=== PATIENT | male | born 1945 | race Caucasian/White ===

== ENCOUNTER 2024-01-01 20:26 | Outpatient (BNV) | payer MEDICARE, MEDICAID, SELFPAY | END 2024-03-01 18:09 | PROVIDERS: Admitting Provider Psychiatry & Neurology Psychiatry; PCP Family Medicine; Visit Provider Internal Medicine | DX: R42 Dizziness and giddiness (principal); I49.1 Atrial premature depolarization; R94.31 Abnormal electrocardiogram [ECG] [EKG] | CPT/HCPCS: 93010 ==

== ENCOUNTER 2024-01-01 20:26 | Inpatient (IN) | payer MEDICARE, MEDICAID, SELFPAY ==
--- NOTE | ~2024-01-01 | CT_ITS ---
EXAMINATION: CT HEAD WITHOUT CONTRAST (STROKE PROTOCOL) CLINICAL INFORMATION: Stroke protocol. Ataxia. COMPARISON: No relevant prior imaging. TECHNIQUE: Contiguous axial imaging was performed from the skull base to vertex without intravenous administration of contrast. This CT examination was performed using dose optimization techniques as appropriate, variously including the following: *Automated exposure control *Adjustment of mA and/or kV according to patient size (this includes techniques or standardized protocols for targeted exams where dose is matched to indication/reason for exam; i.e. extremities or head) *Use of iterative reconstruction technique DLP: 715 mGy-cm FINDINGS: There is no acute intracranial hemorrhage or abnormal extra-axial collection. There is asymmetric loss of parenchymal 1 within the left anterior temporal lobe with corresponding ex vacuo enlargement of the left temporal horn. Murillo-white matter differentiation is grossly preserved and there is no evidence of acute territorial infarct. The calvarium and skull base are grossly intact. No mastoid or middle ear effusion. No active paranasal sinus disease. CT/CT head for stroke IMPRESSION: Unremarkable examination in that there is no evidence of acute territorial infarct or hemorrhage. There is asymmetric loss of parenchymal volume within the left anterior temporal lobe resulting in ex vacuo enlargement of the left anterior temporal lobe. Findings may represent chronic changes of encephalitis or ischemia. Comparison with prior imaging is recommended if available. Otherwise follow-up imaging can be undertaken to assess stability. Alternatively a brain MRI can be obtained for better anatomic characterization of the intracranial anatomy. This critical result was discussed with Dr Ponce at 7:50 PM on 03/01/2024 and it was ascertained that the content and urgency of the report was understood at the time of direct communication.
--- NOTE | ~2024-01-01 | XR_ITS ---
EXAMINATION: XR CHEST CLINICAL INFORMATION: Fever, encephalopathy COMPARISON: None available. TECHNIQUE: Frontal view of the chest was obtained. FINDINGS: vascularity. LUNGS: Extensive patchy airspace disease superimposed on underlying reticular interstitial densities is seen in right upper lobe and medial and inferior right lower lobe. No pneumothorax is seen. BONES: Bony skeleton is intact. XR/XR chest 1V IMPRESSION: Extensive patchy airspace disease superimposed on underlying reticular interstitial densities is seen in right upper lobe and medial and inferior right lower lobe, compatible with pneumonia.
--- NOTE | ~2024-01-01 | US_ITS ---
EXAMINATION: US SCROTUM CLINICAL INFORMATION: Testicular pain. COMPARISON: None available. TECHNIQUE: A sonogram of the scrotum was performed assessing moreno-scale appearance and color Doppler flow. Spectral Doppler analysis of the arterial and venous flow were performed in the testes bilaterally. FINDINGS: RIGHT: Right testicle measures 5.0 x 2.5 x 4.5 cm, volume 29.6 mL. No focal testicular parenchymal lesions are visualized. Spectral Doppler analysis of the arterial and venous flow is normal in the right testis. 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 Punctate calcification in the right testicular parenchyma. Right epididymal head is enlarged secondary to a 5.9 x 4.1 x 4.2 cm cyst with septation and potential debris. No right hydrocele or varicocele is seen. Right epididymal Doppler flow is normal. LEFT: Left testicle measures 5.0 x 3.1 x 3.4 cm, volume 28.1 mL. No focal testicular parenchymal lesions are visualized. Spectral Doppler analysis of the arterial and venous flow is normal in the left testis. Slight tubular ectasia of the left rete tests. Left epididymal head is normal in size. Multiple left epididymal cysts the largest measuring up to 2.9 cm. No left hydrocele or varicocele is seen. Left epididymal Doppler flow is normal. US/US scrotum IMPRESSION: 1. Bilateral testicular vascular flow identified. 2. 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 3. Right epididymal head is enlarged secondary to a 5.9 x 4.1 x 4.2 cm cyst with septation and potential debris. 4. Multiple left epididymal cysts the largest measuring up to 2.9 cm.
--- OUTSIDE RECORDS SUMMARY | 2024-01-01 20:28 | XMS_ITS | Continuity of Care Document ---
Author Organization [facility] Address [address] [place] [address]- Care Team Providers Care Regulatory Affairs Director Name Role Phone Alexx Stoner MD Primary Care Physician [place] [facility] [place] - 10/[place]/[address] [address]- Allergies, Adverse Reactions, Alerts Substance Reaction Severity Status NKA Active Immunizations Given and Recorded Vaccine Date Status Refusal Reason pneumococcal 13-valent vaccine 07/20/19 Given influenza virus vaccine, inactivated 07/20/19 Give n Medications Vitamin B12 1000 mcg oral tablet 1 tablet = 1,000 mcg, By Mouth, Daily, # 30 tablet, 11 Refills, Maintenance, 07/06/20 10:58:00 EDT,[facility]t, [facility] [id number], 173, cm, 07/20/19 10:28:00 EDT, Height, 57.9, kg, 09/29/18 9:35:00 EST, Dry Weight Start Date: 07/06/20 Status: Ordered Problem List Condition Effective Dates Status Health Status Inform ant B12 deficiency(Confirmed) Active Femoral hernia of left side(Confirmed) Active Mild cognitive impairment(Confirmed) Active Varicose veins of legs(Confirmed) Active Social History Social History Type Response Smoking Status Never smoker entered on: 04/06/17 Sex
--- OUTSIDE RECORDS SUMMARY | 2024-01-01 20:28 | XMS_ITS | Continuity of Care Document ---
Author Organization [facility] Address [address] [place] [address]- Care Team Providers Care Aircraft Log Clerk Name Role Phone [place] WOODY, Alexx Primary Care Physician [place] [facility] [place] 05/31/20 - 06/30/[address] [address]- [facility] Allergies, Adverse Reactions, Alerts Substance Reaction Severity Status NKA Active Immunizations Given and Recorded Vaccine Date Status Refusal Reason pneumococcal 13-valent vaccine 07/20/19 Given influenza virus vaccine, inactivated 07/20/19 Give n Problem List Condition Effective Dates Status Health Status Inform ant B12 deficiency(Confirmed) Active DVT - Deep vein thrombosis(Confirmed) Active Femoral hernia of left side(Confirmed) Active Mild cognitive impairment(Confirmed) Active Social history(Confirmed) 1 Active Varicose veins of legs(Confirmed) Active 1never smmoked,etoh 1-2 glasses of wine a wk,no du,retired [employer],lives with partner Social History Social History Type Response Smoking Status Never smoker entered on: 04/06/17 Sex
--- OUTSIDE RECORDS SUMMARY | 2024-01-01 20:28 | XMS_ITS | Continuity of Care Document ---
Author Organization [facility] Address [address] [place] [address]- Care Team Providers Care Nuclear Station Operator Name Role Phone [place] WOODY, Alexx Primary Care Physician En[place] [facility] [place] Date(s): 09/01/23 - 10/01/[address] [address]- Attending Physician: AdmtrMak Admitting Physician: Admtr, Mak Referring Physician: Admtr, Ar8 Allergies, Adverse Reactions, Alerts No Known Allergies Immunizations Given and Recorded Vaccine Date Status Refusal Reason influenza virus vaccine, inactivated 07/10/23 Give n influenza virus vaccine, inactivated 1 07/07/22 Gi mahsa influenza virus vaccine, inactivated 07/20/19 Give n SARS-CoV-2 (COVID-19) mRNA BNT-162b2 vac 01/10/21 Recorded SARS-CoV-2 (COVID-19) mRNA BNT-162b2 vac 12/20/20 Recorded pneumococcal 13-valent vaccine 07/20/19 Given 1Result Comment: 33976-916-20 Medications [facility], Refills 0, Maintenance, 07/07/22 9:25:00 EDT, Supply Start Date: 07/07/22 Status: Ordered FLUoxetine 20 mg oral tablet 2 tablet = 40 mg, By Mouth, Daily, # 120 tablet, 3 Refills, Maintenance, 09/01/23 13:59:00 EST, Tablet, [facility][id number], Partial fill upon patient request if the prescription is for a schedule II opioid drug., 173, cm, 08/10/23 13:47:00 EST... Start Date: 09/01/23 Status: Ordered Gum Guardian - [facility] Gum Guardian - [facility], Refills 0, Maintenance, 07/07/22 9:24:00 EDT, Supply Start Date: 07/07/22 Status: Ordered Ibuprofen Refills 0, Maintenance, 11/07/21 13:40:00 EST, Partial fill upon patient request if the prescription is for a schedule II opioid drug. Start Date: 11/07/21 Status: Ordered Rapid Immune Boost - [facility] Rapid Immune Boost - [facility], Refills 0, Maintenance, 07/07/22 9:25:00 EDT, Supply Start Date: 07/07/22 Status: Ordered Virattack - [facility] Virattack - [facility], Refills 0, Maintenance, 07/07/22 9:25:00 EDT, Supply Start Date: 07/07/22 Status: Ordered Warming Circulation - [facility] Warming Circulation - [facility], Refills 0, Maintenance, 07/07/22 9:25:00 EDT, Supply Start Date: 07/07/22 Status: Ordered Problem List Condition Confirmation Course Effective Dates Status Health St atus Informant Alzheimer's dementia Confirmed Active B12 deficiency Confirmed Active 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
--- OUTSIDE RECORDS SUMMARY | 2024-01-01 20:28 | XMS_ITS | Continuity of Care Document ---
Author Organization [facility] Address [address] [place] [address]- Care Team Providers Care Regional Guide Name Role Phone Alexx Stoner MD Primary Care Physician Encounter [facility] [place] Date(s): 04/09/23 - 05/09/[address] [address]- Allergies, Adverse Reactions, Alerts No Known Allergies Immunizations Given and Recorded Vaccine Date Status Refusal Reason influenza virus vaccine, inactivated 1 07/07/22 Gi mahsa influenza virus vaccine, inactivated 07/20/19 Give n SARS-CoV-2 (COVID-19) mRNA BNT-162b2 vac 01/10/21 Recorded SARS-CoV-2 (COVID-19) mRNA BNT-162b2 vac 12/20/20 Recorded pneumococcal 13-valent vaccine 07/20/19 Given 1Result Comment: 80061-206-16 Medications Brain [facility] - [facility], Refills 0, Maintenance, 07/07/22 9:25:00 EDT, Supply Start Date: 07/07/22 Status: Ordered escitalopram 10 mg oral tablet 1 tablet = 10 mg, By Mouth, Daily, # 90 tablet, 1 Refills, Maintenance, 04/07/23 14:54:00 EDT, Tablet, [facility][id number], Partial fill upon patient request if the prescription is for a schedule II opioid drug., 173, cm, 04/07/23 13:57:00 EDT,... Start Date: 04/07/23 Status: Ordered Gum Guardian - [facility] [...] Femoral hernia of left side Confirmed Active Phlebitis Confirmed Active Varicose veins of legs Confirmed Active Social History Social History Type Response Smoking Status Never smoker entered on: 04/06/17 Sex Patient Care team information Care Team Personnel Name: Alexx Stoner MD Position: S Physician - Primary Care Member Role: PCP Address: Address: [address] [place] [address]- Care Team Related Persons Name: OLEGARIO MALONE Address: home [address] [place] [address]
--- OUTSIDE RECORDS SUMMARY | 2024-01-01 20:28 | XMS_ITS | Continuity of Care Document ---
Author Organization [facility] Address [address] [place] [address]- Care Team Providers Care Spa Supervisor Name Role Phone Alexx Stoner MD Primary Care Physician [phone] [place] [facility] [place] - 05/02/[address] [address]- Allergies, Adverse Reactions, Alerts No Known Allergies Immunizations Given and Recorded Vaccine Date Status Refusal Reason influenza virus vaccine, inactivated 1 07/07/22 Gi mahsa influenza virus vaccine, inactivated 07/20/19 Give n SARS-CoV-2 (COVID-19) mRNA BNT-162b2 vac 01/10/21 Recorded SARS-CoV-2 (COVID-19) mRNA BNT-162b2 vac 12/20/20 Recorded pneumococcal 13-valent vaccine 07/20/19 Given 1Result Comment: 19873-190-00 Medications [facility] - [facility], Refills 0, Maintenance, 07/07/22 9:25:00 EDT, Supply Start Date: 07/07/22 Status: Ordered escitalopram 10 mg oral tablet 1 tablet = 10 mg, By Mouth, Daily, # 90 tablet, 1 Refills, Maintenance, 04/07/23 14:54:00 EDT, Tablet, [id number], Partial fill upon patient request if the [...] Primary Care Member Role: PCP Address: Address: [address] [place] [address]- Care Team Related Persons Name: OLEGARIO MALONE Address: home [address] [place] [address]
--- OUTSIDE RECORDS SUMMARY | 2024-01-01 20:28 | XMS_ITS | Continuity of Care Document ---
Author Organization [facility] Address [address] [address]- Care Team Providers Care Power Shovel Mechanic Name Role Phone Alexx Stoner MD Primary Care Physician [phone] Encounter [facility] [place] Date(s): 01/08/21 - 02/07/21 [facility] [address] [place] [address]- [place] Allergies, Adverse Reactions, Alerts Substance Reaction Severity Status NKA Active Immunizations Given and Recorded Vaccine Date Status Refusal Reason pneumococcal 13-valent vaccine 07/20/19 Given influenza virus vaccine, inactivated 07/20/19 Give n Medications Vitamin B12 1000 mcg oral tablet 1 tablet = 1,000 mcg, By Mouth, Daily, # 30 tablet, 11 Refills, Maintenance, 07/06/20 10:58:00 EDT,Tablet, [id number], 173, cm, 07/20/19 10:28:00 EDT, Height, 57.9, kg, 09/29/18 9:35:00 EST, Dry Weight Start Date: 07/06/20 Status: Ordered Xarelto 20 mg oral tablet 1 tablet = 20 mg, By Mouth, Daily at supper, # 30 tablet, 0 Refills, Maintenance, 01/08/21 12:35:00EDT, Tablet, [id number], Partial fill upon patient request if the prescription is for a schedule II opioid drug., 173, cm, 12/05/20 10:... Start Date: 01/08/21 Status: Ordered Problem List Condition Effective Dates Status Health Status Inform ant B12 deficiency(Confirmed) Active Femoral hernia of left side(Confirmed) Active Mild cognitive impairment(Confirmed) Active Phlebitis(Confirmed) Active Varicose veins of legs(Confirmed) Active Social History Social History Type Response Smoking Status Never smoker entered on: 04/06/17 Sex
--- OUTSIDE RECORDS SUMMARY | 2024-01-01 20:28 | XMS_ITS | Continuity of Care Document ---
Author Organization [facility] Address [address] [place] [address]- Care Team Providers Care Teletray Operator Name Role Phone Alexx Stoner MD Primary Care Physician [place] [facility] [place] 04/01/23 - 05/01/[address] [address]- Allergies, Adverse Reactions, Alerts No Known Allergies Immunizations Given and Recorded Vaccine Date Status Refusal Reason influenza virus vaccine, inactivated 1 07/07/22 Gi mahsa influenza virus vaccine, inactivated 07/20/19 Give n SARS-CoV-2 (COVID-19) mRNA BNT-162b2 vac 01/10/21 Recorded SARS-CoV-2 (COVID-19) mRNA BNT-162b2 vac 12/20/20 Recorded pneumococcal 13-valent vaccine 07/20/19 Given 1Result Comment: [id number] Medications [facility], Refills 0, Maintenance, 07/07/22 9:25:00 EDT, Supply Start Date: 07/07/22 Status: Ordered escitalopram 10 mg oral tablet 1 tablet = 10 mg, By Mouth, Daily, # 90 tablet, 1 Refills, Maintenance, 04/07/23 14:54:00 EDT, Tablet, [facility][id number], Partial fill upon patient request if the [...] Primary Care Member Role: PCP Address: Address: [address] [place] [address]- Care Team Related Persons Name: OLEGARIO MALONE Address: home [address] [place] [address]
--- OUTSIDE RECORDS SUMMARY | 2024-01-01 20:28 | XMS_ITS | Continuity of Care Document ---
Author Organization [facility] Address [address] [place] [address]- Care Team Providers Care Nurse Anesthesia Program Director Name Role Phone Alexx Stoner MD Primary Care Physician En[place] [facility] [place] Date(s): 12/05/20 - 12/12/20 [facility] [address] [place] [address]- Attending Physician: Reg Lemus MD Admitting Physician: Reg Lemus MD Referring Physician: Alexx Stoner MD Allergies, Adverse Reactions, Alerts Substance Reaction Severity Status NKA Active Immunizations Given and Recorded Vaccine Date Status Refusal Reason pneumococcal 13-valent vaccine 07/20/19 Given influenza virus vaccine, inactivated 07/20/19 Give n Medications Vitamin B12 1000 mcg oral tablet 1 tablet = 1,000 mcg, By Mouth, Daily, # 30 tablet, 11 Refills, Maintenance, 07/06/20 10:58:00 EDT,Tablet, [facility] #[id number], 173, cm, 07/20/19 10:28:00 EDT, Height, 57.9, kg, 09/29/18 9:35:00 EST, Dry Weight Start Date: 07/06/20 Status: Ordered Xarelto 20 mg oral tablet 1 tablet = 20 mg, By Mouth, Daily at supper, # 30 tablet, 0 Refills, Maintenance, 11/22/20 13:25:00EST, Tablet, [facility][id number], Partial fill upon patient request if the prescription is for a schedule II opioid drug., 173, cm, 11/21/20 10:... Start Date: 11/22/20 Status: Ordered Problem List Condition Effective Dates Status Health Status Inform ant B12 deficiency(Confirmed) Active Femoral hernia of left side(Confirmed) Active Mild cognitive impairment(Confirmed) Active Phlebitis(Confirmed) Active Varicose veins of legs(Confirmed) Active Vital Signs Most recent to oldest [Reference Range]: 1 Height 173 cm (12/05/20 10:12 AM) Weight 62.9 kg (12/05/20 10:12 AM) Oxygen Saturation [94-100 %] 100 % (12/05/20 10:12 AM) Pulse Rate [55-90 bpm] 94 bpm *H* (12/05/20 10:12 AM) Body Mass Index [18.5-24.99] 21.02 (12/05/20 10:12 AM) Blood Pressure [90-138/55-84 mm Hg] 115/ 58mm Hg (12/05/20 10:12 AM) Blood pressure sites Arm, left (12/05/20 10:12 AM) Weight Obtained Via Standing scale (12/05/20 10:12 AM) Social History Social History Type Response Smoking Status Never smoker entered on: 04/06/17 Sex
--- OUTSIDE RECORDS SUMMARY | 2024-01-01 20:29 | XMS_ITS | Continuity of Care Document ---
Author Organization [facility] Address [address] [address]- Care Team Providers Care Sewer System Supervisor Name Role Phone Alexx Stoner MD Primary Care Physician Encounter [facility] [place] [facility] [place] [id number] Date(s): 12/11/20 - 12/18/20 [facility] [address] [address]- Attending Physician: Reg Lemus MD Admitting Physician: Reg Lemus MD Referring Physician: Reg Lemus MD Allergies, Adverse Reactions, Alerts Substance Reaction Severity Status NKA Active Immunizations Given and Recorded Vaccine Date Status Refusal Reason pneumococcal 13-valent vaccine 07/20/19 Given influenza virus vaccine, inactivated 07/20/19 Give n Medications Vitamin B12 1000 mcg oral tablet 1 tablet = 1,000 mcg, By Mouth, Daily, # 30 tablet, 11 Refills, Maintenance, 07/06/20 10:58:00 EDT,Tablet, [id number], 173, cm, 07/20/19 10:28:00 EDT, Height, 57.9, kg, 09/29/18 9:35:00 EST, Dry Weight Start Date: 07/06/20 Status: Ordered Xarelto 20 mg oral tablet 1 tablet = 20 mg, By Mouth, Daily at supper, # 30 tablet, 0 Refills, Maintenance, 11/22/20 13:25:00EST, Tablet, [facility][id number], Partial fill upon patient request if the [...]
--- OUTSIDE RECORDS SUMMARY | 2024-01-01 20:29 | XMS_ITS | Continuity of Care Document ---
Author Organization [facility] Address [address] [place] [address]- Care Team Providers Care Physical Aerodynamicist Name Role Phone Alexx Stoner MD Primary Care Physician Encounter [facility] [place] Date(s): 11/15/20 - 12/15/20 [facility] [address] [place] [address]- Attending Physician: Mak Vazquez Admitting Physician: AdmMak joy Referring Physician: AdmtrMak Allergies, Adverse Reactions, Alerts Substance Reaction Severity Status NKA Active Immunizations Given and Recorded Vaccine Date Status Refusal Reason pneumococcal 13-valent vaccine 07/20/19 Given influenza virus vaccine, inactivated 07/20/19 Give n Medications Vitamin B12 1000 mcg oral tablet 1 tablet = 1,000 mcg, By Mouth, Daily, # 30 tablet, 11 Refills, Maintenance, 07/06/20 10:58:00 EDT,Tablet, [facility] #[id number], 173, cm, 07/20/19 10:28:00 EDT, Height, 57.9, kg, 09/29/18 9:35:00 EST, Dry Weight Start Date: 07/06/20 Status: Ordered Xarelto 20 mg oral tablet 1 tablet = 20 mg, By Mouth, Daily at supper, # 30 tablet, 0 Refills, Maintenance, 11/22/20 13:25:00EST, Tablet, [facility] #[id number], Partial fill upon patient request if the [...]
--- OUTSIDE RECORDS SUMMARY | 2024-01-01 20:29 | XMS_ITS | Continuity of Care Document ---
Author Organization [facility] Address [address] [place] [address]- Care Team Providers Care Machine Pie Maker Name Role Phone Alexx Stoner MD Primary Care Physician [phone] Encounter [facility] [place] Date(s): 07/09/21 - 08/08/21 [facility] [address] [place] [address]- Attending Physician: Mak Vazquez Admitting Physician: AdmMak [...] Refills, Maintenance, 07/06/20 10:58:00 EDT,Tablet, [facility] #[id number], 173, cm, 07/20/19 10:28:00 EDT, Height, 57.9, kg, 09/29/18 9:35:00 EST, Dry Weight Start Date: 07/06/20 Status: Ordered Xarelto 20 mg oral tablet 1 tablet = 20 mg, By Mouth, Daily at supper, # 30 tablet, 0 Refills, Maintenance, 01/08/21 12:35:00EDT, Tablet, [facility] #[id number], Partial fill upon patient request if the [...]
--- OUTSIDE RECORDS SUMMARY | 2024-01-01 20:29 | XMS_ITS | Continuity of Care Document ---
Author Organization [facility] Medicine Address [address] [place] [address]- Care Team Providers Care Sprinkler Fitter Apprentice Name Role Phone Alexx Stoner MD Primary Care Physician Encounter [facility] [place] Date(s): 04/02/23 - 05/02/[address] [address]- Allergies, Adverse Reactions, Alerts No Known Allergies Immunizations Given and Recorded Vaccine Date Status Refusal Reason influenza virus vaccine, inactivated 1 07/07/22 Gi mahsa influenza virus vaccine, inactivated 07/20/19 Give n SARS-CoV-2 (COVID-19) mRNA BNT-162b2 vac 01/10/21 Recorded SARS-CoV-2 (COVID-19) mRNA BNT-162b2 vac 12/20/20 Recorded pneumococcal 13-valent vaccine 07/20/19 Given 1Result Comment: 46933-284-54 Medications [facility], Refills 0, Maintenance, 07/07/22 9:25:00 EDT, Supply Start Date: 07/07/22 Status: Ordered escitalopram 10 mg oral tablet 1 tablet = 10 mg, By Mouth, Daily, # 90 tablet, 1 Refills, Maintenance, 04/07/23 14:54:00 EDT, Tablet, [facility] #[id number], Partial fill upon patient request if the [...] Primary Care Member Role: PCP Address: Address: [address] [place] [address]- Care Team Related Persons Name: OLEGARIO MALONE Address: home [address] [place] [address]
--- OUTSIDE RECORDS SUMMARY | 2024-01-01 20:29 | XMS_ITS | Continuity of Care Document ---
Author Organization [facility] Address [address] [place] [address]- Care Team Providers Care Order Selector Name Role Phone Alexx Stoner MD Primary Care Physician [phone] Encounter [facility] Date(s): 12/13/23 - 12/15/[address] [address]- Encounter Diagnosis Cough(Final) - 12/13/23 Fever(Final) - 12/13/23 Weakness(Final) - 12/13/23 Dementia(Final) - 12/13/23 Pneumonia(Final) - 12/13/23 Discharge Disposition: A-Transfer VNA/Home Health Attending Physician: Caprice Grant MD Admitting Physician: Aayz Urias Referring Physician: Not on Staff, Referring MD Allergies, Adverse Reactions, Alerts No Known Allergies Immunizations Given and Recorded Vaccine Date Status Refusal Reason influenza virus vaccine, inactivated 07/10/23 Give n influenza virus vaccine, inactivated 1 07/07/22 Gi mahsa influenza virus vaccine, inactivated 07/20/19 Give n SARS-CoV-2 (COVID-19) mRNA BNT-162b2 vac 01/10/21 Recorded SARS-CoV-2 (COVID-19) mRNA BNT-162b2 vac 12/20/20 Recorded pneumococcal 13-valent vaccine 07/20/19 Given 1Result Comment: [id number] Medications azithromycin 500 mg oral tablet 1 tablet = 500 mg, By Mouth, Daily, for 3 days, # 3 tablet, 0 Refills, Acute 12/17/23 10:54:00 EDT,12/14/23 10:54:00 EDT, Tablet, [id number], Partial fill upon patient request if theprescription is for a schedule II opioid drug., 180... Start Date: 12/14/23 Stop Date: 12/17/23 Status: Ordered [facility], Refills 0, Maintenance, 07/07/22 9:25:00 EDT, Supply Start Date: 07/07/22 Status: Ordered cefdinir 300 mg oral capsule 1 capsule = 300 mg, By Mouth, Every 12 hours, for 5 days, # 10 capsule, 0 Refills, Acute 12/19/23 10:53:00 EDT, 12/14/23 10:53:00 EDT, Capsule, [id number], Partial fill upon patient request if the prescription is for a schedule II opio... Start Date: 12/14/23 Stop Date: 12/19/23 Status: Ordered FLUoxetine 20 mg oral tablet 2 tablet = 40 mg, By Mouth, Daily, # 120 tablet, 3 Refills, Maintenance, 09/01/23 13:59:00 EST, Tablet, [id number], Partial fill upon patient request if the prescription is for a schedule II opioid drug., 173, cm, 08/10/23 13:47:00 EST... Start Date: 09/01/23 Status: Ordered Gum Guardian - [facility], Refills 0, Maintenance, 07/07/22 9:24:00 EDT, Supply Start Date: 07/07/22 Status: Ordered Rapid Immune Boost - [facility] [...] with depression Confirmed Active Phlebitis Confirmed Active Underweight Confirmed Active Varicose veins of legs Confirmed Active Results Radiology Reports * Exam Date Time Procedure Performing Provider Status 12/13/23 4:13 AM Chest 2 Views Frontal and Lat Uche , Sheldon; Auth (Verified) Notes: (Chest 2 Views Frontal and Lat) Reason For Exam: Shortness of Breath, Fever;Other: RESULT: Chest 2 Views Frontal and Lat Chest 2 Views Frontal and Lat Hx of Present Illness: weakness, cough; Reason: Other:; Shortness of Breath, Fever; Clinical Question(s): Pneumonia COMPARISON: None. FINDINGS: LINES AND TUBES: None. LUNGS AND PLEURA: Large lung volumes. There is a poorly defined right upper lobe opacity. No confluent opacity seen in the left lung. Possible trace pleural effusions. No pneumothorax. HEART, MEDIASTINUM AND NIKI: Heart is normal in size. Aorta is mildly calcified. BONES AND SOFT TISSUES: No acute abnormality. IMPRESSION: Right upper lobe opacity could represent pneumonia in the appropriate clinical setting. Differential diagnosis also includes malignancy. Follow-up with nonemergent chest CT with intravenous contrast should be considered based on clinical suspicion for malignancy. An actionable message (Yellow) has been communicated via the [employer] system on 12/13/2023 8:48 AM, Message ID [id number]. WSN: [id number] Ordering Physician: Félix Avilez Dictated By: Delta Monk MD Dictated Date/Time: 12/13/23 8:48 am Reviewed By: Delta Monk MD Signed By: Delta Monk MD Signed Date/Time: 12/13/23 8:48 am Transcribed By: MICKI Transcribed Date/Time: 12/13/23 8:46 am Vital Signs Most recent to oldest [Reference Range]: 1 2 3 Height 180 cm (12/15/23 12:04 PM) 180 cm (12/15/23 7:12 AM) 180 cm (12/15/23 4:15 AM) Weight 55.6 kg (12/13/23 6:22 AM) 82.7 kg (12/13/23 6:00 AM) 82.7 kg (12/13/23 4:45 AM) Oxygen Saturation [94-100 %] 93 % *L* (12/15/23 12:04 PM) 94 % (12/15/23 7:12 AM) 95 % (12/15/23 4:15 AM) Pulse Rate [55-90 bpm] 124 bpm *H* (12/15/23 12:04 PM) 69 bpm (12/15/23 7:12 AM) 79 bpm (12/15/23 4:15 AM) Body Mass Index [18.5-24.99 kg/m2] 17.16 kg/m2 *L* (12/13/23 6:22 AM) 25.52 kg/m2 *H* (12/13/23 6:00 AM) 25.52 kg/m2 *H* (12/13/23 4:45 AM) Blood Pressure [90-138/55-84 mm Hg] 115/68mm Hg (12/15/23 12:04 PM) 118/70mm Hg (12/15/23 7:12 AM) 126/80mm Hg (12/15/23 4:15 AM) Respiratory Rate [16-30 br/min] 16 br/min (12/15/23 12:04 PM) 16 br/min (12/15/23 7:12 AM) 16 br/min (12/15/23 4:15 AM) Temperature [96.8-100.4 DegF] 98.4 DegF (12/15/23 12:04 PM) 98.1 DegF (12/15/23 7:12 AM) 98.9 DegF (12/15/23 4:15 AM) Mode of Delivery (Oxygen) Room air (12/15/23 12:04 PM) Room air (12/15/23 7:12 AM) Room air (12/15/23 4:15 AM) Blood pressure sites Arm, right (12/15/23 12:04 PM) Arm, right (12/15/23 7:12 AM) Arm, right (12/15/23 4:15 AM) Temperature Route Oral (12/15/23 12:04 PM) Oral (12/15/23 7:12 AM) Oral (12/15/23 4:15 AM) Dry Weight 55.6 kg (12/13/23 6:22 AM) 82.7 kg (12/13/23 6:00 AM) 82.7 kg (12/13/23 4:45 AM) Weight Obtained Via Patient/family state d (12/13/23 1:53 AM) Dry Weight Obtained Via Patient/family s tated (12/13/23 1:53 AM) Social History Social History Type Response Smoking Status Never smoker entered on: 04/06/17 Sex Admission evaluation note * Sky BALBUENAAyaz: PERFORM Event Display: Admission Note Authored Date: [id number] Patient: ??ROSA SIERRA ? Age:??78 Years?Sex:??Male?:??1945?? Chief Complaint/Reason for Consultation generalized weakness, cough.. fell earlier today.. baseline dementia History of Present Illness DOS: 12/13/2023 ?? A 78-year-old male with a history of Alzheimer's dementia with frontal variant, anxiety, depression, varicose veins, phlebitis, and B12 deficiency presented to the ER due to increased weakness over the last 24 hours, accompanied by a cough and fever, as reported by EMS and his significant other. The patient's dementia made history taking challenging, but he was febrile upon EMS transport, registering a temperature of 100.7. Physically, he was found to be slightly tachypneic with crackles in his right lung base, indicative of pneumonia, alongside slightly dry mucous membranes but no acute distress or other significant findings. The differential diagnosis focused on pneumonia, with considerations for viral etiologies such as COVID, RSV, and influenza, and also entertained the possibilityof occult bacteremia, sepsis, and UTI. Empiric treatment for community-acquired pneumonia was initiated with ceftriaxone, alongside chest x-ray, screening labs, blood cultures, lactic acid, and IV hyd ration, with an anticipated admission due to his significant weakness and self- care inability. Lab results highlighted leukocytosis, suggestive of an infection, and urinalysis showed possible dehydration or early renal concentration efforts. Chest x-ray confirmed pneumonia in the right middle lobe. Given the pneumonia and the patient's overall presentation, including elevated WBC count and clinical symptoms consistent with his radiological findings, he was admitted for further management. Review of Systems All other systems were reviewed and are negative. Objective Measurements?? Height: 180 cm (12/13/23) Weight: 55.6 kg (12/13/23) Dry Weight: 55.6 kg (12/13/23) Body Mass Index:??17.16 kg/m2??Low (12/13/23) ? Vital Signs?? Temperature: 98.2 DegF (12/13/23 06:22:00) Temperature Route: Oral (12/13/23 06:22:00) Pulse Rate: 72 bpm (12/13/23 06:22:00) Respiratory Rate: 16 br/min (12/13/23 06:22:00) Systolic Blood Pressure: 97 mm Hg (12/13/23 06:22:00) Diastolic Blood Pressure: 57 mm Hg (12/13/23 06:22:00) Blood pressure sites: Arm, left (12/13/23 06:22:00) Mean Arterial Pressure: 70 mm Hg (12/13/23 06:22:00) Pulse Pressure: 40 mm Hg (12/13/23 06:22:00) Oxygen Saturation: 94 % (12/13/23 06:22:00) Mode of Delivery (Oxygen): Room air (12/13/23 06:22:00) Early Warning Score: 4 (12/13/23 06:25:48) ? Perfusion Assessment AV fistula: No (12/13/23 02:00:00) Cardiovascular Comment: See Pt Care Note for details (12/13/23 02:00:00) Cardiovascular Symptoms: None (12/13/23 02:00:00) Heart Rhythm: Irregular (12/13/23 02:00:00) Heart Sounds: S1, S2 (12/13/23 02:00:00) Jugular Venous Distention: Absent at 45 degrees (12/13/23 02:00:00) Pacemaker: No (12/13/23 02:00:00) Skin Temperature Lower Extremities: Warm (12/13/23 02:00:00) Skin Temperature Upper Extremities: Warm (12/13/23 02:00:00) ? Pain Scores 1 - 10 Pain Scale Score: 0 (01:53) ? Ventilator Settings?? No qualifying data available. ? Intake/Output? No Data Available ?? Precautions No Precautions documented.? Mobility & Ambulation Level Mobility & Ambulation Level?? No qualifying data available. ?? Therapeutic Activity Therapeutic Activities/Mobility/Balance?? No qualifying data available. ? Physical Exam Constitutional: Alert, in no acute distress. Head: Normocephalic. Eyes: Pupils are equal, round and reactive to light. Extraocular muscles intact. No pallor or scleral icterus Ear, Nose and Throat: mucous membranes moist. Ears and nose - no obvious deformities Trachea midline. Neck: Supple, Full range of motion.No JVD or bruits. Respiratory:??Clear to auscultation. No wheezing or rhonchi.??No use of accessory muscles. No tactile fremitus.?? Cardiovascular:??PMI not visible. S1 S2 regular. No murmurs, rubs or gallops. Gastrointestinal:??Abdomen soft, non-tender, non-distended. Normal bowel sounds. No pulsatile mass.No hepatosplenomegaly. Genitourinary:??No costovertebral angle tenderness. Extremities: No lower extremity pitting edema. No cyanosis or clubbing. Neurologic:??AAOx3, Cranial nerves II-XII grossly intact. Speech normal, no facial droop. No focal neurological deficits. Moves all extremities spontaneously.?? Psychiatric: Normal mood and affect. Assessment/Plan Diagnoses Cough ??(R05.9) Dementia ??(F03.90) Fever ??(R50.9) Pneumonia ??(J18.9) Weakness ??(R53.1) ?? Cough (R05.9):?? Fever (R50.9):?? Weakness (R53.1):?? Pneumonia (J18.9):?? He was admitted to telemetry as inpatient. Continue ceftriaxone and azithromycin. Follow-up with blood cultures, procalcitonin,??strep antigen and sputum cultures. Tylenol as needed. Cough syrup. Speech and swallow evaluation??for??aspiration. PT evaluation. Case management consult. ?? Dementia (F03.90):?? Resume home management. ?? VTE Prophylaxis:??Lovenox. ?VTE Prophylaxis Assessment:??VTE Prophylaxis Ordered ?? Code Status:??DNR/DNI as per [facility]. ?Order Code Status:??Code Status Ordered ?? I spent a total of 75 minutes today reviewing the chart/medical records, speaking with the patient,formulating and discussing the treatment plan, and documenting the findings and encounter. ? Histories Allergies Allergies ?(Active and Proposed Allergies Only) NKA? (Severity: Unknown severity, Onset: Unknown) ? Past Medical History/Problem List Active Problems??(8) Alzheimer's dementia Alzheimer's dementia with behavioral disturbance Anxiety with depression B12 deficiency Femoral hernia of left side Phlebitis Underweight Varicose veins of legs ? Past Surgical History No surgery history documented. ? Social History Alcohol Details:??Other: occ. Employment/School Details:??Other: retired [employer]. Home/Environment Details:??Other: lives with partner,has 4 children-some live in [place]. Nutrition/Health Details:??Diet: Vegetarian. ??Caffeine intake amount: rarely. Substance Abuse Details:??Use: Never. Tobacco Details:??Never smoker Details:??Use: Never smoker. ? Psychosocial History ? Family History Father: Family history of sudden Brother: Cancer of prostate Daughter: Down syndrome ? 26-NOV-2013 07:29:58<$> Son: Bipolar ? Travel History Travel Outside [facility] [place]: No ? Medications Home Medications Fluoxetine (FLUoxetine 20 mg oral tablet)?2?tab(s)?40?Milligram?By Mouth?Daily ? Inpatient Medications Medications (10) Active SCHEDULED: (2) Enoxaparin 40 mg Inj (Enoxaparin Inj) ??40 mg 0.4 mL, Subcutaneous Injection, Daily NaCl 0.9% Flush 3ml (NaCL 0.9% Flush) ??3 mL, IV Push, Every 8 hours CONTINUOUS: (0) PRN: (8) Acetaminophen 325 mg Tablet (Acetaminophen Tablet) ??650 mg, By Mouth, Every 4 hours Dextromethorphan-Guaifenesin 20 mg-200 mg/10 mL Liqu UD (Robitussin DM Liquid) ??10 mL, By Mouth, Every 4 hours Docusate Sodium 100 mg Capsule (Docusate Sodium Capsule) ??100 mg 1 capsule, By Mouth, 2 times a day Melatonin 3 mg Tablet (Melatonin Tablet) ??3 mg, By Mouth, Daily at bedtime NaCl 0.9% Flush 3ml (NaCL 0.9% Flush) ??3 mL, IV Push, Every 8 hours Polyethylene Glycol 17 Gm Powder (MiraLax Powder) ??17 Gm 1 pack/packet, By Mouth, Daily Senna Tablet ??8.6 mg 1 tablet, By Mouth, 2 times a day Simethicone 80 mg Chewable Tablet (Simethicone Tablet) ??80 mg, Chew, 3 times a day ? 72 Hour Antibiotic History Stopped Antibiotics Stop Date/Time Last Administered First Administered Azithromycin??500 mg, IVPB, Once 12/13/2023 03:31 12/13/2023 03:30 12/13/2023 03:30 Ceftriaxone??1 Gm, IVPB, Once 12/13/2023 02:49 12/13/2023 02:48 12/13/2023 02:48 ? Vaccinations and Immunoprophylaxis influenza virus vaccine, inactivated: 0.7 mL (07/10/23 10:55:00) influenza virus vaccine, inactivated: 0.7 mL (07/07/22 09:51:00) influenza virus vaccine, inactivated: 0.5 mL (07/20/19 10:30:00) pneumococcal 13-valent vaccine: 0.5 mL (07/20/19 10:30:00) SARS-CoV-2 (COVID-19) mRNA BNT-162b2 vac: 0.5 Unknown (01/10/21 08:00:00) SARS-CoV-2 (COVID-19) mRNA BNT-162b2 vac: 0.5 Unknown (12/20/20 08:00:00) ? Results Recent Labs BLOOD COUNT & DIFF WBC 14.5 k/mm3 (High)?? 12/13/2023 02:42 RBC 3.92 m/mm3 (Low)?? 12/13/2023 02:42 Hgb 12.6 Gm/dL (Low)?? 12/13/2023 02:42 Hct 37.3 % (Low)?? 12/13/2023 02:42 MCV 95.2 femtoliters (High)?? 12/13/2023 02:42 MCH 32.1 pg ()?? 12/13/2023 02:42 MCHC 33.8 g/dL ()?? 12/13/2023 02:42 Platelet Count 250 k/mm3 ()?? 12/13/2023 02:42 RDW-SD 47.2 femtoliters (High)?? 12/13/2023 02:42 MPV 10.2 femtoliters ()?? 12/13/2023 02:42 Nucleated RBC (Automated) 0.0 #/100 WBC'S ()?? 12/13/2023 02:42 Abs. NRBC 0.0 k/mm3 ()?? 12/13/2023 02:42 Abs. Neut 12.6 k/mm3 (High)?? 12/13/2023 02:42 Abs. Lymph 0.6 k/mm3 (Low)?? 12/13/2023 02:42 Abs. [place] 1.1 k/mm3 ()?? 12/13/2023 02:42 Abs. Eo 0.0 k/mm3 ()?? 12/13/2023 02:42 Abs. Baso 0.0 k/mm3 ()?? 12/13/2023 02:42 Neut % 87.4 % (High)?? 12/13/2023 02:42 Lymph % 4.4 % (Low)?? 12/13/2023 02:42 [place] % 7.6 % ()?? 12/13/2023 02:42 Eos % 0.0 % ()?? 12/13/2023 02:42 Baso % 0.1 % ()?? 12/13/2023 02:42 Imm Gran 0.5 % ()?? 12/13/2023 02:42 Abs. Imm Gran 0.1 k/mm3 ()?? 12/13/2023 02:42 ?? CARDIAC Nt-Probnp 322 pg/mL ()?? 12/13/2023 02:42 High Sensitivity Troponin (HSTnT) 12 ng/L ()?? 12/13/2023 02:42 ?? CHEM GENERAL Sodium 134 mmol/L ()?? 12/13/2023 02:42 Potassium 4.2 mmol/L ()?? 12/13/2023 02:42 Chloride 99 mmol/L ()?? 12/13/2023 02:42 Bicarbonate Level 23 mmol/L ()?? 12/13/2023 02:42 Anion Gap 12 ()?? 12/13/2023 02:42 Glucose Level 124 mg/dL (High)?? 12/13/2023 02:42 BUN 25 mg/dL (High)?? 12/13/2023 02:42 Creatinine-Blood 1.0 mg/dL ()?? 12/13/2023 02:42 Estimated GFR Creatinine 72 ML/MIN/1.73 M2 ()?? 12/13/2023 02:42 Calcium 8.3 mg/dL (Low)?? 12/13/2023 02:42 Protein, Total 7.1 Gm/dL ()?? 12/13/2023 02:42 Albumin 3.5 Gm/dL ()?? 12/13/2023 02:42 AG Ratio 1.0 ()?? 12/13/2023 02:42 Alkaline Phosphatase 86 units/L ()?? 12/13/2023 02:42 AST (SGOT) 47 units/L (High)?? 12/13/2023 02:42 ALT (SGPT) 56 units/L (High)?? 12/13/2023 02:42 Bilirubin, Total 1.2 mg/dL ()?? 12/13/2023 02:42 Lactate 0.7 mmol/L ()?? 12/13/2023 02:42 ?? HEME OTHER Hold Blue Top SPECIMEN DISCARDED AFTER 4 HOURS. ()?? 12/13/2023 02:42 ?? MISC. CHEMISTRY Hold Gel Top SPECIMEN DISCARDED AFTER 1 WEEK ()?? 12/13/2023 02:42 ?? UA/URINALYSIS Appear/Color, Urine YELLOW ()?? 12/13/2023 03:48 Clarity CLEAR (N)?? 12/13/2023 03:48 Specific [place], Urine >1.030 (High)?? 12/13/2023 03:48 pH, Urine 6.0 ()?? 12/13/2023 03:48 Albumin, Urine 2+ (Abnormal)?? 12/13/2023 03:48 Glucose, Urine NEGATIVE (N)?? 12/13/2023 03:48 Ketones, Urine 1+ (Abnormal)?? 12/13/2023 03:48 Bilirubin, Urine NEGATIVE (N)?? 12/13/2023 03:48 Hemoglobin, Urine TRACE (Abnormal)?? 12/13/2023 03:48 Nitrite, Urine NEGATIVE (N)?? 12/13/2023 03:48 Leukocyte, Urine NEGATIVE (N)?? 12/13/2023 03:48 Urobilinogen 4 mg/dL (Abnormal)?? 12/13/2023 03:48 WBC's, Urine NONE SEEN /HPF ()?? 12/13/2023 03:48 RBC's, Urine 5 /HPF (High)?? 12/13/2023 03:48 Mucus SLIGHT /LPF ()?? 12/13/2023 03:48 Hold Urine Culture Testing available 48 hours from time of collection. ()?? 12/13/2023 03:48 ?? URINE OTHER Est Creatinine Clearance 47.88 mL/min ()?? 12/13/2023 06:25 ?? VIROLOGY Influenza A PCR NEGATIVE ()?? 12/13/2023 02:00 Influenza B PCR NEGATIVE ()?? 12/13/2023 02:00 RSV PCR NEGATIVE ()?? 12/13/2023 02:00 COVID-19 PCR Specimen Source NASAL ()?? 12/13/2023 02:00 COVID-19 PCR Result NEGATIVE ()?? 12/13/2023 02:00 ? Abnormal Labs ?? BLOOD COUNT & DIFF ??Abs. Imm Gran ??0.1 k/mm3 () ??12/13/2023 02:42 ??Abs. Lymph ??0.6 k/mm3 (Low) ??12/13/2023 02:42 ??Abs. NRBC ??0.0 k/mm3 () ??12/13/2023 02:42 ??Abs. Neut ??12.6 k/mm3 (High) ??12/13/2023 02:42 ??Hct ??37.3 % (Low) ??12/13/2023 02:42 ??Hgb ??12.6 Gm/dL (Low) ??12/13/2023 02:42 ??Imm Gran ??0.5 % () ??12/13/2023 02:42 ??Lymph % ??4.4 % (Low) ??12/13/2023 02:42 ??MCV ??95.2 femtoliters (High) ??12/13/2023 02:42 ??Neut % ??87.4 % (High) ??12/13/2023 02:42 ??Nucleated RBC (Automated) ??0.0 #/100 WBC'S () ??12/13/2023 02:42 ??RBC ??3.92 m/mm3 (Low) ??12/13/2023 02:42 ??RDW-SD ??47.2 femtoliters (High) ??12/13/2023 02:42 ??WBC ??14.5 k/mm3 (High) ??12/13/2023 02:42 ? CARDIAC ??High Sensitivity Troponin (HSTnT) ??12 ng/L () ??12/13/2023 02:42 ? CHEM GENERAL ??AG Ratio ??1.0 () ??12/13/2023 02:42 ??ALT (SGPT) ??56 units/L (High) ??12/13/2023 02:42 ??AST (SGOT) ??47 units/L (High) ??12/13/2023 02:42 ??BUN ??25 mg/dL (High) ??12/13/2023 02:42 ??Calcium ??8.3 mg/dL (Low) ??12/13/2023 02:42 ??Estimated GFR Creatinine ??72 ML/MIN/1.73 M2 () ??12/13/2023 02:42 ??Glucose Level ??124 mg/dL (High) ??12/13/2023 02:42 ? HEME OTHER ??Hold Blue Top ??SPECIMEN DISCARDED AFTER 4 HOURS. () ??12/13/2023 02:42 ? MISC. CHEMISTRY ??Hold Gel Top ??SPECIMEN DISCARDED AFTER 1 WEEK () ??12/13/2023 02:42 ? UA/URINALYSIS ??Albumin, Urine ??2+ (Abnormal) ??12/13/2023 03:48 ??Appear/Color, Urine ??YELLOW () ??12/13/2023 03:48 ??Bilirubin, Urine ??NEGATIVE (N) ??12/13/2023 03:48 ??Clarity ??CLEAR (N) ??12/13/2023 03:48 ??Glucose, Urine ??NEGATIVE (N) ??12/13/2023 03:48 ??Hemoglobin, Urine ??TRACE (Abnormal) ??12/13/2023 03:48 ??Hold Urine Culture ??Testing available 48 hours from time of collection. () ??12/13/2023 03:48 ??Ketones, Urine ??1+ (Abnormal) ??12/13/2023 03:48 ??Leukocyte, Urine ??NEGATIVE (N) ??12/13/2023 03:48 ??Mucus ??SLIGHT /LPF () ??12/13/2023 03:48 ??Nitrite, Urine ??NEGATIVE (N) ??12/13/2023 03:48 ??RBC's, Urine ??5 /HPF (High) ??12/13/2023 03:48 ??Specific [place], Urine ??>1.030 (High) ??12/13/2023 03:48 ??Urobilinogen ??4 mg/dL (Abnormal) ??12/13/2023 03:48 ? VIROLOGY ??COVID-19 PCR Specimen Source ??NASAL () ??12/13/2023 02:00 ??COVID-19 PCR Result ??NEGATIVE () ??12/13/2023 02:00 ??Influenza A PCR ??NEGATIVE () ??12/13/2023 02:00 ??Influenza B PCR ??NEGATIVE () ??12/13/2023 02:00 ??RSV PCR ??NEGATIVE () ??12/13/2023 02:00 ? Note: Critical results are displayed in red. ? Blood Glucose Trend Glucose Level:??124 mg/dL??High (12/13/23 02:42:00) ? Coagulation Profile?? No qualifying data available. ?? LFT Albumin: 3.5 Gm/dL (02:42) Alkaline Phosphatase: 86 units/L (02:42) ALT (SGPT):??56 units/L??High (02:42) AST (SGOT):??47 units/L??High (02:42) Bilirubin, Total: 1.2 mg/dL (02:42) ?? Urinalysis Albumin, Urine: 2+ Abnormal (03:48) Appear/Color, Urine: YELLOW (03:48) Bilirubin, Urine: NEGATIVE (03:48) Clarity: CLEAR (03:48) Est Creatinine Clearance: 47.88 mL/min (06:25) Est Creatinine Clearance: 64.58 mL/min (03:15) Glucose, Urine: NEGATIVE (03:48) Hemoglobin, Urine: TRACE Abnormal (03:48) Hold Urine Culture: Testing available 48 hours from time of collection. (03:48) Ketones, Urine: 1+ Abnormal (03:48) Leukocyte, Urine: NEGATIVE (03:48) Mucus: SLIGHT (03:48) Nitrite, Urine: NEGATIVE (03:48) pH, Urine: 6 (03:48) RBC's, Urine:??5 /HPF??High (03:48) Specific [place], Urine:??>1.030??High (03:48) Urobilinogen: 4 mg/dL Abnormal (03:48) WBC's, Urine: NONE SEEN (03:48) ?? Microbiology ?? COVID-19, RSV, and Flu A/B, Rapid PCR?? Completed?? Source: Nasal Body Site: Nose Collected Dt/Tm: 12/13/2023 02:00 Last Updated Dt/Tm: 12/13/2023 03:03 ? Cardiology Labs Nt-Probnp: 322 pg/mL (12/13/23 02:42:00) High Sensitivity Troponin (HSTnT): 12 ng/L (12/13/23 02:42:00) ?? Blood Gases?? No qualifying data available. ?? EKG study * Event Display: ECG 12-Lead Authored Date: Please click on pdf link to open report * Event Display: ECG 12-Lead Authored Date: Ventricular Rate: 92 BPM Atrial Rate: 92 BPM P-R Interval: 132 ms QRS Duration: 66 ms Q-T Interval: 378 ms QTC Calculation(Bazett): 467 ms P [place]: 63 degrees R [place]: -10 degrees T [place]: 49 degrees Sinus rhythm with Premature atrial complexes with Aberrant conduction Otherwise normal ECG When compared with ECG of 07-MAR-2022 15:46, No significant change was found Confirmed by BEATRIZ KEITH ([id number]) on 12/13/2023 2:36:56 PM Elizabeth: [facility] Progress note * Ivory Renae: PERFORM, SIGN, VERIFY Event Display: Progress Note Hospital Authored Date: [id number] Patient: ROSA SIERRA Age: 78 years Sex: Male : 1945 Associated Diagnoses: None Author: Ivory Renae Findings Problem Related to Alteration in Respiratory Function (new) : Alteration in Respiratory Function/new 12/15/2023 7:00 EDT Alteration in Resp Status Related to Pneumonia Goals & Outcomes, Respiratory Pt will maintain/resume baseline physical assessment, Pt will notdevelop complications r/t mechanical ventilation, Pt will maintain adequate nutritional intake, Pt will maintain/resume normal fluid/electrolyte balance, Pt will not develop complications r/t immobility Interventions, Respiratory Assess for and report S&S of respiratory distress, Position for comfort & optimal oxygenation, Monitor sputum color & consistency. Report changes to MD, Teach/encourage use of incentive spirometer Goals/Interventions, Respiratory Yes Respiratory, Problem Start 12/13/2023 11:54 Reviewed Plan with, Respiratory Patient Patient Progression, Respiratory Patient progressing according to plan . Nursing Data Respiratory/Pulmonary Data. : Respiratory/Pulmonary Data. 12/15/2023 9:30 EDT Respiratory Symptoms None Respiratory effort Unlabored Left Upper Lobe Breath Sounds Diminished Right Upper Lobe Breath Sounds Diminished Right Middle Lobe Breath Sounds Diminished Left Lower Lobe Breath Sounds Diminished Right Lower Lobe Breath Sounds Diminished Respiratory distress None Respiratory Treatment(s) Cough and deep breathe Respiratory WNL except . Vital Signs : VITAL SIGNS SECTION 12/15/2023 7:12 EDT Temperature 98.1 DegF Temperature Route Oral Pulse Rate 69 bpm Respiratory Rate 16 br/min Systolic Blood Pressure 118 mm Hg Diastolic Blood Pressure 70 mm Hg Blood pressure sites Arm, right Mean Arterial Pressure 86 mm Hg Pulse Pressure 48 mm Hg Oxygen Saturation 94 % Mode of Delivery (Oxygen) Room air . Evaluation Report received from Roshni PALMA Alert and oriented to self and place. VSS. No complaints of pain or discomfort Lungs are clear but diminished. Patient is on RA satting 9-95%. No SOB or cough Standby to the bathroom. Plan is to discharge home with services today Safety measures in place. Bed locked and in the lowest position. Call sainz within reach. Discharge Information Functional Assessment Personal hygiene: self. Feeding ability: self. Standing ability: with assist. Mobility assistance: ambulate, assist of 1. Chair transfer: with assist. Wheelchair: assist. Case Management Discharge Plan : Case Management Discharge Plan Data 12/15/2023 16:29 EDT Discharge Level of Care at Discharge [facility] [place] 12/15/2023 13:26 EDT Discharge Level of Care at Discharge Homehealth/VNA Discharge [facility] Clinical Research Director #1 [employer] Service Categories #1 Physical Therapy, Half-Way Service Comments #1 mazin [facility] will call to arrange a time Name of Person Notified of Transfer pt Name of Receiving Clinician/Provider allscripts 12/14/2023 11:41 EDT Discharge Level of Care at Discharge Homehealth/VNA [facility]charge [facility] Discharge Transportation Arranged private car Discharge Arranged Transport Date/Time 12/14/2023 13:00 Mode of Transportation Arranged Other [facility] Categories #1 Half-Way, Speech Therapy Service Comments #1 arlet [facility] will call you within 1-2 days of discharge to set up appointments! Name of Person Notified of Transfer patient Name of Receiving Clinician/Provider allscripts Rehabilitation Discharge : Rehab Discharge Index 12/13/2023 12:55 EDT Distance pt will ambulate 200 ' x 2 Full chart review completed Yes Hospital course Adm to spoke 4 Other findings Pt independent with self care; during ambulation note very minor and intermittent ataxia with steppage to the R - self corrected without LOB Plan of care PT Gait training, Balance training 12/13/2023 11:21 EDT Comments on treatment indicated Comments on treatment indicated Full chart review completed Yes Hospital course Hospital course 12/13/2023 11:20 EDT Full chart review completed Not Done: incorrect order type (Not Done) * Landy Almanza RN: MODIFY, SIGN, VERIFY, PERFORM Event Display: Progress Note Hospital Authored Date: [id number] Patient: ROSA SIERRA Age: 78 years Sex: Male : 1945 Associated Diagnoses: None Author: Landy Almanza RN Findings Problem Related to Alteration in Respiratory Function (new) : Alteration in Respiratory Function/new 12/15/2023 2:00 EDT Alteration in Resp Status Related to Pneumonia Goals & Outcomes, Respiratory Pt will maintain/resume baseline physical assessment, Pt will notdevelop complications r/t mechanical ventilation, Pt will maintain adequate nutritional intake, Pt will maintain/resume normal fluid/electrolyte balance, Pt will not develop complications r/t immobility Interventions, Respiratory Assess/monitor tolerance to IV infusions; verify rate/dose, Assess for and report S&S of respiratory distress, Position for comfort & optimal oxygenation, Monitor sputum color & consistency. Report changes to MD, Teach/encourage use of incentive spirometer Goals/Interventions, Respiratory Yes Respiratory, Problem Start 12/13/2023 11:54 Reviewed Plan with, Respiratory Patient Patient Progression, Respiratory Patient progressing according to plan . Nursing Data Respiratory/Pulmonary Data. : Respiratory/Pulmonary Data. 12/14/2023 19:43 EDT Respiratory Symptoms None Respiratory effort Unlabored Accessory Muscles use No Cough No cough Left Upper Lobe Breath Sounds Clear, Diminished Right Upper Lobe Breath Sounds Clear, Diminished Right Middle Lobe Breath Sounds Clear, Diminished Left Lower Lobe Breath Sounds Clear, Diminished Right Lower Lobe Breath Sounds Clear, Diminished Respiratory distress None Respiratory Treatment(s) Incentive spirometry Respiratory WNL except . Vital Signs : VITAL SIGNS SECTION 12/15/2023 0:35 EDT Temperature 99.5 DegF Temperature Route Oral Pulse Rate 78 bpm Respiratory Rate 16 br/min Systolic Blood Pressure 129 mm Hg Diastolic Blood Pressure 83 mm Hg Blood pressure sites Arm, right Mean Arterial Pressure 98 mm Hg Pulse Pressure 46 mm Hg Oxygen Saturation 96 % Mode of Delivery (Oxygen) Room air . Narrative/Incidental Report received from previous RN Ivory at approximately 1900. Patient is A+Ox2, to self and place. On tele in sinus arrhythmia, HR 50-70's overnight. Lungs are diminished, but clear, denies sob or cough, saturating 94-96%. Patient had a low grade fever overnight, Tylenol offered, and patient refused. Ambulating as a 1 assist. Antibiotics given per orders. Safety maintained, bed in lowest, locked p osition. Call sainz within reach, often forgets to ring. Frequent rounding to ensure needs are me. Discharge Information Case Management Discharge Plan : Case Management Discharge Plan Data 12/14/2023 11:41 EDT Discharge Level of Care at Discharge Homehealth/VNA Discharge [facility]Hospice/Home Care [facility] [place] Discharge Transportation Arranged private car Discharge Arranged Transport Date/Time 12/14/2023 13:00 Mode of Transportation Arranged Other Name of Agency #1 [facility] Service Categories #1 Half-Way, Speech Therapy Service Comments #1 [facility] will call you within 1-2 days of discharge to set up appointments! Name of Person Notified of Transfer patient Name of Receiving Clinician/Provider allscripts Rehabilitation Discharge : Rehab Discharge Index 12/13/2023 12:55 EDT Distance pt will ambulate 200 ' x 2 Full chart review completed Yes Hospital course Adm to spoke 4 Other findings Pt independent with self care; during ambulation note very minor and intermittent ataxia with steppage to the R - self corrected without LOB Plan of care PT Gait training, Balance training 12/13/2023 11:21 EDT Comments on treatment indicated Comments on treatment indicated Full chart review completed Yes Hospital course Hospital course 12/13/2023 11:20 EDT Full chart review completed Not Done: incorrect order type (Not Done) * Ivory Renae: PERFORM, SIGN, VERIFY Event Display: Progress Note Hospital Authored Date: [id number] Patient: ROSA SIERRA Age: 78 years Sex: Male : 1945 Associated Diagnoses: None Author: Ivory Renae Findings Problem Related to Alteration in Respiratory Function (new) : Alteration in Respiratory Function/new 12/14/2023 8:00 EDT Alteration in Resp Status Related to Pneumonia Goals & Outcomes, Respiratory Pt will maintain/resume baseline physical assessment, Pt will notdevelop complications r/t mechanical ventilation, Pt will maintain adequate nutritional intake, Pt will maintain/resume normal fluid/electrolyte balance, Pt will not develop complications r/t immobility Interventions, Respiratory Assess for and report S&S of respiratory distress, Position for comfort & optimal oxygenation, Monitor sputum color & consistency. Report changes to MD, Teach/encourage use of incentive spirometer Goals/Interventions, Respiratory Yes Respiratory, Problem Start 12/13/2023 11:54 Reviewed Plan with, Respiratory Patient Patient Progression, Respiratory Patient progressing according to plan . Nursing Data Respiratory/Pulmonary Data. : Respiratory/Pulmonary Data. 12/14/2023 9:15 EDT Respiratory Symptoms None Respiratory effort Unlabored Left Upper Lobe Breath Sounds Clear, Diminished Right Upper Lobe Breath Sounds Clear, Diminished Right Middle Lobe Breath Sounds Clear, Diminished Left Lower Lobe Breath Sounds Clear, Diminished Right Lower Lobe Breath Sounds Clear, Diminished Respiratory distress None Respiratory WNL except . Vital Signs : VITAL SIGNS SECTION 12/14/2023 15:40 EDT Temperature 99.5 DegF Temperature Route Oral Pulse Rate 117 bpm H Respiratory Rate 18 br/min Systolic Blood Pressure 123 mm Hg Diastolic Blood Pressure 62 mm Hg Blood pressure sites Arm, right Mean Arterial Pressure 82 mm Hg Pulse Pressure 61 mm Hg Oxygen Saturation 94 % Mode of Delivery (Oxygen) Nasal cannula . Evaluation Report received from Roshni RN Patient is alert to self and place. VSS. No complaints of pain or discomfort Sinus arrythmia on tele. Tele later D/C'd by . Lungs are clear but diminished. No cough or SOB Patient is a standby assist to the bathroom. Referral was placed for STR. Plan is to discharge tomorrow. Safety measures in place. Bed locked and in the lowest position. Call sainz within reach.. Discharge Information Case Management Discharge Plan : Case Management Discharge Plan Data 12/14/2023 11:41 EDT Discharge Level of Care at Discharge Homehealth/VNA Discharge VNA[facility]Hospice/Home Care [facility] [place] Discharge Transportation Arranged private car Discharge Arranged Transport Date/Time 12/14/2023 13:00 Mode of Transportation Arranged Other Name of Agency #1 [facility] Service Categories #1 Half-Way, Speech Therapy Service Comments #1 [facility] will call you within 1-2 days of discharge to set up appointments! Name of Person Notified of Transfer patient Name of Receiving Clinician/Provider [employer]scripts Rehabilitation Discharge : Rehab Discharge Index 12/13/2023 12:55 EDT Distance pt will ambulate 200 ' x 2 Full chart review completed Yes Hospital course Adm to spoke 4 Other findings Pt independent with self care; during ambulation note very minor and intermittent ataxia with steppage to the R - self corrected without LOB Plan of care PT Gait training, Balance training 12/13/2023 11:21 EDT Comments on treatment indicated Comments on treatment indicated Full chart review completed Yes Hospital course Hospital course 12/13/2023 11:20 EDT Full chart review completed Not Done: incorrect order type (Not Done) Note * Ivory Renae: PERFORM Event Display: Discharge/Transfer Note Hospital Authored Date: [id number] Nursing Discharge Note Entered On: 12/15/2023 16:30 EDT Performed On: 12/15/2023 16:29 EDT by Ivory Renae Nursing Discharge Note 2 Discharge Time : 12/15/2023 16:25 EDT Discharge Level of Care at Discharge : Homehealth/VNA Discharge VNA/Hospice/Home Care(v001) : [facility] Patient Left Unit Via : Wheelchair Patient Accompanied Off Unit with : Significant other DC Instructions Provided & Signed by Pt : Yes Patient Understands D/C Instructions : Yes Patient Instructions Discharge Signed : Yes Did Pt have Specialty Bed or Wound Vac : No Ivory Renae - 12/15/2023 16:29 EDT * Juanita WOODY, Caprice Shea: PERFORM, MODIFY Event Display: Discharge/Transfer Note Hospital Authored Date: [id number] Patient: ??RIGO, ROSA ? Age:??78 Years?Sex:??Male?:??1945?? Patient Information Discharge Location: [facility] Primary Care Physician: Alexx Stoner MD Admit Date/Time: 12/13/23 05:24 Discharge Disposition Discharge Disposition: Home: No Services Discharge Diagnosis Pneumonia (J18.9) Dementia (F03.90) Weakness (R53.1) ?? _ Discharge Medications Azithromycin (azithromycin 500 mg oral tablet)?1?tab(s)?500?Milligram?By Mouth?Daily?for 3?Days Cefdinir (cefdinir 300 mg oral capsule)?1?capsule?300?Milligram?By Mouth?Every 12hours?for 5?Days Fluoxetine (FLUoxetine 20 mg oral tablet)?2?tab(s)?40?Milligram?By Mouth?Daily ? Vaccinations and Immunoprophylaxis influenza virus vaccine, inactivated: 0.7 mL (07/10/23 10:55:00) influenza virus vaccine, inactivated: 0.7 mL (07/07/22 09:51:00) influenza virus vaccine, inactivated: 0.5 mL (07/20/19 10:30:00) pneumococcal 13-valent vaccine: 0.5 mL (07/20/19 10:30:00) SARS-CoV-2 (COVID-19) mRNA BNT-162b2 vac: 0.5 Unknown (01/10/21 08:00:00) SARS-CoV-2 (COVID-19) mRNA BNT-162b2 vac: 0.5 Unknown (12/20/20 08:00:00) ?? Medications Started Azithromycin (azithromycin 500 mg oral tablet)?1?tab(s)?500?Milligram?By Mouth?Daily?for 3?Days Cefdinir (cefdinir 300 mg oral capsule)?1?capsule?300?Milligram?By Mouth?Every 12hours?for 5?Days Allergies Allergies ?(Active and Proposed Allergies Only) NKA? (Severity: Unknown severity, Onset: Unknown) ? PCP Follow-Up/Heads-Up Blood culture final results, negative to date Hospital Course 78-year-old male with a history of Alzheimer's dementia, anxiety/depression presented on 12/12 to the emergency room with reports of fevers, cough and general malaise. He was found to have right middle lobe consolidation.??During his hospitalization patient was treated??for the following conditions: 1.?Pneumonia,??patient did not meet criteria for sepsis, had no hypoxia. Had??leukocytosis yet no fever??documented in the hospital.?Leukocytosis improved to normal??after initiation of IV ceftriaxone and azithromycin.?? Blood cultures are negative to date,??PCP will inform of final results. ??Patient was switched to??oral antibiotics??and continues to remain stable??and improved he feels at baseline.?He had??influenza A/B/COVID-19/RSV PCR negative.??Tolerated diet well.??Proceeded with PT recommending discharge home with services.??Patient is clinically and hemodynamically stable appropriate for discharge home with services.??He will have a follow-up with PCP??in 1 week and we recommend that the patient has a repeat??pulmonary imaging such as?CT chest to evaluate for underlying malignancy, 2 weeks??after antibiotics are completed. PCP to order the study. 2.??Anxiety/depression, not an acute issue,??continue home medications. HCP/partner Olga Hanson called and informed the plan of care. ?? Objective Measurements?? Height: 180 cm (12/15/23) Weight: 55.6 kg (12/13/23) Dry Weight: 55.6 kg (12/13/23) Body Mass Index:??17.16 kg/m2??Low (12/13/23) ? Vital Signs?? Temperature: 98.1 DegF (12/15/23 07:12:00) Temperature Route: Oral (12/15/23 07:12:00) Pulse Rate: 69 bpm (12/15/23 07:12:00) Respiratory Rate: 16 br/min (12/15/23 07:12:00) Systolic Blood Pressure: 118 mm Hg (12/15/23 07:12:00) Diastolic Blood Pressure: 70 mm Hg (12/15/23 07:12:00) Blood pressure sites: Arm, right (12/15/23 07:12:00) Mean Arterial Pressure: 86 mm Hg (12/15/23 07:12:00) Pulse Pressure: 48 mm Hg (12/15/23 07:12:00) Oxygen Saturation: 94 % (12/15/23 07:12:00) Mode of Delivery (Oxygen): Room air (12/15/23 07:12:00) Early Warning Score: 2 (12/15/23 08:50:51) ? Mobility & Ambulation Level Mobility & Ambulation Level Activity Assistance: Standby assist (12/14/23) Activity Status ADL: Ambulating in peres, Ambulating in room, Back to bed (12/14/23) Ambulatory devices needed: None (12/13/23) ?? . Physical Exam General:??Alert, in no acute cardiopulmonary distress. Mental Status:??Oriented to person, place and time. Normal affect. Head:??Normocephalic. Eyes:??Pupils are equal, round and reactive to light. Extraocular muscles intact. Ear, Nose and Throat:??Oropharynx clear, mucous membranes moist. Ears and nose without masses, lesions or deformities.??Trachea midline. Neck:??Supple, Full range of motion. Respiratory:??Clear to auscultation and percussion. No wheezing, rales or rhonchi. Cardiovascular:??Heart sounds normal. No thrills. Regular rate and rhythm, no murmurs, rubs or gallops. ??Lower extremity without edema bilaterally. Gastrointestinal:??Abdomen soft, non-tender, non-distended. Normal bowel sounds. No pulsatile mass.No hepatosplenomegaly. Genitourinary:??No costovertebral angle tenderness. Neurologic:??Cranial nerves II-XII grossly intact. No focal neurological deficits.??Moves all extremities spontaneously. Sensation intact bilaterally. Skin:??No rashes or lesions. No petechiae or purpura. No edema. Musculoskeletal:??No cyanosis or clubbing. No gross deformities. Normal range of motion. ?? Pending Results Sputum Culture w/ Gram Smear ordered on 12/13/2023 Follow-Up Appointments Added Follow Up ?Time Frame ?Comments Alexx Stoner MD?3-5 day: call to discuss follow up visit?They will call you with a follow up appointment Patient Instructions You are hospitalized for pneumonia and your symptoms have improved. ??Please finish up the antibiotic therapy prescribed to you on discharge.?? He will be discharged home with services.?? Your primary care provider??should order in [address] chest??to ensure resolution/resolving pneumonia and no other??abnormalities in the lungs.?? Should you have recurrence of fever, chills, chest pain, shortness of breath, or any other significant concerns please seek immediate medical care. Post Discharge Care Diet: ??Regular Diet ?? Discharge ?12/15/23 12:27:00 EDT Home Health Face to Face *Denotes mandatory wilhelm ?? *I certify that this patient is under my care and that I or an allowed non- physician working with me had a face to face encounter with the patient on this date:??12/15/2023 12:28 ?? *The encounter with the patient was in whole, or in part, for the following medical condition, which is the primary diagnosis(es) for home health care:??Pneumonia (J18.9) Dementia (F03.90) Weakness (R53.1) ? *Select the indications for the discipline/s that are being arranged for this patient. Nursing (select all that apply): [_] None [x] Medication management (reconciliation, teaching)?? [x] Chronic disease management?? [_] Wound care and treatment?? [_] Home safety evaluation [_] Administer SQ/IM/IV medications?? [_] Cath care?? [_] Drain care?? [_] Trach or GT care?? Other _ Occupation Therapy (select all that apply): [_] None [_] ADL Management [_] Fall prevention training [_] Energy conservation [_] Cognitive training Other _ Physical Therapy (select all that apply): [_] None [_] Functional mobility training [_] Home exercise program to strengthen [_] Increase ROM?? [_] Falls prevention training [_] Home maintenance program for chronic disease Other _ Speech Therapy (select all that apply): [_] None [_] Swallow evaluation and training [_] Speech and language training [_] Cognitive training to process, organize, and/or recall information Other _ ? *Homebound due to (select all that apply): [_] Inability to leave home without assistance/supervision [_] Inability to ambulate without assistance [_] Pain [x] Decreased strength and endurance [_] Unsteady gait [_] Severe SOB and fatigue [_] Impaired transfers [_] Inability to negotiate stairs [_] Limited weight bearing [_] Mental status change? *Physician Signature:?? Caprice Grant MD ?? *By signing this, I certify that I have personally evaluated the patient and agree with the findings and recommendations as documented above. ? F Results Discharge Labs BACTERIOLOGY Blood Culture Results Preliminary report ()?? 12/13/2023 02:42 Blood Culture Specimen Source BLOOD ()?? 12/13/2023 02:42 Blood Culture Isolate 1 Comment ()?? 12/13/2023 02:42 Blood Cult 2 Results Preliminary report ()?? 12/13/2023 02:47 Blood Culture 2 Specimen Source BLOOD ()?? 12/13/2023 02:47 Blood Culture 2 Isolate 1 Comment ()?? 12/13/2023 02:47 ?? BLOOD COUNT & DIFF WBC 10.3 k/mm3 ()?? 12/15/2023 05:04 RBC 3.63 m/mm3 (Low)?? 12/15/2023 05:04 Hgb 11.6 Gm/dL (Low)?? 12/15/2023 05:04 Hct 34.6 % (Low)?? 12/15/2023 05:04 MCV 95.3 femtoliters (High)?? 12/15/2023 05:04 MCH 32.0 pg ()?? 12/15/2023 05:04 MCHC 33.5 g/dL ()?? 12/15/2023 05:04 Platelet Count 275 k/mm3 ()?? 12/15/2023 05:04 RDW-SD 47.4 femtoliters (High)?? 12/15/2023 05:04 MPV 11.3 femtoliters ()?? 12/15/2023 05:04 Nucleated RBC (Automated) 0.0 #/100 WBC'S ()?? 12/15/2023 05:04 Abs. NRBC 0.0 k/mm3 ()?? 12/15/2023 05:04 Abs. Neut 8.2 k/mm3 (High)?? 12/15/2023 05:04 Abs. Lymph 0.9 k/mm3 ()?? 12/15/2023 05:04 Abs. [place] 1.1 k/mm3 ()?? 12/15/2023 05:04 Abs. Eo 0.1 k/mm3 ()?? 12/15/2023 05:04 Abs. Baso 0.0 k/mm3 ()?? 12/15/2023 05:04 Neut % 78.8 % (High)?? 12/15/2023 05:04 Lymph % 9.1 % (Low)?? 12/15/2023 05:04 [place] % 10.7 % (High)?? 12/15/2023 05:04 Eos % 0.7 % ()?? 12/15/2023 05:04 Baso % 0.3 % ()?? 12/15/2023 05:04 Imm Gran 0.4 % ()?? 12/15/2023 05:04 Abs. Imm Gran 0.0 k/mm3 ()?? 12/15/2023 05:04 ?? CARDIAC Nt-Probnp 322 pg/mL ()?? 12/13/2023 02:42 High Sensitivity Troponin (HSTnT) 12 ng/L ()?? 12/13/2023 02:42 ?? CHEM GENERAL Sodium 134 mmol/L ()?? 12/13/2023 02:42 Potassium 4.2 mmol/L ()?? 12/13/2023 02:42 Chloride 99 mmol/L ()?? 12/13/2023 02:42 Bicarbonate Level 23 mmol/L ()?? 12/13/2023 02:42 Anion Gap 12 ()?? 12/13/2023 02:42 Glucose Level 124 mg/dL (High)?? 12/13/2023 02:42 BUN 25 mg/dL (High)?? 12/13/2023 02:42 Creatinine-Blood 1.0 mg/dL ()?? 12/13/2023 02:42 Estimated GFR Creatinine 72 ML/MIN/1.73 M2 ()?? 12/13/2023 02:42 Calcium 8.3 mg/dL (Low)?? 12/13/2023 02:42 Protein, Total 7.1 Gm/dL ()?? 12/13/2023 02:42 Albumin 3.5 Gm/dL ()?? 12/13/2023 02:42 AG Ratio 1.0 ()?? 12/13/2023 02:42 Alkaline Phosphatase 86 units/L ()?? 12/13/2023 02:42 AST (SGOT) 47 units/L (High)?? 12/13/2023 02:42 ALT (SGPT) 56 units/L (High)?? 12/13/2023 02:42 Bilirubin, Total 1.2 mg/dL ()?? 12/13/2023 02:42 Lactate 0.7 mmol/L ()?? 12/13/2023 02:42 ?? FLUID STUDIES Body Fld Cult Not indicated. ()?? 12/13/2023 05:25 Note Bact Ag Cult Comment ()?? 12/13/2023 05:25 Spec Source S pneumo Urine ()?? 12/13/2023 05:25 Org ID S pneumo Not indicated. ()?? 12/13/2023 05:25 ?? HEME OTHER Hold Blue Top SPECIMEN DISCARDED AFTER 4 HOURS. ()?? 12/13/2023 02:42 ? MISC. CHEMISTRY Hold Green Top SPECIMEN DISCARDED AFTER 1 WEEK ()?? 12/15/2023 05:04 Procalcitonin 0.18 ng/mL ()?? 12/13/2023 02:42 Hold Gel Top SPECIMEN DISCARDED AFTER 1 WEEK ()?? 12/13/2023 02:42 ? SEROLOGY INF DISEASE S. Pneumococcus Urinary Ag NEGATIVE ()?? 12/13/2023 05:25 ? UA/URINALYSIS Appear/Color, Urine YELLOW ()?? 12/13/2023 03:48 Clarity CLEAR (N)?? 12/13/2023 03:48 Specific [place], Urine >1.030 (High)?? 12/13/2023 03:48 pH, Urine 6.0 ()?? 12/13/2023 03:48 Albumin, Urine 2+ (Abnormal)?? 12/13/2023 03:48 Glucose, Urine NEGATIVE (N)?? 12/13/2023 03:48 Ketones, Urine 1+ (Abnormal)?? 12/13/2023 03:48 Bilirubin, Urine NEGATIVE (N)?? 12/13/2023 03:48 Hemoglobin, Urine TRACE (Abnormal)?? 12/13/2023 03:48 Nitrite, Urine NEGATIVE (N)?? 12/13/2023 03:48 Leukocyte, Urine NEGATIVE (N)?? 12/13/2023 03:48 Urobilinogen 4 mg/dL (Abnormal)?? 12/13/2023 03:48 WBC's, Urine NONE SEEN /HPF ()?? 12/13/2023 03:48 RBC's, Urine 5 /HPF (High)?? 12/13/2023 03:48 Mucus SLIGHT /LPF ()?? 12/13/2023 03:48 Hold Urine Culture Testing available 48 hours from time of collection. ()?? 12/13/2023 03:48 ?? URINE OTHER Est Creatinine Clearance 47.88 mL/min ()?? 12/13/2023 06:25 ? VIROLOGY Influenza A PCR NEGATIVE ()?? 12/13/2023 02:00 Influenza B PCR NEGATIVE ()?? 12/13/2023 02:00 RSV PCR NEGATIVE ()?? 12/13/2023 02:00 COVID-19 PCR Specimen Source NASAL ()?? 12/13/2023 02:00 COVID-19 PCR Result NEGATIVE ()?? 12/13/2023 02:00 ? Microbiology ?? Blood Culture?? Completed?? Source: Blood Body Site: ?? Collected Dt/Tm: 12/13/2023 02:42 Last Updated Dt/Tm: 12/14/2023 19:06 Blood Culture #2?? Completed?? Source: Blood Body Site: ?? Collected Dt/Tm: 12/13/2023 02:47 Last Updated Dt/Tm: 12/14/2023 20:09 COVID-19, RSV, and Flu A/B, Rapid PCR?? Completed?? Source: Nasal Body Site: Nose Collected Dt/Tm: 12/13/2023 02:00 Last Updated Dt/Tm: 12/13/2023 03:03 Blood Culture Result?? Completed?? Source: Blood Body Site: ?? Collected Dt/Tm: 12/13/2023 02:42 Last Updated Dt/Tm: 12/14/2023 19:06 Blood Culture 2 Results?? Completed?? Source: Blood Body Site: ?? Collected Dt/Tm: 12/13/2023 02:47 Last Updated Dt/Tm: 12/14/2023 20:09 ? Imaging(s) ?Chest 2 Views Frontal and Lat ?? 12/13/2023 04:13??by Delta Monk MD ?Right upper lobe opacity could represent pneumonia in the appropriate clinical setting.Differential diagnosis also includes malignancy. Follow-up with nonemergent chest CT with intravenous contrast should be considered based on clinical suspicion for malignancy. ? 40??minutes spent on discharge * Juni Melchor RN: PERFORM, SIGN, VERIFY Event Display: Case Management Discharge Plan Authored Date: [id number] Patient: ROSA SIERRA Age: 78 years Sex: Male : 1945 Associated Diagnoses: None Author: Juni Melchor RN Discharge Plan Case Management Discharge Plan : Case Management Discharge Plan Data 12/15/2023 13:26 EDT Discharge Level of Care at Discharge [facility] Clinical Research Director #1 [employer] Service Categories #1 Physical Therapy, Half-Way Service Comments #1 [facility] will call to arrange a time Name of Person Notified of Transfer pt Name of Receiving Clinician/Provider allscripts * Ivory Renae: PERFORM, MODIFY Event Display: Patient Education/Instruction Authored Date: Inpatient Adult Discharge Instructions. 53 [address] [address] Name: ROSA SIERRA : 1945?? Visit: 12/13/2023 05:24?? Current Date: 12/15/2023 12:36 ?? Account: [id number]?? Inpatient Adult Discharge Instructions We would like to thank you for allowing us to assist you with your healthcare needs. The following includes patient education materials and information regarding your injury/illness. Our entire staffstrives to provide an excellent experience for our patients and their families. PLEASE ENSURE YOU FOLLOW-UP PER THE INSTRUCTIONS BELOW! ?? YOUR OPINION IS IMPORTANT TO US! Please complete the survey you may receive by mail or email. Your feedback will be used to make improvements to the healthcare experiences of our patients and their families. Surveys are administered by [employer] ?? If further treatment with your primary care physician or another doctor is recommended, it is important for you to keep the appointment. Call your primary care physician or return to the Emergency Department immediately if your condition worsens, fails to improve, or new symptoms develop. If you need to find a doctor, you can call [facility] for a referral at [phone] or toll free at [phone] or log in to [email or web address] ?? [facility], in keeping with [facility] guidance, no longer requires face masks for staff, patientsor visitors in most situations. Similiar to time spent indoors at other locations, there is the chance that you were exposed to repiratory viruses during your time with us (such as flu or COVID-19). If you develop symptoms concerning for a viral respiratory infection, please seek testing (and treatment if indicated) from your medical provider or home test kit. ?? You can view and manage your care through the patient portal or by using a health care lopez of your choosing. [facility] [place] is a website that allows you to securely view your medical information including your hospital discharge summary, office visit summaries, medications and follow-up visits. You can also request appointments, renew medications, and request access to your medical information using a health care lopez of your choosing, or just ask a question. You can enroll at [email or web address] or register during your next office visit. You have been discharged from [facility], Patient Care Unit: SPK4??. If you have any questions regarding these instructions, including results of studies pending, afteryou leave, please call us and we will be happy to assist you 13/04. [facility] Your Care Team Attending Physician Caprice Grant MD?? Consulting Providers Caprice Grant MD?? Discharging Providers Caprice Grant MD Reason for Your Visit generalized weakness, cough.. fell earlier today.. baseline dementia?? Tests Performed Below is a partial list of the tests performed during your hospitalization. You may have had other tests and procedures not included in this list. Please discuss all test results with your provider. Blood Culture Blood Culture #2 Blood Culture 2 Results Blood Culture Result CBC w/ Differential Comprehensive Metabolic Panel COVID-19, RSV, and Flu A/B, Rapid PCR High??Sensitivity??Troponin T HOLD BLUE TUBE HOLD GEL TUBE HOLD GREEN TUBE Lactate Level ProBNP PROCALCITONIN, SERUM Strep Pneumoniae Urinary Ag Urinalysis w/hold for Urine Culture URINE MICROSCOPIC XR Chest 2 Views Frontal and Lat Sputum Culture w/ Gram Smear?? Primary Care Provider Alexx Stoner MD? Advance Directive Health Care Proxy on File Yes - Health Care Proxy Yes - MOLST Discharge Vitals Temperature: 98.1 DegF Height: 180 cm Pulse Rate: 69 bpm Weight: 55.6 kg Respiratory Rate: 16 br/min Body Mass Index:??17.16 kg/m2??Low Systolic Blood Pressure: 118 mm Hg Body surface area: 1.67 Diastolic Blood Pressure: 70 mm Hg ?? Oxygen Saturation: 94 % ?? Studies Pending All studies ordered during this hospital stay have been completed unless listed below. Please discuss all pending results with your provider listed above in these instructions. ?? Sputum Culture w/ Gram Smear?? What to do next Instructions From Your Doctor You are hospitalized for pneumonia and your symptoms have improved. ??Please finish up the antibiotic therapy prescribed to you on discharge.?? He will be discharged home with services.?? Your primary care provider??should order in [address] chest??to ensure resolution/resolving pneumonia and no other??abnormalities in the lungs.?? Should you have recurrence of fever, chills, chest pain, shortness of breath, or any other significant concerns please seek immediate medical care. ?? Orders??:Regular Diet? 12/15/23 12:27:00 EDT?? You Need to Schedule the Following Appointments Follow Up with??Alexx Stoner MD When:??Within 3-5 day: call to discuss follow up visit Why: They will call you with a follow up appointment Where: [address] [place] [id number]- Discharge Medications ROSA SIERRA :1945 Visit Date:12/13/2023 Medications: Please continue your medications until treatment is completed or stopped by your provider. Medications not listed below should be discontinued. Discuss any questions related to medications with your provider. What How Much When Instructions Next Dose New Azithromycin (azithromycin 500 mg oral tablet) 1 tab(s) Oral Daily Duration: 3 Days [id number] 12/15 (tomorrow) in the morning New Cefdinir (cefdinir 300 mg oral capsule) 1 capsule Oral Every 12 hours Duration: 5 Days [id number] 12/14 (today) at bedtime Unchanged Fluoxetine (FLUoxetine 20 mg oral tablet) 2 tab(s) Oral Daily 12/15 (tomorrow) in the morning Unchanged Miscellaneous Rx (Brain and Memory - [facility]) Unchanged Miscellaneous Rx (Gum Guardian - [facility]) Unchanged Miscellaneous Rx (Rapid Immune Boost - [facility]) Unchanged Miscellaneous Rx (Virattack - [facility]) Unchanged Miscellaneous Rx (Warming Circulation - [facility]) Pharmacy Information [id number]: [address] [place], [place] [id number] [phone] ?? What When Comments Stop Taking Ibuprofen Prescription Given During Visit Azithromycin (azithromycin 500 mg oral tablet) - 1 tablet = 500 mg, By Mouth, Daily, # 3 tablet, 0 Refills, [id number], [address] [place] [phone]?? Cefdinir (cefdinir 300 mg oral capsule) - 1 capsule = 300 mg, By Mouth, Every 12 hours, # 10 capsule, 0 Refills, [id number], [address] [place] [address] [phone]?? Laboratory Results Below is a partial list of the most recent Laboratory test results done prior to this discharge. You may have had other tests and procedures not included in this list. Please discuss all test resultswith your provider. Est Creatinine Clearance - 47.88 mL/min (12/13/2023) Blood Culture (12/13/2023) ???Blood Culture Results - Preliminary report???Blood Culture Specimen Source - BLOOD Blood Culture #2 (12/13/2023) ???Blood Cult 2 Results - Preliminary report???Blood Culture 2 Specimen Source - BLOOD Blood Culture 2 Results (12/13/2023) ???Blood Culture 2 Isolate 1 - Comment Blood Culture Result (12/13/2023) ???Blood Culture Isolate 1 - Comment CBC w/ Differential (12/15/2023) ???WBC - 10.3 k/mm3???RBC - 3.63 m/mm3???Hgb - 11.6 Gm/dL???Hct - 34.6 %???MCV - 95.3 femtoliters???MCH - 32.0 pg???MCHC - 33.5 g/dL???Platelet Count - 275 k/mm3???RDW-SD - 47.4 femtoliters???MPV - 11.3 femtoliters???Nucleated RBC (Automated) - 0.0 #/100 WBC'S???Abs. NRBC - 0.0 k/mm3???Abs. Neut - 8.2 k/mm3???Abs. Lymph - 0.9 k/mm3???Abs. [place] - 1.1 k/mm3???Abs. Eo - 0.1 k/mm3???Abs. Baso - 0.0 k/mm3???Neut % - 78.8 %???Lymph % - 9.1 %???[place] % - 10.7 %???Eos % - 0.7 %???Baso % - 0.3 %???Imm Gran - 0.4 %???Abs. Imm Gran - 0.0 k/mm3 Comprehensive Metabolic Panel (12/13/2023) ???Sodium - 134 mmol/L???Potassium - 4.2 mmol/L???Chloride - 99 mmol/L???Bicarbonate Level - 23 mmol/L???Anion Gap - 12???Glucose Level - 124 mg/dL???BUN - 25 mg/dL???Creatinine-Blood - 1.0 mg/dL???Estimated GFR Creatinine - 72 ML/MIN/1.73 M2???Calcium - 8.3 mg/dL???Protein, Total - 7.1 Gm/dL???Albu min - 3.5 Gm/dL???AG Ratio - 1.0???Alkaline Phosphatase - 86 units/L???AST (SGOT) - 47 units/L???ALT (SGPT) - 56 units/L???Bilirubin, Total - 1.2 mg/dL COVID-19, RSV, and Flu A/B, Rapid PCR (12/13/2023) ???Influenza A PCR - NEGATIVE???Influenza B PCR - NEGATIVE???RSV PCR - NEGATIVE???COVID-19 PCR Specimen Source - NASAL???COVID-19 PCR Result - NEGATIVE High??Sensitivity??Troponin T (12/13/2023) ???High Sensitivity Troponin (HSTnT) - 12 ng/L HOLD BLUE TUBE (12/13/2023) ???Hold Blue Top - SPECIMEN DISCARDED AFTER 4 HOURS. HOLD GEL TUBE (12/13/2023) ???Hold Gel Top - SPECIMEN DISCARDED AFTER 1 WEEK HOLD GREEN TUBE (12/15/2023) ???Hold Green Top - SPECIMEN DISCARDED AFTER 1 WEEK Lactate Level (12/13/2023) ???Lactate - 0.7 mmol/L ProBNP (12/13/2023) ???Nt-Probnp - 322 pg/mL PROCALCITONIN, SERUM (12/13/2023) ???Procalcitonin - 0.18 ng/mL Strep Pneumoniae Urinary Ag (12/13/2023) ???S. Pneumococcus Urinary Ag - NEGATIVE???Body Fld Cult - Not indicated.???Note Bact Ag Cult - Comment???Spec Source S pneumo - Urine???Org ID S pneumo - Not indicated. Urinalysis w/hold for Urine Culture (12/13/2023) ? ?Appear/Color, Urine - YELLOW? ?Clarity - CLEAR? ?Specific [place], Urine - >1.030? ?pH, Urine- 6.0???Albumin, Urine - 2+???Glucose, Urine - NEGATIVE???Ketones, Urine - 1+???Bilirubin, Urine - NEGATIVE???Hemoglobin, Urine - TRACE???Nitrite, Urine - NEGATIVE???Leukocyte, Urine - NEGATIVE???Urobilinogen - 4 mg/dL???Hold Urine Culture - Testing available 48 hours from time of collection. URINE MICROSCOPIC (12/13/2023) ???WBC's, Urine - NONE SEEN???RBC's, Urine - 5 /HPF???Mucus - SLIGHT Allergies (NKA means No Known Allergies) NKA Problems Active Problems??(9) Alzheimer's dementia?? Alzheimer's dementia with behavioral disturbance?? Anxiety with depression?? B12 deficiency?? [facility] Senior Account Clerk Tamara Davalos [phone]?? Femoral hernia of left side?? Phlebitis?? Underweight?? Varicose veins of legs?? Education Materials Below is the list of Educational Leaflet Providered with your Discharge Instructions. [employer]ite Patient Education - Azithromycin Oral Tablet?? [employer] Patient Education - Cefdinir Oral Capsule?? Valuables and Belongings I fully understand and agree that [facility] accepts no responsibility for all my personal property including clothing, toilet articles, radios, jewelry, dentures, hearing aids, rings, money, or any other property that is in my possession or is brought to me after admission. I understand certain valuables may be placed in a hospital safe for a short period of time. I understand that the hospital is not liable for loss or damage due to accident, fire, or other natural occurrence while said property is in the safe. I accept full responsibility for any personal property that I keep with me, and will not hold the hospital responsible in case of loss or disappearance. I acknowledge that i have been encouraged to send valuables and belongings home. ?? Review of Valuable and Belonging List: With patient Date for Pt to Sign Valuables/Belongings: 12/13/23 06:26:00 ?? Other Discharge Information ? Case Management Discharge Plan?? Discharge Plan?? Discharge Agency Information?? Discharge Level of Care at Discharge: Homehealth/VNA Name of Agency #1: [facility] Discharge Transportation Arranged: private car Service Categories #1: Half-Way, Speech Therapy Mode of Transportation Arranged: Other Service Comments #1: [facility] will call you within 1-2 days of discharge to set up appointments! Discharge Arranged Transport Date/Time: 12/14/23 13:00:00 Name of Person Notified of Transfer: patient Discharge V[facility]/Hospice/Home Care: [facility] Name of Receiving Clinician/Provider: [employer]scripts ?? Pulmonary Rehab Status?? Pulmonary Rehab Discharge Status?? Respiratory Rate: 16 br/min ? Common Emergency Awareness Tips IS IT A STROKE? Act FAST and Check for these signs: FACE Does the face look uneven? ARM Does one arm drift down? SPEECH Does their speech sound strange? TIME Call at any sign of stroke ?? Heart Attack Signs Chest discomfort: Most heart attacks involve discomfort in the center of the chest and lasts more than a few minutes, or goes away and comes back. It can feel like uncomfortable pressure, squeezing, fullness or pain. Discomfort in upper body: Symptoms can include pain or discomfort in one or both arms, back, neck, jaw or stomach. Shortness of breath: With or without discomfort. Other signs: Breaking out in a cold sweat, nausea, or lightheaded. Remember, MINUTES DO MATTER. If you experience any of these heart attack warning signs, call to get immediate medical attention! ?? Smoking can increase your chances of developing chronic health problems and can cause harmful effects to other family members in your house. If you smoke, you are strongly encouraged to quit. Please call [facility] at [phone] or [phone] ([phone]) or log in to [email or web address] for referrals to smoking cessation programs. ?? 155 Suicide & Crisis Lifeline is available 13/04 if you or someone you know needs to find a reason to keep living. By calling 055 you'll be connected to a skilled, trained counselor at a crisis center in your area. INPATIENT DISCHARGE INSTRUCTIONS SIGNATURE PAGE ROSA SIERRA Location:[facility] Registration Date and Time:12/13/2023 05:24 EDT Primary Care Physician: Alexx Stoner MD, Attending Physician: Juanita WOODY, Caprice Shea, I RIGOROSA, have received the above patient education materials/instructions and have verbalized understanding. If ambulance or transport services are being used I further acknowledge being given achoice of service. ?? If you need to contact me, please call me at this number: . Patient/Clutch Specialist Name: Patient/Clutch Specialist Signature: Relationship to Patient: Witness Name/Signature: Date: * Ivory Renae: PERFORM Event Display: Patient Education Leaflets Authored Date: [id number] Azithromycin Oral Tablet ?? 8580-1239 Azithromycin Oral Tablet Brands: Zithromax Uses For treating bacterial infection. ?? Instructions You may take with food to prevent stomach upset. Keep the medicine at room temperature. Avoid heat and direct light. Do not take this medicine with antacids. If you forget to take a dose on time, take it as soon as you remember. If it is almost time for thenext dose, do not take the missed dose. Return to your normal schedule. Do not take 2 doses at one time. Drug interactions can change how medicines work or increase risk for side effects. Tell your healthcare providers about all medicines taken. Include prescription and mkkz-qry-wmerkdv medicines, vitamins, and herbal medicines. Speak with your doctor or pharmacist before starting or stopping any medicine. Keep using this medicine for the full number of days that it is prescribed. Do not stop the medicine even if you start to feel better. ?? Cautions Tell your doctor and pharmacist if you ever had an allergic reaction to a medicine. Do not use the medication any more than instructed. Please tell your doctor if you have moderate to severe diarrhea while on this medicine. Do not treat the diarrhea with mvgr-mua-vpjlrqh diarrhea medicine. This medicine passes into breast milk. Ask your doctor before . During , this medicine should be used only when clearly needed. Talk to your doctor about the risks and benefits. Do not share this medicine with anyone who has not been prescribed this medicine. ?? Side Effects The following is a list of some common side effects from this medicine. Please speak with your doctor about what you should do if you experience these or other side effects. ??? diarrhea ??? nausea and vomiting ??? stomach upset or abdominal pain ??? yeast infection of mouth ??? vaginal itching or yeast infection Call your doctor or get medical help right away if you notice any of these more serious side effects: ??? severe, watery or bloody diarrhea ??? ear problems (ringing in the ears, hearing loss) ??? fainting ??? fast or irregular heart beats ??? signs of liver damage (such as yellowing of eye or skin, dark urine, or unusual tiredness) ??? muscle weakness ??? red, burning, or itchy skin ??? severe stomach or bowel pain ??? swelling in the neck or throat ??? blurring or changes of vision ??? severe or persistent vomiting A few people may have an allergic reaction to this medicine. Symptoms can include difficulty breathing, skin rash, itching, swelling, or severe dizziness. If you notice any of these symptoms, seek medical help quickly. ?? Extra Please speak with your doctor, nurse, or pharmacist if you have any questions about this medicine. ?? [email or web address] IMPORTANT NOTE: This document tells you briefly how to take your medicine, but it does not tell youall there is to know about it. Your doctor or pharmacist may give you other documents about your medicine. Please talk to them if you have any questions. Always follow their advice. There is a more complete description of this medicine available in [employer]. Scan this code on your smartphone or tablet or use the web address below. You can also ask your pharmacist for a printout. If you have any questions, please ask your pharmacist. The display and use of this drug information is subject to Terms of Use. Copyright(c) 2022 [employer]. ?? [employer]. All rights reserved. This information is not intended as a substitute for professional medical care. Always follow your healthcare professional's instructions. ?? * Ivory Renae: PERFORM Event Display: Patient Education Leaflets Authored Date: [id number] Cefdinir Oral Capsule ?? 8906-3949 Cefdinir Oral Capsule Uses For treating bacterial infection. ?? Instructions This medicine may be taken with or without food. Keep the medicine at room temperature. Avoid heat and direct light. Do not take this medicine with antacids. Do not take any antacid or vitamins with magnesium, calcium, aluminum, or iron for 2 hours before and 2 hours after taking this medicine. If you forget to take a dose on time, take it as soon as you remember. If it is almost time for thenext dose, do not take the missed dose. Return to your normal schedule. Do not take 2 doses at one time. Tell your doctor and pharmacist about all your medicines. Include prescription and jllr-ijf-nyjuerecsrgvznbl, vitamins, and herbal medicines. Keep using this medicine for the full number of days that it is prescribed. Do not stop the medicine even if you start to feel better. If you have diabetes and use urine glucose tests, this medicine may cause incorrect results. Pleasecheck with your doctor before making any changes to your diabetes treatment plan. Keep all appointments for medical exams and tests while on this medicine. ?? Cautions Tell your doctor and pharmacist if you ever had an allergic reaction to a medicine. Do not use the medication any more than instructed. Contact your doctor if you notice a change in the amount or darkening of your urine. Speak with your health care provider before receiving any vaccinations. Please tell your doctor if you have moderate to severe diarrhea while on this medicine. Do not treat the diarrhea with adar-jpm-jepkzmp diarrhea medicine. Tell the doctor or pharmacist if you are , planning to be , or . Do not start or stop any other medicines without first speaking to your doctor or pharmacist. Do not share this medicine with anyone who has not been prescribed this medicine. ?? Side Effects The following is a list of some common side effects from this medicine. Please speak with your doctor about what you should do if you experience these or other side effects. ??? diarrhea ??? changes in the color of the urine or stool ??? headaches ??? nausea and vomiting ??? stomach upset or abdominal pain ??? yeast infection of mouth ??? vaginal itching or yeast infection Call your doctor or get medical help right away if you notice any of these more serious side effects: ??? confusion ??? severe, watery or bloody diarrhea ??? signs of liver damage (such as yellowing ofeye or skin, dark urine, or unusual tiredness) ??? red, burning, or itchy skin ??? increased urinary frequency ??? urinating less often A few people may have an allergic reaction to this medicine. Symptoms can include difficulty breathing, skin rash, itching, swelling, or severe dizziness. If you notice any of these symptoms, seek medical help quickly. ?? Extra Please speak with your doctor, nurse, or pharmacist if you have any questions about this medicine. ?? [email or web address] IMPORTANT NOTE: This document tells you briefly how to take your medicine, but it does not tell youall there is to know about it. Your doctor or pharmacist may give you other documents about your medicine. Please talk to them if you have any questions. Always follow their advice. There is a more complete description of this medicine available in [employer]. Scan this code on your smartphone or tablet or use the web address below. You can also ask your pharmacist for a printout. If you have any questions, please ask your pharmacist. The display and use of this drug information is subject to Terms of Use. Copyright(c) 2022 [employer]. ?? [employer]. All rights reserved. This information is not intended as a substitute for professional medical care. Always follow your healthcare professional's instructions. ?? * Galen Ellis MD: PERFORM, MODIFY Event Display: Discharge/Transfer Note Hospital Authored Date: [id number] Patient: ??ROSA SIERRA ? Age:??78 Years?Sex:??Male?:??1945?? Patient Information Discharge Location: [facility] Primary Care Physician: Alexx Stoner MD Admit Date/Time: 12/13/23 05:24 Discharge Disposition Discharge Disposition: Home with Home Health Discharge Diagnosis Pneumonia (J18.9) Cough (R05.9) Dementia (F03.90) Fever (R50.9) Weakness (R53.1) ?? Please use as progress note for??12/14/2023 _ Discharge Medications Azithromycin (azithromycin 500 mg oral tablet)?1?tab(s)?500?Milligram?By Mouth?Daily?for 3?Days Cefdinir (cefdinir 300 mg oral capsule)?1?capsule?300?Milligram?By Mouth?Every 12hours?for 5?Days Fluoxetine (FLUoxetine 20 mg oral tablet)?2?tab(s)?40?Milligram?By Mouth?Daily ? Allergies Allergies ?(Active and Proposed Allergies Only) NKA? (Severity: Unknown severity, Onset: Unknown) ? PCP Follow-Up/Heads-Up Consider CT scan/repeat chest x-ray after completion of antibiotics. ??To rule out underlying malignancy. Hospital Course ??78-year-old male with a history of Alzheimer's dementia,??anxiety/depression presents to the emergency room with fevers, cough and??general malaise. ??He was found to have??right??middle lobe consolidation.?? In the hospital he was treated for a community-acquired pneumonia with IV ceftriaxone and azithromycin. ??COVID-19,??influenza??negative,??negative.?? He was not septic on admission. ??He was not hypoxic. Transition to oral antibiotics on discharge.?? Chest x-ray recommended after completion of antibiotics for??warranting a??CT chest??to evaluate for underlying malignancy. ?? After discussion with the patient's partner and case management, they opted for??rehab. ??PT has recommended home with services.?? Case management has sent out for referrals and will await??rehab placement if possible. Pending Results Blood Culture ordered on 12/13/2023 Blood Culture #2 ordered on 12/13/2023 Sputum Culture w/ Gram Smear ordered on 12/13/2023 Strep Pneumoniae Urinary Ag ordered on 12/13/2023 Follow-Up Appointments Added Follow Up ?Time Frame ?Comments Alexx Stoner MD?3-5 day: call to discuss follow up visit?hospital care follow up Post Discharge Care Diet: ??Regular Diet ?? Discharge ?12/14/23 10:54:00 EDT Home Health Face to Face *Denotes mandatory wilhelm ?? *I certify that this patient is under my care and that I or an allowed non- physician working with me had a face to face encounter with the patient on this date:??12/14/2023 11:02 ?? *The encounter with the patient was in whole, or in part, for the following medical condition, which is the primary diagnosis(es) for home health care:??Pneumonia (J18.9) Cough (R05.9) Dementia (F03.90) Fever (R50.9) Weakness (R53.1) ? *Select the indications for the discipline/s that are being arranged for this patient. Nursing (select all that apply): [_] None [x_] Medication management (reconciliation, teaching)?? [_] Chronic disease management?? [_] Wound care and treatment?? [_] Home safety evaluation [_] Administer SQ/IM/IV medications?? [_] Cath care?? [_] Drain care?? [_] Trach or GT care?? Other _ Occupation Therapy (select all that apply): [_] None [_] ADL Management [_] Fall prevention training [_] Energy conservation [_] Cognitive training Other _ Physical Therapy (select all that apply): [_] None [_] Functional mobility training [_] Home exercise program to strengthen [_] Increase ROM?? [_] Falls prevention training [_] Home maintenance program for chronic disease Other _ Speech Therapy (select all that apply): [_] None [x_] Swallow evaluation and training [_] Speech and language training [_] Cognitive training to process, organize, and/or recall information Other _ ? *Homebound due to (select all that apply): [_] Inability to leave home without assistance/supervision [_] Inability to ambulate without assistance [_] Pain [_] Decreased strength and endurance [_] Unsteady gait [_] Severe SOB and fatigue [_] Impaired transfers [_] Inability to negotiate stairs [_] Limited weight bearing [_] Mental status change? *Physician Signature: _Galen Ellis ?? *By signing this, I certify that I have personally evaluated the patient and agree with the findings and recommendations as documented above. ? HomeHealthFTF Results Discharge Labs BLOOD COUNT & DIFF WBC 11.4 k/mm3 (High)?? 12/14/2023 06:02 RBC 3.35 m/mm3 (Low)?? 12/14/2023 06:02 Hgb 10.7 Gm/dL (Low)?? 12/14/2023 06:02 Hct 32.6 % (Low)?? 12/14/2023 06:02 MCV 97.3 femtoliters (High)?? 12/14/2023 06:02 MCH 31.9 pg ()?? 12/14/2023 06:02 MCHC 32.8 g/dL (Low)?? 12/14/2023 06:02 Platelet Count 253 k/mm3 ()?? 12/14/2023 06:02 RDW-SD 49.3 femtoliters (High)?? 12/14/2023 06:02 MPV 10.6 femtoliters ()?? 12/14/2023 06:02 Nucleated RBC (Automated) 0.0 #/100 WBC'S ()?? 12/14/2023 06:02 Abs. NRBC 0.0 k/mm3 ()?? 12/14/2023 06:02 Abs. Neut 9.1 k/mm3 (High)?? 12/14/2023 06:02 Abs. Lymph 1.0 k/mm3 ()?? 12/14/2023 06:02 Abs. [place] 1.2 k/mm3 ()?? 12/14/2023 06:02 Abs. Eo 0.0 k/mm3 ()?? 12/14/2023 06:02 Abs. Baso 0.0 k/mm3 ()?? 12/14/2023 06:02 Neut % 79.8 % (High)?? 12/14/2023 06:02 Lymph % 8.4 % (Low)?? 12/14/2023 06:02 [place] % 10.8 % (High)?? 12/14/2023 06:02 Eos % 0.3 % ()?? 12/14/2023 06:02 Baso % 0.3 % ()?? 12/14/2023 06:02 Imm Gran 0.4 % ()?? 12/14/2023 06:02 Abs. Imm Gran 0.1 k/mm3 ()?? 12/14/2023 06:02 ?? CARDIAC Nt-Probnp 322 pg/mL ()?? 12/13/2023 02:42 High Sensitivity Troponin (HSTnT) 12 ng/L ()?? 12/13/2023 02:42 ?? CHEM GENERAL Sodium 134 mmol/L ()?? 12/13/2023 02:42 Potassium 4.2 mmol/L ()?? 12/13/2023 02:42 Chloride 99 mmol/L ()?? 12/13/2023 02:42 Bicarbonate Level 23 mmol/L ()?? 12/13/2023 02:42 Anion Gap 12 ()?? 12/13/2023 02:42 Glucose Level 124 mg/dL (High)?? 12/13/2023 02:42 BUN 25 mg/dL (High)?? 12/13/2023 02:42 Creatinine-Blood 1.0 mg/dL ()?? 12/13/2023 02:42 Estimated GFR Creatinine 72 ML/MIN/1.73 M2 ()?? 12/13/2023 02:42 Calcium 8.3 mg/dL (Low)?? 12/13/2023 02:42 Protein, Total 7.1 Gm/dL ()?? 12/13/2023 02:42 Albumin 3.5 Gm/dL ()?? 12/13/2023 02:42 AG Ratio 1.0 ()?? 12/13/2023 02:42 Alkaline Phosphatase 86 units/L ()?? 12/13/2023 02:42 AST (SGOT) 47 units/L (High)?? 12/13/2023 02:42 ALT (SGPT) 56 units/L (High)?? 12/13/2023 02:42 Bilirubin, Total 1.2 mg/dL ()?? 12/13/2023 02:42 Lactate 0.7 mmol/L ()?? 12/13/2023 02:42 ?? HEME OTHER Hold Blue Top SPECIMEN DISCARDED AFTER 4 HOURS. ()?? 12/13/2023 02:42 ? MISC. CHEMISTRY Hold Green Top SPECIMEN DISCARDED AFTER 1 WEEK ()?? 12/14/2023 05:52 Procalcitonin 0.18 ng/mL ()?? 12/13/2023 02:42 Hold Gel Top SPECIMEN DISCARDED AFTER 1 WEEK ()?? 12/13/2023 02:42 ? UA/URINALYSIS Appear/Color, Urine YELLOW ()?? 12/13/2023 03:48 Clarity CLEAR (N)?? 12/13/2023 03:48 Specific [place], Urine >1.030 (High)?? 12/13/2023 03:48 pH, Urine 6.0 ()?? 12/13/2023 03:48 Albumin, Urine 2+ (Abnormal)?? 12/13/2023 03:48 Glucose, Urine NEGATIVE (N)?? 12/13/2023 03:48 Ketones, Urine 1+ (Abnormal)?? 12/13/2023 03:48 Bilirubin, Urine NEGATIVE (N)?? 12/13/2023 03:48 Hemoglobin, Urine TRACE (Abnormal)?? 12/13/2023 03:48 Nitrite, Urine NEGATIVE (N)?? 12/13/2023 03:48 Leukocyte, Urine NEGATIVE (N)?? 12/13/2023 03:48 Urobilinogen 4 mg/dL (Abnormal)?? 12/13/2023 03:48 WBC's, Urine NONE SEEN /HPF ()?? 12/13/2023 03:48 RBC's, Urine 5 /HPF (High)?? 12/13/2023 03:48 Mucus SLIGHT /LPF ()?? 12/13/2023 03:48 Hold Urine Culture Testing available 48 hours from time of collection. ()?? 12/13/2023 03:48 ?? URINE OTHER Est Creatinine Clearance 47.88 mL/min ()?? 12/13/2023 06:25 ? VIROLOGY Influenza A PCR NEGATIVE ()?? 12/13/2023 02:00 Influenza B PCR NEGATIVE ()?? 12/13/2023 02:00 RSV PCR NEGATIVE ()?? 12/13/2023 02:00 COVID-19 PCR Specimen Source NASAL ()?? 12/13/2023 02:00 COVID-19 PCR Result NEGATIVE ()?? 12/13/2023 02:00 ? Microbiology ?? COVID-19, RSV, and Flu A/B, Rapid PCR?? Completed?? Source: Nasal Body Site: Nose Collected Dt/Tm: 12/13/2023 02:00 Last Updated Dt/Tm: 12/13/2023 03:03 ? Imaging(s) ?Chest 2 Views Frontal and Lat ?? 12/13/2023 04:13??by Aleshia WOODY, Devrim ?Right upper lobe opacity could represent pneumonia in the appropriate clinical setting.Differential diagnosis also includes malignancy. Follow-up with nonemergent chest CT with intravenous contrast should be considered based on clinical suspicion for malignancy. ? I spent a total of??50 minutes today reviewing the chart/medical records, speaking with the patient, formulating and discussing the treatment plan,??and documenting the findings and encounter. * Paz Erazo RN: PERFORM, SIGN, VERIFY Event Display: Case Management Discharge Plan Authored Date: Patient: ROSA SIERRA Age: 78 years Sex: Male : 1945 Associated Diagnoses: None Author: Paz Erazo RN Discharge Plan Case Management Discharge Plan : Case Management Discharge Plan Data 12/14/2023 11:41 EDT Discharge Level of Care at Discharge Homehealth/VNA Discharge VNA/Hospice/Home Care [facility] [place] Discharge Transportation Arranged private car Discharge Arranged Transport Date/Time 12/14/2023 13:00 Mode of Transportation Arranged Other Name of Agency #1 [facility] Categories #1 Half-Way, Speech Therapy Service Comments #1 [facility] will call you within 1-2 days of discharge to set up appointments! Name of Person Notified of Transfer patient Name of Receiving Clinician/Provider allscripts * Sharad Sales: PERFORM, SIGN, VERIFY Event Display: Patient Education Handout Authored Date: Patient Care team information Care Team Personnel Name: Alexx Stoner MD Position: [facility] Physician - Primary Care Member Role: PCP Address: Address: [address] [place] [address]- Name: Suzie Johnson RN Position: [facility] RN Member Role: Primary Care Nurse Care Team Related Persons Name: OLGA HANSON Address: home [address] [place] [address]
--- OUTSIDE RECORDS SUMMARY | 2024-01-01 20:29 | XMS_ITS | Continuity of Care Document ---
Author Organization [facility] Address [address] [address]- Care Team Providers Care Statistical Clerk Name Role Phone Alexx Stoner MD Primary Care Physician [phone] Encounter [facility] R [id number] Date(s): 12/11/20 - 01/10/21 [facility] [address] [address]- Attending Physician: Mak Vazquez Admitting Physician: Mak Vazquez Referring Physician: AdmtrMak Allergies, Adverse Reactions, Alerts Substance Reaction Severity Status NKA Active Immunizations Given and Recorded Vaccine Date Status Refusal Reason pneumococcal 13-valent vaccine 07/20/19 Given influenza virus vaccine, inactivated 07/20/19 Give n Medications Vitamin B12 1000 mcg oral tablet 1 tablet = 1,000 mcg, By Mouth, Daily, # 30 tablet, 11 Refills, Maintenance, 07/06/20 10:58:00 EDT,Tablet, [id number], 173, cm, 07/20/19 10:28:00 EDT, Height, 57.9, kg, 09/29/18 9:35:00 EST, Dry Weight Start Date: 07/06/20 Status: Ordered Xarelto 20 mg oral tablet 1 tablet = 20 mg, By Mouth, Daily at supper, # 30 tablet, 0 Refills, Maintenance, 01/08/21 12:35:00EDT, Tablet, [id number], Partial fill upon patient request if the [...]
--- OUTSIDE RECORDS SUMMARY | 2024-01-01 20:29 | XMS_ITS | Continuity of Care Document ---
Author Organization [facility] Address [address] [address]- Care Team Providers Care Dye Penetrant Testing Technician Name Role Phone Alexx Stoner MD Primary Care Physician Encounter [facility] [place] Date(s): 01/30/21 - 03/01/21 [facility] [place] [address] [place] [address]- [place] Allergies, Adverse Reactions, Alerts Substance Reaction Severity Status NKA Active Immunizations Given and Recorded Vaccine Date Status Refusal Reason pneumococcal 13-valent vaccine 07/20/19 Given influenza virus vaccine, inactivated 07/20/19 Give n Medications Vitamin B12 1000 mcg oral tablet 1 tablet = 1,000 mcg, By Mouth, Daily, # 30 tablet, 11 Refills, Maintenance, 07/06/20 10:58:00 EDT,Tablet, [facility][id number], 173, cm, 07/20/19 10:28:00 EDT, Height, 57.9, kg, 09/29/18 9:35:00 EST, Dry Weight Start Date: 07/06/20 Status: Ordered Xarelto 20 mg oral tablet 1 tablet = 20 mg, By Mouth, Daily at supper, # 30 tablet, 0 Refills, Maintenance, 01/08/21 12:35:00EDT, Tablet, [facility][id number], Partial fill upon patient request if the [...]
--- OUTSIDE RECORDS SUMMARY | 2024-01-01 20:29 | XMS_ITS | Continuity of Care Document ---
Author Organization [facility] Address [address] [place] [address]- Care Team Providers Care Hammer Smith Name Role Phone Alexx Stoner MD Primary Care Physician Encounter [facility] [place] Date(s): 09/25/20 - 10/25/[address] [address]- Allergies, Adverse Reactions, Alerts Substance Reaction Severity Status NKA Active Immunizations Given and Recorded Vaccine Date Status Refusal Reason pneumococcal 13-valent vaccine 07/20/19 Given influenza virus vaccine, inactivated 07/20/19 Give n Medications Vitamin B12 1000 mcg oral tablet 1 tablet = 1,000 mcg, By Mouth, Daily, # 30 tablet, 11 Refills, Maintenance, 07/06/20 10:58:00 EDT,[facility], [id number], 173, cm, 07/20/19 10:28:00 EDT, Height, 57.9, [...]
--- OUTSIDE RECORDS SUMMARY | 2024-01-01 20:29 | XMS_ITS | Continuity of Care Document ---
Author Organization [facility] Address [address] [place] [address]- Care Team Providers Care Bow String Maker Name Role Phone Alexx Stoner MD Primary Care Physician [phone] Encounter [facility] [place] Date(s): 08/10/23 - 09/09/23 [facility] [place] [address] [place] [address]- Attending Physician: Mak Vazquez Admitting Physician: AdmMak joy Referring Physician: Admtr, Ar8 Allergies, Adverse Reactions, Alerts No Known Allergies Immunizations Given and Recorded Vaccine Date Status Refusal Reason influenza virus vaccine, inactivated 07/10/23 Give n influenza virus vaccine, inactivated 1 07/07/22 Gi mahsa influenza virus vaccine, inactivated 07/20/19 Give n SARS-CoV-2 (COVID-19) mRNA BNT-162b2 vac 01/10/21 Recorded SARS-CoV-2 (COVID-19) mRNA BNT-162b2 vac 12/20/20 Recorded pneumococcal 13-valent vaccine 07/20/19 Given 1Result Comment: [id number] Medications [facility], Refills 0, Maintenance, 07/07/22 9:25:00 EDT, Supply Start Date: 07/07/22 Status: Ordered FLUoxetine 20 mg oral tablet 2 tablet = 40 mg, By Mouth, Daily, # 120 tablet, 3 Refills, Maintenance, 09/01/23 13:59:00 EST, Tablet, [id number], Partial fill upon patient request if the [...] Primary Care Member Role: PCP Address: Address: [address] [place] [address]- Care Team Related Persons Name: OLEGARIO MALONE Address: home [address] [place] [address]
--- OUTSIDE RECORDS SUMMARY | 2024-01-01 20:29 | XMS_ITS | Continuity of Care Document ---
Author Organization [facility] Address [address] [place] [address]- Care Team Providers Care Fish And Wildlife Technician Name Role Phone Alexx Stoner MD Primary Care Physician [place] [facility] Date(s): 05/26/23 - 06/25/[address] [address]- Allergies, Adverse Reactions, Alerts No Known Allergies Immunizations Given and Recorded Vaccine Date Status Refusal Reason influenza virus vaccine, inactivated 1 07/07/22 Gi mahsa influenza virus vaccine, inactivated 07/20/19 Give n SARS-CoV-2 (COVID-19) mRNA BNT-162b2 vac 01/10/21 Recorded SARS-CoV-2 (COVID-19) mRNA BNT-162b2 vac 12/20/20 Recorded pneumococcal 13-valent vaccine 07/20/19 Given 1Result Comment: [id number] Medications [facility], Refills 0, Maintenance, 07/07/22 9:25:00 EDT, Supply Start Date: 07/07/22 Status: Ordered FLUoxetine 20 mg oral tablet 1 tablet = 20 mg, By Mouth, Daily, # 90 tablet, 1 Refills, Maintenance, 05/14/23 14:43:00 EDT, Tablet, [facility][id number], Partial fill upon patient request if the prescription is for a schedule II opioid drug., 173, cm, 05/14/23 14:24:00 EDT,... Start Date: 05/14/23 Status: Ordered Gum [facility] - [facility] [...] Primary Care Member Role: PCP Address: Address: [address] [place] [address]- Care Team Related Persons Name: OLEGARIO MALONE Address: home [address] [place] [address]
--- OUTSIDE RECORDS SUMMARY | 2024-01-01 20:29 | XMS_ITS | Continuity of Care Document ---
Author Organization [facility] Address [address] [place] [address]- Care Team Providers Care Cutting Inspector Name Role Phone Georgiana WOODY, Alexx Primary Care Physician Encounter [facility] [place] Date(s): 04/28/22 - 05/05/[address] [address]- Attending Physician: Mike Mari NP Referring Physician: Alexx Stoner MD Allergies, Adverse Reactions, Alerts No Known Allergies Immunizations Given and Recorded Vaccine Date Status Refusal Reason SARS-CoV-2 (COVID-19) mRNA BNT-162b2 vac 01/10/21 Recorded SARS-CoV-2 (COVID-19) mRNA BNT-162b2 vac 12/20/20 Recorded pneumococcal 13-valent vaccine 07/20/19 Given influenza virus vaccine, inactivated 07/20/19 Give n Medications Bactrim DS 800 mg-160 mg oral tablet 1 tablet, By Mouth, 2 times a day, # 14 tablet, 0 Refills, Maintenance, 03/04/22 13:51:00 EDT, Tablet, [facility] #[id number], Partial fill upon patient request if the prescription is for a schedule II opioid drug., 1 tablet By Mouth 2 times a day... Start Date: 03/04/22 Stop Date: 03/11/22 Status: Ordered Ibuprofen Refills 0, Maintenance, 11/07/21 13:40:00 EST, Partial fill upon patient request if the prescription is for a schedule II opioid drug. Start Date: 11/07/21 Status: Ordered Problem List Condition Effective Dates Status Health Status Inform ant B12 deficiency(Confirmed) Active Femoral hernia of left side(Confirmed) Active Mild cognitive impairment(Confirmed) Active Phlebitis(Confirmed) Active Varicose veins of legs(Confirmed) Active Social History Social History Type Response Smoking Status Never smoker entered on: 04/06/17 Sex
--- OUTSIDE RECORDS SUMMARY | 2024-01-01 20:29 | XMS_ITS | Continuity of Care Document ---
Author Organization [facility] Address [address] [place] [address]- Care Team Providers Care Junior Technical Writer Name Role Phone Alexx Stoner MD Primary Care Physician [phone] Encounter [facility] Date(s): 03/05/22 - 03/12/22 [facility] [place] [address] [place] [address]- Attending Physician: Reg Lemus MD Admitting Physician: [...] 0 Refills, Maintenance, 03/04/22 13:51:00 EDT, Tablet, [facility][id number], Partial fill upon patient request if the [...] oldest [Reference Range]: 1 Height 173 cm (03/05/22 9:54 AM) Weight 59.8 kg (03/05/22 9:54 AM) Oxygen Saturation [94-100 %] 98 % (03/05/22 9:54 AM) Pulse Rate [55-90 bpm] 82 bpm (03/05/22 9:54 AM) Body Mass Index [18.5-24.99] 19.98 (03/05/22 9:54 AM) Blood Pressure [90-138/55-84 mm Hg] 89/6 6mm Hg *L* (03/05/22 9:54 AM) Blood pressure sites Arm, left (03/05/22 9:54 AM) Weight Obtained Via Standing scale (03/05/22 9:54 AM) Social History Social History Type Response Smoking Status Never smoker entered on: 04/06/17 Sex
--- OUTSIDE RECORDS SUMMARY | 2024-01-01 20:29 | XMS_ITS | Continuity of Care Document ---
Author Organization [facility] Address [address] [place] [address]- Care Team Providers Care Community Service Officer Name Role Phone Alexx Stoner MD Primary Care Physician En[place] [facility] [place] Date(s): 01/10/22 - 02/09/[address] [address]- Allergies, Adverse Reactions, Alerts No Known Allergies Immunizations Given and Recorded Vaccine Date Status Refusal Reason SARS-CoV-2 (COVID-19) mRNA BNT-162b2 vac 01/10/21 Recorded SARS-CoV-2 (COVID-19) mRNA BNT-162b2 vac 12/20/20 Recorded pneumococcal 13-valent vaccine 07/20/19 Given influenza virus vaccine, inactivated 07/20/19 Give n Medications Ibuprofen Refills 0, Maintenance, 11/07/21 13:40:00 EST, [...]
--- OUTSIDE RECORDS SUMMARY | 2024-01-01 20:29 | XMS_ITS | Continuity of Care Document ---
Author Organization [facility] Address [address] [place] [address]- Care Team Providers Care Tourist Information Assistant Name Role Phone Alexx Stoner MD Primary Care Physician [phone] Encounter [facility] [place] [place] Date(s): 07/19/20 - 11/02/20 [facility] [address] [place] [address]- Attending Physician: Alexx Stoner MD Admitting Physician: Alexx Stoner MD Allergies, Adverse Reactions, Alerts Substance Reaction Severity Status NKA Active Immunizations Given and Recorded Vaccine Date Status Refusal Reason pneumococcal 13-valent vaccine 07/20/19 Given influenza virus vaccine, inactivated 07/20/19 Give n Medications Bactrim DS 800 mg-160 mg oral tablet 1 tablet, By Mouth, 2 times a day, for 7 days, # 14 tablet, 0 Refills, Acute 11/05/20 10:23:00 EST,10/29/20 10:23:00 EST, Tablet, [id number], Partial fill upon patient request if theprescription is for a schedule II opioid drug., 1 t... Start Date: 10/29/20 Stop Date: 11/05/20 Status: Ordered Vitamin B12 1000 mcg oral tablet 1 tablet = 1,000 mcg, By Mouth, Daily, # 30 tablet, 11 Refills, Maintenance, 07/06/20 10:58:00 EDT,Tablet, [facility] #[id number], 173, cm, 07/20/19 10:28:00 EDT, Height, 57.9, [...]
--- OUTSIDE RECORDS SUMMARY | 2024-01-01 20:29 | XMS_ITS | Continuity of Care Document ---
Author Organization [facility] Address [address] [place] [address]- Care Team Providers Care Rn Pediatric Name Role Phone Alexx Stoner MD Primary Care Physician [phone] Encounter [facility] [place] Date(s): 10/29/20 - 11/05/[address] [address]- Encounter Diagnosis Phlebitis(Discharge Diagnosis) - 10/29/20 Varicose veins of legs(Discharge Diagnosis) - 10/29/20 Attending Physician: Dinesh Cleaning MD Admitting Physician: Dinesh Cleaning MD Allergies, Adverse Reactions, Alerts Substance Reaction Severity Status NKA Active Immunizations Given and Recorded Vaccine Date Status Refusal Reason pneumococcal 13-valent vaccine 07/20/19 Given influenza virus vaccine, inactivated 07/20/19 Give n Medications Vitamin B12 1000 mcg oral tablet 1 tablet = 1,000 mcg, By Mouth, Daily, # 30 tablet, 11 Refills, Maintenance, 07/06/20 10:58:00 EDT,Tablet, [facility] #[id number], 173, cm, 07/20/19 10:28:00 EDT, Height, 57.9, kg, 09/29/18 9:35:00 EST, Dry Weight Start Date: 07/06/20 Status: Ordered Problem List Condition Effective Dates Status Health Status Inform ant B12 deficiency(Confirmed) Active Femoral hernia of left side(Confirmed) Active Mild cognitive impairment(Confirmed) Active Phlebitis(Confirmed) Active Varicose veins of legs(Confirmed) Active Diagnosis Diagnosis Type Effective Dates Health Status Cl inical Service Informant Phlebitis Discharge Diagnosis 10/29/20 Varicose veins of legs Discharge Diagnosis 10/29/20 Social History Social History Type Response Smoking Status Never smoker entered on: 04/06/17 Sex
--- OUTSIDE RECORDS SUMMARY | 2024-01-01 20:29 | XMS_ITS | Continuity of Care Document ---
Author Organization [facility] Address [address] [place] [address]- Care Team Providers Care Predatory Animal Hunter Name Role Phone Georgiana WOODY, Alexx Primary Care Physician En[place] [facility] [place] Date(s): 04/01/22 - 04/08/[address] [address]- Encounter Diagnosis Mild cognitive impairment(Discharge Diagnosis) - 04/01/22 Attending Physician: Mike Mari NP Referring Physician: [...] 0 Refills, Maintenance, 03/04/22 13:51:00 EDT, Tablet, [facility] #[id number], Partial fill upon patient request if the [...] Diagnosis Diagnosis Type Effective Dates Health Status Clinical Service Informant Mild cognitive impairment Discharge Diagnosis 04/01/22 Social History Social History Type Response Smoking Status Never smoker entered on: 04/06/17 Sex
--- OUTSIDE RECORDS SUMMARY | 2024-01-01 20:29 | XMS_ITS | Continuity of Care Document ---
Author Organization [facility] Address [address] [place] [address]- Care Team Providers Care Engine Emission Technician Name Role Phone Alexx Stoner MD Primary Care Physician Encounter [facility] [place] Date(s): 11/15/20 - 11/22/20 [facility] [address] [place] [address]- Encounter Diagnosis Phlebitis of leg(Discharge Diagnosis) - 11/15/20 Attending Physician: Teresa Ace NP Admitting Physician: Teresa Ace NP Referring Physician: Teresa Ace NP Allergies, Adverse Reactions, Alerts Substance Reaction Severity Status NKA Active Immunizations Given and Recorded Vaccine Date Status Refusal Reason pneumococcal 13-valent vaccine 07/20/19 Given influenza virus vaccine, inactivated 07/20/19 Give n Medications Bactrim DS 800 mg-160 mg oral tablet 1 tablet, By Mouth, Every 12 hours, for 7 days, # 14 tablet, 0 Refills, Acute 11/28/20 10:06:00 EST, 11/21/20 10:06:00 EST, [facility] #[id number], Partial fill upon patient request if the prescription is for a schedule II opioid drug., 1 tablet B... Start Date: 11/21/20 Stop Date: 11/28/20 Status: Ordered Vitamin B12 1000 mcg oral tablet 1 tablet = 1,000 mcg, By Mouth, Daily, # 30 tablet, 11 Refills, Maintenance, 07/06/20 10:58:00 EDT,Tablet, [facility] #[id number], 173, cm, 07/20/19 10:28:00 EDT, Height, 57.9, kg, 09/29/18 9:35:00 EST, Dry Weight Start Date: 07/06/20 Status: Ordered Xarelto 20 mg oral tablet 1 tablet = 20 mg, By Mouth, Daily at supper, # 30 tablet, 0 Refills, Maintenance, 11/22/20 13:25:00EST, Tablet, [facility][id number], Partial fill upon patient request if the [...] Health Status Cl inical Service Informant Phlebitis of leg Discharge Diagnosis 11/15/20 Social History Social History Type Response Smoking Status Never smoker entered on: 04/06/17 Sex
--- OUTSIDE RECORDS SUMMARY | 2024-01-01 20:29 | XMS_ITS | Continuity of Care Document ---
Author Organization [facility] Address [address] [place] [address]- Care Team Providers Care Interlocking Installer Name Role Phone Georgiana WOODY, Alexx Primary Care Physician [phone] Encounter [facility] [place] Date(s): 04/02/23 - 05/02/[address] [address]- Attending Physician: AdmMak joy Admitting Physician: AdmtrMak Referring Physician: Admtr, Ar8 Allergies, Adverse Reactions, Alerts No Known Allergies Immunizations Given and Recorded Vaccine Date Status Refusal Reason influenza virus vaccine, inactivated 1 07/07/22 Gi mahsa influenza virus vaccine, inactivated 07/20/19 Give n SARS-CoV-2 (COVID-19) mRNA BNT-162b2 vac 01/10/21 Recorded SARS-CoV-2 (COVID-19) mRNA BNT-162b2 vac 12/20/20 Recorded pneumococcal 13-valent vaccine 07/20/19 Given 1Result Comment: 78491-349-51 Medications Brain and Memory - [facility] Brain and [facility] - [facility], Refills 0, Maintenance, 07/07/22 9:25:00 EDT, Supply Start Date: 07/07/22 Status: Ordered escitalopram 10 mg oral tablet 1 tablet = 10 mg, By Mouth, Daily, # 90 tablet, 1 Refills, Maintenance, 04/07/23 14:54:00 EDT, Tablet, [facility] #[id number], Partial fill upon patient request if the [...] Primary Care Member Role: PCP Address: Address: [address] [place] [address]- Care Team Related Persons Name: OLEGARIO MALONE Address: home [address] [place] [address]
--- OUTSIDE RECORDS SUMMARY | 2024-01-01 20:29 | XMS_ITS | Continuity of Care Document ---
Author Organization [facility] Address [address] [place] [address]- Care Team Providers Care Hammer Repairer Name Role Phone Alexx Stoner MD Primary Care Physician [phone] [place] [facility] [place] 03/27/21 - 04/03/21 [facility] [address] [place] [address]- Attending Physician: Reg Lemus MD Admitting Physician: [...] tablet, 11 Refills, Maintenance, 07/06/20 10:58:00 EDT,Tablet, [facility][id number], 173, cm, 07/20/19 10:28:00 EDT, Height, 57.9, kg, 09/29/18 9:35:00 EST, Dry Weight Start Date: 07/06/20 Status: Ordered Xarelto 20 mg oral tablet 1 tablet = 20 mg, By Mouth, Daily at supper, # 30 tablet, 0 Refills, Maintenance, 01/08/21 12:35:00EDT, Tablet, [facility][id number], Partial fill upon patient request if the [...] oldest [Reference Range]: 1 Height 173 cm (03/27/21 10:10 AM) Weight 60.3 kg (03/27/21 10:10 AM) Oxygen Saturation [94-100 %] 99 % (03/27/21 10:10 AM) Pulse Rate [55-90 bpm] 94 bpm *H* (03/27/21 10:10 AM) Body Mass Index [18.5-24.99] 20.15 (03/27/21 10:10 AM) Blood Pressure [90-138/55-84 mm Hg] 101/ 55mm Hg (03/27/21 10:10 AM) Blood pressure sites Arm, left (03/27/21 10:10 AM) Weight Obtained Via Standing scale (03/27/21 10:10 AM) Social History Social History Type Response Smoking Status Never smoker entered on: 04/06/17 Sex
--- OUTSIDE RECORDS SUMMARY | 2024-01-01 20:30 | XMS_ITS | Continuity of Care Document ---
Author Organization [facility] Address [address] [place] [address]- Care Team Providers Care Caisson Worker Name Role Phone Alexx Stoner MD Primary Care Physician Encounter [facility] [place] Date(s): 10/03/20 - 10/10/[address] [address]- Encounter Diagnosis Well adult exam(Discharge Diagnosis) - 10/04/20 Mild cognitive impairment(Discharge Diagnosis) - 10/04/20 B12 deficiency(Discharge Diagnosis) - 10/04/20 Varicose veins of legs(Discharge Diagnosis) - 10/04/20 Femoral hernia of left side(Discharge Diagnosis) - 10/04/20 Attending Physician: Alexx Stoner MD Admitting Physician: Alexx Stoner MD Referring Physician: Alexx Stoner MD Allergies, Adverse Reactions, Alerts Substance Reaction Severity Status NKA Active Immunizations Given and Recorded Vaccine Date Status Refusal Reason pneumococcal 13-valent vaccine 07/20/19 Given influenza virus vaccine, inactivated 07/20/19 Give n Medications Vitamin B12 1000 mcg oral tablet 1 tablet = 1,000 mcg, By Mouth, Daily, # 30 tablet, 11 Refills, Maintenance, 07/06/20 10:58:00 EDT,Tablet, [facility] #[id number], 173, cm, 07/20/19 10:28:00 EDT, Height, 57.9, kg, 09/29/18 9:35:00 EST, Dry Weight Start Date: 07/06/20 Status: Ordered Problem List Condition Effective Dates Status Health Status Inform ant B12 deficiency(Confirmed) Active Femoral hernia of left side(Confirmed) Active Mild cognitive impairment(Confirmed) Active Varicose veins of legs(Confirmed) Active Diagnosis Diagnosis Type Effective Dates Health Status Clinical Service Informant Well adult exam Discharge Diagnosis 10/04/20 Mild cognitive impairment Discharge Diagnosis 10/04/20 B12 deficiency Discharge Diagnosis 10/04/20 Varicose veins of legs Discharge Diagnosis 10/04/20 Femoral hernia of left side Discharge Diagnosis 10/04/20 Social History Social History Type Response Smoking Status Never smoker entered on: 04/06/17 Sex
--- OUTSIDE RECORDS SUMMARY | 2024-01-01 20:30 | XMS_ITS | Continuity of Care Document ---
Author Organization [facility] Address [address] [place] [address]- Care Team Providers Care Crusher And Binder Operator Name Role Phone Alexx Stoner MD Primary Care Physician En[place] [facility] [place] Date(s): 07/07/22 - 08/06/[address] [address]- Attending Physician: Mak Vazquez Admitting Physician: AdmMak joy Referring Physician: AdmtrMak Allergies, Adverse Reactions, Alerts No Known Allergies Immunizations Given and Recorded Vaccine Date Status Refusal Reason influenza virus vaccine, inactivated 1 07/07/22 Gi mahsa influenza virus vaccine, inactivated 07/20/19 Give n SARS-CoV-2 (COVID-19) mRNA BNT-162b2 vac 01/10/21 Recorded SARS-CoV-2 (COVID-19) mRNA BNT-162b2 vac 12/20/20 Recorded pneumococcal 13-valent vaccine 07/20/19 Given 1Result Comment: 79551-265-21 Medications Bactrim DS 800 mg-160 mg oral tablet 1 tablet, By Mouth, 2 times a day, # 14 tablet, 0 Refills, Maintenance, 03/04/22 13:51:00 EDT, Tablet, [facility][id number], Partial fill upon patient request if the prescription is for a schedule II opioid drug., 1 tablet By Mouth 2 times a day... Start Date: 03/04/22 Stop Date: 03/11/22 Status: Ordered Brain and Memory - [facility] Brain and [facility] - [facility], Refills 0, Maintenance, 07/07/22 9:25:00 EDT, Supply Start Date: 07/07/22 Status: Ordered Gum Guardian - [facility] [...] dementia Confirmed Active B12 deficiency Confirmed Active Femoral hernia of left side Confirmed Active Phlebitis Confirmed Active Varicose veins of legs Confirmed Active Social History Social History Type Response Smoking Status Never smoker entered on: 04/06/17 Sex Patient Care team information Care Team Personnel Name: Alexx Stoner MD Position: S Primary Care Physician Member Role: PCP Address: Address: [address] [place] [address]- Care Team Related Persons Name: OLEGARIO MALONE Address: home [address] [place] [address]
--- OUTSIDE RECORDS SUMMARY | 2024-01-01 20:30 | XMS_ITS | Continuity of Care Document ---
Author Organization [facility] Address [address] [place] [address]- Care Team Providers Care Iron And Steel Work Supervisor Name Role Phone Alexx Stoner MD Primary Care Physician [place] [facility] [place] 05/21/22 - 06/20/[address] [address]- Allergies, Adverse Reactions, Alerts No Known Allergies [...] 0 Refills, Maintenance, 03/04/22 13:51:00 EDT, Tablet, [facility] #[id number], Partial fill upon patient request if the prescription is for a schedule II opioid drug., 1 tablet By Mouth 2 times a day... Start Date: 03/04/22 Stop Date: 03/11/22 Status: Ordered Ibuprofen Refills 0, Maintenance, 11/07/21 13:40:00 EST, Partial fill upon patient request if the prescription is for a schedule II opioid drug. Start Date: 11/07/21 Status: Ordered Problem List Condition Confirmation Course Effective Dates Status Health St atus Informant B12 deficiency Confirmed Active Femoral hernia of left side Confirmed Active Mild cognitive impairment Confirmed Active Phlebitis Confirmed Active Varicose veins of legs Confirmed Active Social History Social History Type Response Smoking Status Never smoker entered on: 04/06/17 Sex Patient Care team information Personnel Name: Alexx Stoner MD Address: Address: [address] [place] [address]-
--- OUTSIDE RECORDS SUMMARY | 2024-01-01 20:30 | XMS_ITS | Continuity of Care Document ---
Author Organization [facility] Address [address] [place] [address]- Care Team Providers Care Spool Winder Name Role Phone Alexx Stoner MD Primary Care Physician [place] [facility] [place] Date(s): 03/27/21 - 04/26/21 [facility] [place] [address] [place] [address]- Attending Physician: Mak Vazquez Admitting Physician: AdmMak [...] tablet, 11 Refills, Maintenance, 07/06/20 10:58:00 EDT,Tablet, [facility][id number], 173, cm, 07/20/19 10:28:00 EDT, Height, 57.9, kg, 09/29/18 9:35:00 EST, Dry Weight Start Date: 07/06/20 Status: Ordered Xarelto 20 mg oral tablet 1 tablet = 20 mg, By Mouth, Daily at supper, # 30 tablet, 0 Refills, Maintenance, 01/08/21 12:35:00EDT, Tablet, [facility][id number], Partial fill upon patient request if the [...]
--- OUTSIDE RECORDS SUMMARY | 2024-01-01 20:30 | XMS_ITS | Continuity of Care Document ---
Author Organization [facility] Address [address] [place] [address]- Care Team Providers Care Manager Clinical Pharmacy Name Role Phone Georgiana WOODY, Alexx Primary Care Physician [phone] En[place] [facility] [place] Date(s): 09/01/23 - 09/08/[address] [address]- Attending Physician: Mike Mari NP Allergies, Adverse Reactions, Alerts No Known Allergies Immunizations Given and Recorded Vaccine Date Status Refusal Reason influenza virus vaccine, inactivated 07/10/23 Give n influenza virus vaccine, inactivated 1 07/07/22 Gi mahsa influenza virus vaccine, inactivated 07/20/19 Give n SARS-CoV-2 (COVID-19) mRNA BNT-162b2 vac 01/10/21 Recorded SARS-CoV-2 (COVID-19) mRNA BNT-162b2 vac 12/20/20 Recorded pneumococcal 13-valent vaccine 07/20/19 Given 1Result Comment: 56899-017-89 Medications Brain and [facility] - [facility] Brain [facility], Refills 0, Maintenance, 07/07/22 9:25:00 EDT, Supply Start Date: 07/07/22 Status: Ordered FLUoxetine 20 mg oral tablet 2 tablet = 40 mg, By Mouth, Daily, # 120 tablet, 3 Refills, Maintenance, 09/01/23 13:59:00 EST, Tablet, [facility] #[id number], Partial fill upon patient request if the [...] Primary Care Member Role: PCP Address: Address: [address] [place] [address]- Care Team Related Persons Name: OLEGARIO MALONE Address: home [address] [place] [address]
--- OUTSIDE RECORDS SUMMARY | 2024-01-01 20:30 | XMS_ITS | Continuity of Care Document ---
Author Organization [facility] Address [address] [place] [address]- Care Team Providers Care Plastic Process Technician Name Role Phone Alexx Stoner MD Primary Care Physician [phone] [facility] [place]/10/23 - 08/17/23 [facility] [place] [address] [place] [address]- Attending Physician: Karthikeyan Garcia MD Admitting Physician: Karthikeyan Garcia MD Referring Physician: Alexx Stoner MD Allergies, [...] pneumococcal 13-valent vaccine 07/20/19 Given 1Result Comment: 48111-415-37 Medications Brain and [facility] - [facility], Refills 0, Maintenance, 07/07/22 9:25:00 EDT, Supply Start Date: 07/07/22 Status: Ordered FLUoxetine 20 mg oral tablet 1.5 tablet = 30 mg, By Mouth, Daily, # 135 tablet, 3 Refills, Maintenance, 07/10/23 10:57:00 EDT, Tablet, [facility] #[id number], Partial fill upon patient request if the prescription is for a schedule II opioid drug., 173, cm, 07/10/23 10:31:00 E... Start Date: 07/10/23 Status: Ordered Gum Guardian - [facility] [...] Active Varicose veins of legs Confirmed Active Vital Signs Most recent to oldest [Reference Range]: 1 Height 173 cm (08/10/23 1:47 PM) Weight 57.7 kg (08/10/23 1:47 PM) Oxygen Saturation [94-100 %] 99 % (08/10/23 1:47 PM) Pulse Rate [55-90 bpm] 63 bpm (08/10/23 1:47 PM) Body Mass Index [18.5-24.99 kg/m2] 19.28 kg/m2 (08/10/23 1:47 PM) Blood Pressure [90-138/55-84 mm Hg] 107/ 65mm Hg (08/10/23 1:47 PM) Blood pressure sites Arm, left (08/10/23 1:47 PM) Weight Obtained Via Standing scale (08/10/23 1:47 PM) Social History Social History Type Response Smoking Status Never smoker entered on: 04/06/17 Sex Note * Charlette Benavides: PERFORM, SIGN, VERIFY Event Display: Patient Education/Instruction Authored Date: [id number] [facility] *[facility] [place] Clinical Summary Name ROSA SIERRA Age 78 Years 1945 PCP Alexx Stoner MD PCP Visit Date 08/10/2023 13:37:00 Additional Instructions: Scheduled Appointments?? Future Appointments ?No Future Appointments Scheduled Follow-Up Instructions ?? With: Address: When: Radha WOODY, Karthikeyan Banerjee , only if needed Diagnosis Medications: Please continue your medications until treatment is completed or stopped by your provider. Discuss any questions related to medications with your provider. Medications to Continue with No Changes These medications were not printed or sent to your pharmacy Fluoxetine (FLUoxetine 20 mg oral tablet) 1.5 tab(s) Oral Daily. Refills: 3. Next Dose: Ibuprofen Next Dose: Miscellaneous Rx (Brain and Memory - [facility]) Next Dose: Miscellaneous Rx (Gum Guardian - [facility]) Next Dose: Miscellaneous Rx (Rapid Immune Boost - [facility]) Next Dose: Miscellaneous Rx (Virattack - [facility]) Next Dose: Miscellaneous Rx (Warming Circulation - [facility]) Next Dose: Allergy Info:?? NKA Medications Given This Visit Future Orders ?No future orders Vital Signs Height 173 cm Weight 57.7 kg BMI 19.28 kg/m2 Blood Pressure 107 mm Hg/65 mm Hg Temperature Pulse Rate 63 bpm Respiratory Rate 02 Sat Mode of Delivery 99 %/ You can now view a summary of your hospital visit from the comfort of your home through a free online portal called [employer]. [employer] is a website that allows you to securely view your medical information including discharge summary, medications and follow-up visits. ??You can alsosend a secure electronic message to your doctor???s office to request appointments, renew medications or just ask a question. You can enroll at [email or web address] or register during your next office visit. Disclaimer:?? The information provided is of a general nature and is intended to be used in conjunction with the recommendations and advice of your health care practitioner. ??Every effort has been made to ensure that the information provided is accurate and complete at the time it is provided to you however, as your needs change, or, as new ??information becomes available, different or additional instructions may be required. If you have questions, please consult with your primary care provider or pharmacist, as appropriate. ??This information is not intended to serve as substitution for assessment and evaluation by a qualified health care provider. If you do not have a primary care provider, you may find a [facility] provider by calling [facility] [employer] at [phone]. [facility], in keeping with [facility] guidance, no longer requires face masks for staff, patientsor visitors in most situations. Similar to time spent indoors at other locations, there is the chance that you were exposed to respiratory viruses during your time with us (such as flu or COVID-19).? If you develop symptoms concerning for a viral respiratory infection, please seek testing (and treatment if indicated) from your medical provider or home test kit. For information about the plan of care including goals and instructions for your diagnosis, please see the patient education orders section of this document. Patient Education Materials?? The content of this educational material or handout may have been modified, supplemented, or adapted from its original content and format to support your individualized medical care. Patient Care team information Care Team Personnel Name: Alexx Stoner MD Position: S Physician - Primary Care Member Role: PCP Address: Address: [address] [place] [address]- Care Team Related Persons Name: OLEGARIO MALONE Address: home [address] [place], [place] [address]
--- OUTSIDE RECORDS SUMMARY | 2024-01-01 20:30 | XMS_ITS | Continuity of Care Document ---
Author Organization [facility] Address [address] [place] [address]- Care Team Providers Care Prism Measurer Name Role Phone Alexx Stoner MD Primary Care Physician En[place] [facility] [place] Date(s): 05/15/23 - 06/14/23 [facility] [address] [place], [place] [address] Allergies, Adverse Reactions, Alerts No Known Allergies Immunizations Given and Recorded Vaccine Date Status Refusal Reason influenza virus vaccine, inactivated 1 07/07/22 Gi mahsa influenza virus vaccine, inactivated 07/20/19 Give n SARS-CoV-2 (COVID-19) mRNA BNT-162b2 vac 01/10/21 Recorded SARS-CoV-2 (COVID-19) mRNA BNT-162b2 vac 12/20/20 Recorded pneumococcal 13-valent vaccine 07/20/19 Given 1Result Comment: 69391-080-53 Medications [facility] and [facility] - [facility], Refills 0, Maintenance, 07/07/22 9:25:00 EDT, Supply Start Date: 07/07/22 Status: Ordered FLUoxetine 20 mg oral tablet 1 tablet = 20 mg, By Mouth, Daily, # 90 tablet, 1 Refills, Maintenance, 05/14/23 14:43:00 EDT, Tablet, [facility][id number], Partial fill upon patient request if the [...] Team Personnel Name: Alexx Stoner MD Position: [facility] Physician - Primary Care Member Role: PCP Address: Address: [address] [place] [address]- Care Team Related Persons Name: OLEGARIO MALONE Address: home [address] [place] [address]
--- OUTSIDE RECORDS SUMMARY | 2024-01-01 20:30 | XMS_ITS | Continuity of Care Document ---
Author Organization [facility] Address [address] [place] [address]- Care Team Providers Care Manager Life Insurance Name Role Phone Alexx Stoner MD Primary Care Physician [place] [facility] [place] Date(s): 06/21/21 - 07/21/[address] [address]- Allergies, Adverse Reactions, Alerts Substance Reaction Severity Status NKA Active Immunizations Given and Recorded Vaccine Date Status Refusal Reason pneumococcal 13-valent vaccine 07/20/19 Given influenza virus vaccine, inactivated 07/20/19 Give n Medications Vitamin B12 1000 mcg oral tablet 1 tablet = 1,000 mcg, By Mouth, Daily, # 30 tablet, 11 Refills, Maintenance, 07/06/20 10:58:00 EDT,Tablet, [facility] #[id number], 173, cm, 07/20/19 10:28:00 EDT, Height, 57.9, kg, 09/29/18 9:35:00 EST, Dry Weight Start Date: 07/06/20 Status: Ordered Xarelto 20 mg oral tablet 1 tablet = 20 mg, By Mouth, Daily at supper, # 30 tablet, 0 Refills, Maintenance, 01/08/21 12:35:00EDT, Tablet, [facility] #75691, Partial fill upon patient request if the [...]
--- OUTSIDE RECORDS SUMMARY | 2024-01-01 20:30 | XMS_ITS | Continuity of Care Document ---
Author Organization [facility] Address [address] [place] [address]- Care Team Providers Care Test Examiner Name Role Phone Alexx Stoner MD Primary Care Physician [place] [facility] [place] Date(s): 04/10/23 - 05/10/[address] [address]- Allergies, Adverse Reactions, Alerts No Known Allergies Immunizations Given and Recorded Vaccine Date Status Refusal Reason influenza virus vaccine, inactivated 1 07/07/22 Gi mahsa influenza virus vaccine, inactivated 07/20/19 Give n SARS-CoV-2 (COVID-19) mRNA BNT-162b2 vac 01/10/21 Recorded SARS-CoV-2 (COVID-19) mRNA BNT-162b2 vac 12/20/20 Recorded pneumococcal 13-valent vaccine 07/20/19 Given 1Result Comment: [id number] Medications Brain and [facility] Brain [facility], Refills 0, Maintenance, 07/07/22 9:25:00 EDT, Supply Start Date: 07/07/22 Status: Ordered escitalopram 10 mg oral tablet 1 tablet = 10 mg, By Mouth, Daily, # 90 tablet, 1 Refills, Maintenance, 04/07/23 14:54:00 EDT, Tablet, [facility] #[id number], Partial fill upon patient request if the [...] Primary Care Member Role: PCP Address: Address: [address] [place] [address]- Care Team Related Persons Name: OLEGARIO MALONE Address: home [address] [place] [address]
--- OUTSIDE RECORDS SUMMARY | 2024-01-01 20:30 | XMS_ITS | Continuity of Care Document ---
Author Organization [facility] Address [address] [place] [address]- Care Team Providers Care Gas Pumping Station Helper Name Role Phone Alexx Stoner MD Primary Care Physician [phone] Encounter [facility] [place] Date(s): 06/11/22 - 06/18/22 [facility] [place] [address] [place] [address]- Attending Physician: Reg Lemus MD Admitting Physician: [...] 0 Refills, Maintenance, 03/04/22 13:51:00 EDT, Tablet, [facility] #01259, Partial fill upon patient request if the [...] oldest [Reference Range]: 1 Height 173 cm (9/21/22 2:37 PM) Weight 58.5 kg (06/11/22 2:37 PM) Oxygen Saturation [94-100 %] 99 % (06/11/22 2:37 PM) Pulse Rate [55-90 bpm] 75 bpm (06/11/22 2:37 PM) Body Mass Index [18.5-24.99 kg/m2] 19.55 kg/m2 (06/11/22 2:37 PM) Blood Pressure [90-138/55-84 mm Hg] 96/5 3mm Hg (06/11/22 2:37 PM) Mode of Delivery (Oxygen) Room air (06/11/22 2:37 PM) Blood pressure sites Arm, left (06/11/22 2:37 PM) Weight Obtained Via Standing scale (06/11/22 2:37 PM) Social History Social History Type Response Smoking Status Never smoker entered on: 04/06/17 Sex Patient Care team information Personnel Name: Alexx Stoner MD Address: Address: [address] [place] [address]
--- OUTSIDE RECORDS SUMMARY | 2024-01-01 20:30 | XMS_ITS | Continuity of Care Document ---
Author Organization [facility] Address [address] [place] [address]- Care Team Providers Care Coding File Clerk Name Role Phone Alexx Stoner MD Primary Care Physician [phone] [place] [facility] [place]s): 12/17/20 - 01/16/21 [facility] [place] [address] [place] [address]- [place] Allergies, Adverse Reactions, Alerts Substance Reaction Severity Status NKA Active Immunizations Given and Recorded Vaccine Date Status Refusal Reason pneumococcal 13-valent vaccine 07/20/19 Given influenza virus vaccine, inactivated 07/20/19 Give n Medications Vitamin B12 1000 mcg oral tablet 1 tablet = 1,000 mcg, By Mouth, Daily, # 30 tablet, 11 Refills, Maintenance, 07/06/20 10:58:00 EDT,Tablet, [facility]78386, 173, cm, 07/20/19 10:28:00 EDT, Height, 57.9, kg, 09/29/18 9:35:00 EST, Dry Weight Start Date: 07/06/20 Status: Ordered Xarelto 20 mg oral tablet 1 tablet = 20 mg, By Mouth, Daily at supper, # 30 tablet, 0 Refills, Maintenance, 01/08/21 12:35:00EDT, Tablet, [facility]66814, Partial fill upon patient request if the [...]
--- OUTSIDE RECORDS SUMMARY | 2024-01-01 20:30 | XMS_ITS | Continuity of Care Document ---
Author Organization [facility] Medicine Address [address] [place] [address]- Care Team Providers Care Physical Damage Appraiser Name Role Phone Alexx Stoner MD Primary Care Physician [place] [facility] [place](s[place] 11/07/21 - 11/14/[address] [address]- Encounter Diagnosis Left thigh pain(Discharge Diagnosis) - 11/07/21 Attending Physician: Angel Johnson MD Admitting Physician: Angel Johnson MD Referring Physician: Alexx Stoner MD Allergies, [...] Dates Health Status Cl inical Service Informant Left thigh pain Discharge Diagnosis 11/07/21 Vital Signs Most recent to oldest [Reference Range]: 1 Height 173 cm (11/07/21 1:39 PM) Weight 62.8 kg (11/07/21 1:39 PM) Oxygen Saturation [94-100 %] 96 % (11/07/21 1:39 PM) Pulse Rate [55-90 bpm] 93 bpm *H* (11/07/21 1:39 PM) Body Mass Index [18.5-24.99] 20.98 (11/07/21 1:39 PM) Blood Pressure [90-138/55-84 mm Hg] 116/ 60mm Hg (11/07/21 1:39 PM) Blood pressure sites Arm, right (11/07/21 1:39 PM) Social History Social History Type Response Smoking Status Never smoker entered on: 04/06/17 Sex
--- OUTSIDE RECORDS SUMMARY | 2024-01-01 20:30 | XMS_ITS | Continuity of Care Document ---
Author Organization [facility] Medicine Address [address] [place] [address]- Care Team Providers Care Apigee Developer Name Role Phone Alexx Stoner MD Primary Care Physician [phone] Encounter [facility] [place] Date(s): 03/07/22 - 03/14/[address] [address]- Encounter Diagnosis Well adult exam(Discharge Diagnosis) - 03/07/22 Memory loss(Discharge Diagnosis) - 03/07/22 B12 deficiency(Discharge Diagnosis) - 03/07/22 Varicose veins of legs(Discharge Diagnosis) - 03/07/22 Left leg cellulitis(Discharge Diagnosis) - 03/07/22 Arrhythmia(Discharge Diagnosis) - 03/08/22 Advance directive discussed with patient(Discharge Diagnosis) - 03/08/22 Attending Physician: Alexx Stoner MD Admitting Physician: [...] 0 Refills, Maintenance, 03/04/22 13:51:00 EDT, Tablet, [facility][id number], Partial fill upon patient request if the [...] Service Informant Well adult exam Discharge Diagnosis 03/07/22 Memory loss Discharge Diagnosis 03/07/22 B12 deficiency Discharge Diagnosis 03/07/22 Varicose veins of legs Discharge Diagnosis 03/07/22 Left leg cellulitis Discharge Diagnosis 03/07/22 Arrhythmia Discharge Diagnosis 03/08/22 Advance directive discussed with patient Discharge Diagnosis 03/08/22 Vital Signs Most recent to oldest [Reference Range]: 1 Height 173 cm (03/07/22 2:55 PM) Weight 58.2 kg (03/07/22 2:55 PM) Oxygen Saturation [94-100 %] 95 % (03/07/22 2:55 PM) Pulse Rate [55-90 bpm] 86 bpm (03/07/22 2:55 PM) Body Mass Index [18.5-24.99] 19.45 (03/07/22 2:55 PM) Blood Pressure [90-138/55-84 mm Hg] 98/6 1mm Hg (03/07/22 2:55 PM) Blood pressure sites Arm, right (03/07/22 2:55 PM) Social History Social History Type Response Smoking Status Never smoker entered on: 04/06/17 Sex
--- OUTSIDE RECORDS SUMMARY | 2024-01-01 20:30 | XMS_ITS | Continuity of Care Document ---
Author Organization [facility] Medicine Address [address] [place] [address]- Care Team Providers Care High School Physical Education Teacher Name Role Phone Alexx Stoner MD Primary Care Physician Encounter [place] Date(s): 04/02/23 - 05/02/[address] [address]- Encounter Diagnosis Alzheimer's dementia(Discharge Diagnosis) - 04/02/23 B12 deficiency(Discharge Diagnosis) - 04/02/23 Attending Physician: Trell Walker NP Admitting Physician: Trell Walker NP Allergies, Adverse Reactions, Alerts No Known Allergies Immunizations Given and Recorded Vaccine Date Status Refusal Reason influenza virus vaccine, inactivated 1 07/07/22 Gi mahsa influenza virus vaccine, inactivated 07/20/19 Give n SARS-CoV-2 (COVID-19) mRNA BNT-162b2 vac 01/10/21 Recorded SARS-CoV-2 (COVID-19) mRNA BNT-162b2 vac 12/20/20 Recorded pneumococcal 13-valent vaccine 07/20/19 Given 1Result Comment: 53574-005-77 Medications Brain and Memory - [facility], Refills 0, Maintenance, 07/07/22 9:25:00 EDT, Supply Start Date: 07/07/22 Status: Ordered escitalopram 10 mg oral tablet 1 tablet = 10 mg, By Mouth, Daily, # 90 tablet, 1 Refills, Maintenance, 04/07/23 14:54:00 EDT, Tablet, [facility][id number], Partial fill upon patient request if the [...] Condition Confirmation Course Effective Dates Status Health atus Informant Alzheimer's dementia Confirmed Active B12 deficiency Confirmed Active 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 Phlebitis Confirmed Active Varicose veins of legs Confirmed Active Diagnosis Diagnosis Type Effective Dates Health Status Clinical Service Informant Alzheimer's dementia Discharge Diagnosis 04/02/23 B12 deficiency Discharge Diagnosis 04/02/23 Social History Social History Type Response Smoking Status Never smoker entered on: 04/06/17 Sex Patient Care team information Care Team Personnel Name: Alexx Stoner MD Position: S Physician - Primary Care Member Role: PCP Address: Address: [address] [place] [address]- Care Team Related Persons Name: OLEGARIO MALONE Address: home [address] [place] [address]
--- OUTSIDE RECORDS SUMMARY | 2024-01-01 20:30 | XMS_ITS | Continuity of Care Document ---
Author Organization [facility] Address [address] [place] [address]- Care Team Providers Care Database Technician Name Role Phone Alexx Stoner MD Primary Care Physician [phone] Encounter [facility] Date(s): 12/18/20 - 01/17/21 [facility] [address] [place] [address]- Attending Physician: Mak Vazquez Admitting Physician: AdmMak [...] Refills, Maintenance, 07/06/20 10:58:00 EDT,Tablet, [id number], 173, cm, 07/20/19 10:28:00 EDT, Height, 57.9, kg, 09/29/18 9:35:00 EST, Dry Weight Start Date: 07/06/20 Status: Ordered Xarelto 20 mg oral tablet 1 tablet = 20 mg, By Mouth, Daily at supper, # 30 tablet, 0 Refills, Maintenance, 01/08/21 12:35:00EDT, Tablet, [facility] #[id number], Partial fill upon patient request if the [...]
--- OUTSIDE RECORDS SUMMARY | 2024-01-01 20:30 | XMS_ITS | Continuity of Care Document ---
Author Organization [facility] Medicine Address [address] [place] [address]- Care Team Providers Care Social Work Professor Name Role Phone Alexx Stoner MD Primary Care Physician [phone] [place] [facility] [place] Date(s[place] 09/10/20 - 09/17/[address] [address]- Encounter Diagnosis Open wound of left thigh(Discharge Diagnosis) - 09/10/20 Attending Physician: Félix Max MD Admitting Physician: Félix Max MD Allergies, Adverse Reactions, Alerts Substance Reaction Severity Status NKA Active Immunizations Given and Recorded Vaccine Date Status Refusal Reason pneumococcal 13-valent vaccine 07/20/19 Given influenza virus vaccine, inactivated 07/20/19 Give n Medications Vitamin B12 1000 mcg oral tablet 1 tablet = 1,000 mcg, By Mouth, Daily, # 30 tablet, 11 Refills, Maintenance, 07/06/20 10:58:00 EDT,Tablet, [facility] #[id number], 173, cm, 07/20/19 10:28:00 EDT, Height, 57.9, kg, 09/29/18 9:35:00 EST, Dry Weight Start Date: 07/06/20 Status: Ordered Problem List Condition Effective Dates Status Health Status Inform ant B12 deficiency(Confirmed) Active DVT - Deep vein thrombosis(Confirmed) Active Femoral hernia of left side(Confirmed) Active Mild cognitive impairment(Confirmed) Active Varicose veins of legs(Confirmed) Active Diagnosis Diagnosis Type Effective Dates Health Status Cl inical Service Informant Open wound of left thigh Discharge Diagnosis 09/10/20 Vital Signs Most recent to oldest [Reference Range]: 1 Height 173 cm (09/10/20 10:30 AM) Weight 61.4 kg (09/10/20 10:30 AM) Oxygen Saturation [94-100 %] 98 % (09/10/20 10:30 AM) Pulse Rate [55-90 bpm] 68 bpm (09/10/20 10:30 AM) Body Mass Index [18.5-24.99] 20.52 (09/10/20 10:30 AM) Blood Pressure [90-138/55-84 mm Hg] 94/5 2mm Hg (09/10/20 10:30 AM) Blood pressure sites Arm, left (09/10/20 10:30 AM) Dry Weight 61.4 kg (09/10/20 10:30 AM) Weight Obtained Via Standing scale (09/10/20 10:30 AM) Dry Weight Obtained Via Standing scale (09/10/20 10:30 AM) Social History Social History Type Response Smoking Status Never smoker entered on: 04/06/17 Sex
--- OUTSIDE RECORDS SUMMARY | 2024-01-01 20:30 | XMS_ITS | Continuity of Care Document ---
Author Organization [facility] Address [address] [place] [address]- Care Team Providers Care Logistics Planning Manager Name Role Phone Alexx Stoner MD Primary Care Physician [place] [facility] [place] - 02/27/21 [facility] [address] [place] [address]- Attending Physician: Mak Vazquez Admitting Physician: AdmMak [...] Refills, Maintenance, 07/06/20 10:58:00 EDT,Tablet, [facility][id number], 173, cm, 07/20/19 10:28:00 EDT, Height, 57.9, kg, 09/29/18 9:35:00 EST, Dry Weight Start Date: 07/06/20 Status: Ordered Xarelto 20 mg oral tablet 1 tablet = 20 mg, By Mouth, Daily at supper, # 30 tablet, 0 Refills, Maintenance, 01/08/21 12:35:00EDT, Tablet, [facility][id number], Partial fill upon patient request if the [...]
--- OUTSIDE RECORDS SUMMARY | 2024-01-01 20:30 | XMS_ITS | Continuity of Care Document ---
Author Organization [facility] Address [address] [place] [address]- Care Team Providers Care Medical Support Assistant Name Role Phone Alexx Stoner MD Primary Care Physician [phone] Encounter [facility] [place] Date(s): 06/11/22 - 07/11/22 [facility] [place] [address] [place] [address]- Attending Physician: Mak Vazquez Admitting Physician: Mak Vazquez Referring Physician: Admtr Ar8 Allergies, Adverse Reactions, Alerts No Known Allergies Immunizations Given and Recorded Vaccine Date Status Refusal Reason influenza virus vaccine, inactivated 1 07/07/22 Gi mahsa influenza virus vaccine, inactivated 07/20/19 Give n SARS-CoV-2 (COVID-19) mRNA BNT-162b2 vac 01/10/21 Recorded SARS-CoV-2 (COVID-19) mRNA BNT-162b2 vac 12/20/20 Recorded pneumococcal 13-valent vaccine 07/20/19 Given 1Result Comment: 06173-463-73 Medications Bactrim DS 800 mg-160 mg oral tablet 1 tablet, By Mouth, 2 times a day, # 14 tablet, 0 Refills, Maintenance, 03/04/22 13:51:00 EDT, Tablet, [facility] #[id number], Partial fill upon patient request if the [...] Personnel Name: Alexx Stoner MD Address: Address: [address] [place] [id number]
--- OUTSIDE RECORDS SUMMARY | 2024-01-01 20:30 | XMS_ITS | Continuity of Care Document ---
Author Organization [facility] Address [address] [place] [address]- Care Team Providers Care Therapeutic Dietitian Name Role Phone Georgiana WOODY, Alexx Primary Care Physician Encounter [facility] [place] Date(s): 05/20/22 - 05/27/[address] [address]- Attending Physician: Mike Mari NP Referring Physician: [...] 0 Refills, Maintenance, 03/04/22 13:51:00 EDT, Tablet, [facility] #[id number], Partial fill upon patient request if the [...] Status Never smoker entered on: 04/06/17 Sex Care Team Personnel Name: Alexx Stoner MD Address: [address] [place] [id number]
--- OUTSIDE RECORDS SUMMARY | 2024-01-01 20:30 | XMS_ITS | Continuity of Care Document ---
Author Organization [facility] Medicine Address [address] [place] [address]- Care Team Providers Care Geotechnical Operating Engineer Name Role Phone Alexx Stoner MD Primary Care Physician [place] [facility] [place](s): 04/03/23 - 05/03/[address] [address]- Allergies, Adverse Reactions, Alerts No Known Allergies Immunizations Given and Recorded Vaccine Date Status Refusal Reason influenza virus vaccine, inactivated 1 07/07/22 Gi mahsa influenza virus vaccine, inactivated 07/20/19 Give n SARS-CoV-2 (COVID-19) mRNA BNT-162b2 vac 01/10/21 Recorded SARS-CoV-2 (COVID-19) mRNA BNT-162b2 vac 12/20/20 Recorded pneumococcal 13-valent vaccine 07/20/19 Given 1Result Comment: 66093-260-51 Medications Brain [facility] - [facility], Refills 0, Maintenance, 07/07/22 9:25:00 EDT, Supply Start Date: 07/07/22 Status: Ordered escitalopram 10 mg oral tablet 1 tablet = 10 mg, By Mouth, Daily, # 90 tablet, 1 Refills, Maintenance, 04/07/23 14:54:00 EDT, Tablet, [facility] #[id number], Partial fill upon patient request if the [...] Primary Care Member Role: PCP Address: Address: [address] [place] [address]- Care Team Related Persons Name: OLEGARIO MALONE Address: home [address] [place] [address]
--- OUTSIDE RECORDS SUMMARY | 2024-01-01 20:30 | XMS_ITS | Continuity of Care Document ---
Author Organization [facility] Address [address] [place] [address]- Care Team Providers Care Charhouse Worker Name Role Phone Alexx Stoner MD Primary Care Physician [place] [facility] [place](s): 05/20/22 - 06/19/[address] [address]- Attending Physician: Mak Vazquez Admitting Physician: Mak [...] 0 Refills, Maintenance, 03/04/22 13:51:00 EDT, Tablet, [facility] #[id number], Partial fill upon patient request if the [...] Personnel Name: Alexx Stoner MD Address: Address: [address] [place] [id number]
--- OUTSIDE RECORDS SUMMARY | 2024-01-01 20:30 | XMS_ITS | Continuity of Care Document ---
Author Organization [facility] Medicine Address [address] [place] [address]- Care Team Providers Care Real Estate Administrator Name Role Phone Alexx Stoner MD Primary Care Physician Encounter [facility] [place] Date(s): 04/02/23 - 05/15/[address] [address]- Attending Physician: Dinesh Cleaning MD Admitting Physician: Dinesh Cleaning MD Allergies, Adverse Reactions, Alerts No Known Allergies Immunizations Given and Recorded Vaccine Date Status Refusal Reason influenza virus vaccine, inactivated 1 07/07/22 Gi mahsa influenza virus vaccine, inactivated 07/20/19 Give n SARS-CoV-2 (COVID-19) mRNA BNT-162b2 vac 01/10/21 Recorded SARS-CoV-2 (COVID-19) mRNA BNT-162b2 vac 12/20/20 Recorded pneumococcal 13-valent vaccine 07/20/19 Given 1Result Comment: [id number] Medications [facility], Refills 0, Maintenance, 07/07/22 9:25:00 EDT, Supply Start Date: 07/07/22 Status: Ordered FLUoxetine 20 mg oral tablet 1 tablet = 20 mg, By Mouth, Daily, # 90 tablet, 1 Refills, Maintenance, 05/14/23 14:43:00 EDT, Tablet, [facility] #[id number], Partial fill upon patient request if the [...] Care Member Role: PCP Address: Address: [address] [place] [address]- Care Team Related Persons Name: OLEGARIO MALONE Address: home [address] [place] [address]
--- OUTSIDE RECORDS SUMMARY | 2024-01-01 20:30 | XMS_ITS | Continuity of Care Document ---
Author Organization [facility] Address [address] [place] [address]- Care Team Providers Care Market Risk Manager Name Role Phone Alexx Stoner MD Primary Care Physician Encounter [facility] [place] Date(s): 09/26/20 - 10/26/[address] [address]- Attending Physician: Mak Vazquez Admitting Physician: AdmtrMak Referring Physician: Admtr, ArChata Allergies, Adverse Reactions, Alerts Substance Reaction Severity Status NKA Active Immunizations Given and Recorded Vaccine Date Status Refusal Reason pneumococcal 13-valent vaccine 07/20/19 Given influenza virus vaccine, inactivated 07/20/19 Give n Medications Vitamin B12 1000 mcg oral tablet 1 tablet = 1,000 mcg, By Mouth, Daily, # 30 tablet, 11 Refills, Maintenance, 07/06/20 10:58:00 EDT,Tablet, [facility] #[id number], 173, cm, 07/20/19 10:28:00 EDT, Height, 57.9, [...]
--- OUTSIDE RECORDS SUMMARY | 2024-01-01 20:30 | XMS_ITS | Continuity of Care Document ---
Author Organization [facility] Address [address] [place] [address]- Care Team Providers Care Casino Gaming Worker Name Role Phone Alexx Stoner MD Primary Care Physician En[place] [facility] [place] Date(s): 11/22/20 - 12/22/20 [facility] [place] [address] [place] [address]- [place] Allergies, Adverse Reactions, Alerts Substance Reaction Severity Status NKA Active Immunizations Given and Recorded Vaccine Date Status Refusal Reason pneumococcal 13-valent vaccine 07/20/19 Given influenza virus vaccine, inactivated 07/20/19 Give n Medications Vitamin B12 1000 mcg oral tablet 1 tablet = 1,000 mcg, By Mouth, Daily, # 30 tablet, 11 Refills, Maintenance, 07/06/20 10:58:00 EDT,Tablet, [facility] #[id number], 173, cm, 07/20/19 10:28:00 EDT, Height, 57.9, kg, 09/29/18 9:35:00 EST, Dry Weight Start Date: 07/06/20 Status: Ordered Xarelto 20 mg oral tablet 1 tablet = 20 mg, By Mouth, Daily at supper, # 30 tablet, 0 Refills, Maintenance, 11/22/20 13:25:00EST, Tablet, [facility] #00945, Partial fill upon patient request if the [...]
--- OUTSIDE RECORDS SUMMARY | 2024-01-01 20:30 | XMS_ITS | Continuity of Care Document ---
Author Organization [facility] Medicine Address [address] [place] [address]- Care Team Providers Care Machinery Cleaner Name Role Phone Alexx Stoner MD Primary Care Physician [phone] Encounter [facility] Date(s): 07/07/22 - 07/14/[address] [address]- Encounter Diagnosis Alzheimer's dementia(Discharge Diagnosis) - 07/07/22 Varicose veins of legs(Discharge Diagnosis) - 07/07/22 Anxiety(Discharge Diagnosis) - 07/08/22 Attending Physician: Alexx Stoner MD Admitting Physician: Alexx Stoner MD Allergies, Adverse Reactions, Alerts No Known Allergies Immunizations Given and Recorded Vaccine Date Status Refusal Reason influenza virus vaccine, inactivated 1 07/07/22 Gi mahsa influenza virus vaccine, inactivated 07/20/19 Give n SARS-CoV-2 (COVID-19) mRNA BNT-162b2 vac 01/10/21 Recorded SARS-CoV-2 (COVID-19) mRNA BNT-162b2 vac 12/20/20 Recorded pneumococcal 13-valent vaccine 07/20/19 Given 1Result Comment: [id number] Medications Bactrim DS 800 mg-160 mg oral tablet 1 tablet, By Mouth, 2 times a day, # 14 tablet, 0 Refills, Maintenance, 03/04/22 13:51:00 EDT, Tablet, [facility] #[id number], Partial fill upon patient request if the [...] Diagnosis Diagnosis Type Effective Dates Health Status inical Service Informant Alzheimer's dementia Discharge Diagnosis 07/07/22 Varicose veins of legs Discharge Diagnosis 07/07/22 Anxiety Discharge Diagnosis 07/08/22 Vital Signs Most recent to oldest [Reference Range]: 1 Height 173 cm (07/07/22 9:23 AM) Weight 58 kg (07/07/22 9:23 AM) Oxygen Saturation [94-100 %] 99 % (07/07/22 9:23 AM) Pulse Rate [55-90 bpm] 69 bpm (07/07/22 9:23 AM) Body Mass Index [18.5-24.99 kg/m2] 19.38 kg/m2 (07/07/22 9:23 AM) Blood Pressure [90-138/55-84 mm Hg] 105/ 62mm Hg (07/07/22 9:23 AM) Blood pressure sites Arm, left (07/07/22 9:23 AM) Social History Social History Type Response Smoking Status Never smoker entered on: 7/17/17 Sex Patient Care team information Personnel Name: Alexx Stoner MD Address: Address: [address] [place] [id number]
--- OUTSIDE RECORDS SUMMARY | 2024-01-01 20:30 | XMS_ITS | Continuity of Care Document ---
Author Organization [facility] Address [address] [place] [address]- Care Team Providers Care Cribber Name Role Phone Alexx Stoner MD Primary Care Physician [phone] [place] [facility] [place] - 05/02/22 [facility] [place] [address] [place] [address]- Attending Physician: Reg Lemus MD Admitting Physician: [...] 0 Refills, Maintenance, 03/04/22 13:51:00 EDT, Tablet, [facility] #[id number], Partial fill upon patient request if the [...]
--- OUTSIDE RECORDS SUMMARY | 2024-01-01 20:30 | XMS_ITS | Continuity of Care Document ---
Author Organization [facility] Address [address] [place] [address]- Care Team Providers Care Chief Clerk Name Role Phone Georgiana WOODY, Alexx Primary Care Physician En[place] [facility] [place] Date(s): 04/02/23 - 04/09/[address] [address]- Attending Physician: Mike Mari NP Allergies, Adverse Reactions, Alerts No Known Allergies Immunizations Given and Recorded Vaccine Date Status Refusal Reason influenza virus vaccine, inactivated 1 07/07/22 Gi mahsa influenza virus vaccine, inactivated 07/20/19 Give n SARS-CoV-2 (COVID-19) mRNA BNT-162b2 vac 01/10/21 Recorded SARS-CoV-2 (COVID-19) mRNA BNT-162b2 vac 12/20/20 Recorded pneumococcal 13-valent vaccine 07/20/19 Given 1Result Comment: 58471-636-76 Medications [facility], Refills 0, Maintenance, 07/07/22 9:25:00 EDT, Supply Start Date: 07/07/22 Status: Ordered escitalopram 10 mg oral tablet 1 tablet = 10 mg, By Mouth, Daily, # 90 tablet, 1 Refills, Maintenance, 04/07/23 14:54:00 EDT, Tablet, [facility] #[id number], Partial fill upon patient request if the [...] Team Personnel Name: Alexx Stoner MD Position: [facility] Physician - Primary Care Member Role: PCP Address: Address: [address] [place] [address]- Care Team Related Persons Name: OLEGARIO MALONE Address: home [address] [place] [address]
--- OUTSIDE RECORDS SUMMARY | 2024-01-01 20:30 | XMS_ITS | Continuity of Care Document ---
Author Organization [facility] Address [address] [place] [address]- Care Team Providers Care Aircraft Mechanic Armament Name Role Phone Alexx Stoner MD Primary Care Physician [phone] [place] [facility] [place] - 05/07/22 [facility] [place] [address] [place] [address]- [place] Allergies, Adverse Reactions, Alerts No Known Allergies [...] 0 Refills, Maintenance, 03/04/22 13:51:00 EDT, Tablet, [facility] #[id number], Partial fill upon patient request if the [...]
--- OUTSIDE RECORDS SUMMARY | 2024-01-01 20:30 | XMS_ITS | Continuity of Care Document ---
Author Organization [facility] Address [address] [place] [address]- Care Team Providers Care Vice President Consulting Services Name Role Phone Alexx Stoner MD Primary Care Physician [phone] [place] [facility] [place](s): 06/21/21 - 07/21/21 [facility] [place] [address] [place] [address]- [place] Allergies, Adverse Reactions, Alerts Substance Reaction Severity Status NKA Active Immunizations Given and Recorded Vaccine Date Status Refusal Reason pneumococcal 13-valent vaccine 07/20/19 Given influenza virus vaccine, inactivated 07/20/19 Give n Medications Vitamin B12 1000 mcg oral tablet 1 tablet = 1,000 mcg, By Mouth, Daily, # 30 tablet, 11 Refills, Maintenance, 07/06/20 10:58:00 EDT,Tablet, [facility] #[id number], 173, cm, 07/20/19 10:28:00 EDT, Height, 57.9, kg, 09/29/18 9:35:00 EST, Dry Weight Start Date: 07/06/20 Status: Ordered Xarelto 20 mg oral tablet 1 tablet = 20 mg, By Mouth, Daily at supper, # 30 tablet, 0 Refills, Maintenance, 01/08/21 12:35:00EDT, Tablet, [facility] #76534, Partial fill upon patient request if the [...]
--- OUTSIDE RECORDS SUMMARY | 2024-01-01 20:30 | XMS_ITS | Continuity of Care Document ---
Author Organization [facility] Medicine Address [address] [place] [address]- Care Team Providers Care Interior Assemblies Installer Name Role Phone Alexx Stoner MD Primary Care Physician [phone] [place] [facility] [place] 10/29/20 - 11/28/[address] [address]- Allergies, Adverse Reactions, Alerts Substance Reaction Severity Status NKA Active Immunizations Given and Recorded Vaccine Date Status Refusal Reason pneumococcal 13-valent vaccine 07/20/19 Given influenza virus vaccine, inactivated 07/20/19 Give n Medications Vitamin B12 1000 mcg oral tablet 1 tablet = 1,000 mcg, By Mouth, Daily, # 30 tablet, 11 Refills, Maintenance, 07/06/20 10:58:00 EDT,Tablet, [facility] #[id number], 173, cm, 07/20/19 10:28:00 EDT, Height, 57.9, kg, 09/29/18 9:35:00 EST, Dry Weight Start Date: 07/06/20 Status: Ordered Xarelto 20 mg oral tablet 1 tablet = 20 mg, By Mouth, Daily at supper, # 30 tablet, 0 Refills, Maintenance, 11/22/20 13:25:00EST, Tablet, [facility] #[id number], Partial fill upon patient request if the [...]
--- OUTSIDE RECORDS SUMMARY | 2024-01-01 20:30 | XMS_ITS | Continuity of Care Document ---
Author Organization [facility] habilitation Address [address] [place] [address]- Care Team Providers Care Police Surgeon Name Role Phone Alexx Stoner MD Primary Care Physician [phone] En[place] [facility] [place](s): 05/21/22 - 06/20/22 [facility] [address] [place], [place] [address] Attending Physician: Mak Vazquez Admitting Physician: AdmMak joy Referring Physician: [id number] Allergies, Adverse Reactions, Alerts No Known Allergies [...] 0 Refills, Maintenance, 03/04/22 13:51:00 EDT, Tablet, [facility] #[id number], Partial fill upon patient request if the [...] Personnel Name: Alexx Stoner MD Address: Address: [address] [place] [id number]
--- OUTSIDE RECORDS SUMMARY | 2024-01-01 20:30 | XMS_ITS | Continuity of Care Document ---
Author Organization [facility] Address [address] [place] [address]- Care Team Providers Care Brush Maker Name Role Phone Georgiana WOODY, Alexx Primary Care Physician [place] [facility] [place](s): 11/12/23 - 11/19/[address] [address]- Attending Physician: Mike Mari NP Allergies, Adverse [...] pneumococcal 13-valent vaccine 07/20/19 Given 1Result Comment: 78585-718-70 Medications [facility], Refills 0, Maintenance, 07/07/22 9:25:00 EDT, Supply Start Date: 07/07/22 Status: Ordered FLUoxetine 20 mg oral tablet 2 tablet = 40 mg, By Mouth, Daily, # 120 tablet, 3 Refills, Maintenance, 09/01/23 13:59:00 EST, Tablet, [facility] #[id number], Partial fill upon patient request if the [...] smoker entered on: 04/06/17 Sex Note * Sanjay Perez: PERFORM, SIGN, VERIFY Event Display: Patient Education/Instruction Authored Date: [id number] [facility] *[facility] Clinical Summary Name ROSA SIERRA Age 78 Years 1945 PCP Alexx Stoner MD PCP Visit Date 11/12/2023 12:59:00 Additional Instructions: Scheduled Appointments?? Future Appointments ?No Future Appointments Scheduled Follow-Up Instructions ?? Diagnosis Alzheimer's disease, unspecified Medications: Please continue your medications until treatment is completed or stopped by your provider. Discuss any questions related to medications with your provider. Medications to Continue with No Changes These medications were not printed or sent to your pharmacy Fluoxetine (FLUoxetine 20 mg oral tablet) 2 tab(s) Oral Daily. Refills: 3. Next Dose: [...] Orders ?No future orders Vital Signs Height Weight BMI Blood Pressure / Temperature Pulse Rate Respiratory Rate 02 Sat Mode of Delivery / You can now view a summary of your hospital visit from the comfort of your home through a free online portal called [employer]. [employer] is a website that allows you to securely view your medical information including discharge summary, medications and follow-up visits. ??You can alsosend a secure electronic message to your doctor???s office to request appointments, renew medications or just ask a question. You can enroll at [email or web address] or register during your next office visit. [...] primary care provider, you may find a [facility] provider by calling [employer] at [phone]. [facility] Parudi, in keeping with [facility] guidance, no longer requires face masks [...] Team Personnel Name: Alexx Stoner MD Position: [facility] Physician - Primary Care Member Role: PCP Address: Address: [address] [place] [address]- [place] Care Team Related Persons Name: OLEGARIO MALONE Address: home [address] [place] [address]
--- OUTSIDE RECORDS SUMMARY | 2024-01-01 20:30 | XMS_ITS | Continuity of Care Document ---
Author Organization [facility] Medicine Address [address] [place] [address]- Care Team Providers Care Manager Ct Name Role Phone Alexx Stoner MD Primary Care Physician [phone] [place] [facility] [place] Date[place] 11/07/21 - 12/07/[address] [address]- Attending Physician: Mak Vazquez Admitting Physician: Mak [...]
--- OUTSIDE RECORDS SUMMARY | 2024-01-01 20:30 | XMS_ITS | Continuity of Care Document ---
Author Organization [facility] Medicine Address [address] [place] [address]- Care Team Providers Care Scrap Charger Name Role Phone Alexx Stoner MD Primary Care Physician Encounter [facility] [place] Date(s): 11/13/23 - 12/13/[address] [address]- Allergies, Adverse Reactions, Alerts No Known Allergies Immunizations Given and Recorded Vaccine Date Status Refusal Reason influenza virus vaccine, inactivated 07/10/23 Give n influenza virus vaccine, inactivated 1 07/07/22 Gi mahsa influenza virus vaccine, inactivated 07/20/19 Give n SARS-CoV-2 (COVID-19) mRNA BNT-162b2 vac 01/10/21 Recorded SARS-CoV-2 (COVID-19) mRNA BNT-162b2 vac 12/20/20 Recorded pneumococcal 13-valent vaccine 07/20/19 Given 1Result Comment: 84925-074-75 Medications Brain [facility] - [facility], Refills 0, Maintenance, 07/07/22 9:25:00 EDT, Supply Start Date: 07/07/22 Status: Ordered FLUoxetine 20 mg oral tablet 2 tablet = 40 mg, By Mouth, Daily, # 120 tablet, 3 Refills, Maintenance, 09/01/23 13:59:00 EST, Tablet, [facility] #[id number], Partial fill upon patient request if the [...] Team Personnel Name: Alexx Stoner MD Position: [facility] Physician - Primary Care Member Role: PCP Address: Address: [address] [place] [address]- Name: Suzie Johnson RN Position: [facility] RN Member Role: Primary Care Nurse Care Team Related Persons Name: OLEGARIO MALONE Address: home [address] [place] [address]
--- OUTSIDE RECORDS SUMMARY | 2024-01-01 20:30 | XMS_ITS | Continuity of Care Document ---
Author Organization [facility] Address [address] [place] [address]- Care Team Providers Care Fruit Or Nut Farmworker Name Role Phone Alexx Stoner MD Primary Care Physician [phone] [place] [facility] [place] 01/30/21 - 02/06/21 [facility] [address] [place] [address]- Attending Physician: Reg Lemus MD Admitting Physician: [...] tablet, 11 Refills, Maintenance, 07/06/20 10:58:00 EDT,Tablet, [facility] #[id number], 173, cm, 07/20/19 10:28:00 EDT, Height, 57.9, kg, 09/29/18 9:35:00 EST, Dry Weight Start Date: 07/06/20 Status: Ordered Xarelto 20 mg oral tablet 1 tablet = 20 mg, By Mouth, Daily at supper, # 30 tablet, 0 Refills, Maintenance, 01/08/21 12:35:00EDT, Tablet, [facility] #[id number], Partial fill upon patient request if the [...]
--- OUTSIDE RECORDS SUMMARY | 2024-01-01 20:30 | XMS_ITS | Continuity of Care Document ---
Author Organization [facility] Address [address] [place] [address]- Care Team Providers Care Radioactivity Technician Name Role Phone Georgiana WOODY, Alexx Primary Care Physician [phone] En[place] [facility] [place] Date(s): 03/20/22 - 04/20/[address] [address]- Attending Physician: Joshua Cruz MD Referring Physician: Alexx Stoner MD Allergies, [...] 0 Refills, Maintenance, 03/04/22 13:51:00 EDT, Tablet, [facility] #[id number], Partial fill upon patient request if the [...]
--- OUTSIDE RECORDS SUMMARY | 2024-01-01 20:30 | XMS_ITS | Continuity of Care Document ---
Author Organization [facility] Medicine Address [address] [place] [address]- Care Team Providers Care Composing Room Machinist Name Role Phone Alexx Stoner MD Primary Care Physician [place] [facility] [place](s[place] 07/06/20 - 07/13/[address] [address]- [facility] Encounter Diagnosis Mild cognitive impairment(Discharge Diagnosis) - 07/06/20 B12 deficiency(Discharge Diagnosis) - 07/06/20 Attending Physician: Alexx Stoner MD Admitting Physician: [...] tablet, 11 Refills, Maintenance, 07/06/20 10:58:00 EDT,Tablet, [facility] #[id number], 173, cm, 07/20/19 10:28:00 EDT, Height, 57.9, [...] Service Informant Mild cognitive impairment Discharge Diagnosis 07/06/20 B12 deficiency Discharge Diagnosis 07/06/20 Social History Social History Type Response Smoking Status Never smoker entered on: 04/06/17 Sex
--- OUTSIDE RECORDS SUMMARY | 2024-01-01 20:31 | XMS_ITS | Continuity of Care Document ---
Author Organization [facility] Medicine Address [address] [place] [address]- Care Team Providers Care Senior Systems Administrator Name Role Phone Alexx Stoner MD Primary Care Physician En[place] [facility] [place] Date(s): 03/13/22 - 04/12/[address] [address]- Allergies, Adverse Reactions, Alerts No Known Allergies [...] 03/04/22 13:51:00 EDT, Tablet, [facility] #[id number], Partial fill upon patient request if the [...]
--- OUTSIDE RECORDS SUMMARY | 2024-01-01 20:31 | XMS_ITS | Continuity of Care Document ---
Author Organization [facility] Medicine Address [address] [place] [address]- Care Team Providers Care Steam Conditioning Operator Name Role Phone Alexx Stoner MD Primary Care Physician [place] [facility] [place]/15/23 - 08/14/[address] [address] Allergies, Adverse Reactions, Alerts No Known Allergies Immunizations Given and Recorded Vaccine Date Status Refusal Reason influenza virus vaccine, inactivated 07/10/23 Give n influenza virus vaccine, inactivated 1 07/07/22 Gi mahsa influenza virus vaccine, inactivated 07/20/19 Give n SARS-CoV-2 (COVID-19) mRNA BNT-162b2 vac 01/10/21 Recorded SARS-CoV-2 (COVID-19) mRNA BNT-162b2 vac 12/20/20 Recorded pneumococcal 13-valent vaccine 07/20/19 Given 1Result Comment: 39700-909-56 Medications [facility], Refills 0, Maintenance, 07/07/22 9:25:00 EDT, Supply Start Date: 07/07/22 Status: Ordered FLUoxetine 20 mg oral tablet 1.5 tablet = 30 mg, By Mouth, Daily, # 135 tablet, 3 Refills, Maintenance, 07/10/23 10:57:00 EDT, Tablet, [facility] #[id number], Partial fill upon patient request if the [...] Primary Care Member Role: PCP Address: Address: [address] [place] [address]- Care Team Related Persons Name: OLEGARIO MALONE Address: home [address] [place] [address]
--- OUTSIDE RECORDS SUMMARY | 2024-01-01 20:31 | XMS_ITS | Continuity of Care Document ---
Author Organization [facility] Medicine Address [address] [place] [address]- Care Team Providers Care Tourist Camp Attendant Name Role Phone Alexx Stoner MD Primary Care Physician En[place] [facility] [place] Date(s): 05/09/22 - 06/08/[address] [address]- Allergies, Adverse Reactions, Alerts No Known Allergies [...] 0 Refills, Maintenance, 03/04/22 13:51:00 EDT, Tablet, [facility] #[id number], Partial fill upon patient request if the [...] Team Personnel Name: Alexx Stoner MD Address: [address] [place] [address]-
--- OUTSIDE RECORDS SUMMARY | 2024-01-01 20:31 | XMS_ITS | Continuity of Care Document ---
Author Organization [facility] Address [address] [place] [address]- Care Team Providers Care Manager Banquet Name Role Phone Alexx Stoner MD Primary Care Physician [place] [facility] [place] 03/20/22 - 04/19/[address] [address]- Allergies, Adverse Reactions, Alerts No Known Allergies [...] 0 Refills, Maintenance, 03/04/22 13:51:00 EDT, Tablet, [facility] #[id number], Partial fill upon patient request if the [...]
--- OUTSIDE RECORDS SUMMARY | 2024-01-01 20:31 | XMS_ITS | Continuity of Care Document ---
Author Organization [facility] Medicine Address [address] [place] [address]- Care Team Providers Care Tractor Drill Operator Name Role Phone Alexx Stoner MD Primary Care Physician [phone] En[place] [facility] [place] Date(s): 01/10/22 - 01/17/[address] [address]- Encounter Diagnosis Dizziness(Discharge Diagnosis) - 01/10/22 B12 deficiency(Discharge Diagnosis) - 01/10/22 Attending Physician: Alexx Stoner MD Admitting Physician: [...] Dates Health Status Cl inical Service Informant Dizziness Discharge Diagnosis 01/10/22 B12 deficiency Discharge Diagnosis 01/10/22 Vital Signs Most recent to oldest [Reference Range]: 1 2 Height 173 cm (01/10/22 12:50 PM) 173 cm (01/10/22 9:57 AM) Weight 62 kg (01/10/22 9:57 AM) Oxygen Saturation [94-100 %] 97 % (01/10/22 9:57 AM) Pulse Rate [55-90 bpm] 79 bpm (01/10/22 9:57 AM) Body Mass Index [18.5-24.99] 20.72 (01/10/22 9:57 AM) Blood Pressure [90-138/55-84 mm Hg] 108/ 60mm Hg (01/10/22 9:57 AM) Mode of Delivery (Oxygen) Room air (01/10/22 9:57 AM) Blood pressure sites Arm, right (01/10/22 9:57 AM) Weight Obtained Via Standing scale (01/10/22 9:57 AM) Social History Social History Type Response Smoking Status Never smoker entered on: 04/06/17 Sex
--- OUTSIDE RECORDS SUMMARY | 2024-01-01 20:31 | XMS_ITS | Continuity of Care Document ---
Author Organization [facility] Address [address] [place] [address]- Care Team Providers Care Electrician Technician Name Role Phone Georgiana WOODY, Alexx Primary Care Physician En[place] [facility] [place] Date(s): 11/12/23 - 12/12/[address] [address]- Attending Physician: AdmtrMak Admitting Physician: Admtr, Mka Referring Physician: Admtr, Ar8 Allergies, Adverse Reactions, Alerts No Known Allergies Immunizations Given and Recorded Vaccine Date Status Refusal Reason influenza virus vaccine, inactivated 07/10/23 Give n influenza virus vaccine, inactivated 1 07/07/22 Gi mahsa influenza virus vaccine, inactivated 07/20/19 Give n SARS-CoV-2 (COVID-19) mRNA BNT-162b2 vac 01/10/21 Recorded SARS-CoV-2 (COVID-19) mRNA BNT-162b2 vac 12/20/20 Recorded pneumococcal 13-valent vaccine 07/20/19 Given 1Result Comment: 59229-781-93 Medications [facility], Refills 0, Maintenance, 07/07/22 9:25:00 EDT, Supply Start Date: 07/07/22 Status: Ordered FLUoxetine 20 mg oral tablet 2 tablet = 40 mg, By Mouth, Daily, # 120 tablet, 3 Refills, Maintenance, 09/01/23 13:59:00 EST, Tablet, [facility] #[id number], Partial fill upon patient request if the [...] Primary Care Member Role: PCP Address: Address: [address] [place] [address]- Care Team Related Persons Name: OLEGARIO MALONE Address: home [address] [place] [address]
--- OUTSIDE RECORDS SUMMARY | 2024-01-01 20:31 | XMS_ITS | Continuity of Care Document ---
Author Organization [facility] Medicine Address [address] [place] [address]- Care Team Providers Care Rn Post Partum Name Role Phone Alexx Stoner MD Primary Care Physician [phone] En[place] [facility] [place] Date(s): 03/04/22 - 04/03/[address] [address]- Allergies, Adverse Reactions, Alerts No Known Allergies [...] 0 Refills, Maintenance, 03/04/22 13:51:00 EDT, Tablet, [facility] #[id number], Partial fill upon patient request if the [...]
--- OUTSIDE RECORDS SUMMARY | 2024-01-01 20:31 | XMS_ITS | Continuity of Care Document ---
Author Organization [facility] Address [address] [facility] [place] [address]- Care Team Providers Care Project Control Manager Name Role Phone Alexx Stoner MD Primary Care Physician En[place] [facility] [place] Date(s): 06/24/23 - 07/24/23 [facility] [address] [facility] [place] [address]- Attending Physician: Admtr, Mak Admitting Physician: Admtr, Ar8 Referring Physician: Admtr, Ar8 Allergies, Adverse Reactions, Alerts No Known Allergies Immunizations Given and Recorded Vaccine Date Status Refusal Reason influenza virus vaccine, inactivated 07/10/23 Give n influenza virus vaccine, inactivated 1 07/07/22 Gi mahsa influenza virus vaccine, inactivated 07/20/19 Give n SARS-CoV-2 (COVID-19) mRNA BNT-162b2 vac 01/10/21 Recorded SARS-CoV-2 (COVID-19) mRNA BNT-162b2 vac 12/20/20 Recorded pneumococcal 13-valent vaccine 07/20/19 Given 1Result Comment: 45800-724-33 Medications [facility], Refills 0, Maintenance, 07/07/22 9:25:00 EDT, Supply Start Date: 07/07/22 Status: Ordered FLUoxetine 20 mg oral tablet 1.5 tablet = 30 mg, By Mouth, Daily, # 135 tablet, 3 Refills, Maintenance, 07/10/23 10:57:00 EDT, Tablet, [facility] #[id number], Partial fill upon patient request if the [...] Role: PCP Address: Address: [address] [place] [address]- Care Team Related Persons Name: OLEGARIO MALONE Address: home [address] [place] [address]
--- OUTSIDE RECORDS SUMMARY | 2024-01-01 20:31 | XMS_ITS | Continuity of Care Document ---
Author Organization [facility] Medicine Address [address] [place] [address]- Care Team Providers Care Apartment Maintenance Name Role Phone Alexx Stoner MD Primary Care Physician [phone] [place] [facility] [place] 04/02/23 - 05/02/[address] [address]- Allergies, Adverse Reactions, Alerts No Known Allergies Immunizations Given and Recorded Vaccine Date Status Refusal Reason influenza virus vaccine, inactivated 1 07/07/22 Gi mahsa influenza virus vaccine, inactivated 07/20/19 Give n SARS-CoV-2 (COVID-19) mRNA BNT-162b2 vac 01/10/21 Recorded SARS-CoV-2 (COVID-19) mRNA BNT-162b2 vac 12/20/20 Recorded pneumococcal 13-valent vaccine 07/20/19 Given 1Result Comment: 14001-015-44 Medications [facility], Refills 0, Maintenance, 07/07/22 9:25:00 EDT, Supply Start Date: 07/07/22 Status: Ordered escitalopram 10 mg oral tablet 1 tablet = 10 mg, By Mouth, Daily, # 90 tablet, 1 Refills, Maintenance, 04/07/23 14:54:00 EDT, Tablet, [facility] #[id number], Partial fill upon patient request if the [...] Primary Care Member Role: PCP Address: Address: [address] [place] [address]- Care Team Related Persons Name: OLEGARIO MALONE Address: home [address] [place] [address]
--- OUTSIDE RECORDS SUMMARY | 2024-01-01 20:31 | XMS_ITS | Continuity of Care Document ---
Author Organization [facility] Medicine Address [address] [place] [address]- Care Team Providers Care Pulper Name Role Phone Alexx Stoner MD Primary Care Physician Encounter [facility] [place] Date(s): 05/26/23 - 06/25/[address] [address]- Allergies, Adverse Reactions, Alerts No Known Allergies Immunizations Given and Recorded Vaccine Date Status Refusal Reason influenza virus vaccine, inactivated 1 07/07/22 Gi mahsa influenza virus vaccine, inactivated 07/20/19 Give n SARS-CoV-2 (COVID-19) mRNA BNT-162b2 vac 01/10/21 Recorded SARS-CoV-2 (COVID-19) mRNA BNT-162b2 vac 12/20/20 Recorded pneumococcal 13-valent vaccine 07/20/19 Given 1Result Comment: 50488-903-96 Medications [facility], Refills 0, Maintenance, 07/07/22 9:25:00 EDT, Supply Start Date: 07/07/22 Status: Ordered FLUoxetine 20 mg oral tablet 1 tablet = 20 mg, By Mouth, Daily, # 90 tablet, 1 Refills, Maintenance, 05/14/23 14:43:00 EDT, Tablet, [facility] #[id number], Partial fill upon patient request if the [...] Care Member Role: PCP Address: Address: [address] [place] [address]- Care Team Related Persons Name: OLEGARIO MALONE Address: home [address] [place] [address]
--- OUTSIDE RECORDS SUMMARY | 2024-01-01 20:31 | XMS_ITS | Continuity of Care Document ---
Author Organization [facility] Address [address] [place] [address]- Care Team Providers Care Car Pre Cooler Name Role Phone Alexx Stoner MD Primary Care Physician [phone] [place] [facility] [place]s): 11/21/20 - 11/28/20 [facility] [address] [place] [address]- Attending Physician: Reg Lemus MD Admitting Physician: Reg Lemus MD Referring Physician: Teresa Ace NP Allergies, Adverse Reactions, Alerts Substance Reaction Severity Status NKA Active Immunizations Given and Recorded Vaccine Date Status Refusal Reason pneumococcal 13-valent vaccine 07/20/19 Given influenza virus vaccine, inactivated 07/20/19 Give n Medications Vitamin B12 1000 mcg oral tablet 1 tablet = 1,000 mcg, By Mouth, Daily, # 30 tablet, 11 Refills, Maintenance, 07/06/20 10:58:00 EDT,Tablet, [facility] #[id number], 173, cm, 07/20/19 10:28:00 EDT, Height, 57.9, kg, 09/29/18 9:35:00 EST, Dry Weight Start Date: 07/06/20 Status: Ordered Xarelto 20 mg oral tablet 1 tablet = 20 mg, By Mouth, Daily at supper, # 30 tablet, 0 Refills, Maintenance, 11/22/20 13:25:00EST, Tablet, [facility] #[id number], Partial fill upon patient request if the [...] oldest [Reference Range]: 1 Height 173 cm (11/21/20 10:32 AM) Weight 62.4 kg (11/21/20 10:32 AM) Oxygen Saturation [94-100 %] 100 % (11/21/20 10:32 AM) Pulse Rate [55-90 bpm] 42 bpm *L* (11/21/20 10:32 AM) Body Mass Index [18.5-24.99] 20.85 (11/21/20 10:32 AM) Blood Pressure [90-138/55-84 mm Hg] 102/ 59mm Hg (11/21/20 10:32 AM) Blood pressure sites Arm, left (11/21/20 10:32 AM) Weight Obtained Via Standing scale (11/21/20 10:32 AM) Social History Social History Type Response Smoking Status Never smoker entered on: 04/06/17 Sex
--- OUTSIDE RECORDS SUMMARY | 2024-01-01 20:31 | XMS_ITS | Continuity of Care Document ---
Author Organization [facility] Medicine Address [address] [place] [address]- Care Team Providers Care Supervisor Paper Testing Name Role Phone Alexx Stoner MD Primary Care Physician En[place] [facility] [place] Date(s): 07/10/23 - 08/09/[address] [address] Attending Physician: Mak Vazquez Admitting Physician: AdmtrMak Referring Physician: Admtr, Ar8 [...] pneumococcal 13-valent vaccine 07/20/19 Given 1Result Comment: 82016-280-12 Medications [facility], Refills 0, Maintenance, 07/07/22 9:25:00 EDT, Supply Start Date: 07/07/22 Status: Ordered FLUoxetine 20 mg oral tablet 1.5 tablet = 30 mg, By Mouth, Daily, # 135 tablet, 3 Refills, Maintenance, 07/10/23 10:57:00 EDT, Tablet, [facility] #[id number], Partial fill upon patient request if the [...] Primary Care Member Role: PCP Address: Address: [address] [place] [address]- Care Team Related Persons Name: OLEGARIO MALONE Address: home [address] [place] [address]
--- OUTSIDE RECORDS SUMMARY | 2024-01-01 20:31 | XMS_ITS | Continuity of Care Document ---
Author Organization [facility] Address [address] [place] [address]- Care Team Providers Care Dredge Pipeman Name Role Phone Alexx Stoner MD Primary Care Physician Encounter [facility] [place] Date(s): 12/19/20 - 12/26/20 [facility] [address] [place] [address]- Attending Physician: Reg Lemus MD Admitting Physician: [...] tablet, 11 Refills, Maintenance, 07/06/20 10:58:00 EDT,Tablet, [id number], 173, cm, 07/20/19 10:28:00 EDT, Height, 57.9, kg, 09/29/18 9:35:00 EST, Dry Weight Start Date: 07/06/20 Status: Ordered Xarelto 20 mg oral tablet 1 tablet = 20 mg, By Mouth, Daily at supper, # 30 tablet, 0 Refills, Maintenance, 11/22/20 13:25:00EST, Tablet, [id number], Partial fill upon patient request if the [...]
[2024-01-01 21:04] VITALS: BMI 16.7
[2024-01-01 21:46] VITALS: BP 101/50; PULSE 80; RESP 16; TEMP 36.1; O2SAT 95
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
[2024-01-02 08:00] VITALS: BP 114/79; PULSE 76; RESP 18; TEMP 36.6; O2SAT 95
[2024-01-02 08:16] LABS: Estimated Average Glucose 108 mg/dL; Hemoglobin A1c % 5.4 % (<6.0)
[2024-01-02] MEDS: Folic Acid 1 MG TABLET PO (08:17)
[2024-01-02 08:23] LABS: Alanine Aminotransferase 35 U/L (0-40); Albumin Level 3.3 g/dL (3.5-5.0); Alkaline Phosphatase 68 U/L (39-117); Anion Gap 13 (12-20); Aspartate Amino Transferase 26 U/L (5-37); Bilirubin Total 0.4 mg/dL (0.0-1.0); Blood Urea Nitrogen 19 mg/dL (9-16); Calcium 8.7 mg/dL (8.4-10.2); Carbon Dioxide 25 mmol/L (22-29); Chloride 106 mmol/L (96-108); Cholesterol 165 mg/dL (<200); Creatinine Clr Calc Pharmacy 59.1; Estimated Glomerular Filt Rate > 60; Glucose Fasting 88 mg/dL (60-99); HDL Cholesterol 38 mg/dL (>40); LDL Cholesterol Calculated 111 mg/dL (<100); Potassium 3.9 mmol/L (3.3-5.1); Sodium 140 mmol/L (135-145); Total Protein 6.4 g/dL (6.5-8.0); Triglycerides 80 mg/dL (<150)
--- NOTE | 2024-01-02 11:19 | HO.PSYADMNOT ---
HPI Date of Service: 01/02/24 Chief Complaint: Alzheimers Disease Sources of Information: patient interviewed, chart reviewed and crisis/core team assessment reviewed HPI Healthcare Proxy: Yes Narrative: 78-year-old male, direct admission from [facility]. Brought there in the context of behaving inappropriately with his daughter in-law and then being in his granddaughter's bedroom which led to bring brought to the hospital. There is established dementia as per transfer records. Patient reports being here to help organized his mind. Is aware that it is December, the day of the week and the year. Did not know the name of the hospital he was in or the location. Was aware that he was at [facility] recently. Reports not having recollection around ED or admission circumstances. Noted legal paperwork in chart that has an assigned healthcare proxy that is his son Rachna Pastor) Suzanne [phone]. patient remembered son's name. Could not remember his telephone number. Reports being unable to name his grand children or their ages. denies depression. Denies SI or HI. No evidence of paranoia or hallucinations. No aggression. Attempted to explain conditional voluntary, 3 day notice and Snowden warning. Very difficult time retaining information and later stated his understanding of a 3 day notice was You examine me again so I dont communciate any infections to the public . Buffing And Sueding Machine Operator left message for his son and will invoke healthcare proxy as patient has clear cognitive impairment, does not understand conditional voluntary details, treatment recommendations etc.. Past Psychiatric History: Unclear. Denied depression or Suicide attempts. Medical Evaluation Reviewed: Yes [facility] Social History: Reports living with his partner of 2 years, Olga. Noted legal paperwork in chart that has an assigned healthcare proxy that is his son Rachna Palacios (Kim) [phone]. Reports having 4 children. Unsure how many grandchildren or other names. 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 No legal issues. Diagnostics Vital Signs (24Hr): Vital Signs - 24 hr 01/01/24 21:46 01/02/24 08:00 Temperature 96.9 F 97.9 F Pulse Rate 80 76 Respiratory Rate 16 18 Blood Pressure 101/50 L 114/79 Pulse Oximetry 95 95 Oxygen Delivery Method Room Air Room Air BMI result Body Mass Index 16.7 Labs 01/02/24 07:18 Labs: Laboratory Results - last 48 hr 01/02/24 01/02/24 07:18 07:19 Sodium 140 Potassium 3.9 Chloride 106 Carbon Dioxide 25 Anion Gap 13 BUN 19 H Creatinine 0.79 Estim Creat Clear Calc 59.1 Estimated GFR > 60 Fasting Glucose 88 Estimat Average Glucose 108 Hemoglobin A1c % 5.4 Calcium 8.7 Total Bilirubin 0.4 AST 26 ALT 35 Alkaline Phosphatase 68 Total Protein 6.4 L Albumin 3.3 L Triglycerides 80 Cholesterol 165 LDL Cholesterol, Calc 111 H HDL Cholesterol 38 L Meds/Allergies Meds Home Medications ?Medication ?Instructions ?Recorded ?Confirmed ?Type fluoxetine 40 mg PO DAILY 01/01/24 01/01/24 History folic acid 1 mg PO DAILY 01/01/24 01/01/24 History melatonin 3 mg PO BEDTIME 01/01/24 01/01/24 History Allergies Allergies Allergy/AdvReac Type Severity Reaction Status Date / Time No Known Allergies Allergy Verified 01/01/24 21:03 Mental Status Exam Mental Status Exam Narrative: Pleasant. Engaged. Casually dressed and resented. Fair hygiene. Clear cognitive impairment. Difficulty with location, day of the week, recent events. Unable to remember names of his grandchildren or how many. Denied depression. Denied SI or HI. No agitation. No clear psychosis. Insight and judgment poor Assessment & Plan Assessment & Plan (1) Dementia: Status: Acute Code(s): F03.90 - Unspecified dementia, unspecified severity, without behavioral disturbance, psychotic disturbance, mood disturbance, and anxiety Plan There is a documented history of dementia and transfer paperwork. Unclear past psychiatric history in terms of admissions, medications, safety, behaviors etc.. Buffing And S[employer]ing Machine Operator left message for his son and will invoke healthcare proxy as patient has clear cognitive impairment, does not understand conditional voluntary details, treatment recommendations etc.. Patient educated on: other (attempted. HCP invoked) Guardian/Caregiver educated on: other (message left for HCP) Informed Consent: does not understand Reason for continued inpatient stay Substantial Risk for: harm to others and inability to function Statement Statement: I have reviewed the history and physical and performed a pertinent examination on my patient. No changes have occurred unless specified. If the History and Physical was not performed prior to admission, the Hospitalist's service will be consulted for completing the admission physical. Time Spent With Patient Time: Total time managing care of this patient today ____ minutes.
--- NOTE | 2024-01-02 11:36 | HO.PM.IMCN ---
History of Present Illness Data of Consult Service Date: 01/02/24 Primary Care Provider: COLTON LAMAR MD [facility] Reason for consult: Admission H&P Pt is a 78-year-old male with a PMH significant for?Alzheimer's dementia with behavioral disturbances who is admitted to [facility] for inappropriate/aggressive sexual behaviors toward his son's . Patient was also found in his granddaughter's room at night which led to being transported to medical facility for further evaluation. Medical consult for admission H&P. ?Pt seen and evaluated in his room. Denies any significant PMH and states is not on any home prescriptions, though notes does not follow up regularly with PCP. Unclear when last checkup was. Reports no acute medical comlaints. Denies chest pain/pressure, palpitations. No shortness of breath. Denies fever, chills, nausea, vomiting, abdominal pain. No headache or acute vision changes. Labs reviewed, grossly unremarkable. Review of Systems Review of Systems: Patient has no acute medical complaints at this time [facility] Social History Currently Displaying Signs/Symptoms of Drug Intoxication Withdrawal: No Advance Directives: No Advance Directives Information Provided: Yes Do you have thoughts of harming others: None Do you have a plan to hurt others: No Plan Meds Allergies Allergy/AdvReac Type Severity Reaction Status Date / Time No Known Allergies Allergy Verified 01/01/24 21:03 Active Medications: Current Medications Acetaminophen (Acetaminophen 325 Mg Tablet) 650 mg PO Q6H PRN PRN Reason: Headache/Pain Mild Scale (1-3) Al Hydroxide/Mg Hydroxide (Magnesium Hydrox/Alum Hydrox 30 Ml Oral.Susp) 30 ml PO Q6H PRN PRN Reason: Heartburn/Nausea Folic Acid (Folic Acid 1 Mg Tablet) 1 mg PO DAILY GRICELDA Last Admin: 01/02/24 08:17 Dose: 1 mg Magnesium Hydroxide (Milk Of Magnesia 30 Ml Oral.Susp) 30 ml PO DAILY PRN PRN Reason: Constipation Olanzapine (Olanzapine 2.5 Mg Tablet) 2.5 mg PO TID PRN PRN Reason: agitation Trazodone HCl (Trazodone Hcl 25 Mg Halftab) 25 mg PO BEDTIME MRX1 PRN PRN Reason: Insomnia Home Medications ?Medication ?Instructions ?Recorded ?Confirmed ?Last Taken ?Type fluoxetine 40 mg PO DAILY 01/01/24 01/01/24 Unknown History folic acid 1 mg PO DAILY 01/01/24 01/01/24 Unknown History melatonin 3 mg PO BEDTIME 01/01/24 01/01/24 Unknown History Physical Exam Vital Signs and Narrative: Vital Signs: Last Vital Signs Temp 97.9 F 01/02/24 08:00 Pulse 76 01/02/24 08:00 Resp 18 01/02/24 08:00 BP 114/79 01/02/24 08:00 Pulse Ox 95 01/02/24 08:00 O2 Del Method Room Air 01/02/24 08:00 BMI result Body Mass Index 16.7 General: AOx3, no acute distress Resp: CTA bilaterally CVS: S1, S2, RRR GI: +BS, NT, no distention Skin: Warm, dry Neuro: Cranial nerves II-XII grossly intact bilaterally. Motor grossly intact bilaterally. Mild upper extremity resting tremors noted. Extremities: No edema Psych: Appropriate affect Results Labs 01/02/24 07:18 Labs: Laboratory Results - last 24 hr 01/02/24 01/02/24 07:18 07:19 Anion Gap 13 Estim Creat Clear Calc 59.1 Estimated GFR > 60 Fasting Glucose 88 Estimat Average Glucose 108 Hemoglobin A1c % 5.4 Calcium 8.7 Total Bilirubin 0.4 AST 26 ALT 35 Alkaline Phosphatase 68 Total Protein 6.4 L Albumin 3.3 L Triglycerides 80 Cholesterol 165 LDL Cholesterol, Calc 111 H HDL Cholesterol 38 L Assessment and Plan (1) Medical clearance for psychiatric admission: Status: Acute Plan Pt is a 78-year-old male with a PMH significant for?Alzheimer's dementia with behavioral disturbances who is admitted to [facility] for inappropriate/aggressive sexual behaviors toward his son's . Patient was also found in his granddaughter's room at night which led to being transported to medical facility for further evaluation. Medical consult for admission H&P. Mood disorder Plan as per psychiatry Pt otherwise has no acute medical complaints or chronic medical conditions. Thank you for allowing us to participate in the care of this patient. Signing off at this time. Please re-consult if any acute complaints or issues arise.
[2024-01-02 18:00] VITALS: BP 113/59; PULSE 90; RESP 18; TEMP 36.7; O2SAT 95
[2024-01-03 08:00] VITALS: BP 119/66; PULSE 63; RESP 18; TEMP 36.8; O2SAT 96
[2024-01-03] MEDS: Folic Acid 1 MG TABLET PO (08:21)
--- NOTE | 2024-01-03 09:56 | P.PNPSI_ITS ---
Subjective Subjective Date of Service: 01/03/24 Reason For Visit: Alzheimers Disease Subjective Notes: Section 12B Healthcare Proxy: Yes (needs to be invoked with HCP (called x 2)) Medication Compliance: Yes Side effects from medications: No Attending Groups: Yes Review of Systems Acute medical concerns: No Diagnostics Vital Signs (24Hr): Vital Signs - 24 hr 01/02/24 18:00 Temperature 98.1 F Pulse Rate 90 Respiratory Rate 18 Blood Pressure 113/59 L Pulse Oximetry 95 Oxygen Delivery Method Room Air BMI result Body Mass Index 16.7 Labs 01/02/24 07:18 Labs: Laboratory Results - last 48 hr 01/02/24 01/02/24 07:18 07:19 Sodium 140 Potassium 3.9 Chloride 106 Carbon Dioxide 25 Anion Gap 13 BUN 19 H Creatinine 0.79 Estim Creat Clear Calc 59.1 Estimated GFR > 60 Fasting Glucose 88 Estimat Average Glucose 108 Hemoglobin A1c % 5.4 Calcium 8.7 Total Bilirubin 0.4 AST 26 ALT 35 Alkaline Phosphatase 68 Total Protein 6.4 L Albumin 3.3 L Triglycerides 80 Cholesterol 165 LDL Cholesterol, Calc 111 H HDL Cholesterol 38 L Medications Medications Current Medications Acetaminophen (Acetaminophen 325 Mg Tablet) 650 mg PO Q6H PRN PRN Reason: Headache/Pain Mild Scale (1-3) Al Hydroxide/Mg Hydroxide (Magnesium Hydrox/Alum Hydrox 30 Ml Oral.Susp) 30 ml PO Q6H PRN PRN Reason: Heartburn/Nausea Folic Acid (Folic Acid 1 Mg Tablet) 1 mg PO DAILY GRICELDA Last Admin: 01/03/24 08:21 Dose: 1 mg Magnesium Hydroxide (Milk Of Magnesia 30 Ml Oral.Susp) 30 ml PO DAILY PRN PRN Reason: Constipation Olanzapine (Olanzapine 2.5 Mg Tablet) 2.5 mg PO TID PRN PRN Reason: agitation Trazodone HCl (Trazodone Hcl 25 Mg Halftab) 25 mg PO BEDTIME MRX1 PRN PRN Reason: Insomnia Allergies Allergies Allergy/AdvReac Type Severity Reaction Status Date / Time No Known Allergies Allergy Verified 01/01/24 21:03 Assessment & Plan Assessment & Plan (1) Dementia: Status: Acute Code(s): F03.90 - Unspecified dementia, unspecified severity, without behavioral disturbance, psychotic disturbance, mood disturbance, and anxiety Plan There is a documented history of dementia and transfer paperwork. Unclear past psychiatric history in terms of admissions, medications, safety, behaviors etc.. District Scout Executive left message for his son and will invoke healthcare proxy as patient has clear cognitive impairment, does not understand conditional voluntary details, treatment recommendations etc.. Time Spent With Patient Time: Total time managing care of this patient today ____ minutes.
--- NOTE | 2024-01-03 10:15 | P.PNPSI_ITS ---
Subjective Subjective Date of Service: 01/03/24 Reason For Visit: Alzheimers Disease Subjective Notes: Section 12B Healthcare Proxy: Yes (reaching out to invoke) Interim History: Patient does not have understanding of CV, 3 day notice, clear impairment secondary to dementia. Is not objecting to admission and defers to son (is HCP). Left VM for HCP to invoke same and complete CV. No response. While awaiting same, will complete S12, with view to invoking HCP and completing CV with HCP. Diagnostics Vital Signs (24Hr): Vital Signs - 24 hr 01/02/24 18:00 01/03/24 08:00 Temperature 98.1 F 98.2 F Pulse Rate 90 63 Respiratory Rate 18 18 Blood Pressure 113/59 L 119/66 Pulse Oximetry 95 96 Oxygen Delivery Method Room Air Room Air BMI result Body Mass Index 16.7 Labs 01/02/24 07:18 Labs: Laboratory Results - last 48 hr 01/02/24 01/02/24 07:18 07:19 Sodium 140 Potassium 3.9 Chloride 106 Carbon Dioxide 25 Anion Gap 13 BUN 19 H Creatinine 0.79 Estim Creat Clear Calc 59.1 Estimated GFR > 60 Fasting Glucose 88 Estimat Average Glucose 108 Hemoglobin A1c % 5.4 Calcium 8.7 Total Bilirubin 0.4 AST 26 ALT 35 Alkaline Phosphatase 68 Total Protein 6.4 L Albumin 3.3 L Triglycerides 80 Cholesterol 165 LDL Cholesterol, Calc 111 H HDL Cholesterol 38 L Medications Medications Current Medications Acetaminophen (Acetaminophen 325 Mg Tablet) 650 mg PO Q6H PRN PRN Reason: Headache/Pain Mild Scale (1-3) Al Hydroxide/Mg Hydroxide (Magnesium Hydrox/Alum Hydrox 30 Ml Oral.Susp) 30 ml PO Q6H PRN PRN Reason: Heartburn/Nausea Folic Acid (Folic Acid 1 Mg Tablet) 1 mg PO DAILY [facility] Last Admin: 01/03/24 08:21 Dose: 1 mg Magnesium Hydroxide (Milk Of Magnesia 30 Ml Oral.Susp) 30 ml PO DAILY PRN PRN Reason: Constipation Olanzapine (Olanzapine 2.5 Mg Tablet) 2.5 mg PO TID PRN PRN Reason: agitation Trazodone HCl (Trazodone Hcl 25 Mg Halftab) 25 mg PO BEDTIME MRX1 PRN PRN Reason: Insomnia Allergies Allergies Allergy/AdvReac Type Severity Reaction Status Date / Time No Known Allergies Allergy Verified 04/12/24 21:03 Assessment & Plan Assessment & Plan (1) Dementia: Status: Acute Code(s): F03.90 - Unspecified dementia, unspecified severity, without behavioral disturbance, psychotic disturbance, mood disturbance, and anxiety Time Spent With Patient Time: Total time managing care of this patient today ____ minutes.
--- NOTE | 2024-01-03 11:38 | P.PNPSI_ITS ---
Subjective Subjective Date of Service: 01/03/24 Reason For Visit: Alzheimers Disease Subjective Notes: Section 12B Healthcare Proxy: Yes (Process of invoking- reached out to HCP x 2) Interim History: met with patient. Discussed with Nursing. Overall pleasant. No management issues. In the milieu. Attending groups. Peer cognitive impairment consistent with dementia. No agitation or psychosis. Attending Groups: Yes Review of Systems Acute medical concerns: No Review of Systems Review of Systems nothing acute Mental Status Exam Mental Status Exam Narrative: Pleasant. Engaged. Casually dressed and presented. Fair hygiene. Clear cognitive impairment. Denied depression. Denied SI or HI. No agitation. No clear psychosis. Insight and judgment poor Diagnostics Vital Signs (24Hr): Vital Signs - 24 hr 01/02/24 18:00 01/03/24 08:00 Temperature 98.1 F 98.2 F Pulse Rate 90 63 Respiratory Rate 18 18 Blood Pressure 113/59 L 119/66 Pulse Oximetry 95 96 Oxygen Delivery Method Room Air Room Air BMI result Body Mass Index 16.7 Labs 01/02/24 07:18 Labs: Laboratory Results - last 48 hr 01/02/24 01/02/24 07:18 07:19 Sodium 140 Potassium 3.9 Chloride 106 Carbon Dioxide 25 Anion Gap 13 BUN 19 H Creatinine 0.79 Estim Creat Clear Calc 59.1 Estimated GFR > 60 Fasting Glucose 88 Estimat Average Glucose 108 Hemoglobin A1c % 5.4 Calcium 8.7 Total Bilirubin 0.4 AST 26 ALT 35 Alkaline Phosphatase 68 Total Protein 6.4 L Albumin 3.3 L Triglycerides 80 Cholesterol 165 LDL Cholesterol, Calc 111 H HDL Cholesterol 38 L Medications Medications Current Medications Acetaminophen (Acetaminophen 325 Mg Tablet) 650 mg PO Q6H PRN PRN Reason: Headache/Pain Mild Scale (1-3) Al Hydroxide/Mg Hydroxide (Magnesium Hydrox/Alum Hydrox 30 Ml Oral.Susp) 30 ml PO Q6H PRN PRN Reason: Heartburn/Nausea Folic Acid (Folic Acid 1 Mg Tablet) 1 mg PO DAILY GRICELDA Last Admin: 01/03/24 08:21 Dose: 1 mg Magnesium Hydroxide (Milk Of Magnesia 30 Ml Oral.Susp) 30 ml PO DAILY PRN PRN Reason: Constipation Olanzapine (Olanzapine 2.5 Mg Tablet) 2.5 mg PO TID PRN PRN Reason: agitation Trazodone HCl (Trazodone Hcl 25 Mg Halftab) 25 mg PO BEDTIME MRX1 PRN PRN Reason: Insomnia Allergies Allergies Allergy/AdvReac Type Severity Reaction Status Date / Time No Known Allergies Allergy Verified 01/01/24 21:03 Assessment & Plan Assessment & Plan (1) Dementia: Status: Acute Code(s): F03.90 - Unspecified dementia, unspecified severity, without behavioral disturbance, psychotic disturbance, mood disturbance, and anxiety Plan There is a documented history of dementia and transfer paperwork. Unclear past psychiatric history in terms of admissions, medications, safety, behaviors etc.. Aviation Operations Specialist left message for his son with plan to invoke healthcare proxy as patient has clear cognitive impairment (due to dementia), does not understand conditional voluntary details, treatment recommendations etc.. Is not objecting to admission and defers to son (is HCP). Left VM for HCP to invoke same and complete CV. No response. While awaiting same, will complete S12, with view to invoking HCP and completing CV with HCP. 01/02: left another VM for son (HCP) ref legal status and collateral to inform treatment planning. Primary team can follow up same. Reason for continued inpatient stay Substantial Risk for: inability to function Time Spent With Patient Time: Total time managing care of this patient today ____ minutes.
[2024-01-03 19:50] VITALS: BP 91/54; PULSE 65; RESP 16; TEMP 36.2; O2SAT 98
--- NOTE | 2024-01-04 08:31 | P.PNPSI_ITS ---
Subjective Subjective Date of Service: 01/04/24 Reason For Visit: Alzheimers Disease Subjective Notes: Conditional Voluntary Interim History: Pt slept most of the night. No behavioral concerns. He reports he is doing well. He is attending groups. No SI/HI. Immodium given one time for loose stools. Review of Systems Review of Systems nothing acute Yes all other systems are reviewed and are negative Mental Status Exam Mental Status Exam Narrative: Pleasant. Engaged. Casually dressed and presented. Fair hygiene. Clear cognitive impairment. Denied depression. Denied SI or HI. No agitation. No clear psychosis. Insight and judgment poor Diagnostics Vital Signs (24Hr): Vital Signs - 24 hr 01/03/24 19:50 Temperature 97.1 F Pulse Rate 65 Respiratory Rate 16 Blood Pressure 91/54 L Pulse Oximetry 98 Oxygen Delivery Method Room Air BMI result Body Mass Index 16.7 Labs 01/02/24 07:18 Medications Medications Current Medications Acetaminophen (Acetaminophen 325 Mg Tablet) 650 mg PO Q6H PRN PRN Reason: Headache/Pain Mild Scale (1-3) Al Hydroxide/Mg Hydroxide (Magnesium Hydrox/Alum Hydrox 30 Ml Oral.Susp) 30 ml PO Q6H PRN PRN Reason: Heartburn/Nausea Folic Acid (Folic Acid 1 Mg Tablet) 1 mg PO DAILY GRICELDA Last Admin: 01/03/24 08:21 Dose: 1 mg Magnesium Hydroxide (Milk Of Magnesia 30 Ml Oral.Susp) 30 ml PO DAILY PRN PRN Reason: Constipation Olanzapine (Olanzapine 2.5 Mg Tablet) 2.5 mg PO TID PRN PRN Reason: agitation Trazodone HCl (Trazodone Hcl 25 Mg Halftab) 25 mg PO BEDTIME MRX1 PRN PRN Reason: Insomnia Allergies Allergies Allergy/AdvReac Type Severity Reaction Status Date / Time No Known Allergies Allergy Verified 01/01/24 21:03 Assessment & Plan Assessment & Plan (1) Dementia: Status: Acute Code(s): F03.90 - Unspecified dementia, unspecified severity, without behavioral disturbance, psychotic disturbance, mood disturbance, and anxiety Plan There is a documented history of dementia and transfer paperwork. Unclear past psychiatric history in terms of admissions, medications, safety, behaviors etc.. Railroad Accountant left message for his son with plan to invoke healthcare proxy as patient has clear cognitive impairment (due to dementia), does not understand conditional voluntary details, treatment recommendations etc.. Is not objecting to admission and defers to son (is HCP). Left VM for HCP to invoke same and complete CV. No response. While awaiting same, will complete S12, with view to invoking HCP and completing CV with HCP. 01/02: left another VM for son (HCP) ref legal status and collateral to inform treatment planning. Primary team can follow up same. 01/03 continue tx. Reason for continued inpatient stay Substantial Risk for: inability to function Time Spent With Patient Time: Total time managing care of this patient today ____ minutes.
[2024-01-04 09:17] VITALS: BP 117/62; PULSE 74; RESP 18; TEMP 36.4; O2SAT 97
[2024-01-04] MEDS: Folic Acid 1 MG TABLET PO (09:40)
[2024-01-04] MEDS: Loperamide HCl 2 MG CAPSULE PO (09:40)
--- NOTE | 2024-01-04 11:56 | PC.NURSE ---
Marcial reported diarrhea x the last 2 days but he was unsure of how many episodes. Anay Porras NP notified and Imodium 2mg x 1 ordered and administered.
[2024-01-04 13:58] VITALS: BMI 16.7
[2024-01-04 19:40] VITALS: BP 108/59; PULSE 62; RESP 16; TEMP 36.6; O2SAT 98
[2024-01-05] MEDS: Folic Acid 1 MG TABLET PO (08:41)
[2024-01-05 08:53] VITALS: BP 111/71; PULSE 87; RESP 18; TEMP 36.7; O2SAT 95
--- NOTE | 2024-01-05 16:33 | HO.PSYCHPN ---
Subjective Subjective Date of Service: 01/05/24 Reason For Visit: Alzheimers Disease Subjective Notes: Conditional Voluntary Interim History: The nursing staff reported the patient had been confused but easily redirectable. He keeps to himself and he has been pleasant on approach. The occupational therapist reported that he scored 3.4 on the Adrian test and 14/30 on the [place]. On interview the patient was pleasantly confused, able to understand that he was in the hospital and he agreed to start Aricept tonight for his memory. Mental Status Exam Mental Status Exam Patient Appearance: Appropriate Patient Orientation: Person and Situation Level of Consciousness: Awake and Appropriate Patient Behavior: Guarded and Passive Mood Description: Withdrawn Affect Description: Constricted Patient Cognition Impaired: Yes Ability to Follow Directions: Good Speech Pattern: Clear Hallucinations: None Delusions: Not Present Thought Process: Distracted and Slowed Thinking Thought Content: positive for [place] and positive for Poverty of Content Judgement: Poor Diagnostics Vital Signs (24Hr): Vital Signs - 24 hr 01/04/24 19:40 01/05/24 08:53 Temperature 97.9 F 98.1 F Pulse Rate 62 87 Respiratory Rate 16 18 Blood Pressure 108/59 L 111/71 Pulse Oximetry 98 95 Oxygen Delivery Method Room Air Room Air BMI result Body Mass Index 16.7 Labs 01/02/24 07:18 Medications Medications Current Medications Acetaminophen (Acetaminophen 325 Mg Tablet) 650 mg PO Q6H PRN PRN Reason: Headache/Pain Mild Scale (1-3) Al Hydroxide/Mg Hydroxide (Magnesium Hydrox/Alum Hydrox 30 Ml Oral.Susp) 30 ml PO Q6H PRN PRN Reason: Heartburn/Nausea Folic Acid (Folic Acid 1 Mg Tablet) 1 mg PO DAILY GRICELDA Last Admin: 01/05/24 08:41 Dose: 1 mg Magnesium Hydroxide (Milk Of Magnesia 30 Ml Oral.Susp) 30 ml PO DAILY PRN PRN Reason: Constipation Olanzapine (Olanzapine 2.5 Mg Tablet) 2.5 mg PO TID PRN PRN Reason: agitation Trazodone HCl (Trazodone Hcl 25 Mg Halftab) 25 mg PO BEDTIME MRX1 PRN PRN Reason: Insomnia Allergies Allergies Allergy/AdvReac Type Severity Reaction Status Date / Time No Known Allergies Allergy Verified 01/01/24 21:03 Assessment & Plan Assessment & Plan (1) Dementia: Status: Acute Code(s): F03.90 - Unspecified dementia, unspecified severity, without behavioral disturbance, psychotic disturbance, mood disturbance, and anxiety Plan There is a documented history of dementia and transfer paperwork. Unclear past psychiatric history in terms of admissions, medications, safety, behaviors etc.. Brake Repairer Bus left message for his son with plan to invoke healthcare proxy as patient has clear cognitive impairment (due to dementia), does not understand conditional voluntary details, treatment recommendations etc.. Is not objecting to admission and defers to son (is HCP). Left VM for HCP to invoke same and complete CV. No response. While awaiting same, will complete S12, with view to invoking HCP and completing CV with HCP. Plan 1. Gather collateral information. 2. Start Aricept 5 mg p.o. q.h.s. to target dementia. We will try to go up to 10 mg and then add Namenda since he is [place] is 14/30 and his Adrian test is 3.4. 4. Continue with medical treatment Reason for continued inpatient stay Substantial Risk for: inability to function, rapid decompensation and med/psych decompensation Time Spent With Patient Time: Total time managing care of this patient today __20__ minutes.
[2024-01-05] MEDS: Donepezil HCl 5 MG TABLET PO (20:23)
[2024-01-05 20:29] VITALS: BP 114/63; PULSE 70; RESP 17; TEMP 36.8; O2SAT 96
[2024-01-06 08:21] VITALS: BP 105/69; PULSE 72; RESP 18; TEMP 36.2; O2SAT 95
[2024-01-06] MEDS: Folic Acid 1 MG TABLET PO (08:25)
--- NOTE | 2024-01-06 13:19 | P.PNPSI_ITS ---
Subjective Subjective Date of Service: 01/06/24 Reason For Visit: Alzheimers Disease Subjective Notes: Conditional Voluntary Healthcare Proxy: Yes Interim History: The nursing staff reported the patient had been compliant with treatment he has good appetite. He participate in the fresh air break. The occupational therapist reported the patient is happily demented and participate in groups. He scored 3.2 on the Adrian test and 14/30 on the [place]. The transition social worker is trying to get contact with his son. On interview the patient denies new symptoms pleasantly confused, easily redirectable. Mental Status Exam Mental Status Exam Patient Appearance: Appropriate Patient Orientation: Person and Situation Level of Consciousness: Awake and Appropriate Patient Behavior: Guarded and Passive Mood Description: Withdrawn Affect Description: Constricted Patient Cognition Impaired: Yes Ability to Follow Directions: Good Speech Pattern: Clear Hallucinations: None Delusions: Not Present Thought Process: Distracted and Slowed Thinking Thought Content: positive for [place] and positive for Poverty of Content Judgement: Poor Diagnostics Vital Signs (24Hr): Vital Signs - 24 hr 01/05/24 20:29 01/06/24 08:21 Temperature 98.2 F 97.1 F Pulse Rate 70 72 Respiratory Rate 17 18 Blood Pressure 114/63 105/69 Pulse Oximetry 96 95 Oxygen Delivery Method Room Air Room Air BMI result Body Mass Index 16.7 Labs 01/02/24 07:18 Medications Medications Current Medications Acetaminophen (Acetaminophen 325 Mg Tablet) 650 mg PO Q6H PRN PRN Reason: Headache/Pain Mild Scale (1-3) Al Hydroxide/Mg Hydroxide (Magnesium Hydrox/Alum Hydrox 30 Ml Oral.Susp) 30 ml PO Q6H PRN PRN Reason: Heartburn/Nausea Donepezil HCl (Donepezil Hcl 5 Mg Tablet) 5 mg PO BEDTIME GRICELDA Last Admin: 01/05/24 20:23 Dose: 5 mg Folic Acid (Folic Acid 1 Mg Tablet) 1 mg PO DAILY [facility] Last Admin: 01/06/24 08:25 Dose: 1 mg Magnesium Hydroxide (Milk Of Magnesia 30 Ml Oral.Susp) 30 ml PO DAILY PRN PRN Reason: Constipation Olanzapine (Olanzapine 2.5 Mg Tablet) 2.5 mg PO TID PRN PRN Reason: agitation Trazodone HCl (Trazodone Hcl 25 Mg Halftab) 25 mg PO BEDTIME MRX1 PRN PRN Reason: Insomnia Allergies Allergies Allergy/AdvReac Type Severity Reaction Status Date / Time No Known Allergies Allergy Verified 01/01/24 21:03 Assessment & Plan Assessment & Plan (1) Dementia: Status: Acute Code(s): F03.90 - Unspecified dementia, unspecified severity, without behavioral disturbance, psychotic disturbance, mood disturbance, and anxiety Plan There is a documented history of dementia and transfer paperwork. Unclear past psychiatric history in terms of admissions, medications, safety, behaviors etc.. Manufacturing Millwright left message for his son with plan to invoke healthcare proxy as patient has clear cognitive impairment (due to dementia), does not understand conditional voluntary details, treatment recommendations etc.. Is not objecting to admission and defers to son (is HCP). Left VM for HCP to invoke same and complete CV. No response. While awaiting same, will complete S12, with view to invoking HCP and completing CV with HCP. Plan 1. Gather collateral information. 2. Start Aricept 5 mg p.o. q.h.s. to target dementia. We will try to go up to 10 mg and then add Namenda since he is [place] is 14/30 and his Adrian test is 3.4. 4. Continue with medical treatment. Reason for continued inpatient stay Substantial Risk for: inability to function, rapid decompensation and med/psych decompensation Time Spent With Patient Time: Total time managing care of this patient today _20___ minutes.
[2024-01-06 20:53] VITALS: BP 99/57; PULSE 69; RESP 17; TEMP 36.3; O2SAT 95
[2024-01-06] MEDS: Donepezil HCl 5 MG TABLET PO (20:55)
[2024-01-07 08:00] VITALS: BP 132/73; PULSE 68; RESP 18; TEMP 36.6; O2SAT 95
[2024-01-07] MEDS: Folic Acid 1 MG TABLET PO (09:07)
--- NOTE | 2024-01-07 12:33 | P.PNPSI_ITS ---
Subjective Subjective Date of Service: 01/07/24 Reason For Visit: Alzheimers Disease Subjective Notes: Conditional Voluntary Interim History: The nursing staff reported the patient denies depression and anxiety he was compliant with medications. He slept 6 hours. On interview the patient is pleasantly confused we are increasing his Aricept up to 10 mg p.o. q.h.s.. Mental Status Exam Mental Status Exam Patient Appearance: Appropriate Patient Orientation: Person and Situation Level of Consciousness: Awake and Appropriate Patient Behavior: Guarded and Passive Mood Description: Calm Affect Description: Constricted Patient Cognition Impaired: Yes Ability to Follow Directions: Good Speech Pattern: Clear Hallucinations: None Delusions: Not Present Thought Process: Distracted and Evasive Thought Content: positive for [place] and positive for Poverty of Content Judgement: Fair Diagnostics Vital Signs (24Hr): Vital Signs - 24 hr 01/06/24 20:53 01/07/24 08:00 Temperature 97.4 F 97.9 F Pulse Rate 69 68 Respiratory Rate 17 18 Blood Pressure 99/57 L 132/73 Pulse Oximetry 95 95 Oxygen Delivery Method Room Air Room Air BMI result Body Mass Index 16.7 Labs 01/02/24 07:18 Medications Medications Current Medications Acetaminophen (Acetaminophen 325 Mg Tablet) 650 mg PO Q6H PRN PRN Reason: Headache/Pain Mild Scale (1-3) Al Hydroxide/Mg Hydroxide (Magnesium Hydrox/Alum Hydrox 30 Ml Oral.Susp) 30 ml PO Q6H PRN PRN Reason: Heartburn/Nausea Donepezil HCl (Donepezil Hcl 10 Mg Tablet) 10 mg PO BEDTIME GRICELDA Folic Acid (Folic Acid 1 Mg Tablet) 1 mg PO DAILY [facility] Last Admin: 01/07/24 09:07 Dose: 1 mg Magnesium Hydroxide (Milk Of Magnesia 30 Ml Oral.Susp) 30 ml PO DAILY PRN PRN Reason: Constipation Olanzapine (Olanzapine 2.5 Mg Tablet) 2.5 mg PO TID PRN PRN Reason: agitation Trazodone HCl (Trazodone Hcl 25 Mg Halftab) 25 mg PO BEDTIME MRX1 PRN PRN Reason: Insomnia Allergies Allergies Allergy/AdvReac Type Severity Reaction Status Date / Time No Known Allergies Allergy Verified 01/01/24 21:03 Assessment & Plan Assessment & Plan (1) Dementia: Status: Acute Code(s): F03.90 - Unspecified dementia, unspecified severity, without behavioral disturbance, psychotic disturbance, mood disturbance, and anxiety Plan There is a documented history of dementia and transfer paperwork. Unclear past psychiatric history in terms of admissions, medications, safety, behaviors etc.. Industrial Court Magistrate left message for his son with plan to invoke healthcare proxy as patient has clear cognitive impairment (due to dementia), does not understand conditional voluntary details, treatment recommendations etc.. Is not objecting to admission and defers to son (is HCP). Left VM for HCP to invoke same and complete CV. No response. While awaiting same, will complete S12, with view to invoking HCP and completing CV with HCP. Plan 1. Gather collateral information. 2. Start Aricept 5 mg p.o. q.h.s. to target dementia. We will try to go up to 10 mg and then add Namenda since he is [place] is 14/30 and his Adrian test is 3.4. Namenda will be started early next week 4. Continue with medical treatment. Reason for continued inpatient stay Substantial Risk for: inability to function, rapid decompensation and med/psych decompensation Time Spent With Patient Time: Total time managing care of this patient today __20__ minutes.
[2024-01-07 20:00] VITALS: BP 108/59; PULSE 61; RESP 16; TEMP 36.1; O2SAT 93
[2024-01-07] MEDS: Donepezil HCl 10 MG TABLET PO (20:47)
[2024-01-08 08:00] VITALS: BP 113/65; PULSE 65; RESP 18; TEMP 36.2; O2SAT 94
[2024-01-08] MEDS: Folic Acid 1 MG TABLET PO (08:32)
[2024-01-08 09:09] VITALS: BMI 17.8
--- NOTE | 2024-01-08 14:13 | HO.PSYCHPN ---
Subjective Subjective Date of Service: 01/08/24 Reason For Visit: Alzheimers Disease Subjective Notes: Conditional Voluntary Interim History: The nursing staff reported no changes in his mental status, he had been quiet and cooperative. The social insurance analyst reported that we will come next week and give more provide information. On interview the patient denies new symptoms pleasant and cooperative. Mental Status Exam Mental Status Exam Patient Appearance: Appropriate Patient Orientation: Person and Situation Level of Consciousness: Awake and Appropriate Patient Behavior: Guarded and Passive Mood Description: Withdrawn Affect Description: Constricted Patient Cognition Impaired: Yes Speech Pattern: Impoverished Hallucinations: None Delusions: Not Present Thought Process: Evasive and Slowed Thinking Thought Content: positive for [place] and positive for Poverty of Content Judgement: Fair Diagnostics Vital Signs (24Hr): Vital Signs - 24 hr 01/07/24 20:00 01/08/24 08:00 Temperature 96.9 F 97.2 F Pulse Rate 61 65 Respiratory Rate 16 18 Blood Pressure 108/59 L 113/65 Pulse Oximetry 93 94 Oxygen Delivery Method Room Air Room Air BMI result Body Mass Index 17.8 Labs 01/02/24 07:18 Medications Medications Current Medications Acetaminophen (Acetaminophen 325 Mg Tablet) 650 mg PO Q6H PRN PRN Reason: Headache/Pain Mild Scale (1-3) Al Hydroxide/Mg Hydroxide (Magnesium Hydrox/Alum Hydrox 30 Ml Oral.Susp) 30 ml PO Q6H PRN PRN Reason: Heartburn/Nausea Donepezil HCl (Donepezil Hcl 10 Mg Tablet) 10 mg PO BEDTIME [facility] Last Admin: 01/07/24 20:47 Dose: 10 mg Folic Acid (Folic Acid 1 Mg Tablet) 1 mg PO DAILY [facility] Last Admin: 01/08/24 08:32 Dose: 1 mg Magnesium Hydroxide (Milk Of Magnesia 30 Ml Oral.Susp) 30 ml PO DAILY PRN PRN Reason: Constipation Olanzapine (Olanzapine 2.5 Mg Tablet) 2.5 mg PO TID PRN PRN Reason: agitation Trazodone HCl (Trazodone Hcl 25 Mg Halftab) 25 mg PO BEDTIME MRX1 PRN PRN Reason: Insomnia Allergies Allergies Allergy/AdvReac Type Severity Reaction Status Date / Time No Known Allergies Allergy Verified 01/01/24 21:03 Assessment & Plan Assessment & Plan (1) Dementia: Status: Acute Code(s): F03.90 - Unspecified dementia, unspecified severity, without behavioral disturbance, psychotic disturbance, mood disturbance, and anxiety Plan There is a documented history of dementia and transfer paperwork. Unclear past psychiatric history in terms of admissions, medications, safety, behaviors etc.. Cigar Packer And Picker left message for his son with plan to invoke healthcare proxy as patient has clear cognitive impairment (due to dementia), does not understand conditional voluntary details, treatment recommendations etc.. Is not objecting to admission and defers to son (is HCP). Left VM for HCP to invoke same and complete CV. No response. While awaiting same, will complete S12, with view to invoking HCP and completing CV with HCP. Plan 1. Gather collateral information. 2. Start Aricept 5 mg p.o. q.h.s. to target dementia. We will try to go up to 10 mg and then add Namenda since he is [place] is 14/30 and his Adrian test is 3.4. Namenda will be started early next week 4. Continue with medical treatment. Reason for continued inpatient stay Substantial Risk for: inability to function, rapid decompensation and med/psych decompensation Time Spent With Patient Time: Total time managing care of this patient today __20__ minutes.
[2024-01-08 20:47] VITALS: BP 121/57; PULSE 69; RESP 16; TEMP 36.6; O2SAT 94
[2024-01-08] MEDS: Donepezil HCl 10 MG TABLET PO (20:48)
[2024-01-09 08:00] VITALS: BP 107/58; PULSE 92; RESP 18; TEMP 36.1; O2SAT 94
[2024-01-09] MEDS: Folic Acid 1 MG TABLET PO (08:37)
--- NOTE | 2024-01-09 18:14 | HO.PSYCHPN ---
Subjective Subjective Date of Service: 01/09/24 Reason For Visit: Alzheimers Disease Interim History: Met with patient; discussed with team Mostly isolative, in his bed . He says he is okay but difficult with which to engage, giving one-word answers. Alert to self and location takes meds, cooperative; appropriate Mental Status Exam Mental Status Exam Patient Appearance: Appropriate Patient Orientation: Person and Situation Level of Consciousness: Awake and Appropriate Patient Behavior: Guarded and Passive Mood Description: Withdrawn Affect Description: Withdrawn Patient Cognition Impaired: Yes Speech Pattern: Long Pauses Hallucinations: None Delusions: Not Present Thought Process: Evasive and Slowed Thinking Thought Content: positive for [place] and positive for Poverty of Content Abnormal Motor Activity Signs and Symptoms: Psychomotor Retardation Judgement and Insight: impaired Diagnostics Vital Signs (24Hr): Vital Signs - 24 hr 01/08/24 20:47 01/09/24 08:00 Temperature 98 F 96.9 F Pulse Rate 69 92 Respiratory Rate 16 18 Blood Pressure 121/57 L 107/58 L Pulse Oximetry 94 94 Oxygen Delivery Method Room Air Room Air BMI result Body Mass Index 17.8 Labs 01/02/24 07:18 Medications Medications Current Medications Acetaminophen (Acetaminophen 325 Mg Tablet) 650 mg PO Q6H PRN PRN Reason: Headache/Pain Mild Scale (1-3) Al Hydroxide/Mg Hydroxide (Magnesium Hydrox/Alum Hydrox 30 Ml Oral.Susp) 30 ml PO Q6H PRN PRN Reason: Heartburn/Nausea Donepezil HCl (Donepezil Hcl 10 Mg Tablet) 10 mg PO BEDTIME [facility] Last Admin: 01/08/24 20:48 Dose: 10 mg Folic Acid (Folic Acid 1 Mg Tablet) 1 mg PO DAILY [facility] Last Admin: 01/09/24 08:37 Dose: 1 mg Magnesium Hydroxide (Milk Of Magnesia 30 Ml Oral.Susp) 30 ml PO DAILY PRN PRN Reason: Constipation Olanzapine (Olanzapine 2.5 Mg Tablet) 2.5 mg PO TID PRN PRN Reason: agitation Trazodone HCl (Trazodone Hcl 25 Mg Halftab) 25 mg PO BEDTIME MRX1 PRN PRN Reason: Insomnia Allergies Allergies Allergy/AdvReac Type Severity Reaction Status Date / Time No Known Allergies Allergy Verified 01/01/24 21:03 Assessment & Plan Assessment & Plan (1) Dementia: Status: Acute Code(s): F03.90 - Unspecified dementia, unspecified severity, without behavioral disturbance, psychotic disturbance, mood disturbance, and anxiety Plan There is a documented history of dementia and transfer paperwork. Unclear past psychiatric history in terms of admissions, medications, safety, behaviors etc.. Amusement Or Recreation Card Checker left message for his son with plan to invoke healthcare proxy as patient has clear cognitive impairment (due to dementia), does not understand conditional voluntary details, treatment recommendations etc.. Is not objecting to admission and defers to son (is HCP). Left VM for HCP to invoke same and complete CV. No response. While awaiting same, will complete S12, with view to invoking HCP and completing CV with HCP. 01/08 Mostly isolative, in his bed . He says he is okay but difficult with which to engage, giving one-word answers. Alert to self and location Plan 1. Gather collateral information. 2. Start Aricept 5 mg p.o. q.h.s. to target dementia. We will try to go up to 10 mg and then add Namenda since he is [place] is 14/30 and his Adrian test is 3.4. Namenda will be started early next week 4. Continue with medical treatment. Reason for continued inpatient stay Substantial Risk for: inability to function Time Spent With Patient Time: Total time managing care of this patient today ____ minutes.
[2024-01-09 20:55] VITALS: BP 112/66; PULSE 65; RESP 16; TEMP 36.3; O2SAT 95
[2024-01-09] MEDS: Donepezil HCl 10 MG TABLET PO (20:58)
[2024-01-10 08:00] VITALS: BP 107/62; PULSE 60; RESP 18; TEMP 36.6; O2SAT 94
[2024-01-10] MEDS: Folic Acid 1 MG TABLET PO (08:03)
[2024-01-10 20:13] VITALS: BP 110/66; PULSE 66; RESP 16; TEMP 36.5; O2SAT 94
[2024-01-10] MEDS: Donepezil HCl 10 MG TABLET PO (20:16)
[2024-01-11] MEDS: Folic Acid 1 MG TABLET PO (08:31)
[2024-01-11] MEDS: Memantine HCl 5 MG TABLET PO ×2 (09:05→20:46)
--- NOTE | 2024-01-11 09:12 | HO.PSYCHPN ---
Subjective Subjective Date of Service: 01/10/24 Reason For Visit: Alzheimers Disease Interim History: Late entry note for patient seen on 01/10/2024 Met with patient; discussed with team No change in presentation. Patient again says he is okay. Today oriented to self but not location, however did know the day of the week Mental Status Exam Mental Status Exam Patient Appearance: Appropriate Patient Orientation: Person and Situation Level of Consciousness: Awake and Appropriate Patient Behavior: Guarded and Passive Mood Description: Withdrawn Affect Description: Withdrawn Patient Cognition Impaired: Yes Speech Pattern: Long Pauses Hallucinations: None Delusions: Not Present Thought Process: Evasive and Slowed Thinking Thought Content: positive for [place] and positive for Poverty of Content Abnormal Motor Activity Signs and Symptoms: Psychomotor Retardation Judgement and Insight: impaired Diagnostics Vital Signs (24Hr): Vital Signs - 24 hr 01/10/24 20:13 Temperature 97.7 F Pulse Rate 66 Respiratory Rate 16 Blood Pressure 110/66 Pulse Oximetry 94 Oxygen Delivery Method Room Air BMI result Body Mass Index 17.8 Labs 01/02/24 07:18 Medications Medications Current Medications Acetaminophen (Acetaminophen 325 Mg Tablet) 650 mg PO Q6H PRN PRN Reason: Headache/Pain Mild Scale (1-3) Al Hydroxide/Mg Hydroxide (Magnesium Hydrox/Alum Hydrox 30 Ml Oral.Susp) 30 ml PO Q6H PRN PRN Reason: Heartburn/Nausea Donepezil HCl (Donepezil Hcl 10 Mg Tablet) 10 mg PO BEDTIME [facility] Last Admin: 01/10/24 20:16 Dose: 10 mg Folic Acid (Folic Acid 1 Mg Tablet) 1 mg PO DAILY [facility] Last Admin: 01/11/24 08:31 Dose: 1 mg Magnesium Hydroxide (Milk Of Magnesia 30 Ml Oral.Susp) 30 ml PO DAILY PRN PRN Reason: Constipation Memantine (Memantine Hcl 5 Mg Tablet) 5 mg PO BID [facility] Last Admin: 01/11/24 09:05 Dose: 5 mg Olanzapine (Olanzapine 2.5 Mg Tablet) 2.5 mg PO TID PRN PRN Reason: agitation Trazodone HCl (Trazodone Hcl 25 Mg Halftab) 25 mg PO BEDTIME MRX1 PRN PRN Reason: Insomnia Allergies Allergies Allergy/AdvReac Type Severity Reaction Status Date / Time No Known Allergies Allergy Verified 01/01/24 21:03 Assessment & Plan Assessment & Plan (1) Dementia: Status: Acute Code(s): F03.90 - Unspecified dementia, unspecified severity, without behavioral disturbance, psychotic disturbance, mood disturbance, and anxiety Plan There is a documented history of dementia and transfer paperwork. Unclear past psychiatric history in terms of admissions, medications, safety, behaviors etc.. Meat Processor left message for his son with plan to invoke healthcare proxy as patient has clear cognitive impairment (due to dementia), does not understand conditional voluntary details, treatment recommendations etc.. Is not objecting to admission and defers to son (is HCP). Left VM for HCP to invoke same and complete CV. No response. While awaiting same, will complete S12, with view to invoking HCP and completing CV with HCP. 01/08 Mostly isolative, in his bed . He says he is okay but difficult with which to engage, giving one-word answers. Alert to self and location 01/09 No change in presentation. Patient again says he is okay. Today oriented to self but not location, however did know the day of the week Plan 1. Gather collateral information. 2. Start Aricept 5 mg p.o. q.h.s. to target dementia. We will try to go up to 10 mg and then add Namenda since he is [place] is 1430 and his Adrian test is 3.4. Namenda will be started early next week 4. Continue with medical treatment. Reason for continued inpatient stay Substantial Risk for: inability to function Time Spent With Patient Time: Total time managing care of this patient today ____ minutes.
[2024-01-11 10:39] VITALS: BP 115/76; PULSE 68; RESP 16; TEMP 36.3; O2SAT 94
--- NOTE | 2024-01-11 14:34 | P.PNPSI_ITS ---
Subjective Subjective Date of Service: 01/11/24 Reason For Visit: Alzheimers Disease Subjective Notes: Conditional Voluntary Interim History: The nursing staff reported the patient had been common pleasant slept 8 hours. On interview the patient reports no changes in his mental status, we decided to start him on Namenda 5 mg p.o. b.i.d. due to advanced dementia. He requested multivitamins. Mental Status Exam Mental Status Exam Patient Appearance: Well Grooomed and Appropriate Patient Orientation: Person and Situation Level of Consciousness: Awake Patient Behavior: Guarded and Passive Mood Description: Withdrawn Affect Description: Constricted Patient Cognition Impaired: Yes Ability to Follow Directions: Good Speech Pattern: Clear Hallucinations: None Delusions: Not Present Thought Content: positive for [place], positive for [place] and positive for Poverty of Content Judgement: Fair Diagnostics Vital Signs (24Hr): Vital Signs - 24 hr 01/10/24 20:13 01/11/24 10:39 Temperature 97.7 F 97.4 F Pulse Rate 66 68 Respiratory Rate 16 16 Blood Pressure 110/66 115/76 Pulse Oximetry 94 94 Oxygen Delivery Method Room Air Room Air BMI result Body Mass Index 17.8 Labs 01/02/24 07:18 Medications Medications Current Medications Acetaminophen (Acetaminophen 325 Mg Tablet) 650 mg PO Q6H PRN PRN Reason: Headache/Pain Mild Scale (1-3) Al Hydroxide/Mg Hydroxide (Magnesium Hydrox/Alum Hydrox 30 Ml Oral.Susp) 30 ml PO Q6H PRN PRN Reason: Heartburn/Nausea Donepezil HCl (Donepezil Hcl 10 Mg Tablet) 10 mg PO BEDTIME [facility] Last Admin: 01/10/24 20:16 Dose: 10 mg Folic Acid (Folic Acid 1 Mg Tablet) 1 mg PO DAILY [facility] Last Admin: 01/11/24 08:31 Dose: 1 mg Magnesium Hydroxide (Milk Of Magnesia 30 Ml Oral.Susp) 30 ml PO DAILY PRN PRN Reason: Constipation Memantine (Memantine Hcl 5 Mg Tablet) 5 mg PO BID [facility] Last Admin: 01/11/24 09:05 Dose: 5 mg Olanzapine (Olanzapine 2.5 Mg Tablet) 2.5 mg PO TID PRN PRN Reason: agitation Trazodone HCl (Trazodone Hcl 25 Mg Halftab) 25 mg PO BEDTIME MRX1 PRN PRN Reason: Insomnia Allergies Allergies Allergy/AdvReac Type Severity Reaction Status Date / Time No Known Allergies Allergy Verified 01/01/24 21:03 Assessment & Plan Assessment & Plan (1) Dementia: Status: Acute Code(s): F03.90 - Unspecified dementia, unspecified severity, without behavioral disturbance, psychotic disturbance, mood disturbance, and anxiety Plan There is a documented history of dementia and transfer paperwork. Unclear past psychiatric history in terms of admissions, medications, safety, behaviors etc.. Estate And Trust Tax Principal left message for his son with plan to invoke healthcare proxy as patient has clear cognitive impairment (due to dementia), does not understand conditional voluntary details, treatment recommendations etc.. Is not objecting to admission and defers to son (is HCP). Left VM for HCP to invoke same and complete CV. No response. While awaiting same, will complete S12, with view to invoking HCP and completing CV with HCP. 01/08 Mostly isolative, in his bed . He says he is okay but difficult with which to engage, giving one-word answers. Alert to self and location 01/09 No change in presentation. Patient again says he is okay. Today oriented to self but not location, however did know the day of the week Plan 1. Gather collateral information. 2. Start Aricept 5 mg p.o. q.h.s. to target dementia. We will try to go up to 10 mg and then add Namenda since he is [place] is 14/30 and his Adrian test is 3.4. Namenda started on January 10 4. Continue with medical treatment. Reason for continued inpatient stay Substantial Risk for: inability to function, rapid decompensation and med/psych decompensation Time Spent With Patient Time: Total time managing care of this patient today __20__ minutes.
[2024-01-11 20:18] VITALS: BP 89/55; PULSE 72; RESP 17; TEMP 36.3; O2SAT 94
[2024-01-11] MEDS: Donepezil HCl 10 MG TABLET PO (20:46)
[2024-01-12 07:55] VITALS: BP 121/67; PULSE 78; RESP 18; TEMP 36.2; O2SAT 97
[2024-01-12] MEDS: Memantine HCl 5 MG TABLET PO ×2 (08:35→20:05)
[2024-01-12] MEDS: Folic Acid 1 MG TABLET PO (08:35)
[2024-01-12] MEDS: Donepezil HCl 10 MG TABLET PO (20:05)
[2024-01-12 21:31] VITALS: BP 97/66; PULSE 69; RESP 17; TEMP 35.6; O2SAT 95
[2024-01-13 08:15] VITALS: BP 112/68; PULSE 80; RESP 18; TEMP 36.9; O2SAT 95
[2024-01-13] MEDS: Memantine HCl 5 MG TABLET PO ×2 (08:39→21:24)
[2024-01-13] MEDS: Folic Acid 1 MG TABLET PO (08:39)
--- NOTE | 2024-01-13 10:37 | P.PNPSI_ITS ---
Subjective Subjective Date of Service: 01/13/24 Reason For Visit: Alzheimers Disease Interim History: Met with patient; discussed with team Patient with same presentation; eating, taking medication Mental Status Exam Mental Status Exam Patient Appearance: Appropriate Patient Orientation: Person and Situation Level of Consciousness: Awake and Appropriate Patient Behavior: Passive Mood Description: Withdrawn Affect Description: Withdrawn Patient Cognition Impaired: Yes Speech Pattern: Long Pauses Hallucinations: None Delusions: Not Present Thought Process: Evasive and Slowed Thinking Thought Content: positive for [place] and positive for Poverty of Content Abnormal Motor Activity Signs and Symptoms: Psychomotor Retardation Judgement and Insight: impaired Diagnostics Vital Signs (24Hr): Vital Signs - 24 hr 01/12/24 21:31 01/13/24 08:15 Temperature 96.1 F L 98.4 F Pulse Rate 69 80 Respiratory Rate 17 18 Blood Pressure 97/66 112/68 Pulse Oximetry 95 95 Oxygen Delivery Method Room Air Room Air BMI result Body Mass Index 17.8 Labs 01/02/24 07:18 Medications Medications Current Medications Acetaminophen (Acetaminophen 325 Mg Tablet) 650 mg PO Q6H PRN PRN Reason: Headache/Pain Mild Scale (1-3) Al Hydroxide/Mg Hydroxide (Magnesium Hydrox/Alum Hydrox 30 Ml Oral.Susp) 30 ml PO Q6H PRN PRN Reason: Heartburn/Nausea Donepezil HCl (Donepezil Hcl 10 Mg Tablet) 10 mg PO BEDTIME [facility] Last Admin: 01/12/24 20:05 Dose: 10 mg Folic Acid (Folic Acid 1 Mg Tablet) 1 mg PO DAILY [facility] Last Admin: 01/13/24 08:39 Dose: 1 mg Magnesium Hydroxide (Milk Of Magnesia 30 Ml Oral.Susp) 30 ml PO DAILY PRN PRN Reason: Constipation Memantine (Memantine Hcl 5 Mg Tablet) 5 mg PO BID [facility] Last Admin: 01/13/24 08:39 Dose: 5 mg Olanzapine (Olanzapine 2.5 Mg Tablet) 2.5 mg PO TID PRN PRN Reason: agitation Trazodone HCl (Trazodone Hcl 25 Mg Halftab) 25 mg PO BEDTIME MRX1 PRN PRN Reason: Insomnia Allergies Allergies Allergy/AdvReac Type Severity Reaction Status Date / Time No Known Allergies Allergy Verified 01/01/24 21:03 Assessment & Plan Assessment & Plan (1) Dementia: Status: Acute Code(s): F03.90 - Unspecified dementia, unspecified severity, without behavioral disturbance, psychotic disturbance, mood disturbance, and anxiety Plan There is a documented history of dementia and transfer paperwork. Unclear past psychiatric history in terms of admissions, medications, safety, behaviors etc.. Hearing Stenographer left message for his son with plan to invoke healthcare proxy as patient has clear cognitive impairment (due to dementia), does not understand conditional voluntary details, treatment recommendations etc.. Is not objecting to admission and defers to son (is HCP). Left VM for HCP to invoke same and complete CV. No response. While awaiting same, will complete S12, with view to invoking HCP and completing CV with HCP. 01/08 Mostly isolative, in his bed . He says he is okay but difficult with which to engage, giving one-word answers. Alert to self and location 01/09 No change in presentation. Patient again says he is okay. Today oriented to self but not location, however did know the day of the week Plan 1. Gather collateral information. 2. Start Aricept 5 mg p.o. q.h.s. to target dementia. We will try to go up to 10 mg and then add Namenda since he is [place] is 1430 and his Adrian test is 3.4. Namenda started on January 10. Continue with medical treatment. Reason for continued inpatient stay Substantial Risk for: inability to function Time Spent With Patient Time: Total time managing care of this patient today ____ minutes.
--- NOTE | 2024-01-13 10:37 | P.PNPSI_ITS ---
Subjective Subjective Date of Service: 01/12/24 Reason For Visit: Alzheimers Disease Interim History: Late entry note for patient seen on 01/12/2024 Met with patient; discussed with team Patient says he is okay and feels that he is getting better. He did tell nurse earlier he needed someone to cuddle him Mental Status Exam Mental Status Exam Patient Appearance: Appropriate Patient Orientation: Person and Situation Level of Consciousness: Awake and Appropriate Patient Behavior: Guarded and Passive Mood Description: Withdrawn Affect Description: Withdrawn Patient Cognition Impaired: Yes Speech Pattern: Long Pauses Hallucinations: None Delusions: Not Present Thought Process: Evasive and Slowed Thinking Thought Content: positive for [place] and positive for Poverty of Content Abnormal Motor Activity Signs and Symptoms: Psychomotor Retardation Judgement and Insight: impaired Diagnostics Vital Signs (24Hr): Vital Signs - 24 hr 01/12/24 21:31 01/13/24 08:15 Temperature 96.1 F L 98.4 F Pulse Rate 69 80 Respiratory Rate 17 18 Blood Pressure 97/66 112/68 Pulse Oximetry 95 95 Oxygen Delivery Method Room Air Room Air BMI result Body Mass Index 17.8 Labs 01/02/24 07:18 Medications Medications Current Medications Acetaminophen (Acetaminophen 325 Mg Tablet) 650 mg PO Q6H PRN PRN Reason: Headache/Pain Mild Scale (1-3) Al Hydroxide/Mg Hydroxide (Magnesium Hydrox/Alum Hydrox 30 Ml Oral.Susp) 30 ml PO Q6H PRN PRN Reason: Heartburn/Nausea Donepezil HCl (Donepezil Hcl 10 Mg Tablet) 10 mg PO BEDTIME [facility] Last Admin: 01/12/24 20:05 Dose: 10 mg Folic Acid (Folic Acid 1 Mg Tablet) 1 mg PO DAILY [facility] Last Admin: 01/13/24 08:39 Dose: 1 mg Magnesium Hydroxide (Milk Of Magnesia 30 Ml Oral.Susp) 30 ml PO DAILY PRN PRN Reason: Constipation Memantine (Memantine Hcl 5 Mg Tablet) 5 mg PO BID [facility] Last Admin: 01/13/24 08:39 Dose: 5 mg Olanzapine (Olanzapine 2.5 Mg Tablet) 2.5 mg PO TID PRN PRN Reason: agitation Trazodone HCl (Trazodone Hcl 25 Mg Halftab) 25 mg PO BEDTIME MRX1 PRN PRN Reason: Insomnia Allergies Allergies Allergy/AdvReac Type Severity Reaction Status Date / Time No Known Allergies Allergy Verified 01/01/24 21:03 Assessment & Plan Assessment & Plan (1) Dementia: Status: Acute Code(s): F03.90 - Unspecified dementia, unspecified severity, without behavioral disturbance, psychotic disturbance, mood disturbance, and anxiety Plan There is a documented history of dementia and transfer paperwork. Unclear past psychiatric history in terms of admissions, medications, safety, behaviors etc.. Slotter Operator left message for his son with plan to invoke healthcare proxy as patient has clear cognitive impairment (due to dementia), does not understand conditional voluntary details, treatment recommendations etc.. Is not objecting to admission and defers to son (is HCP). Left VM for HCP to invoke same and complete CV. No response. While awaiting same, will complete S12, with view to invoking HCP and completing CV with HCP. 01/08 Mostly isolative, in his bed . He says he is okay but difficult with which to engage, giving one-word answers. Alert to self and location 01/09 No change in presentation. Patient again says he is okay. Today oriented to self but not location, however did know the day of the week Plan 1. Gather collateral information. 2. Start Aricept 5 mg p.o. q.h.s. to target dementia. We will try to go up to 10 mg and then add Namenda since he is [place] is and his Adrian test is 3.4. Namenda started on January 10 4. Continue with medical treatment. Reason for continued inpatient stay Substantial Risk for: inability to function Time Spent With Patient Time: Total time managing care of this patient today ____ minutes.
--- NOTE | 2024-01-13 11:20 | MHC.CLN ---
F/U DIET=REGULAR. APPEARS TO BE EATING WELL, WITH MOST MEALS 100%. APPEARS THIN AND UNDERWEIGHT. NO DX MALNUTRITION AT THIS TIME DUE TO THIN IS BASELINE AND EATING WELL. SHOWS FAVORABLE WEIGHT GAIN SINCE ADM, +6.4%, WITH BMI=17.8. NO ADDITIONAL NUTRITION INTERVENTIONS AT THIS TIME. RD TO FOLLOW WEEKLY.
[2024-01-13 20:00] VITALS: BP 95/53; PULSE 70; TEMP 37.1; O2SAT 93
[2024-01-13] MEDS: Donepezil HCl 10 MG TABLET PO (21:24)
[2024-01-14 07:00] VITALS: BMI 16.8
[2024-01-14 08:00] VITALS: BP 115/59; PULSE 63; RESP 18; TEMP 36.3; O2SAT 95
[2024-01-14] MEDS: Folic Acid 1 MG TABLET PO (08:19)
[2024-01-14] MEDS: Memantine HCl 5 MG TABLET PO (08:19)
--- NOTE | 2024-01-14 10:32 | PC.NURSE ---
New dose 10 mg of Namenda to start at HS, per provider Dr Mukherjee
--- NOTE | 2024-01-14 14:54 | HO.PSYCHPN ---
Subjective Subjective Date of Service: 01/14/24 Reason For Visit: Alzheimers Disease Subjective Notes: Conditional Voluntary Interim History: The nursing staff reported the patient had been compliant with treatment, pleasant but sexually inappropriate according to the staff, easily redirectable. The social worker delinquency prevention reported that they have been applied for [facility] facilities placement. On interview the patient denies new symptoms waiting for placement Mental Status Exam Mental Status Exam Patient Appearance: Appropriate Patient Orientation: Person and Situation Level of Consciousness: Awake and Appropriate Patient Behavior: Guarded and Passive Mood Description: Withdrawn Affect Description: Constricted Patient Cognition Impaired: Yes Ability to Follow Directions: Good Speech Pattern: Clear Hallucinations: None Delusions: Not Present Thought Process: Linear Thought Content: positive for [place] and positive for Poverty of Content Judgement: Fair Diagnostics Vital Signs (24Hr): Vital Signs - 24 hr 01/13/24 20:00 01/14/24 08:00 Temperature 98.7 F 97.3 F Pulse Rate 70 63 Respiratory Rate 18 Blood Pressure 95/53 L 115/59 L Pulse Oximetry 93 95 Oxygen Delivery Method Room Air Room Air BMI result Body Mass Index 17.8 Labs 01/02/24 07:18 Medications Medications Current Medications Acetaminophen (Acetaminophen 325 Mg Tablet) 650 mg PO Q6H PRN PRN Reason: Headache/Pain Mild Scale (1-3) Al Hydroxide/Mg Hydroxide (Magnesium Hydrox/Alum Hydrox 30 Ml Oral.Susp) 30 ml PO Q6H PRN PRN Reason: Heartburn/Nausea Donepezil HCl (Donepezil Hcl 10 Mg Tablet) 10 mg PO BEDTIME [facility] Last Admin: 01/13/24 21:24 Dose: 10 mg Folic Acid (Folic Acid 1 Mg Tablet) 1 mg PO DAILY [facility] Last Admin: 01/14/24 08:19 Dose: 1 mg Magnesium Hydroxide (Milk Of Magnesia 30 Ml Oral.Susp) 30 ml PO DAILY PRN PRN Reason: Constipation Memantine (Memantine Hcl 10 Mg Tablet) 10 mg PO BID [facility] Last Admin: 01/14/24 10:32 Dose: Not Given Olanzapine (Olanzapine 2.5 Mg Tablet) 2.5 mg PO TID PRN PRN Reason: agitation Trazodone HCl (Trazodone Hcl 25 Mg Halftab) 25 mg PO BEDTIME MRX1 PRN PRN Reason: Insomnia Allergies Allergies Allergy/AdvReac Type Severity Reaction Status Date / Time No Known Allergies Allergy Verified 01/01/24 21:03 Assessment & Plan Assessment & Plan (1) Dementia: Status: Acute Code(s): F03.90 - Unspecified dementia, unspecified severity, without behavioral disturbance, psychotic disturbance, mood disturbance, and anxiety Plan There is a documented history of dementia and transfer paperwork. Unclear past psychiatric history in terms of admissions, medications, safety, behaviors etc.. Maintenance Of Way Clerk left message for his son with plan to invoke healthcare proxy as patient has clear cognitive impairment (due to dementia), does not understand conditional voluntary details, treatment recommendations etc.. Is not objecting to admission and defers to son (is HCP). Left VM for HCP to invoke same and complete CV. No response. While awaiting same, will complete S12, with view to invoking HCP and completing CV with HCP. 01/08 Mostly isolative, in his bed . He says he is okay but difficult with which to engage, giving one-word answers. Alert to self and location 01/09 No change in presentation. Patient again says he is okay. Today oriented to self but not location, however did know the day of the week Plan 1. Gather collateral information. 2. Start Aricept 5 mg p.o. q.h.s. to target dementia. We will try to go up to 10 mg and then add Namenda since he is [place] is 1430 and his Adrian test is 3.4. Namenda started on January 10. On January 13 we increased up to 10 mg p.o. b.i.d. 4. Continue with medical treatment. Reason for continued inpatient stay Substantial Risk for: inability to function, rapid decompensation and med/psych decompensation Time Spent With Patient Time: Total time managing care of this patient today __20__ minutes.
[2024-01-14 20:00] VITALS: BP 120/56; PULSE 63; RESP 16; TEMP 36.3; O2SAT 95
[2024-01-14] MEDS: Donepezil HCl 10 MG TABLET PO (20:00)
[2024-01-14] MEDS: Memantine HCl 10 MG TABLET PO (20:00)
[2024-01-14 20:30] VITALS: BP 120/56; PULSE 63; RESP 16; TEMP 36.3; O2SAT 95
[2024-01-15 08:03] VITALS: BP 121/69; PULSE 66; RESP 18; TEMP 36.2; O2SAT 96
[2024-01-15] MEDS: Folic Acid 1 MG TABLET PO (08:26)
[2024-01-15] MEDS: Memantine HCl 10 MG TABLET PO ×2 (08:26→21:05)
--- NOTE | 2024-01-15 13:23 | P.PNPSI_ITS ---
Subjective Subjective Date of Service: 01/15/24 Reason For Visit: Alzheimers Disease Subjective Notes: Conditional Voluntary Interim History: The nursing staff reported the patient had been pleasant, slept 8 hours and he had been compliant with treatment. On interview the patient denies new symptoms, waiting for placement. Mental Status Exam Mental Status Exam Patient Appearance: Appropriate Patient Orientation: Person and Situation Level of Consciousness: Awake Patient Behavior: Appropriate and Passive Mood Description: Withdrawn Affect Description: Calm Patient Cognition Impaired: Yes Ability to Follow Directions: Good Speech Pattern: Clear Hallucinations: None Delusions: Not Present Thought Process: Distracted and Slowed Thinking Thought Content: positive for [place] and positive for Poverty of Content Judgement: Fair Diagnostics Vital Signs (24Hr): Vital Signs - 24 hr 01/14/24 20:00 01/14/24 20:30 01/15/24 08:03 Temperature 97.3 F 97.3 F 97.2 F Pulse Rate 63 63 66 Respiratory Rate 16 16 18 Blood Pressure 120/56 L 120/56 L 121/69 Pulse Oximetry 95 95 96 Oxygen Delivery Method Room Air Room Air Room Air BMI result Body Mass Index 16.8 Labs 01/02/24 07:18 Medications Medications Current Medications Acetaminophen (Acetaminophen 325 Mg Tablet) 650 mg PO Q6H PRN PRN Reason: Headache/Pain Mild Scale (1-3) Al Hydroxide/Mg Hydroxide (Magnesium Hydrox/Alum Hydrox 30 Ml Oral.Susp) 30 ml PO Q6H PRN PRN Reason: Heartburn/Nausea Donepezil HCl (Donepezil Hcl 10 Mg Tablet) 10 mg PO BEDTIME [facility] Last Admin: 01/14/24 20:00 Dose: 10 mg Folic Acid (Folic Acid 1 Mg Tablet) 1 mg PO DAILY [facility] Last Admin: 01/15/24 08:26 Dose: 1 mg Magnesium Hydroxide (Milk Of Magnesia 30 Ml Oral.Susp) 30 ml PO DAILY PRN PRN Reason: Constipation Memantine (Memantine Hcl 10 Mg Tablet) 10 mg PO BID [facility] Last Admin: 01/15/24 08:26 Dose: 10 mg Olanzapine (Olanzapine 2.5 Mg Tablet) 2.5 mg PO TID PRN PRN Reason: agitation Trazodone HCl (Trazodone Hcl 25 Mg Halftab) 25 mg PO BEDTIME MRX1 PRN PRN Reason: Insomnia Allergies Allergies Allergy/AdvReac Type Severity Reaction Status Date / Time No Known Allergies Allergy Verified 01/01/24 21:03 Assessment & Plan Assessment & Plan (1) Dementia: Status: Acute Code(s): F03.90 - Unspecified dementia, unspecified severity, without behavioral disturbance, psychotic disturbance, mood disturbance, and anxiety Plan There is a documented history of dementia and transfer paperwork. Unclear past psychiatric history in terms of admissions, medications, safety, behaviors etc.. Civil Engineering Director left message for his son with plan to invoke healthcare proxy as patient has clear cognitive impairment (due to dementia), does not understand conditional voluntary details, treatment recommendations etc.. Is not objecting to admission and defers to son (is HCP). Left VM for HCP to invoke same and complete CV. No response. While awaiting same, will complete S12, with view to invoking HCP and completing CV with HCP. 01/08 Mostly isolative, in his bed . He says he is okay but difficult with which to engage, giving one-word answers. Alert to self and location 01/09 No change in presentation. Patient again says he is okay. Today oriented to self but not location, however did know the day of the week Plan 1. Gather collateral information. 2. Start Aricept 5 mg p.o. q.h.s. to target dementia. We will try to go up to 10 mg and then add Namenda since he is [place] is 1430 and his Adrian test is 3.4. Namenda started on January 10. On January 13 we increased up to 10 mg p.o. b.i.d. 4. Continue with medical treatment. Reason for continued inpatient stay Substantial Risk for: inability to function, rapid decompensation and med/psych decompensation Time Spent With Patient Time: Total time managing care of this patient today __20__ minutes.
[2024-01-15 20:00] VITALS: BP 105/61; PULSE 74; RESP 18; TEMP 36.3; O2SAT 94
[2024-01-15] MEDS: Donepezil HCl 10 MG TABLET PO (21:05)
[2024-01-16 08:24] VITALS: BP 114/68; PULSE 57; RESP 16; TEMP 36.4; O2SAT 94
[2024-01-16] MEDS: Folic Acid 1 MG TABLET PO (08:28)
[2024-01-16] MEDS: Memantine HCl 10 MG TABLET PO ×2 (08:28→20:27)
--- NOTE | 2024-01-16 12:36 | HO.PSYCHPN ---
Subjective Subjective Date of Service: 01/16/24 Reason For Visit: Alzheimers Disease Subjective Notes: Conditional Voluntary Interim History: Pt slept most of the night. He denies any concerns. No behavioral concerns. VS stable. takes meds as prescribed. Review of Systems Review of Systems nothing acute Yes all other systems are reviewed and are negative Mental Status Exam Mental Status Exam Patient Appearance: Appropriate Patient Orientation: Person and Situation Level of Consciousness: Awake Patient Behavior: Appropriate and Passive Mood Description: Withdrawn Affect Description: Calm Patient Cognition Impaired: Yes Ability to Follow Directions: Good Speech Pattern: Clear Diagnostics Vital Signs (24Hr): Vital Signs - 24 hr 01/15/24 20:00 01/16/24 08:24 Temperature 97.4 F 97.6 F Pulse Rate 74 57 Respiratory Rate 18 16 Blood Pressure 105/61 114/68 Pulse Oximetry 94 94 Oxygen Delivery Method Room Air Room Air BMI result Body Mass Index 16.8 Labs 01/02/24 07:18 Medications Medications Current Medications Acetaminophen (Acetaminophen 325 Mg Tablet) 650 mg PO Q6H PRN PRN Reason: Headache/Pain Mild Scale (1-3) Al Hydroxide/Mg Hydroxide (Magnesium Hydrox/Alum Hydrox 30 Ml Oral.Susp) 30 ml PO Q6H PRN PRN Reason: Heartburn/Nausea Donepezil HCl (Donepezil Hcl 10 Mg Tablet) 10 mg PO BEDTIME [facility] Last Admin: 01/15/24 21:05 Dose: 10 mg Folic Acid (Folic Acid 1 Mg Tablet) 1 mg PO DAILY [facility] Last Admin: 01/16/24 08:28 Dose: 1 mg Magnesium Hydroxide (Milk Of Magnesia 30 Ml Oral.Susp) 30 ml PO DAILY PRN PRN Reason: Constipation Memantine (Memantine Hcl 10 Mg Tablet) 10 mg PO BID [facility] Last Admin: 01/16/24 08:28 Dose: 10 mg Olanzapine (Olanzapine 2.5 Mg Tablet) 2.5 mg PO TID PRN PRN Reason: agitation Trazodone HCl (Trazodone Hcl 25 Mg Halftab) 25 mg PO BEDTIME MRX1 PRN PRN Reason: Insomnia Allergies Allergies Allergy/AdvReac Type Severity Reaction Status Date / Time No Known Allergies Allergy Verified 01/01/24 21:03 Assessment & Plan Assessment & Plan (1) Dementia: Status: Acute Code(s): F03.90 - Unspecified dementia, unspecified severity, without behavioral disturbance, psychotic disturbance, mood disturbance, and anxiety Plan There is a documented history of dementia and transfer paperwork. Unclear past psychiatric history in terms of admissions, medications, safety, behaviors etc.. Television Cable Installer left message for his son with plan to invoke healthcare proxy as patient has clear cognitive impairment (due to dementia), does not understand conditional voluntary details, treatment recommendations etc.. Is not objecting to admission and defers to son (is HCP). Left VM for HCP to invoke same and complete CV. No response. While awaiting same, will complete S12, with view to invoking HCP and completing CV with HCP. 01/08 Mostly isolative, in his bed . He says he is okay but difficult with which to engage, giving one-word answers. Alert to self and location 01/09 No change in presentation. Patient again says he is okay. Today oriented to self but not location, however did know the day of the week Plan 01/15 continue tx.. Reason for continued inpatient stay Substantial Risk for: inability to function Time Spent With Patient Time: Total time managing care of this patient today ____ minutes.
[2024-01-16 20:00] VITALS: BP 128/59; PULSE 78; RESP 18; TEMP 36.9; O2SAT 98
[2024-01-16] MEDS: Donepezil HCl 10 MG TABLET PO (20:27)
[2024-01-17 07:55] VITALS: BP 118/70; PULSE 60; RESP 16; TEMP 36.4; O2SAT 96
[2024-01-17] MEDS: Memantine HCl 10 MG TABLET PO ×2 (08:22→20:24)
[2024-01-17] MEDS: Folic Acid 1 MG TABLET PO (08:22)
--- NOTE | 2024-01-17 14:53 | P.PNPSI_ITS ---
Subjective Subjective Date of Service: 01/17/24 Reason For Visit: Alzheimers Disease Subjective Notes: Conditional Voluntary Interim History: Pt slept most of the night. He denies any concerns. No behavioral concerns. VS stable. takes meds as prescribed. Review of Systems Review of Systems nothing acute Yes all other systems are reviewed and are negative Mental Status Exam Mental Status Exam Patient Appearance: Appropriate Patient Orientation: Person and Situation Level of Consciousness: Awake Patient Behavior: Appropriate and Passive Mood Description: Withdrawn Affect Description: Calm Patient Cognition Impaired: Yes Ability to Follow Directions: Good Speech Pattern: Clear Diagnostics Vital Signs (24Hr): Vital Signs - 24 hr 01/16/24 20:00 01/17/24 07:55 Temperature 98.4 F 97.6 F Pulse Rate 78 60 Respiratory Rate 18 16 Blood Pressure 128/59 L 118/70 Pulse Oximetry 98 96 Oxygen Delivery Method Room Air Room Air BMI result Body Mass Index 16.8 Labs 01/02/24 07:18 Medications Medications Current Medications Acetaminophen (Acetaminophen 325 Mg Tablet) 650 mg PO Q6H PRN PRN Reason: Headache/Pain Mild Scale (1-3) Al Hydroxide/Mg Hydroxide (Magnesium Hydrox/Alum Hydrox 30 Ml Oral.Susp) 30 ml PO Q6H PRN PRN Reason: Heartburn/Nausea Donepezil HCl (Donepezil Hcl 10 Mg Tablet) 10 mg PO BEDTIME [facility] Last Admin: 01/16/24 20:27 Dose: 10 mg Folic Acid (Folic Acid 1 Mg Tablet) 1 mg PO DAILY [facility] Last Admin: 01/17/24 08:22 Dose: 1 mg Magnesium Hydroxide (Milk Of Magnesia 30 Ml Oral.Susp) 30 ml PO DAILY PRN PRN Reason: Constipation Memantine (Memantine Hcl 10 Mg Tablet) 10 mg PO BID [facility] Last Admin: 01/17/24 08:22 Dose: 10 mg Olanzapine (Olanzapine 2.5 Mg Tablet) 2.5 mg PO TID PRN PRN Reason: agitation Trazodone HCl (Trazodone Hcl 25 Mg Halftab) 25 mg PO BEDTIME MRX1 PRN PRN Reason: Insomnia Allergies Allergies Allergy/AdvReac Type Severity Reaction Status Date / Time No Known Allergies Allergy Verified 01/01/24 21:03 Assessment & Plan Assessment & Plan (1) Dementia: Status: Acute Code(s): F03.90 - Unspecified dementia, unspecified severity, without behavioral disturbance, psychotic disturbance, mood disturbance, and anxiety Plan There is a documented history of dementia and transfer paperwork. Unclear past psychiatric history in terms of admissions, medications, safety, behaviors etc.. Densitometrist left message for his son with plan to invoke healthcare proxy as patient has clear cognitive impairment (due to dementia), does not understand conditional voluntary details, treatment recommendations etc.. Is not objecting to admission and defers to son (is HCP). Left VM for HCP to invoke same and complete CV. No response. While awaiting same, will complete S12, with view to invoking HCP and completing CV with HCP. 01/08 Mostly isolative, in his bed . He says he is okay but difficult with which to engage, giving one-word answers. Alert to self and location 01/09 No change in presentation. Patient again says he is okay. Today oriented to self but not location, however did know the day of the week Plan 01/16 continue tx. Reason for continued inpatient stay Substantial Risk for: inability to function Time Spent With Patient Time: Total time managing care of this patient today ____ minutes.
--- NOTE | 2024-01-17 15:52 | PC.NURSE ---
pt had a witnessed fall at 1540. His visitor was getting up to leave and he stood up and lost his balance. He did not hit his head, He landed on his bottom. no injuries noted. Pt denies pain/discomfort. VSS, BP100/53, P76, Provider notified.
[2024-01-17] MEDS: Donepezil HCl 10 MG TABLET PO (20:24)
[2024-01-18 00:37] VITALS: BP 123/32; PULSE 69; RESP 18; TEMP 35.8; O2SAT 98
[2024-01-18 08:00] VITALS: BP 123/78; PULSE 67; RESP 18; TEMP 36.3; O2SAT 94
[2024-01-18] MEDS: Folic Acid 1 MG TABLET PO (09:06)
[2024-01-18] MEDS: Memantine HCl 10 MG TABLET PO ×2 (09:06→20:06)
--- NOTE | 2024-01-18 14:54 | P.PNPSI_ITS ---
Subjective Subjective Date of Service: 01/18/24 Reason For Visit: Alzheimers Disease Subjective Notes: Conditional Voluntary Interim History: The nursing staff reported that he fell last Thursday but no head trauma he had been pleasant, attending to groups. The social worker psychiatric reported the healthcare proxy still looking for placement. On interview the patient denies new symptoms, waiting for placement. Mental Status Exam Mental Status Exam Patient Appearance: Appropriate Patient Orientation: Person and Situation Level of Consciousness: Awake Patient Behavior: Guarded and Passive Mood Description: Withdrawn Affect Description: Constricted Patient Cognition Impaired: Yes Ability to Follow Directions: Good Speech Pattern: Clear Hallucinations: None Delusions: Not Present Thought Process: Distracted and Slowed Thinking Thought Content: positive for [place] and positive for Poverty of Content Judgement: Fair Diagnostics Vital Signs (24Hr): Vital Signs - 24 hr 01/18/24 00:37 01/18/24 08:00 Temperature 96.4 F L 97.3 F Pulse Rate 69 67 Respiratory Rate 18 18 Blood Pressure 123/32 L 123/78 Pulse Oximetry 98 94 Oxygen Delivery Method Room Air Room Air BMI result Body Mass Index 16.8 Labs 01/02/24 07:18 Medications Medications Current Medications Acetaminophen (Acetaminophen 325 Mg Tablet) 650 mg PO Q6H PRN PRN Reason: Headache/Pain Mild Scale (1-3) Al Hydroxide/Mg Hydroxide (Magnesium Hydrox/Alum Hydrox 30 Ml Oral.Susp) 30 ml PO Q6H PRN PRN Reason: Heartburn/Nausea Donepezil HCl (Donepezil Hcl 10 Mg Tablet) 10 mg PO BEDTIME [facility] Last Admin: 01/17/24 20:24 Dose: 10 mg Folic Acid (Folic Acid 1 Mg Tablet) 1 mg PO DAILY [facility] Last Admin: 01/18/24 09:06 Dose: 1 mg Magnesium Hydroxide (Milk Of Magnesia 30 Ml Oral.Susp) 30 ml PO DAILY PRN PRN Reason: Constipation Memantine (Memantine Hcl 10 Mg Tablet) 10 mg PO BID [facility] Last Admin: 01/18/24 09:06 Dose: 10 mg Olanzapine (Olanzapine 2.5 Mg Tablet) 2.5 mg PO TID PRN PRN Reason: agitation Trazodone HCl (Trazodone Hcl 25 Mg Halftab) 25 mg PO BEDTIME MRX1 PRN PRN Reason: Insomnia Allergies Allergies Allergy/AdvReac Type Severity Reaction Status Date / Time No Known Allergies Allergy Verified 01/01/24 21:03 Assessment & Plan Assessment & Plan (1) Dementia: Status: Acute Code(s): F03.90 - Unspecified dementia, unspecified severity, without behavioral disturbance, psychotic disturbance, mood disturbance, and anxiety Plan There is a documented history of dementia and transfer paperwork. Unclear past psychiatric history in terms of admissions, medications, safety, behaviors etc.. Wire Preparation Machine Tender left message for his son with plan to invoke healthcare proxy as patient has clear cognitive impairment (due to dementia), does not understand conditional voluntary details, treatment recommendations etc.. Is not objecting to admission and defers to son (is HCP). Left VM for HCP to invoke same and complete CV. No response. While awaiting same, will complete S12, with view to invoking HCP and completing CV with HCP. 01/08 Mostly isolative, in his bed . He says he is okay but difficult with which to engage, giving one-word answers. Alert to self and location 01/09 No change in presentation. Patient again says he is okay. Today oriented to self but not location, however did know the day of the week Plan 1. Continue with Aricept 10 mg and Namenda 10 b.i.d.. 2. Waiting for placement. Reason for continued inpatient stay Substantial Risk for: inability to function, rapid decompensation and med/psych decompensation Time Spent With Patient Time: Total time managing care of this patient today __20__ minutes.
[2024-01-18 20:00] VITALS: BP 111/60; PULSE 59; RESP 16; TEMP 36.8; O2SAT 94
[2024-01-18] MEDS: Donepezil HCl 10 MG TABLET PO (20:06)
[2024-01-19 07:49] VITALS: BP 111/62; PULSE 68; RESP 18; TEMP 36.2; O2SAT 94
[2024-01-19] MEDS: Folic Acid 1 MG TABLET PO (08:04)
[2024-01-19] MEDS: Memantine HCl 10 MG TABLET PO ×2 (08:04→20:04)
--- NOTE | 2024-01-19 16:56 | P.PNPSI_ITS ---
Subjective Subjective Date of Service: 01/19/24 Reason For Visit: Alzheimers Disease Subjective Notes: Conditional Voluntary Interim History: The nursing staff reported no changes in his mental status compliant with treatment. He had been pleasant and confused easily redirectable. The social media coordinator reported that he had been referred to several facilities. On interview the patient denies new symptoms, waiting for placement. Mental Status Exam Mental Status Exam Patient Appearance: Appropriate Patient Orientation: Person and Situation Level of Consciousness: Awake and Appropriate Patient Behavior: Guarded and Passive Mood Description: Calm Affect Description: Constricted Patient Cognition Impaired: Yes Ability to Follow Directions: Good Speech Pattern: Clear Hallucinations: None Delusions: Not Present Thought Process: Distracted and Slowed Thinking Thought Content: positive for [place] and positive for Poverty of Content Judgement: Fair Diagnostics Vital Signs (24Hr): Vital Signs - 24 hr 01/18/24 20:00 01/19/24 07:49 Temperature 98.2 F 97.2 F Pulse Rate 59 68 Respiratory Rate 16 18 Blood Pressure 111/60 111/62 Pulse Oximetry 94 94 Oxygen Delivery Method Room Air Room Air BMI result Body Mass Index 16.8 Labs 01/02/24 07:18 Medications Medications Current Medications Acetaminophen (Acetaminophen 325 Mg Tablet) 650 mg PO Q6H PRN PRN Reason: Headache/Pain Mild Scale (1-3) Al Hydroxide/Mg Hydroxide (Magnesium Hydrox/Alum Hydrox 30 Ml Oral.Susp) 30 ml PO Q6H PRN PRN Reason: Heartburn/Nausea Donepezil HCl (Donepezil Hcl 10 Mg Tablet) 10 mg PO BEDTIME [facility] Last Admin: 01/18/24 20:06 Dose: 10 mg Folic Acid (Folic Acid 1 Mg Tablet) 1 mg PO DAILY [facility] Last Admin: 01/19/24 08:04 Dose: 1 mg Magnesium Hydroxide (Milk Of Magnesia 30 Ml Oral.Susp) 30 ml PO DAILY PRN PRN Reason: Constipation Memantine (Memantine Hcl 10 Mg Tablet) 10 mg PO BID [facility] Last Admin: 01/19/24 08:04 Dose: 10 mg Olanzapine (Olanzapine 2.5 Mg Tablet) 2.5 mg PO TID PRN PRN Reason: agitation Trazodone HCl (Trazodone Hcl 25 Mg Halftab) 25 mg PO BEDTIME MRX1 PRN PRN Reason: Insomnia Allergies Allergies Allergy/AdvReac Type Severity Reaction Status Date / Time No Known Allergies Allergy Verified 01/01/24 21:03 Assessment & Plan Assessment & Plan (1) Dementia: Status: Acute Code(s): F03.90 - Unspecified dementia, unspecified severity, without behavioral disturbance, psychotic disturbance, mood disturbance, and anxiety Plan There is a documented history of dementia and transfer paperwork. Unclear past psychiatric history in terms of admissions, medications, safety, behaviors etc.. Silver Spray Worker left message for his son with plan to invoke healthcare proxy as patient has clear cognitive impairment (due to dementia), does not understand conditional voluntary details, treatment recommendations etc.. Is not objecting to admission and defers to son (is HCP). Left VM for HCP to invoke same and complete CV. No response. While awaiting same, will complete S12, with view to invoking HCP and completing CV with HCP. 01/08 Mostly isolative, in his bed . He says he is okay but difficult with which to engage, giving one-word answers. Alert to self and location 01/09 No change in presentation. Patient again says he is okay. Today oriented to self but not location, however did know the day of the week Plan 1. Continue with Aricept 10 mg and Namenda 10 b.i.d.. 2. Waiting for placement. Reason for continued inpatient stay Substantial Risk for: inability to function, rapid decompensation and med/psych decompensation Time Spent With Patient Time: Total time managing care of this patient today _20___ minutes.
[2024-01-19 20:00] VITALS: BP 108/59; PULSE 81; RESP 16; TEMP 36.4; O2SAT 94
[2024-01-19] MEDS: Donepezil HCl 10 MG TABLET PO (20:04)
[2024-01-20 07:55] VITALS: BP 120/70; PULSE 62; RESP 18; TEMP 36.8; O2SAT 95
[2024-01-20] MEDS: Folic Acid 1 MG TABLET PO (08:04)
[2024-01-20] MEDS: Memantine HCl 10 MG TABLET PO ×2 (08:04→19:47)
--- NOTE | 2024-01-20 11:00 | P.PNPSI_ITS ---
Subjective Subjective Date of Service: 01/20/24 Reason For Visit: Alzheimers Disease Subjective Notes: Conditional Voluntary Interim History: The nursing staff reported the patient had been pleasant, cooperative confused but easily redirectable. He slept 8 hours. The social science teacher reported that they have applied to several facilities, no response yet. On interview the patient denies new symptoms, waiting for placement, attending to a few groups. Mental Status Exam Mental Status Exam Patient Appearance: Appropriate Patient Orientation: Person and Situation Level of Consciousness: Awake and Appropriate Patient Behavior: Guarded and Passive Mood Description: Withdrawn Affect Description: Constricted Patient Cognition Impaired: Yes Ability to Follow Directions: Good Speech Pattern: Clear Hallucinations: None Delusions: Not Present Thought Process: Distracted and Evasive Thought Content: positive for [place] and positive for Poverty of Content Judgement: Fair Diagnostics Vital Signs (24Hr): Vital Signs - 24 hr 01/19/24 20:00 01/20/24 07:55 Temperature 97.5 F 98.2 F Pulse Rate 81 62 Respiratory Rate 16 18 Blood Pressure 108/59 L 120/70 Pulse Oximetry 94 95 Oxygen Delivery Method Room Air Room Air BMI result Body Mass Index 16.8 Labs 01/02/24 07:18 Medications Medications Current Medications Acetaminophen (Acetaminophen 325 Mg Tablet) 650 mg PO Q6H PRN PRN Reason: Headache/Pain Mild Scale (1-3) Al Hydroxide/Mg Hydroxide (Magnesium Hydrox/Alum Hydrox 30 Ml Oral.Susp) 30 ml PO Q6H PRN PRN Reason: Heartburn/Nausea Donepezil HCl (Donepezil Hcl 10 Mg Tablet) 10 mg PO BEDTIME [facility] Last Admin: 01/19/24 20:04 Dose: 10 mg Folic Acid (Folic Acid 1 Mg Tablet) 1 mg PO DAILY [facility] Last Admin: 01/20/24 08:04 Dose: 1 mg Magnesium Hydroxide (Milk Of Magnesia 30 Ml Oral.Susp) 30 ml PO DAILY PRN PRN Reason: Constipation Memantine (Memantine Hcl 10 Mg Tablet) 10 mg PO BID [facility] Last Admin: 01/20/24 08:04 Dose: 10 mg Olanzapine (Olanzapine 2.5 Mg Tablet) 2.5 mg PO TID PRN PRN Reason: agitation Trazodone HCl (Trazodone Hcl 25 Mg Halftab) 25 mg PO BEDTIME MRX1 PRN PRN Reason: Insomnia Allergies Allergies Allergy/AdvReac Type Severity Reaction Status Date / Time No Known Allergies Allergy Verified 01/01/24 21:03 Assessment & Plan Assessment & Plan (1) Dementia: Status: Acute Code(s): F03.90 - Unspecified dementia, unspecified severity, without behavioral disturbance, psychotic disturbance, mood disturbance, and anxiety Plan There is a documented history of dementia and transfer paperwork. Unclear past psychiatric history in terms of admissions, medications, safety, behaviors etc.. Superintendent Custodian Janitor left message for his son with plan to invoke healthcare proxy as patient has clear cognitive impairment (due to dementia), does not understand conditional voluntary details, treatment recommendations etc.. Is not objecting to admission and defers to son (is HCP). Left VM for HCP to invoke same and complete CV. No response. While awaiting same, will complete S12, with view to invoking HCP and completing CV with HCP. 01/08 Mostly isolative, in his bed . He says he is okay but difficult with which to engage, giving one-word answers. Alert to self and location 01/09 No change in presentation. Patient again says he is okay. Today oriented to self but not location, however did know the day of the week Plan 1. Continue with Aricept 10 mg and Namenda 10 b.i.d.. 2. Waiting for placement. Reason for continued inpatient stay Substantial Risk for: inability to function, rapid decompensation and med/psych decompensation Time Spent With Patient Time: Total time managing care of this patient today __20__ minutes.
--- NOTE | 2024-01-20 14:33 | MHC.CLN ---
F/U DIET=REGULAR. APPEARS TO BE EATING WELL, WITH MOST MEALS 100%. NO ADDITIONAL NUTRITION INTERVENTIONS AT THIS TIME. RD TO FOLLOW WEEKLY.
[2024-01-20 19:46] VITALS: BP 99/50; PULSE 62; TEMP 36.6; O2SAT 93
[2024-01-20] MEDS: Donepezil HCl 10 MG TABLET PO (19:47)
[2024-01-21 07:00] VITALS: BMI 17.2
[2024-01-21 08:26] VITALS: BP 112/73; PULSE 66; RESP 18; TEMP 36.1; O2SAT 92
[2024-01-21] MEDS: Folic Acid 1 MG TABLET PO (08:28)
[2024-01-21] MEDS: Memantine HCl 10 MG TABLET PO ×2 (08:28→20:16)
--- NOTE | 2024-01-21 14:45 | P.PNPSI_ITS ---
Subjective Subjective Date of Service: 01/21/24 Reason For Visit: Alzheimers Disease Subjective Notes: Conditional Voluntary Interim History: The nursing staff reported the patient had been pleasant, cooperative compliant with medications attending to all the groups. He went outside for fresh air break. On interview the patient denies new symptoms, waiting for placement. Mental Status Exam Mental Status Exam Patient Appearance: Appropriate Patient Orientation: Person and Situation Level of Consciousness: Awake Patient Behavior: Cooperative and Passive Mood Description: Calm Affect Description: Constricted Patient Cognition Impaired: Yes Ability to Follow Directions: Good Speech Pattern: Clear Hallucinations: None Delusions: Ideas of Reference Thought Process: Distracted Thought Content: positive for [place] and positive for Poverty of Content Judgement: Fair Diagnostics Vital Signs (24Hr): Vital Signs - 24 hr 01/20/24 19:46 01/21/24 08:26 Temperature 97.9 F 97.0 F Pulse Rate 62 66 Respiratory Rate 18 Blood Pressure 99/50 L 112/73 Pulse Oximetry 93 92 Oxygen Delivery Method Room Air Room Air BMI result Body Mass Index 17.2 Labs 01/02/24 07:18 Medications Medications Current Medications Acetaminophen (Acetaminophen 325 Mg Tablet) 650 mg PO Q6H PRN PRN Reason: Headache/Pain Mild Scale (1-3) Al Hydroxide/Mg Hydroxide (Magnesium Hydrox/Alum Hydrox 30 Ml Oral.Susp) 30 ml PO Q6H PRN PRN Reason: Heartburn/Nausea Donepezil HCl (Donepezil Hcl 10 Mg Tablet) 10 mg PO BEDTIME COUNTS [facility]CLUDE 234 BEDS AT [facility] Last Admin: 01/20/24 19:47 Dose: 10 mg Folic Acid (Folic Acid 1 Mg Tablet) 1 mg PO DAILY COUNTS INCLUDE 234 BEDS AT THE [facility] Last Admin: 01/21/24 08:28 Dose: 1 mg Magnesium Hydroxide (Milk Of Magnesia 30 Ml Oral.Susp) 30 ml PO DAILY PRN PRN Reason: Constipation Memantine (Memantine Hcl 10 Mg Tablet) 10 mg PO BID COUNTS INCLUDE 234 BEDS AT THE [facility] Last Admin: 01/21/24 08:28 Dose: 10 mg Olanzapine (Olanzapine 2.5 Mg Tablet) 2.5 mg PO TID PRN PRN Reason: agitation Trazodone HCl (Trazodone Hcl 25 Mg Halftab) 25 mg PO BEDTIME MRX1 PRN PRN Reason: Insomnia Allergies Allergies Allergy/AdvReac Type Severity Reaction Status Date / Time No Known Allergies Allergy Verified 01/01/24 21:03 Assessment & Plan Assessment & Plan (1) Dementia: Status: Acute Code(s): F03.90 - Unspecified dementia, unspecified severity, without behavioral disturbance, psychotic disturbance, mood disturbance, and anxiety Plan There is a documented history of dementia and transfer paperwork. Unclear past psychiatric history in terms of admissions, medications, safety, behaviors etc.. Community Outreach Advocate left message for his son with plan to invoke healthcare proxy as patient has clear cognitive impairment (due to dementia), does not understand conditional voluntary details, treatment recommendations etc.. Is not objecting to admission and defers to son (is HCP). Left VM for HCP to invoke same and complete CV. No response. While awaiting same, will complete S12, with view to invoking HCP and completing CV with HCP. 01/08 Mostly isolative, in his bed . He says he is okay but difficult with which to engage, giving one-word answers. Alert to self and location 01/09 No change in presentation. Patient again says he is okay. Today oriented to self but not location, however did know the day of the week Plan 1. Continue with Aricept 10 mg and Namenda 10 b.i.d.. 2. Waiting for placement. Reason for continued inpatient stay Substantial Risk for: inability to function, rapid decompensation and med/psych decompensation Time Spent With Patient Time: Total time managing care of this patient today __20__ minutes.
[2024-01-21 20:14] VITALS: BP 102/62; PULSE 63; RESP 16; TEMP 36.4; O2SAT 94
[2024-01-21] MEDS: Donepezil HCl 10 MG TABLET PO (20:16)
[2024-01-22 08:45] VITALS: BP 99/71; PULSE 87; RESP 18; TEMP 36.2; O2SAT 96
[2024-01-22] MEDS: Memantine HCl 10 MG TABLET PO ×2 (09:08→20:08)
[2024-01-22] MEDS: Folic Acid 1 MG TABLET PO (09:08)
--- NOTE | 2024-01-22 14:34 | HO.PSYCHPN ---
Subjective Subjective Date of Service: 01/22/24 Reason For Visit: Alzheimers Disease Subjective Notes: Conditional Voluntary Interim History: The nursing staff reported the patient had been pleasant cooperative confused but easily redirectable. On interview the patient denies new symptoms, waiting for placement. Mental Status Exam Mental Status Exam Patient Appearance: Appropriate Patient Orientation: Person and Situation Level of Consciousness: Awake and Appropriate Patient Behavior: Guarded and Passive Mood Description: Withdrawn Affect Description: Constricted Patient Cognition Impaired: Yes Ability to Follow Directions: Good Speech Pattern: Clear Hallucinations: None Delusions: Not Present Thought Process: Distracted and Slowed Thinking Thought Content: positive for [place] and positive for Poverty of Content Judgement: Fair Diagnostics Vital Signs (24Hr): Vital Signs - 24 hr 01/21/24 20:14 01/22/24 08:45 Temperature 97.6 F 97.1 F Pulse Rate 63 87 Respiratory Rate 16 18 Blood Pressure 102/62 99/71 Pulse Oximetry 94 96 Oxygen Delivery Method Room Air Room Air BMI result Body Mass Index 17.2 Labs 01/02/24 07:18 Medications Medications Current Medications Acetaminophen (Acetaminophen 325 Mg Tablet) 650 mg PO Q6H PRN PRN Reason: Headache/Pain Mild Scale (1-3) Al Hydroxide/Mg Hydroxide (Magnesium Hydrox/Alum Hydrox 30 Ml Oral.Susp) 30 ml PO Q6H PRN PRN Reason: Heartburn/Nausea Donepezil HCl (Donepezil Hcl 10 Mg Tablet) 10 mg PO BEDTIME [facility] Last Admin: 01/21/24 20:16 Dose: 10 mg Folic Acid (Folic Acid 1 Mg Tablet) 1 mg PO DAILY [facility] Last Admin: 01/22/24 09:08 Dose: 1 mg Magnesium Hydroxide (Milk Of Magnesia 30 Ml Oral.Susp) 30 ml PO DAILY PRN PRN Reason: Constipation Memantine (Memantine Hcl 10 Mg Tablet) 10 mg PO BID [facility] Last Admin: 01/22/24 09:08 Dose: 10 mg Olanzapine (Olanzapine 2.5 Mg Tablet) 2.5 mg PO TID PRN PRN Reason: agitation Trazodone HCl (Trazodone Hcl 25 Mg Halftab) 25 mg PO BEDTIME MRX1 PRN PRN Reason: Insomnia Allergies Allergies Allergy/AdvReac Type Severity Reaction Status Date / Time No Known Allergies Allergy Verified 01/01/24 21:03 Assessment & Plan Assessment & Plan (1) Dementia: Status: Acute Code(s): F03.90 - Unspecified dementia, unspecified severity, without behavioral disturbance, psychotic disturbance, mood disturbance, and anxiety Plan There is a documented history of dementia and transfer paperwork. Unclear past psychiatric history in terms of admissions, medications, safety, behaviors etc.. Concrete Pile Driver Operator left message for his son with plan to invoke healthcare proxy as patient has clear cognitive impairment (due to dementia), does not understand conditional voluntary details, treatment recommendations etc.. Is not objecting to admission and defers to son (is HCP). Left VM for HCP to invoke same and complete CV. No response. While awaiting same, will complete S12, with view to invoking HCP and completing CV with HCP. 01/08 Mostly isolative, in his bed . He says he is okay but difficult with which to engage, giving one-word answers. Alert to self and location 01/09 No change in presentation. Patient again says he is okay. Today oriented to self but not location, however did know the day of the week Plan 1. Continue with Aricept 10 mg and Namenda 10 b.i.d.. 2. Waiting for placement. Reason for continued inpatient stay Substantial Risk for: inability to function, rapid decompensation and med/psych decompensation Time Spent With Patient Time: Total time managing care of this patient today __20__ minutes.
[2024-01-22 20:00] VITALS: BP 109/57; PULSE 76; RESP 16; TEMP 36.1; O2SAT 95
[2024-01-22] MEDS: Donepezil HCl 10 MG TABLET PO (20:08)
[2024-01-23] MEDS: Memantine HCl 10 MG TABLET PO ×2 (08:27→20:07)
[2024-01-23] MEDS: Folic Acid 1 MG TABLET PO (08:27)
[2024-01-23 09:10] VITALS: BP 106/56; PULSE 82; RESP 18; TEMP 36.2; O2SAT 96
--- NOTE | 2024-01-23 09:11 | PC.NURSE ---
BP 106/[address] Altman notified of BP.
--- NOTE | 2024-01-23 10:33 | HO.PSYCHPN ---
Subjective Subjective Date of Service: 01/23/24 Reason For Visit: Alzheimers Disease Subjective Notes: Conditional Voluntary Interim History: The nursing staff reported the patient had been pleasant cooperative confused at times but easily redirectable. On interview the patient denies new symptoms, waiting for placement. Mental Status Exam Mental Status Exam Patient Appearance: Well Grooomed and Appropriate Patient Orientation: Person and Situation Level of Consciousness: Awake and Appropriate Patient Behavior: Guarded and Passive Mood Description: Withdrawn Affect Description: Constricted Patient Cognition Impaired: Yes Ability to Follow Directions: Good Speech Pattern: Clear Hallucinations: None Delusions: Not Present Thought Process: Distracted and Slowed Thinking Thought Content: positive for [place] and positive for Poverty of Content Judgement: Fair Diagnostics Vital Signs (24Hr): Vital Signs - 24 hr 01/22/24 20:00 01/23/24 09:10 Temperature 96.9 F 97.2 F Pulse Rate 76 82 Respiratory Rate 16 18 Blood Pressure 109/57 L 106/56 L Pulse Oximetry 95 96 Oxygen Delivery Method Room Air Room Air BMI result Body Mass Index 17.2 Labs 01/02/24 07:18 Medications Medications Current Medications Acetaminophen (Acetaminophen 325 Mg Tablet) 650 mg PO Q6H PRN PRN Reason: Headache/Pain Mild Scale (1-3) Al Hydroxide/Mg Hydroxide (Magnesium Hydrox/Alum Hydrox 30 Ml Oral.Susp) 30 ml PO Q6H PRN PRN Reason: Heartburn/Nausea Donepezil HCl (Donepezil Hcl 10 Mg Tablet) 10 mg PO BEDTIME [facility] Last Admin: 01/22/24 20:08 Dose: 10 mg Folic Acid (Folic Acid 1 Mg Tablet) 1 mg PO DAILY [facility] Last Admin: 01/23/24 08:27 Dose: 1 mg Magnesium Hydroxide (Milk Of Magnesia 30 Ml Oral.Susp) 30 ml PO DAILY PRN PRN Reason: Constipation Memantine (Memantine Hcl 10 Mg Tablet) 10 mg PO BID [facility] Last Admin: 01/23/24 08:27 Dose: 10 mg Olanzapine (Olanzapine 2.5 Mg Tablet) 2.5 mg PO TID PRN PRN Reason: agitation Trazodone HCl (Trazodone Hcl 25 Mg Halftab) 25 mg PO BEDTIME MRX1 PRN PRN Reason: Insomnia Allergies Allergies Allergy/AdvReac Type Severity Reaction Status Date / Time No Known Allergies Allergy Verified 01/01/24 21:03 Assessment & Plan Assessment & Plan (1) Dementia: Status: Acute Code(s): F03.90 - Unspecified dementia, unspecified severity, without behavioral disturbance, psychotic disturbance, mood disturbance, and anxiety Plan There is a documented history of dementia and transfer paperwork. Unclear past psychiatric history in terms of admissions, medications, safety, behaviors etc.. Software Test Engineer left message for his son with plan to invoke healthcare proxy as patient has clear cognitive impairment (due to dementia), does not understand conditional voluntary details, treatment recommendations etc.. Is not objecting to admission and defers to son (is HCP). Left VM for HCP to invoke same and complete CV. No response. While awaiting same, will complete S12, with view to invoking HCP and completing CV with HCP. 01/08 Mostly isolative, in his bed . He says he is okay but difficult with which to engage, giving one-word answers. Alert to self and location 01/09 No change in presentation. Patient again says he is okay. Today oriented to self but not location, however did know the day of the week Plan 1. Continue with Aricept 10 mg and Namenda 10 b.i.d.. 2. Waiting for placement. Reason for continued inpatient stay Substantial Risk for: inability to function, rapid decompensation and med/psych decompensation Time Spent With Patient Time: Total time managing care of this patient today __20__ minutes.
[2024-01-23 20:00] VITALS: BP 97/68; PULSE 67; RESP 67; TEMP 36.6; O2SAT 96
[2024-01-23] MEDS: Donepezil HCl 10 MG TABLET PO (20:07)
[2024-01-24] MEDS: Folic Acid 1 MG TABLET PO (08:39)
[2024-01-24] MEDS: Memantine HCl 10 MG TABLET PO ×2 (08:39→20:09)
[2024-01-24 08:49] VITALS: BP 113/62; PULSE 84; RESP 18; TEMP 36; O2SAT 96
--- NOTE | 2024-01-24 10:17 | P.PNPSI_ITS ---
Subjective Subjective Date of Service: 01/24/24 Reason For Visit: Alzheimers Disease Subjective Notes: Conditional Voluntary Interim History: The nursing staff reported the patient had been fully compliant with treatment, slept well last night. On interview the patient denies new symptoms pleasant, cooperative, waiting for placement Mental Status Exam Mental Status Exam Patient Appearance: Appropriate Patient Orientation: Person and Situation Level of Consciousness: Awake and Appropriate Patient Behavior: Guarded and Passive Mood Description: Withdrawn Affect Description: Constricted Patient Cognition Impaired: Yes Ability to Follow Directions: Good Speech Pattern: Clear Hallucinations: None Delusions: Not Present Thought Process: Distracted and Slowed Thinking Thought Content: positive for [place] and positive for Circumstantial Judgement: Fair Diagnostics Vital Signs (24Hr): Vital Signs - 24 hr 01/23/24 20:00 01/24/24 08:49 Temperature 97.9 F 96.8 F Pulse Rate 67 84 Respiratory Rate 67 H 18 Blood Pressure 97/68 113/62 Pulse Oximetry 96 96 Oxygen Delivery Method Room Air Room Air BMI result Body Mass Index 17.2 Labs 01/02/24 07:18 Medications Medications Current Medications Acetaminophen (Acetaminophen 325 Mg Tablet) 650 mg PO Q6H PRN PRN Reason: Headache/Pain Mild Scale (1-3) Al Hydroxide/Mg Hydroxide (Magnesium Hydrox/Alum Hydrox 30 Ml Oral.Susp) 30 ml PO Q6H PRN PRN Reason: Heartburn/Nausea Donepezil HCl (Donepezil Hcl 10 Mg Tablet) 10 mg PO BEDTIME [facility] Last Admin: 01/23/24 20:07 Dose: 10 mg Folic Acid (Folic Acid 1 Mg Tablet) 1 mg PO DAILY [facility] Last Admin: 01/24/24 08:39 Dose: 1 mg Magnesium Hydroxide (Milk Of Magnesia 30 Ml Oral.Susp) 30 ml PO DAILY PRN PRN Reason: Constipation Memantine (Memantine Hcl 10 Mg Tablet) 10 mg PO BID [facility] Last Admin: 01/24/24 08:39 Dose: 10 mg Olanzapine (Olanzapine 2.5 Mg Tablet) 2.5 mg PO TID PRN PRN Reason: agitation Trazodone HCl (Trazodone Hcl 25 Mg Halftab) 25 mg PO BEDTIME MRX1 PRN PRN Reason: Insomnia Allergies Allergies Allergy/AdvReac Type Severity Reaction Status Date / Time No Known Allergies Allergy Verified 01/01/24 21:03 Assessment & Plan Assessment & Plan (1) Dementia: Status: Acute Code(s): F03.90 - Unspecified dementia, unspecified severity, without behavioral disturbance, psychotic disturbance, mood disturbance, and anxiety Plan There is a documented history of dementia and transfer paperwork. Unclear past psychiatric history in terms of admissions, medications, safety, behaviors etc.. Dining Car Server left message for his son with plan to invoke healthcare proxy as patient has clear cognitive impairment (due to dementia), does not understand conditional voluntary details, treatment recommendations etc.. Is not objecting to admission and defers to son (is HCP). Left VM for HCP to invoke same and complete CV. No response. While awaiting same, will complete S12, with view to invoking HCP and completing CV with HCP. 01/08 Mostly isolative, in his bed . He says he is okay but difficult with which to engage, giving one-word answers. Alert to self and location 01/09 No change in presentation. Patient again says he is okay. Today oriented to self but not location, however did know the day of the week Plan 1. Continue with Aricept 10 mg and Namenda 10 b.i.d.. 2. Waiting for placement. Reason for continued inpatient stay Substantial Risk for: inability to function, rapid decompensation and med/psych decompensation Time Spent With Patient Time: Total time managing care of this patient today __20__ minutes.
[2024-01-24 20:07] VITALS: BP 110/71; PULSE 64; RESP 16; TEMP 36.3; O2SAT 96
[2024-01-24] MEDS: Donepezil HCl 10 MG TABLET PO (20:09)
[2024-01-25 08:05] VITALS: BP 112/70; PULSE 72; RESP 20; TEMP 36.8; O2SAT 96
[2024-01-25] MEDS: Folic Acid 1 MG TABLET PO (08:10)
[2024-01-25] MEDS: Memantine HCl 10 MG TABLET PO ×2 (08:10→19:55)
--- NOTE | 2024-01-25 11:17 | P.PNPSI_ITS ---
Subjective Subjective Date of Service: 01/25/24 Reason For Visit: Alzheimers Disease Subjective Notes: Conditional Voluntary Interim History: The nursing staff reported the patient had been cooperative pleasant, compliant with treatment. On interview the patient is pleasant, confused but easily redirectable, waiting for placement. Participating on groups and activities. Mental Status Exam Mental Status Exam Patient Appearance: Well Grooomed and Appropriate Patient Orientation: Person and Situation Level of Consciousness: Awake Patient Behavior: Appropriate Mood Description: Calm Affect Description: Constricted Patient Cognition Impaired: Yes Ability to Follow Directions: Good Speech Pattern: Clear Hallucinations: None Delusions: Not Present Thought Process: Distracted and Goal Oriented Thought Content: positive for [place] and positive for Circumstantial Judgement: Fair Diagnostics Vital Signs (24Hr): Vital Signs - 24 hr 01/24/24 20:07 01/25/24 08:05 Temperature 97.4 F 98.2 F Pulse Rate 64 72 Respiratory Rate 16 20 Blood Pressure 110/71 112/70 Pulse Oximetry 96 96 Oxygen Delivery Method Room Air Room Air BMI result Body Mass Index 17.2 Labs 01/02/24 07:18 Medications Medications Current Medications Acetaminophen (Acetaminophen 325 Mg Tablet) 650 mg PO Q6H PRN PRN Reason: Headache/Pain Mild Scale (1-3) Al Hydroxide/Mg Hydroxide (Magnesium Hydrox/Alum Hydrox 30 Ml Oral.Susp) 30 ml PO Q6H PRN PRN Reason: Heartburn/Nausea Donepezil HCl (Donepezil Hcl 10 Mg Tablet) 10 mg PO BEDTIME [facility] Last Admin: 01/24/24 20:09 Dose: 10 mg Folic Acid (Folic Acid 1 Mg Tablet) 1 mg PO DAILY [facility] Last Admin: 01/25/24 08:10 Dose: 1 mg Magnesium Hydroxide (Milk Of Magnesia 30 Ml Oral.Susp) 30 ml PO DAILY PRN PRN Reason: Constipation Memantine (Memantine Hcl 10 Mg Tablet) 10 mg PO BID [facility] Last Admin: 01/25/24 08:10 Dose: 10 mg Olanzapine (Olanzapine 2.5 Mg Tablet) 2.5 mg PO TID PRN PRN Reason: agitation Trazodone HCl (Trazodone Hcl 25 Mg Halftab) 25 mg PO BEDTIME MRX1 PRN PRN Reason: Insomnia Allergies Allergies Allergy/AdvReac Type Severity Reaction Status Date / Time No Known Allergies Allergy Verified 01/01/24 21:03 Assessment & Plan Assessment & Plan (1) Dementia: Status: Acute Code(s): F03.90 - Unspecified dementia, unspecified severity, without behavioral disturbance, psychotic disturbance, mood disturbance, and anxiety Plan There is a documented history of dementia and transfer paperwork. Unclear past psychiatric history in terms of admissions, medications, safety, behaviors etc.. Rounding Machine Operator left message for his son with plan to invoke healthcare proxy as patient has clear cognitive impairment (due to dementia), does not understand conditional voluntary details, treatment recommendations etc.. Is not objecting to admission and defers to son (is HCP). Left VM for HCP to invoke same and complete CV. No response. While awaiting same, will complete S12, with view to invoking HCP and completing CV with HCP. 01/08 Mostly isolative, in his bed . He says he is okay but difficult with which to engage, giving one-word answers. Alert to self and location 01/09 No change in presentation. Patient again says he is okay. Today oriented to self but not location, however did know the day of the week Plan 1. Continue with Aricept 10 mg and Namenda 10 b.i.d.. 2. Waiting for placement. Reason for continued inpatient stay Substantial Risk for: inability to function, rapid decompensation and med/psych decompensation Time Spent With Patient Time: Total time managing care of this patient today __20__ minutes.
[2024-01-25 19:51] VITALS: BP 96/56; PULSE 63; RESP 17; TEMP 36; O2SAT 94
[2024-01-25] MEDS: Donepezil HCl 10 MG TABLET PO (19:55)
[2024-01-26 07:55] VITALS: BP 118/64; PULSE 68; RESP 18; TEMP 36.8; O2SAT 95
[2024-01-26] MEDS: Folic Acid 1 MG TABLET PO (08:05)
[2024-01-26] MEDS: Memantine HCl 10 MG TABLET PO ×2 (08:05→20:04)
--- NOTE | 2024-01-26 13:16 | P.PNPSI_ITS ---
Subjective Subjective Date of Service: 01/26/24 Reason For Visit: Alzheimers Disease Subjective Notes: Conditional Voluntary Interim History: The nursing staff reported the patient slept 6 hours he has been pleasant cooperative. The social work job titles reported the healthcare proxy is going to another facility to see if he will be suitable for him. On interview the patient denies new symptoms pleasant cooperative attended to groups. Mental Status Exam Mental Status Exam Patient Appearance: Well Grooomed and Appropriate Patient Orientation: Person and Situation Level of Consciousness: Awake and Appropriate Patient Behavior: Guarded and Passive Mood Description: Calm Affect Description: Calm and Constricted Patient Cognition Impaired: Yes Ability to Follow Directions: Good Speech Pattern: Clear Hallucinations: None Delusions: Not Present Thought Content: positive for [place] and positive for Poverty of Content Judgement: Poor Diagnostics Vital Signs (24Hr): Vital Signs - 24 hr 01/25/24 19:51 01/26/24 07:55 Temperature 96.8 F 98.2 F Pulse Rate 63 68 Respiratory Rate 17 18 Blood Pressure 96/56 L 118/64 Pulse Oximetry 94 95 Oxygen Delivery Method Room Air Room Air BMI result Body Mass Index 17.2 Labs 01/02/24 07:18 Medications Medications Current Medications Acetaminophen (Acetaminophen 325 Mg Tablet) 650 mg PO Q6H PRN PRN Reason: Headache/Pain Mild Scale (1-3) Al Hydroxide/Mg Hydroxide (Magnesium Hydrox/Alum Hydrox 30 Ml Oral.Susp) 30 ml PO Q6H PRN PRN Reason: Heartburn/Nausea Donepezil HCl (Donepezil Hcl 10 Mg Tablet) 10 mg PO BEDTIME [facility] Last Admin: 01/25/24 19:55 Dose: 10 mg Folic Acid (Folic Acid 1 Mg Tablet) 1 mg PO DAILY [facility] Last Admin: 01/26/24 08:05 Dose: 1 mg Magnesium Hydroxide (Milk Of Magnesia 30 Ml Oral.Susp) 30 ml PO DAILY PRN PRN Reason: Constipation Memantine (Memantine Hcl 10 Mg Tablet) 10 mg PO BID [facility] Last Admin: 01/26/24 08:05 Dose: 10 mg Olanzapine (Olanzapine 2.5 Mg Tablet) 2.5 mg PO TID PRN PRN Reason: agitation Trazodone HCl (Trazodone Hcl 25 Mg Halftab) 25 mg PO BEDTIME MRX1 PRN PRN Reason: Insomnia Allergies Allergies Allergy/AdvReac Type Severity Reaction Status Date / Time No Known Allergies Allergy Verified 01/01/24 21:03 Assessment & Plan Assessment & Plan (1) Dementia: Status: Acute Code(s): F03.90 - Unspecified dementia, unspecified severity, without behavioral disturbance, psychotic disturbance, mood disturbance, and anxiety Plan There is a documented history of dementia and transfer paperwork. Unclear past psychiatric history in terms of admissions, medications, safety, behaviors etc.. Syrup Mixer Helper left message for his son with plan to invoke healthcare proxy as patient has clear cognitive impairment (due to dementia), does not understand conditional voluntary details, treatment recommendations etc.. Is not objecting to admission and defers to son (is HCP). Left VM for HCP to invoke same and complete CV. No response. While awaiting same, will complete S12, with view to invoking HCP and completing CV with HCP. 01/08 Mostly isolative, in his bed . He says he is okay but difficult with which to engage, giving one-word answers. Alert to self and location 01/09 No change in presentation. Patient again says he is okay. Today oriented to self but not location, however did know the day of the week Plan 1. Continue with Aricept 10 mg and Namenda 10 b.i.d.. 2. Waiting for placement. Reason for continued inpatient stay Substantial Risk for: inability to function, rapid decompensation and med/psych decompensation Time Spent With Patient Time: Total time managing care of this patient today __20__ minutes.
[2024-01-26 20:02] VITALS: BP 107/61; PULSE 74; RESP 16; TEMP 36.6; O2SAT 95
[2024-01-26] MEDS: Donepezil HCl 10 MG TABLET PO (20:04)
[2024-01-27] MEDS: Memantine HCl 10 MG TABLET PO ×2 (08:46→20:05)
[2024-01-27] MEDS: Folic Acid 1 MG TABLET PO (08:46)
[2024-01-27 08:49] VITALS: BP 107/60; PULSE 70; RESP 16; TEMP 36.8; O2SAT 96
--- NOTE | 2024-01-27 12:36 | HO.PSYCHPN ---
Subjective Subjective Date of Service: 01/27/24 Reason For Visit: Alzheimers Disease Subjective Notes: Conditional Voluntary Interim History: The nursing staff reported the patient had been compliant with treatment cooperative confused at times. He slept 8 hours. The social work instructor reported they still looking for placement. On interview the patient denies new symptoms very pleasant and cooperative Mental Status Exam Mental Status Exam Patient Appearance: Well Grooomed and Appropriate Patient Orientation: Person and Situation Level of Consciousness: Awake and Appropriate Patient Behavior: Guarded and Passive Mood Description: Withdrawn Affect Description: Constricted Patient Cognition Impaired: Yes Ability to Follow Directions: Good Speech Pattern: Clear Hallucinations: None Delusions: Not Present Thought Process: Distracted and Linear Thought Content: positive for [place] and positive for Poverty of Content Judgement: Fair Diagnostics Vital Signs (24Hr): Vital Signs - 24 hr 01/26/24 20:02 01/27/24 08:49 Temperature 97.8 F 98.2 F Pulse Rate 74 70 Respiratory Rate 16 16 Blood Pressure 107/61 107/60 Pulse Oximetry 95 96 Oxygen Delivery Method Room Air Room Air BMI result Body Mass Index 17.2 Labs 01/02/24 07:18 Medications Medications Current Medications Acetaminophen (Acetaminophen 325 Mg Tablet) 650 mg PO Q6H PRN PRN Reason: Headache/Pain Mild Scale (1-3) Al Hydroxide/Mg Hydroxide (Magnesium Hydrox/Alum Hydrox 30 Ml Oral.Susp) 30 ml PO Q6H PRN PRN Reason: Heartburn/Nausea Donepezil HCl (Donepezil Hcl 10 Mg Tablet) 10 mg PO BEDTIME [facility] Last Admin: 01/26/24 20:04 Dose: 10 mg Folic Acid (Folic Acid 1 Mg Tablet) 1 mg PO DAILY [facility] Last Admin: 01/27/24 08:46 Dose: 1 mg Magnesium Hydroxide (Milk Of Magnesia 30 Ml Oral.Susp) 30 ml PO DAILY PRN PRN Reason: Constipation Memantine (Memantine Hcl 10 Mg Tablet) 10 mg PO BID [facility] Last Admin: 01/27/24 08:46 Dose: 10 mg Olanzapine (Olanzapine 2.5 Mg Tablet) 2.5 mg PO TID PRN PRN Reason: agitation Trazodone HCl (Trazodone Hcl 25 Mg Halftab) 25 mg PO BEDTIME MRX1 PRN PRN Reason: Insomnia Allergies Allergies Allergy/AdvReac Type Severity Reaction Status Date / Time No Known Allergies Allergy Verified 01/26/24 13:17 Assessment & Plan Assessment & Plan (1) Dementia: Status: Acute Code(s): F03.90 - Unspecified dementia, unspecified severity, without behavioral disturbance, psychotic disturbance, mood disturbance, and anxiety Plan There is a documented history of dementia and transfer paperwork. Unclear past psychiatric history in terms of admissions, medications, safety, behaviors etc.. Truss Puller Helper left message for his son with plan to invoke healthcare proxy as patient has clear cognitive impairment (due to dementia), does not understand conditional voluntary details, treatment recommendations etc.. Is not objecting to admission and defers to son (is HCP). Left VM for HCP to invoke same and complete CV. No response. While awaiting same, will complete S12, with view to invoking HCP and completing CV with HCP. 01/08 Mostly isolative, in his bed . He says he is okay but difficult with which to engage, giving one-word answers. Alert to self and location 01/09 No change in presentation. Patient again says he is okay. Today oriented to self but not location, however did know the day of the week Plan 1. Continue with Aricept 10 mg and Namenda 10 b.i.d.. 2. Waiting for placement. Reason for continued inpatient stay Substantial Risk for: inability to function, rapid decompensation and med/psych decompensation Time Spent With Patient Time: Total time managing care of this patient today __20__ minutes.
--- NOTE | 2024-01-27 14:26 | MHC.CLN ---
F/U DIET=REGULAR. APPEARS TO BE EATING WELL, WITH MOST MEALS 100%. NO ADDITIONAL NUTRITION INTERVENTIONS AT THIS TIME. RD TO FOLLOW WEEKLY.
[2024-01-27 20:00] VITALS: BP 101/56; PULSE 72; RESP 14; TEMP 36.3; O2SAT 97
[2024-01-27] MEDS: Donepezil HCl 10 MG TABLET PO (20:05)
[2024-01-28 08:00] VITALS: BP 113/67; PULSE 74; RESP 16; TEMP 36.4; O2SAT 94
[2024-01-28] MEDS: Memantine HCl 10 MG TABLET PO ×2 (08:16→20:15)
[2024-01-28] MEDS: Folic Acid 1 MG TABLET PO (08:16)
--- NOTE | 2024-01-28 08:26 | HO.PSYCHPN ---
Subjective Subjective Date of Service: 01/28/24 Reason For Visit: Alzheimers Disease Subjective Notes: Conditional Voluntary Interim History: The nursing staff reported the patient had been pleasant cooperative, confused but easily redirectable he had attended several groups. On interview the patient denies new symptoms, waiting for placement. Mental Status Exam Mental Status Exam Patient Appearance: Well Grooomed and Appropriate Patient Orientation: Person and Situation Level of Consciousness: Awake and Appropriate Patient Behavior: Guarded and Passive Mood Description: Withdrawn Affect Description: Constricted Patient Cognition Impaired: Yes Ability to Follow Directions: Good Speech Pattern: Clear Hallucinations: None Delusions: Not Present Thought Process: Distracted and Slowed Thinking Thought Content: positive for [place] and positive for Poverty of Content Judgement: Fair Diagnostics Vital Signs (24Hr): Vital Signs - 24 hr 01/27/24 08:49 01/27/24 20:00 01/28/24 08:00 Temperature 98.2 F 97.3 F 97.6 F Pulse Rate 70 72 74 Respiratory Rate 16 14 16 Blood Pressure 107/60 101/56 L 113/67 Pulse Oximetry 96 97 94 Oxygen Delivery Method Room Air Room Air Room Air BMI result Body Mass Index 17.2 Labs 01/02/24 07:18 Medications Medications Current Medications Acetaminophen (Acetaminophen 325 Mg Tablet) 650 mg PO Q6H PRN PRN Reason: Headache/Pain Mild Scale (1-3) Al Hydroxide/Mg Hydroxide (Magnesium Hydrox/Alum Hydrox 30 Ml Oral.Susp) 30 ml PO Q6H PRN PRN Reason: Heartburn/Nausea Donepezil HCl (Donepezil Hcl 10 Mg Tablet) 10 mg PO BEDTIME [facility] Last Admin: 01/27/24 20:05 Dose: 10 mg Folic Acid (Folic Acid 1 Mg Tablet) 1 mg PO DAILY [facility] Last Admin: 01/28/24 08:16 Dose: 1 mg Magnesium Hydroxide (Milk Of Magnesia 30 Ml Oral.Susp) 30 ml PO DAILY PRN PRN Reason: Constipation Memantine (Memantine Hcl 10 Mg Tablet) 10 mg PO BID [facility] Last Admin: 01/28/24 08:16 Dose: 10 mg Olanzapine (Olanzapine 2.5 Mg Tablet) 2.5 mg PO TID PRN PRN Reason: agitation Trazodone HCl (Trazodone Hcl 25 Mg Halftab) 25 mg PO BEDTIME MRX1 PRN PRN Reason: Insomnia Allergies Allergies Allergy/AdvReac Type Severity Reaction Status Date / Time No Known Allergies Allergy Verified 01/26/24 13:17 Assessment & Plan Assessment & Plan (1) Dementia: Status: Acute Code(s): F03.90 - Unspecified dementia, unspecified severity, without behavioral disturbance, psychotic disturbance, mood disturbance, and anxiety Plan There is a documented history of dementia and transfer paperwork. Unclear past psychiatric history in terms of admissions, medications, safety, behaviors etc.. In Home Sales Consultant left message for his son with plan to invoke healthcare proxy as patient has clear cognitive impairment (due to dementia), does not understand conditional voluntary details, treatment recommendations etc.. Is not objecting to admission and defers to son (is HCP). Left VM for HCP to invoke same and complete CV. No response. While awaiting same, will complete S12, with view to invoking HCP and completing CV with HCP. 01/08 Mostly isolative, in his bed . He says he is okay but difficult with which to engage, giving one-word answers. Alert to self and location 01/09 No change in presentation. Patient again says he is okay. Today oriented to self but not location, however did know the day of the week Plan 1. Continue with Aricept 10 mg and Namenda 10 b.i.d.. 2. Waiting for placement. Reason for continued inpatient stay Substantial Risk for: inability to function, rapid decompensation and med/psych decompensation Time Spent With Patient Time: Total time managing care of this patient today __20__ minutes.
[2024-01-28 16:12] VITALS: BMI 17.4
[2024-01-28] MEDS: Donepezil HCl 10 MG TABLET PO (20:15)
[2024-01-28 20:36] VITALS: BP 99/55; PULSE 60; RESP 15; TEMP 36.2; O2SAT 95
[2024-01-29 08:11] VITALS: BP 117/78; PULSE 67; RESP 16; TEMP 36.4; O2SAT 95
[2024-01-29] MEDS: Folic Acid 1 MG TABLET PO (08:13)
[2024-01-29] MEDS: Memantine HCl 10 MG TABLET PO ×2 (08:14→20:17)
--- NOTE | 2024-01-29 15:28 | HO.PSYCHPN ---
Subjective Subjective Date of Service: 01/29/24 Reason For Visit: Alzheimers Disease Interim History: resting comfortably in bed. no requests or complaints. per staff, no notable events overnight. Mental Status Exam Mental Status Exam Patient Appearance: Well Grooomed and Appropriate Patient Orientation: Person and Situation Level of Consciousness: Awake and Appropriate Patient Behavior: Guarded and Passive Mood Description: Withdrawn Affect Description: Constricted Patient Cognition Impaired: Yes Ability to Follow Directions: Good Speech Pattern: Clear Hallucinations: None Delusions: Not Present Thought Process: Distracted and Slowed Thinking Thought Content: positive for [place] and positive for Poverty of Content Judgement: Fair Diagnostics Vital Signs (24Hr): Vital Signs - 24 hr 01/28/24 20:36 01/29/24 08:11 Temperature 97.2 F 97.5 F Pulse Rate 60 67 Respiratory Rate 15 16 Blood Pressure 99/55 L 117/78 Pulse Oximetry 95 95 Oxygen Delivery Method Room Air Room Air BMI result Body Mass Index 17.4 Labs 01/02/24 07:18 Medications Medications Current Medications Acetaminophen (Acetaminophen 325 Mg Tablet) 650 mg PO Q6H PRN PRN Reason: Headache/Pain Mild Scale (1-3) Al Hydroxide/Mg Hydroxide (Magnesium Hydrox/Alum Hydrox 30 Ml Oral.Susp) 30 ml PO Q6H PRN PRN Reason: Heartburn/Nausea Donepezil HCl (Donepezil Hcl 10 Mg Tablet) 10 mg PO BEDTIME [facility] Last Admin: 01/28/24 20:15 Dose: 10 mg Folic Acid (Folic Acid 1 Mg Tablet) 1 mg PO DAILY [facility] Last Admin: 01/29/24 08:13 Dose: 1 mg Magnesium Hydroxide (Milk Of Magnesia 30 Ml Oral.Susp) 30 ml PO DAILY PRN PRN Reason: Constipation Memantine (Memantine Hcl 10 Mg Tablet) 10 mg PO BID [facility] Last Admin: 01/29/24 08:14 Dose: 10 mg Olanzapine (Olanzapine 2.5 Mg Tablet) 2.5 mg PO TID PRN PRN Reason: agitation Trazodone HCl (Trazodone Hcl 25 Mg Halftab) 25 mg PO BEDTIME MRX1 PRN PRN Reason: Insomnia Allergies Allergies Allergy/AdvReac Type Severity Reaction Status Date / Time No Known Allergies Allergy Verified 01/26/24 13:17 Assessment & Plan Assessment & Plan (1) Dementia: Status: Acute Code(s): F03.90 - Unspecified dementia, unspecified severity, without behavioral disturbance, psychotic disturbance, mood disturbance, and anxiety Plan There is a documented history of dementia and transfer paperwork. Unclear past psychiatric history in terms of admissions, medications, safety, behaviors etc.. Saddle And Harness Maker left message for his son with plan to invoke healthcare proxy as patient has clear cognitive impairment (due to dementia), does not understand conditional voluntary details, treatment recommendations etc.. Is not objecting to admission and defers to son (is HCP). Left VM for HCP to invoke same and complete CV. No response. While awaiting same, will complete S12, with view to invoking HCP and completing CV with HCP. 01/08 Mostly isolative, in his bed . He says he is okay but difficult with which to engage, giving one-word answers. Alert to self and location 01/09 No change in presentation. Patient again says he is okay. Today oriented to self but not location, however did know the day of the week Plan 1. Continue with Aricept 10 mg and Namenda 10 b.i.d.. 2. Waiting for placement. Reason for continued inpatient stay Substantial Risk for: inability to function Time Spent With Patient Time: Total time managing care of this patient today ____ minutes.
[2024-01-29] MEDS: Donepezil HCl 10 MG TABLET PO (20:16)
[2024-01-29 20:36] VITALS: BP 101/63; PULSE 70; RESP 14; TEMP 36.4; O2SAT 93
[2024-01-30 07:55] VITALS: BP 100/72; PULSE 63; RESP 18; TEMP 36.8; O2SAT 63
[2024-01-30] MEDS: Memantine HCl 10 MG TABLET PO ×2 (08:26→20:38)
[2024-01-30] MEDS: Folic Acid 1 MG TABLET PO (08:26)
--- NOTE | 2024-01-30 14:38 | HO.PSYCHPN ---
Subjective Subjective Date of Service: 01/30/24 Reason For Visit: Alzheimers Disease Interim History: Patient was social engaged on the unit not overly agitated. Medication Compliance: Yes Mental Status Exam Mental Status Exam Patient Appearance: Well Grooomed and Appropriate Patient Orientation: Person and Situation Level of Consciousness: Awake and Appropriate Patient Behavior: Guarded and Passive Mood Description: Withdrawn Affect Description: Constricted Patient Cognition Impaired: Yes Ability to Follow Directions: Good Speech Pattern: Clear Hallucinations: None Delusions: Not Present Thought Process: Distracted and Slowed Thinking Thought Content: positive for [place] and positive for Poverty of Content Judgement: Fair Diagnostics Vital Signs (24Hr): Vital Signs - 24 hr 01/29/24 20:36 01/30/24 07:55 Temperature 97.6 F 98.2 F Pulse Rate 70 63 Respiratory Rate 14 18 Blood Pressure 101/63 100/72 Pulse Oximetry 93 63 L Oxygen Delivery Method Room Air Room Air BMI result Body Mass Index 17.4 Labs 01/02/24 07:18 Medications Medications Current Medications Acetaminophen (Acetaminophen 325 Mg Tablet) 650 mg PO Q6H PRN PRN Reason: Headache/Pain Mild Scale (1-3) Al Hydroxide/Mg Hydroxide (Magnesium Hydrox/Alum Hydrox 30 Ml Oral.Susp) 30 ml PO Q6H PRN PRN Reason: Heartburn/Nausea Donepezil HCl (Donepezil Hcl 10 Mg Tablet) 10 mg PO BEDTIME [facility] Last Admin: 01/29/24 20:16 Dose: 10 mg Folic Acid (Folic Acid 1 Mg Tablet) 1 mg PO DAILY [facility] Last Admin: 01/30/24 08:26 Dose: 1 mg Magnesium Hydroxide (Milk Of Magnesia 30 Ml Oral.Susp) 30 ml PO DAILY PRN PRN Reason: Constipation Memantine (Memantine Hcl 10 Mg Tablet) 10 mg PO BID [facility] Last Admin: 01/30/24 08:26 Dose: 10 mg Olanzapine (Olanzapine 2.5 Mg Tablet) 2.5 mg PO TID PRN PRN Reason: agitation Trazodone HCl (Trazodone Hcl 25 Mg Halftab) 25 mg PO BEDTIME MRX1 PRN PRN Reason: Insomnia Allergies Allergies Allergy/AdvReac Type Severity Reaction Status Date / Time No Known Allergies Allergy Verified 01/26/24 13:17 Assessment & Plan Assessment & Plan (1) Dementia: Status: Acute Code(s): F03.90 - Unspecified dementia, unspecified severity, without behavioral disturbance, psychotic disturbance, mood disturbance, and anxiety Plan There is a documented history of dementia and transfer paperwork. Unclear past psychiatric history in terms of admissions, medications, safety, behaviors etc.. Meal Packer left message for his son with plan to invoke healthcare proxy as patient has clear cognitive impairment (due to dementia), does not understand conditional voluntary details, treatment recommendations etc.. Is not objecting to admission and defers to son (is HCP). Left VM for HCP to invoke same and complete CV. No response. While awaiting same, will complete S12, with view to invoking HCP and completing CV with HCP. 01/08 Mostly isolative, in his bed . He says he is okay but difficult with which to engage, giving one-word answers. Alert to self and location 01/09 No change in presentation. Patient again says he is okay. Today oriented to self but not location, however did know the day of the week Plan 1. Continue with Aricept 10 mg and Namenda 10 b.i.d.. 2. Waiting for placement. 01/30/2024 Continue plan of care patient somewhat confused and sexualized at times responds to redirection Reason for continued inpatient stay Substantial Risk for: inability to function and rapid decompensation Time Spent With Patient Time: Total time managing care of this patient today ____ minutes.
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
[2024-01-30 20:00] VITALS: BP 91/53; PULSE 83; RESP 16; TEMP 36.3; O2SAT 94
[2024-01-30] MEDS: Donepezil HCl 10 MG TABLET PO (20:38)
[2024-01-31 08:15] VITALS: BP 97/66; PULSE 68; RESP 18; TEMP 36.2; O2SAT 96
[2024-01-31] MEDS: Memantine HCl 10 MG TABLET PO ×2 (09:30→20:15)
[2024-01-31] MEDS: Folic Acid 1 MG TABLET PO (09:30)
[2024-01-31 20:00] VITALS: BP 96/53; PULSE 60; RESP 16; TEMP 36.6; O2SAT 94
[2024-01-31] MEDS: traZODone HCL 25 MG HALFTAB PO (20:15)
[2024-01-31] MEDS: OLANZapine 2.5 MG TABLET PO (20:15)
[2024-01-31] MEDS: Donepezil HCl 10 MG TABLET PO (20:15)
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
[2024-02-01 07:32] VITALS: BP 121/69; PULSE 65; RESP 18; TEMP 36.3; O2SAT 97
[2024-02-01] MEDS: Folic Acid 1 MG TABLET PO (08:03)
[2024-02-01] MEDS: Memantine HCl 10 MG TABLET PO ×2 (08:03→20:54)
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
[2024-02-01 20:00] VITALS: BP 96/58; PULSE 61; RESP 16; TEMP 37.3; O2SAT 95
[2024-02-01] MEDS: traZODone HCL 25 MG HALFTAB PO (20:54)
[2024-02-01] MEDS: Donepezil HCl 10 MG TABLET PO (20:54)
[2024-02-01] MEDS: OLANZapine 2.5 MG TABLET PO (20:54)
[2024-02-02 08:10] VITALS: BP 109/63; PULSE 65; RESP 16; TEMP 36.4; O2SAT 94
[2024-02-02] MEDS: Folic Acid 1 MG TABLET PO (08:13)
[2024-02-02] MEDS: Memantine HCl 10 MG TABLET PO ×2 (08:13→20:14)
--- NOTE | 2024-02-02 12:28 | P.PNPSI_ITS ---
Subjective Subjective Date of Service: 02/02/24 Reason For Visit: Alzheimers Disease Subjective Notes: Conditional Voluntary Interim History: The nursing staff reported that he has been compliant with treatment, pleasantly confused, visible in the unit. On interview, he denies new symptoms, waiting for placement. Mental Status Exam Mental Status Exam Patient Appearance: Appropriate Patient Orientation: Person and Situation Level of Consciousness: Awake Patient Behavior: Guarded and Passive Mood Description: Withdrawn Affect Description: Calm Patient Cognition Impaired: Yes Ability to Follow Directions: Good Speech Pattern: Clear Hallucinations: None Delusions: Not Present Thought Process: Slowed Thinking Thought Content: positive for [place] and positive for Poverty of Content Judgement: Fair Diagnostics Vital Signs (24Hr): Vital Signs - 24 hr 02/01/24 20:00 02/02/24 08:10 Temperature 99.2 F 97.5 F Pulse Rate 61 65 Respiratory Rate 16 16 Blood Pressure 96/58 L 109/63 Pulse Oximetry 95 94 Oxygen Delivery Method Room Air Room Air BMI result Body Mass Index 17.4 Labs 01/02/24 07:18 Medications Medications Current Medications Acetaminophen (Acetaminophen 325 Mg Tablet) 650 mg PO Q6H PRN PRN Reason: Headache/Pain Mild Scale (1-3) Al Hydroxide/Mg Hydroxide (Magnesium Hydrox/Alum Hydrox 30 Ml Oral.Susp) 30 ml PO Q6H PRN PRN Reason: Heartburn/Nausea Donepezil HCl (Donepezil Hcl 10 Mg Tablet) 10 mg PO BEDTIME [facility] Last Admin: 02/01/24 20:54 Dose: 10 mg Folic Acid (Folic Acid 1 Mg Tablet) 1 mg PO DAILY [facility] Last Admin: 02/02/24 08:13 Dose: 1 mg Magnesium Hydroxide (Milk Of Magnesia 30 Ml Oral.Susp) 30 ml PO DAILY PRN PRN Reason: Constipation Memantine (Memantine Hcl 10 Mg Tablet) 10 mg PO BID [facility] Last Admin: 02/02/24 08:13 Dose: 10 mg Olanzapine (Olanzapine 2.5 Mg Tablet) 2.5 mg PO TID PRN PRN Reason: agitation Last Admin: 02/01/24 20:54 Dose: 2.5 mg Trazodone HCl (Trazodone Hcl 25 Mg Halftab) 25 mg PO BEDTIME MRX1 PRN PRN Reason: Insomnia Last Admin: 02/01/24 20:54 Dose: 25 mg Allergies Allergies Allergy/AdvReac Type Severity Reaction Status Date / Time No Known Allergies Allergy Verified 01/26/24 13:17 Assessment & Plan Assessment & Plan (1) Dementia: Status: Acute Code(s): F03.90 - Unspecified dementia, unspecified severity, without behavioral disturbance, psychotic disturbance, mood disturbance, and anxiety Plan There is a documented history of dementia and transfer paperwork. Unclear past psychiatric history in terms of admissions, medications, safety, behaviors etc.. Criminal Justice Faculty left message for his son with plan to invoke healthcare proxy as patient has clear cognitive impairment (due to dementia), does not understand conditional voluntary details, treatment recommendations etc.. Is not objecting to admission and defers to son (is HCP). Left VM for HCP to invoke same and complete CV. No response. While awaiting same, will complete S12, with view to invoking HCP and completing CV with HCP. 01/08 Mostly isolative, in his bed . He says he is okay but difficult with which to engage, giving one-word answers. Alert to self and location 01/09 No change in presentation. Patient again says he is okay. Today oriented to self but not location, however did know the day of the week Plan 1. Gather collateral information. 2. Start Aricept 5 mg p.o. q.h.s. to target dementia. We will try to go up to 10 mg and then add Namenda since he is [place] is 1430 and his Adrian test is 3.4. Namenda started on January 10 3. Continue with medical treatment. Reason for continued inpatient stay Substantial Risk for: inability to function, rapid decompensation and med/psych decompensation Time Spent With Patient Time: Total time managing care of this patient today _20___ minutes.
[2024-02-02 20:00] VITALS: BP 111/62; PULSE 60; RESP 16; TEMP 36.2; O2SAT 96
[2024-02-02] MEDS: Donepezil HCl 10 MG TABLET PO (20:14)
[2024-02-02] MEDS: traZODone HCL 25 MG HALFTAB PO (20:14)
[2024-02-03 08:00] VITALS: BP 112/80; PULSE 69; RESP 16; TEMP 36; O2SAT 96
[2024-02-03] MEDS: Memantine HCl 10 MG TABLET PO ×2 (08:11→20:19)
[2024-02-03] MEDS: Folic Acid 1 MG TABLET PO (08:11)
[2024-02-03] MEDS: Divalproex Sodium Sprinkles 125 MG CAP.DR.SPR PO ×2 (09:09→20:19)
--- NOTE | 2024-02-03 11:58 | MHC.CLN ---
F/U DIET=REGULAR. APPEARS TO BE EATING WELL, WITH MOST MEALS 100%. WEIGHT ON 01/27=56.7 KG, WITH BMI=17.4. FAVORABLE 4% WEIGHT GAIN SINCE ADMISSION. NO ADDITIONAL NUTRITION INTERVENTIONS AT THIS TIME. RD TO FOLLOW WEEKLY.
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
[2024-02-03 20:00] VITALS: BP 118/63; PULSE 64; RESP 16; TEMP 36.3; O2SAT 96
[2024-02-03] MEDS: Donepezil HCl 10 MG TABLET PO (20:19)
[2024-02-03] MEDS: traZODone HCL 25 MG HALFTAB PO (20:19)
[2024-02-04] MEDS: traZODone HCL 25 MG HALFTAB PO (00:05)
[2024-02-04] MEDS: OLANZapine 2.5 MG TABLET PO (00:05)
[2024-02-04 07:00] VITALS: BMI 17.8
[2024-02-04 08:00] VITALS: BP 92/54; PULSE 61; RESP 18; TEMP 36.7; O2SAT 94
[2024-02-04] MEDS: Folic Acid 1 MG TABLET PO (09:02)
[2024-02-04] MEDS: Memantine HCl 10 MG TABLET PO ×2 (09:02→19:59)
[2024-02-04] MEDS: Divalproex Sodium Sprinkles 125 MG CAP.DR.SPR PO ×2 (09:02→19:59)
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
[2024-02-04] MEDS: Donepezil HCl 10 MG TABLET PO (19:59)
[2024-02-04 20:00] VITALS: BP 109/85; PULSE 72; RESP 16; TEMP 36.1; O2SAT 93
[2024-02-05 08:00] VITALS: BP 119/70; PULSE 86; RESP 16; TEMP 36.3; O2SAT 95
[2024-02-05] MEDS: Folic Acid 1 MG TABLET PO (08:27)
[2024-02-05] MEDS: Memantine HCl 10 MG TABLET PO ×2 (08:27→19:51)
[2024-02-05] MEDS: Divalproex Sodium Sprinkles 125 MG CAP.DR.SPR PO ×2 (08:27→19:51)
--- NOTE | 2024-02-05 12:59 | HO.PSYCHPN ---
Subjective Subjective Date of Service: 02/05/24 Reason For Visit: Alzheimers Disease Subjective Notes: Conditional Voluntary Interim History: The nursing staff reported the patient had been confused pleasant no new behaviors he slept well. 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 On interview the patient denies new symptoms, pleasantly confused easily redirectable. Mental Status Exam Mental Status Exam Patient Appearance: Well Grooomed and Appropriate Patient Orientation: Person and Situation Level of Consciousness: Awake and Appropriate Patient Behavior: Guarded and Passive Mood Description: Withdrawn Affect Description: Constricted Patient Cognition Impaired: Yes Ability to Follow Directions: Good Speech Pattern: Clear Hallucinations: None Delusions: Not Present Thought Process: Distracted Thought Content: positive for [place] and positive for Poverty of Content Judgement: Fair Diagnostics Vital Signs (24Hr): Vital Signs - 24 hr 02/04/24 20:00 02/05/24 08:00 Temperature 97 F 97.4 F Pulse Rate 72 86 Respiratory Rate 16 16 Blood Pressure 109/85 119/70 Pulse Oximetry 93 95 Oxygen Delivery Method Room Air Room Air BMI result Body Mass Index 17.8 Labs 01/02/24 07:18 Medications Medications Current Medications Acetaminophen (Acetaminophen 325 Mg Tablet) 650 mg PO Q6H PRN PRN Reason: Headache/Pain Mild Scale (1-3) Al Hydroxide/Mg Hydroxide (Magnesium Hydrox/Alum Hydrox 30 Ml Oral.Susp) 30 ml PO Q6H PRN PRN Reason: Heartburn/Nausea Divalproex Sodium (Divalproex Sodium Sprinkles 125 Mg ) 125 mg PO BID [facility] Last Admin: 02/05/24 08:27 Dose: 125 mg Donepezil HCl (Donepezil Hcl 10 Mg Tablet) 10 mg PO BEDTIME [facility] Last Admin: 02/04/24 19:59 Dose: 10 mg Folic Acid (Folic Acid 1 Mg Tablet) 1 mg PO DAILY [facility] Last Admin: 02/05/24 08:27 Dose: 1 mg Magnesium Hydroxide (Milk Of Magnesia 30 Ml Oral.Susp) 30 ml PO DAILY PRN PRN Reason: Constipation Memantine (Memantine Hcl 10 Mg Tablet) 10 mg PO BID [facility] Last Admin: 02/05/24 08:27 Dose: 10 mg Olanzapine (Olanzapine 2.5 Mg Tablet) 2.5 mg PO TID PRN PRN Reason: agitation Last Admin: 02/04/24 00:05 Dose: 2.5 mg Trazodone HCl (Trazodone Hcl 25 Mg Halftab) 25 mg PO BEDTIME MRX1 PRN PRN Reason: Insomnia Last Admin: 02/04/24 00:05 Dose: 25 mg Allergies Allergies Allergy/AdvReac Type Severity Reaction Status Date / Time No Known Allergies Allergy Verified 01/26/24 13:17 Assessment & Plan Assessment & Plan (1) Dementia: Status: Acute Code(s): F03.90 - Unspecified dementia, unspecified severity, without behavioral disturbance, psychotic disturbance, mood disturbance, and anxiety Plan There is a documented history of dementia and transfer paperwork. Unclear past psychiatric history in terms of admissions, medications, safety, behaviors etc.. Film Archivist left message for his son with plan to invoke healthcare proxy as patient has clear cognitive impairment (due to dementia), does not understand conditional voluntary details, treatment recommendations etc.. Is not objecting to admission and defers to son (is HCP). Left VM for HCP to invoke same and complete CV. No response. While awaiting same, will complete S12, with view to invoking HCP and completing CV with HCP. 01/08 Mostly isolative, in his bed . He says he is okay but difficult with which to engage, giving one-word answers. Alert to self and location 01/09 No change in presentation. Patient again says he is okay. Today oriented to self but not location, however did know the day of the week Plan 1. Gather collateral information. 2. Start Aricept 5 mg p.o. q.h.s. to target dementia. We will try to go up to 10 mg and then add Namenda since he is [place] is and his Adrian test is 3.4. Namenda started on January 10 3. Continue with medical treatment. 4. Start Depakote 125 p.o. b.i.d. to target disinhibition. Reason for continued inpatient stay Substantial Risk for: inability to function, rapid decompensation and med/psych decompensation Time Spent With Patient Time: Total time managing care of this patient today __20__ minutes.
[2024-02-05] MEDS: OLANZapine 2.5 MG TABLET PO (19:50)
[2024-02-05] MEDS: traZODone HCL 25 MG HALFTAB PO (19:50)
[2024-02-05] MEDS: Donepezil HCl 10 MG TABLET PO (19:50)
[2024-02-05 20:00] VITALS: BP 121/62; PULSE 70; RESP 18; TEMP 36.3; O2SAT 94
[2024-02-06 08:00] VITALS: BP 120/72; PULSE 71; RESP 18; TEMP 36.4; O2SAT 95
[2024-02-06] MEDS: Memantine HCl 10 MG TABLET PO ×2 (08:50→20:44)
[2024-02-06] MEDS: Folic Acid 1 MG TABLET PO (08:50)
[2024-02-06] MEDS: Divalproex Sodium Sprinkles 125 MG CAP.DR.SPR PO ×2 (08:50→20:44)
--- NOTE | 2024-02-06 10:29 | HO.PSYCHPN ---
Subjective Subjective Date of Service: 02/06/24 Reason For Visit: Alzheimers Disease Subjective Notes: Conditional Voluntary Interim History: Patient was seen and discussed in rounds today. Records and plans were reviewed. He continues to be cognitively impaired, sometimes more confused. Eating and sleeping adequately. No complaints or side effects. No dangerous behaviors. No changes were made today Review of Systems Review of Systems Yes all other systems are reviewed and are negative Mental Status Exam Mental Status Exam Patient Appearance: Well Grooomed and Appropriate Patient Orientation: Person and Situation Level of Consciousness: Awake and Appropriate Patient Behavior: Guarded and Passive Mood Description: Withdrawn Affect Description: Constricted Patient Cognition Impaired: Yes Ability to Follow Directions: Good Speech Pattern: Clear Hallucinations: None Delusions: Not Present Thought Process: Distracted Thought Content: positive for [place] and positive for Poverty of Content Judgement: Fair Diagnostics Vital Signs (24Hr): Vital Signs - 24 hr 02/05/24 20:00 Temperature 97.3 F Pulse Rate 70 Respiratory Rate 18 Blood Pressure 121/62 Pulse Oximetry 94 Oxygen Delivery Method Room Air BMI result Body Mass Index 17.8 Labs 01/02/24 07:18 Medications Medications Current Medications Acetaminophen (Acetaminophen 325 Mg Tablet) 650 mg PO Q6H PRN PRN Reason: Headache/Pain Mild Scale (1-3) Al Hydroxide/Mg Hydroxide (Magnesium Hydrox/Alum Hydrox 30 Ml Oral.Susp) 30 ml PO Q6H PRN PRN Reason: Heartburn/Nausea Divalproex Sodium (Divalproex Sodium Sprinkles 125 Mg ) 125 mg PO BID [facility] Last Admin: 02/06/24 08:50 Dose: 125 mg Donepezil HCl (Donepezil Hcl 10 Mg Tablet) 10 mg PO BEDTIME [facility] Last Admin: 02/05/24 19:50 Dose: 10 mg Folic Acid (Folic Acid 1 Mg Tablet) 1 mg PO DAILY [facility] Last Admin: 02/06/24 08:50 Dose: 1 mg Magnesium Hydroxide (Milk Of Magnesia 30 Ml Oral.Susp) 30 ml PO DAILY PRN PRN Reason: Constipation Memantine (Memantine Hcl 10 Mg Tablet) 10 mg PO BID [facility] Last Admin: 02/06/24 08:50 Dose: 10 mg Olanzapine (Olanzapine 2.5 Mg Tablet) 2.5 mg PO TID PRN PRN Reason: agitation Last Admin: 02/05/24 19:50 Dose: 2.5 mg Trazodone HCl (Trazodone Hcl 25 Mg Halftab) 25 mg PO BEDTIME MRX1 PRN PRN Reason: Insomnia Last Admin: 02/05/24 19:50 Dose: 25 mg Allergies Allergies Allergy/AdvReac Type Severity Reaction Status Date / Time No Known Allergies Allergy Verified 01/26/24 13:17 Assessment & Plan Assessment & Plan (1) Dementia: Status: Acute Code(s): F03.90 - Unspecified dementia, unspecified severity, without behavioral disturbance, psychotic disturbance, mood disturbance, and anxiety Plan There is a documented history of dementia and transfer paperwork. Unclear past psychiatric history in terms of admissions, medications, safety, behaviors etc.. Ground Crew Lines Person left message for his son with plan to invoke healthcare proxy as patient has clear cognitive impairment (due to dementia), does not understand conditional voluntary details, treatment recommendations etc.. Is not objecting to admission and defers to son (is HCP). Left VM for HCP to invoke same and complete CV. No response. While awaiting same, will complete S12, with view to invoking HCP and completing CV with HCP. 01/08 Mostly isolative, in his bed . He says he is okay but difficult with which to engage, giving one-word answers. Alert to self and location 01/09 No change in presentation. Patient again says he is okay. Today oriented to self but not location, however did know the day of the week Plan 1. Gather collateral information. 2. Start Aricept 5 mg p.o. q.h.s. to target dementia. We will try to go up to 10 mg and then add Namenda since he is [place] is and his Adrian test is 3.4. Namenda started on January 10 3. Continue with medical treatment. 4. Start Depakote 125 p.o. b.i.d. to target disinhibition. 02/05: Continue current treatment and plan Reason for continued inpatient stay Substantial Risk for: inability to function Time Spent With Patient Time: Total time managing care of this patient today ____ minutes.
[2024-02-06 20:00] VITALS: BP 104/61; PULSE 72; RESP 18; TEMP 36.3; O2SAT 97
[2024-02-06] MEDS: Donepezil HCl 10 MG TABLET PO (20:44)
[2024-02-06] MEDS: traZODone HCL 25 MG HALFTAB PO (20:44)
[2024-02-07 08:00] VITALS: BP 131/57; PULSE 81; RESP 18; TEMP 36.2; O2SAT 94
[2024-02-07] MEDS: Divalproex Sodium Sprinkles 125 MG CAP.DR.SPR PO ×2 (08:04→20:38)
[2024-02-07] MEDS: Memantine HCl 10 MG TABLET PO ×2 (08:04→20:39)
[2024-02-07] MEDS: Folic Acid 1 MG TABLET PO (08:04)
--- NOTE | 2024-02-07 10:43 | HO.PSYCHPN ---
Subjective Subjective Date of Service: 02/07/24 Reason For Visit: Alzheimers Disease Subjective Notes: Conditional Voluntary Interim History: Patient was seen and discussed in rounds today. Records and plans were reviewed. He has been stable with no behavioral issues. Eating and sleeping well. No complaints or side effects. No changes were made today Review of Systems Review of Systems Yes all other systems are reviewed and are negative Mental Status Exam Mental Status Exam Patient Appearance: Well Grooomed and Appropriate Patient Orientation: Person and Situation Level of Consciousness: Awake and Appropriate Patient Behavior: Guarded and Passive Mood Description: Withdrawn Affect Description: Constricted Patient Cognition Impaired: Yes Ability to Follow Directions: Good Speech Pattern: Clear Hallucinations: None Delusions: Not Present Thought Process: Distracted Thought Content: positive for [place] and positive for Poverty of Content Judgement: Fair Diagnostics Vital Signs (24Hr): Vital Signs - 24 hr 02/06/24 20:00 02/07/24 08:00 Temperature 97.3 F 97.2 F Pulse Rate 72 81 Respiratory Rate 18 18 Blood Pressure 104/61 131/57 L Pulse Oximetry 97 94 Oxygen Delivery Method Room Air Room Air BMI result Body Mass Index 17.8 Labs 01/02/24 07:18 Medications Medications Current Medications Acetaminophen (Acetaminophen 325 Mg Tablet) 650 mg PO Q6H PRN PRN Reason: Headache/Pain Mild Scale (1-3) Al Hydroxide/Mg Hydroxide (Magnesium Hydrox/Alum Hydrox 30 Ml Oral.Susp) 30 ml PO Q6H PRN PRN Reason: Heartburn/Nausea Divalproex Sodium (Divalproex Sodium Sprinkles 125 Mg ) 125 mg PO BID [facility] Last Admin: 02/07/24 08:04 Dose: 125 mg Donepezil HCl (Donepezil Hcl 10 Mg Tablet) 10 mg PO BEDTIME [facility] Last Admin: 02/06/24 20:44 Dose: 10 mg Folic Acid (Folic Acid 1 Mg Tablet) 1 mg PO DAILY [facility] Last Admin: 02/07/24 08:04 Dose: 1 mg Magnesium Hydroxide (Milk Of Magnesia 30 Ml Oral.Susp) 30 ml PO DAILY PRN PRN Reason: Constipation Memantine (Memantine Hcl 10 Mg Tablet) 10 mg PO BID [facility] Last Admin: 02/07/24 08:04 Dose: 10 mg Olanzapine (Olanzapine 2.5 Mg Tablet) 2.5 mg PO TID PRN PRN Reason: agitation Last Admin: 02/05/24 19:50 Dose: 2.5 mg Trazodone HCl (Trazodone Hcl 25 Mg Halftab) 25 mg PO BEDTIME MRX1 PRN PRN Reason: Insomnia Last Admin: 02/06/24 20:44 Dose: 25 mg Allergies Allergies Allergy/AdvReac Type Severity Reaction Status Date / Time No Known Allergies Allergy Verified 01/26/24 13:17 Assessment & Plan Assessment & Plan (1) Dementia: Status: Acute Code(s): F03.90 - Unspecified dementia, unspecified severity, without behavioral disturbance, psychotic disturbance, mood disturbance, and anxiety Plan There is a documented history of dementia and transfer paperwork. Unclear past psychiatric history in terms of admissions, medications, safety, behaviors etc.. Booker left message for his son with plan to invoke healthcare proxy as patient has clear cognitive impairment (due to dementia), does not understand conditional voluntary details, treatment recommendations etc.. Is not objecting to admission and defers to son (is HCP). Left VM for HCP to invoke same and complete CV. No response. While awaiting same, will complete S12, with view to invoking HCP and completing CV with HCP. 01/08 Mostly isolative, in his bed . He says he is okay but difficult with which to engage, giving one-word answers. Alert to self and location 01/09 No change in presentation. Patient again says he is okay. Today oriented to self but not location, however did know the day of the week Plan 1. Gather collateral information. 2. Start Aricept 5 mg p.o. q.h.s. to target dementia. We will try to go up to 10 mg and then add Namenda since he is [place] is and his Adrian test is 3.4. Namenda started on January 10 3. Continue with medical treatment. 4. Start Depakote 125 p.o. b.i.d. to target disinhibition. 02/05: Continue current treatment and plan 02/06: Continue current regimen and plans Reason for continued inpatient stay Substantial Risk for: inability to function Time Spent With Patient Time: Total time managing care of this patient today ____ minutes.
[2024-02-07 20:00] VITALS: BP 103/52; PULSE 67; RESP 16; TEMP 37; O2SAT 95
[2024-02-07] MEDS: Donepezil HCl 10 MG TABLET PO (20:38)
[2024-02-08 08:00] VITALS: BP 115/67; PULSE 67; RESP 18; TEMP 36.3; O2SAT 94
[2024-02-08] MEDS: Folic Acid 1 MG TABLET PO (08:05)
[2024-02-08] MEDS: Memantine HCl 10 MG TABLET PO ×2 (08:05→21:11)
[2024-02-08] MEDS: Divalproex Sodium Sprinkles 125 MG CAP.DR.SPR PO ×2 (08:05→21:11)
--- NOTE | 2024-02-08 12:10 | P.PNPSI_ITS ---
Subjective Subjective Date of Service: 02/08/24 Reason For Visit: Alzheimers Disease Subjective Notes: Conditional Voluntary Interim History: The nursing staff reported no changes in his mental status. He slept 8 hours. On interview the patient denies new symptoms, waiting for placement. Mental Status Exam Mental Status Exam Patient Appearance: Appropriate Patient Orientation: Person and Situation Level of Consciousness: Awake and Appropriate Patient Behavior: Guarded and Passive Mood Description: Withdrawn Affect Description: Constricted Patient Cognition Impaired: Yes Ability to Follow Directions: Good Speech Pattern: Clear Hallucinations: None Delusions: Not Present Thought Process: Distracted and Linear Thought Content: positive for [place] and positive for Poverty of Content Judgement: Fair Diagnostics Vital Signs (24Hr): Vital Signs - 24 hr 02/07/24 20:00 02/08/24 08:00 Temperature 98.6 F 97.3 F Pulse Rate 67 67 Respiratory Rate 16 18 Blood Pressure 103/52 L 115/67 Pulse Oximetry 95 94 Oxygen Delivery Method Room Air Room Air BMI result Body Mass Index 17.8 Labs 01/02/24 07:18 Medications Medications Current Medications Acetaminophen (Acetaminophen 325 Mg Tablet) 650 mg PO Q6H PRN PRN Reason: Headache/Pain Mild Scale (1-3) Al Hydroxide/Mg Hydroxide (Magnesium Hydrox/Alum Hydrox 30 Ml Oral.Susp) 30 ml PO Q6H PRN PRN Reason: Heartburn/Nausea Divalproex Sodium (Divalproex Sodium Sprinkles 125 Mg Cap.Spr) 125 mg PO BID [facility] Last Admin: 02/08/24 08:05 Dose: 125 mg Donepezil HCl (Donepezil Hcl 10 Mg Tablet) 10 mg PO BEDTIME [facility] Last Admin: 02/07/24 20:38 Dose: 10 mg Folic Acid (Folic Acid 1 Mg Tablet) 1 mg PO DAILY [facility] Last Admin: 02/08/24 08:05 Dose: 1 mg Magnesium Hydroxide (Milk Of Magnesia 30 Ml Oral.Susp) 30 ml PO DAILY PRN PRN Reason: Constipation Memantine (Memantine Hcl 10 Mg Tablet) 10 mg PO BID [facility] Last Admin: 02/08/24 08:05 Dose: 10 mg Olanzapine (Olanzapine 2.5 Mg Tablet) 2.5 mg PO TID PRN PRN Reason: agitation Last Admin: 02/05/24 19:50 Dose: 2.5 mg Trazodone HCl (Trazodone Hcl 25 Mg Halftab) 25 mg PO BEDTIME MRX1 PRN PRN Reason: Insomnia Last Admin: 02/06/24 20:44 Dose: 25 mg Allergies Allergies Allergy/AdvReac Type Severity Reaction Status Date / Time No Known Allergies Allergy Verified 01/26/24 13:17 Assessment & Plan Assessment & Plan (1) Dementia: Status: Acute Code(s): F03.90 - Unspecified dementia, unspecified severity, without behavioral disturbance, psychotic disturbance, mood disturbance, and anxiety Plan There is a documented history of dementia and transfer paperwork. Unclear past psychiatric history in terms of admissions, medications, safety, behaviors etc.. Mud Car Worker left message for his son with plan to invoke healthcare proxy as patient has clear cognitive impairment (due to dementia), does not understand conditional voluntary details, treatment recommendations etc.. Is not objecting to admission and defers to son (is HCP). Left VM for HCP to invoke same and complete CV. No response. While awaiting same, will complete S12, with view to invoking HCP and completing CV with HCP. 01/08 Mostly isolative, in his bed . He says he is okay but difficult with which to engage, giving one-word answers. Alert to self and location 01/09 No change in presentation. Patient again says he is okay. Today oriented to self but not location, however did know the day of the week Plan 1. Gather collateral information. 2. Start Aricept 5 mg p.o. q.h.s. to target dementia. We will try to go up to 10 mg and then add Namenda since he is [place] is 14/30 and his Adrian test is 3.4. Namenda started on January 10 3. Continue with medical treatment. 4. Start Depakote 125 p.o. b.i.d. to target disinhibition. 5. Depakote level for tomorrow. 6. Waiting for placement. Reason for continued inpatient stay Substantial Risk for: inability to function, rapid decompensation and med/psych decompensation Time Spent With Patient Time: Total time managing care of this patient today __20__ minutes.
[2024-02-08 20:00] VITALS: BP 104/57; PULSE 66; RESP 18; TEMP 35.7; O2SAT 94
[2024-02-08] MEDS: traZODone HCL 25 MG HALFTAB PO (21:11)
[2024-02-08] MEDS: Donepezil HCl 10 MG TABLET PO (21:11)
[2024-02-09 08:10] VITALS: BP 119/66; PULSE 69; RESP 18; TEMP 36.2; O2SAT 94
[2024-02-09 08:41] LABS: Valproate 20.8 mcg/mL (50.0-100.0)
[2024-02-09] MEDS: Folic Acid 1 MG TABLET PO (08:54)
[2024-02-09] MEDS: Memantine HCl 10 MG TABLET PO ×2 (08:54→19:52)
[2024-02-09] MEDS: Divalproex Sodium Sprinkles 125 MG CAP.DR.SPR PO ×2 (08:54→19:52)
--- NOTE | 2024-02-09 12:35 | P.PNPSI_ITS ---
Subjective Subjective Date of Service: 02/09/24 Reason For Visit: Alzheimers Disease Subjective Notes: Conditional Voluntary Interim History: The nursing staff reported the patient had been fully compliant with treatment visible in the unit, no changes in his mental status. On interview the patient denies new symptoms, waiting for placement. Mental Status Exam Mental Status Exam Patient Appearance: Appropriate Patient Orientation: Person and Situation Level of Consciousness: Awake and Appropriate Patient Behavior: Guarded and Passive Mood Description: Withdrawn Affect Description: Constricted Patient Cognition Impaired: Yes Ability to Follow Directions: Good Speech Pattern: Clear Hallucinations: None Delusions: Not Present Thought Process: Slowed Thinking Thought Content: positive for [place] and positive for Poverty of Content Judgement: Fair Diagnostics Vital Signs (24Hr): Vital Signs - 24 hr 02/08/24 20:00 02/09/24 08:10 Temperature 96.2 F L 97.2 F Pulse Rate 66 69 Respiratory Rate 18 18 Blood Pressure 104/57 L 119/66 Pulse Oximetry 94 94 Oxygen Delivery Method Room Air Room Air BMI result Body Mass Index 17.8 Labs 01/02/24 07:18 Labs: Laboratory Results - last 48 hr 02/09/24 07:51 Valproic Acid 20.8 L Medications Medications Current Medications Acetaminophen (Acetaminophen 325 Mg Tablet) 650 mg PO Q6H PRN PRN Reason: Headache/Pain Mild Scale (1-3) Al Hydroxide/Mg Hydroxide (Magnesium Hydrox/Alum Hydrox 30 Ml Oral.Susp) 30 ml PO Q6H PRN PRN Reason: Heartburn/Nausea Divalproex Sodium (Divalproex Sodium Sprinkles 125 Mg ) 125 mg PO BID [facility] Last Admin: 02/09/24 08:54 Dose: 125 mg Donepezil HCl (Donepezil Hcl 10 Mg Tablet) 10 mg PO BEDTIME [facility] Last Admin: 02/08/24 21:11 Dose: 10 mg Folic Acid (Folic Acid 1 Mg Tablet) 1 mg PO DAILY [facility] Last Admin: 02/09/24 08:54 Dose: 1 mg Magnesium Hydroxide (Milk Of Magnesia 30 Ml Oral.Susp) 30 ml PO DAILY PRN PRN Reason: Constipation Memantine (Memantine Hcl 10 Mg Tablet) 10 mg PO BID [facility] Last Admin: 02/09/24 08:54 Dose: 10 mg Olanzapine (Olanzapine 2.5 Mg Tablet) 2.5 mg PO TID PRN PRN Reason: agitation Last Admin: 02/05/24 19:50 Dose: 2.5 mg Trazodone HCl (Trazodone Hcl 25 Mg Halftab) 25 mg PO BEDTIME MRX1 PRN PRN Reason: Insomnia Last Admin: 02/08/24 21:11 Dose: 25 mg Allergies Allergies Allergy/AdvReac Type Severity Reaction Status Date / Time No Known Allergies Allergy Verified 01/26/24 13:17 Assessment & Plan Assessment & Plan (1) Dementia: Status: Acute Code(s): F03.90 - Unspecified dementia, unspecified severity, without behavioral disturbance, psychotic disturbance, mood disturbance, and anxiety Plan There is a documented history of dementia and transfer paperwork. Unclear past psychiatric history in terms of admissions, medications, safety, behaviors etc.. Receiving Clerk left message for his son with plan to invoke healthcare proxy as patient has clear cognitive impairment (due to dementia), does not understand conditional voluntary details, treatment recommendations etc.. Is not objecting to admission and defers to son (is HCP). Left VM for HCP to invoke same and complete CV. No response. While awaiting same, will complete S12, with view to invoking HCP and completing CV with HCP. 01/08 Mostly isolative, in his bed . He says he is okay but difficult with which to engage, giving one-word answers. Alert to self and location 01/09 No change in presentation. Patient again says he is okay. Today oriented to self but not location, however did know the day of the week Plan 1. Gather collateral information. 2. Start Aricept 5 mg p.o. q.h.s. to target dementia. We will try to go up to 10 mg and then add Namenda since he is [place] is and his Adrian test is 3.4. Namenda started on January 10 3. Continue with medical treatment. 4. Start Depakote 125 p.o. b.i.d. to target disinhibition. 5. Depakote level for tomorrow. 6. Waiting for placement. Reason for continued inpatient stay Substantial Risk for: inability to function, rapid decompensation and med/psych decompensation Time Spent With Patient Time: Total time managing care of this patient today __20__ minutes.
[2024-02-09] MEDS: Donepezil HCl 10 MG TABLET PO (19:52)
[2024-02-09 20:00] VITALS: BP 107/70; PULSE 77; TEMP 36.7; O2SAT 96
[2024-02-10 08:00] VITALS: BP 123/80; PULSE 65; RESP 18; TEMP 36.7; O2SAT 95
[2024-02-10] MEDS: Divalproex Sodium Sprinkles 125 MG CAP.DR.SPR PO ×2 (08:54→19:49)
[2024-02-10] MEDS: Memantine HCl 10 MG TABLET PO ×2 (08:54→19:49)
[2024-02-10] MEDS: Folic Acid 1 MG TABLET PO (08:54)
--- NOTE | 2024-02-10 11:19 | MHC.CLN ---
F/U DIET=REGULAR. APPEARS TO BE EATING WELL, WITH MOST MEALS 100%. WEIGHT ON 02/03=57.9 KG. SHOWS FAVORABLE 6.6% WEIGHT GAIN SINCE ADMISSION. NO ADDITIONAL NUTRITION INTERVENTIONS AT THIS TIME. RD TO FOLLOW WEEKLY.
--- NOTE | 2024-02-10 13:25 | P.PNPSI_ITS ---
Subjective Subjective Date of Service: 02/10/24 Reason For Visit: Alzheimers Disease Subjective Notes: Conditional Voluntary Interim History: The nursing staff reported the patient had been compliant with treatment, sexually inappropriate at times but easily redirectable. On interview the patient denies new symptoms pleasant cooperative. Mental Status Exam Mental Status Exam Patient Appearance: Appropriate Patient Orientation: Person and Situation Level of Consciousness: Awake and Appropriate Patient Behavior: Appropriate Mood Description: Calm Affect Description: Constricted Patient Cognition Impaired: Yes Ability to Follow Directions: Good Speech Pattern: Clear Hallucinations: None Delusions: Not Present Thought Process: Linear Thought Content: positive for [place] and positive for Poverty of Content Judgement: Fair Diagnostics Vital Signs (24Hr): Vital Signs - 24 hr 02/09/24 20:00 02/10/24 08:00 Temperature 98.1 F 98.1 F Pulse Rate 77 65 Respiratory Rate 18 Blood Pressure 107/70 123/80 Pulse Oximetry 96 95 Oxygen Delivery Method Room Air Room Air BMI result Body Mass Index 17.8 Labs 01/02/24 07:18 Labs: Laboratory Results - last 48 hr 02/09/24 07:51 Valproic Acid 20.8 L Medications Medications Current Medications Acetaminophen (Acetaminophen 325 Mg Tablet) 650 mg PO Q6H PRN PRN Reason: Headache/Pain Mild Scale (1-3) Al Hydroxide/Mg Hydroxide (Magnesium Hydrox/Alum Hydrox 30 Ml Oral.Susp) 30 ml PO Q6H PRN PRN Reason: Heartburn/Nausea Divalproex Sodium (Divalproex Sodium Sprinkles 125 Mg [place].) 125 mg PO BID [facility] Last Admin: 02/10/24 08:54 Dose: 125 mg Donepezil HCl (Donepezil Hcl 10 Mg Tablet) 10 mg PO BEDTIME [facility] Last Admin: 02/09/24 19:52 Dose: 10 mg Folic Acid (Folic Acid 1 Mg Tablet) 1 mg PO DAILY [facility] Last Admin: 02/10/24 08:54 Dose: 1 mg Magnesium Hydroxide (Milk Of Magnesia 30 Ml Oral.Susp) 30 ml PO DAILY PRN PRN Reason: Constipation Memantine (Memantine Hcl 10 Mg Tablet) 10 mg PO BID [facility] Last Admin: 02/10/24 08:54 Dose: 10 mg Olanzapine (Olanzapine 2.5 Mg Tablet) 2.5 mg PO TID PRN PRN Reason: agitation Last Admin: 02/05/24 19:50 Dose: 2.5 mg Trazodone HCl (Trazodone Hcl 25 Mg Halftab) 25 mg PO BEDTIME MRX1 PRN PRN Reason: Insomnia Last Admin: 02/08/24 21:11 Dose: 25 mg Allergies Allergies Allergy/AdvReac Type Severity Reaction Status Date / Time No Known Allergies Allergy Verified 01/26/24 13:17 Assessment & Plan Assessment & Plan (1) Dementia: Status: Acute Code(s): F03.90 - Unspecified dementia, unspecified severity, without behavioral disturbance, psychotic disturbance, mood disturbance, and anxiety Plan There is a documented history of dementia and transfer paperwork. Unclear past psychiatric history in terms of admissions, medications, safety, behaviors etc.. Regional Environmental Manager left message for his son with plan to invoke healthcare proxy as patient has clear cognitive impairment (due to dementia), does not understand conditional voluntary details, treatment recommendations etc.. Is not objecting to admission and defers to son (is HCP). Left VM for HCP to invoke same and complete CV. No response. While awaiting same, will complete S12, with view to invoking HCP and completing CV with HCP. 01/08 Mostly isolative, in his bed . He says he is okay but difficult with which to engage, giving one-word answers. Alert to self and location 01/09 No change in presentation. Patient again says he is okay. Today oriented to self but not location, however did know the day of the week Plan 1. Gather collateral information. 2. Start Aricept 5 mg p.o. q.h.s. to target dementia. We will try to go up to 10 mg and then add Namenda since he is [place] is 1430 and his Adrian test is 3.4. Namenda started on January 10 3. Continue with medical treatment. 4. Start Depakote 125 p.o. b.i.d. to target disinhibition. 5. Depakote level for tomorrow. 6. Waiting for placement. Reason for continued inpatient stay Substantial Risk for: inability to function, rapid decompensation and med/psych decompensation Time Spent With Patient Time: Total time managing care of this patient today __20__ minutes.
[2024-02-10] MEDS: traZODone HCL 25 MG HALFTAB PO (19:49)
[2024-02-10] MEDS: Donepezil HCl 10 MG TABLET PO (19:50)
[2024-02-10 20:00] VITALS: BP 100/59; PULSE 69; TEMP 35.2; O2SAT 96
[2024-02-11 07:00] VITALS: BMI 18.8
[2024-02-11 08:25] VITALS: BP 111/74; PULSE 77; RESP 16; TEMP 36.3; O2SAT 95
[2024-02-11] MEDS: Folic Acid 1 MG TABLET PO (08:27)
[2024-02-11] MEDS: Memantine HCl 10 MG TABLET PO ×2 (08:27→20:00)
[2024-02-11] MEDS: Divalproex Sodium Sprinkles 125 MG CAP.DR.SPR PO ×2 (08:27→19:59)
--- NOTE | 2024-02-11 13:34 | HO.PSYCHPN ---
Subjective Subjective Date of Service: 02/11/24 Reason For Visit: Alzheimers Disease Subjective Notes: Conditional Voluntary Interim History: The nursing staff reported the patient had been fully compliant, pleasant cooperative. On interview the patient denies new symptoms, waiting for placement. Mental Status Exam Mental Status Exam Patient Appearance: Appropriate Patient Orientation: Person and Situation Level of Consciousness: Awake and Appropriate Patient Behavior: Guarded and Passive Mood Description: Withdrawn Affect Description: Constricted Patient Cognition Impaired: Yes Ability to Follow Directions: Good Speech Pattern: Clear Hallucinations: None Delusions: Not Present Thought Process: Distracted and Slowed Thinking Thought Content: positive for [place] and positive for Poverty of Content Judgement: Fair Diagnostics Vital Signs (24Hr): Vital Signs - 24 hr 02/10/24 20:00 02/11/24 08:25 Temperature 95.3 F L 97.4 F Pulse Rate 69 77 Respiratory Rate 16 Blood Pressure 100/59 L 111/74 Pulse Oximetry 96 95 Oxygen Delivery Method Room Air Room Air BMI result Body Mass Index 17.8 Labs 01/02/24 07:18 Medications Medications Current Medications Acetaminophen (Acetaminophen 325 Mg Tablet) 650 mg PO Q6H PRN PRN Reason: Headache/Pain Mild Scale (1-3) Al Hydroxide/Mg Hydroxide (Magnesium Hydrox/Alum Hydrox 30 Ml Oral.Susp) 30 ml PO Q6H PRN PRN Reason: Heartburn/Nausea Divalproex Sodium (Divalproex Sodium Sprinkles 125 Mg Cap.Spr) 125 mg PO BID [facility] Last Admin: 02/11/24 08:27 Dose: 125 mg Donepezil HCl (Donepezil Hcl 10 Mg Tablet) 10 mg PO BEDTIME [facility] Last Admin: 02/10/24 19:50 Dose: 10 mg Folic Acid (Folic Acid 1 Mg Tablet) 1 mg PO DAILY [facility] Last Admin: 02/11/24 08:27 Dose: 1 mg Magnesium Hydroxide (Milk Of Magnesia 30 Ml Oral.Susp) 30 ml PO DAILY PRN PRN Reason: Constipation Memantine (Memantine Hcl 10 Mg Tablet) 10 mg PO BID [facility] Last Admin: 02/11/24 08:27 Dose: 10 mg Olanzapine (Olanzapine 2.5 Mg Tablet) 2.5 mg PO TID PRN PRN Reason: agitation Last Admin: 02/05/24 19:50 Dose: 2.5 mg Trazodone HCl (Trazodone Hcl 25 Mg Halftab) 25 mg PO BEDTIME MRX1 PRN PRN Reason: Insomnia Last Admin: 02/10/24 19:49 Dose: 25 mg Allergies Allergies Allergy/AdvReac Type Severity Reaction Status Date / Time No Known Allergies Allergy Verified 01/26/24 13:17 Assessment & Plan Assessment & Plan (1) Dementia: Status: Acute Code(s): F03.90 - Unspecified dementia, unspecified severity, without behavioral disturbance, psychotic disturbance, mood disturbance, and anxiety Plan There is a documented history of dementia and transfer paperwork. Unclear past psychiatric history in terms of admissions, medications, safety, behaviors etc.. Kier Tender left message for his son with plan to invoke healthcare proxy as patient has clear cognitive impairment (due to dementia), does not understand conditional voluntary details, treatment recommendations etc.. Is not objecting to admission and defers to son (is HCP). Left VM for HCP to invoke same and complete CV. No response. While awaiting same, will complete S12, with view to invoking HCP and completing CV with HCP. 01/08 Mostly isolative, in his bed . He says he is okay but difficult with which to engage, giving one-word answers. Alert to self and location 01/09 No change in presentation. Patient again says he is okay. Today oriented to self but not location, however did know the day of the week Plan 1. Gather collateral information. 2. Start Aricept 5 mg p.o. q.h.s. to target dementia. We will try to go up to 10 mg and then add Namenda since he is [place] is 14/30 and his Adrian test is 3.4. Namenda started on January 10 3. Continue with medical treatment. 4. Start Depakote 125 p.o. b.i.d. to target disinhibition. 5. Depakote level for tomorrow. 6. Waiting for placement. Reason for continued inpatient stay Substantial Risk for: inability to function, rapid decompensation and med/psych decompensation Time Spent With Patient Time: Total time managing care of this patient today __20__ minutes.
[2024-02-11] MEDS: traZODone HCL 25 MG HALFTAB PO (19:59)
[2024-02-11 20:00] VITALS: BP 123/73; PULSE 65; RESP 16; TEMP 35.9; O2SAT 97
[2024-02-11] MEDS: Donepezil HCl 10 MG TABLET PO (20:00)
[2024-02-12 08:00] VITALS: BP 116/69; PULSE 59; RESP 16; TEMP 36.4; O2SAT 93
[2024-02-12] MEDS: Memantine HCl 10 MG TABLET PO ×2 (09:51→20:18)
[2024-02-12] MEDS: Divalproex Sodium Sprinkles 125 MG CAP.DR.SPR PO ×2 (09:51→20:17)
[2024-02-12] MEDS: Folic Acid 1 MG TABLET PO (09:51)
--- NOTE | 2024-02-12 14:25 | HO.PSYCHPN ---
Subjective Subjective Date of Service: 02/12/24 Reason For Visit: Alzheimers Disease Subjective Notes: Conditional Voluntary Interim History: The nursing staff reported the patient had been compliant with treatment, no changes in his mental status. On interview the patient denies new symptoms, waiting for placement. Mental Status Exam Mental Status Exam Patient Appearance: Appropriate Patient Orientation: Person and Situation Level of Consciousness: Awake and Appropriate Patient Behavior: Appropriate, Cooperative and Passive Mood Description: Calm Affect Description: Constricted Patient Cognition Impaired: Yes Ability to Follow Directions: Good Speech Pattern: Clear Hallucinations: None Delusions: Not Present Thought Process: Distracted and Slowed Thinking Thought Content: positive for Circumstantial Judgement: Fair Diagnostics Vital Signs (24Hr): Vital Signs - 24 hr 02/11/24 20:00 02/12/24 08:00 Temperature 96.6 F L 97.6 F Pulse Rate 65 59 Respiratory Rate 16 16 Blood Pressure 123/73 116/69 Pulse Oximetry 97 93 Oxygen Delivery Method Room Air Room Air BMI result Body Mass Index 18.8 Labs 01/02/24 07:18 Medications Medications Current Medications Acetaminophen (Acetaminophen 325 Mg Tablet) 650 mg PO Q6H PRN PRN Reason: Headache/Pain Mild Scale (1-3) Al Hydroxide/Mg Hydroxide (Magnesium Hydrox/Alum Hydrox 30 Ml Oral.Susp) 30 ml PO Q6H PRN PRN Reason: Heartburn/Nausea Divalproex Sodium (Divalproex Sodium Sprinkles 125 Mg Cap.DrJimSpr) 125 mg PO BID [facility] Last Admin: 02/12/24 09:51 Dose: 125 mg Donepezil HCl (Donepezil Hcl 10 Mg Tablet) 10 mg PO BEDTIME [facility] Last Admin: 02/11/24 20:00 Dose: 10 mg Folic Acid (Folic Acid 1 Mg Tablet) 1 mg PO DAILY [facility] Last Admin: 02/12/24 09:51 Dose: 1 mg Magnesium Hydroxide (Milk Of Magnesia 30 Ml Oral.Susp) 30 ml PO DAILY PRN PRN Reason: Constipation Memantine (Memantine Hcl 10 Mg Tablet) 10 mg PO BID [facility] Last Admin: 02/12/24 09:51 Dose: 10 mg Olanzapine (Olanzapine 2.5 Mg Tablet) 2.5 mg PO TID PRN PRN Reason: agitation Last Admin: 02/05/24 19:50 Dose: 2.5 mg Trazodone HCl (Trazodone Hcl 25 Mg Halftab) 25 mg PO BEDTIME MRX1 PRN PRN Reason: Insomnia Last Admin: 02/11/24 19:59 Dose: 25 mg Allergies Allergies Allergy/AdvReac Type Severity Reaction Status Date / Time No Known Allergies Allergy Verified 01/26/24 13:17 Assessment & Plan Assessment & Plan (1) Dementia: Status: Acute Code(s): F03.90 - Unspecified dementia, unspecified severity, without behavioral disturbance, psychotic disturbance, mood disturbance, and anxiety Plan There is a documented history of dementia and transfer paperwork. Unclear past psychiatric history in terms of admissions, medications, safety, behaviors etc.. Shell Molding Roller Blast Operator left message for his son with plan to invoke healthcare proxy as patient has clear cognitive impairment (due to dementia), does not understand conditional voluntary details, treatment recommendations etc.. Is not objecting to admission and defers to son (is HCP). Left VM for HCP to invoke same and complete CV. No response. While awaiting same, will complete S12, with view to invoking HCP and completing CV with HCP. 01/08 Mostly isolative, in his bed . He says he is okay but difficult with which to engage, giving one-word answers. Alert to self and location 01/09 No change in presentation. Patient again says he is okay. Today oriented to self but not location, however did know the day of the week Plan 1. Gather collateral information. 2. Start Aricept 5 mg p.o. q.h.s. to target dementia. We will try to go up to 10 mg and then add Namenda since he is [place] is 14/30 and his Adrian test is 3.4. Namenda started on January 10 3. Continue with medical treatment. 4. Start Depakote 125 p.o. b.i.d. to target disinhibition. 5. Depakote level for tomorrow. 6. Waiting for placement. Reason for continued inpatient stay Substantial Risk for: inability to function, rapid decompensation and med/psych decompensation Time Spent With Patient Time: Total time managing care of this patient today __20__ minutes.
[2024-02-12 20:00] VITALS: BP 116/59; PULSE 75; RESP 16; TEMP 36.3; O2SAT 94
[2024-02-12] MEDS: traZODone HCL 25 MG HALFTAB PO (20:17)
[2024-02-12] MEDS: Donepezil HCl 10 MG TABLET PO (20:18)
[2024-02-13 08:00] VITALS: BP 110/66; PULSE 77; RESP 18; TEMP 36.8; O2SAT 98
[2024-02-13] MEDS: Folic Acid 1 MG TABLET PO (08:14)
[2024-02-13] MEDS: Divalproex Sodium Sprinkles 125 MG CAP.DR.SPR PO ×2 (08:14→21:12)
[2024-02-13] MEDS: Memantine HCl 10 MG TABLET PO ×2 (08:14→21:12)
--- NOTE | 2024-02-13 12:39 | HO.PSYCHPN ---
Subjective Subjective Date of Service: 02/13/24 Reason For Visit: Alzheimers Disease Interim History: The nursing staff reported the patient had been compliant with treatment, no changes in his mental status. On interview the patient denies new symptoms, waiting for placement. Medication Compliance: Yes Side effects from medications: No Review of Systems Review of Systems nothing acute Yes all other systems are reviewed and are negative Mental Status Exam Mental Status Exam Narrative: Pleasant. Engaged. Casually dressed and presented. Fair hygiene. Clear cognitive impairment. Denied depression. Denied SI or HI. No agitation. No clear psychosis. Insight and judgment poor Patient Appearance: Appropriate Patient Orientation: Person and Situation Level of Consciousness: Awake and Appropriate Patient Behavior: Appropriate, Cooperative and Passive Mood Description: Calm Affect Description: Constricted Patient Cognition Impaired: Yes Ability to Follow Directions: Good Speech Pattern: Clear Diagnostics Vital Signs (24Hr): Vital Signs - 24 hr 02/12/24 20:00 02/13/24 08:00 Temperature 97.3 F 98.2 F Pulse Rate 75 77 Respiratory Rate 16 18 Blood Pressure 116/59 L 110/66 Pulse Oximetry 94 98 Oxygen Delivery Method Room Air BMI result Body Mass Index 18.8 Labs 01/02/24 07:18 Medications Medications Current Medications Acetaminophen (Acetaminophen 325 Mg Tablet) 650 mg PO Q6H PRN PRN Reason: Headache/Pain Mild Scale (1-3) Al Hydroxide/Mg Hydroxide (Magnesium Hydrox/Alum Hydrox 30 Ml Oral.Susp) 30 ml PO Q6H PRN PRN Reason: Heartburn/Nausea Divalproex Sodium (Divalproex Sodium Sprinkles 125 Mg ) 125 mg PO BID [facility] Last Admin: 02/13/24 08:14 Dose: 125 mg Donepezil HCl (Donepezil Hcl 10 Mg Tablet) 10 mg PO BEDTIME [facility] Last Admin: 02/12/24 20:18 Dose: 10 mg Folic Acid (Folic Acid 1 Mg Tablet) 1 mg PO DAILY [facility] Last Admin: 02/13/24 08:14 Dose: 1 mg Magnesium Hydroxide (Milk Of Magnesia 30 Ml Oral.Susp) 30 ml PO DAILY PRN PRN Reason: Constipation Memantine (Memantine Hcl 10 Mg Tablet) 10 mg PO BID [facility] Last Admin: 02/13/24 08:14 Dose: 10 mg Olanzapine (Olanzapine 2.5 Mg Tablet) 2.5 mg PO TID PRN PRN Reason: agitation Last Admin: 02/05/24 19:50 Dose: 2.5 mg Trazodone HCl (Trazodone Hcl 25 Mg Halftab) 25 mg PO BEDTIME MRX1 PRN PRN Reason: Insomnia Last Admin: 02/12/24 20:17 Dose: 25 mg Allergies Allergies Allergy/AdvReac Type Severity Reaction Status Date / Time No Known Allergies Allergy Verified 01/26/24 13:17 Assessment & Plan Assessment & Plan (1) Dementia: Status: Acute Code(s): F03.90 - Unspecified dementia, unspecified severity, without behavioral disturbance, psychotic disturbance, mood disturbance, and anxiety Plan There is a documented history of dementia and transfer paperwork. Unclear past psychiatric history in terms of admissions, medications, safety, behaviors etc.. Relay Engineer left message for his son with plan to invoke healthcare proxy as patient has clear cognitive impairment (due to dementia), does not understand conditional voluntary details, treatment recommendations etc.. Is not objecting to admission and defers to son (is HCP). Left VM for HCP to invoke same and complete CV. No response. While awaiting same, will complete S12, with view to invoking HCP and completing CV with HCP. 01/08 Mostly isolative, in his bed . He says he is okay but difficult with which to engage, giving one-word answers. Alert to self and location 01/09 No change in presentation. Patient again says he is okay. Today oriented to self but not location, however did know the day of the week Plan 1. Gather collateral information. 2. Start Aricept 5 mg p.o. q.h.s. to target dementia. We will try to go up to 10 mg and then add Namenda since he is [place] is and his Adrian test is 3.4. Namenda started on January 10 3. Continue with medical treatment. 4. Start Depakote 125 p.o. b.i.d. to target disinhibition. 5. Depakote level for tomorrow. 6. Waiting for placement. 02/12 continue tx Reason for continued inpatient stay Substantial Risk for: inability to function Time Spent With Patient Time: Total time managing care of this patient today ____ minutes.
[2024-02-13 20:00] VITALS: BP 140/76; PULSE 65; RESP 18; TEMP 36.1; O2SAT 99
[2024-02-13] MEDS: traZODone HCL 25 MG HALFTAB PO (21:12)
[2024-02-13] MEDS: Donepezil HCl 10 MG TABLET PO (21:12)
[2024-02-14 07:55] VITALS: BP 106/58; PULSE 75; RESP 18; TEMP 36.4; O2SAT 93
[2024-02-14] MEDS: Folic Acid 1 MG TABLET PO (08:01)
[2024-02-14] MEDS: Memantine HCl 10 MG TABLET PO ×2 (08:01→19:55)
[2024-02-14] MEDS: Divalproex Sodium Sprinkles 125 MG CAP.DR.SPR PO ×2 (08:01→19:55)
--- NOTE | 2024-02-14 19:33 | HO.PSYCHPN ---
Subjective Subjective Date of Service: 02/14/24 Reason For Visit: Alzheimers Disease Interim History: The nursing staff reported the patient had been compliant with treatment, no changes in his mental status. On interview the patient denies new symptoms, waiting for placement. Review of Systems Review of Systems nothing acute Yes all other systems are reviewed and are negative Mental Status Exam Mental Status Exam Narrative: Pleasant. Engaged. Casually dressed and presented. Fair hygiene. Clear cognitive impairment. Denied depression. Denied SI or HI. No agitation. No clear psychosis. Insight and judgment poor Patient Appearance: Appropriate Patient Orientation: Person and Situation Level of Consciousness: Awake and Appropriate Patient Behavior: Appropriate, Cooperative and Passive Mood Description: Calm Affect Description: Constricted Patient Cognition Impaired: Yes Ability to Follow Directions: Good Speech Pattern: Clear Diagnostics Vital Signs (24Hr): Vital Signs - 24 hr 02/13/24 20:00 02/14/24 07:55 Temperature 96.9 F 97.6 F Pulse Rate 65 75 Respiratory Rate 18 18 Blood Pressure 140/76 H 106/58 L Pulse Oximetry 99 93 Oxygen Delivery Method Room Air Room Air BMI result Body Mass Index 18.8 Labs 01/02/24 07:18 Medications Medications Current Medications Acetaminophen (Acetaminophen 325 Mg Tablet) 650 mg PO Q6H PRN PRN Reason: Headache/Pain Mild Scale (1-3) Al Hydroxide/Mg Hydroxide (Magnesium Hydrox/Alum Hydrox 30 Ml Oral.Susp) 30 ml PO Q6H PRN PRN Reason: Heartburn/Nausea Divalproex Sodium (Divalproex Sodium Sprinkles 125 Mg ) 125 mg PO BID [facility] Last Admin: 02/14/24 08:01 Dose: 125 mg Donepezil HCl (Donepezil Hcl 10 Mg Tablet) 10 mg PO BEDTIME [facility] Last Admin: 02/13/24 21:12 Dose: 10 mg Folic Acid (Folic Acid 1 Mg Tablet) 1 mg PO DAILY [facility] Last Admin: 02/14/24 08:01 Dose: 1 mg Magnesium Hydroxide (Milk Of Magnesia 30 Ml Oral.Susp) 30 ml PO DAILY PRN PRN Reason: Constipation Memantine (Memantine Hcl 10 Mg Tablet) 10 mg PO BID [facility] Last Admin: 02/14/24 08:01 Dose: 10 mg Olanzapine (Olanzapine 2.5 Mg Tablet) 2.5 mg PO TID PRN PRN Reason: agitation Last Admin: 02/05/24 19:50 Dose: 2.5 mg Trazodone HCl (Trazodone Hcl 25 Mg Halftab) 25 mg PO BEDTIME MRX1 PRN PRN Reason: Insomnia Last Admin: 02/13/24 21:12 Dose: 25 mg Allergies Allergies Allergy/AdvReac Type Severity Reaction Status Date / Time No Known Allergies Allergy Verified 01/26/24 13:17 Assessment & Plan Assessment & Plan (1) Dementia: Status: Acute Code(s): F03.90 - Unspecified dementia, unspecified severity, without behavioral disturbance, psychotic disturbance, mood disturbance, and anxiety Plan There is a documented history of dementia and transfer paperwork. Unclear past psychiatric history in terms of admissions, medications, safety, behaviors etc.. Fashion Consultant Sales left message for his son with plan to invoke healthcare proxy as patient has clear cognitive impairment (due to dementia), does not understand conditional voluntary details, treatment recommendations etc.. Is not objecting to admission and defers to son (is HCP). Left VM for HCP to invoke same and complete CV. No response. While awaiting same, will complete S12, with view to invoking HCP and completing CV with HCP. 01/08 Mostly isolative, in his bed . He says he is okay but difficult with which to engage, giving one-word answers. Alert to self and location 01/09 No change in presentation. Patient again says he is okay. Today oriented to self but not location, however did know the day of the week Plan 1. Gather collateral information. 2. Start Aricept 5 mg p.o. q.h.s. to target dementia. We will try to go up to 10 mg and then add Namenda since he is [place] is and his Adrian test is 3.4. Namenda started on January 10 3. Continue with medical treatment. 4. Start Depakote 125 p.o. b.i.d. to target disinhibition. 5. Depakote level for tomorrow. 6. Waiting for placement. 02/12 continue tx 02/13 continue tx Reason for continued inpatient stay Substantial Risk for: inability to function Time Spent With Patient Time: Total time managing care of this patient today ____ minutes.
[2024-02-14] MEDS: Donepezil HCl 10 MG TABLET PO (19:55)
[2024-02-14 21:20] VITALS: BP 92/61; PULSE 89; RESP 18; TEMP 37.2; O2SAT 95
[2024-02-14] MEDS: traZODone HCL 25 MG HALFTAB PO (23:28)
[2024-02-14] MEDS: OLANZapine 2.5 MG TABLET PO (23:28)
[2024-02-15 08:00] VITALS: BP 100/62; PULSE 80; RESP 16; TEMP 36.3; O2SAT 93
[2024-02-15] MEDS: Folic Acid 1 MG TABLET PO (08:12)
[2024-02-15] MEDS: Divalproex Sodium Sprinkles 125 MG CAP.DR.SPR PO ×2 (08:12→20:26)
[2024-02-15] MEDS: Memantine HCl 10 MG TABLET PO ×2 (08:12→20:26)
--- NOTE | 2024-02-15 09:59 | HO.PSYCHPN ---
Subjective Subjective Date of Service: 02/15/24 Reason For Visit: Alzheimers Disease Interim History: The nursing staff reported the patient had been compliant with treatment, no changes in his mental status. On interview the patient denies new symptoms, waiting for placement. Review of Systems Review of Systems nothing acute Yes all other systems are reviewed and are negative Mental Status Exam Mental Status Exam Narrative: Pleasant. Engaged. Casually dressed and presented. Fair hygiene. Clear cognitive impairment. Denied depression. Denied SI or HI. No agitation. No clear psychosis. Insight and judgment poor Patient Appearance: Appropriate Patient Orientation: Person and Situation Level of Consciousness: Awake and Appropriate Patient Behavior: Appropriate, Cooperative and Passive Mood Description: Calm Affect Description: Constricted Patient Cognition Impaired: Yes Ability to Follow Directions: Good Speech Pattern: Clear Hallucinations: None Thought Process: Disoriented Thought Content: positive for Disoriented Judgement: Fair Diagnostics Vital Signs (24Hr): Vital Signs - 24 hr 02/14/24 21:20 02/15/24 08:00 Temperature 98.9 F 97.3 F Pulse Rate 89 80 Respiratory Rate 18 16 Blood Pressure 92/61 100/62 Pulse Oximetry 95 93 Oxygen Delivery Method Room Air Room Air BMI result Body Mass Index 18.8 Labs 01/02/24 07:18 Medications Medications Current Medications Acetaminophen (Acetaminophen 325 Mg Tablet) 650 mg PO Q6H PRN PRN Reason: Headache/Pain Mild Scale (1-3) Al Hydroxide/Mg Hydroxide (Magnesium Hydrox/Alum Hydrox 30 Ml Oral.Susp) 30 ml PO Q6H PRN PRN Reason: Heartburn/Nausea Divalproex Sodium (Divalproex Sodium Sprinkles 125 Mg ) 125 mg PO BID [facility] Last Admin: 02/15/24 08:12 Dose: 125 mg Donepezil HCl (Donepezil Hcl 10 Mg Tablet) 10 mg PO BEDTIME [facility] Last Admin: 02/14/24 19:55 Dose: 10 mg Folic Acid (Folic Acid 1 Mg Tablet) 1 mg PO DAILY [facility] Last Admin: 02/15/24 08:12 Dose: 1 mg Magnesium Hydroxide (Milk Of Magnesia 30 Ml Oral.Susp) 30 ml PO DAILY PRN PRN Reason: Constipation Memantine (Memantine Hcl 10 Mg Tablet) 10 mg PO BID [facility] Last Admin: 02/15/24 08:12 Dose: 10 mg Olanzapine (Olanzapine 2.5 Mg Tablet) 2.5 mg PO TID PRN PRN Reason: agitation Last Admin: 02/14/24 23:28 Dose: 2.5 mg Trazodone HCl (Trazodone Hcl 25 Mg Halftab) 25 mg PO BEDTIME MRX1 PRN PRN Reason: Insomnia Last Admin: 02/14/24 23:28 Dose: 25 mg Allergies Allergies Allergy/AdvReac Type Severity Reaction Status Date / Time No Known Allergies Allergy Verified 01/26/24 13:17 Assessment & Plan Assessment & Plan (1) Dementia: Status: Acute Code(s): F03.90 - Unspecified dementia, unspecified severity, without behavioral disturbance, psychotic disturbance, mood disturbance, and anxiety Plan There is a documented history of dementia and transfer paperwork. Unclear past psychiatric history in terms of admissions, medications, safety, behaviors etc.. Senior Operations Manager left message for his son with plan to invoke healthcare proxy as patient has clear cognitive impairment (due to dementia), does not understand conditional voluntary details, treatment recommendations etc.. Is not objecting to admission and defers to son (is HCP). Left VM for HCP to invoke same and complete CV. No response. While awaiting same, will complete S12, with view to invoking HCP and completing CV with HCP. 01/08 Mostly isolative, in his bed . He says he is okay but difficult with which to engage, giving one-word answers. Alert to self and location 01/09 No change in presentation. Patient again says he is okay. Today oriented to self but not location, however did know the day of the week Plan 1. Gather collateral information. 2. Start Aricept 5 mg p.o. q.h.s. to target dementia. We will try to go up to 10 mg and then add Namenda since he is [place] is and his Adrian test is 3.4. Namenda started on January 10 3. Continue with medical treatment. 4. Start Depakote 125 p.o. b.i.d. to target disinhibition. 5. Depakote level for tomorrow. 6. Waiting for placement. 02/12 continue tx 02/13 continue tx 02/14 continue tx Reason for continued inpatient stay Substantial Risk for: inability to function Time Spent With Patient Time: Total time managing care of this patient today ____ minutes.
[2024-02-15 20:00] VITALS: BP 94/55; PULSE 62; RESP 18; TEMP 36.5; O2SAT 95
[2024-02-15] MEDS: Donepezil HCl 10 MG TABLET PO (20:26)
[2024-02-16 08:07] VITALS: BP 123/59; PULSE 66; RESP 16; TEMP 36; O2SAT 95
[2024-02-16] MEDS: Memantine HCl 10 MG TABLET PO ×2 (08:11→20:10)
[2024-02-16] MEDS: Folic Acid 1 MG TABLET PO (08:11)
[2024-02-16] MEDS: Divalproex Sodium Sprinkles 125 MG CAP.DR.SPR PO ×2 (08:11→20:10)
--- NOTE | 2024-02-16 12:06 | HO.PSYCHPN ---
Subjective Subjective Date of Service: 02/16/24 Reason For Visit: Alzheimers Disease Subjective Notes: Conditional Voluntary Interim History: The nursing staff reported the patient had been compliant with treatment, no changes in his mental status. On interview the patient denies new symptoms, waiting for placement. Mental Status Exam Mental Status Exam Patient Appearance: Appropriate Patient Orientation: Person and Situation Level of Consciousness: Awake and Appropriate Patient Behavior: Guarded and Passive Mood Description: Withdrawn Affect Description: Constricted Patient Cognition Impaired: Yes Ability to Follow Directions: Good Speech Pattern: Clear Hallucinations: None Delusions: Not Present Thought Process: Linear Thought Content: positive for Circumstantial Judgement: Fair Diagnostics Vital Signs (24Hr): Vital Signs - 24 hr 02/15/24 20:00 02/16/24 08:07 Temperature 97.7 F 96.8 F Pulse Rate 62 66 Respiratory Rate 18 16 Blood Pressure 94/55 L 123/59 L Pulse Oximetry 95 95 Oxygen Delivery Method Room Air Room Air BMI result Body Mass Index 18.8 Labs 01/02/24 07:18 Medications Medications Current Medications Acetaminophen (Acetaminophen 325 Mg Tablet) 650 mg PO Q6H PRN PRN Reason: Headache/Pain Mild Scale (1-3) Al Hydroxide/Mg Hydroxide (Magnesium Hydrox/Alum Hydrox 30 Ml Oral.Susp) 30 ml PO Q6H PRN PRN Reason: Heartburn/Nausea Divalproex Sodium (Divalproex Sodium Sprinkles 125 Mg Cap.) 125 mg PO BID [facility] Last Admin: 02/16/24 08:11 Dose: 125 mg Donepezil HCl (Donepezil Hcl 10 Mg Tablet) 10 mg PO BEDTIME [facility] Last Admin: 02/15/24 20:26 Dose: 10 mg Folic Acid (Folic Acid 1 Mg Tablet) 1 mg PO DAILY [facility] Last Admin: 02/16/24 08:11 Dose: 1 mg Magnesium Hydroxide (Milk Of Magnesia 30 Ml Oral.Susp) 30 ml PO DAILY PRN PRN Reason: Constipation Memantine (Memantine Hcl 10 Mg Tablet) 10 mg PO BID [facility] Last Admin: 02/16/24 08:11 Dose: 10 mg Olanzapine (Olanzapine 2.5 Mg Tablet) 2.5 mg PO TID PRN PRN Reason: agitation Last Admin: 02/14/24 23:28 Dose: 2.5 mg Trazodone HCl (Trazodone Hcl 25 Mg Halftab) 25 mg PO BEDTIME MRX1 PRN PRN Reason: Insomnia Last Admin: 02/14/24 23:28 Dose: 25 mg Allergies Allergies Allergy/AdvReac Type Severity Reaction Status Date / Time No Known Allergies Allergy Verified 01/26/24 13:17 Assessment & Plan Assessment & Plan (1) Dementia: Status: Acute Code(s): F03.90 - Unspecified dementia, unspecified severity, without behavioral disturbance, psychotic disturbance, mood disturbance, and anxiety Plan There is a documented history of dementia and transfer paperwork. Unclear past psychiatric history in terms of admissions, medications, safety, behaviors etc.. Sports Lawyer left message for his son with plan to invoke healthcare proxy as patient has clear cognitive impairment (due to dementia), does not understand conditional voluntary details, treatment recommendations etc.. Is not objecting to admission and defers to son (is HCP). Left VM for HCP to invoke same and complete CV. No response. While awaiting same, will complete S12, with view to invoking HCP and completing CV with HCP. 01/08 Mostly isolative, in his bed . He says he is okay but difficult with which to engage, giving one-word answers. Alert to self and location 01/09 No change in presentation. Patient again says he is okay. Today oriented to self but not location, however did know the day of the week Plan 1. Gather collateral information. 2. Start Aricept 5 mg p.o. q.h.s. to target dementia. We will try to go up to 10 mg and then add Namenda since he is [place] is 14/30 and his Adrian test is 3.4. Namenda started on January 10 3. Continue with medical treatment. 4. Start Depakote 125 p.o. b.i.d. to target disinhibition. 5. Depakote level for tomorrow. 6. Waiting for placement. Reason for continued inpatient stay Substantial Risk for: inability to function, rapid decompensation and med/psych decompensation Time Spent With Patient Time: Total time managing care of this patient today __20__ minutes.
[2024-02-16 20:00] VITALS: BP 114/66; PULSE 71; RESP 18; TEMP 35.8; O2SAT 97
[2024-02-16] MEDS: traZODone HCL 25 MG HALFTAB PO (20:10)
[2024-02-16] MEDS: Donepezil HCl 10 MG TABLET PO (20:10)
[2024-02-16 20:31] VITALS: BP 114/66; PULSE 71; TEMP 35.8; O2SAT 97
[2024-02-17 08:00] VITALS: BP 109/71; PULSE 75; RESP 16; TEMP 36; O2SAT 96
[2024-02-17] MEDS: Folic Acid 1 MG TABLET PO (08:03)
[2024-02-17] MEDS: Memantine HCl 10 MG TABLET PO ×2 (08:03→20:19)
[2024-02-17] MEDS: Divalproex Sodium Sprinkles 125 MG CAP.DR.SPR PO ×2 (08:03→20:19)
--- NOTE | 2024-02-17 09:30 | P.PNPSI_ITS ---
Subjective Subjective Date of Service: 02/17/24 Reason For Visit: Alzheimers Disease Subjective Notes: Conditional Voluntary Interim History: The nursing staff reported the patient had watch TV yesterday, he slept well. The staff has noticed that his more sexually inappropriate with staff. On interview the patient denies new symptoms. I am ordering a Depakote level for tomorrow and we changed her observation to 5 minutes for safety. Mental Status Exam Mental Status Exam Patient Appearance: Appropriate Patient Orientation: Person and Situation Level of Consciousness: Awake and Appropriate Patient Behavior: Passive Mood Description: Calm Affect Description: Constricted Patient Cognition Impaired: Yes Ability to Follow Directions: Fair Speech Pattern: Clear Hallucinations: None Delusions: Not Present Thought Process: Distracted and Slowed Thinking Thought Content: positive for [place] and positive for Poverty of Content Judgement: Poor Diagnostics Vital Signs (24Hr): Vital Signs - 24 hr 02/16/24 20:00 02/16/24 20:31 Temperature 96.5 F L 96.5 F L Pulse Rate 71 71 Respiratory Rate 18 Blood Pressure 114/66 114/66 Pulse Oximetry 97 97 Oxygen Delivery Method Room Air Room Air BMI result Body Mass Index 18.8 Labs 01/02/24 07:18 Medications Medications Current Medications Acetaminophen (Acetaminophen 325 Mg Tablet) 650 mg PO Q6H PRN PRN Reason: Headache/Pain Mild Scale (1-3) Al Hydroxide/Mg Hydroxide (Magnesium Hydrox/Alum Hydrox 30 Ml Oral.Susp) 30 ml PO Q6H PRN PRN Reason: Heartburn/Nausea Divalproex Sodium (Divalproex Sodium Sprinkles 125 Mg ) 125 mg PO BID [facility] Last Admin: 02/17/24 08:03 Dose: 125 mg Donepezil HCl (Donepezil Hcl 10 Mg Tablet) 10 mg PO BEDTIME [facility] Last Admin: 02/16/24 20:10 Dose: 10 mg Folic Acid (Folic Acid 1 Mg Tablet) 1 mg PO DAILY [facility] Last Admin: 02/17/24 08:03 Dose: 1 mg Magnesium Hydroxide (Milk Of Magnesia 30 Ml Oral.Susp) 30 ml PO DAILY PRN PRN Reason: Constipation Memantine (Memantine Hcl 10 Mg Tablet) 10 mg PO BID [facility] Last Admin: 02/17/24 08:03 Dose: 10 mg Olanzapine (Olanzapine 2.5 Mg Tablet) 2.5 mg PO TID PRN PRN Reason: agitation Last Admin: 02/14/24 23:28 Dose: 2.5 mg Trazodone HCl (Trazodone Hcl 25 Mg Halftab) 25 mg PO BEDTIME MRX1 PRN PRN Reason: Insomnia Last Admin: 02/16/24 20:10 Dose: 25 mg Allergies Allergies Allergy/AdvReac Type Severity Reaction Status Date / Time No Known Allergies Allergy Verified 01/26/24 13:17 Assessment & Plan Assessment & Plan (1) Dementia: Status: Acute Code(s): F03.90 - Unspecified dementia, unspecified severity, without behavioral disturbance, psychotic disturbance, mood disturbance, and anxiety Plan There is a documented history of dementia and transfer paperwork. Unclear past psychiatric history in terms of admissions, medications, safety, behaviors etc.. Hardware Assembler left message for his son with plan to invoke healthcare proxy as patient has clear cognitive impairment (due to dementia), does not understand conditional voluntary details, treatment recommendations etc.. Is not objecting to admission and defers to son (is HCP). Left VM for HCP to invoke same and complete CV. No response. While awaiting same, will complete S12, with view to invoking HCP and completing CV with HCP. 01/08 Mostly isolative, in his bed . He says he is okay but difficult with which to engage, giving one-word answers. Alert to self and location 01/09 No change in presentation. Patient again says he is okay. Today oriented to self but not location, however did know the day of the week Plan 1. Gather collateral information. 2. Start Aricept 5 mg p.o. q.h.s. to target dementia. We will try to go up to 10 mg and then add Namenda since he is [place] is and his Adrian test is 3.4. Namenda started on January 10 3. Continue with medical treatment. 4. Start Depakote 125 p.o. b.i.d. to target disinhibition. 5. Depakote level for February 17. 6. Waiting for placement. Reason for continued inpatient stay Substantial Risk for: inability to function, rapid decompensation and med/psych decompensation Time Spent With Patient Time: Total time managing care of this patient today __20__ minutes.
--- NOTE | 2024-02-17 15:10 | MHC.CLN ---
F/U DIET=REGULAR. INTAKE AT MEALS USUALLY VERY GOOD, WITH MOST MEALS 100%. FAVORABLE WEIGHT GAIN SINCE ADM WITH CURRENT BMI=18.8. NO ADDITIONAL NUTRITION INTERVENTIONS AT THIS TIME. RD TO FOLLOW WEEKLY.
[2024-02-17 20:00] VITALS: BP 107/65; PULSE 75; RESP 18; TEMP 36.3; O2SAT 94
[2024-02-17] MEDS: traZODone HCL 25 MG HALFTAB PO (20:19)
[2024-02-17] MEDS: Donepezil HCl 10 MG TABLET PO (20:19)
[2024-02-18 08:00] VITALS: BP 112/69; PULSE 68; RESP 18; TEMP 36.2; O2SAT 96
--- NOTE | 2024-02-18 08:00 | P.PNPSI_ITS ---
Subjective Subjective Date of Service: 02/18/24 Reason For Visit: Alzheimers Disease Subjective Notes: Conditional Voluntary Interim History: The nursing staff reported the patient was seen kissing a female peer. On interview the patient denies new symptoms. Waiting for placement. Mental Status Exam Mental Status Exam Patient Appearance: Appropriate Patient Orientation: Person and Situation Level of Consciousness: Awake and Appropriate Patient Behavior: Guarded and Passive Mood Description: Withdrawn Affect Description: Constricted Patient Cognition Impaired: Yes Ability to Follow Directions: Good Speech Pattern: Clear Hallucinations: None Delusions: Not Present Thought Process: Distracted and Slowed Thinking Thought Content: positive for [place] and positive for Poverty of Content Judgement: Poor Diagnostics Vital Signs (24Hr): Vital Signs - 24 hr 02/17/24 20:00 Temperature 97.3 F Pulse Rate 75 Respiratory Rate 18 Blood Pressure 107/65 Pulse Oximetry 94 Oxygen Delivery Method Room Air BMI result Body Mass Index 18.8 Labs 01/02/24 07:18 Medications Medications Current Medications Acetaminophen (Acetaminophen 325 Mg Tablet) 650 mg PO Q6H PRN PRN Reason: Headache/Pain Mild Scale (1-3) Al Hydroxide/Mg Hydroxide (Magnesium Hydrox/Alum Hydrox 30 Ml Oral.Susp) 30 ml PO Q6H PRN PRN Reason: Heartburn/Nausea Divalproex Sodium (Divalproex Sodium Sprinkles 125 Mg [facility].) 125 mg PO BID [facility] Last Admin: 02/17/24 20:19 Dose: 125 mg Donepezil HCl (Donepezil Hcl 10 Mg Tablet) 10 mg PO BEDTIME [facility] Last Admin: 02/17/24 20:19 Dose: 10 mg Folic Acid (Folic Acid 1 Mg Tablet) 1 mg PO DAILY [facility] Last Admin: 02/17/24 08:03 Dose: 1 mg Magnesium Hydroxide (Milk Of Magnesia 30 Ml Oral.Susp) 30 ml PO DAILY PRN PRN Reason: Constipation Memantine (Memantine Hcl 10 Mg Tablet) 10 mg PO BID [facility] Last Admin: 02/17/24 20:19 Dose: 10 mg Olanzapine (Olanzapine 2.5 Mg Tablet) 2.5 mg PO TID PRN PRN Reason: agitation Last Admin: 02/14/24 23:28 Dose: 2.5 mg Trazodone HCl (Trazodone Hcl 25 Mg Halftab) 25 mg PO BEDTIME MRX1 PRN PRN Reason: Insomnia Last Admin: 02/17/24 20:19 Dose: 25 mg Allergies Allergies Allergy/AdvReac Type Severity Reaction Status Date / Time No Known Allergies Allergy Verified 01/26/24 13:17 Assessment & Plan Assessment & Plan (1) Dementia: Status: Acute Code(s): F03.90 - Unspecified dementia, unspecified severity, without behavioral disturbance, psychotic disturbance, mood disturbance, and anxiety Plan There is a documented history of dementia and transfer paperwork. Unclear past psychiatric history in terms of admissions, medications, safety, behaviors etc.. Urgent Care Nurse Practitioner left message for his son with plan to invoke healthcare proxy as patient has clear cognitive impairment (due to dementia), does not understand conditional voluntary details, treatment recommendations etc.. Is not objecting to admission and defers to son (is HCP). Left VM for HCP to invoke same and complete CV. No response. While awaiting same, will complete S12, with view to invoking HCP and completing CV with HCP. 01/08 Mostly isolative, in his bed . He says he is okay but difficult with which to engage, giving one-word answers. Alert to self and location 01/09 No change in presentation. Patient again says he is okay. Today oriented to self but not location, however did know the day of the week Plan 1. Gather collateral information. 2. Start Aricept 5 mg p.o. q.h.s. to target dementia. We will try to go up to 10 mg and then add Namenda since he is [place] is 14/30 and his Adrian test is 3.4. Namenda started on January 10 3. Continue with medical treatment. 4. Start Depakote 125 p.o. b.i.d. to target disinhibition. 5. Depakote level for February 17. 6. Waiting for placement. Reason for continued inpatient stay Substantial Risk for: inability to function, rapid decompensation and med/psych decompensation Time Spent With Patient Time: Total time managing care of this patient today __20__ minutes.
[2024-02-18 08:37] LABS: Valproate 21.5 mcg/mL (50.0-100.0)
[2024-02-18] MEDS: Folic Acid 1 MG TABLET PO (08:51)
[2024-02-18] MEDS: Memantine HCl 10 MG TABLET PO ×2 (08:51→20:13)
[2024-02-18] MEDS: Divalproex Sodium Sprinkles 125 MG CAP.DR.SPR 250 MG PO ×2 (08:54→20:13)
[2024-02-18 12:49] VITALS: BMI 19.1
[2024-02-18 19:47] VITALS: BP 98/58; PULSE 87; RESP 18; TEMP 36.6; O2SAT 97
[2024-02-18] MEDS: Donepezil HCl 10 MG TABLET PO (20:13)
[2024-02-18] MEDS: traZODone HCL 25 MG HALFTAB PO (20:13)
[2024-02-19 08:00] VITALS: BP 110/62; PULSE 72; RESP 18; TEMP 36.7; O2SAT 98
[2024-02-19] MEDS: Memantine HCl 10 MG TABLET PO ×2 (08:33→20:30)
[2024-02-19] MEDS: Folic Acid 1 MG TABLET PO (08:33)
[2024-02-19] MEDS: Divalproex Sodium Sprinkles 125 MG CAP.DR.SPR 250 MG PO ×2 (08:33→20:30)
--- NOTE | 2024-02-19 12:52 | P.PNPSI_ITS ---
Subjective Subjective Date of Service: 02/19/24 Reason For Visit: Alzheimers Disease Subjective Notes: Conditional Voluntary Interim History: The nursing staff reported the patient has poor boundaries, he is easily redirected. The social problems specialist reported that he had been referred to several [facility] facilities no placement yet. On interview the patient denies new symptoms, waiting for placement. Mental Status Exam Mental Status Exam Patient Appearance: Appropriate Patient Orientation: Person and Situation Level of Consciousness: Awake and Appropriate Patient Behavior: Guarded and Passive Mood Description: Withdrawn Affect Description: Constricted Patient Cognition Impaired: Yes Ability to Follow Directions: Good Speech Pattern: Clear Hallucinations: None Delusions: Not Present Thought Process: Distracted Thought Content: positive for [place] and positive for Poverty of Content Judgement: Fair Diagnostics Vital Signs (24Hr): Vital Signs - 24 hr 02/18/24 19:47 02/19/24 08:00 Temperature 97.8 F 98.1 F Pulse Rate 87 72 Respiratory Rate 18 18 Blood Pressure 98/58 L 110/62 Pulse Oximetry 97 98 Oxygen Delivery Method Room Air Room Air BMI result Body Mass Index 19.1 Labs 01/02/24 07:18 Labs: Laboratory Results - last 48 hr 02/18/24 08:21 Valproic Acid 21.5 L Medications Medications Current Medications Acetaminophen (Acetaminophen 325 Mg Tablet) 650 mg PO Q6H PRN PRN Reason: Headache/Pain Mild Scale (1-3) Al Hydroxide/Mg Hydroxide (Magnesium Hydrox/Alum Hydrox 30 Ml Oral.Susp) 30 ml PO Q6H PRN PRN Reason: Heartburn/Nausea Divalproex Sodium (Divalproex Sodium Sprinkles 125 Mg ) 250 mg PO BID [facility] Last Admin: 02/19/24 08:33 Dose: 250 mg Donepezil HCl (Donepezil Hcl 10 Mg Tablet) 10 mg PO BEDTIME [facility] Last Admin: 02/18/24 20:13 Dose: 10 mg Folic Acid (Folic Acid 1 Mg Tablet) 1 mg PO DAILY [facility] Last Admin: 02/19/24 08:33 Dose: 1 mg Magnesium Hydroxide (Milk Of Magnesia 30 Ml Oral.Susp) 30 ml PO DAILY PRN PRN Reason: Constipation Memantine (Memantine Hcl 10 Mg Tablet) 10 mg PO BID [facility] Last Admin: 02/19/24 08:33 Dose: 10 mg Olanzapine (Olanzapine 2.5 Mg Tablet) 2.5 mg PO TID PRN PRN Reason: agitation Last Admin: 02/14/24 23:28 Dose: 2.5 mg Trazodone HCl (Trazodone Hcl 25 Mg Halftab) 25 mg PO BEDTIME MRX1 PRN PRN Reason: Insomnia Last Admin: 02/18/24 20:13 Dose: 25 mg Allergies Allergies Allergy/AdvReac Type Severity Reaction Status Date / Time No Known Allergies Allergy Verified 01/26/24 13:17 Assessment & Plan Assessment & Plan (1) Dementia: Status: Acute Code(s): F03.90 - Unspecified dementia, unspecified severity, without behavioral disturbance, psychotic disturbance, mood disturbance, and anxiety Plan There is a documented history of dementia and transfer paperwork. Unclear past psychiatric history in terms of admissions, medications, safety, behaviors etc.. Siebel Administrator left message for his son with plan to invoke healthcare proxy as patient has clear cognitive impairment (due to dementia), does not understand conditional voluntary details, treatment recommendations etc.. Is not objecting to admission and defers to son (is HCP). Left VM for HCP to invoke same and complete CV. No response. While awaiting same, will complete S12, with view to invoking HCP and completing CV with HCP. 01/08 Mostly isolative, in his bed . He says he is okay but difficult with which to engage, giving one-word answers. Alert to self and location 01/09 No change in presentation. Patient again says he is okay. Today oriented to self but not location, however did know the day of the week Plan 1. Gather collateral information. 2. Start Aricept 5 mg p.o. q.h.s. to target dementia. We will try to go up to 10 mg and then add Namenda since he is [place] is and his Adrian test is 3.4. Namenda started on January 10 3. Continue with medical treatment. 4. Start Depakote 125 p.o. b.i.d. to target disinhibition. 5. Depakote level for February 17. It came back lower so we increase Depakote up to 250 p.o. b.i.d. still disinhibited at times but easily redirectable 6. Waiting for placement. Reason for continued inpatient stay Substantial Risk for: inability to function, rapid decompensation and med/psych decompensation Time Spent With Patient Time: Total time managing care of this patient today __20__ minutes.
[2024-02-19 20:00] VITALS: BP 122/67; PULSE 76; RESP 16; TEMP 36.2; O2SAT 96
[2024-02-19] MEDS: Donepezil HCl 10 MG TABLET PO (20:30)
[2024-02-19] MEDS: traZODone HCL 25 MG HALFTAB PO (20:30)
[2024-02-20 08:00] VITALS: BP 113/55; PULSE 85; RESP 18; TEMP 37; O2SAT 95
[2024-02-20] MEDS: Folic Acid 1 MG TABLET PO (08:55)
[2024-02-20] MEDS: Memantine HCl 10 MG TABLET PO ×2 (08:55→20:40)
[2024-02-20] MEDS: Divalproex Sodium Sprinkles 125 MG CAP.DR.SPR 250 MG PO ×2 (08:55→20:41)
--- NOTE | 2024-02-20 11:10 | P.PNPSI_ITS ---
Subjective Subjective Date of Service: 02/20/24 Reason For Visit: Alzheimers Disease Subjective Notes: Conditional Voluntary Interim History: met with patient. Discussed with Nursing. Overall no management issues. Reports feeling stable. Year for discharge so that he can have more time outside and room for movement and exercise. Feels safe in the hospital. No med concerns. Sleeping well. Attending groups. Medication Compliance: Yes Side effects from medications: No Attending Groups: Yes Review of Systems Acute medical concerns: No Review of Systems Review of Systems Yes all other systems are reviewed and are negative Mental Status Exam Mental Status Exam Narrative: No evidence of SI or HI Patient Appearance: Appropriate Patient Orientation: Person and Situation Level of Consciousness: Awake and Appropriate Patient Behavior: Guarded and Passive Mood Description: Withdrawn Affect Description: Constricted Patient Cognition Impaired: Yes Ability to Follow Directions: Good Speech Pattern: Clear Hallucinations: None Delusions: Not Present Thought Process: Distracted Thought Content: positive for [place] and positive for Poverty of Content Judgement: Fair Diagnostics Vital Signs (24Hr): Vital Signs - 24 hr 02/19/24 20:00 02/20/24 08:00 Temperature 97.2 F 98.6 F Pulse Rate 76 85 Respiratory Rate 16 18 Blood Pressure 122/67 113/55 L Pulse Oximetry 96 95 Oxygen Delivery Method Room Air Room Air BMI result Body Mass Index 19.1 Labs 01/02/24 07:18 Medications Medications Current Medications Acetaminophen (Acetaminophen 325 Mg Tablet) 650 mg PO Q6H PRN PRN Reason: Headache/Pain Mild Scale (1-3) Al Hydroxide/Mg Hydroxide (Magnesium Hydrox/Alum Hydrox 30 Ml Oral.Susp) 30 ml PO Q6H PRN PRN Reason: Heartburn/Nausea Divalproex Sodium (Divalproex Sodium Sprinkles 125 Mg ) 250 mg PO BID [facility] Last Admin: 02/20/24 08:55 Dose: 250 mg Donepezil HCl (Donepezil Hcl 10 Mg Tablet) 10 mg PO BEDTIME [facility] Last Admin: 02/19/24 20:30 Dose: 10 mg Folic Acid (Folic Acid 1 Mg Tablet) 1 mg PO DAILY [facility] Last Admin: 02/20/24 08:55 Dose: 1 mg Magnesium Hydroxide (Milk Of Magnesia 30 Ml Oral.Susp) 30 ml PO DAILY PRN PRN Reason: Constipation Memantine (Memantine Hcl 10 Mg Tablet) 10 mg PO BID [facility] Last Admin: 02/20/24 08:55 Dose: 10 mg Olanzapine (Olanzapine 2.5 Mg Tablet) 2.5 mg PO TID PRN PRN Reason: agitation Last Admin: 02/14/24 23:28 Dose: 2.5 mg Trazodone HCl (Trazodone Hcl 25 Mg Halftab) 25 mg PO BEDTIME MRX1 PRN PRN Reason: Insomnia Last Admin: 02/19/24 20:30 Dose: 25 mg Allergies Allergies Allergy/AdvReac Type Severity Reaction Status Date / Time No Known Allergies Allergy Verified 01/26/24 13:17 Assessment & Plan Assessment & Plan (1) Dementia: Status: Acute Code(s): F03.90 - Unspecified dementia, unspecified severity, without behavioral disturbance, psychotic disturbance, mood disturbance, and anxiety Plan There is a documented history of dementia and transfer paperwork. Unclear past psychiatric history in terms of admissions, medications, safety, behaviors etc.. 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 Is not objecting to admission and defers to son (is HCP). Left VM for HCP to invoke same and complete CV. No response. While awaiting same, will complete S12, with view to invoking HCP and completing CV with HCP. 01/08 Mostly isolative, in his bed . He says he is okay but difficult with which to engage, giving one-word answers. Alert to self and location 01/09 No change in presentation. Patient again says he is okay. Today oriented to self but not location, however did know the day of the week Plan 1. Gather collateral information. 2. Start Aricept 5 mg p.o. q.h.s. to target dementia. We will try to go up to 10 mg and then add Namenda since he is [place] is and his Adrian test is 3.4. Namenda started on January 10 3. Continue with medical treatment. 4. Start Depakote 125 p.o. b.i.d. to target disinhibition. 5. Depakote level for February 17. It came back lower so we increase Depakote up to 250 p.o. b.i.d. still disinhibited at times but easily redirectable 6. Waiting for placement. 02/20/2024: No changes to current treatment plan- noted Namenda and Depakote dosing rationale and timing Reason for continued inpatient stay Substantial Risk for: rapid decompensation Time Spent With Patient Time: Total time managing care of this patient today ____ minutes.
[2024-02-20 20:00] VITALS: BP 106/60; PULSE 79; RESP 16; TEMP 36.2; O2SAT 94
[2024-02-20] MEDS: traZODone HCL 25 MG HALFTAB PO (20:40)
[2024-02-20] MEDS: Donepezil HCl 10 MG TABLET PO (20:41)
[2024-02-21 08:00] VITALS: BP 125/71; PULSE 65; RESP 18; TEMP 36.4; O2SAT 97
[2024-02-21] MEDS: Folic Acid 1 MG TABLET PO (08:07)
[2024-02-21] MEDS: Memantine HCl 10 MG TABLET PO ×2 (08:07→21:22)
[2024-02-21] MEDS: Divalproex Sodium Sprinkles 125 MG CAP.DR.SPR 250 MG PO ×2 (08:08→21:22)
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
[2024-02-21 20:00] VITALS: BP 97/53; PULSE 67; TEMP 36; O2SAT 97
[2024-02-21] MEDS: Donepezil HCl 10 MG TABLET PO (21:22)
[2024-02-21] MEDS: traZODone HCL 25 MG HALFTAB PO (21:22)
[2024-02-22 08:00] VITALS: BP 100/59; PULSE 69; RESP 16; TEMP 36.1; O2SAT 94
[2024-02-22] MEDS: Divalproex Sodium Sprinkles 125 MG CAP.DR.SPR 250 MG PO ×2 (08:26→21:14)
[2024-02-22] MEDS: Folic Acid 1 MG TABLET PO (08:27)
[2024-02-22] MEDS: Memantine HCl 10 MG TABLET PO ×2 (08:27→21:14)
--- NOTE | 2024-02-22 14:31 | P.PNPSI_ITS ---
Subjective Subjective Date of Service: 02/22/24 Reason For Visit: Alzheimers Disease Subjective Notes: Conditional Voluntary Interim History: The nursing staff reported no changes in his mental status cooperative pleasant On interview the patient denies new symptoms, waiting for placement. Mental Status Exam Mental Status Exam Patient Appearance: Appropriate Patient Orientation: Person and Situation Level of Consciousness: Awake and Appropriate Patient Behavior: Guarded and Passive Mood Description: Withdrawn Affect Description: Blunted Patient Cognition Impaired: Yes Ability to Follow Directions: Good Speech Pattern: Clear Hallucinations: None Delusions: Not Present Thought Process: Distracted and Slowed Thinking Thought Content: positive for [place] and positive for Circumstantial Judgement: Poor Diagnostics Vital Signs (24Hr): Vital Signs - 24 hr 02/21/24 20:00 02/22/24 08:00 Temperature 96.8 F 97 F Pulse Rate 67 69 Respiratory Rate 16 Blood Pressure 97/53 L 100/59 L Pulse Oximetry 97 94 Oxygen Delivery Method Room Air Room Air BMI result Body Mass Index 19.1 Labs 01/02/24 07:18 Medications Medications Current Medications Acetaminophen (Acetaminophen 325 Mg Tablet) 650 mg PO Q6H PRN PRN Reason: Headache/Pain Mild Scale (1-3) Al Hydroxide/Mg Hydroxide (Magnesium Hydrox/Alum Hydrox 30 Ml Oral.Susp) 30 ml PO Q6H PRN PRN Reason: Heartburn/Nausea Divalproex Sodium (Divalproex Sodium Sprinkles 125 Mg ) 250 mg PO BID [facility] Last Admin: 02/22/24 08:26 Dose: 250 mg Donepezil HCl (Donepezil Hcl 10 Mg Tablet) 10 mg PO BEDTIME [facility] Last Admin: 02/21/24 21:22 Dose: 10 mg Folic Acid (Folic Acid 1 Mg Tablet) 1 mg PO DAILY [facility] Last Admin: 02/22/24 08:27 Dose: 1 mg Magnesium Hydroxide (Milk Of Magnesia 30 Ml Oral.Susp) 30 ml PO DAILY PRN PRN Reason: Constipation Memantine (Memantine Hcl 10 Mg Tablet) 10 mg PO BID [facility] Last Admin: 02/22/24 08:27 Dose: 10 mg Olanzapine (Olanzapine 2.5 Mg Tablet) 2.5 mg PO TID PRN PRN Reason: agitation Last Admin: 02/14/24 23:28 Dose: 2.5 mg Trazodone HCl (Trazodone Hcl 25 Mg Halftab) 25 mg PO BEDTIME MRX1 PRN PRN Reason: Insomnia Last Admin: 02/21/24 21:22 Dose: 25 mg Allergies Allergies Allergy/AdvReac Type Severity Reaction Status Date / Time No Known Allergies Allergy Verified 01/26/24 13:17 Assessment & Plan Assessment & Plan (1) Dementia: Status: Acute Code(s): F03.90 - Unspecified dementia, unspecified severity, without behavioral disturbance, psychotic disturbance, mood disturbance, and anxiety Plan There is a documented history of dementia and transfer paperwork. Unclear past psychiatric history in terms of admissions, medications, safety, behaviors etc.. Basket Turner left message for his son with plan to invoke healthcare proxy as patient has clear cognitive impairment (due to dementia), does not understand conditional voluntary details, treatment recommendations etc.. Is not objecting to admission and defers to son (is HCP). Left VM for HCP to invoke same and complete CV. No response. While awaiting same, will complete S12, with view to invoking HCP and completing CV with HCP. 01/08 Mostly isolative, in his bed . He says he is okay but difficult with which to engage, giving one-word answers. Alert to self and location 01/09 No change in presentation. Patient again says he is okay. Today oriented to self but not location, however did know the day of the week Plan 1. Gather collateral information. 2. Start Aricept 5 mg p.o. q.h.s. to target dementia. We will try to go up to 10 mg and then add Namenda since he is [place] is 14/30 and his Adrian test is 3.4. Namenda started on January 10 3. Continue with medical treatment. 4. Start Depakote 125 p.o. b.i.d. to target disinhibition. 5. Depakote level for February 17. It came back lower so we increase Depakote up to 250 p.o. b.i.d. still disinhibited at times but easily redirectable 6. Waiting for placement. 7. Reassessment with results Reason for continued inpatient stay Substantial Risk for: inability to function, rapid decompensation and med/psych decompensation Time Spent With Patient Time: Total time managing care of this patient today __20__ minutes.
[2024-02-22 19:57] VITALS: BP 92/60; PULSE 69; RESP 16; TEMP 36.6; O2SAT 97
[2024-02-22] MEDS: traZODone HCL 25 MG HALFTAB PO (21:14)
[2024-02-22] MEDS: Donepezil HCl 10 MG TABLET PO (21:14)
[2024-02-23 08:30] VITALS: BP 99/54; PULSE 76; RESP 18; TEMP 36.2; O2SAT 95
[2024-02-23] MEDS: Divalproex Sodium Sprinkles 125 MG CAP.DR.SPR 250 MG PO ×2 (08:37→20:11)
[2024-02-23] MEDS: Folic Acid 1 MG TABLET PO (08:37)
[2024-02-23] MEDS: Memantine HCl 10 MG TABLET PO ×2 (08:37→20:11)
--- NOTE | 2024-02-23 11:22 | HO.PSYCHPN ---
Subjective Subjective Date of Service: 02/23/24 Reason For Visit: Alzheimers Disease Subjective Notes: Conditional Voluntary Interim History: The nursing staff reported no changes in his mental status, pleasant cooperative easily redirectable. Waiting for placement. Mental Status Exam Mental Status Exam Patient Appearance: Appropriate Patient Orientation: Person and Situation Level of Consciousness: Awake and Appropriate Patient Behavior: Guarded and Passive Mood Description: Withdrawn Affect Description: Constricted Patient Cognition Impaired: Yes Ability to Follow Directions: Good Speech Pattern: Clear Hallucinations: None Delusions: Not Present Thought Process: Distracted and Slowed Thinking Thought Content: positive for [place] and positive for Poverty of Content Judgement: Fair Diagnostics Vital Signs (24Hr): Vital Signs - 24 hr 02/22/24 19:57 02/23/24 08:30 Temperature 97.9 F 97.2 F Pulse Rate 69 76 Respiratory Rate 16 18 Blood Pressure 92/60 99/54 L Pulse Oximetry 97 95 Oxygen Delivery Method Room Air Room Air BMI result Body Mass Index 19.1 Labs 01/02/24 07:18 Medications Medications Current Medications Acetaminophen (Acetaminophen 325 Mg Tablet) 650 mg PO Q6H PRN PRN Reason: Headache/Pain Mild Scale (1-3) Al Hydroxide/Mg Hydroxide (Magnesium Hydrox/Alum Hydrox 30 Ml Oral.Susp) 30 ml PO Q6H PRN PRN Reason: Heartburn/Nausea Divalproex Sodium (Divalproex Sodium Sprinkles 125 Mg ) 250 mg PO BID [facility] Last Admin: 02/23/24 08:37 Dose: 250 mg Donepezil HCl (Donepezil Hcl 10 Mg Tablet) 10 mg PO BEDTIME [facility] Last Admin: 02/22/24 21:14 Dose: 10 mg Folic Acid (Folic Acid 1 Mg Tablet) 1 mg PO DAILY [facility] Last Admin: 02/23/24 08:37 Dose: 1 mg Magnesium Hydroxide (Milk Of Magnesia 30 Ml Oral.Susp) 30 ml PO DAILY PRN PRN Reason: Constipation Memantine (Memantine Hcl 10 Mg Tablet) 10 mg PO BID [facility] Last Admin: 02/23/24 08:37 Dose: 10 mg Olanzapine (Olanzapine 2.5 Mg Tablet) 2.5 mg PO TID PRN PRN Reason: agitation Last Admin: 02/14/24 23:28 Dose: 2.5 mg Trazodone HCl (Trazodone Hcl 25 Mg Halftab) 25 mg PO BEDTIME MRX1 PRN PRN Reason: Insomnia Last Admin: 02/22/24 21:14 Dose: 25 mg Allergies Allergies Allergy/AdvReac Type Severity Reaction Status Date / Time No Known Allergies Allergy Verified 01/26/24 13:17 Assessment & Plan Assessment & Plan (1) Dementia: Status: Acute Code(s): F03.90 - Unspecified dementia, unspecified severity, without behavioral disturbance, psychotic disturbance, mood disturbance, and anxiety Plan There is a documented history of dementia and transfer paperwork. Unclear past psychiatric history in terms of admissions, medications, safety, behaviors etc.. 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 Is not objecting to admission and defers to son (is HCP). Left VM for HCP to invoke same and complete CV. No response. While awaiting same, will complete S12, with view to invoking HCP and completing CV with HCP. 01/08 Mostly isolative, in his bed . He says he is okay but difficult with which to engage, giving one-word answers. Alert to self and location 01/09 No change in presentation. Patient again says he is okay. Today oriented to self but not location, however did know the day of the week Plan 1. Gather collateral information. 2. Start Aricept 5 mg p.o. q.h.s. to target dementia. We will try to go up to 10 mg and then add Namenda since he is [place] is 14/30 and his Adrian test is 3.4. Namenda started on January 10 3. Continue with medical treatment. 4. Start Depakote 125 p.o. b.i.d. to target disinhibition. 5. Depakote level for February 17. It came back lower so we increase Depakote up to 250 p.o. b.i.d. still disinhibited at times but easily redirectable 6. Waiting for placement. 7. Reassessment with results Reason for continued inpatient stay Substantial Risk for: inability to function, rapid decompensation and med/psych decompensation Time Spent With Patient Time: Total time managing care of this patient today __20__ minutes.
[2024-02-23 20:00] VITALS: BP 120/74; PULSE 79; TEMP 36.6; O2SAT 97
[2024-02-23] MEDS: traZODone HCL 25 MG HALFTAB PO (20:10)
[2024-02-23] MEDS: Donepezil HCl 10 MG TABLET PO (20:11)
[2024-02-24 08:00] VITALS: BP 122/72; PULSE 64; RESP 16; TEMP 36.2; O2SAT 92
[2024-02-24] MEDS: Divalproex Sodium Sprinkles 125 MG CAP.DR.SPR 250 MG PO ×2 (08:36→20:53)
[2024-02-24] MEDS: Memantine HCl 10 MG TABLET PO ×2 (08:36→20:53)
[2024-02-24] MEDS: Folic Acid 1 MG TABLET PO (08:37)
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
--- NOTE | 2024-02-24 13:55 | PC.NURSE ---
Patient transferred to today at 1245.
[2024-02-24 20:00] VITALS: BP 126/58; PULSE 84; RESP 16; TEMP 36.8; O2SAT 95
[2024-02-24] MEDS: traZODone HCL 25 MG HALFTAB PO (20:53)
[2024-02-24] MEDS: Donepezil HCl 10 MG TABLET PO (20:53)
[2024-02-25 07:59] VITALS: BP 129/61; PULSE 60; RESP 17; TEMP 36.3; O2SAT 97
[2024-02-25] MEDS: Memantine HCl 10 MG TABLET PO ×2 (08:31→20:53)
[2024-02-25] MEDS: Folic Acid 1 MG TABLET PO (08:32)
[2024-02-25] MEDS: Divalproex Sodium Sprinkles 125 MG CAP.DR.SPR 250 MG PO ×2 (08:32→20:52)
[2024-02-25 19:55] VITALS: BP 133/74; PULSE 67; RESP 18; TEMP 36.4; O2SAT 97
--- NOTE | 2024-02-25 20:20 | P.PNPSI_ITS ---
Subjective Subjective Date of Service: 02/25/24 Reason For Visit: Alzheimers Disease Interim History: Met with patient; discussed with team Patient calm, cooperative on approach, doing some drawings on his own. He said he is feeling good and has no complaints or requests. Service Order Dispatcher asked if he understood why he was transferred up to this floor. Patient said no they just moved me up. Service Order Dispatcher broached the topic that patient was romantically fixated on a peer downstairs however patient said no he does not think that is true. Mental Status Exam Mental Status Exam Patient Appearance: Well Grooomed and Appropriate Patient Orientation: Person and Place Level of Consciousness: Awake and Appropriate Patient Behavior: Appropriate, Cooperative and Good Eye Contact Mood Description: Happy Affect Description: Calm Patient Cognition Impaired: Yes Ability to Follow Directions: Fair Speech Pattern: Clear Memory Description: Normal for Patient (Impaired at baseline) Hallucinations: None Delusions: Not Present Thought Process: Goal Oriented and Slowed Thinking Thought Content: positive for [place], positive for Circumstantial and positive for Poverty of Content Judgement: Poor Judgement and Insight: Impair Diagnostics Vital Signs (24Hr): Vital Signs - 24 hr 02/25/24 07:59 02/25/24 19:55 Temperature 97.3 F 97.6 F Pulse Rate 60 67 Respiratory Rate 17 18 Blood Pressure 129/61 133/74 Pulse Oximetry 97 97 Oxygen Delivery Method Room Air Room Air BMI result Body Mass Index 19.1 Labs 01/02/24 07:18 Medications Medications Current Medications Acetaminophen (Acetaminophen 325 Mg Tablet) 650 mg PO Q6H PRN PRN Reason: Headache/Pain Mild Scale (1-3) Al Hydroxide/Mg Hydroxide (Magnesium Hydrox/Alum Hydrox 30 Ml Oral.Susp) 30 ml PO Q6H PRN PRN Reason: Heartburn/Nausea Divalproex Sodium (Divalproex Sodium Sprinkles 125 Mg ) 250 mg PO BID [facility] Last Admin: 02/25/24 08:32 Dose: 250 mg Donepezil HCl (Donepezil Hcl 10 Mg Tablet) 10 mg PO BEDTIME [facility] Last Admin: 02/24/24 20:53 Dose: 10 mg Folic Acid (Folic Acid 1 Mg Tablet) 1 mg PO DAILY [facility] Last Admin: 02/25/24 08:32 Dose: 1 mg Magnesium Hydroxide (Milk Of Magnesia 30 Ml Oral.Susp) 30 ml PO DAILY PRN PRN Reason: Constipation Memantine (Memantine Hcl 10 Mg Tablet) 10 mg PO BID [facility] Last Admin: 02/25/24 08:31 Dose: 10 mg Olanzapine (Olanzapine 2.5 Mg Tablet) 2.5 mg PO TID PRN PRN Reason: agitation Last Admin: 02/14/24 23:28 Dose: 2.5 mg Trazodone HCl (Trazodone Hcl 25 Mg Halftab) 25 mg PO BEDTIME MRX1 PRN PRN Reason: Insomnia Last Admin: 02/24/24 20:53 Dose: 25 mg Allergies Allergies Allergy/AdvReac Type Severity Reaction Status Date / Time No Known Allergies Allergy Verified 01/26/24 13:17 Assessment & Plan Assessment & Plan (1) Dementia: Status: Acute Code(s): F03.90 - Unspecified dementia, unspecified severity, without behavioral disturbance, psychotic disturbance, mood disturbance, and anxiety Plan There is a documented history of dementia and transfer paperwork. Unclear past psychiatric history in terms of admissions, medications, safety, behaviors etc.. Service Order Dispatcher left message for his son with plan to invoke healthcare proxy as patient has clear cognitive impairment (due to dementia), does not understand conditional voluntary details, treatment recommendations etc.. Is not objecting to admission and defers to son (is HCP). Left VM for HCP to invoke same and complete CV. No response. While awaiting same, will complete S12, with view to invoking HCP and completing CV with HCP. 01/08 Mostly isolative, in his bed . He says he is okay but difficult with which to engage, giving one-word answers. Alert to self and location 01/09 No change in presentation. Patient again says he is okay. Today oriented to self but not location, however did know the day of the week 02/23 patient transferred to M5 from the geriatric unit since he was having inappropriate and unsolicited/unwanted sexualized behavior towards female peer on the geriatric unit, unable to be redirected 02/24 patient has been in good behavioral and impulse control on M5, casually social with peers. No complaints and no request. -continue current treatment plan Plan Healthcare proxy invoked Q 15 minute checks Aricept 5 mg p.o. q.h.s. to target dementia. We will try to go up to 10 mg and then add Namenda since he is [place] is 14/30 and his Adrian test is 3.4. Namenda started on January 10 Continue with medical treatment. Depakote up to 250 p.o. b.i.d. still disinhibited at times but easily redirectable aiting for placement. Patient educated on: diagnosis Informed Consent: does not understand Reason for continued inpatient stay Substantial Risk for: inability to function Time Spent With Patient Time: Total time managing care of this patient today ____ minutes.
[2024-02-25] MEDS: traZODone HCL 25 MG HALFTAB PO (20:52)
[2024-02-25] MEDS: Donepezil HCl 10 MG TABLET PO (20:52)
[2024-02-26] MEDS: Memantine HCl 10 MG TABLET PO ×2 (08:08→22:06)
[2024-02-26] MEDS: Divalproex Sodium Sprinkles 125 MG CAP.DR.SPR 250 MG PO ×2 (08:08→22:05)
[2024-02-26] MEDS: Folic Acid 1 MG TABLET PO (08:08)
[2024-02-26 08:41] VITALS: BP 113/66; PULSE 59; RESP 18; TEMP 36.4; O2SAT 97
--- NOTE | 2024-02-26 08:48 | P.PNPSI_ITS ---
Subjective Subjective Date of Service: 02/26/24 Reason For Visit: Alzheimers Disease Interim History: Met with patient; discussed with team Patient reports that overall he is doing good however he reports right testicular discomfort and thinks he may have a cyst; he did make a reference to the fact that currently he is not sexually active. Application Infrastructure Engineer agreed to put in consult. Otherwise patient reports he is eating and sleeping well. Mental Status Exam Mental Status Exam Patient Appearance: Well Grooomed and Appropriate Patient Orientation: Person and Place Level of Consciousness: Awake and Appropriate Patient Behavior: Appropriate, Cooperative and Good Eye Contact Mood Description: Calm Affect Description: Calm Patient Cognition Impaired: Yes Ability to Follow Directions: Fair Speech Pattern: Clear Memory Description: Normal for Patient (Impaired at baseline) Hallucinations: None Delusions: Not Present Thought Process: Goal Oriented and Slowed Thinking Thought Content: positive for [place], positive for Circumstantial and positive for Poverty of Content Judgement: Poor Judgement and Insight: Impair Diagnostics Vital Signs (24Hr): Vital Signs - 24 hr 02/25/24 19:55 02/26/24 08:41 Temperature 97.6 F 97.5 F Pulse Rate 67 59 Respiratory Rate 18 18 Blood Pressure 133/74 113/66 Pulse Oximetry 97 97 Oxygen Delivery Method Room Air Room Air BMI result Body Mass Index 19.1 Labs 01/02/24 07:18 Medications Medications Current Medications Acetaminophen (Acetaminophen 325 Mg Tablet) 650 mg PO Q6H PRN PRN Reason: Headache/Pain Mild Scale (1-3) Al Hydroxide/Mg Hydroxide (Magnesium Hydrox/Alum Hydrox 30 Ml Oral.Susp) 30 ml PO Q6H PRN PRN Reason: Heartburn/Nausea Divalproex Sodium (Divalproex Sodium Sprinkles 125 Mg ) 250 mg PO BID [facility] Last Admin: 02/26/24 08:08 Dose: 250 mg Donepezil HCl (Donepezil Hcl 10 Mg Tablet) 10 mg PO BEDTIME [facility] Last Admin: 02/25/24 20:52 Dose: 10 mg Folic Acid (Folic Acid 1 Mg Tablet) 1 mg PO DAILY [facility] Last Admin: 02/26/24 08:08 Dose: 1 mg Magnesium Hydroxide (Milk Of Magnesia 30 Ml Oral.Susp) 30 ml PO DAILY PRN PRN Reason: Constipation Memantine (Memantine Hcl 10 Mg Tablet) 10 mg PO BID [facility] Last Admin: 02/26/24 08:08 Dose: 10 mg Olanzapine (Olanzapine 2.5 Mg Tablet) 2.5 mg PO TID PRN PRN Reason: agitation Last Admin: 02/14/24 23:28 Dose: 2.5 mg Trazodone HCl (Trazodone Hcl 25 Mg Halftab) 25 mg PO BEDTIME MRX1 PRN PRN Reason: Insomnia Last Admin: 02/25/24 20:52 Dose: 25 mg Allergies Allergies Allergy/AdvReac Type Severity Reaction Status Date / Time No Known Allergies Allergy Verified 01/26/24 13:17 Assessment & Plan Assessment & Plan (1) Dementia: Status: Acute Code(s): F03.90 - Unspecified dementia, unspecified severity, without behavioral disturbance, psychotic disturbance, mood disturbance, and anxiety Plan There is a documented history of dementia and transfer paperwork. Unclear past psychiatric history in terms of admissions, medications, safety, behaviors etc.. Application Infrastructure Engineer left message for his son with plan to invoke healthcare proxy as patient has clear cognitive impairment (due to dementia), does not understand conditional voluntary details, treatment recommendations etc.. Is not objecting to admission and defers to son (is HCP). Left VM for HCP to invoke same and complete CV. No response. While awaiting same, will complete S12, with view to invoking HCP and completing CV with HCP. 01/08 Mostly isolative, in his bed . He says he is okay but difficult with which to engage, giving one-word answers. Alert to self and location 01/09 No change in presentation. Patient again says he is okay. Today oriented to self but not location, however did know the day of the week 02/23 patient transferred to from the geriatric unit since he was having inappropriate and unsolicited/unwanted sexualized behavior towards female peer on the geriatric unit, unable to be redirected 02/24 patient has been in good behavioral and impulse control on M5, casually social with peers. No complaints and no request. -continue current treatment plan 02/25 Patient reports that overall he is doing good however he reports right testicular discomfort and thinks he may have a cyst; he did make a reference to the fact that currently he is not sexually active. Application Infrastructure Engineer agreed to put in consult. Otherwise patient reports he is eating and sleeping well. -at this time patient has not been sexually inappropriate with peers; would consider possibly adding Prozac if this becomes an issue -consult placed for testicular complaint Plan Healthcare proxy invoked Q 15 minute checks Aricept 10 mg q.h.s. Namenda 10 mg b.i.d. Depakote 250 mg b.i.d. waiting for placement. Patient educated on: diagnosis, medication risk/benefits and medical condition Informed Consent: understands Reason for continued inpatient stay Substantial Risk for: inability to function Time Spent With Patient Time: Total time managing care of this patient today ____ minutes.
[2024-02-26] MEDS: FLUoxetine HCl 10 MG CAPSULE PO (09:53)
[2024-02-26 19:20] VITALS: BP 109/71; PULSE 76; TEMP 36.4; O2SAT 98
[2024-02-26] MEDS: traZODone HCL 25 MG HALFTAB PO (22:05)
[2024-02-26] MEDS: Donepezil HCl 10 MG TABLET PO (22:06)
--- NOTE | 2024-02-27 08:45 | HO.PSYCHPN ---
Subjective Subjective Date of Service: 02/27/24 Reason For Visit: Alzheimers Disease Subjective Notes: Conditional Voluntary Interim History: Pt slept through the night. He denies physical concerns. visible on the unit. He had visit from daughter. No behavioral concerns. No SI/HI. Review of Systems Review of Systems nothing acute Yes all other systems are reviewed and are negative Mental Status Exam Mental Status Exam Patient Appearance: Well Grooomed and Appropriate Patient Orientation: Person and Place Level of Consciousness: Awake and Appropriate Patient Behavior: Appropriate, Cooperative and Good Eye Contact Mood Description: Calm Affect Description: Calm Patient Cognition Impaired: Yes Ability to Follow Directions: Fair Speech Pattern: Clear Memory Description: Normal for Patient (Impaired at baseline) Diagnostics Vital Signs (24Hr): Vital Signs - 24 hr 02/26/24 19:20 Temperature 97.5 F Pulse Rate 76 Blood Pressure 109/71 Pulse Oximetry 98 Oxygen Delivery Method Room Air BMI result Body Mass Index 19.1 Labs 01/02/24 07:18 Medications Medications Current Medications Acetaminophen (Acetaminophen 325 Mg Tablet) 650 mg PO Q6H PRN PRN Reason: Headache/Pain Mild Scale (1-3) Al Hydroxide/Mg Hydroxide (Magnesium Hydrox/Alum Hydrox 30 Ml Oral.Susp) 30 ml PO Q6H PRN PRN Reason: Heartburn/Nausea Divalproex Sodium (Divalproex Sodium Sprinkles 125 Mg ) 250 mg PO BID [facility] Last Admin: 02/26/24 22:05 Dose: 250 mg Donepezil HCl (Donepezil Hcl 10 Mg Tablet) 10 mg PO BEDTIME [facility] Last Admin: 02/26/24 22:06 Dose: 10 mg Fluoxetine HCl (Fluoxetine Hcl 10 Mg Capsule) 10 mg PO DAILY [facility] Last Admin: 02/26/24 09:53 Dose: 10 mg Folic Acid (Folic Acid 1 Mg Tablet) 1 mg PO DAILY [facility] Last Admin: 02/26/24 08:08 Dose: 1 mg Magnesium Hydroxide (Milk Of Magnesia 30 Ml Oral.Susp) 30 ml PO DAILY PRN PRN Reason: Constipation Memantine (Memantine Hcl 10 Mg Tablet) 10 mg PO BID [facility] Last Admin: 02/26/24 22:06 Dose: 10 mg Olanzapine (Olanzapine 2.5 Mg Tablet) 2.5 mg PO TID PRN PRN Reason: agitation Last Admin: 02/14/24 23:28 Dose: 2.5 mg Trazodone HCl (Trazodone Hcl 25 Mg Halftab) 25 mg PO BEDTIME MRX1 PRN PRN Reason: Insomnia Last Admin: 02/26/24 22:05 Dose: 25 mg Allergies Allergies Allergy/AdvReac Type Severity Reaction Status Date / Time No Known Allergies Allergy Verified 01/26/24 13:17 Assessment & Plan Assessment & Plan (1) Dementia: Status: Acute Code(s): F03.90 - Unspecified dementia, unspecified severity, without behavioral disturbance, psychotic disturbance, mood disturbance, and anxiety Plan There is a documented history of dementia and transfer paperwork. Unclear past psychiatric history in terms of admissions, medications, safety, behaviors etc.. Eap Counselor left message for his son with plan to invoke healthcare proxy as patient has clear cognitive impairment (due to dementia), does not understand conditional voluntary details, treatment recommendations etc.. Is not objecting to admission and defers to son (is HCP). Left VM for HCP to invoke same and complete CV. No response. While awaiting same, will complete S12, with view to invoking HCP and completing CV with HCP. 01/08 Mostly isolative, in his bed . He says he is okay but difficult with which to engage, giving one-word answers. Alert to self and location 01/09 No change in presentation. Patient again says he is okay. Today oriented to self but not location, however did know the day of the week 02/23 patient transferred to from the geriatric unit since he was having inappropriate and unsolicited/unwanted sexualized behavior towards female peer on the geriatric unit, unable to be redirected 02/24 patient has been in good behavioral and impulse control on , casually social with peers. No complaints and no request. -continue current treatment plan 02/25 Patient reports that overall he is doing good however he reports right testicular discomfort and thinks he may have a cyst; he did make a reference to the fact that currently he is not sexually active. Eap Counselor agreed to put in consult. Otherwise patient reports he is eating and sleeping well. -at this time patient has not been sexually inappropriate with peers; would consider possibly adding Prozac if this becomes an issue -consult placed for testicular complaint 02/26 continue tx. Plan Healthcare proxy invoked Q 15 minute checks Aricept 10 mg q.h.s. Namenda 10 mg b.i.d. Depakote 250 mg b.i.d. waiting for placement. Reason for continued inpatient stay Substantial Risk for: inability to function Time Spent With Patient Time: Total time managing care of this patient today ____ minutes.
[2024-02-27 09:00] VITALS: BP 104/62; PULSE 81; RESP 18; TEMP 36.6; O2SAT 94
--- NOTE | 2024-02-27 09:09 | HO.PM.IMCN ---
History of Present Illness Data of Consult Primary Care Provider: COLTON LAMAR MD [facility] Social History Currently Displaying Signs/Symptoms of Drug Intoxication Withdrawal: No Advance Directives: No Advance Directives Information Provided: Yes Do you have thoughts of harming others: None Do you have a plan to hurt others: No Plan service: Yes ([employer]) Sexual orientation: Straight/Heterosexual Meds Allergies Allergy/AdvReac Type Severity Reaction Status Date / Time No Known Allergies Allergy Verified 01/26/24 13:17 Active Medications: Current Medications Acetaminophen (Acetaminophen 325 Mg Tablet) 650 mg PO Q6H PRN PRN Reason: Headache/Pain Mild Scale (1-3) Al Hydroxide/Mg Hydroxide (Magnesium Hydrox/Alum Hydrox 30 Ml Oral.Susp) 30 ml PO Q6H PRN PRN Reason: Heartburn/Nausea Divalproex Sodium (Divalproex Sodium Sprinkles 125 Mg [place].) 250 mg PO BID [facility] Last Admin: 02/26/24 22:05 Dose: 250 mg Donepezil HCl (Donepezil Hcl 10 Mg Tablet) 10 mg PO BEDTIME [facility] Last Admin: 02/26/24 22:06 Dose: 10 mg Fluoxetine HCl (Fluoxetine Hcl 10 Mg Capsule) 10 mg PO DAILY [facility] Last Admin: 02/26/24 09:53 Dose: 10 mg Folic Acid (Folic Acid 1 Mg Tablet) 1 mg PO DAILY [facility] Last Admin: 02/26/24 08:08 Dose: 1 mg Magnesium Hydroxide (Milk Of Magnesia 30 Ml Oral.Susp) 30 ml PO DAILY PRN PRN Reason: Constipation Memantine (Memantine Hcl 10 Mg Tablet) 10 mg PO BID [facility] Last Admin: 02/26/24 22:06 Dose: 10 mg Olanzapine (Olanzapine 2.5 Mg Tablet) 2.5 mg PO TID PRN PRN Reason: agitation Last Admin: 02/14/24 23:28 Dose: 2.5 mg Trazodone HCl (Trazodone Hcl 25 Mg Halftab) 25 mg PO BEDTIME MRX1 PRN PRN Reason: Insomnia Last Admin: 02/26/24 22:05 Dose: 25 mg Home Medications ?Medication ?Instructions ?Recorded ?Confirmed ?Last Taken ?Type fluoxetine 40 mg PO DAILY 01/01/24 01/01/24 Unknown History folic acid 1 mg PO DAILY 01/01/24 01/01/24 Unknown History melatonin 3 mg PO BEDTIME 01/01/24 01/01/24 Unknown History Physical Exam Vital Signs and Narrative: Vital Signs: Last Vital Signs Temp 97.5 F 02/26/24 19:20 Pulse 76 02/26/24 19:20 Resp 18 02/26/24 08:41 BP 109/71 02/26/24 19:20 Pulse Ox 98 02/26/24 19:20 O2 Del Method Room Air 02/26/24 19:20 BMI result Body Mass Index 19.1 Results Labs 01/02/24 07:18
[2024-02-27] MEDS: Divalproex Sodium Sprinkles 125 MG CAP.DR.SPR 250 MG PO ×2 (09:30→20:11)
[2024-02-27] MEDS: Memantine HCl 10 MG TABLET PO ×2 (09:30→20:11)
[2024-02-27] MEDS: Folic Acid 1 MG TABLET PO (09:30)
[2024-02-27] MEDS: FLUoxetine HCl 10 MG CAPSULE PO (09:31)
[2024-02-27 12:56] LABS: Appearance Urine Clear; Color Urine Yellow; Glucose Urine UA Negative (Negative); Leukocyte Esterase Urine Negative (Negative); Nitrite Urine Negative (Negative); Specific Gravity - Urine 1.015 (1.005-1.025); Urine Blood Negative (Negative); Urine Ketones Negative (Negative); Urine Protein Negative (Neg-Trace)
--- NOTE | 2024-02-27 12:56 | PM.EVENT ---
Event Note Date of Service: 02/27/24 Event Note: Pt reporting right sided testicular pain. Ultrasound ordered reveals a 5.9 x 4.1 x 4.2 cm epididymal cyst. No radiographic evidence of epididymitis. However would still check UA and gonorrhea/chlamydia PCR. Recommend attending provider placing urology consult for further evaluation and management. Thank you for allowing me to participate in this consult. Signing off at this time. Please do not hesitate to call for further questions or for any acute concerns Time Spent With Patient Time: Total time managing care of this patient today ____ minutes.
[2024-02-27 20:00] VITALS: BP 109/58; PULSE 69; RESP 16; TEMP 36.7; O2SAT 96
[2024-02-27] MEDS: Donepezil HCl 10 MG TABLET PO (20:11)
[2024-02-27] MEDS: traZODone HCL 25 MG HALFTAB PO (20:11)
[2024-02-28] MEDS: Divalproex Sodium Sprinkles 125 MG CAP.DR.SPR 250 MG PO ×2 (09:02→21:32)
[2024-02-28] MEDS: FLUoxetine HCl 10 MG CAPSULE PO (09:02)
[2024-02-28] MEDS: Memantine HCl 10 MG TABLET PO ×2 (09:02→21:32)
[2024-02-28] MEDS: Folic Acid 1 MG TABLET PO (09:02)
[2024-02-28 09:10] VITALS: BP 117/63; PULSE 71; RESP 18; TEMP 36.4; O2SAT 95
--- NOTE | 2024-02-28 19:27 | HO.PSYCHPN ---
Subjective Subjective Date of Service: 02/28/24 Reason For Visit: Alzheimers Disease Interim History: Pt slept through the night. He denies physical concerns. visible on the unit. He had visit from daughter. No behavioral concerns. No SI/HI. Review of Systems Review of Systems nothing acute Yes all other systems are reviewed and are negative Mental Status Exam Mental Status Exam Patient Appearance: Well Grooomed and Appropriate Patient Orientation: Person and Place Level of Consciousness: Awake and Appropriate Patient Behavior: Appropriate, Cooperative and Good Eye Contact Mood Description: Calm Affect Description: Calm Patient Cognition Impaired: Yes Ability to Follow Directions: Fair Speech Pattern: Clear Memory Description: Normal for Patient (Impaired at baseline) Diagnostics Vital Signs (24Hr): Vital Signs - 24 hr 02/27/24 20:00 02/28/24 09:10 Temperature 98.0 F 97.5 F Pulse Rate 69 71 Respiratory Rate 16 18 Blood Pressure 109/58 L 117/63 Pulse Oximetry 96 95 Oxygen Delivery Method Room Air Room Air BMI result Body Mass Index 19.1 Labs 01/02/24 07:18 Labs: Laboratory Results - last 48 hr 02/27/24 Unknown Urine Color Yellow Urine Appearance Clear Urine pH 6.0 Ur Specific [place] 1.015 Urine Protein Negative Urine Glucose (UA) Negative Urine Ketones Negative Urine Blood Negative Urine Nitrite Negative Ur Leukocyte Esterase Negative Imaging Radiology Impressions: ITS Impressions Scrotum Ultrasound 02/27/24 10:17 IMPRESSION: 1. Bilateral testicular vascular flow identified. 2. 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 3. Right epididymal head is enlarged secondary to a 5.9 x 4.1 x 4.2 cm cyst with septation and potential debris. 4. Multiple left epididymal cysts the largest measuring up to 2.9 cm. Medications Medications Current Medications Acetaminophen (Acetaminophen 325 Mg Tablet) 650 mg PO Q6H PRN PRN Reason: Headache/Pain Mild Scale (1-3) Al Hydroxide/Mg Hydroxide (Magnesium Hydrox/Alum Hydrox 30 Ml Oral.Susp) 30 ml PO Q6H PRN PRN Reason: Heartburn/Nausea Divalproex Sodium (Divalproex Sodium Sprinkles 125 Mg ) 250 mg PO BID [facility] Last Admin: 02/28/24 09:02 Dose: 250 mg Donepezil HCl (Donepezil Hcl 10 Mg Tablet) 10 mg PO BEDTIME [facility] Last Admin: 02/27/24 20:11 Dose: 10 mg Fluoxetine HCl (Fluoxetine Hcl 10 Mg Capsule) 10 mg PO DAILY [facility] Last Admin: 02/28/24 09:02 Dose: 10 mg Folic Acid (Folic Acid 1 Mg Tablet) 1 mg PO DAILY [facility] Last Admin: 02/28/24 09:02 Dose: 1 mg Magnesium Hydroxide (Milk Of Magnesia 30 Ml Oral.Susp) 30 ml PO DAILY PRN PRN Reason: Constipation Memantine (Memantine Hcl 10 Mg Tablet) 10 mg PO BID [facility] Last Admin: 02/28/24 09:02 Dose: 10 mg Olanzapine (Olanzapine 2.5 Mg Tablet) 2.5 mg PO TID PRN PRN Reason: agitation Last Admin: 02/14/24 23:28 Dose: 2.5 mg Trazodone HCl (Trazodone Hcl 25 Mg Halftab) 25 mg PO BEDTIME MRX1 PRN PRN Reason: Insomnia Last Admin: 02/27/24 20:11 Dose: 25 mg Allergies Allergies Allergy/AdvReac Type Severity Reaction Status Date / Time No Known Allergies Allergy Verified 01/26/24 13:17 Assessment & Plan Assessment & Plan (1) Dementia: Status: Acute Code(s): F03.90 - Unspecified dementia, unspecified severity, without behavioral disturbance, psychotic disturbance, mood disturbance, and anxiety Plan There is a documented history of dementia and transfer paperwork. Unclear past psychiatric history in terms of admissions, medications, safety, behaviors etc.. Coating And Embossing Unit Operator left message for his son with plan to invoke healthcare proxy as patient has clear cognitive impairment (due to dementia), does not understand conditional voluntary details, treatment recommendations etc.. Is not objecting to admission and defers to son (is HCP). Left VM for HCP to invoke same and complete CV. No response. While awaiting same, will complete S12, with view to invoking HCP and completing CV with HCP. 01/08 Mostly isolative, in his bed . He says he is okay but difficult with which to engage, giving one-word answers. Alert to self and location 01/09 No change in presentation. Patient again says he is okay. Today oriented to self but not location, however did know the day of the week 02/23 patient transferred to from the geriatric unit since he was having inappropriate and unsolicited/unwanted sexualized behavior towards female peer on the geriatric unit, unable to be redirected 02/24 patient has been in good behavioral and impulse control on M5, casually social with peers. No complaints and no request. -continue current treatment plan 02/25 Patient reports that overall he is doing good however he reports right testicular discomfort and thinks he may have a cyst; he did make a reference to the fact that currently he is not sexually active. Coating And Embossing Unit Operator agreed to put in consult. Otherwise patient reports he is eating and sleeping well. -at this time patient has not been sexually inappropriate with peers; would consider possibly adding Prozac if this becomes an issue -consult placed for testicular complaint 02/27 continue tx. Plan Healthcare proxy invoked Q 15 minute checks Aricept 10 mg q.h.s. Namenda 10 mg b.i.d. Depakote 250 mg b.i.d. waiting for placement. Reason for continued inpatient stay Substantial Risk for: inability to function Time Spent With Patient Time: Total time managing care of this patient today ____ minutes.
[2024-02-28] MEDS: Donepezil HCl 10 MG TABLET PO (21:32)
[2024-02-28] MEDS: traZODone HCL 25 MG HALFTAB PO (21:32)
[2024-02-28 22:07] VITALS: BP 120/67; PULSE 78; RESP 16; TEMP 36.8; O2SAT 97
[2024-02-29 00:41] LABS: CT PCR NOT DETECTED (Not Detect.); NG PCR NOT DETECTED (Not Detect.)
[2024-02-29 08:00] VITALS: BP 96/59; PULSE 84; TEMP 36.4; O2SAT 97
[2024-02-29] MEDS: Folic Acid 1 MG TABLET PO (08:34)
[2024-02-29] MEDS: Divalproex Sodium Sprinkles 125 MG CAP.DR.SPR 250 MG PO ×2 (08:34→19:39)
[2024-02-29] MEDS: FLUoxetine HCl 10 MG CAPSULE PO (08:34)
[2024-02-29] MEDS: Memantine HCl 10 MG TABLET PO ×2 (08:34→19:40)
--- NOTE | 2024-02-29 15:04 | P.PNPSI_ITS ---
Subjective Subjective Date of Service: 02/29/24 Reason For Visit: Alzheimers Disease Interim History: Pt with visitors early this afternoon. Met with pt later in the day. Reports he is well, comfortable, I have a good room-mate and appetite is good. Discussed that he will be here for a long while. Would like to leave and get outside however states he knows he needs to follow a treatment plan, for a better future. Describes intermittent vertigo, however denies this sx this afternoon. Denies med SE. States he is enjoying talking with peers on the unit. Talked about living in [place] and moving to the [facility] in the . Medication Compliance: Yes Side effects from medications: No Attending Groups: Yes Review of Systems Acute medical concerns: No Medical Review of Systems: unchanged Review of Systems Review of Systems Denies Mental Status Exam Mental Status Exam Patient Appearance: Appropriate Patient Orientation: Person, Place, Time and Situation Level of Consciousness: Alert Patient Behavior: Talkative and Good Eye Contact Mood Description: Constricted Affect Description: Constricted Patient Cognition Impaired: Yes Ability to Follow Directions: Good Speech Pattern: Spontaneous Speech Memory Description: Remote Impaired Hallucinations: None Delusions: Not Present Thought Process: Rumination Thought Content: positive for Perseveration Judgement: Poor Diagnostics Vital Signs (24Hr): Vital Signs - 24 hr 02/28/24 22:07 02/29/24 08:00 Temperature 98.2 F 97.6 F Pulse Rate 78 84 Respiratory Rate 16 Blood Pressure 120/67 96/59 L Pulse Oximetry 97 97 Oxygen Delivery Method Room Air Room Air BMI result Body Mass Index 19.1 Labs 01/02/24 07:18 Labs: Laboratory Results - last 48 hr 02/28/24 20:25 Chlam trachomat DNA PCR NOT DETECTED N.gonorrhoeae DNA (PCR) NOT DETECTED Imaging Radiology Impressions: ITS Impressions Scrotum Ultrasound 02/27/24 10:17 IMPRESSION: 1. Bilateral testicular vascular flow identified. 2. 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 3. Right epididymal head is enlarged secondary to a 5.9 x 4.1 x 4.2 cm cyst with septation and potential debris. 4. Multiple left epididymal cysts the largest measuring up to 2.9 cm. Medications Medications Current Medications Acetaminophen (Acetaminophen 325 Mg Tablet) 650 mg PO Q6H PRN PRN Reason: Headache/Pain Mild Scale (1-3) Al Hydroxide/Mg Hydroxide (Magnesium Hydrox/Alum Hydrox 30 Ml Oral.Susp) 30 ml PO Q6H PRN PRN Reason: Heartburn/Nausea Divalproex Sodium (Divalproex Sodium Sprinkles 125 Mg ) 250 mg PO BID [facility] Last Admin: 02/29/24 08:34 Dose: 250 mg Donepezil HCl (Donepezil Hcl 10 Mg Tablet) 10 mg PO BEDTIME [facility] Last Admin: 02/28/24 21:32 Dose: 10 mg Fluoxetine HCl (Fluoxetine Hcl 10 Mg Capsule) 10 mg PO DAILY [facility] Last Admin: 02/29/24 08:34 Dose: 10 mg Folic Acid (Folic Acid 1 Mg Tablet) 1 mg PO DAILY [facility] Last Admin: 02/29/24 08:34 Dose: 1 mg Magnesium Hydroxide (Milk Of Magnesia 30 Ml Oral.Susp) 30 ml PO DAILY PRN PRN Reason: Constipation Memantine (Memantine Hcl 10 Mg Tablet) 10 mg PO BID [facility] Last Admin: 02/29/24 08:34 Dose: 10 mg Olanzapine (Olanzapine 2.5 Mg Tablet) 2.5 mg PO TID PRN PRN Reason: agitation Last Admin: 02/14/24 23:28 Dose: 2.5 mg Trazodone HCl (Trazodone Hcl 25 Mg Halftab) 25 mg PO BEDTIME MRX1 PRN PRN Reason: Insomnia Last Admin: 02/28/24 21:32 Dose: 25 mg Allergies Allergies Allergy/AdvReac Type Severity Reaction Status Date / Time No Known Allergies Allergy Verified 01/26/24 13:17 Assessment & Plan Assessment & Plan (1) Dementia: Status: Acute Code(s): F03.90 - Unspecified dementia, unspecified severity, without behavioral disturbance, psychotic disturbance, mood disturbance, and anxiety Plan There is a documented history of dementia and transfer paperwork. Unclear past psychiatric history in terms of admissions, medications, safety, behaviors etc.. Team Facilitator left message for his son with plan to invoke healthcare proxy as patient has clear cognitive impairment (due to dementia), does not understand conditional voluntary details, treatment recommendations etc.. Is not objecting to admission and defers to son (is HCP). Left VM for HCP to invoke same and complete CV. No response. While awaiting same, will complete S12, with view to invoking HCP and completing CV with HCP. 01/08 Mostly isolative, in his bed . He says he is okay but difficult with which to engage, giving one-word answers. Alert to self and location 01/09 No change in presentation. Patient again says he is okay. Today oriented to self but not location, however did know the day of the week 02/23 patient transferred to from the geriatric unit since he was having inappropriate and unsolicited/unwanted sexualized behavior towards female peer on the geriatric unit, unable to be redirected 02/24 patient has been in good behavioral and impulse control on , casually social with peers. No complaints and no request. -continue current treatment plan 02/25 Patient reports that overall he is doing good however he reports right testicular discomfort and thinks he may have a cyst; he did make a reference to the fact that currently he is not sexually active. Team Facilitator agreed to put in consult. Otherwise patient reports he is eating and sleeping well. -at this time patient has not been sexually inappropriate with peers; would consider possibly adding Prozac if this becomes an issue -consult placed for testicular complaint 02/27 continue tx. 02/28 continue tx. Plan Healthcare proxy invoked Q 15 minute checks Aricept 10 mg q.h.s. Namenda 10 mg b.i.d. Depakote 250 mg b.i.d. waiting for placement. Reason for continued inpatient stay Substantial Risk for: rapid decompensation Time Spent With Patient Time: Total time managing care of this patient today ____ minutes.
[2024-02-29] MEDS: traZODone HCL 25 MG HALFTAB PO (19:40)
[2024-02-29] MEDS: Donepezil HCl 10 MG TABLET PO (19:40)
[2024-02-29 19:53] VITALS: BP 114/59; PULSE 80; RESP 16; TEMP 37.3; O2SAT 95
--- NOTE | 2024-03-01 | ECG_ITS ---
Test Reason : dizzy Blood Pressure : / mmHG Vent. Rate : 094 BPM Atrial Rate : 094 BPM P-R Int : 138 ms QRS Dur : 068 ms QT Int : 354 ms P-R-T Axes : 073 -27 062 degrees QTc Int : 442 ms Normal sinus rhythm Premature atrial complexes Abnormal ECG No previous ECGs available Referred By: Valente Newman Electronically Signed By:EMILY CARLISLE
[2024-03-01 07:55] VITALS: BP 105/52; PULSE 80; RESP 16; TEMP 36.9; O2SAT 93
[2024-03-01] MEDS: Memantine HCl 10 MG TABLET PO (08:22)
[2024-03-01] MEDS: Divalproex Sodium Sprinkles 125 MG CAP.DR.SPR 250 MG PO (08:22)
[2024-03-01] MEDS: FLUoxetine HCl 10 MG CAPSULE PO (08:22)
[2024-03-01] MEDS: Folic Acid 1 MG TABLET PO (08:22)
[2024-03-01 08:24] VITALS: BP 103/58
--- NOTE | 2024-03-01 09:49 | P.PNPSI_ITS ---
Subjective Subjective Date of Service: 03/01/24 Reason For Visit: Alzheimers Disease Interim History: met with patient; discussed with team pt reports he's in good mood; no complaints; eating and sleeping well. Discussed going back on Prozac which was started last week and to which he agrees; also agrees with getting off depakote. writer technical publications discussed case with Dr. Altman and later with pt's HCP Olga. Occupational Therapist Home Based explained why pt was intially not restarted on prozac (was not taking at home); Olga said it helped w/ sexual inappropriateness and thought increasing dose to 60mg (was at 40mg) might help. She also had resverations regarding doneprizil, nemenda since pt's outpt providers thought it would have little benefit; she agreed for it to remain given no side-effects adn possible benefit. Diagnostics Vital Signs (24Hr): Vital Signs - 24 hr 02/29/24 19:53 03/01/24 07:55 03/01/24 08:24 Temperature 99.2 F 98.4 F Pulse Rate 80 80 Respiratory Rate 16 16 Blood Pressure 114/59 L 105/52 L 103/58 L Pulse Oximetry 95 93 Oxygen Delivery Method Room Air Room Air BMI result Body Mass Index 19.1 Labs 03/01/24 19:06 03/01/24 18:19 Labs: Laboratory Results - last 48 hr 02/28/24 20:25 Chlam trachomat DNA PCR NOT DETECTED N.gonorrhoeae DNA (PCR) NOT DETECTED Imaging Radiology Impressions: ITS Impressions Scrotum Ultrasound 02/27/24 10:17 IMPRESSION: 1. Bilateral testicular vascular flow identified. 2. 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 3. Right epididymal head is enlarged secondary to a 5.9 x 4.1 x 4.2 cm cyst with septation and potential debris. 4. Multiple left epididymal cysts the largest measuring up to 2.9 cm. Medications Medications Current Medications Acetaminophen (Acetaminophen 325 Mg Tablet) 650 mg PO Q6H PRN PRN Reason: Headache/Pain Mild Scale (1-3) Al Hydroxide/Mg Hydroxide (Magnesium Hydrox/Alum Hydrox 30 Ml Oral.Susp) 30 ml PO Q6H PRN PRN Reason: Heartburn/Nausea Divalproex Sodium (Divalproex Sodium Sprinkles 125 Mg ) 250 mg PO BID [facility] Last Admin: 03/01/24 08:22 Dose: 250 mg Donepezil HCl (Donepezil Hcl 10 Mg Tablet) 10 mg PO BEDTIME [facility] Last Admin: 02/29/24 19:40 Dose: 10 mg Fluoxetine HCl (Fluoxetine Hcl 10 Mg Capsule) 10 mg PO DAILY [facility] Last Admin: 03/01/24 08:22 Dose: 10 mg Folic Acid (Folic Acid 1 Mg Tablet) 1 mg PO DAILY [facility] Last Admin: 03/01/24 08:22 Dose: 1 mg Magnesium Hydroxide (Milk Of Magnesia 30 Ml Oral.Susp) 30 ml PO DAILY PRN PRN Reason: Constipation Memantine (Memantine Hcl 10 Mg Tablet) 10 mg PO BID [facility] Last Admin: 03/01/24 08:22 Dose: 10 mg Olanzapine (Olanzapine 2.5 Mg Tablet) 2.5 mg PO TID PRN PRN Reason: agitation Last Admin: 02/14/24 23:28 Dose: 2.5 mg Trazodone HCl (Trazodone Hcl 25 Mg Halftab) 25 mg PO BEDTIME MRX1 PRN PRN Reason: Insomnia Last Admin: 02/29/24 19:40 Dose: 25 mg Allergies Allergies Allergy/AdvReac Type Severity Reaction Status Date / Time No Known Allergies Allergy Verified 01/26/24 13:17 Assessment & Plan Assessment & Plan (1) Dementia: Status: Acute Code(s): F03.90 - Unspecified dementia, unspecified severity, without behavioral disturbance, psychotic disturbance, mood disturbance, and anxiety Plan There is a documented history of dementia and transfer paperwork. Unclear past psychiatric history in terms of admissions, medications, safety, behaviors etc.. Occupational Therapist Home Based left message for his son with plan to invoke healthcare proxy as patient has clear cognitive impairment (due to dementia), does not understand conditional voluntary details, treatment recommendations etc.. Is not objecting to admission and defers to son (is HCP). Left VM for HCP to invoke same and complete CV. No response. While awaiting same, will complete S12, with view to invoking HCP and completing CV with HCP. 01/08 Mostly isolative, in his bed . He says he is okay but difficult with which to engage, giving one-word answers. Alert to self and location 01/09 No change in presentation. Patient again says he is okay. Today oriented to self but not location, however did know the day of the week 02/23 patient transferred to M5 from the geriatric unit since he was having inappropriate and unsolicited/unwanted sexualized behavior towards female peer on the geriatric unit, unable to be redirected 02/24 patient has been in good behavioral and impulse control on M5, casually social with peers. No complaints and no request. -continue current treatment plan 02/25 Patient reports that overall he is doing good however he reports right testicular discomfort and thinks he may have a cyst; he did make a reference to the fact that currently he is not sexually active. Occupational Therapist Home Based agreed to put in consult. Otherwise patient reports he is eating and sleeping well. -at this time patient has not been sexually inappropriate with peers; would consider possibly adding Prozac if this becomes an issue -consult placed for testicular complaint 02/27 continue tx. 02/28 continue tx. 03/01 over weekend, remains w/ some sexually innappropriate behavior, simulating masturbation during group, though was redirectable. -pt reports he's in good mood; no complaints; eating and sleeping well. Discussed going back on Prozac which was started last week and to which he agrees; also agrees with getting off depakote. writer technical publications discussed case with Dr. Altman and later with pt's HCP Olga. Occupational Therapist Home Based explained why pt was intially not restarted on prozac (was not taking at home); Olga said it helped w/ sexual inappropriateness and thought increasing dose to 60mg (was at 40mg) might help. She also had resverations regarding doneprizil, nemenda since pt's outpt providers thought it would have little benefit; she agreed for it to remain given no side-effects adn possible benefit. Plan Healthcare proxy invoked Q 15 minute checks Aricept 10 mg q.h.s. Namenda 10 mg b.i.d. Depakote 250 mg b.i.d. waiting for placement. Patient educated on: diagnosis and medication risk/benefits Guardian/Caregiver educated on: diagnosis and medication risk/benefits Informed Consent: understands, does not understand and further education needed Reason for continued inpatient stay Substantial Risk for: inability to function Time Spent With Patient Time: Total time managing care of this patient today ____ minutes.
[2024-03-01 17:46] VITALS: BP 119/60; PULSE 90; RESP 16; TEMP 38.3; O2SAT 99
[2024-03-01 17:47] VITALS: BP 122/56; PULSE 90; O2SAT 96
[2024-03-01 17:48] VITALS: BP 113/56; PULSE 104; O2SAT 96
[2024-03-01 19:05] LABS: Influenza A PCR NEGATIVE (Negative); Influenza B PCR NEGATIVE (Negative); Resp Syncy Virus RNA Qual PCR NEGATIVE (Negative); SARS COV2 PCR INHOUSE NEGATIVE (Negative)
[2024-03-01 19:11] LABS: Alanine Aminotransferase 16 U/L (0-40); Albumin Level 3.6 g/dL (3.5-5.0); Alkaline Phosphatase 61 U/L (39-117); Anion Gap 12 (12-20); Aspartate Amino Transferase 15 U/L (5-37); Bilirubin Total 0.5 mg/dL (0.0-1.0); Blood Urea Nitrogen 30 mg/dL (9-16); Calcium 8.7 mg/dL (8.4-10.2); Carbon Dioxide 29 mmol/L (22-29); Chloride 104 mmol/L (96-108); Estimated Glomerular Filt Rate > 60; Glucose Random 135 mg/dL (60-115); Potassium 4.4 mmol/L (3.3-5.1); Sodium 141 mmol/L (135-145); Total Protein 6.7 g/dL (6.5-8.0)
[2024-03-01 19:18] LABS: MANUAL DIFF FLAG NO
[2024-03-01 19:22] LABS: Basophils Percent Auto 0.3 % (0-2); Eosinophils Percent Auto 0.1 % (0-4); Hemoglobin 13.2 g/dl (14.0-18.0); Imm Gran Abs Auto 0.08 X10*3/uL (0.00-0.03); Imm Gran Pct Auto 0.5 % (0.0-0.4); Lymphocytes Absolute Auto 1.2 X10*3/uL (1.2-4.9); Lymphocytes Percent Auto 8.2 % (20-40); Mean Corpuscular HGB Conc 33.8 g/dl (31.0-36.0); Mean Corpuscular Volume 94.7 fL (80.0-98.0); Mean Platelet Volume 10.7 fL (9.4-12.4); Monocytes Absolute Auto 1.3 X10*3/uL (0.1-1.2); Monocytes Percent Auto 8.6 % (2-11); Neutrophils Absolute Auto 12.4 x10*3/uL (2.0-8.3); Neutrophils Percent Auto 82.3 % (45-73); Platelet Count 224 X10*3/uL (160-400); Red Blood Count 4.12 X10*6/uL (4.60-5.80); Red Cell Distribution Width 14.9 % (11.0-16.0)
[2024-03-01 19:27] LABS: Glucose, Whole Blood 118 mg/dL (60-115)
--- NOTE | 2024-03-01 19:32 | P.EN_ITS ---
Event Note Date of Service: 03/01/24 Event Note: CUSTOMER ACQUISITION MANAGER Stroke alert called due to dizziness and lethargy noted this afternoon. However about 30 minutes ago, RN found patient in the bathroom confused from baseline, pants around his ankles. On arrival, patient oriented to self and place, new his age. Denies any complaints. He was sitting up in bed in no acute distress. Neuro exam revealed CN II-XII intact. Symmetric strength. Regular heart rhythm but tachycardic. Lungs clear to auscultation. Abdomen soft and nontender. Head CT given symptoms. No focal deficits, low suspicion for CVA at this time. Pt noted to be febrile to 101, tachcardic with WBC 15. Suspicion for infection. Patient meeting sepsis criteria. Lactic acid and blood cultures ordered. We will also check cxr and ua/uc. Given us scrotum on 02/26 revealed large 5.9 x 4.1 x 4.2 cm epididymal cyst, will repeat u/s now to check for any acute epididymitis. Urinalysis and gonorrhea/chlamydia PCR were negative at time of prior examination. Patient will be transferred to [facility] for further evaluation and management of acute encephalopathy thought to be secondary to infectious process. Time Spent With Patient Time: Total time managing care of this patient today ____ minutes.
--- NOTE | 2024-03-01 20:04 | PM.PSYDC ---
DS: Providers Provider Date of Service: 03/01/24 Date of admission: 01/01/24 20:26 Date of discharge: 03/01/24 Primary care physician: COLTON STONER MD Attending physician on admission: Michi Altman Consults: 01/01/24 21:46 Consult to Hospitalist Routine Comment: Consulting Provider: Hospitalist Reason For Exam: admission physical 02/26/24 08:47 Consult to Hospitalist Routine Comment: Consulting Provider: Hospitalist Reason For Exam: c/o right testicular pain/cyst Attending physician on discharge: Valente Newman DS: Diagnosis Discharge Diagnosis (1) Dementia: Status: Acute DS: Medications Discharge Medications Home Medications: Home Medications ?Medication ?Instructions ?Recorded ?Confirmed fluoxetine 40 mg PO DAILY 01/01/24 01/01/24 folic acid 1 mg PO DAILY 01/01/24 01/01/24 melatonin 3 mg PO BEDTIME 01/01/24 01/01/24 Mental Status Exam Mental Status Exam Patient Appearance: Well Grooomed and Appropriate Patient Orientation: Person and Place Level of Consciousness: Awake and Appropriate Patient Behavior: Appropriate, Cooperative and Good Eye Contact Mood Description: Calm Affect Description: Calm Patient Cognition Impaired: Yes Ability to Follow Directions: Fair Speech Pattern: Clear Memory Description: Normal for Patient (Impaired at baseline) Hallucinations: None Delusions: Not Present Thought Process: Goal Oriented and Slowed Thinking Thought Content: positive for [place], positive for Circumstantial and positive for Poverty of Content Judgement: Poor Judgement and Insight: Impaired Data Data Completed and Pending Completed studies during hospitalization [Text1]: 02/27/24 02/28/24 03/01/24 Unknown 20:25 18:19 WBC RBC Hgb Hct MCV MCH MCHC RDW Plt Count MPV Immature Gran % (Auto) Neut % (Auto) Lymph % (Auto) Nobles % (Auto) Eos % (Auto) Baso % (Auto) Lymph # (Auto) [place] # (Auto) Eos # (Auto) Baso # (Auto) Abs Immat Gran (auto) Absolute Neuts (auto) Absolute Nucleated RBC Nucleated RBC % (auto) Sodium 141 Potassium 4.4 Chloride 104 Carbon Dioxide 29 Anion Gap 12 BUN 30 H Creatinine 1.12 Estim Creat Clear Calc 47.0 Estimated GFR > 60 POC Glucose Random Glucose 135 H Calcium 8.7 Total Bilirubin 0.5 AST 15 ALT 16 Alkaline Phosphatase 61 Total Protein 6.7 Albumin 3.6 Urine Color Yellow Urine Appearance Clear Urine pH 6.0 Ur Specific [place] 1.015 Urine Protein Negative Urine Glucose (UA) Negative Urine Ketones Negative Urine Blood Negative Urine Nitrite Negative Ur Leukocyte Esterase Negative Chlam trachomat DNA PCR NOT DETECTED Influenza Type A (PCR) Influenza Type B (PCR) N.gonorrhoeae DNA (PCR) NOT DETECTED RSV RNA Qual (PCR) SARS-CoV-2 RNA (RT-PCR) 03/01/24 03/01/24 03/01/24 19:06 19:21 Unknown WBC 15.0 H RBC 4.12 L Hgb 13.2 L Hct 39.0 L MCV 94.7 MCH 32.0 MCHC 33.8 RDW 14.9 Plt Count 224 MPV 10.7 Immature Gran % (Auto) 0.5 H Neut % (Auto) 82.3 H Lymph % (Auto) 8.2 L Nobles % (Auto) 8.6 Eos % (Auto) 0.1 Baso % (Auto) 0.3 Lymph # (Auto) 1.2 Nobles # (Auto) 1.3 H Eos # (Auto) 0.0 Baso # (Auto) 0.0 Abs Immat Gran (auto) 0.08 H Absolute Neuts (auto) 12.4 H Absolute Nucleated RBC 0.000 Nucleated RBC % (auto) 0.0 Sodium Potassium Chloride Carbon Dioxide Anion Gap BUN Creatinine Estim Creat Clear Calc Estimated GFR POC Glucose 118 H Random Glucose Calcium Total Bilirubin AST ALT Alkaline Phosphatase Total Protein Albumin Urine Color Urine Appearance Urine pH Ur Specific [place] Urine Protein Urine Glucose (UA) Urine Ketones Urine Blood Urine Nitrite Ur Leukocyte Esterase Chlam trachomat DNA PCR Influenza Type A (PCR) NEGATIVE Influenza Type B (PCR) NEGATIVE N.gonorrhoeae DNA (PCR) RSV RNA Qual (PCR) NEGATIVE SARS-CoV-2 RNA (RT-PCR) NEGATIVE Imaging Diagnostic Imaging Impressions Scrotum Ultrasound 02/27/24 10:17 IMPRESSION: 1. Bilateral testicular vascular flow identified. 2. 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 3. Right epididymal head is enlarged secondary to a 5.9 x 4.1 x 4.2 cm cyst with septation and potential debris. 4. Multiple left epididymal cysts the largest measuring up to 2.[address] 03/01/24 19:35 IMPRESSION: Unremarkable examination in that there is no evidence of acute territorial infarct or hemorrhage. There is asymmetric loss of parenchymal volume within the left anterior temporal lobe resulting in ex vacuo enlargement of the left anterior temporal lobe. Findings may represent chronic changes of encephalitis or ischemia. Comparison with prior imaging is recommended if available. Otherwise follow-up imaging can be undertaken to assess stability. Alternatively a brain MRI can be obtained for better anatomic characterization of the intracranial anatomy. This critical result was discussed with Dr Ponce at 7:50 PM on 03/01/2024 and it was ascertained that the content and urgency of the report was understood at the time of direct communication. DS: Summary Hospital Course Hospital Course: There is a documented history of dementia and transfer paperwork. Unclear past psychiatric history in terms of admissions, medications, safety, behaviors etc.. Legal Contracts Specialist left message for his son with plan to invoke healthcare proxy as patient has clear cognitive impairment (due to dementia), does not understand conditional voluntary details, treatment recommendations etc.. Is not objecting to admission and defers to son (is HCP). Left VM for HCP to invoke same and complete CV. No response. While awaiting same, will complete S12, with view to invoking HCP and completing CV with HCP. 01/08 Mostly isolative, in his bed . He says he is okay but difficult with which to engage, giving one-word answers. Alert to self and location 01/09 No change in presentation. Patient again says he is okay. Today oriented to self but not location, however did know the day of the week 02/23 patient transferred to from the geriatric unit since he was having inappropriate and unsolicited/unwanted sexualized behavior towards female peer on the geriatric unit, unable to be redirected 02/24 patient has been in good behavioral and impulse control on , casually social with peers. No complaints and no request. -continue current treatment plan 02/25 Patient reports that overall he is doing good however he reports right testicular discomfort and thinks he may have a cyst; he did make a reference to the fact that currently he is not sexually active. Legal Contracts Specialist agreed to put in consult. Otherwise patient reports he is eating and sleeping well. -at this time patient has not been sexually inappropriate with peers; would consider possibly adding Prozac if this becomes an issue -consult placed for testicular complaint 02/27 continue tx. 02/28 continue tx. 03/01 over weekend, remains w/ some sexually innappropriate behavior, simulating masturbation during group, though was redirectable. -pt reports he's in good mood; no complaints; eating and sleeping well. Discussed going back on Prozac which was started last week and to which he agrees; also agrees with getting off depakote. headline writer discussed case with Dr. Altman and later with pt's HCP Olga. Legal Contracts Specialist explained why pt was intially not restarted on prozac (was not taking at home); Olga said it helped w/ sexual inappropriateness and thought increasing dose to 60mg (was at 40mg) might help. She also had resverations regarding doneprizil, nemenda since pt's outpt providers thought it would have little benefit; she agreed for it to remain given no side-effects and possible benefit. Time spent discussing smoking cessation with patient: 3 to 10 minutes Status at Discharge Functional status at discharge: independent ambulation Time Spent with Patient Time attestation: Total time managing care of this patient today ____ minutes. Time spent: Less than 30 minutes Discharge Plan Discharge Anticipated Discharge Date/Time: 03/01/24 19:58 Patient Disposition: er Acute Care Hospital Discharge Diagnosis: Dementia Referrals: Colton Stoner MD [Primary Care Provider] - 1 Week Discharge Medications: Continued folic acid 1 mg PO DAILY fluoxetine 40 mg PO DAILY melatonin 3 mg PO BEDTIME Discharge Orders: Discharge Order (Routine); Ordered 03/01/24 Ordered By: Valente Newman Diet: defer Activity on Discharge: As tolerated Stand Alone Forms: Patient Portal Discharge page Print Language: Luxembourger Care Plan Goals: transfer to medical floor Health Concerns: transfer to medical floor Plan of Treatment: transfer to medical floor Assessment: transfer to medical floor Discharge Date/Time: 03/01/24 20:07
== END 2024-03-01 20:07 | disposition short-term general hospital (02) | DRG 57 ==
LOC: HO.PGERI 02-16 12:19 → HO.PM5 02-24 13:24
PROVIDERS: Physician Assistant; Admitting Provider Psychiatry & Neurology Psychiatry; PCP Family Medicine; Visit Provider Psychiatry & Neurology Psychiatry
DX: G30.9 Alzheimer's disease, unspecified (principal); F02.818 Dementia in other diseases classified elsewhere, unspecified severity, with other behavioral disturbance; G93.49 Other encephalopathy; Z75.1 Person awaiting admission to adequate facility elsewhere; N50.3 Cyst of epididymis; Z20.822 Contact with and (suspected) exposure to COVID-19; Z79.899 Other long term (current) drug therapy
CPT/HCPCS: 0241U; 0353U; 36415; 70450; 71045; 76870; 80053; 80061; 80164; 81003; 82947; 83036; 85025; 93005

== ENCOUNTER → 2024-01-01 20:26 | Outpatient (BNV) | payer MEDICARE, MEDICAID, SELFPAY | PROVIDERS: Admitting Provider Psychiatry & Neurology Psychiatry; PCP Family Medicine; Visit Provider Psychiatry & Neurology Psychiatry | DX: F03.90 Unspecified dementia, unspecified severity, without behavioral disturbance, psychotic disturbance, mood disturbance, and anxiety (principal) | CPT/HCPCS: 90792; 99231; 99232; 99238; 99499 ==

== ENCOUNTER → 2024-01-01 20:26 | Outpatient (BNV) | payer MEDICARE, MEDICAID, SELFPAY | PROVIDERS: Admitting Provider Psychiatry & Neurology Psychiatry; PCP Family Medicine; Visit Provider Student in an Organized Health Care Education/Training Program | DX: Z02.2 Encounter for examination for admission to residential institution (principal) | CPT/HCPCS: 99429; 99499 ==

== ENCOUNTER → 2024-01-01 20:26 | Outpatient (BNV) | payer MEDICARE, MEDICAID, SELFPAY | PROVIDERS: Admitting Provider Psychiatry & Neurology Psychiatry; PCP Family Medicine; Visit Provider Psychiatry & Neurology Psychiatry | DX: G30.9 Alzheimer's disease, unspecified (principal); F02.80 Dementia in other diseases classified elsewhere, unspecified severity, without behavioral disturbance, psychotic disturbance, mood disturbance, and anxiety | CPT/HCPCS: 99231 ==

== ENCOUNTER 2024-03-01 20:19 | Outpatient (BNV) | payer MEDICARE, MEDICAID, SELFPAY | END 2024-03-02 20:31 | PROVIDERS: Admitting Provider Internal Medicine; PCP Family Medicine; Visit Provider Internal Medicine | DX: R42 Dizziness and giddiness (principal); I49.2 Junctional premature depolarization; R94.31 Abnormal electrocardiogram [ECG] [EKG] | CPT/HCPCS: 93010 ==

== ENCOUNTER 2024-03-01 20:19 | Inpatient (IN) | payer MEDICARE, MEDICAID, SELFPAY ==
--- NOTE | 2024-03-01 20:32 | P.HPHOSP_ITS ---
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 Per nursing report, the patient was reporting dizziness earlier this afternoon and has been in bed most of the day. Rapid response was called around 730 this evening as patient was found confused in the bathroom with his pants around his ankles which is atypical for the patient. He was requiring frequent prompting and cues to perform tasks. Stroke alert was called given concerns. Head CT was ordered which was negative for any acute intracranial abnormality. There are no focal nerve neuro deficits noted on exam so further imaging was not pursued as patient was also febrile to 100.1, tachycardic with elevated white blood cell count of 15. Chest x-ray performed on the unit with final radiology read pending but does appear to have right lower lobe infiltrate, question possible aspiration. Per unit staff, the patient has been sneezing and coughing. The patient himself has no complaints and was oriented to self and place on unit, sitting up in bed without any imbalance noted. Of note, he was also complaining of right scrotal/testicular discomfort 3 days ago and urinalysis was negative. Gonorrhea and chlamydia PCR was negative. Ultrasound of the scrotum revealed a 5 cm right-sided epididymal cyst largely obscuring visual of epididymis. He is being transferred to the medical floors for further evaluation and management of acute metabolic encephalopathy likely secondary to probable aspiration pneumonia with sepsis. Review of Systems Review of Systems: Yes all other systems are reviewed and are negative [facility] Medical History Dementia Social History Patient Tobacco Use Status: Refuse Tobacco use screen Advance Directives: No Advance Directives Information Provided: No service: Yes ([employer] Service) Sexual orientation: Straight/Heterosexual Meds Allergies Allergy/AdvReac Type Severity Reaction Status Date / Time No Known Allergies Allergy Verified 01/26/24 13:17 Active Medications: Current Medications Acetaminophen (Acetaminophen 325 Mg Tablet) 650 mg PO Q6H PRN PRN Reason: Pain, Mild (Pain Scale 1-3) Enoxaparin Sodium (Enoxaparin Sodium 40 Mg/0.4 Ml Syringe) 40 mg SUBCUT Q24H GRICELDA Piperacillin Sod/Tazobactam (Sod 4.5 gm/ Sodium Chloride) 100 mls @ 200 mls/hr IV Q6H GRICELDA Magnesium Hydroxide (Milk Of Magnesia 30 Ml Oral.Susp) 30 ml PO DAILY PRN PRN Reason: Constipation Ondansetron HCl (Ondansetron Hcl 4 Mg/2 Ml Vial) 4 mg IVPUSH Q8H PRN PRN Reason: Nausea and Vomiting Pharmacy Consult (Consult Rx Vancomycin Dosing) 1 each MISCELLANE DAILY PRN PRN Reason: Consult order Sodium Chloride (0.9 % Sodium Chloride Flush 3 Ml Syringe) 3 ml IVFLUSH QSHIFT [facility] Home Medications ?Medication ?Instructions ?Recorded ?Confirmed ?Last Taken ?Type fluoxetine 40 mg PO DAILY 01/01/24 01/01/24 Unknown History folic acid 1 mg PO DAILY 01/01/24 01/01/24 Unknown History melatonin 3 mg PO BEDTIME 01/01/24 01/01/24 Unknown History Physical Exam Vital Signs and Narrative: Constitutional - Awake and Alert, No apparent distress Eyes - PERRLA, EOMI Cardiovascular - S1S2, RRR, No edema Respiratory - Normal lung expansion, Normal respiratory effort, No respiratory distress, CTA bilaterally Gastrointestinal - NT / ND; +BS; No rebound or guarding Extremities - no calf tenderness bilaterally, no swelling Skin - Warm/Dry Neurological - Alert & oriented to self and place, following commands but limited historian, CN II-XII in tact no nystagmus, 5/5 strength BUE and BLE, no gait ataxia noted Assessment and Plan (1) Acute metabolic encephalopathy: Status: Acute (2) Pneumonia: Status: Acute Plan 79-year-old male with 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 Question aspiration? -leukocytosis of 15, tachycardic, febrile to 101. Lactic acid and blood cultures pending. Will order 1 L IV NS now -IV vancomycin and Zosyn (initiated 03/01) -strep pneumo antigen, Legionella antigen, sputum culture, and MRSA nasal swab pending -given concern for aspiration, keep NPO for now. PHARMACY SERVICES DIRECTOR evaluation pending -follow CBC, cultures # epididymal cyst -large 5 cm right-sided epididymal cyst obscuring visual of epididymis -given acute encephalopathy, will also rule out UTI -UA/UC ordered with straight cath if needed -urology consult # Alzheimer's dementia with behavioral disturbance -continue mood stabilizers/antipsychotics as recommended by psychiatry DVT prophylaxis-Lovenox Full code Patient requires inpatient stay at least 2 midnights for management of acute multifocal pneumonia with acute metabolic encephalopathy and sepsis and will require IV antibiotics, close monitoring of mentation as well as monitoring of hemodynamics to prevent decompensation. He will ultimately require care team consult and transfer back to M5 psychiatric unit once medically cleared Quality Stroke Does the patient have a stroke diagnosis?: No VTE Prior VTE?: No VTE Risk Level:: Medical - moderate - high VTE Device Contraindication: Treatment Not Indicated VTE Drug Contraindication: N/A - Med Ordered
--- OUTSIDE RECORDS SUMMARY | 2024-03-01 20:49 | XMS_ITS | Continuity of Care Document ---
Author Organization [facility] Medicine Address [address] [place] [address]- Care Team Providers Care Machinist Brake Name Role Phone Alexx Stoner MD Primary Care Physician [phone] [place] [facility] [place]23 - 01/07/[address] [id number] Allergies, Adverse Reactions, Alerts No Known Allergies Immunizations Given and Recorded Vaccine Date Status Refusal Reason influenza virus vaccine, inactivated 07/10/23 Give n influenza virus vaccine, inactivated 1 07/07/22 Gi mahsa influenza virus vaccine, inactivated 07/20/19 Give n SARS-CoV-2 (COVID-19) mRNA BNT-162b2 vac 01/10/21 Recorded SARS-CoV-2 (COVID-19) mRNA BNT-162b2 vac 12/20/20 Recorded pneumococcal 13-valent vaccine 07/20/19 Given 1Result Comment: 37577-817-27 Medications [facility] - [facility], Refills 0, Maintenance, 07/07/22 9:25:00 EDT, Supply Start Date: 07/07/22 Status: Ordered FLUoxetine 20 mg oral tablet 2 tablet = 40 mg, By Mouth, Daily, # 120 tablet, 3 Refills, Maintenance, 09/01/23 13:59:00 EST, Tablet, [id number], Partial fill upon patient request if the prescription is for a schedule II opioid drug., 173, cm, 08/10/23 13:47:00 EST... Start Date: 09/01/23 Status: Ordered folic acid 1 mg oral tablet 1 mg, By Mouth, Daily, # 30 tablet, Refills 0, Tot. Refills 0, Maintenance, 12/29/23 8:55:00 EDT, Do Not Route, Partial fill upon patient request if the prescription is for a schedule II opioid drug. Start Date: 12/29/23 Stop Date: 01/28/24 Status: Ordered Gum Guardian - [facility] Gum Guardian - [facility], Refills 0, Maintenance, 07/07/22 9:24:00 EDT, Supply Start Date: 07/07/22 Status: Ordered Rapid Immune Boost - [facility] Rapid Immune Boost - [facility], Refills 0, Maintenance, 07/07/22 9:25:00 EDT, Supply Start Date: 07/07/22 Status: Ordered thiamine 100 mg oral tablet 100 mg, By Mouth, Daily, for 30 days, # 30 tablet, Refills 0, Tot. Refills 0, Acute 01/28/24 8:55:00 EDT, 12/29/23 8:55:00 EDT, Do Not Route, Partial fill upon patient request if the prescription is for a schedule II opioid drug. Start Date: 12/29/23 Stop Date: 01/28/24 Status: Ordered Virattack - [facility] [...] Care team information Care Team Personnel Name: Susannah (Avel) Tamara Position: S storm sash maker Member Role: Infantry Weapons Crewmember Name: Alexx Stoner MD Position: S Physician - Primary Care Member Role: PCP Address: Address: [address] [place] [address]- [place] Name: Britt Reyes RN Position: S RN Member Role: Primary Care Nurse Name: Tia Devries RN Position: S RN Member Role: Primary Care Nurse Name: Suzie Johnson RN Position: [facility] RN Member Role: Primary Care Nurse Care Team Related Persons Name: OLEGARIO MALONE Address: home [address] [place] [address]
--- OUTSIDE RECORDS SUMMARY | 2024-03-01 20:49 | XMS_ITS | Continuity of Care Document ---
Author Organization [facility] Medicine Address [address] [place] [address]- Care Team Providers Care Plasterer Apprentice Name Role Phone Alexx Stoner MD Primary Care Physician [phone] Encounter [facility] [place] Date(s): 12/24/23 - 01/23/[address] [address] Allergies, Adverse Reactions, Alerts No Known Allergies Immunizations Given and Recorded Vaccine Date Status Refusal Reason influenza virus vaccine, inactivated 07/10/23 Give n influenza virus vaccine, inactivated 1 07/07/22 Gi mahsa influenza virus vaccine, inactivated 07/20/19 Give n SARS-CoV-2 (COVID-19) mRNA BNT-162b2 vac 01/10/21 Recorded SARS-CoV-2 (COVID-19) mRNA BNT-162b2 vac 12/20/20 Recorded pneumococcal 13-valent vaccine 07/20/19 Given 1Result Comment: 17252-732-28 Medications [facility] - [facility], Refills 0, Maintenance, 07/07/22 9:25:00 EDT, Supply Start Date: 07/07/22 Status: Ordered FLUoxetine 20 mg oral tablet 2 tablet = 40 mg, By Mouth, Daily, # 120 tablet, 3 Refills, Maintenance, 09/01/23 13:59:00 EST, Tablet, [facility][id number], Partial fill upon patient request if the [...] Personnel Name: Susannah (Avel) Tamara Position: S assistant county attorney Member Role: Assistant Director Of Public Works Name: Alexx Stoner MD Position: S Physician - Primary Care Member Role: PCP Address: Address: [address] [place] [phone]- [place] Name: Britt Reyes RN Position: S RN Member Role: Primary Care Nurse Name: Tia Devries RN Position: S RN Member Role: Primary Care Nurse Name: Suzie Johnson RN Position: [facility] RN Member Role: Primary Care Nurse Care Team Related Persons Name: OLEGARIO MALONE Address: home [address] [place] [address]
--- OUTSIDE RECORDS SUMMARY | 2024-03-01 20:49 | XMS_ITS | Continuity of Care Document ---
Author Organization [facility] Medicine Address [address] [place] [address]- Care Team Providers Care Carpenter Streetcar Name Role Phone Alexx Stoner MD Primary Care Physician [phone] Encounter [facility] [place] Date(s): 12/16/23 - 01/15/[address] [address] Allergies, Adverse Reactions, Alerts No Known Allergies Immunizations Given and Recorded Vaccine Date Status Refusal Reason influenza virus vaccine, inactivated 07/10/23 Give n influenza virus vaccine, inactivated 1 07/07/22 Gi mahsa influenza virus vaccine, inactivated 07/20/19 Give n SARS-CoV-2 (COVID-19) mRNA BNT-162b2 vac 01/10/21 Recorded SARS-CoV-2 (COVID-19) mRNA BNT-162b2 vac 12/20/20 Recorded pneumococcal 13-valent vaccine 07/20/19 Given 1Result Comment: 87682-530-55 Medications [facility] - [facility], Refills 0, Maintenance, 07/07/22 9:25:00 EDT, Supply Start Date: 07/07/22 Status: Ordered FLUoxetine 20 mg oral tablet 2 tablet = 40 mg, By Mouth, Daily, # 120 tablet, 3 Refills, Maintenance, 09/01/23 13:59:00 EST, Tablet, [id number], Partial fill upon patient request if the [...] team information Care Team Personnel Name: Susannah ([employer]) Tamara Position: [facility] black top spreader machine operator Member Role: Telecine Operator Name: Alexx Stoner MD Position: S Physician - Primary Care Member Role: PCP Address: Address: [address] [place] [phone]- [place] Name: Britt Reyes RN Position: S RN Member Role: Primary Care Nurse Name: Tia Devries RN Position: S RN Member Role: Primary Care Nurse Name: Suzie Johnson RN Position: [facility] RN Member Role: Primary Care Nurse Care Team Related Persons Name: OLEGARIO MALONE Address: home [address] [place] [address]
--- OUTSIDE RECORDS SUMMARY | 2024-03-01 20:49 | XMS_ITS | Continuity of Care Document ---
Author Organization [facility] Medicine Address [address] [place] [address]- Care Team Providers Care Configuration Management Specialist Name Role Phone Alexx Stoner MD Primary Care Physician [phone] Encounter [facility] [place] Date(s): 12/18/23 - 01/17/[address] [address] Allergies, Adverse Reactions, Alerts No Known Allergies Immunizations Given and Recorded Vaccine Date Status Refusal Reason influenza virus vaccine, inactivated 07/10/23 Give n influenza virus vaccine, inactivated 1 07/07/22 Gi mahsa influenza virus vaccine, inactivated 07/20/19 Give n SARS-CoV-2 (COVID-19) mRNA BNT-162b2 vac 01/10/21 Recorded SARS-CoV-2 (COVID-19) mRNA BNT-162b2 vac 12/20/20 Recorded pneumococcal 13-valent vaccine 07/20/19 Given 1Result Comment: [id number] Medications [facility] - [facility], Refills 0, Maintenance, 07/07/22 9:25:00 EDT, Supply Start Date: 07/07/22 Status: Ordered FLUoxetine 20 mg oral tablet 2 tablet = 40 mg, By Mouth, Daily, # 120 tablet, 3 Refills, Maintenance, 09/01/23 13:59:00 EST, Tablet, [facility][id number], Partial fill upon patient request if the [...] Personnel Name: Susannah (Avel) Tamara Position: S video clerk Member Role: Psychiatrist Name: Alexx Stoner MD Position: S Physician - Primary Care Member Role: PCP Address: Address: [address] [place] [phone]- [place] Name: Britt Reyes RN Position: S RN Member Role: Primary Care Nurse Name: Tia Devries RN Position: S RN Member Role: Primary Care Nurse Name: Suzie Johnson RN Position: [facility] RN Member Role: Primary Care Nurse Care Team Related Persons Name: OLEGARIO MALONE Address: home [address] [place] [address]
--- OUTSIDE RECORDS SUMMARY | 2024-03-01 20:49 | XMS_ITS | Continuity of Care Document ---
Author Organization [facility] Medicine Address [address] [place] [address]- Care Team Providers Care Cyber Security Engineer Name Role Phone Alexx Stoner MD Primary Care Physician [phone] Encounter [facility] [place] Date(s): 12/21/23 - 01/20/[address] [address] Attending Physician: AdmMak joy Admitting Physician: AdmtrMak [...] pneumococcal 13-valent vaccine 07/20/19 Given 1Result Comment: 47886-336-77 Medications [facility], Refills 0, Maintenance, 07/07/22 9:25:00 EDT, Supply Start Date: 07/07/22 Status: Ordered FLUoxetine 20 mg oral tablet 2 tablet = 40 mg, By Mouth, Daily, # 120 tablet, 3 Refills, Maintenance, 09/01/23 13:59:00 EST, Tablet, [facility][id number], Partial fill upon patient request if the [...] List Condition Confirmation Course Effective Dates Status [facility] Informant Alzheimer's dementia Confirmed Active B12 deficiency Confirmed Active 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 Anxiety with depression Confirmed Active Phlebitis Confirmed Active Varicose veins of legs Confirmed Active Social History Social History Type Response Smoking Status Never smoker entered on: 04/06/17 Sex Patient Care team information Care Team Personnel Name: Tamara Davalos ([employer]) Position: S dry cell assembly supervisor Member Role: City Bailiff Name: Alexx Stoner MD Position: S Physician - Primary Care Member Role: PCP Address: Address: [address] [place] [id number] Name: Britt Reyes RN Position: S RN Member Role: Primary Care Nurse Name: Tia Devries RN Position: S RN Member Role: Primary Care Nurse Name: Suzie Johnson RN Position: [facility] RN Member Role: Primary Care Nurse Care Team Related Persons Name: OLEGARIO MALONE Address: home [address] [place] [address]
--- OUTSIDE RECORDS SUMMARY | 2024-03-01 20:50 | XMS_ITS | Continuity of Care Document ---
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 Discharge Disposition: Transferred to short-term general hospit Attending Physician: Caprice Grant MD Admitting Physician: Amarilis Gardiner NP Referring Physician: Amarilis Gardiner NP Allergies, Adverse Reactions, Alerts No Known Allergies Immunizations Given and Recorded Vaccine Date Status Refusal Reason influenza virus vaccine, inactivated 07/10/23 Give n influenza virus vaccine, inactivated 1 07/07/22 Gi mahsa influenza virus vaccine, inactivated 07/20/19 Give n SARS-CoV-2 (COVID-19) mRNA BNT-162b2 vac 01/10/21 Recorded SARS-CoV-2 (COVID-19) mRNA BNT-162b2 vac 12/20/20 Recorded pneumococcal 13-valent vaccine 07/20/19 Given 1Result Comment: [id number] Medications [facility], Refills 0, Maintenance, 07/07/22 9:25:00 EDT, Supply Start Date: 07/07/22 Status: Ordered FLUoxetine 20 mg oral tablet 2 tablet = 40 mg, By Mouth, Daily, # 120 tablet, 3 Refills, Maintenance, 09/01/23 13:59:00 EST, Tablet, [id number], Partial fill upon patient request if the [...] Exam Date Time Procedure Performing Provider Status 12/27/23 1:[address] Head/Brain W/O Contrast Lauren Jaramillo; Auth (Verified) Notes: (CT Head/Brain W/O Contrast) Reason For Exam: Behavior Problem RESULT: CT Head/Brain W/O Contrast CT Head/Brain W/O Contrast INDICATION: Reason: Behavior Problem; Clinical Question(s): Infarction TECHNIQUE: Noncontrast head CT using axial technique and reconstructed in axial and coronal planes.Iterative reconstruction techniques are used to optimize dose and image quality. CTDIvol Head: 45.01 mGy, DLP Head: 770 mGy*cm. COMPARISON: None. FINDINGS: Business Management Manager view findings, lines and tubes: None. BRAIN AND EXTRA-AXIAL SPACES: No parenchymal hemorrhage, midline shift, or mass effect. Murillo-white matter differentiation is wellpreserved. No acute infarct. Negative insular ribbon sign. Atherosclerotic vascular calcification of the carotid arteries but negative hyperdense vessel sign. Moderate prominence of the ventricles and sulci consistent with parenchymal volume loss. Mild low-density white matter changes. Hypoattenuation is identified bilaterally, either dilated perivascular spaces or chronic small lacunar infarctions. No subarachnoid hemorrhage. No subdural or epidural collection. CALVARIUM, SKULL BASE, AND SOFT TISSUES: No fractures or suspicious bony lesions. The paranasal sinuses and mastoid air cells are clear aside from mild mucosal thickening of the anterior ethmoidal air cells. Probable tiny mucous retention cyst in the right sphenoid sinus. Visualized orbits and globes are intact. The extracranial soft tissues are unremarkable. IMPRESSION: No acute intracranial pathology. WSN: [id number] Ordering Physician: Delia Hood Dictated By: Alex Ashley MD Dictated Date/Time: 12/27/23 1:53 pm Reviewed By: Alex Ashley MD Signed By: Alex Ashley MD Signed Date/Time: 12/27/23 1:53 pm Transcribed By: MICKI Transcribed Date/Time: 12/27/23 1:52 pm Vital Signs Most recent to oldest [Reference Range]: 1 2 3 Height 168 cm (01/01/24 12:22 PM) 168 cm (01/01/24 8:13 AM) 168 cm (01/01/24 3:05 AM) Weight 54.0 kg (12/26/23 7:28 PM) 54.0 kg (12/26/23 7:00 PM) 59 kg (12/26/23 7:42 AM) Oxygen Saturation [94-100 %] 97 % (01/01/24 12:22 PM) 98 % (01/01/24 8:13 AM) 97 % (01/01/24 3:05 AM) Pulse Rate [55-90 bpm] 66 bpm (01/01/24 12:22 PM) 60 bpm (01/01/24 8:13 AM) 59 bpm (01/01/24 3:05 AM) Body Mass Index [18.5-24.99 kg/m2] 19.13 kg/m2 (12/26/23 7:28 PM) 19.13 kg/m2 (12/26/23 7:00 PM) 20.9 kg/m2 (12/26/23 7:42 AM) Blood Pressure [90-138/55-84 mm Hg] 92/55mm Hg (01/01/24 12:22 PM) 104/66mm Hg (01/01/24 8:13 AM) 110/69mm Hg (01/01/24 3:05 AM) Respiratory Rate [16-30 br/min] 19 br/min (01/01/24 12:22 PM) 18 br/min (01/01/24 8:13 AM) 16 br/min (01/01/24 3:05 AM) Temperature [96.8-100.4 DegF] 98.1 DegF (01/01/24 12:22 PM) 98.4 DegF (01/01/24 8:13 AM) 98.1 DegF (01/01/24 3:05 AM) Mode of Delivery (Oxygen) Room air (01/01/24 12:22 PM) Room air (01/01/24 8:13 AM) Room air (01/01/24 3:05 AM) Blood pressure sites Arm, right (01/01/24 12:22 PM) Arm, right (01/01/24 8:13 AM) Arm, right (01/01/24 3:05 AM) Temperature Route Oral (01/01/24 12:22 PM) Oral (01/01/24 8:13 AM) Oral (01/01/24 3:05 AM) Dry Weight 54.0 kg (12/26/23 7:00 PM) 59 kg (12/26/23 7:42 AM) 59 kg (12/25/23 8:31 PM) Weight Obtained Via Bed scale (12/26/23 7:28 PM) Social History Social History Type Response Smoking Status Never smoker entered on: 04/06/17 Sex Admission evaluation note * Amarilis Gardiner NP: PERFORM Event Display: Admission Note Authored Date: [id number] Patient: ??RIGO, ROSA ? Age:??78 Years?Sex:??Male?:??1945?? Chief Complaint/Reason for Consultation Behavioral changes History of Present Illness ?? 78-year-old??male with a PMH of Alzheimer's dementia,??he moved from [place]??when he was 23??yo, speaks [place] and [place] Citizen.?He was just discharged from this hospital on December 14??after being admitted with??pneumonia, discharged home with services. ?? Rosa??was brought to the ED today to be evaluated??for??behavioral changes??reportedly the patient has displayed inappropriate/aggressive sexual behavior toward??his son's ??then was found in his granddaughters room at night??leading to his transport to the ED.?In the ED??hemodynamically stable, all lab work unremarkable without any??abnormalities,??negative??flu panel and negative urinalysis.?? In the ED he was evaluated by crisis,??evaluated by PT??with no rehab needs,??family unableto take patient home??therefore case management is now attempting to place patient??into a facility,??referrals??have been made??with review will process to happen on Thursday.?He is being admitted for worsening dementia??with??behavioral changes unable??to go back home,??will need??placement??to a facility. On my evaluation he is oriented to place and person,??he is not really able to recall the events??that brought him to??the hospital,??he is cooperative and calm??during our conversation and is able to answer questions.?? Objective Vital Signs?? Temperature: 98.1 DegF (12/26/23 19:28:00) Temperature Route: Oral (12/26/23 19:28:00) Pulse Rate: 73 bpm (12/26/23 19:28:00) Respiratory Rate: 20 br/min (12/26/23 19:28:00) Systolic Blood Pressure: 107 mm Hg (12/26/23 19:28:00) Diastolic Blood Pressure: 68 mm Hg (12/26/23 19:28:00) Blood pressure sites: Arm, left (12/26/23 19:28:00) Mean Arterial Pressure: 81 mm Hg (12/26/23 19:28:00) Pulse Pressure: 39 mm Hg (12/26/23 19:28:00) Oxygen Saturation: 95 % (12/26/23 19:28:00) Mode of Delivery (Oxygen): Room air (12/26/23 19:28:00) Early Warning Score: 2 (12/26/23 20:15:39) ? Intake/Output? 12/24 14:08 12/25 07:00 12/24 07:00 12/23 07:00 12/22 07:00 ?? 12/25 20:50 12/25 20:50 06 06:59 05 06:59 04 06:59 Intake ?240 ?240 ?0 ?0 ?0 Output ?0 ?0 ?0 ?0 ?0 Net Total ?240 ?240 ?0 ?0 ?0 ? Urine Count ?0 ?0 ?0 ?0 ?0 ? Physical Exam Constitutional: Alert, in no distress, pleasant?? Mental Status: Oriented to person, place?? Head:??Normocephalic,??PERRLA, EOM intact?? Respiratory: Clear to auscultation. No wheezing, rales or rhonchi. Cardiovascular: S1 S2 regular. No murmurs, rubs or gallops. Gastrointestinal: Abdomen soft, non-tender, non-distended. Normal bowel sounds. Genitourinary: No costovertebral angle tenderness. Neurologic: Cranial nerves II-XII grossly intact. No focal neurological deficits. Flexor plantar response. Moves all extremities spontaneously. Sensation intact bilaterally. Skin: No rashes or lesions. Musculoskeletal:?No gross deformities. Normal range of motion. Assessment/Plan ?? 78-year-old??male with a PMH of Alzheimer's dementia,??he moved from [place]??when he was 23??yo, speaks [place] and [place] Citizen. ?? Alzheimer's dementia (G30.9):?? 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 Behavior disturbance (F91.9):?? Rosa??was brought to the ED to be evaluated??for??behavioral changes,??reportedly the patient has displayed inappropriate/aggressive sexual behavior toward??his son's ??then was found in his granddaughters room at night??leading to his transport to the ED.??Medically cleared,??hemodynamically stable, all lab work unremarkable without any??abnormalities,??negative??flu panel and negative urinalysis.??In the ED he was evaluated by crisis,??evaluated by PT??with no rehab needs,??family unable to take patient home??therefore case management is now attempting to place patient??into a facility,??referrals??have been made??with review will process to happen on Thursday.? VTE Prophylaxis:??Ordered ?VTE Prophylaxis Assessment:??VTE Prophylaxis Ordered ?? Code Status:??Full Code ?Order Code Status:??Code Status Ordered ? I spent??55 minutes providing care to this patient. My services included: history taking, physical examination, reviewing laboratory studies, and medications.? Histories Allergies Allergies ?(Active and Proposed Allergies Only) NKA? (Severity: Unknown severity, Onset: Unknown) ? Past Medical History/Problem List Active Problems(7) Alzheimer's dementia Alzheimer's dementia with behavioral disturbance Anxiety with depression B12 deficiency Femoral hernia of left side Phlebitis Varicose veins of legs ? Past Surgical History No surgery history documented. ? Social History Alcohol Details:??Other: occ. Employment/School Details:??Other: retired [employer]. Home/Environment Details:??Other: lives with partner,has 4 children-some live in [place]. Nutrition/Health Details:??Diet: Vegetarian. ??Caffeine intake amount: rarely. Substance Abuse Details:??Use: Never. Tobacco Details:??Never smoker Details:??Use: Never smoker. ? Family History Father: Family history of sudden (age 75-presumed to be a heart attack) Brother: Cancer of prostate (diagnosed age 61-doing ok) Daughter: Down syndrome ? 26-NOV-2013 07:29:58<$> Son: Bipolar ? Medications Home Medications Fluoxetine (FLUoxetine 20 mg oral tablet)?2?tab(s)?40?Milligram?By Mouth?Daily ? Inpatient Medications Medications (11) Active SCHEDULED: (3) Enoxaparin 40 mg Inj (Enoxaparin Inj) ??40 mg 0.4 mL, Subcutaneous Injection, Daily Fluoxetine 20 mg Capsule (FLUoxetine 20 mg oral capsule) ??40 mg, By Mouth, Daily NaCl 0.9% Flush 3ml (NaCL 0.9% [...] mg, Chew, 3 times a day ? Results Recent Labs BLOOD COUNT & DIFF WBC 6.3 k/mm3 ()?? 12/25/2023 16:38 RBC 4.33 m/mm3 (Low)?? 12/25/2023 16:38 Hgb 13.8 Gm/dL ()?? 12/25/2023 16:38 Hct 42.4 % ()?? 12/25/2023 16:38 MCV 97.9 femtoliters (High)?? 12/25/2023 16:38 MCH 31.9 pg ()?? 12/25/2023 16:38 MCHC 32.5 g/dL (Low)?? 12/25/2023 16:38 Platelet Count 514 k/mm3 (High)?? 12/25/2023 16:38 RDW-SD 48.0 femtoliters (High)?? 12/25/2023 16:38 MPV 9.6 femtoliters ()?? 12/25/2023 16:38 Nucleated RBC (Automated) 0.0 #/100 WBC'S ()?? 12/25/2023 16:38 Abs. NRBC 0.0 k/mm3 ()?? 12/25/2023 16:38 Abs. Neut 4.0 k/mm3 ()?? 12/25/2023 16:38 Abs. Lymph 1.8 k/mm3 ()?? 12/25/2023 16:38 Abs. Hopkins 0.4 k/mm3 ()?? 12/25/2023 16:38 Abs. Eo 0.1 k/mm3 ()?? 12/25/2023 16:38 Abs. Baso 0.0 k/mm3 ()?? 12/25/2023 16:38 Neut % 63.2 % ()?? 12/25/2023 16:38 Lymph % 28.5 % ()?? 12/25/2023 16:38 Hopkins % 6.5 % ()?? 12/25/2023 16:38 Eos % 1.3 % ()?? 12/25/2023 16:38 Baso % 0.3 % ()?? 12/25/2023 16:38 Imm Gran 0.2 % ()?? 12/25/2023 16:38 Abs. Imm Gran 0.0 k/mm3 ()?? 12/25/2023 16:38 ?? CHEM GENERAL Sodium 139 mmol/L ()?? 12/25/2023 16:38 Potassium 3.6 mmol/L ()?? 12/25/2023 16:38 Chloride 107 mmol/L ()?? 12/25/2023 16:38 Bicarbonate Level 24 mmol/L ()?? 12/25/2023 16:38 Anion Gap 8 ()?? 12/25/2023 16:38 Glucose Level 95 mg/dL ()?? 12/25/2023 16:38 BUN 19 mg/dL ()?? 12/25/2023 16:38 Creatinine-Blood 0.8 mg/dL ()?? 12/25/2023 16:38 Estimated GFR Creatinine 86 ML/MIN/1.73 M2 ()?? 12/25/2023 16:38 Calcium 8.6 mg/dL ()?? 12/25/2023 16:38 Protein, Total 7.3 Gm/dL ()?? 12/25/2023 16:38 Albumin 3.8 Gm/dL ()?? 12/25/2023 16:38 AG Ratio 1.1 ()?? 12/25/2023 16:38 Alkaline Phosphatase 93 units/L ()?? 12/25/2023 16:38 AST (SGOT) 19 units/L ()?? 12/25/2023 16:38 ALT (SGPT) 24 units/L ()?? 12/25/2023 16:38 Bilirubin, Total 0.2 mg/dL ()?? 12/25/2023 16:38 ?? FLUID STUDIES Hold Other SPECIMEN DISCARDED AFTER 1 WEEK ()?? 12/25/2023 16:38 ?? HEME OTHER Hold Blue Top SPECIMEN DISCARDED AFTER 4 HOURS. ()?? 12/25/2023 16:38 ?? MISC. CHEMISTRY Hold Gel Top SPECIMEN DISCARDED AFTER 1 WEEK ()?? 12/25/2023 16:38 ?? UA/URINALYSIS Appear/Color, Urine YELLOW ()?? 12/25/2023 18:40 Clarity CLEAR (N)?? 12/25/2023 18:40 Specific [place], Urine 1.025 ()?? 12/25/2023 18:40 pH, Urine 5.0 ()?? 12/25/2023 18:40 Albumin, Urine NEGATIVE (N)?? 12/25/2023 18:40 Glucose, Urine NEGATIVE (N)?? 12/25/2023 18:40 Ketones, Urine NEGATIVE (N)?? 12/25/2023 18:40 Bilirubin, Urine NEGATIVE (N)?? 12/25/2023 18:40 Hemoglobin, Urine NEGATIVE (N)?? 12/25/2023 18:40 Nitrite, Urine NEGATIVE (N)?? 12/25/2023 18:40 Leukocyte, Urine NEGATIVE (N)?? 12/25/2023 18:40 Urobilinogen NORMAL mg/dL (N)?? 12/25/2023 18:40 Hold Urine Culture Testing available 48 hours from time of collection. ()?? 12/25/2023 18:40 ?? URINE OTHER Est Creatinine Clearance 58.13 mL/min ()?? 12/26/2023 20:15 ?? VIROLOGY Influenza A PCR NEGATIVE ()?? 12/25/2023 16:49 Influenza B PCR NEGATIVE ()?? 12/25/2023 16:49 RSV PCR NEGATIVE ()?? 12/25/2023 16:49 COVID-19 PCR Specimen Source NASAL ()?? 12/25/2023 16:49 COVID-19 PCR Result NEGATIVE ()?? 12/25/2023 16:49 ? Urinalysis Est Creatinine Clearance: 58.13 mL/min (20:15) ?? Microbiology ?? COVID-19, RSV, and Flu A/B, Rapid PCR?? Completed?? Source: Nasal Body Site: Nose Collected Dt/Tm: 12/25/2023 16:26 Last Updated Dt/Tm: 12/25/2023 17:32 ? EKG study * Event Display: ECG 12-Lead Authored Date: Please click on pdf link to open report * Event Display: ECG 12-Lead Authored Date: Ventricular Rate: 70 BPM Atrial Rate: 70 BPM P-R Interval: 142 ms QRS Duration: 70 ms Q-T Interval: 390 ms QTC Calculation(Bazett): 421 ms P [place]: 78 degrees R [place]: -2 degrees T [place]: 65 degrees Normal sinus rhythm with sinus arrhythmia Normal ECG When compared with ECG of 13-DEC-2023 01:43, Aberrant conduction is no longer Present Confirmed by BEATRIZ KEITH ([id number]) on 12/28/2023 10:42:27 AM [place] * Bertha Welsh RN: PERFORM, SIGN, VERIFY Event Display: [facility] Authored Date: Patient: ROSA SIERRA Age: 78 years Sex: Male : 1945 Associated Diagnoses: None Author: Bertha Welsh RN Findings Narrative/Incidental A&Ox1-2, confused but pleasant and cooperative with care vss. afebrile. denies cp/palp. +csm. no edema noted. lung sounds cta. denies sob/cough. spo2 wnl on ra. abd soft/nt. +bsx4. denies n/v/d. patria po. voiding in br without concerns. ambulating with x1 assist. [facility]. RN to RN report called to Danica @ [facility]; [phone]. Pt under Section 12 for transport.. Discharge Information Case Management Discharge Plan : Case Management Discharge Plan Data 12/30/2023 20:49 EDT Discharge Level of Care at Discharge Not Done: Assessed, No Action Needed (Not Done) * Britt Reyes RN: PERFORM, SIGN, VERIFY Event Display: Progress Note Hospital Authored Date: [id number] Patient: ROSA SIERRA Age: 78 years Sex: Male : 1945 Associated Diagnoses: None Author: Britt Reyes RN Findings Narrative/Incidental [facility]. Pt alert and oriented to person, place, and time. Does look at the board when asked about the date. VSS. No acute overnight events. Pt has been appropriate with staff. : Pt ambulates to bathroom with standby assistance. GI: pt states his last bowel movement was on 12/31/23. No complaints of nausea, vomiting, or pain. Bed in lowest position, wheels locked, call light within reach. Bed alarm activated and audible. Video monitor in use. . * Bertha Welsh RN: PERFORM, SIGN, VERIFY Event Display: Progress Note Hospital Authored Date: [id number] Patient: ROSA SIERRA Age: 78 years Sex: Male : 1945 Associated Diagnoses: None Author: Bertha Welsh RN Findings Problem Related to Alteration in Safety : Alteration in Safety/new 12/31/2023 13:00 EDT Alteration in Safety Related to Other: placement admission Goals & Outcomes, Safety Psychosocial support will be provided to Pt/S.O. as needed, Pt/caregiver will state understanding of plan/goals of care, Pt will remain safe & injury free, Pt/caregiver will be offered appropriate resources & support, Pt/caregiver will verbalize understanding ofthe D/C plan Interventions, Safety Provide info on community resources for education, support, Provide teaching as needed BH Goals/Interventions, Safety Yes Safety, Problem Start 12/26/2023 20:30 Reviewed plan with, Safety Patient Patient Progression, Safety Pt progressing according to plan . Narrative/Incidental A&Ox2, confused but pleasant and cooperative with care vss. afebrile. denies cp/palp. +csm. no edema noted. lung sounds cta. denies sob/cough. spo2 wnl on ra. abd soft/nt. +bsx4. denies n/v/d. patria po. voiding in br without concerns. ambulating with x1 assist. medically cleared, awaiting placement.. Discharge Information Case Management Discharge Plan : Case Management Discharge Plan Data 12/30/2023 20:49 EDT Discharge Level of Care at Discharge Not Done: Assessed, No Action Needed (Not Done) Rehabilitation Discharge : Rehab Discharge Index 12/26/2023 9:24 EDT Full chart review completed Yes Hospital course Negative testing Other findings Pt was appropriate during full interaction with no mal behaviors. Pt was engaged andfully receptive for PT participation and engagement. Pt was able to be re-directed if needed secondary to confusion. Pt is at functional baseline with ambulation and ADL Note * Britt Reyes RN: PERFORM Event Display: Discharge/Transfer Note Hospital Authored Date: [id number] Nursing Discharge Note Entered On: 01/01/2024 19:39 EDT Performed On: 01/01/2024 19:36 EDT by Britt Reyes RN Nursing Discharge Note 2 Discharge Time : 01/01/2024 19:36 EDT Discharge Level of Care at Discharge : Psychiatric Facility/Unit Name of Receiving [facility] : [facility] Patient Left Unit Via : Ambulance Patient Accompanied Off Unit with : Ambulance/Chair Van Personnel Handover Given to Transport Personnel : Yes DC Instructions Provided & Signed by Pt : Yes Patient Understands D/C Instructions : Yes Patient Instructions Discharge Signed : Yes Did Pt have Specialty Bed or Wound Vac : Yes Britt Reyes RN - 01/01/2024 19:37 EDT * Juanita WOODY, Caprice Shea: PERFORM, MODIFY Event Display: Discharge/Transfer Note Hospital Authored Date: Patient: ??ROSA SIERRA ? Age:??78 Years?Sex:??Male?:??1945?? Patient Information Discharge Location: [facility] Primary Care Physician: Alexx Stoner MD Admit Date/Time: 12/25/23 14:08 Discharge Disposition Discharge Disposition: ?? 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 Vaccinations and Immunoprophylaxis influenza virus vaccine, inactivated: 0.7 mL (07/10/23 10:55:00) influenza virus vaccine, inactivated: 0.7 mL (07/07/22 09:51:00) influenza virus vaccine, inactivated: 0.5 mL (07/20/19 10:30:00) pneumococcal 13-valent vaccine: 0.5 mL (07/20/19 10:30:00) SARS-CoV-2 (COVID-19) mRNA BNT-162b2 vac: 0.5 Unknown (01/10/21 08:00:00) SARS-CoV-2 (COVID-19) mRNA BNT-162b2 vac: 0.5 Unknown (12/20/20 08:00:00) ?? Allergies Allergies ?(Active and Proposed Allergies Only) NKA? (Severity: Unknown severity, Onset: Unknown) ? Hospital Course 78-year-old male with a PMH of Alzheimer's dementia presented with behavioral changes.??During his hospitalization patient was treated for the following conditions: ?? Dementia with behavioral problem (F03.918): was brought to the ED to be evaluated for behavioral changes, reportedly the patient has displayed inappropriate/aggressive sexual behavior toward his son's then was found in his granddaughters room at night leading to his transport to the ED. Had a CT head negative for acute abnormality. Labs: B12, TSH nl, RPR pending. Seen by psychiatrist who recommends Patient lacks insight into his own behavior and its impact on others. He lacks capacity tomake decisions regarding his future care/placement in the community. It would be appropriate to invoke his HCP for decision making. ; HCP/son KRYSTAL CARROLL is invoked.??Patient has been clinically and hemodynamically stable appropriate for discharge today to??a [facility]??bed.?? Icalled Dr. Altman at [phone] and gave him a report of patient's health status at this time, he is the accepting physician. ? Syncope (R55): experienced few days ago, orthostatic mediated, resolved, not recurred, stable. ?? Objective Measurements?? Height: 168 cm (01/01/24) Weight: 54 kg (12/26/23) Dry Weight: 54 kg (12/26/23) Body Mass Index: 19.13 kg/m2 (12/26/23) ? Vital Signs?? Temperature: 98.1 DegF (01/01/24 12:22:00) Temperature Route: Oral (01/01/24 12:22:00) Pulse Rate: 66 bpm (01/01/24 12:22:00) Respiratory Rate: 19 br/min (01/01/24 12:22:00) Systolic Blood Pressure: 92 mm Hg (01/01/24 12:22:00) Diastolic Blood Pressure: 55 mm Hg (01/01/24 12:22:00) Blood pressure sites: Arm, right (01/01/24 12:22:00) Mean Arterial Pressure: 67 mm Hg (01/01/24 12:22:00) Pulse Pressure: 37 mm Hg (01/01/24 12:22:00) Oxygen Saturation: 97 % (01/01/24 12:22:00) Mode of Delivery (Oxygen): Room air (01/01/24 12:22:00) Early Warning Score: 1 (01/01/24 12:23:22) ? Mobility & Ambulation Level Mobility & Ambulation Level Activity Assistance: Standby assist (12/29/23) Activity Status ADL: Bathroom privileges (12/29/23) Ambulatory devices needed: None (12/29/23) Repositioning: Self (12/29/23) ?? . Physical Exam General:??Alert, in no acute cardiopulmonary distress. Mental Status:??Oriented to person, place and time. Normal affect. Head:??Normocephalic. Eyes:??Pupils are equal, round and reactive to light. Extraocular muscles intact. Ear, Nose and Throat:??Oropharynx clear, mucous membranes moist. Ears and nose without masses, lesions or deformities. Trachea midline. Neck:??Supple, Full range of motion. Respiratory:??Clear to auscultation and percussion. No wheezing, rales or rhonchi. Cardiovascular:??Heart sounds normal. No thrills. Regular rate and rhythm, no murmurs, rubs or gallops. ??Lower extremity without edema bilaterally. Gastrointestinal:??Abdomen soft, non-tender, non-distended. Normal bowel sounds. No pulsatile mass.No hepatosplenomegaly. Genitourinary:??No costovertebral angle tenderness. Neurologic:??Cranial nerves II-XII grossly intact. No focal neurological deficits.?? Moves all extremities spontaneously. Sensation intact bilaterally. Skin:??No rashes or lesions. No petechiae or purpura. No edema. Musculoskeletal:??No cyanosis or clubbing. No gross deformities. Normal range of motion. Pending Results Add On Lab Order ordered on 12/27/2023 Syphilis Testing formerly ordered as RPR ordered on 12/25/2023 Follow-Up Appointments Added Follow Up ?Time Frame ?Comments Alexx Stoner MD?1 ?? Months Post Discharge Care Discharge ?transfer to [facility] bed, 01/01/24 12:25:00 EDT ?12/29/23 8:57:00 EDT Home Health Face to Face ^[facility] Results Discharge Labs BLOOD COUNT & DIFF WBC 6.3 k/mm3 ()?? 12/25/2023 16:38 RBC 4.33 m/mm3 (Low)?? 12/25/2023 16:38 Hgb 13.8 Gm/dL ()?? 12/25/2023 16:38 Hct 42.4 % ()?? 12/25/2023 16:38 MCV 97.9 femtoliters (High)?? 12/25/2023 16:38 MCH 31.9 pg ()?? 12/25/2023 16:38 MCHC 32.5 g/dL (Low)?? 12/25/2023 16:38 Platelet Count 514 k/mm3 (High)?? 12/25/2023 16:38 RDW-SD 48.0 femtoliters (High)?? 12/25/2023 16:38 MPV 9.6 femtoliters ()?? 12/25/2023 16:38 Nucleated RBC (Automated) 0.0 #/100 WBC'S ()?? 12/25/2023 16:38 Abs. NRBC 0.0 k/mm3 ()?? 12/25/2023 16:38 Abs. Neut 4.0 k/mm3 ()?? 12/25/2023 16:38 Abs. Lymph 1.8 k/mm3 ()?? 12/25/2023 16:38 Abs. Hopkins 0.4 k/mm3 ()?? 12/25/2023 16:38 Abs. Eo 0.1 k/mm3 ()?? 12/25/2023 16:38 Abs. Baso 0.0 k/mm3 ()?? 12/25/2023 16:38 Neut % 63.2 % ()?? 12/25/2023 16:38 Lymph % 28.5 % ()?? 12/25/2023 16:38 Hopkins % 6.5 % ()?? 12/25/2023 16:38 Eos % 1.3 % ()?? 12/25/2023 16:38 Baso % 0.3 % ()?? 12/25/2023 16:38 Imm Gran 0.2 % ()?? 12/25/2023 16:38 Abs. Imm Gran 0.0 k/mm3 ()?? 12/25/2023 16:38 ?? CARDIAC High Sensitivity Troponin (HSTnT) 12 ng/L ()?? 12/28/2023 22:05 ? CHEM GENERAL Sodium 139 mmol/L ()?? 12/25/2023 16:38 Potassium 3.6 mmol/L ()?? 12/25/2023 16:38 Chloride 107 mmol/L ()?? 12/25/2023 16:38 Bicarbonate Level 24 mmol/L ()?? 12/25/2023 16:38 Anion Gap 8 ()?? 12/25/2023 16:38 Glucose Level 95 mg/dL ()?? 12/25/2023 16:38 Glucose, POC 98 mg/dL ()?? 12/27/2023 19:35 BUN 19 mg/dL ()?? 12/25/2023 16:38 Creatinine-Blood 0.8 mg/dL ()?? 12/25/2023 16:38 Estimated GFR Creatinine 86 ML/MIN/1.73 M2 ()?? 12/25/2023 16:38 Calcium 8.6 mg/dL ()?? 12/25/2023 16:38 Protein, Total 7.3 Gm/dL ()?? 12/25/2023 16:38 Albumin 3.8 Gm/dL ()?? 12/25/2023 16:38 AG Ratio 1.1 ()?? 12/25/2023 16:38 Alkaline Phosphatase 93 units/L ()?? 12/25/2023 16:38 AST (SGOT) 19 units/L ()?? 12/25/2023 16:38 ALT (SGPT) 24 units/L ()?? 12/25/2023 16:38 Bilirubin, Total 0.2 mg/dL ()?? 12/25/2023 16:38 Vitamin B12 Level 560 pg/mL ()?? 12/25/2023 16:38 Folic Acid Level 5.6 ng/mL ()?? 12/25/2023 16:38 ?? ENDOCRINE/TUMOR MARKER TSH 3.16 uIU/mL ()?? 12/25/2023 16:38 ? FLUID STUDIES Hold Other SPECIMEN DISCARDED AFTER 1 WEEK ()?? 12/25/2023 16:38 ? HEME OTHER Hold Blue Top SPECIMEN DISCARDED AFTER 4 HOURS. ()?? 12/25/2023 16:38 ? MISC. CHEMISTRY Hold Gel Top SPECIMEN DISCARDED AFTER 1 WEEK ()?? 12/25/2023 16:38 ? UA/URINALYSIS Appear/Color, Urine YELLOW ()?? 12/25/2023 18:40 Clarity CLEAR (N)?? 12/25/2023 18:40 Specific [place], Urine 1.025 ()?? 12/25/2023 18:40 pH, Urine 5.0 ()?? 12/25/2023 18:40 Albumin, Urine NEGATIVE (N)?? 12/25/2023 18:40 Glucose, Urine NEGATIVE (N)?? 12/25/2023 18:40 Ketones, Urine NEGATIVE (N)?? 12/25/2023 18:40 Bilirubin, Urine NEGATIVE (N)?? 12/25/2023 18:40 Hemoglobin, Urine NEGATIVE (N)?? 12/25/2023 18:40 Nitrite, Urine NEGATIVE (N)?? 12/25/2023 18:40 Leukocyte, Urine NEGATIVE (N)?? 12/25/2023 18:40 Urobilinogen NORMAL mg/dL (N)?? 12/25/2023 18:40 Hold Urine Culture Testing available 48 hours from time of collection. ()?? 12/25/2023 18:40 ? URINE OTHER Est Creatinine Clearance 58.13 mL/min ()?? 12/26/2023 20:15 ? VIROLOGY Influenza A PCR NEGATIVE ()?? 12/25/2023 16:49 Influenza B PCR NEGATIVE ()?? 12/25/2023 16:49 RSV PCR NEGATIVE ()?? 12/25/2023 16:49 COVID-19 PCR Specimen Source NASAL ()?? 12/25/2023 16:49 COVID-19 PCR Result NEGATIVE ()?? 12/25/2023 16:49 ? Microbiology ?? COVID-19, RSV, and Flu A/B, Rapid PCR?? Completed?? Source: Nasal Body Site: Nose Collected Dt/Tm: 12/25/2023 16:26 Last Updated Dt/Tm: 12/25/2023 17:32 ? Imaging(s) ?CT Head/Brain W/O Contrast ?? 12/27/2023 13:22??by Alex Ashley MD ?IMPRESSION: ?? No acute intracranial pathology. ? 30??minutes spent on discharge * Blaise PALMA, Bertha: PERFORM Event Display: Patient Education/Instruction Authored Date: Inpatient [place] [address] Name: ROSA SIERRA : 1945?? Visit: 12/25/2023 14:08?? Current Date: 01/01/2024 13:22 ?? Account: [id number]?? Inpatient Adult Discharge Instructions We would like [...] and their families. Surveys are administered by [employer] ?? If further treatment with your primary care physician or another doctor is recommended, it is important for you to keep the appointment. Call your primary care physician or return to the Emergency Department immediately if your condition worsens, fails to improve, or new symptoms develop. If you need to find a doctor, you can call [facility] for a referral at [phone] or toll free at [phone]) or log in to [email or web address].. ?? [facility], in keeping with [facility] guidance, no longer requires face masks for [...] a health care lopez of your choosing. [employer] is a website that allows you to securely view your medical information including your hospital discharge summary, office visit summaries, medications and follow-up visits. You can also request appointments, renew medications, and request access to your medical information using a health care lopez of your choosing, or just ask a question. You can enroll at [email or web address] or register during your next office visit. You have been discharged from [facility], Patient Care Unit: [id number]??. If you have any questions regarding these instructions, including results of studies pending, afteryou leave, please call us and we will be happy to assist you 13/04. [facility] Your Care Team Attending Physician Caprice Grant MD?? Consulting Providers Caprice Grant MD?? Discharging Providers Caprice Grant MD Reason for Your Visit Behavioral changes?? Your Diagnosis Dementia with behavioral problem Syncope Tests Performed Below is a partial list of the tests performed during your hospitalization. You may have had other tests and procedures not included in this list. Please discuss all test results with your provider. CBC w/ Differential Comprehensive Metabolic Panel COVID-19, RSV, and Flu A/B, Rapid PCR FOLIC ACID GLUCOSE POC HOLD BLUE TUBE HOLD GEL TUBE HOLD OTHER TUBE Troponin T, High Sensitivity TSH Urinalysis w/hold for Urine Culture VITAMIN B12 CT Head/Brain W/O Contrast Add On Lab Order?? Syphilis Testing formerly ordered as RPR (SYPHILIS TESTING)?? Primary Care Provider Alexx Stoner MD? Advance Directive Health Care Proxy on File Yes - Health Care Proxy Yes - MOLST Discharge Vitals Temperature: 98.1 DegF Height: 168 cm Pulse Rate: 66 bpm Weight: 54 kg Respiratory Rate: 19 br/min Body Mass Index: 19.13 kg/m2 Systolic Blood Pressure: 92 mm Hg Body surface area: 1.59 Diastolic Blood Pressure: 55 mm Hg ?? Oxygen Saturation: 97 % ?? Studies Pending All studies ordered during this hospital stay have been completed unless listed below. Please discuss all pending results with your provider listed above in these instructions. ?? Add On Lab Order?? Syphilis Testing formerly ordered as RPR (SYPHILIS TESTING)?? What to do next Instructions From Your Doctor ?? Orders?? to [facility], ??01/01/24 12:25:00 EDT?? 12/29/23 8:57:00 EDT?? You Need to Schedule the Following Appointments Follow Up with??Alexx Stoner MD When:??In 1 month Where: [address] [place] [id number]- Discharge Medications ROSA SIERRA :1945 Visit Date:12/25/2023 Medications: Please continue your medications until treatment is completed or stopped by your provider. Medications not listed below should be discontinued. Discuss any questions related to medications with your provider. What How Much When Instructions Next Dose New Folic Acid (folic acid 1 mg oral tablet) 1 Milligram Oral Daily Duration: 30 Days 01/02/24 AM New Thiamine (thiamine 100 mg oral tablet) 100 Milligram Oral Daily Duration: 30 Days 01/02/24 AM Unchanged Fluoxetine (FLUoxetine 20 mg oral tablet) 2 tab(s) Oral Daily 01/01/23 AM Unchanged Miscellaneous Rx (Brain and Memory - [facility]) Unchanged Miscellaneous Rx (Gum Guardian - [facility]) Unchanged Miscellaneous Rx (Rapid Immune Boost - [facility]) Unchanged Miscellaneous Rx (Virattack - [facility]) Unchanged Miscellaneous Rx (Warming Circulation - [facility]) Prescription Given During Visit Folic Acid (folic acid 1 mg oral tablet) - 1 mg, By Mouth, Daily, # 30 tablet, 0 Refills?? Thiamine (thiamine 100 mg oral tablet) - 100 mg, By Mouth, Daily, # 30 tablet, 0 Refills?? Laboratory Results Below is a partial list of the most recent Laboratory test results done prior to this discharge. You may have had other tests and procedures not included in this list. Please discuss all test resultswith your provider. Est Creatinine Clearance - 58.13 mL/min (12/26/2023) CBC w/ Differential (12/25/2023) ???WBC - 6.3 k/mm3???RBC - 4.33 m/mm3???Hgb - 13.8 Gm/dL???Hct - 42.4 %???MCV - 97.9 femtoliters???MCH - 31.9 pg???MCHC - 32.5 g/dL???Platelet Count - 514 k/mm3???RDW-SD - 48.0 femtoliters???MPV - 9.6 femtoliters???Nucleated RBC (Automated) - 0.0 #/100 WBC'S???Abs. NRBC - 0.0 k/mm3???Abs. Neut - 4.0 k/mm3???Abs. Lymph - 1.8 k/mm3???Abs. Hopkins - 0.4 k/mm3???Abs. Eo - 0.1 k/mm3???Abs. Baso - 0.0 k/mm3???Neut % - 63.2 %???Lymph % - 28.5 %???Hopkins % - 6.5 %???Eos % - 1.3 %???Baso % - 0.3 %???Imm Gran- 0.2 %???Abs. Imm Gran - 0.0 k/mm3 Comprehensive Metabolic Panel (12/25/2023) ???Sodium - 139 mmol/L???Potassium - 3.6 mmol/L???Chloride - 107 mmol/L???Bicarbonate Level - 24 mmol/L???Anion Gap - 8???Glucose Level - 95 mg/dL???BUN - 19 mg/dL???Creatinine-Blood - 0.8 mg/dL???Estimated GFR Creatinine - 86 ML/MIN/1.73 M2???Calcium - 8.6 mg/dL???Protein, Total - 7.3 Gm/dL???Albumin - 3.8 Gm/dL???AG Ratio - 1.1???Alkaline Phosphatase - 93 units/L???AST (SGOT) - 19 units/L???ALT(SGPT) - 24 units/L???Bilirubin, Total - 0.2 mg/dL COVID-19, RSV, and Flu A/B, Rapid PCR (12/25/2023) ???Influenza A PCR - NEGATIVE???Influenza B PCR - NEGATIVE???RSV PCR - NEGATIVE???COVID-19 PCR Specimen Source - NASAL???COVID-19 PCR Result - NEGATIVE FOLIC ACID (12/25/2023) ???Folic Acid Level - 5.6 ng/mL GLUCOSE POC (12/27/2023) ???Glucose, POC - 98 mg/dL HOLD BLUE TUBE (12/25/2023) ???Hold Blue Top - SPECIMEN DISCARDED AFTER 4 HOURS. HOLD GEL TUBE (12/25/2023) ???Hold Gel Top - SPECIMEN DISCARDED AFTER 1 WEEK HOLD OTHER TUBE (12/25/2023) ???Hold Other - SPECIMEN DISCARDED AFTER 1 WEEK Troponin T, High Sensitivity (12/28/2023) ???High Sensitivity Troponin (HSTnT) - 12 ng/L TSH (12/25/2023) ???TSH - 3.16 uIU/mL Urinalysis w/hold for Urine Culture (12/25/2023) ???Appear/Color, Urine - YELLOW???Clarity - CLEAR???Specific [place], Urine - 1.025???pH, Urine - 5.0???Albumin, Urine - NEGATIVE???Glucose, Urine - NEGATIVE???Ketones, Urine - NEGATIVE???Bilirubin, Urine - NEGATIVE???Hemoglobin, Urine - NEGATIVE???Nitrite, Urine - NEGATIVE???Leukocyte, Urine - NEGA TIVE???Urobilinogen - NORMAL???Hold Urine Culture - Testing available 48 hours from time of collection. VITAMIN B12 (12/25/2023) ???Vitamin B12 Level - 560 pg/mL Allergies (NKA means No Known Allergies) NKA Problems Active Problems??(8) Alzheimer's dementia?? Alzheimer's dementia with behavioral disturbance?? Anxiety with depression?? B12 deficiency?? [facility] Extruder Tamara Davalos [phone]?? Femoral hernia of left side?? Phlebitis?? Varicose veins of legs?? Education Materials Below is the list of Educational Leaflet Providered with your Discharge Instructions. Valuables and Belongings I fully understand and agree that [facility] accepts no responsibility for all my [...] of Valuable and Belonging List: With patient Disposition of Belongings: Valuables Locked Date for Pt to Sign Valuables/Belongings: 12/30/23 19:17:00 ?? Other Discharge Information ? Pulmonary Rehab Status?? Pulmonary Rehab Discharge Status?? Respiratory Rate: 19 br/min ? Common Emergency Awareness Tips IS [...] are strongly encouraged to quit. Please call [facility] at [phone] or [phone] ([phone]) or log in to [email or web address] for referrals to smoking cessation programs. ?? 236 Suicide & Crisis Lifeline is available 13/04 if you or someone you know needs to find a reason to keep living. By calling 791 you'll be connected to a skilled, trained counselor at a crisis center in your area. INPATIENT DISCHARGE INSTRUCTIONS SIGNATURE PAGE ROSA SIERRA Location:[facility] Registration Date and Time:12/25/2023 14:08 EDT Primary Care Physician: Alexx Stoner MD, Attending Physician: Juanita WOODY, Caprice Shea, I ROSA SIERRA, have received the above patient education materials/instructions and have verbalized understanding. If ambulance or transport services are being used I further acknowledge being given achoice of service. ?? If you need to contact me, please call me at this number: . Patient/Air Tank Assembler Name: Patient/Air Tank Assembler Signature: Relationship to Patient: Witness Name/Signature: Date: * Delia Hood MD: PERFORM, MODIFY, MODIFY Event Display: Discharge/Transfer Note Hospital Authored Date: [id number] Patient: ??RIGO, ROSA ? Age:??78 Years?Sex:??Male?:??1945?? Patient Information Discharge Location: [facility] Primary Care Physician: Alexx Stoner MD Admit Date/Time: 12/25/23 14:08 Discharge Disposition Discharge Disposition: ?? 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 Medications Started Folic Acid (folic acid 1 mg oral tablet)?1?Milligram?By Mouth?Daily?for 30?Days Thiamine (thiamine 100 mg oral tablet)?100?Milligram?By Mouth?Daily?for 30?Days ? Allergies Allergies ?(Active and Proposed Allergies Only) NKA? (Severity: Unknown severity, Onset: Unknown) ? Objective Assessment and Plan Assessment:??78-year-old male with a PMH of Alzheimer's dementia, he moved from [place] when he was 23 yo, speaks Occitan and [place] Citizen in addition to Bulgarian. He is fluent in Bulgarian. ?? 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 -CT head negative for acute abnormality -B12, TSH nl, RPR pending. -Seen by psychiatrist who recommends Patient lacks insight into his own behavior and its impact on others. He lacks capacity to make decisions regarding his future care/placement in the community. It would be appropriate to invoke hisHCP for decision making. -I invoked healthcare proxy,??his son??RUY CARROLLM ?? Syncope night of 12/26 in hospital. Orthostatics were positive and HR briefly was in 30s otherwise BPwas stable per covering physician.?On??no rate limiting medications. -I administered lactated Ringer solution??and monitored on telemetry, telemetry nonrevealing.?Sinus with sinus arrhythmia. ?? Folic acid borderline at 5.6 and I started folic acid supplements in addition to thiamine. ?? Mild facial??asymmetry??on the right side.?? Seems chronic??CT head was negative ?? Vital Signs?? Temperature: 97.6 DegF (12/29/23 07:06:00) Temperature Route: Oral (12/29/23 07:06:00) Pulse Rate: 55 bpm (12/29/23 07:06:00) Respiratory Rate: 16 br/min (12/29/23 07:06:00) Systolic Blood Pressure: 106 mm Hg (12/29/23 07:06:00) Diastolic Blood Pressure: 67 mm Hg (12/29/23 07:06:00) Blood pressure sites: Arm, right (12/29/23 07:06:00) Mean Arterial Pressure: 80 mm Hg (12/29/23 07:06:00) Pulse Pressure: 39 mm Hg (12/29/23 07:06:00) Oxygen Saturation: 96 % (12/29/23 07:06:00) Mode of Delivery (Oxygen): Room air (12/29/23 07:06:00) Early Warning Score: 2 (12/29/23 07:36:16) ? Mobility & Ambulation Level Mobility & Ambulation Level Activity Assistance: Standby assist (12/29/23) Activity Status ADL: Bathroom privileges, Up with assistance (12/29/23) Ambulatory devices needed: None (12/29/23) Repositioning: Self (12/29/23) ?? . Physical Exam ? Constitutional: Alert, in no acute distress. Mental Status: Oriented to person, place Head: Normocephalic. Eyes: Extraocular muscles intact. Ear, Nose and Throat: Oropharynx clear, mucous membranes moist.?? Neck: Supple, Full range of motion. Respiratory: Clear to auscultation, No wheezing, rales or rhonchi. Cardiovascular: S1 S2 regular.?? Gastrointestinal: Abdomen soft, non-tender, non-distended. Normal bowel sounds.?? Pending Results Add On Lab Order ordered on 12/27/2023 Syphilis Testing formerly ordered as RPR ordered on 12/25/2023 Follow-Up Appointments Added Follow Up ?Time Frame ?Comments Alexx Stoner MD?3 to 5 days Home Health Face to Face ^HomeHealthFTF Results Discharge Labs BLOOD COUNT & DIFF WBC 6.3 k/mm3 ()?? 12/25/2023 16:38 RBC 4.33 m/mm3 (Low)?? 12/25/2023 16:38 Hgb 13.8 Gm/dL ()?? 12/25/2023 16:38 Hct 42.4 % ()?? 12/25/2023 16:38 MCV 97.9 femtoliters (High)?? 12/25/2023 16:38 MCH 31.9 pg ()?? 12/25/2023 16:38 MCHC 32.5 g/dL (Low)?? 12/25/2023 16:38 Platelet Count 514 k/mm3 (High)?? 12/25/2023 16:38 RDW-SD 48.0 femtoliters (High)?? 12/25/2023 16:38 MPV 9.6 femtoliters ()?? 12/25/2023 16:38 Nucleated RBC (Automated) 0.0 #/100 WBC'S ()?? 12/25/2023 16:38 Abs. NRBC 0.0 k/mm3 ()?? 12/25/2023 16:38 Abs. Neut 4.0 k/mm3 ()?? 12/25/2023 16:38 Abs. Lymph 1.8 k/mm3 ()?? 12/25/2023 16:38 Abs. Hopkins 0.4 k/mm3 ()?? 12/25/2023 16:38 Abs. Eo 0.1 k/mm3 ()?? 12/25/2023 16:38 Abs. Baso 0.0 k/mm3 ()?? 12/25/2023 16:38 Neut % 63.2 % ()?? 12/25/2023 16:38 Lymph % 28.5 % ()?? 12/25/2023 16:38 Hopkins % 6.5 % ()?? 12/25/2023 16:38 Eos % 1.3 % ()?? 12/25/2023 16:38 Baso % 0.3 % ()?? 12/25/2023 16:38 Imm Gran 0.2 % ()?? 12/25/2023 16:38 Abs. Imm Gran 0.0 k/mm3 ()?? 12/25/2023 16:38 ?? CARDIAC High Sensitivity Troponin (HSTnT) 12 ng/L ()?? 12/28/2023 22:05 ? CHEM GENERAL Sodium 139 mmol/L ()?? 12/25/2023 16:38 Potassium 3.6 mmol/L ()?? 12/25/2023 16:38 Chloride 107 mmol/L ()?? 12/25/2023 16:38 Bicarbonate Level 24 mmol/L ()?? 12/25/2023 16:38 Anion Gap 8 ()?? 12/25/2023 16:38 Glucose Level 95 mg/dL ()?? 12/25/2023 16:38 Glucose, POC 98 mg/dL ()?? 12/27/2023 19:35 BUN 19 mg/dL ()?? 12/25/2023 16:38 Creatinine-Blood 0.8 mg/dL ()?? 12/25/2023 16:38 Estimated GFR Creatinine 86 ML/MIN/1.73 M2 ()?? 12/25/2023 16:38 Calcium 8.6 mg/dL ()?? 12/25/2023 16:38 Protein, Total 7.3 Gm/dL ()?? 12/25/2023 16:38 Albumin 3.8 Gm/dL ()?? 12/25/2023 16:38 AG Ratio 1.1 ()?? 12/25/2023 16:38 Alkaline Phosphatase 93 units/L ()?? 12/25/2023 16:38 AST (SGOT) 19 units/L ()?? 12/25/2023 16:38 ALT (SGPT) 24 units/L ()?? 12/25/2023 16:38 Bilirubin, Total 0.2 mg/dL ()?? 12/25/2023 16:38 Vitamin B12 Level 560 pg/mL ()?? 12/25/2023 16:38 Folic Acid Level 5.6 ng/mL ()?? 12/25/2023 16:38 ?? ENDOCRINE/TUMOR MARKER TSH 3.16 uIU/mL ()?? 12/25/2023 16:38 ? FLUID STUDIES Hold Other SPECIMEN DISCARDED AFTER 1 WEEK ()?? 12/25/2023 16:38 ? HEME OTHER Hold Blue Top SPECIMEN DISCARDED AFTER 4 HOURS. ()?? 12/25/2023 16:38 ? MISC. CHEMISTRY Hold Gel Top SPECIMEN DISCARDED AFTER 1 WEEK ()?? 12/25/2023 16:38 ? UA/URINALYSIS Appear/Color, Urine YELLOW ()?? 12/25/2023 18:40 Clarity CLEAR (N)?? 12/25/2023 18:40 Specific [place], Urine 1.025 ()?? 12/25/2023 18:40 pH, Urine 5.0 ()?? 12/25/2023 18:40 Albumin, Urine NEGATIVE (N)?? 12/25/2023 18:40 Glucose, Urine NEGATIVE (N)?? 12/25/2023 18:40 Ketones, Urine NEGATIVE (N)?? 12/25/2023 18:40 Bilirubin, Urine NEGATIVE (N)?? 12/25/2023 18:40 Hemoglobin, Urine NEGATIVE (N)?? 12/25/2023 18:40 Nitrite, Urine NEGATIVE (N)?? 12/25/2023 18:40 Leukocyte, Urine NEGATIVE (N)?? 12/25/2023 18:40 Urobilinogen NORMAL mg/dL (N)?? 12/25/2023 18:40 Hold Urine Culture Testing available 48 hours from time of collection. ()?? 12/25/2023 18:40 ? URINE OTHER Est Creatinine Clearance 58.13 mL/min ()?? 12/26/2023 20:15 ? VIROLOGY Influenza A PCR NEGATIVE ()?? 12/25/2023 16:49 Influenza B PCR NEGATIVE ()?? 12/25/2023 16:49 RSV PCR NEGATIVE ()?? 12/25/2023 16:49 COVID-19 PCR Specimen Source NASAL ()?? 12/25/2023 16:49 COVID-19 PCR Result NEGATIVE ()?? 12/25/2023 16:49 ? Imaging(s) ?CT Head/Brain W/O Contrast ?? 12/27/2023 13:22??by Alex Ashley MD ?IMPRESSION: ?? No acute intracranial pathology. ? _35 minutes spent on discharge Patient Care team information Care Team Personnel Name: Susannah ([email or web address]) Tamara Position: [facility] phlebotomist lab assistant Member Role: Extruder Name: Alexx Stoner MD Position: S Physician - Primary Care Member Role: PCP Address: Address: [address] [place] [id number]- Name: Britt Reyes RN Position: S RN Member Role: Primary Care Nurse Name: Tia Devries RN Position: S RN Member Role: Primary Care Nurse Name: Suzie Johnson RN Position: S RN Member Role: Primary Care Nurse Care Team Related Persons Name: GURINDER MALONEUDY Address: home [address] [place] [address]
--- OUTSIDE RECORDS SUMMARY | 2024-03-01 20:51 | XMS_ITS | Continuity of Care Document ---
Author Organization [facility] Address [address] [place] [address]- Care Team Providers Care Director Of Event Marketing Name Role Phone Alexx Stoner MD Primary Care Physician Encounter [facility] Date(s): 12/11/23 - 01/13/[address] [id number] Attending Physician: Alexx Stoner MD Admitting Physician: [...] pneumococcal 13-valent vaccine 07/20/19 Given 1Result Comment: [id number] Medications Brain and Memory - [facility] Brain [facility], Refills 0, Maintenance, 07/07/22 9:25:00 EDT, Supply Start Date: 07/07/22 Status: Ordered FLUoxetine 20 mg oral tablet 2 tablet = 40 mg, By Mouth, Daily, # 120 tablet, 3 Refills, Maintenance, 09/01/23 13:59:00 EST, Tablet, [id number], Partial fill upon patient request if the [...] List Condition Confirmation Course Effective Dates Status [facility] Informant Alzheimer's dementia Confirmed Active [...] Personnel Name: Tamara Davalos ([employer]) Position: S metal precision machine assembler Member Role: Job Press Operator Name: Alexx Stoner MD Position: S Physician - Primary Care Member Role: PCP Address: Address: [address] [place] [id number]- Name: Britt Reyes RN Position: [facility] RN Member Role: Primary Care Nurse Name: Tia Devries RN Position: S RN Member Role: Primary Care Nurse Name: Suzie Johnson RN Position: [facility] RN Member Role: Primary Care Nurse Care Team Related Persons Name: OLEGARIO MALONE Address: home [address] [place] [address]
--- OUTSIDE RECORDS SUMMARY | 2024-03-01 20:51 | XMS_ITS | Continuity of Care Document ---
Author Organization [facility] Medicine Address [address] [place] [address]- Care Team Providers Care Integrated Circuit Ic Layout Designer Name Role Phone Alexx Stoner MD Primary Care Phys[place] [facility]11[place]23 - 01/10/[address] [id number] Allergies, Adverse Reactions, Alerts No Known Allergies Immunizations Given and Recorded Vaccine Date Status Refusal Reason influenza virus vaccine, inactivated 07/10/23 Give n influenza virus vaccine, inactivated 1 07/07/22 Gi mahsa influenza virus vaccine, inactivated 07/20/19 Give n SARS-CoV-2 (COVID-19) mRNA BNT-162b2 vac 01/10/21 Recorded SARS-CoV-2 (COVID-19) mRNA BNT-162b2 vac 12/20/20 Recorded pneumococcal 13-valent vaccine 07/20/19 Given 1Result Comment: [id number] Medications [facility], Refills 0, Maintenance, 07/07/22 9:25:00 EDT, Supply Start Date: 07/07/22 Status: Ordered FLUoxetine 20 mg oral tablet 2 tablet = 40 mg, By Mouth, Daily, # 120 tablet, 3 Refills, Maintenance, 09/01/23 13:59:00 EST, Tablet, [id number], Partial fill upon patient request if the [...] Personnel Name: Susannah (Avel) Tamara Position: S chemical engraver Member Role: Spring Up Supervisor Name: Alexx Stoner MD Position: S Physician - Primary Care Member Role: PCP Address: Address: [address] [place] [phone] [place] Name: Britt Reyes RN Position: S RN Member Role: Primary Care Nurse Name: Tia Devries RN Position: S RN Member Role: Primary Care Nurse Name: Suzie Johnson RN Position: [facility] RN Member Role: Primary Care Nurse Care Team Related Persons Name: OLEGARIO MALONE Address: home [address] [place] [address]
--- OUTSIDE RECORDS SUMMARY | 2024-03-01 20:51 | XMS_ITS | Continuity of Care Document ---
Author Organization [facility] Medicine Address [address] [place] [address]- Care Team Providers Care Portable Grinding Machine Operator Name Role Phone Alexx Stoner MD Primary Care Physician Encounter [facility] [place] Date(s): 12/25/23 - 01/24/[address] [address] Allergies, Adverse Reactions, Alerts No Known Allergies Immunizations Given and Recorded Vaccine Date Status Refusal Reason influenza virus vaccine, inactivated 07/10/23 Give n influenza virus vaccine, inactivated 1 07/07/22 Gi mahsa influenza virus vaccine, inactivated 07/20/19 Give n SARS-CoV-2 (COVID-19) mRNA BNT-162b2 vac 01/10/21 Recorded SARS-CoV-2 (COVID-19) mRNA BNT-162b2 vac 12/20/20 Recorded pneumococcal 13-valent vaccine 07/20/19 Given 1Result Comment: [id number] Medications [facility], Refills 0, Maintenance, 07/07/22 9:25:00 EDT, Supply Start Date: 07/07/22 Status: Ordered FLUoxetine 20 mg oral tablet 2 tablet = 40 mg, By Mouth, Daily, # 120 tablet, 3 Refills, Maintenance, 09/01/23 13:59:00 EST, Tablet, [facility] #[id number], Partial fill upon patient request if the [...] Personnel Name: Susannah (Avel) Tamara Position: S drafting detailer Member Role: Scientific Director Name: Alexx Stoner MD Position: S Physician - Primary Care Member Role: PCP Address: Address: [address] [place] [address]- [place] Name: Britt Reyes RN Position: S RN Member Role: Primary Care Nurse Name: Tia Devries RN Position: S RN Member Role: Primary Care Nurse Name: Suzie Johnson RN Position: [facility] RN Member Role: Primary Care Nurse Care Team Related Persons Name: OLEGARIO MALONE Address: home [address] [place] [address]
[2024-03-01 21:14] LABS: Lactic Acid 1.3 mmol/L (0.5-2.0)
--- NOTE | 2024-03-01 21:30 | PC.NURSE ---
pt admitted to unit just before 20:00. alert to self only. unable to admit patient to unit because patient could not be discharged from until the provider was no longer driving home. RN receiving patient unable to retrieve any electronic health information on patient or orders. RN from called this RN at 19:51 to give phone to phone verbal report. (Nirali Gamboa, MINERVA). Patient stable upon initial assessment, no S/S of stroke, patient afebrile. gait WNL, neuro WNL for patient. patient belongings brought to unit by staff, placed in the locked closest here on S4 by Segun Lead Tech. all belongings labeled by Lead Tech. Patient changed into a unit delores. placed on telemetry, NSR with frequent PACs. patient denies pain. , Laya Davis called patient's partner and left message informing family that patient was moved to med/tele unit. patient given IV access, tolerated well. IV antibiotics started/fluids started per order. Tolerated well. Patient takes meds whole with water without difficulty. ambulating independently, placed on high falls r/t IV pole, camera in room, sitter 1:1 in room r/t patient wandering. on psych unit patient was able to wander in and out of room, locked unit, on s4 this is not a locked unit and staff wants to keep patient safe at all times. patient educated installation and service technician sainz and unit rules/procedures. will need frequent redirection/education. patient pleasant, kind. behavior appropriate. all needs met, call sainz within reach. safety and comfort maintained.
[2024-03-01 21:38] VITALS: BMI 19.3
[2024-03-01] MEDS: Piperacillin Sodium/Tazobactam 4.5 GM in 0.9 % Sodium Chloride 100 ML IV (21:45)
[2024-03-01] MEDS: Donepezil HCl 10 MG TABLET PO (22:27)
[2024-03-01] MEDS: Memantine HCl 10 MG TABLET PO (22:28)
[2024-03-01] MEDS: vancomycin HCL 1,500 MG in 0.9 % Sodium Chloride 500 ML 333.33 MG IV (22:29)
[2024-03-01] MEDS: Enoxaparin Sodium 40 MG/0.4 ML SYRINGE SUBCUT (22:29)
[2024-03-01] MEDS: 0.9 % Sodium Chloride 1,000 ML 999 ML IV (22:32)
[2024-03-01 23:21] VITALS: BP 126/73; PULSE 82; RESP 16; TEMP 37.3; O2SAT 93
[2024-03-02 00:20] LABS: Appearance Urine Clear; Color Urine Yellow; Glucose Urine UA Negative (Negative); Leukocyte Esterase Urine Negative (Negative); Nitrite Urine Negative (Negative); Specific Gravity - Urine 1.025 (1.005-1.025); Urine Blood Negative (Negative); Urine Ketones Trace mg/dL (Negative); Urine Protein Trace mg/dL (Neg-Trace)
[2024-03-02] MEDS: Piperacillin Sodium/Tazobactam 4.5 GM in 0.9 % Sodium Chloride 100 ML IV ×4 (03:35→21:22)
[2024-03-02 04:00] VITALS: BP 119/55; PULSE 75; RESP 15; TEMP 37.4; O2SAT 95
[2024-03-02 06:56] LABS: MANUAL DIFF FLAG NO
[2024-03-02 07:11] LABS: Basophils Percent Auto 0.1 % (0-2); Eosinophils Percent Auto 0.1 % (0-4); Hematocrit 38.5 % (42.0-52.0); Hemoglobin 13.3 g/dl (14.0-18.0); Imm Gran Abs Auto 0.09 X10*3/uL (0.00-0.03); Imm Gran Pct Auto 0.7 % (0.0-0.4); Lymphocytes Percent Auto 7.7 % (20-40); Mean Corpuscular HGB Conc 34.5 g/dl (31.0-36.0); Mean Corpuscular Hemoglobin 32.2 pg (27.0-33.0); Mean Corpuscular Volume 93.2 fL (80.0-98.0); Mean Platelet Volume 11.1 fL (9.4-12.4); Monocytes Percent Auto 7.1 % (2-11); Neutrophils Absolute Auto 11.3 x10*3/uL (2.0-8.3); Neutrophils Percent Auto 84.3 % (45-73); Platelet Count 199 X10*3/uL (160-400); Red Blood Count 4.13 X10*6/uL (4.60-5.80); Red Cell Distribution Width 14.9 % (11.0-16.0); White Blood Count 13.5 X10*3/uL (4.8-10.8)
[2024-03-02 07:24] LABS: Anion Gap 13 (12-20); Blood Urea Nitrogen 24 mg/dL (9-16); Calcium 8.5 mg/dL (8.4-10.2); Carbon Dioxide 24 mmol/L (22-29); Chloride 105 mmol/L (96-108); Creatinine Clr Calc Pharmacy 49.1; Estimated Glomerular Filt Rate > 60; Glucose Random 127 mg/dL (60-115); Potassium 3.7 mmol/L (3.3-5.1); Sodium 138 mmol/L (135-145)
[2024-03-02 07:35] VITALS: BP 91/51; PULSE 86; RESP 18; TEMP 37; O2SAT 92
--- NOTE | 2024-03-02 08:30 | PHA.MEDREC ---
Pharmacy Consult ? Medication Reconciliation Pharmacy has completed the medication reconciliation. Patient transferred from ; all meds continues from floor with the exception of trazodone 25mg HS MRX1
--- NOTE | 2024-03-02 08:52 | MHC.CM.PN ---
Patient comes to the medical floor from [facility], who by documentation, has been conducting a LTC bed search in a variety of LOC facilities (i.e. RESIDENTIAL with Memory Units and SNFs); CM has reached out to [employer]/[facility] Palacios to determine if there are any accepting facilities or facilities that are following with possible interest in accepting Patient. CM awaits a copy of the HCP and phone number for Partner/POA/HCP/Yuliana from [facility] so CM can complete the IMM with her. CM has initiated and will follow for dc planning. PCP is Dr. Colon.
--- NOTE | 2024-03-02 09:12 | MHC.CM.PN ---
CM founds HCP/Yuliana's number, spoke with her at [phone], and addressed IMM with her (original will be mailed certified letter to Yuliana and a copy has been placed on the chart). Per Yuliana, she is filling out an application for future residency at [facility] and providing SHELTER with financial information/bank statements so SHELTER can determine first if Patient can afford to live there (then medical considerations/needs are reviewed) (5,000 dollars to get in and 8,000 dollars/month). CM will follow.
--- NOTE | 2024-03-02 10:20 | MHC.CM.PN ---
CM has reached out to [employer] to determine if there us a HCP on file for this Patient. CM will follow.
--- NOTE | 2024-03-02 11:01 | MHC.CM.PN ---
HCP received, uploaded to [employer] and placed on chart.
--- NOTE | 2024-03-02 11:16 | MHC.CM.PN ---
CM has left a detailed message for Son/listed primary HCP Agent/Demetrice @ [phone], requesting a return call to confirm if Son has relinquished his role as primary HCP and to confirm if Alternate HCP Agent/Yuliana @ [phone] should be contacted first. CM awaits a return call from Son.
[2024-03-02 11:20] VITALS: BP 109/66; PULSE 100; RESP 12; TEMP 36.8; O2SAT 93
[2024-03-02] MEDS: FLUoxetine HCl 20 MG CAPSULE PO (11:27)
[2024-03-02] MEDS: Memantine HCl 10 MG TABLET PO ×2 (11:28→21:22)
[2024-03-02] MEDS: Folic Acid 1 MG TABLET PO (11:28)
--- NOTE | 2024-03-02 11:56 | P.PNIM_ITS ---
Subjective Subjective Date of Service: 03/02/24 Interval History: seen and evalauted this morning more alert and interactive passed swallow eval on RA this morning sitter at bedside Review of Systems Review of Systems: Yes all other systems are reviewed and are negative Physical Exam 2 Vital Signs: Vital Signs: Last Vital Signs Temp 98.2 F 03/02/24 11:20 Pulse 100 03/02/24 11:20 Resp 12 03/02/24 11:20 BP 109/66 03/02/24 11:20 Pulse Ox 93 03/02/24 11:20 O2 Del Method Room Air 03/02/24 11:20 BMI result Body Mass Index 19.3 Const: Other: Constitutional : Awake, interactive, not in distress Neck : Normal inspection, Supple Cardiovascular : RRR, no JVP, no lower extremity edema Respiratory : bilateral air entry, basal fine crackles more on right side, no wheezes or rhonchi Gastrointestinal: soft, lax, Normal bowel sounds, Non tender Skin : Warm, Dry Neurological : Alert & oriented x1, No focal deficit Objective Data Active Medications Acetaminophen (Acetaminophen 325 Mg Tablet) 650 mg PO Q6H PRN PRN Reason: Headache/Pain Mild Scale (1-3) Al Hydroxide/Mg Hydroxide (Magnesium Hydrox/Alum Hydrox 30 Ml Oral.Susp) 30 ml PO Q6H PRN PRN Reason: Heartburn/Nausea Donepezil HCl (Donepezil Hcl 10 Mg Tablet) 10 mg PO BEDTIME [facility] Last Admin: 03/01/24 22:27 Dose: 10 mg Documented By: HOLLAND Enoxaparin Sodium (Enoxaparin Sodium 40 Mg/0.4 Ml Syringe) 40 mg SUBCUT Q24H [facility] Last Admin: 03/01/24 22:29 Dose: 40 mg Documented By: HOLLAND Fluoxetine HCl (Fluoxetine Hcl 20 Mg Capsule) 20 mg PO DAILY [facility] Last Admin: 03/02/24 11:27 Dose: 20 mg Documented By: PAIGE Folic Acid (Folic Acid 1 Mg Tablet) 1 mg PO DAILY [facility] Last Admin: 03/02/24 11:28 Dose: 1 mg Documented By: PAIGE Piperacillin Sod/Tazobactam (Sod 4.5 gm/ Sodium Chloride) 100 mls @ 200 mls/hr IV Q6H [facility] Last Admin: 03/02/24 11:50 Dose: 200 mls/hr Documented By: PAIGE Vancomycin HCl 1,250 mg/ (Sodium Chloride) 250 mls @ 166.667 mls/hr IV Q24H [facility] Magnesium Hydroxide (Milk Of Magnesia 30 Ml Oral.Susp) 30 ml PO DAILY PRN PRN Reason: Constipation Magnesium Hydroxide (Milk Of Magnesia 30 Ml Oral.Susp) 30 ml PO DAILY PRN PRN Reason: Constipation Memantine (Memantine Hcl 10 Mg Tablet) 10 mg PO BID [facility] Last Admin: 03/02/24 11:28 Dose: 10 mg Documented By: PAIGE Olanzapine (Olanzapine 2.5 Mg Tablet) 2.5 mg PO TID PRN PRN Reason: agitation Ondansetron HCl (Ondansetron Hcl 4 Mg/2 Ml Vial) 4 mg IVPUSH Q8H PRN PRN Reason: Nausea and Vomiting Pharmacy Consult (Consult Rx Vancomycin Dosing) 1 each MISCELLANE DAILY PRN PRN Reason: Consult order Sodium Chloride (0.9 % Sodium Chloride Flush 3 Ml Syringe) 3 ml IVFLUSH QSHIFT [facility] Last Admin: 03/02/24 01:02 Dose: Not Given Documented By: HOLLAND Non-Admin Reason: already done with IV placement Labs 03/02/24 06:18 03/02/24 06:18 Labs: Laboratory Results - last 24 hr 03/01/24 03/01/24 03/02/24 20:52 22:30 06:18 MCV 93.2 MCH 32.2 MCHC 34.5 RDW 14.9 Plt Count 199 MPV 11.1 Immature Gran % (Auto) 0.7 H Neut % (Auto) 84.3 H Lymph % (Auto) 7.7 L [place] % (Auto) 7.1 Eos % (Auto) 0.1 Baso % (Auto) 0.1 Lymph # (Auto) 1.0 L [place] # (Auto) 1.0 Eos # (Auto) 0.0 Baso # (Auto) 0.0 Abs Immat Gran (auto) 0.09 H Absolute Neuts (auto) 11.3 H Absolute Nucleated RBC 0.000 Nucleated RBC % (auto) 0.0 Anion Gap 13 Estim Creat Clear Calc 49.1 Estimated GFR > 60 Random Glucose 127 H Lactic Acid 1.3 Calcium 8.5 Urine Color Yellow Urine Appearance Clear Urine pH 7.0 Ur Specific [place] 1.025 Urine Protein Trace Urine Glucose (UA) Negative Urine Ketones Trace Urine Blood Negative Urine Nitrite Negative Ur Leukocyte Esterase Negative Assessment and Plan (1) Acute metabolic encephalopathy: Status: Acute (2) Pneumonia: Status: Acute (3) Sepsis: Status: Acute Plan 79-year-old male with 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 admitted to med/tele from for evaluation of altered mental status admitted for further evaluation and management of multifocal pneumonia with acute metabolic encephalopathy and sepsis # acute multifocal pneumonia with acute metabolic encephalopathy and sepsis improving head ct negative for acute findings CXR shows multiple infiltrates PATTERN DATA OPERATOR eval; start regular diet pending blood cultures IV vancomycin and Zosyn (initiated 03/01) strep pneumo antigen, Legionella antigen, sputum culture, and MRSA nasal swab pending care team consult once medically clear # epididymal cyst large 5 cm right-sided epididymal cyst obscuring visual of epididymis no signs of UTI on UA Pending urology consult # Alzheimer's dementia with behavioral disturbance continue mood stabilizers/antipsychotics as recommended by psychiatry DVT prophylaxis Lovenox Full code Patient requires inpatient stay overnight for management of acute multifocal pneumonia with acute metabolic encephalopathy and sepsis and will require IV antibiotics, close monitoring of mentation as well as monitoring of hemodynamics to prevent decompensation. Quality Stroke Does the patient have a stroke diagnosis?: No VTE Prior VTE?: No VTE Risk Level:: Medical - moderate - high VTE Device Contraindication: Treatment Not Indicated VTE Drug Contraindication: N/A - Med Ordered
[2024-03-02] MEDS: 0.9 % Sodium Chloride Flush 3 ML SYRINGE IVFLUSH ×3 (12:02→21:30)
[2024-03-02 12:13] VITALS: BMI 19.8
--- NOTE | 2024-03-02 12:20 | MHC.CLN ---
PT IS UNDER WT FOR HT WITH 82% IBW RANGE INDICATES MILDLY UNDER WT HOWEVER PT HAS BEEN SLOWLY GAINING WT SINCE PREVIOUS ADMISSION HX; BMI 19 BORDERLINE WNL DIET ADVANCED TO REGULAR-AWAITING FOOD PRODUCTS TESTER EVAL RECOMMEND ADDING ENSURE BID TO INCREASE KCALS SUPP TO PROVIDE 700KCALS, 40G PROTEIN MONITOR PO INTAKE AND ENCOURAGE SUPPLEMENT SEE ALSO FULL CLINICAL NUTRITION ASSESSMENT
--- NOTE | 2024-03-02 14:55 | MHC.SL.SWA ---
Risk of Aspiration Due to: Neurological Condition Reduced Cognition Weak Cough Dysphasia Diet Status: UPGRADE Liquid Consistency and Strategies for Safe Swallow: Liquid Intake Recommendation: Thin Liquid Intake Strategies: Small Sips No Straws Solid Food Consistency: Dietary Recommendations: Regular Oral Medication Intake: Whole with Puree Please contact the pharmacy regarding appropriate crushable or liquid drug formulations that are available whenever modified delivery is recommended. Compensatory Strategies and Precautions to be Taken for Safe Swallow: Sitting Upright (90 deg) No Straw Small Bites and Sips Alternate Liquids/Solids Rate of Ingestion Change Avoid Specific Foods Supervision While Eating and Drinking for Safe Swallow: Total Supervision (1:1) Foods to Avoid: dry foods Swallowing Recommended Treatments: Compens. Strategy Educat. Recommendation for Speech: Inpatient Speech Therapy Comment: Pt noted to present w/ involuntary lingual movement/twitching, twitching of R eye and below when in mouth open wide position, and weak volitional cough. Patient tolerated regular solids and thin liquids w/ LINE WORKER. Recommend UPGRADE to REGULAR solids and THIN liquids (NO STRAW) w/ 1-1 supervision at this time to monitor toleration of diet (cough, throat clear, desatting) d/t concern for aspiration. Ensure patient is seated upright for all PO. LINE WORKER to continue to follow to monitor toleration and further evaluation of dysphagia and use of straw. Hands And Dial Inspector Clinican/Clinical Fellow: No Supervisory Statement: I have reviewed and agree with the student/clinical fellow's documentation: N/A Speech Language Pathologist: Isabela Conroy M.A., [facility]-LINE WORKER
[2024-03-02 16:00] VITALS: BP 95/56; PULSE 80; RESP 12; TEMP 37.6; O2SAT 93
[2024-03-02 20:00] VITALS: BP 95/57; PULSE 65; RESP 18; TEMP 37.3; O2SAT 96
--- NOTE | 2024-03-02 20:31 | ECG_ITS ---
Test Reason : dizzy Blood Pressure : / mmHG Vent. Rate : 081 BPM Atrial Rate : 081 BPM P-R Int : 152 ms QRS Dur : 070 ms QT Int : 388 ms P-R-T Axes : 068 -12 027 degrees QTc Int : 450 ms Normal sinus rhythm Premature atrial complexes Abnormal ECG When compared with ECG of 01-MAR-2024 18:09, No significant change was found Referred By: Мария Lambert Electronically Signed By:EMILY CARLISLE
[2024-03-02] MEDS: Donepezil HCl 10 MG TABLET PO (21:22)
[2024-03-02] MEDS: Enoxaparin Sodium 40 MG/0.4 ML SYRINGE SUBCUT (21:22)
[2024-03-02] MEDS: vancomycin HCL 1,250 MG in 0.9 % Sodium Chloride 250 ML 166.67 MG IV (22:03)
[2024-03-03] VITALS (7 sets, daily range): BP systolic 101–124; BP diastolic 53–68; PULSE 66–80; RESP 15–20; TEMP 36.4–37.2; O2SAT 91–99
[2024-03-03] MEDS: Piperacillin Sodium/Tazobactam 4.5 GM in 0.9 % Sodium Chloride 100 ML IV ×4 (03:35→21:22)
[2024-03-03 05:43] LABS: Hematocrit 36.2 % (42.0-52.0); Hemoglobin 12.2 g/dl (14.0-18.0); Mean Corpuscular HGB Conc 33.7 g/dl (31.0-36.0); Mean Corpuscular Hemoglobin 31.7 pg (27.0-33.0); Mean Platelet Volume 10.7 fL (9.4-12.4); Platelet Count 196 X10*3/uL (160-400); Red Blood Count 3.85 X10*6/uL (4.60-5.80); Red Cell Distribution Width 14.9 % (11.0-16.0); White Blood Count 12.2 X10*3/uL (4.8-10.8)
[2024-03-03 06:02] LABS: Anion Gap 10 (12-20); Blood Urea Nitrogen 22 mg/dL (9-16); Calcium 8.1 mg/dL (8.4-10.2); Carbon Dioxide 28 mmol/L (22-29); Chloride 106 mmol/L (96-108); Creatinine Clr Calc Pharmacy 54.5; Estimated Glomerular Filt Rate > 60; Glucose Random 104 mg/dL (60-115); Potassium 3.6 mmol/L (3.3-5.1); Sodium 140 mmol/L (135-145)
--- NOTE | 2024-03-03 09:26 | MHC.SL.SWA ---
Speech Pathologist Impression: Risk of Aspiration Due to: Neurological Condition Reduced Cognition Weak Cough Dysphasia Diet Status: Recommend continue on Regular diet with THIN liquids, pills whole with puree (no change). Liquid Consistency and Strategies for Safe Swallow: Liquid Intake Recommendation: Thin Liquid Intake Strategies: Small Sips No Straws Solid Food Consistency: Dietary Recommendations: Regular Additional Modifications to Solid Foods: Oral Medication Intake: Whole with Puree Please contact the pharmacy regarding appropriate crushable or liquid drug formulations that are available whenever modified delivery is recommended. Compensatory Strategies and Precautions to be Taken for Safe Swallow: Sitting Upright (90 deg) No Straw Small Bites and Sips Alternate Liquids/Solids Rate of Ingestion Change Avoid Specific Foods Supervision While Eating and Drinking for Safe Swallow: Intermittent Supervision Foods to Avoid: dry foods Swallowing Recommended Treatments: Compens. Strategy Educat. Recommendation for Speech: Inpatient Speech Therapy Comment: Patient was seen at breakfast this morning for toleration of recommended diet of Regular with thin liquids. Breakfast tray was present and in front of him on a table, and he was seated upright in bed, independently feeding himself at onset of the visit. Patient was pleasant and conversant, commenting that he had to beg for a replacement of his meal as it initially came with just barfield and one piece of toast. His meal at time of visit was scrambled eggs, barfield, several slices of toast with jam and butter, cream of wheat and yogurt, with tea and juices. Patient ate various items independently, taking bites of barfield, eggs and toast, evidencing a mildly slow period of mastication, timely, though piecemeal swallow, evident residual in mouth which was cleared with repeat swallows. Patient was encouraged to take sips of liquid between bites of food to help manage residual of solids. Juices on tray were opened and put in cup, patient was observed taking sips of liquid with timely swallow from cup. No evidence of clinical signs of aspiration on thin liquids or regular solids at this visit, patient is tolerating current diet well. Recommend continue on Regular diet with THIN liquids, pills whole with puree (no change). Recommend 1 f/u given hx pna/aspiration. Frequency/Duration: Date Range for Service Req: Timeline to reassess: Consumer Education Specialist Clinican/Clinical Fellow: No Supervisory Statement: I have reviewed and agree with the student/clinical fellow's documentation: N/A Speech Language Pathologist: Krystin Avilez M.A., [facility] MACHINE FEEDER
[2024-03-03] MEDS: Memantine HCl 10 MG TABLET PO ×2 (10:37→21:16)
[2024-03-03] MEDS: Folic Acid 1 MG TABLET PO (10:37)
[2024-03-03] MEDS: FLUoxetine HCl 20 MG CAPSULE PO (10:37)
[2024-03-03] MEDS: 0.9 % Sodium Chloride Flush 3 ML SYRINGE IVFLUSH ×3 (10:37→21:23)
--- NOTE | 2024-03-03 11:47 | MHC.CM.PN ---
CM has left another voice message for Son/listed Primary HCP Agent/Tiera @ [phone], requesting a return call to confirm if he or Partner/listed Alternate HCP Agent/Yuliana is the primary contact/HCP Agent. CM awaits a return call.
--- NOTE | 2024-03-03 11:57 | HO.PM.IMPN ---
Subjective Subjective Date of Service: 03/03/24 Interval History: seen and evalauted this morning more alert and interactive tolerating diet feels well pending cultures Review of Systems Review of Systems: Yes all other systems are reviewed and are negative Physical Exam Vital Signs: Vital Signs: Last Vital Signs Temp 98.0 F 03/03/24 07:56 Pulse 66 03/03/24 07:56 Resp 19 03/03/24 07:56 BP 101/64 03/03/24 07:56 Pulse Ox 92 03/03/24 07:56 O2 Del Method Room Air 03/03/24 07:56 BMI result Body Mass Index 19.8 Const: Other: Constitutional : Awake, interactive, not in distress Neck : Normal inspection, Supple Cardiovascular : RRR, no JVP, no lower extremity edema Respiratory : bilateral air entry, basal fine crackles more on right side, no wheezes or rhonchi Gastrointestinal: soft, lax, Normal bowel sounds, Non tender Skin : Warm, Dry Neurological : Alert & oriented x1, No focal deficit Objective Data Active Medications Acetaminophen (Acetaminophen 325 Mg Tablet) 650 mg PO Q6H PRN PRN Reason: Headache/Pain Mild Scale (1-3) Al Hydroxide/Mg Hydroxide (Magnesium Hydrox/Alum Hydrox 30 Ml Oral.Susp) 30 ml PO Q6H PRN PRN Reason: Heartburn/Nausea Donepezil HCl (Donepezil Hcl 10 Mg Tablet) 10 mg PO BEDTIME [facility] Last Admin: 03/02/24 21:22 Dose: 10 mg Documented By: ALDAIR Enoxaparin Sodium (Enoxaparin Sodium 40 Mg/0.4 Ml Syringe) 40 mg SUBCUT Q24H [facility] Last Admin: 03/02/24 21:22 Dose: 40 mg Documented By: ALDAIR Fluoxetine HCl (Fluoxetine Hcl 20 Mg Capsule) 20 mg PO DAILY [facility] Last Admin: 03/03/24 10:37 Dose: 20 mg Documented By: KWAME Folic Acid (Folic Acid 1 Mg Tablet) 1 mg PO DAILY [facility] Last Admin: 03/03/24 10:37 Dose: 1 mg Documented By: KWAME Piperacillin Sod/Tazobactam (Sod 4.5 gm/ Sodium Chloride) 100 mls @ 200 mls/hr IV Q6H [facility] Last Infusion: 03/03/24 11:15 Dose: Infused Documented By: KWAME Vancomycin HCl 1,250 mg/ (Sodium Chloride) 250 mls @ 166.667 mls/hr IV Q24H [facility] Last Infusion: 03/02/24 23:48 Dose: Infused Documented By: DANA Magnesium Hydroxide (Milk Of Magnesia 30 Ml Oral.Susp) 30 ml PO DAILY PRN PRN Reason: Constipation Magnesium Hydroxide (Milk Of Magnesia 30 Ml Oral.Susp) 30 ml PO DAILY PRN PRN Reason: Constipation Memantine (Memantine Hcl 10 Mg Tablet) 10 mg PO BID [facility] Last Admin: 03/03/24 10:37 Dose: 10 mg Documented By: KWAME Olanzapine (Olanzapine 2.5 Mg Tablet) 2.5 mg PO TID PRN PRN Reason: agitation Ondansetron HCl (Ondansetron Hcl 4 Mg/2 Ml Vial) 4 mg IVPUSH Q8H PRN PRN Reason: Nausea and Vomiting Pharmacy Consult (Consult Rx Vancomycin Dosing) 1 each MISCELLANE DAILY PRN PRN Reason: Consult order Sodium Chloride (0.9 % Sodium Chloride Flush 3 Ml Syringe) 3 ml IVFLUSH QSHIFT [facility] Last Admin: 03/03/24 10:37 Dose: 3 ml Documented By: KWAME Labs 03/03/24 05:29 03/03/24 05:29 Labs: Laboratory Results - last 24 hr 03/03/24 05:29 MCV 94.0 MCH 31.7 MCHC 33.7 RDW 14.9 Plt Count 196 MPV 10.7 Absolute Nucleated RBC 0.000 Nucleated RBC % (auto) 0.0 Anion Gap 10 L Estim Creat Clear Calc 54.5 Estimated GFR > 60 Random Glucose 104 Calcium 8.1 L Microbiology Microbiology Results: Microbiology 03/01/24 20:53 Blood Culture - Preliminary Blood - Venous No growth after 24 hours. 03/01/24 20:53 Blood Culture - Preliminary Blood - Venous No growth after 24 hours. 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 admitted to med/tele from for evaluation of altered mental status admitted for further evaluation and management of multifocal pneumonia with acute metabolic encephalopathy and sepsis # acute multifocal pneumonia with acute metabolic encephalopathy and sepsis improved head ct negative for acute findings CXR shows multiple infiltrates OIL BURNER MECHANIC eval; start regular diet pending blood cultures Continue IV vancomycin and Zosyn (initiated 03/01) strep pneumo antigen, Legionella antigen, sputum culture, and MRSA nasal swab pending care team consult once medically clear PT evaluation Vancomycin trough # epididymal cyst large 5 cm right-sided epididymal cyst obscuring visual of epididymis no signs of UTI on UA Pending urology consult # Alzheimer's dementia with behavioral disturbance continue mood stabilizers/antipsychotics as recommended by psychiatry DVT prophylaxis Lovenox Full code Patient requires inpatient stay overnight for management of acute multifocal pneumonia with acute metabolic encephalopathy and sepsis and will require IV antibiotics, close monitoring of mentation pending final blood cultures Quality Stroke Does the patient have a stroke diagnosis?: No VTE Prior VTE?: No VTE Risk Level:: Medical - moderate - high VTE Device Contraindication: Treatment Not Indicated VTE Drug Contraindication: N/A - Med Ordered
--- NOTE | 2024-03-03 13:09 | P.CDIM_ITS ---
PROVIDER RESPONSE TEXT: To clarify, the appropriate diagnosis supported by the clinical indicators: Other (explain): 19.8 is healthy weight not underweight QUERY TEXT: PHYSICIAN'S DOCUMENTATION REQUEST Date of Query: 03/03/2024 07:21 AM EDT Patient Name: Marcial Helton Admit Date: 03/02/2024 Dear Madison Saavedra, A review of the medical record indicates additional documentation may be needed. Please review below and update the documentation accordingly. Clinical Indicators: Height: 5ft 11in Weight: 64.4kg BMI: 19.8 Other Clinical Notes Supporting Significance of the BMI: Clinical nutrition notes patient is underwei ght with BMI 19. Recommend adding Ensure BID to increase KCALS. If possible, please provide an associated diagnosis related to the abnormal BMI, such as: Underweight Weight loss Cachexia Anorexia Other (explain) Clinically unable to determine (explain) Thank you, Vernell Méndez, CCS, CDIS Use of terms such as suspected, likely, concern for, or probable (associated with a specific diagnosi s that is being evaluated, monitored, or treated as if it exists) are acceptable and can be coded in the inpatient se tting, when documented at the time of discharge. Please use your independent medical judgment in providing your response. THIS QUERY IS PART OF THE PERMANENT MEDICAL RECORD
--- NOTE | 2024-03-03 14:05 | MHC.CM.PN ---
This loan underwriter placed call to HCP/son Tiera to clarify his role and participation as HCP. He confirmed he still wants to be HCP, he had Olga as first contact due to his phone availability during the day. He states him and Olga are in agreement with their decisions in regards to patient. He would like to keep current plan with communication as Olga first. this loan underwriter communicated that any major changes in discharge planning we will be sure to contact him. Son also provided email as he is able to respond to this very quickly- [email or web address]
--- NOTE | 2024-03-03 16:55 | P.CNUR_ITS ---
History of Present Illness Consult details Consult date: 03/03/24 Reason for consult: other (Epididymal cysts) Narrative: Marcial is a 79-year-old male PMH significant for?Alzheimer's dementia with behavioral disturbances. Called to evaluate due to bilateral epididymal cysts. Patient states to me that he has had testicular cysts for a long time. He states he does not have testicular pain. On examination testicles are nontender. No signs of infection. Review of Systems 2 Review of Systems: 10 point review of systems negative othe r than stated in HPI [facility] Past Medical History Medical History Dementia Social History Social History Household Members: Significant Other Housing: Unknown / Unable to assess Patient Tobacco Use Status: Refuse Tobacco use screen Use of substances other than those prescribed or required for medical reasons: Unknown Currently Displaying Signs/Symptoms of Drug Intoxication Withdrawal: No Advance Directives: No Advance Directives Information Provided: No Do you have a plan to hurt others: No Plan Recently lost weight without trying: No How much weight loss: Not applicable Eating poorly because of decreased appetite: No Nutrition screen score: 0 Nutrition Risks: No Nutritional Risk Poor oral hygiene: Yes service: Yes Sexual orientation: Straight/Heterosexual Meds Allergies Allergy/AdvReac Type Severity Reaction Status Date / Time No Known Allergies Allergy Verified 01/26/24 13:17 Active Medications: Current Medications Acetaminophen (Acetaminophen 325 Mg Tablet) 650 mg PO Q6H PRN PRN Reason: Headache/Pain Mild Scale (1-3) Al Hydroxide/Mg Hydroxide (Magnesium Hydrox/Alum Hydrox 30 Ml Oral.Susp) 30 ml PO Q6H PRN PRN Reason: Heartburn/Nausea Donepezil HCl (Donepezil Hcl 10 Mg Tablet) 10 mg PO BEDTIME [facility] Last Admin: 03/02/24 21:22 Dose: 10 mg Enoxaparin Sodium (Enoxaparin Sodium 40 Mg/0.4 Ml Syringe) 40 mg SUBCUT Q24H [facility] Last Admin: 03/02/24 21:22 Dose: 40 mg Fluoxetine HCl (Fluoxetine Hcl 20 Mg Capsule) 20 mg PO DAILY [facility] Last Admin: 03/03/24 10:37 Dose: 20 mg Folic Acid (Folic Acid 1 Mg Tablet) 1 mg PO DAILY [facility] Last Admin: 03/03/24 10:37 Dose: 1 mg Piperacillin Sod/Tazobactam (Sod 4.5 gm/ Sodium Chloride) 100 mls @ 200 mls/hr IV Q6H [facility] Last Infusion: 03/03/24 16:45 Dose: Infused Vancomycin HCl 1,250 mg/ (Sodium Chloride) 250 mls @ 166.667 mls/hr IV Q24H [facility] Last Infusion: 03/02/24 23:48 Dose: Infused Magnesium Hydroxide (Milk Of Magnesia 30 Ml Oral.Susp) 30 ml PO DAILY PRN PRN Reason: Constipation Magnesium Hydroxide (Milk Of Magnesia 30 Ml Oral.Susp) 30 ml PO DAILY PRN PRN Reason: Constipation Memantine (Memantine Hcl 10 Mg Tablet) 10 mg PO BID [facility] Last Admin: 03/03/24 10:37 Dose: 10 mg Olanzapine (Olanzapine 2.5 Mg Tablet) 2.5 mg PO TID PRN PRN Reason: agitation Ondansetron HCl (Ondansetron Hcl 4 Mg/2 Ml Vial) 4 mg IVPUSH Q8H PRN PRN Reason: Nausea and Vomiting Pharmacy Consult (Consult Rx Vancomycin Dosing) 1 each MISCELLANE DAILY PRN PRN Reason: Consult order Sodium Chloride (0.9 % Sodium Chloride Flush 3 Ml Syringe) 3 ml IVFLUSH QSHIFT [facility] Last Admin: 03/03/24 16:03 Dose: 3 ml Home Medications ?Medication ?Instructions ?Recorded ?Confirmed ?Last Taken ?Type fluoxetine 40 mg PO DAILY 01/01/24 01/01/24 Unknown History folic acid 1 mg PO DAILY 01/01/24 01/01/24 Unknown History melatonin 3 mg PO BEDTIME 01/01/24 01/01/24 Unknown History Physical Exam 2 Vital Signs: Vital Signs: Last Vital Signs Temp 98.6 F 03/03/24 15:38 Pulse 71 03/03/24 15:38 Resp 18 03/03/24 15:38 BP 101/53 L 03/03/24 15:38 Pulse Ox 93 03/03/24 15:38 O2 Del Method Room Air 03/03/24 15:38 BMI result Body Mass Index 19.8 Const: General: healthy appearing, no acute distress and well developed O rientation/consciousness: patient oriented x3 HEENT: Head: Yes normocephalic and Yes atraumatic Eyes: Conjunctivae: conjunctivae normal Neck: Neck: Yes normal visual inspection Chest: Chest palpation & inspection: normal inspection of the chest Resp: Effort & Inspection: normal respiratory effort Cardio: Rate: regular rate GI: Inspection: Yes normal to inspection Palpation (GI): Soft to palpation : Other: Testicles are nontender, cystic structures along bilateral epididymis right greater than left. No signs of infection Penis: normal penis Neuro: General: patient oriented x3 Extrem: General: No pedal edema Psych: Appearance: grossly normal Affect: normal affect Results Labs 03/03/24 05:29 03/03/24 05:29 Labs: Abnormal lab results 03/03/24 Range/Units 05:29 WBC 12.2 H (4.8-10.8) X10*3/uL RBC 3.85 L (4.60-5.80) X10*6/uL Hgb 12.2 L (14.0-18.0) g/dl Hct 36.2 L (42.0-52.0) % Anion Gap 10 L (12-20) BUN 22 H (9-16) mg/dL Calcium 8.1 L (8.4-10.2) mg/dL Short CBC 03/03/24 Range/Units 05:29 WBC 12.2 H (4.8-10.8) X10*3/uL Hgb 12.2 L (14.0-18.0) g/dl Hct 36.2 L (42.0-52.0) % Plt Count 196 (160-400) X10*3/uL BMP 03/03/24 05:29 Sodium 140 Potassium 3.6 Chloride 106 Carbon Dioxide 28 BUN 22 H Creatinine 1.00 Calcium 8.1 L Urine 03/01/24 Range/Units 22:30 Urine Color Yellow Urine Appearance Clear Urine pH 7.0 (5.0-9.0) Ur Specific [place] 1.025 (1.005-1.025) Urine Protein Trace (Neg-Trace) mg/dL Urine Glucose (UA) Negative (Negative) mg/dL Imaging Additional studies: Date of Service: 02/27/24 EXAMINATION: US SCROTUM CLINICAL INFORMATION: Testicular pain. COMPARISON: None available. TECHNIQUE: A sonogram of the scrotum was performed assessing moreno-scale appearance and color Doppler flow. Spectral Doppler analysis of the arterial and venous flow were performed in the testes bilaterally. FINDINGS: RIGHT: Right testicle measures 5.0 x 2.5 x 4.5 cm, volume 29.6 mL. No focal testicular parenchymal lesions are visualized. Spectral Doppler analysis of the arterial and venous flow is normal in the right testis. 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 Punctate calcification in the right testicular parenchyma. Right epididymal head is enlarged secondary to a 5.9 x 4.1 x 4.2 cm cyst with septation and potential debris. No right hydrocele or varicocele is seen. Right epididymal Doppler flow is normal. LEFT: Left testicle measures 5.0 x 3.1 x 3.4 cm, volume 28.1 mL. No focal testicular parenchymal lesions are visualized. Spectral Doppler analysis of the arterial and venous flow is normal in the left testis. Slight tubular ectasia of the left rete tests. Left epididymal head is normal in size. Multiple left epididymal cysts the largest measuring up to 2.9 cm. No left hydrocele or varicocele is seen. Left epididymal Doppler flow is normal. IMPRESSION: 1. Bilateral testicular vascular flow identified. 2. 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 3. Right epididymal head is enlarged secondary to a 5.9 x 4.1 x 4.2 cm cyst with septation and potential debris. 4. Multiple left epididymal cysts the largest measuring up to 2.9 cm. Assessment and Plan (1) Epididymal cyst: Status: Acute Plan Scrotal exam nontender no signs of infection. Patient with no complaints and stated that he has had cysts in testicles for years. No follow-up indicated at this time. Procedures Date of Service Date of Service: 03/03/24
[2024-03-03] MEDS: Donepezil HCl 10 MG TABLET PO (21:16)
[2024-03-03 21:22] LABS: Vancomycin Random 4.9 mcg/mL (15-20)
[2024-03-03] MEDS: Enoxaparin Sodium 40 MG/0.4 ML SYRINGE SUBCUT (21:22)
--- NOTE | 2024-03-03 21:40 | HE.PHANOTE ---
Re Vancomycin Random = 4.9 on 03/03 @ 2100. Increasing to 1000mg q12h for a projected trough of ~16 and AUC of 493. Next trough to be drawn on 03/04 @ 2099.
[2024-03-03] MEDS: vancomycin HCL 1,000 MG in 0.9 % Sodium Chloride 250 ML 270 MG IV (22:02)
[2024-03-04 03:05] VITALS: BP 100/67; PULSE 70; RESP 20; TEMP 37.3; O2SAT 91
[2024-03-04] MEDS: Piperacillin Sodium/Tazobactam 4.5 GM in 0.9 % Sodium Chloride 100 ML IV ×2 (03:09→08:13)
[2024-03-04 07:39] LABS: Creatinine Clr Calc Pharmacy 64.1; Estimated Glomerular Filt Rate > 60
[2024-03-04 08:00] VITALS: BP 127/63; PULSE 75; RESP 20; TEMP 36.1; O2SAT 94
[2024-03-04] MEDS: 0.9 % Sodium Chloride Flush 3 ML SYRINGE IVFLUSH ×3 (08:12→19:58)
[2024-03-04] MEDS: Memantine HCl 10 MG TABLET PO ×2 (08:12→19:57)
[2024-03-04] MEDS: FLUoxetine HCl 20 MG CAPSULE PO (08:12)
[2024-03-04] MEDS: Folic Acid 1 MG TABLET PO (08:12)
[2024-03-04 09:18] VITALS: BP 100/67; PULSE 70; O2SAT 91
[2024-03-04 11:10] VITALS: BP 107/70; PULSE 71; RESP 16; TEMP 36; O2SAT 94
[2024-03-04 11:21] LABS: MRSA Nasal PCR NEGATIVE (Negative); SA Nasal PCR NEGATIVE (Negative)
--- NOTE | 2024-03-04 12:09 | HO.PM.IMPN ---
Subjective Subjective Date of Service: 03/04/24 Interval History: seen and evalauted this morning more alert and interactive , walking around in his room, in good mood tolerating diet negative cultures Review of Systems Review of Systems: Yes all other systems are reviewed and are negative Physical Exam Vital Signs: Vital Signs: Last Vital Signs Temp 96.8 F 03/04/24 11:10 Pulse 71 03/04/24 11:10 Resp 16 03/04/24 11:10 BP 107/70 03/04/24 11:10 Pulse Ox 94 03/04/24 11:10 O2 Del Method Room Air 03/04/24 11:10 BMI result Body Mass Index 19.8 Const: Other: Constitutional : Awake, interactive, not in distress Neck : Normal inspection, Supple Cardiovascular : RRR, no JVP, no lower extremity edema Respiratory : bilateral air entry, basal fine crackles more on right side, no wheezes or rhonchi Gastrointestinal: soft, lax, Normal bowel sounds, Non tender Skin : Warm, Dry Neurological : Alert & oriented x1, No focal deficit Objective Data Active Medications Acetaminophen (Acetaminophen 325 Mg Tablet) 650 mg PO Q6H PRN PRN Reason: Headache/Pain Mild Scale (1-3) Al Hydroxide/Mg Hydroxide (Magnesium Hydrox/Alum Hydrox 30 Ml Oral.Susp) 30 ml PO Q6H PRN PRN Reason: Heartburn/Nausea Donepezil HCl (Donepezil Hcl 10 Mg Tablet) 10 mg PO BEDTIME [facility] Last Admin: 03/03/24 21:16 Dose: 10 mg Documented By: TAMMY Enoxaparin Sodium (Enoxaparin Sodium 40 Mg/0.4 Ml Syringe) 40 mg SUBCUT Q24H [facility] Last Admin: 03/03/24 21:22 Dose: 40 mg Documented By: TAMMY Fluoxetine HCl (Fluoxetine Hcl 20 Mg Capsule) 20 mg PO DAILY [facility] Last Admin: 03/04/24 08:12 Dose: 20 mg Documented By: PAIGE Folic Acid (Folic Acid 1 Mg Tablet) 1 mg PO DAILY [facility] Last Admin: 03/04/24 08:12 Dose: 1 mg Documented By: PAIGE Piperacillin Sod/Tazobactam (Sod 4.5 gm/ Sodium Chloride) 100 mls @ 200 mls/hr IV Q6H [facility] Last Infusion: 03/04/24 12:05 Dose: Infused Documented By: PAIGE Vancomycin HCl 1,000 mg/ (Sodium Chloride) 270 mls @ 270 mls/hr IV Q12H [facility] Last Infusion: 03/03/24 23:25 Dose: Infused Documented By: TAMMY Magnesium Hydroxide (Milk Of Magnesia 30 Ml Oral.Susp) 30 ml PO DAILY PRN PRN Reason: Constipation Magnesium Hydroxide (Milk Of Magnesia 30 Ml Oral.Susp) 30 ml PO DAILY PRN PRN Reason: Constipation Memantine (Memantine Hcl 10 Mg Tablet) 10 mg PO BID [facility] Last Admin: 03/04/24 08:12 Dose: 10 mg Documented By: PAIGE Olanzapine (Olanzapine 2.5 Mg Tablet) 2.5 mg PO TID PRN PRN Reason: agitation Ondansetron HCl (Ondansetron Hcl 4 Mg/2 Ml Vial) 4 mg IVPUSH Q8H PRN PRN Reason: Nausea and Vomiting Pharmacy Consult (Consult Rx Vancomycin Dosing) 1 each MISCELLANE DAILY PRN PRN Reason: Consult order Sodium Chloride (0.9 % Sodium Chloride Flush 3 Ml Syringe) 3 ml IVFLUSH QSHIFT [facility] Last Admin: 03/04/24 08:12 Dose: 3 ml Documented By: PAIGE Labs 03/03/24 05:29 03/04/24 06:34 Labs: Laboratory Results - last 24 hr 03/03/24 03/03/24 03/04/24 21:00 23:18 06:34 Hold Purple Top SEE NOTE Estim Creat Clear Calc 64.1 Estimated GFR > 60 Nasal Screen MRSA (PCR) NEGATIVE Nasal S. aureus Screen NEGATIVE Nasal MRSA/S.aureus Interp SEE NOTE Random Vancomycin 4.9 L Microbiology Microbiology Results: Microbiology 03/01/24 20:53 Blood Culture - Preliminary Blood - Venous No growth after 48 hours. 03/01/24 20:53 Blood Culture - Preliminary Blood - Venous No growth after 48 hours. Assessment and Plan (1) Epididymal cyst: Status: Acute (2) Sepsis: Status: Acute (3) Acute metabolic encephalopathy: Status: Acute (4) Pneumonia: Status: Acute Plan 79-year-old male with 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 admitted to med/tele from for evaluation of altered mental status admitted for further evaluation and management of multifocal pneumonia with acute metabolic encephalopathy and sepsis # acute multifocal pneumonia with acute metabolic encephalopathy and sepsis improved back to baseline head ct negative for acute findings, CXR showed multiple infiltrates suggestive of PNA DIGITAL ADVERTISING ANALYST eval; start regular diet Negative blood cultures DC IV vancomycin and Zosyn (initiated 03/01), Start PO Azithromycin and Ceftin strep pneumo antigen, Legionella antigen pending care team consulted, Psych team do not think he needs to go back to psych floor, to discuss with CM PT rec outpatient resources # epididymal cyst large 5 cm right-sided epididymal cyst obscuring visual of epididymis no signs of UTI on UA urology consult, no need to intervene now or later, no need to follow up # Alzheimer's dementia with behavioral disturbance continue mood stabilizers/antipsychotics as recommended by psychiatry DVT prophylaxis Lovenox Full code Patient requires inpatient stay overnight for management of acute multifocal pneumonia on antibiotics, close monitoring of mentation pending safe discharge plan Quality Stroke Does the patient have a stroke diagnosis?: No VTE Prior VTE?: No VTE Risk Level:: Medical - moderate - high VTE Device Contraindication: Treatment Not Indicated VTE Drug Contraindication: N/A - Med Ordered
--- NOTE | 2024-03-04 12:10 | MHC.CARE ---
patient seen by CARE team, following assessment and conversation with psychiatry, patient is appropriate for case management
[2024-03-04] MEDS: vancomycin HCL 1,000 MG in 0.9 % Sodium Chloride 250 ML 270 MG IV (12:25)
--- NOTE | 2024-03-04 13:23 | MHC.CM.PN ---
EMR reviewed and per MD rounds, pt is medically cleared for discharge, but unable due to inability to find placement for pt. [facility] currently interested/following, but no current bed offers.
--- NOTE | 2024-03-04 13:30 | MHC.SL.SWA ---
Speech Pathologist Impression: WFL Risk of Aspiration Due to: Neurological Condition Reduced Cognition Weak Cough Dysphasia Diet Status: Recommend continue on Regular diet with THIN liquids, pills whole with puree (no change). Liquid Consistency and Strategies for Safe Swallow: Liquid Intake Recommendation: Thin Liquid Intake Strategies: Small Sips No Straws Solid Food Consistency: Dietary Recommendations: Regular Additional Modifications to Solid Foods: Further ST intervention no longer warranted at this level of care. Please re-refer with any changes or further concern. Oral Medication Intake: Whole with Puree Please contact the pharmacy regarding appropriate crushable or liquid drug formulations that are available whenever modified delivery is recommended. Compensatory Strategies and Precautions to be Taken for Safe Swallow: Sitting Upright (90 deg) No Straw Small Bites and Sips Alternate Liquids/Solids Rate of Ingestion Change Avoid Specific Foods Supervision While Eating and Drinking for Safe Swallow: Intermittent Supervision Foods to Avoid: dry foods Swallowing Recommended Treatments: Compens. Strategy Educat. Recommendation for Speech: D/C Sap Architect Clinican/Clinical Fellow: No Supervisory Statement: I have reviewed and agree with the student/clinical fellow's documentation: N/A Speech Language Pathologist: Flavia Crowley M.A., CCC-BILINGUAL LOAN PROCESSOR
[2024-03-04] MEDS: cefuroxime axetiL 500 MG TABLET PO ×2 (13:42→19:57)
[2024-03-04] MEDS: Azithromycin 500 MG TABLET PO (13:42)
[2024-03-04 15:33] VITALS: BP 118/67; PULSE 62; RESP 20; TEMP 36.1; O2SAT 95
[2024-03-04 19:44] VITALS: BP 128/61; PULSE 73; RESP 16; TEMP 36.4; O2SAT 93
[2024-03-04] MEDS: Donepezil HCl 10 MG TABLET PO (19:57)
[2024-03-04] MEDS: Enoxaparin Sodium 40 MG/0.4 ML SYRINGE SUBCUT (19:57)
[2024-03-04 21:30] LABS: Vancomycin Random 10.8 mcg/mL (15-20)
[2024-03-05 04:00] VITALS: BP 117/57; PULSE 79; RESP 16; TEMP 36.9; O2SAT 93
[2024-03-05 06:49] LABS: Creatinine Clr Calc Pharmacy 67.3; Estimated Glomerular Filt Rate > 60
[2024-03-05 08:00] VITALS: BP 133/68; PULSE 65; RESP 20; TEMP 37.2; O2SAT 93
[2024-03-05 09:01] LABS: Procalcitonin 0.26 ng/mL
[2024-03-05] MEDS: cefuroxime axetiL 500 MG TABLET PO ×2 (10:03→21:18)
[2024-03-05] MEDS: FLUoxetine HCl 20 MG CAPSULE PO (10:03)
[2024-03-05] MEDS: 0.9 % Sodium Chloride Flush 3 ML SYRINGE IVFLUSH ×3 (10:03→21:20)
[2024-03-05] MEDS: Folic Acid 1 MG TABLET PO (10:03)
[2024-03-05] MEDS: Memantine HCl 10 MG TABLET PO ×2 (10:06→21:18)
--- NOTE | 2024-03-05 10:41 | P.PNIM_ITS ---
Subjective Subjective Date of Service: 03/05/24 Interval History: no complaints; denies cough or dyspnea; off oxygen Review of Systems Review of Systems: Yes all other systems are reviewed and are negative Physical Exam 2 Vital Signs: Vital Signs: Last Vital Signs Temp 98.9 F 03/05/24 08:00 Pulse 65 03/05/24 08:00 Resp 20 03/05/24 08:00 BP 133/68 03/05/24 08:00 Pulse Ox 93 03/05/24 08:00 O2 Del Method Room Air 03/05/24 08:00 BMI result Body Mass Index 19.8 Gen: in no acute distress HEENT: sclera anicteric, moist mucus membranes Neck: supple Lungs: diminished Heart: regular rate and rhythm, no murmurs Abd: soft, non-tender, non-distended Ext: no edema Skin: warm/well-perfused Neuro: alert and oriented to self only Psych: restricted affect Objective Data Active Medications Acetaminophen (Acetaminophen 325 Mg Tablet) 650 mg PO Q6H PRN PRN Reason: Headache/Pain Mild Scale (1-3) Al Hydroxide/Mg Hydroxide (Magnesium Hydrox/Alum Hydrox 30 Ml Oral.Susp) 30 ml PO Q6H PRN PRN Reason: Heartburn/Nausea Azithromycin (Azithromycin 500 Mg Tablet) 500 mg PO Q24H [facility] Stop: 03/08/24 23:59 Last Admin: 03/04/24 13:42 Dose: 500 mg Documented By: ALLAN Cefuroxime Axetil (Cefuroxime Axetil 500 Mg Tablet) 500 mg PO BID [facility] Stop: 03/08/24 23:59 Last Admin: 03/05/24 10:03 Dose: 500 mg Documented By: PAIGE Donepezil HCl (Donepezil Hcl 10 Mg Tablet) 10 mg PO BEDTIME [facility] Last Admin: 03/04/24 19:57 Dose: 10 mg Documented By: TAMMY Enoxaparin Sodium (Enoxaparin Sodium 40 Mg/0.4 Ml Syringe) 40 mg SUBCUT Q24H [facility] Last Admin: 03/04/24 19:57 Dose: 40 mg Documented By: TAMMY Fluoxetine HCl (Fluoxetine Hcl 20 Mg Capsule) 20 mg PO DAILY [facility] Last Admin: 03/05/24 10:03 Dose: 20 mg Documented By: PAIGE Folic Acid (Folic Acid 1 Mg Tablet) 1 mg PO DAILY [facility] Last Admin: 03/05/24 10:03 Dose: 1 mg Documented By: PAIGE Magnesium Hydroxide (Milk Of Magnesia 30 Ml Oral.Susp) 30 ml PO DAILY PRN PRN Reason: Constipation Magnesium Hydroxide (Milk Of Magnesia 30 Ml Oral.Susp) 30 ml PO DAILY PRN PRN Reason: Constipation Memantine (Memantine Hcl 10 Mg Tablet) 10 mg PO BID [facility] Last Admin: 03/05/24 10:06 Dose: 10 mg Documented By: PAIGE Olanzapine (Olanzapine 2.5 Mg Tablet) 2.5 mg PO TID PRN PRN Reason: agitation Ondansetron HCl (Ondansetron Hcl 4 Mg/2 Ml Vial) 4 mg IVPUSH Q8H PRN PRN Reason: Nausea and Vomiting Sodium Chloride (0.9 % Sodium Chloride Flush 3 Ml Syringe) 3 ml IVFLUSH QSHIFT [facility] Last Admin: 03/05/24 10:03 Dose: 3 ml Documented By: PAIGE Labs 03/03/24 05:29 03/05/24 06:00 Labs: Laboratory Results - last 24 hr 03/03/24 03/04/24 03/05/24 23:18 21:05 06:00 Hold Purple Top SEE NOTE Estim Creat Clear Calc 67.3 Estimated GFR > 60 Procalcitonin 0.26 Nasal Screen MRSA (PCR) NEGATIVE Nasal S. aureus Screen NEGATIVE Nasal MRSA/S.aureus Interp SEE NOTE Random Vancomycin 10.8 L Assessment and Plan (1) Epididymal cyst: Status: Acute (2) Sepsis: Status: Acute (3) Acute metabolic encephalopathy: Status: Acute (4) Pneumonia: Status: Acute Plan 79yo M with Alzheimer's dementia + behavioral disturbance including sexual inappropriateness admitted to telemetry from for AMS, found to have sepsis from multifocal PNA pt on hospitalist service since 03/01/24 pt originally admitted to [facility] 01/02/24 acute sepsis with septic encephalopathy due to multifocal PNA - mental status back at baseline, seen by SOLDER DEPOSIT OPERATOR and regular diet ordered - BCx negative, MRSA swab negative, given vanco + pip-shayne 03/01-03/04, finish ABX course with cefuroxime + azithro 03/04-03/08 for total 7d; urinary antigens for Legionella and pneumococcus pending 5cm epididymal cyst on R scrotum - per Urology no intervention or further workup needed Alzheimer's dementia with behavioral disturbance - continue fluoxetine, donepezil, memantine, prn olanzapine VTE ppx - LMWH dispo - Psychiatry will not take pt back stating that no further inpt psychiatric care is necessary so now he becomes a LTC placement issue In my clinical judgment, the patient requires continued inpatient hospitalization for the following reasons: placement, Psychiatry not taking the pt back Total time managing care of this patient today: 35 minutes. Quality Stroke Does the patient have a stroke diagnosis?: No VTE Prior VTE?: No VTE Risk Level:: Medical - moderate - high VTE Device Contraindication: Treatment Not Indicated VTE Drug Contraindication: N/A - Med Ordered
[2024-03-05] MEDS: Azithromycin 500 MG TABLET PO (13:41)
[2024-03-05 15:33] VITALS: BP 108/73; PULSE 69; RESP 18; TEMP 37.1; O2SAT 94
[2024-03-05 19:01] VITALS: BP 119/62; PULSE 84; RESP 18; TEMP 36.5; O2SAT 95
[2024-03-05] MEDS: Donepezil HCl 10 MG TABLET PO (21:18)
[2024-03-05] MEDS: Enoxaparin Sodium 40 MG/0.4 ML SYRINGE SUBCUT (21:18)
[2024-03-05 22:48] LABS: Strep Pneumo Ag urine Not Detected (Not Detected)
[2024-03-06 04:00] VITALS: BP 116/74; PULSE 76; RESP 18; TEMP 36; O2SAT 95
[2024-03-06 08:00] VITALS: BP 122/73; PULSE 60; RESP 18; TEMP 36.2; O2SAT 94
[2024-03-06] MEDS: 0.9 % Sodium Chloride Flush 3 ML SYRINGE IVFLUSH ×3 (09:41→22:37)
[2024-03-06] MEDS: cefuroxime axetiL 500 MG TABLET PO ×2 (09:41→22:35)
[2024-03-06] MEDS: FLUoxetine HCl 20 MG CAPSULE PO (09:42)
[2024-03-06] MEDS: Folic Acid 1 MG TABLET PO (09:42)
[2024-03-06] MEDS: Memantine HCl 10 MG TABLET PO ×2 (09:42→22:35)
--- NOTE | 2024-03-06 10:37 | P.PNIM_ITS ---
Subjective Subjective Date of Service: 03/06/24 Interval History: no complaints no dyspnea or cough no fever Review of Systems Review of Systems: Yes all other systems are reviewed and are negative Physical Exam 2 Vital Signs: Vital Signs: Last Vital Signs Temp 97.1 F 03/06/24 08:00 Pulse 60 03/06/24 08:00 Resp 18 03/06/24 08:00 BP 122/73 03/06/24 08:00 Pulse Ox 94 03/06/24 08:00 O2 Del Method Room Air 03/06/24 08:00 BMI result Body Mass Index 19.8 Gen: in no acute distress HEENT: sclera anicteric, moist mucus membranes Neck: supple Lungs: diminished Heart: regular rate and rhythm, no murmurs Abd: soft, non-tender, non-distended Ext: no edema Skin: warm/well-perfused Neuro: alert and oriented to self only Psych: restricted affect Objective Data Active Medications Acetaminophen (Acetaminophen 325 Mg Tablet) 650 mg PO Q6H PRN PRN Reason: Headache/Pain Mild Scale (1-3) Al Hydroxide/Mg Hydroxide (Magnesium Hydrox/Alum Hydrox 30 Ml Oral.Susp) 30 ml PO Q6H PRN PRN Reason: Heartburn/Nausea Azithromycin (Azithromycin 500 Mg Tablet) 500 mg PO Q24H [facility] Stop: 03/08/24 23:59 Last Admin: 03/05/24 13:41 Dose: 500 mg Documented By: PAIGE Cefuroxime Axetil (Cefuroxime Axetil 500 Mg Tablet) 500 mg PO BID [facility] Stop: 03/08/24 23:59 Last Admin: 03/06/24 09:41 Dose: 500 mg Documented By: PAIGE Donepezil HCl (Donepezil Hcl 10 Mg Tablet) 10 mg PO BEDTIME [facility] Last Admin: 03/05/24 21:18 Dose: 10 mg Documented By: ALDAIR Enoxaparin Sodium (Enoxaparin Sodium 40 Mg/0.4 Ml Syringe) 40 mg SUBCUT Q24H [facility] Last Admin: 03/05/24 21:18 Dose: 40 mg Documented By: ALDAIR Fluoxetine HCl (Fluoxetine Hcl 20 Mg Capsule) 20 mg PO DAILY [facility] Last Admin: 03/06/24 09:42 Dose: 20 mg Documented By: PAIGE Folic Acid (Folic Acid 1 Mg Tablet) 1 mg PO DAILY [facility] Last Admin: 03/06/24 09:42 Dose: 1 mg Documented By: PAIGE Magnesium Hydroxide (Milk Of Magnesia 30 Ml Oral.Susp) 30 ml PO DAILY PRN PRN Reason: Constipation Magnesium Hydroxide (Milk Of Magnesia 30 Ml Oral.Susp) 30 ml PO DAILY PRN PRN Reason: Constipation Memantine (Memantine Hcl 10 Mg Tablet) 10 mg PO BID [facility] Last Admin: 03/06/24 09:42 Dose: 10 mg Documented By: PAIGE Olanzapine (Olanzapine 2.5 Mg Tablet) 2.5 mg PO TID PRN PRN Reason: agitation Ondansetron HCl (Ondansetron Hcl 4 Mg/2 Ml Vial) 4 mg IVPUSH Q8H PRN PRN Reason: Nausea and Vomiting Sodium Chloride (0.9 % Sodium Chloride Flush 3 Ml Syringe) 3 ml IVFLUSH QSHIFT [facility] Last Admin: 03/06/24 09:41 Dose: 3 ml Documented By: PAIGE Labs 03/03/24 05:29 03/05/24 06:00 Labs: Laboratory Results - last 24 hr 03/01/24 22:30 Ur Strep pneumoniae Ag Not Detected Assessment and Plan (1) Epididymal cyst: Status: Acute (2) Sepsis: Status: Acute (3) Acute metabolic encephalopathy: Status: Acute (4) Pneumonia: Status: Acute Plan 79yo M with Alzheimer's dementia + behavioral admitted to telemetry from for AMS, found to have sepsis from multifocal PNA pt on hospitalist service since 03/01/24 [facility] but then sent to for sexual inappropriateness acute sepsis with septic encephalopathy due to multifocal PNA - mental status back at baseline; seen by STRAWBERRY GROWER and regular diet ordered - BCx negative, MRSA swab negative, given vanco + pip-shayne 03/01-03/04, finishing ABX course with cefuroxime + azithro 03/04-03/08 for total of 7d; urinary antigen for Legionella pending 5cm epididymal cyst on R scrotum - per Urology no intervention or further workup needed Alzheimer's dementia with behavioral disturbance - continue fluoxetine, donepezil, memantine, prn olanzapine VTE ppx - LMWH dispo - Psychiatry will not take pt back stating that no further inpt psychiatric care is necessary so now he becomes a LTC placement issue. May downgrade to M/S In my clinical judgment, the patient requires continued inpatient hospitalization for the following reasons: placement, Psychiatry not taking the pt back Total time managing care of this patient today: 25 minutes. Quality Stroke Does the patient have a stroke diagnosis?: No VTE Prior VTE?: No VTE Risk Level:: Medical - moderate - high VTE Device Contraindication: Treatment Not Indicated VTE Drug Contraindication: N/A - Med Ordered
[2024-03-06] MEDS: Azithromycin 500 MG TABLET PO (12:47)
[2024-03-06 13:24] VITALS: BP 123/57; PULSE 87; RESP 18; TEMP 36.6; O2SAT 93
[2024-03-06 16:00] VITALS: BP 100/57; PULSE 70; RESP 18; TEMP 36.1; O2SAT 97
[2024-03-06 20:00] VITALS: BP 123/60; PULSE 75; RESP 18; TEMP 36.7; O2SAT 95
[2024-03-06] MEDS: Donepezil HCl 10 MG TABLET PO (22:35)
[2024-03-06] MEDS: Enoxaparin Sodium 40 MG/0.4 ML SYRINGE SUBCUT (22:35)
[2024-03-07 00:19] VITALS: BP 119/72; PULSE 62; RESP 16; TEMP 36.8; O2SAT 93
[2024-03-07 03:46] VITALS: BP 113/68; PULSE 66; RESP 16; TEMP 36.3; O2SAT 94
[2024-03-07 06:48] LABS: Legionella Ag Urine Not Detected (Not Detected)
[2024-03-07] MEDS: 0.9 % Sodium Chloride Flush 3 ML SYRINGE IVFLUSH (07:43)
[2024-03-07] MEDS: FLUoxetine HCl 20 MG CAPSULE PO (07:43)
[2024-03-07] MEDS: cefuroxime axetiL 500 MG TABLET PO ×2 (07:43→20:21)
[2024-03-07] MEDS: Memantine HCl 10 MG TABLET PO ×2 (07:43→20:21)
[2024-03-07] MEDS: Folic Acid 1 MG TABLET PO (07:43)
[2024-03-07 08:00] VITALS: BP 112/62; PULSE 79; RESP 20; TEMP 36.4; O2SAT 94
--- NOTE | 2024-03-07 10:26 | MHC.CM.PN ---
LTC SNF bed search is ongoing; [facility] is following. CM will continue to follow.
--- NOTE | 2024-03-07 10:53 | P.PNIM_ITS ---
Subjective Subjective Date of Service: 03/07/24 Interval History: no complaints no dyspnea or cough no fever Review of Systems Review of Systems: Yes all other systems are reviewed and are negative Physical Exam 2 Vital Signs: Vital Signs: Last Vital Signs Temp 97.6 F 03/07/24 08:00 Pulse 79 03/07/24 08:00 Resp 20 03/07/24 08:00 BP 112/62 03/07/24 08:00 Pulse Ox 94 03/07/24 08:00 O2 Del Method Room Air 03/07/24 08:00 BMI result Body Mass Index 19.8 Gen: in no acute distress HEENT: sclera anicteric, moist mucus membranes Neck: supple Lungs: diminished Heart: regular rate and rhythm, no murmurs Abd: soft, non-tender, non-distended Ext: no edema Skin: warm/well-perfused Neuro: alert and oriented to self only Psych: restricted affect Objective Data Active Medications Acetaminophen (Acetaminophen 325 Mg Tablet) 650 mg PO Q6H PRN PRN Reason: Headache/Pain Mild Scale (1-3) Al Hydroxide/Mg Hydroxide (Magnesium Hydrox/Alum Hydrox 30 Ml Oral.Susp) 30 ml PO Q6H PRN PRN Reason: Heartburn/Nausea Azithromycin (Azithromycin 500 Mg Tablet) 500 mg PO Q24H [facility] Stop: 03/08/24 23:59 Last Admin: 03/06/24 12:47 Dose: 500 mg Documented By: PAIGE Cefuroxime Axetil (Cefuroxime Axetil 500 Mg Tablet) 500 mg PO BID [facility] Stop: 03/08/24 23:59 Last Admin: 03/07/24 07:43 Dose: 500 mg Documented By: ZOHREH Donepezil HCl (Donepezil Hcl 10 Mg Tablet) 10 mg PO BEDTIME [facility] Last Admin: 03/06/24 22:35 Dose: 10 mg Documented By: XU Enoxaparin Sodium (Enoxaparin Sodium 40 Mg/0.4 Ml Syringe) 40 mg SUBCUT Q24H [facility] Last Admin: 03/06/24 22:35 Dose: 40 mg Documented By: XU Fluoxetine HCl (Fluoxetine Hcl 20 Mg Capsule) 20 mg PO DAILY [facility] Last Admin: 03/07/24 07:43 Dose: 20 mg Documented By: ZOHREH Folic Acid (Folic Acid 1 Mg Tablet) 1 mg PO DAILY [facility] Last Admin: 03/07/24 07:43 Dose: 1 mg Documented By: ZOHREH Magnesium Hydroxide (Milk Of Magnesia 30 Ml Oral.Susp) 30 ml PO DAILY PRN PRN Reason: Constipation Magnesium Hydroxide (Milk Of Magnesia 30 Ml Oral.Susp) 30 ml PO DAILY PRN PRN Reason: Constipation Memantine (Memantine Hcl 10 Mg Tablet) 10 mg PO BID [facility] Last Admin: 03/07/24 07:43 Dose: 10 mg Documented By: ZOHREH Olanzapine (Olanzapine 2.5 Mg Tablet) 2.5 mg PO TID PRN PRN Reason: agitation Ondansetron HCl (Ondansetron Hcl 4 Mg/2 Ml Vial) 4 mg IVPUSH Q8H PRN PRN Reason: Nausea and Vomiting Sodium Chloride (0.9 % Sodium Chloride Flush 3 Ml Syringe) 3 ml IVFLUSH QSHIFT [facility] Last Admin: 03/07/24 07:43 Dose: 3 ml Documented By: ZOHREH Labs 03/03/24 05:29 03/05/24 06:00 Labs: Laboratory Results - last 24 hr 03/01/24 22:30 Ur L.pneumophila Ag Not Detected Microbiology Microbiology Results: Microbiology 03/01/24 20:53 Blood Culture - Final Blood - Venous No growth after 5 days. 03/01/24 20:53 Blood Culture - Final Blood - Venous No growth after 5 days. Assessment and Plan (1) Epididymal cyst: Status: Acute (2) Sepsis: Status: Acute (3) Acute metabolic encephalopathy: Status: Acute (4) Pneumonia: Status: Acute Plan 79yo M with Alzheimer's dementia + behavioral admitted to telemetry from for AMS, found to have sepsis from multifocal PNA pt on hospitalist service since 03/01/24 pt originally admitted to [facility] 01/02/24 but then sent to for sexual inappropriateness acute sepsis with septic encephalopathy due to multifocal PNA - mental status back at baseline; seen by MARINE WELDER and regular diet ordered - BCx negative, MRSA swab negative, given vanco + pip-shayne 03/01-03/04, finishing ABX course with cefuroxime + azithro 03/04-03/08 for total of 7d; urinary antigen for Legionella pending 5cm epididymal cyst on R scrotum - per Urology no intervention or further workup needed Alzheimer's dementia with behavioral disturbance - continue fluoxetine, donepezil, memantine, prn olanzapine VTE ppx - LMWH dispo - Psychiatry will not take pt back stating that no further inpt psychiatric care is necessary so now he becomes a LTC placement issue. May downgrade to M/S In my clinical judgment, the patient requires continued inpatient hospitalization for the following reasons: placement, Psychiatry not taking the pt back Total time managing care of this patient today: 25 minutes. Quality Stroke Does the patient have a stroke diagnosis?: No VTE Prior VTE?: No VTE Risk Level:: Medical - moderate - high VTE Device Contraindication: Treatment Not Indicated VTE Drug Contraindication: N/A - Med Ordered
[2024-03-07] MEDS: Azithromycin 500 MG TABLET PO (12:09)
--- NOTE | 2024-03-07 12:46 | MHC.CM.PN ---
CM met with Patient briefly and with his Partner/HCP/Yuliana. Per Partner, All requested documents and fees have been paid/submitted to [facility] and Patient is second on the waiting list to be considered for admission. Per Partner, she is actively trying to sell Patient's house, which would provide him enough income to pay for [facility] for about 2 years. Partner has also been in contact with [facility]. No SNF (locked unit) bed offers as of yet;CM will follow.
[2024-03-07 16:00] VITALS: BP 105/60; PULSE 62; RESP 12; TEMP 36.6; O2SAT 95
[2024-03-07 20:00] VITALS: PULSE 72; RESP 18; TEMP 36.7; O2SAT 94
[2024-03-07] MEDS: Donepezil HCl 10 MG TABLET PO (20:22)
[2024-03-07] MEDS: Enoxaparin Sodium 40 MG/0.4 ML SYRINGE SUBCUT (20:22)
[2024-03-08 03:57] VITALS: BP 116/68; PULSE 58; RESP 18; TEMP 36.2; O2SAT 95
[2024-03-08 08:00] VITALS: BP 106/61; PULSE 65; RESP 16; TEMP 36.3; O2SAT 93
[2024-03-08] MEDS: Folic Acid 1 MG TABLET PO (08:36)
[2024-03-08] MEDS: Memantine HCl 10 MG TABLET PO ×2 (08:36→20:30)
[2024-03-08] MEDS: FLUoxetine HCl 20 MG CAPSULE PO (08:36)
[2024-03-08] MEDS: cefuroxime axetiL 500 MG TABLET PO ×2 (08:36→20:30)
--- NOTE | 2024-03-08 09:03 | P.PNIM_ITS ---
Subjective Subjective Date of Service: 03/08/24 Interval History: no complaints no dyspnea or cough no fever Review of Systems Review of Systems: Yes all other systems are reviewed and are negative Physical Exam 2 Vital Signs: Vital Signs: Last Vital Signs Temp 97.4 F 03/08/24 08:00 Pulse 65 03/08/24 08:00 Resp 16 03/08/24 08:00 BP 106/61 03/08/24 08:00 Pulse Ox 93 03/08/24 08:00 O2 Del Method Room Air 03/08/24 08:00 BMI result Body Mass Index 19.8 Gen: in no acute distress HEENT: sclera anicteric, moist mucus membranes Neck: supple Lungs: diminished Heart: regular rate and rhythm, no murmurs Abd: soft, non-tender, non-distended Ext: no edema Skin: warm/well-perfused Neuro: alert and oriented to self only Psych: restricted affect Objective Data Active Medications Acetaminophen (Acetaminophen 325 Mg Tablet) 650 mg PO Q6H PRN PRN Reason: Headache/Pain Mild Scale (1-3) Al Hydroxide/Mg Hydroxide (Magnesium Hydrox/Alum Hydrox 30 Ml Oral.Susp) 30 ml PO Q6H PRN PRN Reason: Heartburn/Nausea Azithromycin (Azithromycin 500 Mg Tablet) 500 mg PO Q24H [facility] Stop: 03/08/24 23:59 Last Admin: 03/07/24 12:09 Dose: 500 mg Documented By: ZOHREH Cefuroxime Axetil (Cefuroxime Axetil 500 Mg Tablet) 500 mg PO BID [facility] Stop: 03/08/24 23:59 Last Admin: 03/08/24 08:36 Dose: 500 mg Documented By: VIBHA Donepezil HCl (Donepezil Hcl 10 Mg Tablet) 10 mg PO BEDTIME [facility] Last Admin: 03/07/24 20:22 Dose: 10 mg Documented By: DIRK Enoxaparin Sodium (Enoxaparin Sodium 40 Mg/0.4 Ml Syringe) 40 mg SUBCUT Q24H [facility] Last Admin: 03/07/24 20:22 Dose: 40 mg Documented By: DIRK Fluoxetine HCl (Fluoxetine Hcl 20 Mg Capsule) 20 mg PO DAILY [facility] Last Admin: 03/08/24 08:36 Dose: 20 mg Documented By: VIBHA Folic Acid (Folic Acid 1 Mg Tablet) 1 mg PO DAILY [facility] Last Admin: 03/08/24 08:36 Dose: 1 mg Documented By: VIBHA Magnesium Hydroxide (Milk Of Magnesia 30 Ml Oral.Susp) 30 ml PO DAILY PRN PRN Reason: Constipation Magnesium Hydroxide (Milk Of Magnesia 30 Ml Oral.Susp) 30 ml PO DAILY PRN PRN Reason: Constipation Memantine (Memantine Hcl 10 Mg Tablet) 10 mg PO BID [facility] Last Admin: 03/08/24 08:36 Dose: 10 mg Documented By: VIBHA Olanzapine (Olanzapine 2.5 Mg Tablet) 2.5 mg PO TID PRN PRN Reason: agitation Ondansetron HCl (Ondansetron Hcl 4 Mg/2 Ml Vial) 4 mg IVPUSH Q8H PRN PRN Reason: Nausea and Vomiting Sodium Chloride (0.9 % Sodium Chloride Flush 3 Ml Syringe) 3 ml IVFLUSH QSHIFT [facility] Last Admin: 03/08/24 08:38 Dose: Not Given Documented By: VIBHA Non-Admin Reason: No Access Labs 03/03/24 05:29 03/05/24 06:00 Assessment and Plan (1) Epididymal cyst: Status: Acute (2) Sepsis: Status: Acute (3) Acute metabolic encephalopathy: Status: Acute (4) Pneumonia: Status: Acute Plan 79yo M with Alzheimer's dementia + behavioral admitted to telemetry from for AMS, found to have sepsis from multifocal PNA pt on hospitalist service since 03/01/24 pt originally admitted to [facility] 01/02/24 but then sent to for sexual inappropriateness acute sepsis with septic encephalopathy due to multifocal PNA - mental status back at baseline; seen by FILTER TIP INSPECTOR and regular diet ordered - BCx negative, MRSA swab negative, given vanco + pip-shayne 03/01-03/04, finishing ABX course with cefuroxime + azithro 03/04-03/08 for total of 7d; urinary antigen for Legionella pending 5cm epididymal cyst on R scrotum - per Urology no intervention or further workup needed Alzheimer's dementia with behavioral disturbance - continue fluoxetine, donepezil, memantine, prn olanzapine VTE ppx - LMWH dispo - Psychiatry will not take pt back stating that no further inpt psychiatric care is necessary so now he becomes a LTC placement issue. May downgrade to M/S In my clinical judgment, the patient requires continued inpatient hospitalization for the following reasons: placement, Psychiatry not taking the pt back Total time managing care of this patient today: 25 minutes. Quality Stroke Does the patient have a stroke diagnosis?: No VTE Prior VTE?: No VTE Risk Level:: Medical - moderate - high VTE Device Contraindication: Treatment Not Indicated VTE Drug Contraindication: N/A - Med Ordered
[2024-03-08 11:24] VITALS: BP 100/62; PULSE 65; RESP 17; TEMP 36.6; O2SAT 94
[2024-03-08] MEDS: Azithromycin 500 MG TABLET PO (12:46)
[2024-03-08 15:59] VITALS: BP 108/65; PULSE 71; RESP 14; TEMP 36.9; O2SAT 94
[2024-03-08 20:00] VITALS: BP 109/67; PULSE 57; RESP 16; TEMP 36.6; O2SAT 94
[2024-03-08] MEDS: Enoxaparin Sodium 40 MG/0.4 ML SYRINGE SUBCUT (20:30)
[2024-03-08] MEDS: Donepezil HCl 10 MG TABLET PO (20:30)
[2024-03-09 03:50] VITALS: BP 122/61; PULSE 74; RESP 16; TEMP 36.8; O2SAT 96
[2024-03-09 08:00] VITALS: BP 134/65; PULSE 56; RESP 18; TEMP 36.1; O2SAT 94
[2024-03-09] MEDS: FLUoxetine HCl 20 MG CAPSULE PO (08:30)
[2024-03-09] MEDS: Folic Acid 1 MG TABLET PO (08:31)
[2024-03-09] MEDS: Memantine HCl 10 MG TABLET PO ×2 (08:31→19:50)
--- NOTE | 2024-03-09 09:22 | HO.PM.IMPN ---
Subjective Subjective Date of Service: 03/09/24 Interval History: no complaints no dyspnea or cough no fever Review of Systems Review of Systems: Yes all other systems are reviewed and are negative Physical Exam Vital Signs: Vital Signs: Last Vital Signs Temp 97 F 03/09/24 08:00 Pulse 56 03/09/24 08:00 Resp 18 03/09/24 08:00 BP 134/65 03/09/24 08:00 Pulse Ox 94 03/09/24 08:00 O2 Del Method Room Air 03/09/24 08:00 BMI result Body Mass Index 19.8 Gen: in no acute distress HEENT: sclera anicteric, moist mucus membranes Neck: supple Lungs: diminished Heart: regular rate and rhythm, no murmurs Abd: soft, non-tender, non-distended Ext: no edema Skin: warm/well-perfused Neuro: alert and oriented to self only Psych: restricted affect Objective Data Active Medications Acetaminophen (Acetaminophen 325 Mg Tablet) 650 mg PO Q6H PRN PRN Reason: Headache/Pain Mild Scale (1-3) Al Hydroxide/Mg Hydroxide (Magnesium Hydrox/Alum Hydrox 30 Ml Oral.Susp) 30 ml PO Q6H PRN PRN Reason: Heartburn/Nausea Donepezil HCl (Donepezil Hcl 10 Mg Tablet) 10 mg PO BEDTIME [facility] Last Admin: 03/08/24 20:30 Dose: 10 mg Documented By: DIRK Enoxaparin Sodium (Enoxaparin Sodium 40 Mg/0.4 Ml Syringe) 40 mg SUBCUT Q24H [facility] Last Admin: 03/08/24 20:30 Dose: 40 mg Documented By: DIRK Fluoxetine HCl (Fluoxetine Hcl 20 Mg Capsule) 20 mg PO DAILY [facility] Last Admin: 03/09/24 08:30 Dose: 20 mg Documented By: VIBHA Folic Acid (Folic Acid 1 Mg Tablet) 1 mg PO DAILY [facility] Last Admin: 03/09/24 08:31 Dose: 1 mg Documented By: VIBHA Magnesium Hydroxide (Milk Of Magnesia 30 Ml Oral.Susp) 30 ml PO DAILY PRN PRN Reason: Constipation Magnesium Hydroxide (Milk Of Magnesia 30 Ml Oral.Susp) 30 ml PO DAILY PRN PRN Reason: Constipation Memantine (Memantine Hcl 10 Mg Tablet) 10 mg PO BID [facility] Last Admin: 06/19/24 08:31 Dose: 10 mg Documented By: VIBHA Olanzapine (Olanzapine 2.5 Mg Tablet) 2.5 mg PO TID PRN PRN Reason: agitation Ondansetron HCl (Ondansetron Hcl 4 Mg/2 Ml Vial) 4 mg IVPUSH Q8H PRN PRN Reason: Nausea and Vomiting Sodium Chloride (0.9 % Sodium Chloride Flush 3 Ml Syringe) 3 ml IVFLUSH QSHIFT [facility] Last Admin: 03/09/24 08:32 Dose: Not Given Documented By: VIBHA Non-Admin Reason: No Access Labs 03/03/24 05:29 03/05/24 06:00 Assessment and Plan (1) Epididymal cyst: Status: Acute (2) Sepsis: Status: Acute (3) Acute metabolic encephalopathy: Status: Acute (4) Pneumonia: Status: Acute Plan 79yo M with Alzheimer's dementia + behavioral admitted to telemetry from for AMS, found to have sepsis from multifocal PNA pt on hospitalist service since 03/01/24 pt originally admitted to [facility] 01/02/24 but then sent to for sexual inappropriateness acute sepsis with septic encephalopathy due to multifocal PNA - mental status back at baseline; seen by FACILITIES FLIGHT CHECK PILOT and regular diet ordered - BCx negative, MRSA swab negative, given vanco + pip-shayne 03/01-03/04, finished ABX course with cefuroxime + azithro 03/04-03/08 for total of 7d; 5cm epididymal cyst on R scrotum - per Urology no intervention or further workup needed Alzheimer's dementia with behavioral disturbance - continue fluoxetine, donepezil, memantine, prn olanzapine VTE ppx - LMWH dispo - Psychiatry will not take pt back stating that no further inpt psychiatric care is necessary so now he becomes a LTC placement issue. May downgrade to M/S In my clinical judgment, the patient requires continued inpatient hospitalization for the following reasons: placement, Psychiatry not taking the pt back Total time managing care of this patient today: 25 minutes. Quality Stroke Does the patient have a stroke diagnosis?: No VTE Prior VTE?: No VTE Risk Level:: Medical - moderate - high VTE Device Contraindication: Treatment Not Indicated VTE Drug Contraindication: N/A - Med Ordered
--- NOTE | 2024-03-09 10:24 | MHC.CM.PN ---
LTC SNF search is ongoing; there are no bed offers as of yet. Patient has applied at [facility], per his S.O./HCP/Gertude. CM will follow.
--- NOTE | 2024-03-09 10:43 | MHC.CLN ---
F/U PT IS UNDER WT FOR HT WITH 82% IBW RANGE INDICATES MILDLY UNDER WT HOWEVER PT HAS BEEN SLOWLY GAINING WT SINCE PREVIOUS ADMISSION HX; BMI 19 BORDERLINE WNL PO INTAKE EXCELLENT 100% CONSISTENTLY DIET RX: REGULAR-APPROPRIATE PT RECEIVING ENSURE BID TO INCREASE KCALS PROVIDES 700KCALS, 40G PROTEIN MONITOR PO INTAKE AND ENCOURAGE SUPPLEMENT RD TO FOLLOW WEEKLY PT AWAITING SNF PLACEMENT
[2024-03-09 16:00] VITALS: BP 112/61; PULSE 66; RESP 18; TEMP 36.6; O2SAT 94
[2024-03-09] MEDS: Enoxaparin Sodium 40 MG/0.4 ML SYRINGE SUBCUT (19:50)
[2024-03-09] MEDS: Donepezil HCl 10 MG TABLET PO (19:50)
[2024-03-09 19:52] VITALS: BP 119/55; PULSE 65; RESP 20; TEMP 36.4; O2SAT 95
[2024-03-10 04:00] VITALS: BP 119/69; PULSE 54; RESP 20; TEMP 36.9; O2SAT 94
[2024-03-10] MEDS: FLUoxetine HCl 20 MG CAPSULE PO (07:15)
[2024-03-10] MEDS: Folic Acid 1 MG TABLET PO (07:15)
[2024-03-10] MEDS: Memantine HCl 10 MG TABLET PO ×2 (07:15→20:09)
[2024-03-10 08:00] VITALS: BP 110/53; PULSE 64; RESP 20; TEMP 36.4; O2SAT 94
--- NOTE | 2024-03-10 08:50 | MHC.CM.PN ---
CM spoke with Admissions (Olvin)at [facility] @ [phone]; Per Olvin, financially, Patient is not suitable for placement at [facility]. Per Olvin, Partner/HCP/Yuliana is meeting with an Insights Strategist and discussing the sale of Patient's home, that then may qualify Patient financially, for [facility]. Olvin is awaiting a return call from Yuliana. CM will continue to follow. An extensive SNF search is underway with no bed offers yet and none anticipated.
[2024-03-10 12:00] VITALS: BP 109/67; PULSE 75; RESP 20; TEMP 36.4; O2SAT 95
--- NOTE | 2024-03-10 12:14 | P.PNIM_ITS ---
Subjective Subjective Date of Service: 03/10/24 Interval History: seen and evalauted this morning alert and interactive , in good mood tolerating diet no complaints Review of Systems Review of Systems: Yes all other systems are reviewed and are negative Physical Exam 2 Vital Signs: Vital Signs: Last Vital Signs Temp 97.5 F 03/10/24 12:00 Pulse 75 03/10/24 12:00 Resp 20 03/10/24 12:00 BP 109/67 03/10/24 12:00 Pulse Ox 95 03/10/24 12:00 O2 Del Method Room Air 03/10/24 12:00 BMI result Body Mass Index 19.8 Const: Other: Constitutional : Awake, interactive, not in distress Neck : Normal inspection, Supple Cardiovascular : RRR, no JVP, no lower extremity edema Respiratory : bilateral air entry, basal fine crackles more on right side, no wheezes or rhonchi Gastrointestinal: soft, lax, Normal bowel sounds, Non tender Skin : Warm, Dry Neurological : Alert & oriented x1, No focal deficit Objective Data Active Medications Acetaminophen (Acetaminophen 325 Mg Tablet) 650 mg PO Q6H PRN PRN Reason: Headache/Pain Mild Scale (1-3) Al Hydroxide/Mg Hydroxide (Magnesium Hydrox/Alum Hydrox 30 Ml Oral.Susp) 30 ml PO Q6H PRN PRN Reason: Heartburn/Nausea Donepezil HCl (Donepezil Hcl 10 Mg Tablet) 10 mg PO BEDTIME [facility] Last Admin: 03/09/24 19:50 Dose: 10 mg Documented By: KWAME Enoxaparin Sodium (Enoxaparin Sodium 40 Mg/0.4 Ml Syringe) 40 mg SUBCUT Q24H [facility] Last Admin: 03/09/24 19:50 Dose: 40 mg Documented By: KWAME Fluoxetine HCl (Fluoxetine Hcl 20 Mg Capsule) 20 mg PO DAILY [facility] Last Admin: 03/10/24 07:15 Dose: 20 mg Documented By: ZOHREH Folic Acid (Folic Acid 1 Mg Tablet) 1 mg PO DAILY [facility] Last Admin: 03/10/24 07:15 Dose: 1 mg Documented By: ZOHREH Magnesium Hydroxide (Milk Of Magnesia 30 Ml Oral.Susp) 30 ml PO DAILY PRN PRN Reason: Constipation Magnesium Hydroxide (Milk Of Magnesia 30 Ml Oral.Susp) 30 ml PO DAILY PRN PRN Reason: Constipation Memantine (Memantine Hcl 10 Mg Tablet) 10 mg PO BID [facility] Last Admin: 03/10/24 07:15 Dose: 10 mg Documented By: ZOHREH Olanzapine (Olanzapine 2.5 Mg Tablet) 2.5 mg PO TID PRN PRN Reason: agitation Ondansetron HCl (Ondansetron Hcl 4 Mg/2 Ml Vial) 4 mg IVPUSH Q8H PRN PRN Reason: Nausea and Vomiting Sodium Chloride (0.9 % Sodium Chloride Flush 3 Ml Syringe) 3 ml IVFLUSH QSHIFT [facility] Last Admin: 03/10/24 07:14 Dose: Not Given Documented By: ZOHREH Non-Admin Reason: No Access Labs 03/03/24 05:29 03/05/24 06:00 Assessment and Plan (1) Dementia: Status: Acute Plan 79yo M with Alzheimer's dementia + behavioral admitted to telemetry from for AMS, found to have sepsis from multifocal PNA pt on hospitalist service since 03/01/24 pt originally admitted to [facility] 01/02/24 but then sent to for sexual inappropriateness acute sepsis with septic encephalopathy due to multifocal PNA mental status back at baseline; seen by CASTING COORDINATOR and regular diet ordered BCx negative, MRSA swab negative, given vanco + pip-shayne 03/01-03/04, finished ABX course with cefuroxime + azithro 03/04-03/08 for total of 7d 5cm epididymal cyst on R scrotum per Urology no intervention or further workup needed Alzheimer's dementia with behavioral disturbance continue fluoxetine, donepezil, memantine, prn olanzapine VTE ppx LMWH dispo Psychiatry will not take pt back stating that no further inpt psychiatric care is necessary so now he becomes a LTC placement issue. May downgrade to M/S In my clinical judgment, the patient requires continued inpatient hospitalization for the following reasons: placement, Psychiatry not taking the pt back Quality Stroke Does the patient have a stroke diagnosis?: No VTE Prior VTE?: No VTE Risk Level:: Medical - moderate - high VTE Device Contraindication: Treatment Not Indicated VTE Drug Contraindication: N/A - Med Ordered
[2024-03-10 16:00] VITALS: BP 100/63; PULSE 74; RESP 20; TEMP 36.9; O2SAT 93
[2024-03-10 19:58] VITALS: BP 117/60; PULSE 76; RESP 16; TEMP 36; O2SAT 94
[2024-03-10] MEDS: Donepezil HCl 10 MG TABLET PO (20:09)
[2024-03-10] MEDS: Enoxaparin Sodium 40 MG/0.4 ML SYRINGE SUBCUT (20:09)
[2024-03-11 04:00] VITALS: BP 124/62; PULSE 66; RESP 16; TEMP 36.2; O2SAT 95
[2024-03-11 08:00] VITALS: BP 114/67; PULSE 70; RESP 19; TEMP 36.6; O2SAT 94
[2024-03-11] MEDS: FLUoxetine HCl 20 MG CAPSULE PO (08:15)
[2024-03-11] MEDS: Folic Acid 1 MG TABLET PO (08:15)
[2024-03-11] MEDS: Memantine HCl 10 MG TABLET PO ×2 (08:16→21:51)
--- NOTE | 2024-03-11 13:17 | P.PNIM_ITS ---
Subjective Subjective Date of Service: 03/11/24 Interval History: seen and evalauted this morning alert and interactive , in good mood tolerating diet no complaints Physical Exam 2 Vital Signs: Vital Signs: Last Vital Signs Temp 97.8 F 03/11/24 08:00 Pulse 70 03/11/24 08:00 Resp 19 03/11/24 08:00 BP 114/67 03/11/24 08:00 Pulse Ox 94 03/11/24 08:00 O2 Del Method Room Air 03/11/24 08:00 BMI result Body Mass Index 19.8 Const: Other: Constitutional : Awake, interactive, not in distress Neck : Normal inspection, Supple Cardiovascular : RRR, no JVP, no lower extremity edema Respiratory : bilateral air entry, basal fine crackles more on right side, no wheezes or rhonchi Gastrointestinal: soft, lax, Normal bowel sounds, Non tender Skin : Warm, Dry Neurological : Alert & oriented x1, No focal deficit Objective Data Active Medications Acetaminophen (Acetaminophen 325 Mg Tablet) 650 mg PO Q6H PRN PRN Reason: Headache/Pain Mild Scale (1-3) Al Hydroxide/Mg Hydroxide (Magnesium Hydrox/Alum Hydrox 30 Ml Oral.Susp) 30 ml PO Q6H PRN PRN Reason: Heartburn/Nausea Donepezil HCl (Donepezil Hcl 10 Mg Tablet) 10 mg PO BEDTIME [facility] Last Admin: 03/10/24 20:09 Dose: 10 mg Documented By: TAMMY Enoxaparin Sodium (Enoxaparin Sodium 40 Mg/0.4 Ml Syringe) 40 mg SUBCUT Q24H [facility] Last Admin: 03/10/24 20:09 Dose: 40 mg Documented By: TAMMY Fluoxetine HCl (Fluoxetine Hcl 20 Mg Capsule) 20 mg PO DAILY [facility] Last Admin: 03/11/24 08:15 Dose: 20 mg Documented By: PAIGE Folic Acid (Folic Acid 1 Mg Tablet) 1 mg PO DAILY [facility] Last Admin: 03/11/24 08:15 Dose: 1 mg Documented By: PAIGE Magnesium Hydroxide (Milk Of Magnesia 30 Ml Oral.Susp) 30 ml PO DAILY PRN PRN Reason: Constipation Magnesium Hydroxide (Milk Of Magnesia 30 Ml Oral.Susp) 30 ml PO DAILY PRN PRN Reason: Constipation Memantine (Memantine Hcl 10 Mg Tablet) 10 mg PO BID [facility] Last Admin: 03/11/24 08:16 Dose: 10 mg Documented By: PAIGE Olanzapine (Olanzapine 2.5 Mg Tablet) 2.5 mg PO TID PRN PRN Reason: agitation Ondansetron HCl (Ondansetron Hcl 4 Mg/2 Ml Vial) 4 mg IVPUSH Q8H PRN PRN Reason: Nausea and Vomiting Sodium Chloride (0.9 % Sodium Chloride Flush 3 Ml Syringe) 3 ml IVFLUSH QSHIFT [facility] Last Admin: 03/11/24 08:16 Dose: Not Given Documented By: PAIGE Non-Admin Reason: No Access Labs 03/03/24 05:29 03/05/24 06:00 Assessment and Plan (1) Dementia: Status: Acute Plan 79yo M with Alzheimer's dementia + behavioral admitted to telemetry from for AMS, found to have sepsis from multifocal PNA pt on hospitalist service since 03/01/24 pt originally admitted [facility] 01/02/24 but then sent to for sexual inappropriateness acute sepsis with septic encephalopathy due to multifocal PNA mental status back at baseline; seen by DIAMOND DIE DRILLER and regular diet ordered BCx negative, MRSA swab negative, given vanco + pip-shayne 03/01-03/04, finished ABX course with cefuroxime + azithro 03/04-03/08 for total of 7d 5cm epididymal cyst on R scrotum per Urology no intervention or further workup needed Alzheimer's dementia with behavioral disturbance continue fluoxetine, donepezil, memantine, prn olanzapine VTE ppx LMWH dispo Psychiatry will not take pt back stating that no further inpt psychiatric care is necessary so now he becomes a LTC placement issue. May downgrade to M/S In my clinical judgment, the patient requires continued inpatient hospitalization for the following reasons: placement, Psychiatry not taking the pt back Quality Stroke Does the patient have a stroke diagnosis?: No VTE Prior VTE?: No VTE Risk Level:: Medical - moderate - high VTE Device Contraindication: Treatment Not Indicated VTE Drug Contraindication: N/A - Med Ordered
--- NOTE | 2024-03-11 13:29 | MHC.CM.PN ---
EMR reviewed and per MD rounds, pt remains medically cleared for discharge but unable to due to awaiting placement with no current bed offers, referral has been updated in [facility].
[2024-03-11 16:00] VITALS: BP 119/64; PULSE 71; RESP 16; TEMP 36.3; O2SAT 96
[2024-03-11 19:39] VITALS: BP 116/60; PULSE 84; RESP 18; TEMP 36.9; O2SAT 92
[2024-03-11] MEDS: Enoxaparin Sodium 40 MG/0.4 ML SYRINGE SUBCUT (21:51)
[2024-03-11] MEDS: Donepezil HCl 10 MG TABLET PO (21:51)
[2024-03-11 23:56] VITALS: BP 111/65; PULSE 90; RESP 18; TEMP 36.9; O2SAT 92
[2024-03-12 08:00] VITALS: BP 113/65; PULSE 63; RESP 20; TEMP 36.6; O2SAT 93
[2024-03-12] MEDS: FLUoxetine HCl 20 MG CAPSULE PO (09:30)
[2024-03-12] MEDS: Memantine HCl 10 MG TABLET PO ×2 (09:30→22:30)
[2024-03-12] MEDS: Folic Acid 1 MG TABLET PO (09:30)
--- NOTE | 2024-03-12 11:26 | HO.PM.IMPN ---
Subjective Subjective Date of Service: 03/12/24 Interval History: seen and evalauted this morning alert and interactive , in good mood tolerating diet no complaints Physical Exam Vital Signs: Vital Signs: Last Vital Signs Temp 97.8 F 03/12/24 08:00 Pulse 63 03/12/24 08:00 Resp 20 03/12/24 08:00 BP 113/65 03/12/24 08:00 Pulse Ox 93 03/12/24 08:00 O2 Del Method Room Air 03/12/24 08:00 BMI result Body Mass Index 19.8 Const: Other: Constitutional : Awake, interactive, not in distress Neck : Normal inspection, Supple Cardiovascular : RRR, no JVP, no lower extremity edema Respiratory : bilateral air entry, basal fine crackles more on right side, no wheezes or rhonchi Gastrointestinal: soft, lax, Normal bowel sounds, Non tender Skin : Warm, Dry Neurological : Alert & oriented x1, No focal deficit Objective Data Active Medications Acetaminophen (Acetaminophen 325 Mg Tablet) 650 mg PO Q6H PRN PRN Reason: Headache/Pain Mild Scale (1-3) Al Hydroxide/Mg Hydroxide (Magnesium Hydrox/Alum Hydrox 30 Ml Oral.Susp) 30 ml PO Q6H PRN PRN Reason: Heartburn/Nausea Donepezil HCl (Donepezil Hcl 10 Mg Tablet) 10 mg PO BEDTIME [facility] Last Admin: 03/11/24 21:51 Dose: 10 mg Documented By: XU Enoxaparin Sodium (Enoxaparin Sodium 40 Mg/0.4 Ml Syringe) 40 mg SUBCUT Q24H [facility] Last Admin: 03/11/24 21:51 Dose: 40 mg Documented By: XU Fluoxetine HCl (Fluoxetine Hcl 20 Mg Capsule) 20 mg PO DAILY [facility] Last Admin: 03/12/24 09:30 Dose: 20 mg Documented By: SHONDAFEGEOVANNY Folic Acid (Folic Acid 1 Mg Tablet) 1 mg PO DAILY [facility] Last Admin: 03/12/24 09:30 Dose: 1 mg Documented By: DAYAMI Magnesium Hydroxide (Milk Of Magnesia 30 Ml Oral.Susp) 30 ml PO DAILY PRN PRN Reason: Constipation Magnesium Hydroxide (Milk Of Magnesia 30 Ml Oral.Susp) 30 ml PO DAILY PRN PRN Reason: Constipation Memantine (Memantine Hcl 10 Mg Tablet) 10 mg PO BID [facility] Last Admin: 03/12/24 09:30 Dose: 10 mg Documented By: DAYAMI Olanzapine (Olanzapine 2.5 Mg Tablet) 2.5 mg PO TID PRN PRN Reason: agitation Ondansetron HCl (Ondansetron Hcl 4 Mg/2 Ml Vial) 4 mg IVPUSH Q8H PRN PRN Reason: Nausea and Vomiting Sodium Chloride (0.9 % Sodium Chloride Flush 3 Ml Syringe) 3 ml IVFLUSH QSHIFT [facility] Last Admin: 03/12/24 09:30 Dose: Not Given Documented By: DAYAMI Non-Admin Reason: no IV Labs 03/03/24 05:29 03/05/24 06:00 Assessment and Plan (1) Dementia: Status: Acute Plan 79yo M with Alzheimer's dementia + behavioral admitted to telemetry from for AMS, found to have sepsis from multifocal PNA pt on hospitalist service since 03/01/24 pt originally admitted to [facility] 01/02/24 but then sent to for sexual inappropriateness acute sepsis with septic encephalopathy due to multifocal PNA mental status back at baseline; seen by REPAIR MANAGER and regular diet ordered BCx negative, MRSA swab negative, given vanco + pip-shayne 03/01-03/04, finished ABX course with cefuroxime + azithro 03/04-03/08 for total of 7d 5cm epididymal cyst on R scrotum per Urology no intervention or further workup needed Alzheimer's dementia with behavioral disturbance continue fluoxetine, donepezil, memantine, prn olanzapine VTE ppx LMWH dispo Psychiatry will not take pt back stating that no further inpt psychiatric care is necessary so now he becomes a LTC placement issue. May downgrade to M/S In my clinical judgment, the patient requires continued inpatient hospitalization for the following reasons: placement, Psychiatry not taking the pt back Quality Stroke Does the patient have a stroke diagnosis?: No VTE Prior VTE?: No VTE Risk Level:: Medical - moderate - high VTE Device Contraindication: Treatment Not Indicated VTE Drug Contraindication: N/A - Med Ordered
[2024-03-12 12:30] VITALS: BP 99/58; PULSE 80; RESP 20; TEMP 37; O2SAT 96
[2024-03-12 16:14] VITALS: BP 103/58; PULSE 68; RESP 16; TEMP 36.7; O2SAT 95
[2024-03-12 19:57] VITALS: BP 113/55; PULSE 61; RESP 17; TEMP 36.6; O2SAT 95
[2024-03-12] MEDS: Enoxaparin Sodium 40 MG/0.4 ML SYRINGE SUBCUT (22:30)
[2024-03-12] MEDS: Donepezil HCl 10 MG TABLET PO (22:30)
[2024-03-13 04:00] VITALS: BP 123/76; PULSE 74; RESP 16; TEMP 36.3; O2SAT 95
[2024-03-13] MEDS: Memantine HCl 10 MG TABLET PO ×2 (07:32→23:01)
[2024-03-13] MEDS: Folic Acid 1 MG TABLET PO (07:32)
[2024-03-13] MEDS: FLUoxetine HCl 20 MG CAPSULE PO (07:32)
[2024-03-13 07:46] VITALS: BP 117/58; PULSE 52; RESP 18; TEMP 36.6; O2SAT 96
--- NOTE | 2024-03-13 10:00 | PC.NURSE ---
called pharmacy to bring elixir to unit as medication not in [facility].
--- NOTE | 2024-03-13 10:33 | P.PNIM_ITS ---
Subjective Subjective Date of Service: 03/13/24 Interval History: seen and evalauted this morning alert and interactive , in good mood tolerating diet complaining of generalized abdominal pain, no fever or diarrhea Review of Systems Review of Systems: Yes all other systems are reviewed and are negative Physical Exam 2 Vital Signs: Vital Signs: Last Vital Signs Temp 97.8 F 03/13/24 07:46 Pulse 52 03/13/24 07:46 Resp 18 03/13/24 07:46 BP 117/58 L 03/13/24 07:46 Pulse Ox 96 03/13/24 07:46 O2 Del Method Room Air 03/13/24 07:46 BMI result Body Mass Index 19.8 Const: Other: Constitutional : Awake, interactive, not in distress Neck : Normal inspection, Supple Cardiovascular : RRR, no JVP, no lower extremity edema Respiratory : bilateral air entry, basal fine crackles more on right side, no wheezes or rhonchi Gastrointestinal: soft, lax, Normal bowel sounds, Non tender Skin : Warm, Dry Neurological : Alert & oriented x1, No focal deficit Objective Data Active Medications Acetaminophen (Acetaminophen 325 Mg Tablet) 650 mg PO Q6H PRN PRN Reason: Headache/Pain Mild Scale (1-3) Al Hydroxide/Mg Hydroxide (Magnesium Hydrox/Alum Hydrox 30 Ml Oral.Susp) 30 ml PO Q6H PRN PRN Reason: Heartburn/Nausea Donepezil HCl (Donepezil Hcl 10 Mg Tablet) 10 mg PO BEDTIME [facility] Last Admin: 03/12/24 22:30 Dose: 10 mg Documented By: XU Enoxaparin Sodium (Enoxaparin Sodium 40 Mg/0.4 Ml Syringe) 40 mg SUBCUT Q24H [facility] Last Admin: 03/12/24 22:30 Dose: 40 mg Documented By: XU Fluoxetine HCl (Fluoxetine Hcl 20 Mg Capsule) 20 mg PO DAILY [facility] Last Admin: 03/13/24 07:32 Dose: 20 mg Documented By: DAYAMI Folic Acid (Folic Acid 1 Mg Tablet) 1 mg PO DAILY [facility] Last Admin: 03/13/24 07:32 Dose: 1 mg Documented By: DAYAMI Magnesium Hydroxide (Milk Of Magnesia 30 Ml Oral.Susp) 30 ml PO DAILY PRN PRN Reason: Constipation Magnesium Hydroxide (Milk Of Magnesia 30 Ml Oral.Susp) 30 ml PO DAILY PRN PRN Reason: Constipation Memantine (Memantine Hcl 10 Mg Tablet) 10 mg PO BID [facility] Last Admin: 03/13/24 07:32 Dose: 10 mg Documented By: DAYAMI Olanzapine (Olanzapine 2.5 Mg Tablet) 2.5 mg PO TID PRN PRN Reason: agitation Ondansetron HCl (Ondansetron Hcl 4 Mg/2 Ml Vial) 4 mg IVPUSH Q8H PRN PRN Reason: Nausea and Vomiting Sodium Chloride (0.9 % Sodium Chloride Flush 3 Ml Syringe) 3 ml IVFLUSH QSHIFT [facility] Last Admin: 03/13/24 07:33 Dose: Not Given Documented By: DAYAMI Non-Admin Reason: no IV Labs 03/03/24 05:29 03/05/24 06:00 Assessment and Plan (1) Dementia: Status: Acute Plan 79yo M with Alzheimer's dementia + behavioral admitted to telemetry from for AMS, found to have sepsis from multifocal PNA pt on hospitalist service since 03/01/24 pt originally admitted to [facility] 01/02/24 but then sent to for sexual inappropriateness acute sepsis with septic encephalopathy due to multifocal PNA mental status back at baseline; seen by DIRECTOR VIDEO and regular diet ordered BCx negative, MRSA swab negative, given vanco + pip-shayne 03/01-03/04, finished ABX course with cefuroxime + azithro 03/04-03/08 for total of 7d Abdominal pain no significant signs, symptomatic measures for now monitor if need further testing 5cm epididymal cyst on R scrotum per Urology no intervention or further workup needed Alzheimer's dementia with behavioral disturbance continue fluoxetine, donepezil, memantine, prn olanzapine VTE ppx LMWH dispo Psychiatry will not take pt back stating that no further inpt psychiatric care is necessary so now he becomes a LTC placement issue. May downgrade to M/S In my clinical judgment, the patient requires continued inpatient hospitalization for the following reasons: placement, Psychiatry not taking the pt back Quality Stroke Does the patient have a stroke diagnosis?: No VTE Prior VTE?: No VTE Risk Level:: Medical - moderate - high VTE Device Contraindication: Treatment Not Indicated VTE Drug Contraindication: N/A - Med Ordered
--- NOTE | 2024-03-13 12:09 | PC.NURSE ---
Called pharmacy again as elixir is still not on unit. Pharmacy to bring up now.
[2024-03-13] MEDS: PHENobarb/Hyoscy/Atropine/Scop 10 ML ELIXIR 5 ML PO (12:29)
[2024-03-13 15:56] VITALS: BP 92/64; PULSE 55; RESP 20; TEMP 36.4; O2SAT 94
[2024-03-13 20:00] VITALS: BP 104/62; PULSE 61; RESP 18; TEMP 36.1; O2SAT 94
[2024-03-13] MEDS: Donepezil HCl 10 MG TABLET PO (23:00)
[2024-03-13] MEDS: Enoxaparin Sodium 40 MG/0.4 ML SYRINGE SUBCUT (23:01)
[2024-03-14 04:00] VITALS: BP 124/63; PULSE 56; RESP 18; TEMP 36.2; O2SAT 94
[2024-03-14 08:00] VITALS: BP 113/59; PULSE 81; RESP 20; TEMP 36.2; O2SAT 94
[2024-03-14] MEDS: Memantine HCl 10 MG TABLET PO ×2 (09:17→20:39)
[2024-03-14] MEDS: FLUoxetine HCl 20 MG CAPSULE PO (09:17)
[2024-03-14] MEDS: Folic Acid 1 MG TABLET PO (09:17)
--- NOTE | 2024-03-14 12:07 | P.PNIM_ITS ---
Subjective Subjective Date of Service: 03/14/24 Interval History: Awaiting placement, has completed treatment for sepsis, PNA, and encephalopathy. No acute issues, awaiting SNF placement Review of Systems Review of Systems: Yes all other systems are reviewed and are negative Physical Exam 2 Vital Signs: Vital Signs: Last Vital Signs Temp 97.2 F 03/14/24 08:00 Pulse 81 03/14/24 08:00 Resp 20 03/14/24 08:00 BP 113/59 L 03/14/24 08:00 Pulse Ox 94 03/14/24 08:00 O2 Del Method Room Air 03/14/24 08:00 BMI result Body Mass Index 19.8 General: pleasantly confused, oriented to self Resp: CTA bilateral CVS: S1,S2,RRR GI: +BS, NT, no distention Skin: No rash Neuro: motor grossly intact Psych: appropriate affect Objective Data Active Medications Acetaminophen (Acetaminophen 325 Mg Tablet) 650 mg PO Q6H PRN PRN Reason: Headache/Pain Mild Scale (1-3) Al Hydroxide/Mg Hydroxide (Magnesium Hydrox/Alum Hydrox 30 Ml Oral.Susp) 30 ml PO Q6H PRN PRN Reason: Heartburn/Nausea Donepezil HCl (Donepezil Hcl 10 Mg Tablet) 10 mg PO BEDTIME [facility] Last Admin: 03/13/24 23:00 Dose: 10 mg Documented By: TAMMY Enoxaparin Sodium (Enoxaparin Sodium 40 Mg/0.4 Ml Syringe) 40 mg SUBCUT Q24H [facility] Last Admin: 03/13/24 23:01 Dose: 40 mg Documented By: TAMMY Fluoxetine HCl (Fluoxetine Hcl 20 Mg Capsule) 20 mg PO DAILY [facility] Last Admin: 03/14/24 09:17 Dose: 20 mg Documented By: HAYDE Folic Acid (Folic Acid 1 Mg Tablet) 1 mg PO DAILY [facility] Last Admin: 03/14/24 09:17 Dose: 1 mg Documented By: HAYDE Magnesium Hydroxide (Milk Of Magnesia 30 Ml Oral.Susp) 30 ml PO DAILY PRN PRN Reason: Constipation Magnesium Hydroxide (Milk Of Magnesia 30 Ml Oral.Susp) 30 ml PO DAILY PRN PRN Reason: Constipation Memantine (Memantine Hcl 10 Mg Tablet) 10 mg PO BID [facility] Last Admin: 03/14/24 09:17 Dose: 10 mg Documented By: HAYDE Olanzapine (Olanzapine 2.5 Mg Tablet) 2.5 mg PO TID PRN PRN Reason: agitation Ondansetron HCl (Ondansetron Hcl 4 Mg/2 Ml Vial) 4 mg IVPUSH Q8H PRN PRN Reason: Nausea and Vomiting Sodium Chloride (0.9 % Sodium Chloride Flush 3 Ml [facility]ringe) [facility] Admin: 03/14/24 11:49 Dose: Not Given Documented By: HAYDE Non-Admin Reason: Previously Administered Labs 03/03/24 05:29 03/05/24 06:00 Assessment and Plan (1) Dementia: Status: Acute Plan 79yo M with Alzheimer's dementia + behavioral admitted to telemetry from for AMS, found to have sepsis from multifocal PNA pt on hospitalist service since 03/01/24 pt originally admitted to [facility] 01/02/24 but then sent to for sexual inappropriateness. Now awaiting intermediate project manager placement Sepsis d/t PNA, resolved. BCx negative, MRSA swab negative, given vanco + pip- shayne 03/01-03/04, finished ABX course with cefuroxime + azithro 03/04-03/08 for total of 7d Metabolic encephalopathy d/t above, resolved, back to baseline emntal status Abdominal pain--presently without pain, imaign if recur 5cm epididymal cyst on R scrotum per Urology no intervention or further workup needed Alzheimer's dementia with behavioral disturbance continue fluoxetine, donepezil, memantine, prn olanzapine VTE ppx LMWH dispo Psychiatry will not take pt back stating that no further inpt psychiatric care is necessary so now he becomes a LTC placement issue. May downgrade to M/S need for inpatient: awaiting placement Quality Stroke Does the patient have a stroke diagnosis?: No VTE Prior VTE?: No VTE Risk Level:: Medical - moderate - high VTE Device Contraindication: Treatment Not Indicated VTE Drug Contraindication: N/A - Med Ordered
--- NOTE | 2024-03-14 14:03 | MHC.CM.PN ---
Per MD rounds patient is medically cleared for discharge. Referrals have been clinically updated and sent to the facilities. No bed offers have been received. CM will continue to follow for placement. Patient will transport via BLS.
[2024-03-14 14:57] VITALS: BP 144/79; PULSE 80; RESP 20; TEMP 36.2; O2SAT 95
[2024-03-14 18:59] VITALS: BP 107/55; PULSE 59; RESP 20; TEMP 36.1; O2SAT 93
[2024-03-14] MEDS: Enoxaparin Sodium 40 MG/0.4 ML SYRINGE SUBCUT (20:37)
[2024-03-14] MEDS: Donepezil HCl 10 MG TABLET PO (20:39)
[2024-03-15 03:53] VITALS: BP 107/63; PULSE 56; RESP 20; TEMP 36.3
[2024-03-15 08:00] VITALS: BP 100/64; PULSE 73; RESP 18; TEMP 36.2; O2SAT 94
[2024-03-15] MEDS: Folic Acid 1 MG TABLET PO (08:12)
[2024-03-15] MEDS: FLUoxetine HCl 20 MG CAPSULE PO (08:12)
[2024-03-15] MEDS: Memantine HCl 10 MG TABLET PO ×2 (08:12→20:47)
--- NOTE | 2024-03-15 11:21 | HO.PM.IMPN ---
Subjective Subjective Date of Service: 03/15/24 Interval History: Awaiting placement, has completed treatment for sepsis, PNA, and encephalopathy. No acute issues, awaiting SNF placement Physical Exam Vital Signs: Vital Signs: Last Vital Signs Temp 97.2 F 03/15/24 08:00 Pulse 73 03/15/24 08:00 Resp 18 03/15/24 08:00 BP 100/64 03/15/24 08:00 Pulse Ox 94 03/15/24 08:00 O2 Del Method Room Air 03/15/24 08:00 BMI result Body Mass Index 19.8 General: pleasantly confused, oriented to self Resp: CTA bilateral CVS: S1,S2,RRR GI: +BS, NT, no distention Skin: No rash Neuro: motor grossly intact Psych: appropriate affect Objective Data Active Medications Acetaminophen (Acetaminophen 325 Mg Tablet) 650 mg PO Q6H PRN PRN Reason: Headache/Pain Mild Scale (1-3) Al Hydroxide/Mg Hydroxide (Magnesium Hydrox/Alum Hydrox 30 Ml Oral.Susp) 30 ml PO Q6H PRN PRN Reason: Heartburn/Nausea Donepezil HCl (Donepezil Hcl 10 Mg Tablet) 10 mg PO BEDTIME [facility] Last Admin: 03/14/24 20:39 Dose: 10 mg Documented By: HAILEY Enoxaparin Sodium (Enoxaparin Sodium 40 Mg/0.4 Ml Syringe) 40 mg SUBCUT Q24H [facility] Last Admin: 03/14/24 20:37 Dose: 40 mg Documented By: HAILEY Fluoxetine HCl (Fluoxetine Hcl 20 Mg Capsule) 20 mg PO DAILY [facility] Last Admin: 03/15/24 08:12 Dose: 20 mg Documented By: ZOHREH Folic Acid (Folic Acid 1 Mg Tablet) 1 mg PO DAILY [facility] Last Admin: 03/15/24 08:12 Dose: 1 mg Documented By: ZOHREH Magnesium Hydroxide (Milk Of Magnesia 30 Ml Oral.Susp) 30 ml PO DAILY PRN PRN Reason: Constipation Magnesium Hydroxide (Milk Of Magnesia 30 Ml Oral.Susp) 30 ml PO DAILY PRN PRN Reason: Constipation Memantine (Memantine Hcl 10 Mg Tablet) 10 mg PO BID [facility] Last Admin: 03/15/24 08:12 Dose: 10 mg Documented By: ZOHREH Olanzapine (Olanzapine 2.5 Mg Tablet) 2.5 mg PO TID PRN PRN Reason: agitation Ondansetron HCl (Ondansetron Hcl 4 Mg/2 Ml Vial) 4 mg IVPUSH Q8H PRN PRN Reason: Nausea and Vomiting Sodium Chloride (0.9 % Sodium Chloride Flush 3 Ml Syringe) 3 ml IVFLUSH QSHIFT [facility] Last Admin: 03/15/24 08:01 Dose: Not Given Documented By: ZOHREH Non-Admin Reason: No Access Labs 03/03/24 05:29 03/05/24 06:00 Assessment and Plan (1) Dementia: Status: Acute Plan 79yo M with Alzheimer's dementia + behavioral admitted to telemetry from for AMS, found to have sepsis from multifocal PNA pt on hospitalist service since 03/01/24 pt originally admitted to [facility] 01/02/24 but then sent to for sexual inappropriateness. Now awaiting long term care phlebotomist placement Sepsis d/t PNA, resolved. BCx negative, MRSA swab negative, given vanco + pip-shayne 03/01-03/04, finished ABX course with cefuroxime + azithro 03/04-03/08 for total of 7d Metabolic encephalopathy d/t above, resolved, back to baseline cognitive impairment Abdominal pain--presently without pain, imaging if recur 5cm epididymal cyst on R scrotum per Urology no intervention or further workup needed Alzheimer's dementia with behavioral disturbance continue fluoxetine, donepezil, memantine, prn olanzapine VTE ppx LMWH dispo Psychiatry will not take pt back stating that no further inpt psychiatric care is necessary so now he becomes a LTC placement issue. May downgrade to M/S need for inpatient: awaiting placement Quality Stroke Does the patient have a stroke diagnosis?: No VTE Prior VTE?: No VTE Risk Level:: Medical - moderate - high VTE Device Contraindication: Treatment Not Indicated VTE Drug Contraindication: N/A - Med Ordered
[2024-03-15 15:23] VITALS: BP 104/54; PULSE 81; RESP 16; TEMP 36.8; O2SAT 95
[2024-03-15 19:25] VITALS: BP 123/69; PULSE 78; RESP 20; TEMP 36.9; O2SAT 96
[2024-03-15] MEDS: Donepezil HCl 10 MG TABLET PO (20:47)
[2024-03-15] MEDS: Enoxaparin Sodium 40 MG/0.4 ML SYRINGE SUBCUT (22:00)
[2024-03-16 03:59] VITALS: BP 105/65; PULSE 69; RESP 20; TEMP 36.1; O2SAT 94
[2024-03-16 07:49] VITALS: BP 110/71; PULSE 71; RESP 18; TEMP 36.6; O2SAT 95
[2024-03-16] MEDS: Memantine HCl 10 MG TABLET PO ×2 (09:13→21:27)
[2024-03-16] MEDS: Folic Acid 1 MG TABLET PO (09:13)
[2024-03-16] MEDS: FLUoxetine HCl 20 MG CAPSULE PO (09:13)
--- NOTE | 2024-03-16 09:23 | MHC.CM.PN ---
CM attempted to call S.O/HCP/POA/Yuliana @ listed # but was only able to leave a detailed message. CM requested an update on any progress with selling Patient's house and/or financing for [facility] or any other [facility]. CM awaits a return call from Yuliana.
--- NOTE | 2024-03-16 10:35 | MHC.CLN ---
F/U PT IS UNDER WT FOR HT WITH 82% IBW RANGE INDICATES MILDLY UNDER WT; BMI 19 BORDERLINE WNL PO INTAKE EXCELLENT 75-100% CONSISTENTLY DIET RX: REGULAR-APPROPRIATE PT RECEIVING ENSURE BID TO INCREASE KCALS PROVIDES 700KCALS, 40G PROTEIN MONITOR PO INTAKE AND ENCOURAGE SUPPLEMENT RD TO FOLLOW WEEKLY PT AWAITING SNF PLACEMENT
--- NOTE | 2024-03-16 10:59 | P.PNIM_ITS ---
Subjective Subjective Date of Service: 03/17/24 Interval History: has pain in the knees Physical Exam 2 Vital Signs: Vital Signs: Last Vital Signs Temp 97.9 F 03/16/24 07:49 Pulse 71 03/16/24 07:49 Resp 18 03/16/24 07:49 BP 110/71 03/16/24 07:49 Pulse Ox 95 03/16/24 07:49 O2 Del Method Room Air 03/16/24 07:49 BMI result Body Mass Index 19.8 Const: Other: Constitutional : Awake, interactive, not in distress Neck : Normal inspection, Supple Cardiovascular : RRR, no JVP, no lower extremity edema Respiratory : bilateral air entry, basal fine crackles more on right side, no wheezes or rhonchi Gastrointestinal: soft, lax, Normal bowel sounds, Non tender Skin : Warm, Dry MSK: no swelling, redness or tenderness of the knee Neurological : Alert & oriented x1, No focal deficit Objective Data Active Medications Acetaminophen (Acetaminophen 325 Mg Tablet) 650 mg PO Q6H PRN PRN Reason: Headache/Pain Mild Scale (1-3) Al Hydroxide/Mg Hydroxide (Magnesium Hydrox/Alum Hydrox 30 Ml Oral.Susp) 30 ml PO Q6H PRN PRN Reason: Heartburn/Nausea Donepezil HCl (Donepezil Hcl 10 Mg Tablet) 10 mg PO BEDTIME [facility] Last Admin: 03/15/24 20:47 Dose: 10 mg Documented By: TOM Enoxaparin Sodium (Enoxaparin Sodium 40 Mg/0.4 Ml Syringe) 40 mg SUBCUT Q24H [facility] Last Admin: 03/15/24 22:00 Dose: 40 mg Documented By: TOM Fluoxetine HCl (Fluoxetine Hcl 20 Mg Capsule) 20 mg PO DAILY [facility] Last Admin: 03/16/24 09:13 Dose: 20 mg Documented By: DERREK Folic Acid (Folic Acid 1 Mg Tablet) 1 mg PO DAILY [facility] Last Admin: 03/16/24 09:13 Dose: 1 mg Documented By: DERREK Magnesium Hydroxide (Milk Of Magnesia 30 Ml Oral.Susp) 30 ml PO DAILY PRN PRN Reason: Constipation Magnesium Hydroxide (Milk Of Magnesia 30 Ml Oral.Susp) 30 ml PO DAILY PRN PRN Reason: Constipation Memantine (Memantine Hcl 10 Mg Tablet) 10 mg PO BID [facility] Last Admin: 03/16/24 09:13 Dose: 10 mg Documented By: DERREK Olanzapine (Olanzapine 2.5 Mg Tablet) 2.5 mg PO TID PRN PRN Reason: agitation Ondansetron HCl (Ondansetron Hcl 4 Mg/2 Ml Vial) 4 mg IVPUSH Q8H PRN PRN Reason: Nausea and Vomiting Sodium Chloride (0.9 % Sodium Chloride Flush 3 Ml Syringe) 3 ml IVFLUSH QSHIFT [facility] Last Admin: 03/16/24 09:53 Dose: Not Given Documented By: DERREK Non-Admin Reason: No Access Labs 03/03/24 05:29 03/05/24 06:00 Assessment and Plan (1) Dementia: Status: Acute Plan 79yo M with Alzheimer's dementia + behavioral admitted to telemetry from for AMS, found to have sepsis from multifocal PNA pt on hospitalist service since 03/01/24 pt originally admitted to [facility] 01/02/24 but then sent to for sexual inappropriateness. Now awaiting custodial placement Sepsis d/t PNA, resolved. BCx negative, MRSA swab negative, given vanco + pip- shayne 03/01-03/04, finished ABX course with cefuroxime + azithro 03/04-03/08 for total of 7d Metabolic encephalopathy d/t above, resolved, back to baseline cognitive impairment Abdominal pain--presently without pain, imaging if recur 5cm epididymal cyst on R scrotum per Urology no intervention or further workup needed Alzheimer's dementia with behavioral disturbance continue fluoxetine, donepezil, memantine, prn olanzapine Knee pain--likely from arthritis, tramadol PRN VTE ppx LMWH dispo Psychiatry will not take pt back stating that no further inpt psychiatric care is necessary so now he becomes a LTC placement issue. May downgrade to M/S need for inpatient: awaiting placement Quality Stroke Does the patient have a stroke diagnosis?: No VTE Prior VTE?: No VTE Risk Level:: Medical - moderate - high VTE Device Contraindication: Treatment Not Indicated VTE Drug Contraindication: N/A - Med Ordered
--- NOTE | 2024-03-16 13:08 | MHC.CM.PN ---
CM received a return call from S.O./HCP/POA/Yuliana. Yuliana is working with Olvin @ [facility], who can offer 2 months Respite, once Patient has one years worth of liquid assets in hand. Yuliana explained that the Patient's house is up for sale and the Realtor is bringing a potential Crematory Attendant to the house today. Yuliana is trying to negotiate with Horaceandrea, a way to get Patient placed at [facility], before the house is sold. DARIUSZ did explain that there is some urgency to this because Patient has been medically cleared for dc for some time. Yuliana has agreed to keep CM updated on the progress and sale of the home. CM will continue to follow.
[2024-03-16 15:16] VITALS: BP 114/63; PULSE 70; RESP 18; TEMP 36.8; O2SAT 95
[2024-03-16 19:55] VITALS: BP 102/58; PULSE 71; RESP 20; TEMP 37.2; O2SAT 94
[2024-03-16] MEDS: Enoxaparin Sodium 40 MG/0.4 ML SYRINGE SUBCUT (21:27)
[2024-03-16] MEDS: Donepezil HCl 10 MG TABLET PO (21:27)
[2024-03-16 23:45] VITALS: BP 112/67; PULSE 63; RESP 16; TEMP 36.2; O2SAT 93
[2024-03-17] VITALS (7 sets, daily range): BP systolic 95–123; BP diastolic 58–67; PULSE 61–77; RESP 16–18; TEMP 36.1–36.7; O2SAT 91–95
[2024-03-17] MEDS: Memantine HCl 10 MG TABLET PO ×2 (07:47→19:45)
[2024-03-17] MEDS: FLUoxetine HCl 20 MG CAPSULE PO (07:47)
[2024-03-17] MEDS: Folic Acid 1 MG TABLET PO (07:47)
--- NOTE | 2024-03-17 10:30 | P.PNIM_ITS ---
Subjective Subjective Date of Service: 03/17/24 Interval History: No new complaint Physical Exam 2 Vital Signs: Vital Signs: Last Vital Signs Temp 98.0 F 03/17/24 07:43 Pulse 72 03/17/24 07:43 Resp 18 03/17/24 07:43 BP 103/65 03/17/24 07:43 Pulse Ox 95 03/17/24 07:43 O2 Del Method Room Air 03/17/24 07:43 BMI result Body Mass Index 19.8 Const: Other: Constitutional : Awake, interactive, not in distress Neck : Normal inspection, Supple Cardiovascular : RRR, no JVP, no lower extremity edema Respiratory : bilateral air entry, basal fine crackles more on right side, no wheezes or rhonchi Gastrointestinal: soft, lax, Normal bowel sounds, Non tender Skin : Warm, Dry MSK: no swelling, redness or tenderness of the knee Neurological : Alert & oriented x1, No focal deficit Objective Data Active Medications Acetaminophen (Acetaminophen 325 Mg Tablet) 650 mg PO Q6H PRN PRN Reason: Headache/Pain Mild Scale (1-3) Al Hydroxide/Mg Hydroxide (Magnesium Hydrox/Alum Hydrox 30 Ml Oral.Susp) 30 ml PO Q6H PRN PRN Reason: Heartburn/Nausea Donepezil HCl (Donepezil Hcl 10 Mg Tablet) 10 mg PO BEDTIME [facility] Last Admin: 03/16/24 21:27 Dose: 10 mg Documented By: TOM Enoxaparin Sodium (Enoxaparin Sodium 40 Mg/0.4 Ml Syringe) 40 mg SUBCUT Q24H [facility] Last Admin: 03/16/24 21:27 Dose: 40 mg Documented By: TOM Fluoxetine HCl (Fluoxetine Hcl 20 Mg Capsule) 20 mg PO DAILY [facility] Last Admin: 03/17/24 07:47 Dose: 20 mg Documented By: DAYAMI Folic Acid (Folic Acid 1 Mg Tablet) 1 mg PO DAILY [facility] Last Admin: 03/17/24 07:47 Dose: 1 mg Documented By: DAYAMI Magnesium Hydroxide (Milk Of Magnesia 30 Ml Oral.Susp) 30 ml PO DAILY PRN PRN Reason: Constipation Magnesium Hydroxide (Milk Of Magnesia 30 Ml Oral.Susp) 30 ml PO DAILY PRN PRN Reason: Constipation Memantine (Memantine Hcl 10 Mg Tablet) 10 mg PO BID [facility] Last Admin: 03/17/24 07:47 Dose: 10 mg Documented By: DAYAMI Olanzapine (Olanzapine 2.5 Mg Tablet) 2.5 mg PO TID PRN PRN Reason: agitation Ondansetron HCl (Ondansetron Hcl 4 Mg/2 Ml Vial) 4 mg IVPUSH Q8H PRN PRN Reason: Nausea and Vomiting Sodium Chloride (0.9 % Sodium Chloride Flush 3 Ml Syringe) [facility] Admin: 03/17/24 07:49 Dose: Not Given Documented By: DAYAMI Non-Admin Reason: No Access Tramadol HCl (Tramadol Hcl 50 Mg Tablet) 25 mg PO Q6H PRN PRN Reason: Pain, Severe (Pain Scale 7-10) Labs 03/03/24 05:29 03/05/24 06:00 Assessment and Plan (1) Dementia: Status: Acute Plan 79yo M with Alzheimer's dementia + behavioral admitted to telemetry from for AMS, found to have sepsis from multifocal PNA pt on hospitalist service since 03/01/24 pt originally admitted to [facility] 01/02/24 but then sent to for sexual inappropriateness. Now awaiting technician terminal and repeater placement Sepsis d/t PNA, resolved. BCx negative, MRSA swab negative, given vanco + pip- shayne 03/01-03/04, finished ABX course with cefuroxime + azithro 03/04-03/08 for total of 7d Metabolic encephalopathy d/t above, resolved, back to baseline cognitive impairment Abdominal pain--presently without pain, imaging if recur 5cm epididymal cyst on R scrotum per Urology no intervention or further workup needed Alzheimer's dementia with behavioral disturbance continue fluoxetine, donepezil, memantine, prn olanzapine Knee pain--likely from arthritis, tramadol PRN VTE ppx LMWH dispo Psychiatry will not take pt back stating that no further inpt psychiatric care is necessary so now he becomes a LTC placement issue. May downgrade to M/S need for inpatient: awaiting placement Quality Stroke Does the patient have a stroke diagnosis?: No VTE Prior VTE?: No VTE Risk Level:: Medical - moderate - high VTE Device Contraindication: Treatment Not Indicated VTE Drug Contraindication: N/A - Med Ordered
[2024-03-17] MEDS: Donepezil HCl 10 MG TABLET PO (19:45)
[2024-03-17] MEDS: Enoxaparin Sodium 40 MG/0.4 ML SYRINGE SUBCUT (19:46)
[2024-03-18] VITALS: BP 118/65; PULSE 63; RESP 16; TEMP 36.7; O2SAT 93
[2024-03-18 03:48] VITALS: BP 119/60; PULSE 68; RESP 16; TEMP 36.5; O2SAT 94
[2024-03-18 08:00] VITALS: BP 112/63; PULSE 73; RESP 20; TEMP 36.4; O2SAT 93
[2024-03-18] MEDS: Folic Acid 1 MG TABLET PO (09:17)
[2024-03-18] MEDS: FLUoxetine HCl 20 MG CAPSULE PO (09:17)
[2024-03-18] MEDS: Memantine HCl 10 MG TABLET PO ×2 (09:18→20:33)
--- NOTE | 2024-03-18 09:30 | P.PNIM_ITS ---
Subjective Subjective Date of Service: 03/18/24 Interval History: eating breakfast, no new issues reported Physical Exam 2 Vital Signs: Vital Signs: Last Vital Signs Temp 97.6 F 03/18/24 08:00 Pulse 73 03/18/24 08:00 Resp 20 03/18/24 08:00 BP 112/63 03/18/24 08:00 Pulse Ox 93 03/18/24 08:00 O2 Del Method Room Air 03/18/24 08:00 BMI result Body Mass Index 19.8 Const: Other: Constitutional : Awake, interactive, not in distress Neck : Normal inspection, Supple Cardiovascular : RRR, no JVP, no lower extremity edema Respiratory : bilateral air entry, basal fine crackles more on right side, no wheezes or rhonchi Gastrointestinal: soft, lax, Normal bowel sounds, Non tender Skin : Warm, Dry MSK: no swelling, redness or tenderness of the knee Neurological : Alert & oriented x1, No focal deficit Objective Data Active Medications Acetaminophen (Acetaminophen 325 Mg Tablet) 650 mg PO Q6H PRN PRN Reason: Headache/Pain Mild Scale (1-3) Al Hydroxide/Mg Hydroxide (Magnesium Hydrox/Alum Hydrox 30 Ml Oral.Susp) 30 ml PO Q6H PRN PRN Reason: Heartburn/Nausea Donepezil HCl (Donepezil Hcl 10 Mg Tablet) 10 mg PO BEDTIME [facility] Last Admin: 03/17/24 19:45 Dose: 10 mg Documented By: TAMMY Enoxaparin Sodium (Enoxaparin Sodium 40 Mg/0.4 Ml Syringe) 40 mg SUBCUT Q24H [facility] Last Admin: 03/17/24 19:46 Dose: 40 mg Documented By: TAMMY Fluoxetine HCl (Fluoxetine Hcl 20 Mg Capsule) 20 mg PO DAILY [facility] Last Admin: 03/18/24 09:17 Dose: 20 mg Documented By: WENDY Folic Acid (Folic Acid 1 Mg Tablet) 1 mg PO DAILY [facility] Last Admin: 03/18/24 09:17 Dose: 1 mg Documented By: WENDY Magnesium Hydroxide (Milk Of Magnesia 30 Ml Oral.Susp) 30 ml PO DAILY PRN PRN Reason: Constipation Magnesium Hydroxide (Milk Of Magnesia 30 Ml Oral.Susp) 30 ml PO DAILY PRN PRN Reason: Constipation Memantine (Memantine Hcl 10 Mg Tablet) 10 mg PO BID [facility] Last Admin: 03/18/24 09:18 Dose: 10 mg Documented By: WENDY Olanzapine (Olanzapine 2.5 Mg Tablet) 2.5 mg PO TID PRN PRN Reason: agitation Ondansetron HCl (Ondansetron Hcl 4 Mg/2 Ml Vial) 4 mg IVPUSH Q8H PRN PRN Reason: Nausea and Vomiting Sodium Chloride (0.9 % Sodium Chloride Flush 3 Ml Syringe) 3 ml IVFLUSH QSHIFT [facility] Last Admin: 03/18/24 09:16 Dose: Not Given Documented By: WENDY Non-Admin Reason: No Access Tramadol HCl (Tramadol Hcl 50 Mg Tablet) 25 mg PO Q6H PRN PRN Reason: Pain, Severe (Pain Scale 7-10) Labs 03/03/24 05:29 03/05/24 06:00 Assessment and Plan (1) Dementia: Status: Acute Plan 79yo M with Alzheimer's dementia + behavioral admitted to telemetry from for AMS, found to have sepsis from multifocal PNA pt on hospitalist service since 03/01/24 pt originally admitted to [facility] 01/02/24 but then sent to for sexual inappropriateness. Now awaiting watermelon inspector placement no active issues today, awaiting placement Resolved/treated issues during hospitalization: Sepsis d/t PNA, resolved. BCx negative, MRSA swab negative, given vanco + pip- shayne 03/01-03/04, finished ABX course with cefuroxime + azithro 03/04-03/08 for total of 7d Metabolic encephalopathy d/t above, resolved, back to baseline cognitive impairment Abdominal pain--presently without pain, imaging if recur 5cm epididymal cyst on R scrotum per Urology no intervention or further workup needed Alzheimer's dementia with behavioral disturbance continue fluoxetine, donepezil, memantine, prn olanzapine Knee pain--likely from arthritis, tramadol PRN VTE ppx LMWH dispo Psychiatry will not take pt back stating that no further inpt psychiatric care is necessary so now he becomes a LTC placement issue. May downgrade to M/S need for inpatient: awaiting placement Quality Stroke Does the patient have a stroke diagnosis?: No VTE Prior VTE?: No VTE Risk Level:: Medical - moderate - high VTE Device Contraindication: Treatment Not Indicated VTE Drug Contraindication: N/A - Med Ordered
--- NOTE | 2024-03-18 10:18 | MHC.CM.PN ---
Goal is for dc to [facility] pending the sale of Patient's home by his HCP/POA/S.O./Yuliana, which will provide the finances for Patient to be able to afford KEENA[facility]. CM will follow.
[2024-03-18 11:46] VITALS: BP 106/62; PULSE 66; RESP 20; TEMP 36.2; O2SAT 94
[2024-03-18 15:32] VITALS: BP 101/64; PULSE 78; RESP 18; TEMP 37.1; O2SAT 96
[2024-03-18 20:00] VITALS: BP 112/55; PULSE 75; RESP 16; TEMP 36.7; O2SAT 95
[2024-03-18] MEDS: Donepezil HCl 10 MG TABLET PO (20:33)
[2024-03-18] MEDS: Enoxaparin Sodium 40 MG/0.4 ML SYRINGE SUBCUT (20:35)
[2024-03-19 04:00] VITALS: BP 121/59; PULSE 77; RESP 16; TEMP 36.1; O2SAT 95
--- NOTE | 2024-03-19 07:31 | HO.PM.IMPN ---
Subjective Subjective Date of Service: 03/19/24 Interval History: Seen in follow up this am, awaiting placement Interval history: no complaints Review of Systems Review of Systems: Yes all other systems are reviewed and are negative Physical Exam Vital Signs: Vital Signs: Last Vital Signs Temp 97 F 03/19/24 04:00 Pulse 77 03/19/24 04:00 Resp 16 03/19/24 04:00 BP 121/59 L 03/19/24 04:00 Pulse Ox 95 03/19/24 04:00 O2 Del Method Room Air 03/19/24 04:00 BMI result Body Mass Index 19.8 Constitutional - Awake and Alert, No apparent distress Eyes - PERRLA, EOMI Cardiovascular - S1S2, RRR, No edema Respiratory - Normal lung expansion, Normal respiratory effort, No respiratory distress, CTA bilaterally Extremities - no calf tenderness bilaterally, no swelling Skin - Warm/Dry Neurological - Alert & oriented to self Psychological - Appropriate affect Objective Data Active Medications Acetaminophen (Acetaminophen 325 Mg Tablet) 650 mg PO Q6H PRN PRN Reason: Headache/Pain Mild Scale (1-3) Al Hydroxide/Mg Hydroxide (Magnesium Hydrox/Alum Hydrox 30 Ml Oral.Susp) 30 ml PO Q6H PRN PRN Reason: Heartburn/Nausea Donepezil HCl (Donepezil Hcl 10 Mg Tablet) 10 mg PO BEDTIME [facility] Last Admin: 03/18/24 20:33 Dose: 10 mg Documented By: ALDAIR Enoxaparin Sodium (Enoxaparin Sodium 40 Mg/0.4 Ml Syringe) 40 mg SUBCUT Q24H [facility] Last Admin: 03/18/24 20:35 Dose: 40 mg Documented By: ALDAIR Comments: pt requested shot early Fluoxetine HCl (Fluoxetine Hcl 20 Mg Capsule) 20 mg PO DAILY [facility] Last Admin: 03/18/24 09:17 Dose: 20 mg Documented By: WENDY Folic Acid (Folic Acid 1 Mg Tablet) 1 mg PO DAILY [facility] Last Admin: 03/18/24 09:17 Dose: 1 mg Documented By: WENDY Magnesium Hydroxide (Milk Of Magnesia 30 Ml Oral.Susp) 30 ml PO DAILY PRN PRN Reason: Constipation Magnesium Hydroxide (Milk Of Magnesia 30 Ml Oral.Susp) 30 ml PO DAILY PRN PRN Reason: Constipation Memantine (Memantine Hcl 10 Mg Tablet) 10 mg PO BID [facility] Last Admin: 03/18/24 20:33 Dose: 10 mg Documented By: ALDAIR Olanzapine (Olanzapine 2.5 Mg Tablet) 2.5 mg PO TID PRN PRN Reason: agitation Ondansetron HCl (Ondansetron Hcl 4 Mg/2 Ml Vial) 4 mg IVPUSH Q8H PRN PRN Reason: Nausea and Vomiting Sodium Chloride (0.9 % Sodium Chloride Flush 3 Ml Syringe) 3 ml IVFLUSH QSHIFT [facility] Last Admin: 03/19/24 00:00 Dose: Not Given Documented By: ALDAIR Non-Admin Reason: No Access Tramadol HCl (Tramadol Hcl 50 Mg Tablet) 25 mg PO Q6H PRN PRN Reason: Pain, Severe (Pain Scale 7-10) Labs 03/03/24 05:29 03/05/24 06:00 Assessment and Plan (1) Dementia: Status: Acute Plan 79yo M with Alzheimer's dementia + behavioral admitted to telemetry from for AMS, found to have sepsis from multifocal PNA pt on hospitalist service since 03/01/24 pt originally admitted to [facility] 01/02/24 but then sent to for sexual inappropriateness. Now awaiting exterminator termite placement no active issues today, awaiting placement Resolved/treated issues during hospitalization: Sepsis d/t PNA, resolved. BCx negative, MRSA swab negative, given vanco + pip-shayne 03/01-03/04, finished ABX course with cefuroxime + azithro 03/04-03/08 for total of 7d Metabolic encephalopathy d/t above, resolved, back to baseline cognitive impairment Abdominal pain--presently without pain, imaging if recur 5cm epididymal cyst on R scrotum per Urology no intervention or further workup needed Alzheimer's dementia with behavioral disturbance continue fluoxetine, donepezil, memantine, prn olanzapine Knee pain--likely from arthritis, tramadol PRN VTE ppx LMWH dispo Psychiatry will not take pt back stating that no further inpt psychiatric care is necessary so now he becomes a LTC placement issue. May downgrade to M/S need for inpatient: awaiting placement Quality Stroke Does the patient have a stroke diagnosis?: No VTE Prior VTE?: No VTE Risk Level:: Medical - moderate - high VTE Device Contraindication: Treatment Not Indicated VTE Drug Contraindication: N/A - Med Ordered
[2024-03-19 08:00] VITALS: BP 113/65; PULSE 55; RESP 16; TEMP 36.2; O2SAT 93
[2024-03-19] MEDS: Memantine HCl 10 MG TABLET PO ×2 (08:49→20:07)
[2024-03-19] MEDS: FLUoxetine HCl 20 MG CAPSULE PO (08:49)
[2024-03-19] MEDS: Folic Acid 1 MG TABLET PO (08:49)
[2024-03-19 15:04] VITALS: BP 105/58; PULSE 104; RESP 20; TEMP 36.3; O2SAT 95
[2024-03-19 19:05] VITALS: BP 100/59; PULSE 89; RESP 20; TEMP 36.1; O2SAT 95
[2024-03-19] MEDS: Donepezil HCl 10 MG TABLET PO (20:07)
[2024-03-19] MEDS: Enoxaparin Sodium 40 MG/0.4 ML SYRINGE SUBCUT (20:10)
[2024-03-20 00:39] VITALS: BP 124/67; PULSE 63; RESP 16; TEMP 36.4; O2SAT 95
[2024-03-20 04:00] VITALS: BP 116/63; PULSE 72; RESP 16; TEMP 36.2; O2SAT 97
[2024-03-20 07:07] LABS: Anion Gap 11 (12-20); Blood Urea Nitrogen 18 mg/dL (9-16); Calcium 9.3 mg/dL (8.4-10.2); Carbon Dioxide 26 mmol/L (22-29); Chloride 105 mmol/L (96-108); Creatinine Clr Calc Pharmacy 65.7; Estimated Glomerular Filt Rate > 60; Glucose Random 98 mg/dL (60-115); Potassium 4.1 mmol/L (3.3-5.1); Sodium 138 mmol/L (135-145)
--- NOTE | 2024-03-20 07:16 | HO.PM.IMPN ---
Subjective Subjective Date of Service: 03/20/24 Interval History: Seen in follow up this am, awaiting placement Interval history: reports ST, runny nose. No dysphagia, fevers, congestion, cough, sob, cp. Sitting up in chair eating breakfast Review of Systems Review of Systems: Yes all other systems are reviewed and are negative Physical Exam Vital Signs: Vital Signs: Last Vital Signs Temp 97.6 F 03/20/24 00:39 Pulse 63 03/20/24 00:39 Resp 16 03/20/24 00:39 BP 124/67 03/20/24 00:39 Pulse Ox 95 03/20/24 00:39 O2 Del Method Room Air 03/20/24 00:39 BMI result Body Mass Index 19.8 Constitutional - Awake and Alert, No apparent distress Eyes - PERRLA, EOMI Mouth/throat- no erythema/edema/exudates Cardiovascular - S1S2, RRR, No edema Respiratory - Normal lung expansion, Normal respiratory effort, No respiratory distress, CTA bilaterally Extremities - no calf tenderness bilaterally, no swelling Skin - Warm/Dry Neurological - Alert & oriented x3 Psychological - Appropriate affect Objective Data Active Medications Acetaminophen (Acetaminophen 325 Mg Tablet) 650 mg PO Q6H PRN PRN Reason: Headache/Pain Mild Scale (1-3) Al Hydroxide/Mg Hydroxide (Magnesium Hydrox/Alum Hydrox 30 Ml Oral.Susp) 30 ml PO Q6H PRN PRN Reason: Heartburn/Nausea Donepezil HCl (Donepezil Hcl 10 Mg Tablet) 10 mg PO BEDTIME [facility] Last Admin: 03/19/24 20:07 Dose: 10 mg Documented By: ALDAIR Enoxaparin Sodium (Enoxaparin Sodium 40 Mg/0.4 Ml Syringe) 40 mg SUBCUT Q24H [facility] Last Admin: 03/19/24 20:10 Dose: 40 mg Documented By: ALDAIR Comments: PER PT REQ GIVEN @ SAME TIME SCHEDULED PO MEDS Fluoxetine HCl (Fluoxetine Hcl 20 Mg Capsule) 20 mg PO DAILY [facility] Last Admin: 03/19/24 08:49 Dose: 20 mg Documented By: ALLAN Folic Acid (Folic Acid 1 Mg Tablet) 1 mg PO DAILY [facility] Last Admin: 03/19/24 08:49 Dose: 1 mg Documented By: ALLAN Magnesium Hydroxide (Milk Of Magnesia 30 Ml Oral.Susp) 30 ml PO DAILY PRN PRN Reason: Constipation Magnesium Hydroxide (Milk Of Magnesia 30 Ml Oral.Susp) 30 ml PO DAILY PRN PRN Reason: Constipation Memantine (Memantine Hcl 10 Mg Tablet) 10 mg PO BID [facility] Last Admin: 03/19/24 20:07 Dose: 10 mg Documented By: ALDAIR Olanzapine (Olanzapine 2.5 Mg Tablet) 2.5 mg PO TID PRN PRN Reason: agitation Ondansetron HCl (Ondansetron Hcl 4 Mg/2 Ml Vial) 4 mg IVPUSH Q8H PRN PRN Reason: Nausea and Vomiting Sodium Chloride (0.9 % Sodium Chloride Flush 3 Ml Syringe) 3 ml IVFLUSH QSHIFT [facility] Last Admin: 03/19/24 20:10 Dose: Not Given Documented By: ALDAIR Non-Admin Reason: No Access Tramadol HCl (Tramadol Hcl 50 Mg Tablet) 25 mg PO Q6H PRN PRN Reason: Pain, Severe (Pain Scale 7-10) Labs 03/03/24 05:29 03/20/24 06:23 Labs: Laboratory Results - last 24 hr 03/20/24 06:23 Anion Gap 11 L Estim Creat Clear Calc 65.7 Estimated GFR > 60 Random Glucose 98 Calcium 9.3 D Assessment and Plan (1) Dementia: Status: Acute Plan 79yo M with Alzheimer's dementia + behavioral admitted to telemetry from for AMS, found to have sepsis from multifocal PNA pt on hospitalist service since 03/01/24 pt originally admitted to [facility] 01/02/24 but then sent to for sexual inappropriateness. Now awaiting prison placement awaiting placement reporting ST- no fevers, associated symptoms -check strep A, covid/flu/rsv Resolved/treated issues during hospitalization: Sepsis d/t PNA, resolved. BCx negative, MRSA swab negative, given vanco + pip-shayne 03/01-03/04, finished ABX course with cefuroxime + azithro 03/04-03/08 for total of 7d Metabolic encephalopathy d/t above, resolved, back to baseline cognitive impairment Abdominal pain--presently without pain, imaging if recur 5cm epididymal cyst on R scrotum per Urology no intervention or further workup needed Alzheimer's dementia with behavioral disturbance continue fluoxetine, donepezil, memantine, prn olanzapine Knee pain--likely from arthritis, tramadol PRN VTE ppx LMWH dispo Psychiatry will not take pt back stating that no further inpt psychiatric care is necessary so now he becomes a LTC placement issue. May downgrade to M/S need for inpatient: awaiting placement Quality Stroke Does the patient have a stroke diagnosis?: No VTE Prior VTE?: No VTE Risk Level:: Medical - moderate - high VTE Device Contraindication: Treatment Not Indicated VTE Drug Contraindication: N/A - Med Ordered
[2024-03-20 08:00] VITALS: BP 101/64; PULSE 87; RESP 18; TEMP 36.3; O2SAT 96
[2024-03-20] MEDS: Folic Acid 1 MG TABLET PO (08:59)
[2024-03-20] MEDS: Memantine HCl 10 MG TABLET PO ×2 (08:59→21:34)
[2024-03-20] MEDS: FLUoxetine HCl 20 MG CAPSULE PO (08:59)
[2024-03-20 10:57] LABS: Influenza A PCR NEGATIVE (Negative); Influenza B PCR NEGATIVE (Negative); Resp Syncy Virus RNA Qual PCR NEGATIVE (Negative); SARS COV2 PCR INHOUSE NEGATIVE (Negative)
[2024-03-20 16:00] VITALS: BP 116/60; PULSE 87; RESP 18; TEMP 36.5; O2SAT 94
[2024-03-20 17:46] LABS: IDNOW Serial# 08D9AD1C; Strep A Nucleic Acid Negative (Negative)
[2024-03-20 20:00] VITALS: BP 112/55; PULSE 66; RESP 18; TEMP 36.3; O2SAT 97
[2024-03-20] MEDS: Donepezil HCl 10 MG TABLET PO (21:34)
[2024-03-20] MEDS: Enoxaparin Sodium 40 MG/0.4 ML SYRINGE SUBCUT (21:36)
[2024-03-20] MEDS: Simethicone 80 MG TAB.CHEW PO (22:30)
[2024-03-21 03:52] VITALS: BP 109/64; PULSE 54; RESP 18; TEMP 36.3; O2SAT 93
[2024-03-21 08:00] VITALS: BP 128/61; PULSE 68; RESP 20; TEMP 36.7; O2SAT 93
[2024-03-21] MEDS: FLUoxetine HCl 20 MG CAPSULE PO (08:36)
[2024-03-21] MEDS: Memantine HCl 10 MG TABLET PO ×2 (08:36→20:19)
[2024-03-21] MEDS: Folic Acid 1 MG TABLET PO (08:36)
--- NOTE | 2024-03-21 10:31 | MHC.CM.PN ---
Extensive SNF search updated; there are no bed offers. CM will follow.
--- NOTE | 2024-03-21 11:37 | HO.PM.IMPN ---
Subjective Subjective Date of Service: 03/21/24 Interval History: Seen in follow up this am, awaiting placement Interval history: Sore throat and running nose from prior day better, Physical Exam Vital Signs: Vital Signs: Last Vital Signs Temp 98.1 F 03/21/24 08:00 Pulse 68 03/21/24 08:00 Resp 20 03/21/24 08:00 BP 128/61 03/21/24 08:00 Pulse Ox 93 03/21/24 08:00 O2 Del Method Room Air 03/21/24 08:00 BMI result Body Mass Index 19.8 Objective Data Active Medications Acetaminophen (Acetaminophen 325 Mg Tablet) 650 mg PO Q6H PRN PRN Reason: Headache/Pain Mild Scale (1-3) Al Hydroxide/Mg Hydroxide (Magnesium Hydrox/Alum Hydrox 30 Ml Oral.Susp) 30 ml PO Q6H PRN PRN Reason: Heartburn/Nausea Donepezil HCl (Donepezil Hcl 10 Mg Tablet) 10 mg PO BEDTIME [facility] Last Admin: 03/20/24 21:34 Dose: 10 mg Documented By: YULIET Enoxaparin Sodium (Enoxaparin Sodium 40 Mg/0.4 Ml Syringe) 40 mg SUBCUT Q24H [facility] Last Admin: 03/20/24 21:36 Dose: 40 mg Documented By: YULIET Fluoxetine HCl (Fluoxetine Hcl 20 Mg Capsule) 20 mg PO DAILY [facility] Last Admin: 03/21/24 08:36 Dose: 20 mg Documented By: DAVY Folic Acid (Folic Acid 1 Mg Tablet) 1 mg PO DAILY [facility] Last Admin: 03/21/24 08:36 Dose: 1 mg Documented By: DAVY Magnesium Hydroxide (Milk Of Magnesia 30 Ml Oral.Susp) 30 ml PO DAILY PRN PRN Reason: Constipation Magnesium Hydroxide (Milk Of Magnesia 30 Ml Oral.Susp) 30 ml PO DAILY PRN PRN Reason: Constipation Memantine (Memantine Hcl 10 Mg Tablet) 10 mg PO BID [facility] Last Admin: 03/21/24 08:36 Dose: 10 mg Documented By: DAVY Olanzapine (Olanzapine 2.5 Mg Tablet) 2.5 mg PO TID PRN PRN Reason: agitation Ondansetron HCl (Ondansetron Hcl 4 Mg/2 Ml Vial) 4 mg IVPUSH Q8H PRN PRN Reason: Nausea and Vomiting Simethicone (Simethicone 80 Mg Tab.Chew) 80 mg PO QIDWMHS PRN PRN Reason: Gas Last Admin: 03/20/24 22:30 Dose: 80 mg Documented By: YULIET Sodium Chloride (0.9 % Sodium Chloride Flush 3 Ml Syringe) 3 ml IVFLUSH QSHIFT [facility] Last Admin: 03/21/24 08:36 Dose: Not Given Documented By: DAVY Non-Admin Reason: No Access Labs 03/03/24 05:29 03/20/24 06:23 Labs: Laboratory Results - last 24 hr 03/20/24 17:15 S. pyogenes GrpA SYLVIE Negative Assessment and Plan (1) Dementia: Status: Acute Plan 79yo M with Alzheimer's dementia + behavioral admitted to telemetry from for AMS, found to have sepsis from multifocal PNA pt on hospitalist service since 03/01/24 pt originally admitted to [facility] 01/02/24 but then sent to for sexual inappropriateness. 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 BCx negative, MRSA swab negative, given vanco + pip-shayne 03/01-03/04, finished ABX course with cefuroxime + azithro 03/04-03/08 for total of 7d Metabolic encephalopathy d/t above, resolved, back to baseline cognitive impairment Abdominal pain--presently without pain, imaging if recur 5cm epididymal cyst on R scrotum per Urology no intervention or further workup needed Alzheimer's dementia with behavioral disturbance continue fluoxetine, donepezil, memantine, prn olanzapine Knee pain--likely from arthritis, tramadol PRN VTE ppx LMWH dispo Psychiatry will not take pt back stating that no further inpt psychiatric care is necessary so now he becomes a LTC placement issue. May downgrade to M/S need for inpatient: awaiting placement Quality Stroke Does the patient have a stroke diagnosis?: No VTE Prior VTE?: No VTE Risk Level:: Medical - moderate - high VTE Device Contraindication: Treatment Not Indicated VTE Drug Contraindication: N/A - Med Ordered
[2024-03-21 16:00] VITALS: BP 97/51; PULSE 95; RESP 18; TEMP 36.5; O2SAT 93
[2024-03-21 20:00] VITALS: BP 126/76; PULSE 94; RESP 16; TEMP 37.1; O2SAT 94
[2024-03-21] MEDS: Donepezil HCl 10 MG TABLET PO (20:19)
[2024-03-21] MEDS: Enoxaparin Sodium 40 MG/0.4 ML SYRINGE SUBCUT (20:19)
[2024-03-22 03:23] VITALS: BP 137/70; PULSE 64; RESP 16; TEMP 36.2; O2SAT 95
[2024-03-22 07:24] VITALS: BP 98/65; PULSE 65; RESP 18; TEMP 36.3; O2SAT 95
[2024-03-22] MEDS: FLUoxetine HCl 20 MG CAPSULE PO (07:36)
[2024-03-22] MEDS: Memantine HCl 10 MG TABLET PO ×2 (07:36→20:46)
[2024-03-22] MEDS: Folic Acid 1 MG TABLET PO (07:36)
--- NOTE | 2024-03-22 09:35 | HO.PM.IMPN ---
Subjective Subjective Date of Service: 03/22/24 Interval History: Seen in follow up this am, awaiting placement Interval history: Sore throat and running nose from prior day better, Physical Exam Vital Signs: Vital Signs: Last Vital Signs Temp 97.3 F 03/22/24 07:24 Pulse 65 03/22/24 07:24 Resp 18 03/22/24 07:24 BP 98/65 03/22/24 07:24 Pulse Ox 95 03/22/24 07:24 O2 Del Method Room Air 03/22/24 07:24 BMI result Body Mass Index 19.8 Constitutional - Awake and Alert, No apparent distress Eyes - PERRLA, EOMI Mouth/throat- no erythema/edema/exudates Cardiovascular - S1S2, RRR, No edema Respiratory - Normal lung expansion, Normal respiratory effort, No respiratory distress, CTA bilaterally Extremities - no calf tenderness bilaterally, no swelling Skin - Warm/Dry Neurological - Alert & oriented x3 Psychological - Appropriate affect Objective Data Active Medications Acetaminophen (Acetaminophen 325 Mg Tablet) 650 mg PO Q6H PRN PRN Reason: Headache/Pain Mild Scale (1-3) Al Hydroxide/Mg Hydroxide (Magnesium Hydrox/Alum Hydrox 30 Ml Oral.Susp) 30 ml PO Q6H PRN PRN Reason: Heartburn/Nausea Donepezil HCl (Donepezil Hcl 10 Mg Tablet) 10 mg PO BEDTIME [facility] Last Admin: 03/21/24 20:19 Dose: 10 mg Documented By: ALDAIR Enoxaparin Sodium (Enoxaparin Sodium 40 Mg/0.4 Ml Syringe) 40 mg SUBCUT Q24H [facility] Last Admin: 03/21/24 20:19 Dose: 40 mg Documented By: ALDAIR Fluoxetine HCl (Fluoxetine Hcl 20 Mg Capsule) 20 mg PO DAILY [facility] Last Admin: 03/22/24 07:36 Dose: 20 mg Documented By: JASWINDER Folic Acid (Folic Acid 1 Mg Tablet) 1 mg PO DAILY [facility] Last Admin: 03/22/24 07:36 Dose: 1 mg Documented By: JASWINDER Magnesium Hydroxide (Milk Of Magnesia 30 Ml Oral.Susp) 30 ml PO DAILY PRN PRN Reason: Constipation Magnesium Hydroxide (Milk Of Magnesia 30 Ml Oral.Susp) 30 ml PO DAILY PRN PRN Reason: Constipation Memantine (Memantine Hcl 10 Mg Tablet) 10 mg PO BID [facility] Last Admin: 03/22/24 07:36 Dose: 10 mg Documented By: JASWINDER Olanzapine (Olanzapine 2.5 Mg Tablet) 2.5 mg PO TID PRN PRN Reason: agitation Ondansetron HCl (Ondansetron Hcl 4 Mg/2 Ml Vial) 4 mg IVPUSH Q8H PRN PRN Reason: Nausea and Vomiting Simethicone (Simethicone 80 Mg Tab.Chew) 80 mg PO QIDWMHS PRN PRN Reason: Gas Last Admin: 03/20/24 22:30 Dose: 80 mg Documented By: YULIET Sodium Chloride (0.9 % Sodium Chloride Flush 3 Ml Syringe) 3 ml IVFLUSH QSHIFT [facility] Last Admin: 03/22/24 07:36 Dose: Not Given Documented By: JASWINDER Non-Admin Reason: No Access Labs 03/03/24 05:29 03/20/24 06:23 Assessment and Plan (1) Dementia: Status: Acute Plan 79yo M with Alzheimer's dementia + behavioral admitted to telemetry from for AMS, found to have sepsis from multifocal PNA pt on hospitalist service since 03/01/24 pt originally admitted to [facility] 01/02/24 but then sent to for sexual inappropriateness. 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 BCx negative, MRSA swab negative, given vanco + pip-shayne 03/01-03/04, finished ABX course with cefuroxime + azithro 03/04-03/08 for total of 7d Metabolic encephalopathy d/t above, resolved, back to baseline cognitive impairment Abdominal pain--presently without pain, imaging if recur Sore throat- no fevers, associated symptoms, resolved strep A, covid/flu/rsv--negative 5cm epididymal cyst on R scrotum per Urology no intervention or further workup needed Alzheimer's dementia with behavioral disturbance continue fluoxetine, donepezil, memantine, prn olanzapine Knee pain--likely from arthritis, tramadol PRN VTE ppx LMWH dispo Psychiatry will not take pt back stating that no further inpt psychiatric care is necessary so now he becomes a LTC placement issue. May downgrade to M/S need for inpatient: awaiting placement Quality Stroke Does the patient have a stroke diagnosis?: No VTE Prior VTE?: No VTE Risk Level:: Medical - moderate - high VTE Device Contraindication: Treatment Not Indicated VTE Drug Contraindication: N/A - Med Ordered
[2024-03-22 16:00] VITALS: BP 99/60; PULSE 74; RESP 20; TEMP 36.8; O2SAT 93
[2024-03-22 18:30] VITALS: BP 98/60
--- NOTE | 2024-03-22 19:06 | PC.NURSE ---
Blood pressure in 90's systolic this shift. Dr Pink notified pt asymptomatic resting in chair. Per MD continue to monitor.
[2024-03-22 20:00] VITALS: BP 118/68; PULSE 79; RESP 18; TEMP 36.7; O2SAT 96
[2024-03-22] MEDS: Enoxaparin Sodium 40 MG/0.4 ML SYRINGE SUBCUT (20:46)
[2024-03-22] MEDS: Donepezil HCl 10 MG TABLET PO (20:46)
[2024-03-23 03:35] VITALS: BP 109/65; PULSE 57; RESP 18; TEMP 36.4; O2SAT 96
[2024-03-23 07:43] VITALS: BP 106/69; PULSE 73; RESP 20; TEMP 36.2; O2SAT 98
[2024-03-23] MEDS: Memantine HCl 10 MG TABLET PO ×2 (08:20→19:28)
[2024-03-23] MEDS: Folic Acid 1 MG TABLET PO (08:20)
[2024-03-23] MEDS: FLUoxetine HCl 20 MG CAPSULE PO (08:20)
--- NOTE | 2024-03-23 09:06 | MHC.CLN ---
F/U PO INTAKE EXCELLENT 75-100% CONSISTENTLY DIET RX: REGULAR-APPROPRIATE PT RECEIVING ENSURE BID TO INCREASE KCALS PROVIDES 700KCALS, 40G PROTEIN MONITOR PO INTAKE AND ENCOURAGE SUPPLEMENT RD TO FOLLOW WEEKLY PT AWAITING SNF PLACEMENT
--- NOTE | 2024-03-23 10:18 | MHC.CM.PN ---
Patient has been denied SNF/LTC by all referrals sent; CM awaits word from the S.O./HCP/POA/Yuliana that Patient's house has been sold and that Patient now has the financial means to go to [facility]. CM will continue to follow.
--- NOTE | 2024-03-23 12:24 | P.PNIM_ITS ---
Subjective Subjective Date of Service: 03/23/24 Interval History: Seen in follow up this am, awaiting placement Interval history: Doing well and has no new complaint Physical Exam 2 Vital Signs: Vital Signs: Last Vital Signs Temp 97.2 F 03/23/24 07:43 Pulse 73 03/23/24 07:43 Resp 20 03/23/24 07:43 BP 106/69 03/23/24 07:43 Pulse Ox 98 03/23/24 07:43 O2 Del Method Room Air 03/23/24 07:43 BMI result Body Mass Index 19.8 Constitutional - Awake and Alert, No apparent distress , very pleasant Eyes - PERRLA, EOMI Mouth/throat- no erythema/edema/exudates Cardiovascular - S1S2, RRR, No edema Respiratory - Normal lung expansion, Normal respiratory effort, No respiratory distress, CTA bilaterally Extremities - no calf tenderness bilaterally, no swelling Skin - Warm/Dry Neurological - Alert & oriented x3 Psychological - Appropriate affect Objective Data Active Medications Acetaminophen (Acetaminophen 325 Mg Tablet) 650 mg PO Q6H PRN PRN Reason: Headache/Pain Mild Scale (1-3) Al Hydroxide/Mg Hydroxide (Magnesium Hydrox/Alum Hydrox 30 Ml Oral.Susp) 30 ml PO Q6H PRN PRN Reason: Heartburn/Nausea Donepezil HCl (Donepezil Hcl 10 Mg Tablet) 10 mg PO BEDTIME [facility] Last Admin: 03/22/24 20:46 Dose: 10 mg Documented By: ALDAIR Enoxaparin Sodium (Enoxaparin Sodium 40 Mg/0.4 Ml Syringe) 40 mg SUBCUT Q24H [facility] Last Admin: 03/22/24 20:46 Dose: 40 mg Documented By: ALDAIR Comments: given early with other meds per pt req Fluoxetine HCl (Fluoxetine Hcl 20 Mg Capsule) 20 mg PO DAILY [facility] Last Admin: 03/23/24 08:20 Dose: 20 mg Documented By: JASWINDER Folic Acid (Folic Acid 1 Mg Tablet) 1 mg PO DAILY [facility] Last Admin: 03/23/24 08:20 Dose: 1 mg Documented By: JASWINDER Magnesium Hydroxide (Milk Of Magnesia 30 Ml Oral.Susp) 30 ml PO DAILY PRN PRN Reason: Constipation Memantine (Memantine Hcl 10 Mg Tablet) 10 mg PO BID [facility] Last Admin: 03/23/24 08:20 Dose: 10 mg Documented By: JASWINDER Olanzapine (Olanzapine 2.5 Mg Tablet) 2.5 mg PO TID PRN PRN Reason: agitation Ondansetron HCl (Ondansetron Hcl 4 Mg/2 Ml Vial) 4 mg IVPUSH Q8H PRN PRN Reason: Nausea and Vomiting Simethicone (Simethicone 80 Mg Tab.Chew) 80 mg PO QIDWMHS PRN PRN Reason: Gas Last Admin: 03/20/24 22:30 Dose: 80 mg Documented By: YULIET Sodium Chloride (0.9 % Sodium Chloride Flush 3 Ml Syringe) 3 ml IVFLUSH QSHIFT [facility] Last Admin: 03/23/24 08:21 Dose: Not Given Documented By: JASWINDER Non-Admin Reason: No Access Labs 03/03/24 05:29 03/20/24 06:23 Assessment and Plan (1) Dementia: Status: Acute Plan 79yo M with Alzheimer's dementia + behavioral admitted to telemetry from for AMS, found to have sepsis from multifocal PNA pt on hospitalist service since 03/01/24 pt originally admitted to [facility] 01/02/24 but then sent to for sexual inappropriateness. Now awaiting halfway placement awaiting placement Resolved/treated issues during hospitalization: Sepsis d/t PNA, resolved. BCx negative, MRSA swab negative, given vanco + pip- shayne 03/01-03/04, finished ABX course with cefuroxime + azithro 03/04-03/08 for total of 7d Metabolic encephalopathy d/t above, resolved, back to baseline cognitive impairment Abdominal pain--presently without pain, imaging if recur Sore throat- no fevers, associated symptoms, resolved strep A, covid/flu/rsv--negative 5cm epididymal cyst on R scrotum per Urology no intervention or further workup needed Alzheimer's dementia with behavioral disturbance continue fluoxetine, donepezil, memantine, prn olanzapine Knee pain--likely from arthritis, tramadol PRN BP on lower side, assymptomatic and appear to be his baseline VTE ppx LMWH dispo Psychiatry will not take pt back stating that no further inpt psychiatric care is necessary so now he becomes a LTC placement issue. May downgrade to /S need for inpatient: awaiting placement Periodic lab chec particulary BMP Quality Stroke Does the patient have a stroke diagnosis?: No VTE Prior VTE?: No VTE Risk Level:: Medical - moderate - high VTE Device Contraindication: Treatment Not Indicated VTE Drug Contraindication: N/A - Med Ordered
--- NOTE | 2024-03-23 13:02 | MHC.CM.PN ---
CM received a message from Patient's S.O/HCP/Yuliana; she is touring [facility] and re-touring [facility] next week.CM will follow.
[2024-03-23 14:59] VITALS: BP 122/69; PULSE 82; RESP 20; TEMP 36.9; O2SAT 94
[2024-03-23] MEDS: Donepezil HCl 10 MG TABLET PO (19:28)
[2024-03-23 20:00] VITALS: BP 95/57; PULSE 77; RESP 16; TEMP 37; O2SAT 94
[2024-03-23] MEDS: Enoxaparin Sodium 40 MG/0.4 ML SYRINGE SUBCUT (20:46)
[2024-03-24 04:00] VITALS: BP 115/57; PULSE 53; RESP 18; TEMP 36.6; O2SAT 96
[2024-03-24 07:34] VITALS: BP 120/64; PULSE 60; RESP 18; TEMP 36.6; O2SAT 95
[2024-03-24] MEDS: Folic Acid 1 MG TABLET PO (08:45)
[2024-03-24] MEDS: Memantine HCl 10 MG TABLET PO ×2 (08:45→20:39)
[2024-03-24] MEDS: FLUoxetine HCl 20 MG CAPSULE PO (08:45)
--- NOTE | 2024-03-24 11:47 | P.PNIM_ITS ---
Subjective Subjective Date of Service: 03/24/24 Interval History: Seen in follow up this am, awaiting placement Interval history: Feels fne and offers no new complaint\ Physical Exam 2 Vital Signs: Vital Signs: Last Vital Signs Temp 97.9 F 03/24/24 07:34 Pulse 60 03/24/24 07:34 Resp 18 03/24/24 07:34 BP 120/64 03/24/24 07:34 Pulse Ox 95 03/24/24 07:34 O2 Del Method Room Air 03/24/24 07:34 BMI result Body Mass Index 19.8 Constitutional - Awake and Alert, No apparent distress , very pleasant Eyes - PERRLA, EOMI Mouth/throat- no erythema/edema/exudates Cardiovascular - S1S2, RRR, No edema Respiratory - Normal lung expansion, Normal respiratory effort, No respiratory distress, CTA bilaterally Extremities - no calf tenderness bilaterally, no swelling Skin - Warm/Dry Neurological - Alert & oriented x3 Psychological - Appropriate affect Objective Data Active Medications Acetaminophen (Acetaminophen 325 Mg Tablet) 650 mg PO Q6H PRN PRN Reason: Headache/Pain Mild Scale (1-3) Al Hydroxide/Mg Hydroxide (Magnesium Hydrox/Alum Hydrox 30 Ml Oral.Susp) 30 ml PO Q6H PRN PRN Reason: Heartburn/Nausea Donepezil HCl (Donepezil Hcl 10 Mg Tablet) 10 mg PO BEDTIME [facility] Last Admin: 03/23/24 19:28 Dose: 10 mg Documented By: KWAME Enoxaparin Sodium (Enoxaparin Sodium 40 Mg/0.4 Ml Syringe) 40 mg SUBCUT Q24H [facility] Last Admin: 03/23/24 20:46 Dose: 40 mg Documented By: KWAME Fluoxetine HCl (Fluoxetine Hcl 20 Mg Capsule) 20 mg PO DAILY [facility] Last Admin: 03/24/24 08:45 Dose: 20 mg Documented By: ALLAN Folic Acid (Folic Acid 1 Mg Tablet) 1 mg PO DAILY [facility] Last Admin: 03/24/24 08:45 Dose: 1 mg Documented By: ALLAN Magnesium Hydroxide (Milk Of Magnesia 30 Ml Oral.Susp) 30 ml PO DAILY PRN PRN Reason: Constipation Memantine (Memantine Hcl 10 Mg Tablet) 10 mg PO BID [facility] Last Admin: 03/24/24 08:45 Dose: 10 mg Documented By: ALLAN Olanzapine (Olanzapine 2.5 Mg Tablet) 2.5 mg PO TID PRN PRN Reason: agitation Ondansetron HCl (Ondansetron Hcl 4 Mg/2 Ml Vial) 4 mg IVPUSH Q8H PRN PRN Reason: Nausea and Vomiting Simethicone (Simethicone 80 Mg Tab.Chew) 80 mg PO QIDWMHS PRN PRN Reason: Gas Last Admin: 03/20/24 22:30 Dose: 80 mg Documented By: YULIET Sodium Chloride (0.9 % Sodium Chloride Flush 3 Ml Syringe) [address] [facility] Last Admin: 03/24/24 08:46 Dose: Not Given Documented By: ALLAN Non-Admin Reason: No IV access Labs 03/03/24 05:29 03/20/24 06:23 Assessment and Plan (1) Dementia: Status: Acute Plan 79yo M with Alzheimer's dementia + behavioral admitted to telemetry from for AMS, found to have sepsis from multifocal PNA pt on hospitalist service since 03/01/24 pt originally admitted to [facility] 01/02/24 but then sent to for sexual inappropriateness. 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 BCx negative, MRSA swab negative, given vanco + pip- shayne 03/01-03/04, finished ABX course with cefuroxime + azithro 03/04-03/08 for total of 7d Metabolic encephalopathy d/t above, resolved, back to baseline cognitive impairment Abdominal pain--presently without pain, imaging if recur Sore throat- no fevers, associated symptoms, resolved strep A, covid/flu/rsv--negative 5cm epididymal cyst on R scrotum per Urology no intervention or further workup needed Alzheimer's dementia with behavioral disturbance continue fluoxetine, donepezil, memantine, prn olanzapine Knee pain--likely from arthritis, tramadol PRN BP on lower side, assymptomatic and appear to be his baseline VTE ppx LMWH dispo Psychiatry will not take pt back stating that no further inpt psychiatric care is necessary so now he becomes a LTC placement issue. May downgrade to /S need for inpatient: awaiting placement Periodic lab chec particulary BMP, ambulate in peres Quality Stroke Does the patient have a stroke diagnosis?: No VTE Prior VTE?: No VTE Risk Level:: Medical - moderate - high VTE Device Contraindication: Treatment Not Indicated VTE Drug Contraindication: N/A - Med Ordered
[2024-03-24 15:48] VITALS: BP 98/54; PULSE 82; RESP 18; TEMP 36.4; O2SAT 94
[2024-03-24 20:00] VITALS: BP 92/52; PULSE 62; RESP 18; TEMP 36.8; O2SAT 96
[2024-03-24] MEDS: Donepezil HCl 10 MG TABLET PO (20:39)
[2024-03-24] MEDS: Enoxaparin Sodium 40 MG/0.4 ML SYRINGE SUBCUT (20:39)
[2024-03-25 03:53] VITALS: BP 113/64; PULSE 66; RESP 18; TEMP 36.6; O2SAT 94
[2024-03-25 08:00] VITALS: BP 112/53; PULSE 81; RESP 18; TEMP 36.4; O2SAT 96
[2024-03-25 08:43] LABS: Hematocrit 39.4 % (42.0-52.0); Hemoglobin 13.5 g/dl (14.0-18.0); Mean Corpuscular HGB Conc 34.3 g/dl (31.0-36.0); Mean Corpuscular Hemoglobin 32.5 pg (27.0-33.0); Mean Corpuscular Volume 94.7 fL (80.0-98.0); Mean Platelet Volume 10.5 fL (9.4-12.4); Platelet Count 262 X10*3/uL (160-400); Red Blood Count 4.16 X10*6/uL (4.60-5.80); Red Cell Distribution Width 14.5 % (11.0-16.0); White Blood Count 5.3 X10*3/uL (4.8-10.8)
[2024-03-25 08:49] LABS: Anion Gap 12 (12-20); Blood Urea Nitrogen 23 mg/dL (9-16); Calcium 8.7 mg/dL (8.4-10.2); Carbon Dioxide 25 mmol/L (22-29); Chloride 106 mmol/L (96-108); Creatinine Clr Calc Pharmacy 63.4; Estimated Glomerular Filt Rate > 60; Glucose Random 98 mg/dL (60-115); Potassium 3.9 mmol/L (3.3-5.1); Sodium 139 mmol/L (135-145)
[2024-03-25] MEDS: Folic Acid 1 MG TABLET PO (09:54)
[2024-03-25] MEDS: Memantine HCl 10 MG TABLET PO ×2 (09:54→21:01)
[2024-03-25] MEDS: FLUoxetine HCl 20 MG CAPSULE PO (09:54)
[2024-03-25 16:00] VITALS: BP 100/52; PULSE 70; RESP 18; TEMP 36.7; O2SAT 96
[2024-03-25 20:00] VITALS: BP 118/60; PULSE 70; RESP 16; TEMP 36.4; O2SAT 95
[2024-03-25] MEDS: Donepezil HCl 10 MG TABLET PO (21:01)
[2024-03-25] MEDS: Enoxaparin Sodium 40 MG/0.4 ML SYRINGE SUBCUT (21:01)
[2024-03-26 08:00] VITALS: BP 122/70; PULSE 61; RESP 18; TEMP 36.6; O2SAT 94
[2024-03-26] MEDS: Memantine HCl 10 MG TABLET PO ×2 (08:46→22:02)
[2024-03-26] MEDS: Folic Acid 1 MG TABLET PO (08:46)
[2024-03-26] MEDS: FLUoxetine HCl 20 MG CAPSULE PO (08:46)
--- NOTE | 2024-03-26 11:00 | P.PNIM_ITS ---
Subjective Subjective Date of Service: 03/26/24 Interval History: Seen in follow up this am, awaiting placement Interval history: doing well, no new complaint Physical Exam 2 Vital Signs: Vital Signs: Last Vital Signs Temp 97.9 F 03/26/24 08:00 Pulse 61 03/26/24 08:00 Resp 18 03/26/24 08:00 BP 122/70 03/26/24 08:00 Pulse Ox 94 03/26/24 08:00 O2 Del Method Room Air 03/26/24 08:00 BMI result Body Mass Index 19.8 Objective Data Active Medications Acetaminophen (Acetaminophen 325 Mg Tablet) 650 mg PO Q6H PRN PRN Reason: Headache/Pain Mild Scale (1-3) Al Hydroxide/Mg Hydroxide (Magnesium Hydrox/Alum Hydrox 30 Ml Oral.Susp) 30 ml PO Q6H PRN PRN Reason: Heartburn/Nausea Donepezil HCl (Donepezil Hcl 10 Mg Tablet) 10 mg PO BEDTIME [facility] Last Admin: 03/25/24 21:01 Dose: 10 mg Documented By: DIRK Enoxaparin Sodium (Enoxaparin Sodium 40 Mg/0.4 Ml Syringe) 40 mg SUBCUT Q24H [facility] Last Admin: 03/25/24 21:01 Dose: 40 mg Documented By: DIRK Fluoxetine HCl (Fluoxetine Hcl 20 Mg Capsule) 20 mg PO DAILY [facility] Last Admin: 03/26/24 08:46 Dose: 20 mg Documented By: ROBBY Folic Acid (Folic Acid 1 Mg Tablet) 1 mg PO DAILY [facility] Last Admin: 03/26/24 08:46 Dose: 1 mg Documented By: ROBBY Magnesium Hydroxide (Milk Of Magnesia 30 Ml Oral.Susp) 30 ml PO DAILY PRN PRN Reason: Constipation Memantine (Memantine Hcl 10 Mg Tablet) 10 mg PO BID [facility] Last Admin: 03/26/24 08:46 Dose: 10 mg Documented By: ROBBY Olanzapine (Olanzapine 2.5 Mg Tablet) 2.5 mg PO TID PRN PRN Reason: agitation Ondansetron HCl (Ondansetron Hcl 4 Mg/2 Ml Vial) 4 mg IVPUSH Q8H PRN PRN Reason: Nausea and Vomiting Simethicone (Simethicone 80 Mg Tab.Chew) 80 mg PO QIDWMHS PRN PRN Reason: Gas Last Admin: 03/20/24 22:30 Dose: 80 mg Documented By: YULIET Sodium Chloride (0.9 % Sodium Chloride Flush 3 Ml Syringe) 3 ml IVFLUSH QSHIFT [facility] Last Admin: 03/26/24 08:47 Dose: Not Given Documented By: ROBBY Non-Admin Reason: No Access Labs 03/25/24 07:51 03/25/24 07:51 Assessment and Plan (1) Dementia: Status: Acute Plan 79yo M with Alzheimer's dementia + behavioral admitted to telemetry from for AMS, found to have sepsis from multifocal PNA pt on hospitalist service since 03/01/24 pt originally admitted to [facility] 01/02/24 but then sent to for sexual inappropriateness. Now awaiting skilled nursing placement awaiting placement, essentially no new issues, vitals stable Resolved/treated issues during hospitalization: Sepsis d/t PNA, resolved. BCx negative, MRSA swab negative, given vanco + pip- shayne 03/01-03/04, finished ABX course with cefuroxime + azithro 03/04-03/08 for total of 7d Metabolic encephalopathy d/t above, resolved, back to baseline cognitive impairment Abdominal pain--presently without pain, imaging if recur Sore throat- no fevers, associated symptoms, resolved strep A, covid/flu/rsv--negative 5 cm epididymal cyst on R scrotum per Urology no intervention or further workup needed Alzheimer's dementia with behavioral disturbance continue fluoxetine, donepezil, memantine, prn olanzapine Knee pain--likely from arthritis, tramadol PRN BP on lower side, assymptomatic and appear to be his baseline VTE ppx LMWH dispo Psychiatry will not take pt back stating that no further inpt psychiatric care is necessary so now he becomes a LTC placement issue. May downgrade to M/S need for inpatient: awaiting placement Periodic lab chec particulary [facility], ambulate in peres [facility] Stroke Does the patient have a stroke diagnosis?: No VTE Prior VTE?: No VTE Risk Level:: Medical - moderate - high VTE Device Contraindication: Treatment Not Indicated VTE Drug Contraindication: N/A - Med Ordered
[2024-03-26 15:01] VITALS: BP 108/54; PULSE 55; RESP 20; TEMP 36.6; O2SAT 96
[2024-03-26 20:00] VITALS: BP 99/56; PULSE 66; RESP 20; TEMP 36.8; O2SAT 94
[2024-03-26] MEDS: Enoxaparin Sodium 40 MG/0.4 ML SYRINGE SUBCUT (22:01)
[2024-03-26] MEDS: Donepezil HCl 10 MG TABLET PO (22:02)
[2024-03-26 23:58] VITALS: BP 120/66; PULSE 71; RESP 16; TEMP 36.8; O2SAT 93
[2024-03-27 04:00] VITALS: BP 118/63; PULSE 67; RESP 16; TEMP 36.3; O2SAT 98
[2024-03-27 08:00] VITALS: BP 102/62; PULSE 64; RESP 18; TEMP 36.2; O2SAT 95
[2024-03-27] MEDS: Memantine HCl 10 MG TABLET PO ×2 (08:23→20:31)
[2024-03-27] MEDS: FLUoxetine HCl 20 MG CAPSULE PO (08:24)
[2024-03-27] MEDS: Folic Acid 1 MG TABLET PO (08:24)
[2024-03-27] MEDS: Acetaminophen 325 MG TABLET 650 MG PO (08:24)
--- NOTE | 2024-03-27 10:05 | HO.PM.IMPN ---
Subjective Subjective Date of Service: 03/27/24 Interval History: Seen in follow up this am, awaiting placement Interval history: doing well, no new complaint Physical Exam Vital Signs: Vital Signs: Last Vital Signs Temp 97.1 F 03/27/24 08:00 Pulse 64 03/27/24 08:00 Resp 18 03/27/24 08:00 BP 102/62 03/27/24 08:00 Pulse Ox 95 03/27/24 08:00 O2 Del Method Room Air 03/27/24 08:00 BMI result Body Mass Index 19.8 General: Alert oriented to self, no distress Resp: CTA bilateral CVS: S1,S2,RRR GI: +BS, NT, no distention Skin: No rash Neuro: motor grossly intact Psych: appropriate affect Objective Data Active Medications Acetaminophen (Acetaminophen 325 Mg Tablet) 650 mg PO Q6H PRN PRN Reason: Headache/Pain Mild Scale (1-3) Last Admin: 03/27/24 08:24 Dose: 650 mg Documented By: JASWINDER Al Hydroxide/Mg Hydroxide (Magnesium Hydrox/Alum Hydrox 30 Ml Oral.Susp) 30 ml PO Q6H PRN PRN Reason: Heartburn/Nausea Donepezil HCl (Donepezil Hcl 10 Mg Tablet) 10 mg PO BEDTIME [facility] Last Admin: 03/26/24 22:02 Dose: 10 mg Documented By: KAI Enoxaparin Sodium (Enoxaparin Sodium 40 Mg/0.4 Ml Syringe) 40 mg SUBCUT Q24H [facility] Last Admin: 03/26/24 22:01 Dose: 40 mg Documented By: KAI Fluoxetine HCl (Fluoxetine Hcl 20 Mg Capsule) 20 mg PO DAILY [facility] Last Admin: 03/27/24 08:24 Dose: 20 mg Documented By: JASWINDER Folic Acid (Folic Acid 1 Mg Tablet) 1 mg PO DAILY [facility] Last Admin: 03/27/24 08:24 Dose: 1 mg Documented By: JASWINDER Magnesium Hydroxide (Milk Of Magnesia 30 Ml Oral.Susp) 30 ml PO DAILY PRN PRN Reason: Constipation Memantine (Memantine Hcl 10 Mg Tablet) 10 mg PO BID [facility] Last Admin: 03/27/24 08:23 Dose: 10 mg Documented By: JASWINDER Olanzapine (Olanzapine 2.5 Mg Tablet) 2.5 mg PO TID PRN PRN Reason: agitation Ondansetron HCl (Ondansetron Hcl 4 Mg/2 Ml Vial) 4 mg IVPUSH Q8H PRN PRN Reason: Nausea and Vomiting Simethicone (Simethicone 80 Mg Tab.Chew) 80 mg PO QIDWMHS PRN PRN Reason: Gas Last Admin: 03/20/24 22:30 Dose: 80 mg Documented By: YULIET Sodium Chloride (0.9 % Sodium Chloride Flush 3 Ml Syringe) 3 ml IVFLUSH QSHIFT [facility] Last Admin: 03/27/24 08:24 Dose: Not Given Documented By: JASWINDER Non-Admin Reason: No Access Labs 03/25/24 07:51 03/25/24 07:51 Assessment and Plan (1) Dementia: Status: Acute Plan 79yo M with Alzheimer's dementia + behavioral admitted to telemetry from for AMS, found to have sepsis from multifocal PNA pt on hospitalist service since 03/01/24 pt originally admitted to [facility] 01/02/24 but then sent to for sexual inappropriateness. 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 BCx negative, MRSA swab negative, given vanco + pip-shayne 03/01-03/04, finished ABX course with cefuroxime + azithro 03/04-03/08 for total of 7d Metabolic encephalopathy d/t above, resolved, back to baseline cognitive impairment Abdominal pain-- resolved long ago Sore throat- no fevers, associated symptoms, resolved strep A, covid/flu/rsv--negative 5 cm epididymal cyst on R scrotum per Urology no intervention or further workup needed Alzheimer's dementia with behavioral disturbance continue fluoxetine, donepezil, memantine, prn olanzapine Knee pain--likely from arthritis, tramadol PRN BP on lower side, assymptomatic and appear to be his baseline VTE ppx LMWH dispo Psychiatry will not take pt back stating that no further inpt psychiatric care is necessary so now he becomes a LTC placement issue. May downgrade to M/S need for inpatient: awaiting placement Periodic lab chec particulary [facility], ambulate in [facility] Stroke Does the patient have a stroke diagnosis?: No VTE Prior VTE?: No VTE Risk Level:: Medical - moderate - high VTE Device Contraindication: Treatment Not Indicated VTE Drug Contraindication: N/A - Med Ordered
[2024-03-27 15:37] VITALS: BP 117/56; PULSE 76; RESP 16; TEMP 36.3; O2SAT 95
[2024-03-27 20:00] VITALS: BP 93/44; PULSE 96; RESP 16; TEMP 36.6; O2SAT 96
[2024-03-27] MEDS: Donepezil HCl 10 MG TABLET PO (20:31)
[2024-03-27] MEDS: Enoxaparin Sodium 40 MG/0.4 ML SYRINGE SUBCUT (20:31)
[2024-03-28 04:00] VITALS: BP 119/56; PULSE 64; RESP 16; TEMP 36.6; O2SAT 94
[2024-03-28 08:00] VITALS: BP 113/62; PULSE 70; RESP 18; TEMP 36.7; O2SAT 94
[2024-03-28] MEDS: Folic Acid 1 MG TABLET PO (08:28)
[2024-03-28] MEDS: FLUoxetine HCl 20 MG CAPSULE PO (08:28)
[2024-03-28] MEDS: Memantine HCl 10 MG TABLET PO ×2 (08:28→20:42)
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
--- NOTE | 2024-03-28 11:00 | MHC.CM.PN ---
No SNF bed offers after extensive snf bed search; S.O./POA/HCP/Gertude is pursuing placement in ALFs. CM will follow.
[2024-03-28 16:00] VITALS: BP 104/57; PULSE 92; RESP 18; TEMP 37.2; O2SAT 96
[2024-03-28 20:00] VITALS: BP 106/61; PULSE 68; RESP 16; TEMP 36.9; O2SAT 97
[2024-03-28] MEDS: Donepezil HCl 10 MG TABLET PO (20:42)
[2024-03-28] MEDS: Enoxaparin Sodium 40 MG/0.4 ML SYRINGE SUBCUT (20:43)
[2024-03-29 04:00] VITALS: BP 119/61; PULSE 59; RESP 18; TEMP 36.8; O2SAT 96
[2024-03-29 07:22] VITALS: BP 115/60; PULSE 54; RESP 17; TEMP 36.6; O2SAT 92
[2024-03-29] MEDS: Memantine HCl 10 MG TABLET PO ×2 (09:25→20:39)
[2024-03-29] MEDS: Folic Acid 1 MG TABLET PO (09:25)
[2024-03-29] MEDS: FLUoxetine HCl 20 MG CAPSULE PO (09:25)
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
[2024-03-29 15:21] VITALS: BP 98/60; PULSE 88; RESP 20; TEMP 36.9; O2SAT 96
[2024-03-29 20:00] VITALS: BP 104/58; PULSE 71; RESP 16; TEMP 36.9; O2SAT 94
[2024-03-29] MEDS: Enoxaparin Sodium 40 MG/0.4 ML SYRINGE SUBCUT (20:39)
[2024-03-29] MEDS: Donepezil HCl 10 MG TABLET PO (20:39)
[2024-03-30 03:57] VITALS: BP 114/69; PULSE 69; RESP 20; TEMP 36.7; O2SAT 93
[2024-03-30 07:32] VITALS: BP 118/74; PULSE 74; RESP 20; TEMP 36.4; O2SAT 96
[2024-03-30] MEDS: Folic Acid 1 MG TABLET PO (09:05)
[2024-03-30] MEDS: Memantine HCl 10 MG TABLET PO ×2 (09:05→20:02)
[2024-03-30] MEDS: FLUoxetine HCl 20 MG CAPSULE PO (09:05)
--- NOTE | 2024-03-30 10:13 | MHC.CLN ---
F/U PO INTAKE EXCELLENT 75-100% CONSISTENTLY DIET RX: REGULAR-APPROPRIATE PT RECEIVING ENSURE BID TO INCREASE KCALS PROVIDES 700KCALS, 40G PROTEIN MONITOR PO INTAKE AND ENCOURAGE SUPPLEMENT RD TO FOLLOW WEEKLY OBTAIN CURRENT WEIGHT PT AWAITING SNF PLACEMENT
--- NOTE | 2024-03-30 10:22 | MHC.CM.PN ---
CM and S.O./HCP/POA/Yuliana agreed that Yuliana would update CM Q Thursday with updates on [facility] bed search and progress on selling Patient's home;CM awaits that call today and will continue to follow.
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
[2024-03-30 15:29] VITALS: BP 107/57; PULSE 60; RESP 20; TEMP 36.4; O2SAT 95
[2024-03-30 19:50] VITALS: BP 118/70; PULSE 61; RESP 20; TEMP 37.1; O2SAT 93
[2024-03-30] MEDS: Enoxaparin Sodium 40 MG/0.4 ML SYRINGE SUBCUT (20:03)
[2024-03-30] MEDS: Donepezil HCl 10 MG TABLET PO (20:03)
[2024-03-31 04:00] VITALS: BP 107/67; PULSE 85; RESP 16; TEMP 36.9; O2SAT 93
[2024-03-31 08:00] VITALS: BP 118/62; PULSE 65; RESP 14; TEMP 36.6; O2SAT 93
[2024-03-31] MEDS: FLUoxetine HCl 20 MG CAPSULE PO (08:40)
[2024-03-31] MEDS: Folic Acid 1 MG TABLET PO (08:40)
[2024-03-31] MEDS: Memantine HCl 10 MG TABLET PO ×2 (08:40→20:59)
--- NOTE | 2024-03-31 13:29 | MHC.CM.PN ---
DARIUSZ spoke with S.O./HCP/POA/Yuliana @ [phone]. Per Yuliana, she met with [facility] Admissions/Olvin and Patient may be able to be admitted to [facility] on 04/29/2024 under 2 months of Respite provided that Yuliana can prove that Patient's house is under multiple listings. Olvin suggested a new [employer], who Yuliana spoke to this morning; new Agent is coming out to Patient's home to set a kaminski, in writing that Yuliana can provide [facility]. Yuliana did say that the house has , some hoarding issues. Prior to going to [facility], Yuliana has to be able to demonstrate that Patient has the funds necessary to cover at least one year of cost at [facility]. DARIUSZ will follow.
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
[2024-03-31 16:00] VITALS: BP 97/56; PULSE 16; RESP 16; TEMP 37.2; O2SAT 94
[2024-03-31 19:37] VITALS: BP 102/64; PULSE 67; RESP 18; TEMP 36.4; O2SAT 91
[2024-03-31] MEDS: Enoxaparin Sodium 40 MG/0.4 ML SYRINGE SUBCUT (20:59)
[2024-03-31] MEDS: Donepezil HCl 10 MG TABLET PO (20:59)
[2024-03-31] MEDS: 0.9 % Sodium Chloride Flush 3 ML SYRINGE IVFLUSH (21:00)
[2024-04-01 03:39] VITALS: BP 112/55; PULSE 86; RESP 18; TEMP 36.6; O2SAT 93
[2024-04-01 07:27] VITALS: BP 108/62; PULSE 71; RESP 20; TEMP 36.2; O2SAT 94
[2024-04-01] MEDS: Folic Acid 1 MG TABLET PO (08:41)
[2024-04-01] MEDS: FLUoxetine HCl 20 MG CAPSULE PO (08:41)
[2024-04-01] MEDS: Memantine HCl 10 MG TABLET PO ×2 (08:41→20:59)
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
[2024-04-01 16:00] VITALS: BP 102/60; PULSE 80; RESP 12; TEMP 36.6; O2SAT 94
[2024-04-01 20:00] VITALS: BP 109/63; PULSE 74; RESP 16; TEMP 36.2; O2SAT 96
[2024-04-01] MEDS: Donepezil HCl 10 MG TABLET PO (20:59)
[2024-04-01] MEDS: Enoxaparin Sodium 40 MG/0.4 ML SYRINGE SUBCUT (20:59)
[2024-04-02 04:00] VITALS: BP 128/52; PULSE 72; RESP 16; TEMP 36.1; O2SAT 98
[2024-04-02 07:14] VITALS: BP 117/53; PULSE 86; RESP 18; TEMP 37.2; O2SAT 94
[2024-04-02] MEDS: FLUoxetine HCl 20 MG CAPSULE PO (09:31)
[2024-04-02] MEDS: Folic Acid 1 MG TABLET PO (09:31)
[2024-04-02] MEDS: Memantine HCl 10 MG TABLET PO ×2 (09:31→21:35)
--- NOTE | 2024-04-02 11:41 | P.PNIM_ITS ---
Subjective Subjective Date of Service: 04/02/24 Interval History: seen and examined no new issues reported Physical Exam 2 Vital Signs: Vital Signs: Last Vital Signs Temp 98.9 F 04/02/24 07:14 Pulse 86 04/02/24 07:14 Resp 18 04/02/24 07:14 BP 117/53 L 04/02/24 07:14 Pulse Ox 94 04/02/24 07:14 O2 Del Method Room Air 04/02/24 07:14 BMI result Body Mass Index 19.8 Const: Other: Constitutional : Awake, interactive, not in distress Neck : Normal inspection, Supple Cardiovascular : RRR, no JVP, no lower extremity edema Respiratory : bilateral air entry, basal fine crackles more on right side, no wheezes or rhonchi Gastrointestinal: soft, lax, Normal bowel sounds, Non tender Skin : Warm, Dry MSK: no swelling, redness or tenderness of the knee Neurological : Alert & oriented x1, No focal deficit Objective Data Active Medications Acetaminophen (Acetaminophen 325 Mg Tablet) 650 mg PO Q6H PRN PRN Reason: Headache/Pain Mild Scale (1-3) Last Admin: 03/27/24 08:24 Dose: 650 mg Documented By: JASWINDER Al Hydroxide/Mg Hydroxide (Magnesium Hydrox/Alum Hydrox 30 Ml Oral.Susp) 30 ml PO Q6H PRN PRN Reason: Heartburn/Nausea Donepezil HCl (Donepezil Hcl 10 Mg Tablet) 10 mg PO BEDTIME [facility] Last Admin: 04/01/24 20:59 Dose: 10 mg Documented By: NATHAN Enoxaparin Sodium (Enoxaparin Sodium 40 Mg/0.4 Ml Syringe) 40 mg SUBCUT Q24H [facility] Last Admin: 04/01/24 20:59 Dose: 40 mg Documented By: NATHAN Fluoxetine HCl (Fluoxetine Hcl 20 Mg Capsule) 20 mg PO DAILY [facility] Last Admin: 04/02/24 09:31 Dose: 20 mg Documented By: ALLAN Folic Acid (Folic Acid 1 Mg Tablet) 1 mg PO DAILY [facility] Last Admin: 04/02/24 09:31 Dose: 1 mg Documented By: ALLAN Magnesium Hydroxide (Milk Of Magnesia 30 Ml Oral.Susp) 30 ml PO DAILY PRN PRN Reason: Constipation Memantine (Memantine Hcl 10 Mg Tablet) 10 mg PO BID [facility] Last Admin: 04/02/24 09:31 Dose: 10 mg Documented By: ALLAN Olanzapine (Olanzapine 2.5 Mg Tablet) 2.5 mg PO TID PRN PRN Reason: agitation Ondansetron HCl (Ondansetron Hcl 4 Mg/2 Ml Vial) 4 mg IVPUSH Q8H PRN PRN Reason: Nausea and Vomiting Simethicone (Simethicone 80 Mg Tab.Chew) 80 mg PO QIDWMHS PRN PRN Reason: Gas Last Admin: 03/20/24 22:30 Dose: 80 mg Documented By: YULIET Sodium Chloride (0.9 % Sodium Chloride Flush 3 Ml Syringe) 3 ml IVFLUSH QSHIFT [facility] Last Admin: 04/02/24 09:19 Dose: Not Given Documented By: ALLAN Non-Admin Reason: No IV access Labs 03/25/24 07:51 03/25/24 07:51 Assessment and Plan (1) Pneumonia: Status: Acute (2) Dementia: Status: Acute (3) Acute metabolic encephalopathy: Status: Acute Plan 79yo M with Alzheimer's dementia + behavioral admitted to telemetry from for AMS, found to have sepsis from multifocal PNA pt on hospitalist service since 03/01/24 pt originally admitted to [facility] 01/02/24 but then sent to for sexual inappropriateness. 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 BCx negative, MRSA swab negative, given vanco + pip- shayne 03/01-03/04, finished ABX course with cefuroxime + azithro 03/04-03/08 for total of 7d Metabolic encephalopathy d/t above, resolved, back to baseline cognitive impairment. Abdominal pain-- resolved Sore throat- resolved, strep A, covid/flu/rsv--negative 5 cm epididymal cyst on R scrotum per Urology no intervention or further workup needed Alzheimer's dementia with behavioral disturbance continue fluoxetine, donepezil, memantine, prn olanzapine Knee pain--likely osteoarthritis resolved, tramadol PRN VTE ppx LMWH dispo Psychiatry will not take pt back stating that no further inpt psychiatric care is necessary so now he becomes a LTC placement issue. need for inpatient: awaiting placement CBC/ BMP, last checked 03/25 were stable ambulate in [facility] Stroke Does the patient have a stroke diagnosis?: No VTE Prior VTE?: No VTE Risk Level:: Medical - moderate - high VTE Device Contraindication: Treatment Not Indicated VTE Drug Contraindication: N/A - Med Ordered
[2024-04-02 15:17] VITALS: BP 110/64; PULSE 80; RESP 18; TEMP 37; O2SAT 96
[2024-04-02 19:53] VITALS: BP 112/58; PULSE 88; RESP 16; TEMP 36.2; O2SAT 94
[2024-04-02] MEDS: Donepezil HCl 10 MG TABLET PO (21:35)
[2024-04-02] MEDS: Enoxaparin Sodium 40 MG/0.4 ML SYRINGE SUBCUT (21:35)
[2024-04-03 04:00] VITALS: BP 112/67; PULSE 59; RESP 16; TEMP 36.2; O2SAT 96
[2024-04-03 07:30] VITALS: BP 110/56; PULSE 65; RESP 18; TEMP 36.2; O2SAT 95
[2024-04-03] MEDS: Folic Acid 1 MG TABLET PO (07:43)
[2024-04-03] MEDS: Memantine HCl 10 MG TABLET PO ×2 (07:43→19:50)
[2024-04-03] MEDS: FLUoxetine HCl 20 MG CAPSULE PO (07:43)
--- NOTE | 2024-04-03 09:46 | P.PNIM_ITS ---
Subjective Subjective Date of Service: 04/03/24 Interval History: seen and examined no new issues reported Physical Exam 2 Vital Signs: Vital Signs: Last Vital Signs Temp 97.1 F 04/03/24 07:30 Pulse 65 04/03/24 07:30 Resp 18 04/03/24 07:30 BP 110/56 L 04/03/24 07:30 Pulse Ox 95 04/03/24 07:30 O2 Del Method Room Air 04/03/24 07:30 BMI result Body Mass Index 19.8 Const: Other: Constitutional : Awake, interactive, not in distress Neck : Normal inspection, Supple Cardiovascular : RRR, no JVP, no lower extremity edema Respiratory : bilateral air entry, basal fine crackles more on right side, no wheezes or rhonchi Gastrointestinal: soft, lax, Normal bowel sounds, Non tender Skin : Warm, Dry MSK: no swelling, redness or tenderness of the knee Neurological : Alert & oriented x1, No focal deficit Objective Data Active Medications Acetaminophen (Acetaminophen 325 Mg Tablet) 650 mg PO Q6H PRN PRN Reason: Headache/Pain Mild Scale (1-3) Last Admin: 03/27/24 08:24 Dose: 650 mg Documented By: JASWINDER Al Hydroxide/Mg Hydroxide (Magnesium Hydrox/Alum Hydrox 30 Ml Oral.Susp) 30 ml PO Q6H PRN PRN Reason: Heartburn/Nausea Donepezil HCl (Donepezil Hcl 10 Mg Tablet) 10 mg PO BEDTIME [facility] Last Admin: 04/02/24 21:35 Dose: 10 mg Documented By: NATHAN Enoxaparin Sodium (Enoxaparin Sodium 40 Mg/0.4 Ml Syringe) 40 mg SUBCUT Q24H [facility] Last Admin: 04/02/24 21:35 Dose: 40 mg Documented By: NATHAN Fluoxetine HCl (Fluoxetine Hcl 20 Mg Capsule) 20 mg PO DAILY [facility] Last Admin: 04/03/24 07:43 Dose: 20 mg Documented By: ZOHREH Folic Acid (Folic Acid 1 Mg Tablet) 1 mg PO DAILY [facility] Last Admin: 04/03/24 07:43 Dose: 1 mg Documented By: ZOHREH Magnesium Hydroxide (Milk Of Magnesia 30 Ml Oral.Susp) 30 ml PO DAILY PRN PRN Reason: Constipation Memantine (Memantine Hcl 10 Mg Tablet) 10 mg PO BID [facility] Last Admin: 04/03/24 07:43 Dose: 10 mg Documented By: ZOHREH Olanzapine (Olanzapine 2.5 Mg Tablet) 2.5 mg PO TID PRN PRN Reason: agitation Ondansetron HCl (Ondansetron Hcl 4 Mg/2 Ml Vial) 4 mg IVPUSH Q8H PRN PRN Reason: Nausea and Vomiting Simethicone (Simethicone 80 Mg Tab.Chew) 80 mg PO QIDWMHS PRN PRN Reason: Gas Last Admin: 03/20/24 22:30 Dose: 80 mg Documented By: YULIET Sodium Chloride (0.9 % Sodium Chloride Flush 3 Ml Syringe) 3 ml IVFLUSH QSHIFT [facility] Last Admin: 04/03/24 07:44 Dose: Not Given Documented By: ZOHREH Non-Admin Reason: No Access Labs 03/25/24 07:51 03/25/24 07:51 Assessment and Plan (1) Pneumonia: Status: Acute (2) Dementia: Status: Acute (3) Acute metabolic encephalopathy: Status: Acute Plan 79yo M with Alzheimer's dementia + behavioral admitted to telemetry from for AMS, found to have sepsis from multifocal PNA pt on hospitalist service since 03/01/24 pt originally admitted to [facility] 01/02/24 but then sent to for sexual inappropriateness. 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 BCx negative, MRSA swab negative, given vanco + pip- shayne 03/01-03/04, finished ABX course with cefuroxime + azithro 03/04-03/08 for total of 7d Metabolic encephalopathy d/t above, resolved, back to baseline cognitive impairment. Abdominal pain-- resolved Sore throat- resolved, strep A, covid/flu/rsv--negative 5 cm epididymal cyst on R scrotum per Urology no intervention or further workup needed Alzheimer's dementia with behavioral disturbance continue fluoxetine, donepezil, memantine, prn olanzapine Knee pain--likely osteoarthritis resolved, tramadol PRN VTE ppx LMWH dispo Psychiatry will not take pt back stating that no further inpt psychiatric care is necessary so now he becomes a LTC placement issue. need for inpatient: awaiting placement CBC/ BMP, last checked 03/25 were stable ambulate in [facility] Stroke Does the patient have a stroke diagnosis?: No VTE Prior VTE?: No VTE Risk Level:: Medical - moderate - high VTE Device Contraindication: Treatment Not Indicated VTE Drug Contraindication: N/A - Med Ordered
[2024-04-03 15:46] VITALS: BP 102/56; PULSE 95; RESP 18; TEMP 37.1; O2SAT 96
[2024-04-03] MEDS: Donepezil HCl 10 MG TABLET PO (19:50)
[2024-04-03] MEDS: Enoxaparin Sodium 40 MG/0.4 ML SYRINGE SUBCUT (19:52)
[2024-04-03 19:55] VITALS: BP 100/53; PULSE 72; RESP 20; TEMP 36.4; O2SAT 95
[2024-04-03 23:46] VITALS: BP 116/75; PULSE 65; RESP 20; TEMP 36.6; O2SAT 97
[2024-04-04 07:50] VITALS: BP 107/64; PULSE 58; RESP 16; TEMP 36.7; O2SAT 94
[2024-04-04] MEDS: Folic Acid 1 MG TABLET PO (09:28)
[2024-04-04] MEDS: FLUoxetine HCl 20 MG CAPSULE PO (09:28)
[2024-04-04] MEDS: Memantine HCl 10 MG TABLET PO ×2 (09:28→20:08)
--- NOTE | 2024-04-04 10:46 | HO.PM.IMPN ---
Subjective Subjective Date of Service: 04/04/24 Interval History: seen and examined has no new problems Physical Exam Vital Signs: Vital Signs: Last Vital Signs Temp 98.1 F 04/04/24 07:50 Pulse 58 04/04/24 07:50 Resp 16 04/04/24 07:50 BP 107/64 04/04/24 07:50 Pulse Ox 94 04/04/24 07:50 O2 Del Method Room Air 04/04/24 07:50 BMI result Body Mass Index 19.8 Const: Other: Constitutional : Awake, interactive, not in distress Neck : Normal inspection, Supple Cardiovascular : RRR, no JVP, no lower extremity edema Respiratory : bilateral air entry, basal fine crackles more on right side, no wheezes or rhonchi Gastrointestinal: soft, lax, Normal bowel sounds, Non tender Skin : Warm, Dry MSK: no swelling, redness or tenderness of the knee Neurological : Alert & oriented x1, No focal deficit Objective Data Active Medications Acetaminophen (Acetaminophen 325 Mg Tablet) 650 mg PO Q6H PRN PRN Reason: Headache/Pain Mild Scale (1-3) Last Admin: 03/27/24 08:24 Dose: 650 mg Documented By: JASWINDER Al Hydroxide/Mg Hydroxide (Magnesium Hydrox/Alum Hydrox 30 Ml Oral.Susp) 30 ml PO Q6H PRN PRN Reason: Heartburn/Nausea Donepezil HCl (Donepezil Hcl 10 Mg Tablet) 10 mg PO BEDTIME [facility] Last Admin: 04/03/24 19:50 Dose: 10 mg Documented By: ZOHREH Enoxaparin Sodium (Enoxaparin Sodium 40 Mg/0.4 Ml Syringe) 40 mg SUBCUT Q24H [facility] Last Admin: 04/03/24 19:52 Dose: 40 mg Documented By: ZOHREH Fluoxetine HCl (Fluoxetine Hcl 20 Mg Capsule) 20 mg PO DAILY [facility] Last Admin: 04/04/24 09:28 Dose: 20 mg Documented By: ALLAN Folic Acid (Folic Acid 1 Mg Tablet) 1 mg PO DAILY [facility] Last Admin: 04/04/24 09:28 Dose: 1 mg Documented By: ALLAN Magnesium Hydroxide (Milk Of Magnesia 30 Ml Oral.Susp) 30 ml PO DAILY PRN PRN Reason: Constipation Memantine (Memantine Hcl 10 Mg Tablet) 10 mg PO BID [facility] Last Admin: 04/04/24 09:28 Dose: 10 mg Documented By: ALLAN Olanzapine (Olanzapine 2.5 Mg Tablet) 2.5 mg PO TID PRN PRN Reason: agitation Ondansetron HCl (Ondansetron Hcl 4 Mg/2 Ml Vial) 4 mg IVPUSH Q8H PRN PRN Reason: Nausea and Vomiting Simethicone (Simethicone 80 Mg Tab.Chew) 80 mg PO QIDWMHS PRN PRN Reason: Gas Last Admin: 03/20/24 22:30 Dose: 80 mg Documented By: YULIET Sodium Chloride (0.9 % Sodium Chloride Flush 3 Ml Syringe) 3 ml IVFLUSH QSHIFT [facility] Last Admin: 04/04/24 09:28 Dose: Not Given Documented By: ALLAN Non-Admin Reason: No IV access Labs 03/25/24 07:51 03/25/24 07:51 Assessment and Plan (1) Pneumonia: Status: Acute (2) Dementia: Status: Acute (3) Acute metabolic encephalopathy: Status: Acute Plan 79yo M with Alzheimer's dementia + behavioral admitted to telemetry from for AMS, found to have sepsis from multifocal PNA pt on hospitalist service since 03/01/24 pt originally admitted to [facility] 01/02/24 but then sent to for sexual inappropriateness. 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 BCx negative, MRSA swab negative, given vanco + pip-shayne 03/01-03/04, finished ABX course with cefuroxime + azithro 03/04-03/08 for total of 7d Metabolic encephalopathy d/t above, resolved, back to baseline cognitive impairment. Abdominal pain-- resolved Sore throat- resolved, strep A, covid/flu/rsv--negative 5 cm epididymal cyst on R scrotum per Urology no intervention or further workup needed Alzheimer's dementia without behavioral disturbance continue fluoxetine, donepezil, memantine, prn olanzapine Knee pain--likely osteoarthritis resolved, tramadol PRN VTE ppx LMWH dispo Psychiatry will not take pt back stating that no further inpt psychiatric care is necessary so now he becomes a LTC placement issue. need for inpatient: awaiting placement CBC/ BMP, last checked 7/5 were stable ambulate in [facility] Stroke Does the patient have a stroke diagnosis?: No VTE Prior VTE?: No VTE Risk Level:: Medical - moderate - high VTE Device Contraindication: Treatment Not Indicated VTE Drug Contraindication: N/A - Med Ordered
--- NOTE | 2024-04-04 10:46 | MHC.CM.PN ---
Ongoing dc planning/goal is [facility], once Patient's home is sold, which will provide the finance needed for the [facility]. CM will follow.
[2024-04-04 15:41] VITALS: BP 95/68; PULSE 57; RESP 20; TEMP 36.4; O2SAT 95
[2024-04-04 19:53] VITALS: BP 121/65; PULSE 76; RESP 18; TEMP 36.5; O2SAT 96
[2024-04-04] MEDS: Enoxaparin Sodium 40 MG/0.4 ML SYRINGE SUBCUT (20:06)
[2024-04-04] MEDS: Donepezil HCl 10 MG TABLET PO (20:09)
[2024-04-05 04:00] VITALS: BP 119/62; PULSE 69; RESP 18; TEMP 36.2; O2SAT 95
[2024-04-05 07:22] VITALS: BP 106/68; PULSE 53; RESP 18; TEMP 36.1; O2SAT 94
[2024-04-05] MEDS: Memantine HCl 10 MG TABLET PO ×2 (08:06→21:28)
[2024-04-05] MEDS: FLUoxetine HCl 20 MG CAPSULE PO (08:06)
[2024-04-05] MEDS: Folic Acid 1 MG TABLET PO (08:06)
--- NOTE | 2024-04-05 11:39 | HO.PM.IMPN ---
Subjective Subjective Date of Service: 04/05/24 Interval History: seen and examined has no new problems Physical Exam Vital Signs: Vital Signs: Last Vital Signs Temp 97.0 F 04/05/24 07:22 Pulse 53 04/05/24 07:22 Resp 18 04/05/24 07:22 BP 106/68 04/05/24 07:22 Pulse Ox 94 04/05/24 07:22 O2 Del Method Room Air 04/05/24 07:22 BMI result Body Mass Index 19.8 Const: Other: Constitutional : Awake, interactive, not in distress Neck : Normal inspection, Supple Cardiovascular : RRR, no JVP, no lower extremity edema Respiratory : bilateral air entry, basal fine crackles more on right side, no wheezes or rhonchi Gastrointestinal: soft, lax, Normal bowel sounds, Non tender Skin : Warm, Dry MSK: no swelling, redness or tenderness of the knee Neurological : Alert & oriented x1, No focal deficit Objective Data Active Medications Acetaminophen (Acetaminophen 325 Mg Tablet) 650 mg PO Q6H PRN PRN Reason: Headache/Pain Mild Scale (1-3) Last Admin: 03/27/24 08:24 Dose: 650 mg Documented By: JASWINDER Al Hydroxide/Mg Hydroxide (Magnesium Hydrox/Alum Hydrox 30 Ml Oral.Susp) 30 ml PO Q6H PRN PRN Reason: Heartburn/Nausea Donepezil HCl (Donepezil Hcl 10 Mg Tablet) 10 mg PO BEDTIME [facility] Last Admin: 04/04/24 20:09 Dose: 10 mg Documented By: JASWINDER Enoxaparin Sodium (Enoxaparin Sodium 40 Mg/0.4 Ml Syringe) 40 mg SUBCUT Q24H [facility] Last Admin: 04/04/24 20:06 Dose: 40 mg Documented By: JASWINDER Fluoxetine HCl (Fluoxetine Hcl 20 Mg Capsule) 20 mg PO DAILY [facility] Last Admin: 04/05/24 08:06 Dose: 20 mg Documented By: MEAGAN Folic Acid (Folic Acid 1 Mg Tablet) 1 mg PO DAILY [facility] Last Admin: 04/05/24 08:06 Dose: 1 mg Documented By: MEAGAN Magnesium Hydroxide (Milk Of Magnesia 30 Ml Oral.Susp) 30 ml PO DAILY PRN PRN Reason: Constipation Memantine (Memantine Hcl 10 Mg Tablet) 10 mg PO BID [facility] Last Admin: 04/05/24 08:06 Dose: 10 mg Documented By: MEAGAN Olanzapine (Olanzapine 2.5 Mg Tablet) 2.5 mg PO TID PRN PRN Reason: agitation Ondansetron HCl (Ondansetron Hcl 4 Mg/2 Ml Vial) 4 mg IVPUSH Q8H PRN PRN Reason: Nausea and Vomiting Simethicone (Simethicone 80 Mg Tab.Chew) 80 mg PO QIDWMHS PRN PRN Reason: Gas Last Admin: 03/20/24 22:30 Dose: 80 mg Documented By: YULIET Sodium Chloride (0.9 % Sodium Chloride Flush 3 Ml Syringe) 3 ml IVFLUSH QSHIFT [facility] Last Admin: 04/05/24 08:05 Dose: Not Given Documented By: MEAGAN Non-Admin Reason: No Access Labs 03/25/24 07:51 03/25/24 07:51 Assessment and Plan (1) Pneumonia: Status: Acute (2) Dementia: Status: Acute (3) Acute metabolic encephalopathy: Status: Acute Plan 79yo M with Alzheimer's dementia + behavioral admitted to telemetry from for AMS, found to have sepsis from multifocal PNA pt on hospitalist service since 03/01/24 pt originally admitted to [facility] 01/02/24 but then sent to for sexual inappropriateness. 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 BCx negative, MRSA swab negative, given vanco + pip-shayne 03/01-03/04, finished ABX course with cefuroxime + azithro 03/04-03/08 for total of 7d Metabolic encephalopathy d/t above, resolved, back to baseline cognitive impairment. Abdominal pain-- resolved Sore throat- resolved, strep A, covid/flu/rsv--negative 5 cm epididymal cyst on R scrotum per Urology no intervention or further workup needed Alzheimer's dementia without behavioral disturbance continue fluoxetine, donepezil, memantine, prn olanzapine Knee pain--likely osteoarthritis resolved, tramadol PRN VTE ppx LMWH dispo Psychiatry will not take pt back stating that no further inpt psychiatric care is necessary so now he becomes a LTC placement issue. need for inpatient: awaiting placement CBC/ BMP, last checked 03/25 were stable ambulate in [facility] Stroke Does the patient have a stroke diagnosis?: No VTE Prior VTE?: No VTE Risk Level:: Medical - moderate - high VTE Device Contraindication: Treatment Not Indicated VTE Drug Contraindication: N/A - Med Ordered
[2024-04-05 15:36] VITALS: BP 121/67; PULSE 68; RESP 12; TEMP 37.2; O2SAT 95
[2024-04-05 19:48] VITALS: BP 112/56; PULSE 68; RESP 17; TEMP 36.2; O2SAT 96
[2024-04-05] MEDS: Donepezil HCl 10 MG TABLET PO (21:28)
[2024-04-05] MEDS: Enoxaparin Sodium 40 MG/0.4 ML SYRINGE SUBCUT (21:28)
[2024-04-06 03:49] VITALS: BP 126/68; PULSE 54; RESP 17; TEMP 36.3; O2SAT 96
[2024-04-06 06:43] LABS: Hematocrit 40.6 % (42.0-52.0); Hemoglobin 14.2 g/dl (14.0-18.0); Mean Corpuscular Hemoglobin 32.9 pg (27.0-33.0); Mean Platelet Volume 10.6 fL (9.4-12.4); Platelet Count 230 X10*3/uL (160-400); Red Blood Count 4.32 X10*6/uL (4.60-5.80); Red Cell Distribution Width 13.8 % (11.0-16.0); White Blood Count 6.4 X10*3/uL (4.8-10.8)
[2024-04-06 06:56] LABS: Anion Gap 13 (12-20); Blood Urea Nitrogen 19 mg/dL (9-16); Calcium 8.7 mg/dL (8.4-10.2); Carbon Dioxide 24 mmol/L (22-29); Chloride 106 mmol/L (96-108); Creatinine Clr Calc Pharmacy 68.2; Estimated Glomerular Filt Rate > 60; Glucose Random 95 mg/dL (60-115); Potassium 3.9 mmol/L (3.3-5.1); Sodium 139 mmol/L (135-145)
[2024-04-06 07:06] VITALS: BP 111/68; PULSE 69; RESP 14; TEMP 36; O2SAT 96
[2024-04-06] MEDS: Memantine HCl 10 MG TABLET PO ×2 (07:27→20:28)
[2024-04-06] MEDS: FLUoxetine HCl 20 MG CAPSULE PO (07:27)
[2024-04-06] MEDS: Folic Acid 1 MG TABLET PO (07:27)
--- NOTE | 2024-04-06 09:57 | PC.NURSE ---
Pt alert and cooperative with morning assessment . Pt sitting by window eating breakfast , no behavior issues noted .
--- NOTE | 2024-04-06 10:26 | HO.PM.IMPN ---
Subjective Subjective Date of Service: 04/06/24 Interval History: seen and examined has no new problems doing well, cooperative with care Physical Exam Vital Signs: Vital Signs: Last Vital Signs Temp 96.8 F 04/06/24 07:06 Pulse 69 04/06/24 07:06 Resp 14 04/06/24 07:06 BP 111/68 04/06/24 07:06 Pulse Ox 96 04/06/24 07:06 O2 Del Method Room Air 04/06/24 07:06 BMI result Body Mass Index 19.8 Const: Other: Constitutional : Awake, interactive, not in distress Neck : Normal inspection, Supple Cardiovascular : RRR, no JVP, no lower extremity edema Respiratory : bilateral air entry, basal fine crackles more on right side, no wheezes or rhonchi Gastrointestinal: soft, lax, Normal bowel sounds, Non tender Skin : Warm, Dry MSK: no swelling, redness or tenderness of the knee Neurological : Alert & oriented x1, No focal deficit Objective Data Active Medications Acetaminophen (Acetaminophen 325 Mg Tablet) 650 mg PO Q6H PRN PRN Reason: Headache/Pain Mild Scale (1-3) Last Admin: 03/27/24 08:24 Dose: 650 mg Documented By: JASWINDER Al Hydroxide/Mg Hydroxide (Magnesium Hydrox/Alum Hydrox 30 Ml Oral.Susp) 30 ml PO Q6H PRN PRN Reason: Heartburn/Nausea Donepezil HCl (Donepezil Hcl 10 Mg Tablet) 10 mg PO BEDTIME [facility] Last Admin: 04/05/24 21:28 Dose: 10 mg Documented By: HOLLAND Enoxaparin Sodium (Enoxaparin Sodium 40 Mg/0.4 Ml Syringe) 40 mg SUBCUT Q24H [facility] Last Admin: 04/05/24 21:28 Dose: 40 mg Documented By: HOLLAND Fluoxetine HCl (Fluoxetine Hcl 20 Mg Capsule) 20 mg PO DAILY [facility] Last Admin: 04/06/24 07:27 Dose: 20 mg Documented By: JOSEF Folic Acid (Folic Acid 1 Mg Tablet) 1 mg PO DAILY [facility] Last Admin: 04/06/24 07:27 Dose: 1 mg Documented By: JOSEF Magnesium Hydroxide (Milk Of Magnesia 30 Ml Oral.Susp) 30 ml PO DAILY PRN PRN Reason: Constipation Memantine (Memantine Hcl 10 Mg Tablet) 10 mg PO BID [facility] Last Admin: 04/06/24 07:27 Dose: 10 mg Documented By: JOSEF Olanzapine (Olanzapine 2.5 Mg Tablet) 2.5 mg PO TID PRN PRN Reason: agitation Ondansetron HCl (Ondansetron Hcl 4 Mg/2 Ml Vial) 4 mg IVPUSH Q8H PRN PRN Reason: Nausea and Vomiting Simethicone (Simethicone 80 Mg Tab.Chew) 80 mg PO QIDWMHS PRN PRN Reason: Gas Last Admin: 03/20/24 22:30 Dose: 80 mg Documented By: YULIET Sodium Chloride (0.9 % Sodium Chloride Flush 3 Ml Syringe) 3 ml IVFLUSH QSHIFT [facility] Last Admin: 04/06/24 04:50 Dose: Not Given Documented By: HOLLAND Non-Admin Reason: No Access Labs 04/06/24 05:54 04/06/24 05:54 Labs: Laboratory Results - last 24 hr 04/06/24 05:54 MCV 94.0 MCH 32.9 MCHC 35.0 RDW 13.8 Plt Count 230 MPV 10.6 Absolute Nucleated RBC 0.000 Nucleated RBC % (auto) 0.0 Anion Gap 13 Estim Creat Clear Calc 68.2 Estimated GFR > 60 Random Glucose 95 Calcium 8.7 Assessment and Plan (1) Pneumonia: Status: Acute (2) Dementia: Status: Acute (3) Acute metabolic encephalopathy: Status: Acute Plan 79yo M with Alzheimer's dementia + behavioral admitted to telemetry from for AMS, found to have sepsis from multifocal PNA pt on hospitalist service since 03/01/24 pt originally admitted to [facility] 01/02/24 but then sent to for sexual inappropriateness. 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 BCx negative, MRSA swab negative, given vanco + pip-shayne 03/01-03/04, finished ABX course with cefuroxime + azithro 03/04-03/08 for total of 7d Metabolic encephalopathy d/t above, resolved, back to baseline cognitive impairment. Abdominal pain-- resolved Sore throat- resolved, strep A, covid/flu/rsv--negative 5 cm epididymal cyst on R scrotum per Urology no intervention or further workup needed Alzheimer's dementia without behavioral disturbance continue fluoxetine, donepezil, memantine, prn olanzapine Knee pain--likely osteoarthritis resolved, tramadol PRN VTE ppx LMWH dispo Psychiatry will not take pt back stating that no further inpt psychiatric care is necessary so now he becomes a LTC placement issue. need for inpatient: awaiting placement CBC/ BMP, last checked 03/27 were stable ambulate in peres [facility] Stroke Does the patient have a stroke diagnosis?: No VTE Prior VTE?: No VTE Risk Level:: Medical - moderate - high VTE Device Contraindication: Treatment Not Indicated VTE Drug Contraindication: N/A - Med Ordered
--- NOTE | 2024-04-06 11:18 | MHC.CLN ---
F/U PO INTAKE USUALLY 75-100%. DIET RX: REGULAR-APPROPRIATE PT RECEIVING ENSURE BID TO INCREASE CALORIC INTAKE. PROVIDES 700 KCALS, 40 G PROTEIN. MONITOR PO INTAKE AND ENCOURAGE SUPPLEMENT. NO NEW WEIGHT SINCE 03/02. RD TO FOLLOW WEEKLY. AWAITING SNF PLACEMENT.
--- NOTE | 2024-04-06 11:44 | MHC.CM.PN ---
Patient awaiting placement. Per chart review, goal is dc to [facility]. Home to be sold by [employer] which will provide funds for [facility]. Per RN, no behavioral concerns at this time. Updates sent to SNFs for LTC placement, including nursing note. No bed offers at this time. CM will continue to follow.
--- NOTE | 2024-04-06 14:05 | PC.NURSE ---
patient alert and oriented, very pleasant and cooperative, no behavioral issues at all on this shift
[2024-04-06 15:24] VITALS: BP 108/68; PULSE 72; RESP 18; TEMP 36.4; O2SAT 93
[2024-04-06 18:59] VITALS: BP 107/64; PULSE 68; RESP 18; TEMP 36.1; O2SAT 96
[2024-04-06] MEDS: Donepezil HCl 10 MG TABLET PO (20:28)
[2024-04-06] MEDS: Enoxaparin Sodium 40 MG/0.4 ML SYRINGE SUBCUT (21:09)
[2024-04-07 04:00] VITALS: BP 116/66; PULSE 63; RESP 16; TEMP 36.2; O2SAT 94
[2024-04-07 07:24] VITALS: BP 107/76; PULSE 55; RESP 16; TEMP 36.1; O2SAT 96
[2024-04-07] MEDS: FLUoxetine HCl 20 MG CAPSULE PO (07:46)
[2024-04-07] MEDS: Memantine HCl 10 MG TABLET PO ×2 (07:46→21:33)
[2024-04-07] MEDS: Folic Acid 1 MG TABLET PO (07:46)
--- NOTE | 2024-04-07 13:53 | PC.NURSE ---
Pt alert , pt took all meds as directed, let this RN do assessment with no issues . Pt ambulating in the room with a steady gait. Pt sitting by window drinking tea . Pt offers no complaints .
[2024-04-07 15:10] VITALS: BP 110/59; PULSE 75; RESP 18; TEMP 36.8; O2SAT 93
--- NOTE | 2024-04-07 15:20 | HO.PM.IMPN ---
Subjective Subjective Date of Service: 04/07/24 Interval History: Doing well, no new issues Physical Exam Vital Signs: Vital Signs: Last Vital Signs Temp 98.3 F 04/07/24 15:10 Pulse 75 04/07/24 15:10 Resp 18 04/07/24 15:10 BP 110/59 L 04/07/24 15:10 Pulse Ox 93 04/07/24 15:10 O2 Del Method Room Air 04/07/24 15:10 BMI result Body Mass Index 19.8 Const: Other: Constitutional : Awake, interactive, not in distress Neck : Normal inspection, Supple Cardiovascular : RRR, no JVP, no lower extremity edema Respiratory : bilateral air entry, basal fine crackles more on right side, no wheezes or rhonchi Gastrointestinal: soft, lax, Normal bowel sounds, Non tender Skin : Warm, Dry MSK: no swelling, redness or tenderness of the knee Neurological : Alert & oriented x1, No focal deficit Objective Data Active Medications Acetaminophen (Acetaminophen 325 Mg Tablet) 650 mg PO Q6H PRN PRN Reason: Headache/Pain Mild Scale (1-3) Last Admin: 03/27/24 08:24 Dose: 650 mg Documented By: JASWINDER Al Hydroxide/Mg Hydroxide (Magnesium Hydrox/Alum Hydrox 30 Ml Oral.Susp) 30 ml PO Q6H PRN PRN Reason: Heartburn/Nausea Donepezil HCl (Donepezil Hcl 10 Mg Tablet) 10 mg PO BEDTIME [facility] Last Admin: 04/06/24 20:28 Dose: 10 mg Documented By: JACQUI Enoxaparin Sodium (Enoxaparin Sodium 40 Mg/0.4 Ml Syringe) 40 mg SUBCUT Q24H [facility] Last Admin: 04/06/24 21:09 Dose: 40 mg Documented By: JACQUI Fluoxetine HCl (Fluoxetine Hcl 20 Mg Capsule) 20 mg PO DAILY [facility] Last Admin: 04/07/24 07:46 Dose: 20 mg Documented By: JOSEF Folic Acid (Folic Acid 1 Mg Tablet) 1 mg PO DAILY [facility] Last Admin: 04/07/24 07:46 Dose: 1 mg Documented By: JOSEF Magnesium Hydroxide (Milk Of Magnesia 30 Ml Oral.Susp) 30 ml PO DAILY PRN PRN Reason: Constipation Memantine (Memantine Hcl 10 Mg Tablet) 10 mg PO BID [facility] Last Admin: 04/07/24 07:46 Dose: 10 mg Documented By: JOSEF Olanzapine (Olanzapine 2.5 Mg Tablet) 2.5 mg PO TID PRN PRN Reason: agitation Ondansetron HCl (Ondansetron Hcl 4 Mg/2 Ml Vial) 4 mg IVPUSH Q8H PRN PRN Reason: Nausea and Vomiting Simethicone (Simethicone 80 Mg Tab.Chew) 80 mg PO QIDWMHS PRN PRN Reason: Gas Last Admin: 03/20/24 22:30 Dose: 80 mg Documented By: YULIET Sodium Chloride (0.9 % Sodium Chloride Flush 3 Ml Syringe) 3 ml IVFLUSH QSHIFT [facility] Last Admin: 04/07/24 13:58 Dose: Not Given Documented By: JOSEF Non-Admin Reason: No Access Labs 04/06/24 05:54 04/06/24 05:54 Assessment and Plan (1) Pneumonia: Status: Acute (2) Dementia: Status: Acute (3) Acute metabolic encephalopathy: Status: Acute Plan 79yo M with Alzheimer's dementia + behavioral admitted to telemetry from for AMS, found to have sepsis from multifocal PNA pt on hospitalist service since 03/01/24 pt originally admitted to [facility] 01/02/24 but then sent to for sexual inappropriateness. Now awaiting termite technician placement essentially no change Resolved issues during hospitalization: Sepsis d/t PNA, resolved. BCx negative, MRSA swab negative, given vanco + pip-shayne 03/01-03/04, finished ABX course with cefuroxime + azithro 03/04-03/08 for total of 7d Metabolic encephalopathy d/t above, resolved, back to baseline cognitive impairment. Abdominal pain-- resolved Sore throat- resolved, strep A, covid/flu/rsv--negative 5 cm epididymal cyst on R scrotum per Urology no intervention or further workup needed Alzheimer's dementia without behavioral disturbance continue fluoxetine, donepezil, memantine, prn olanzapine Knee pain--likely osteoarthritis resolved, tramadol PRN VTE ppx LMWH dispo Psychiatry will not take pt back stating that no further inpt psychiatric care is necessary so now he becomes a LTC placement issue. need for inpatient: awaiting placement CBC/ BMP, last checked 03/27 were stable ambulate in [place] encourage staff to walk several times a day Quality Stroke Does the patient have a stroke diagnosis?: No VTE Prior VTE?: No VTE Risk Level:: Medical - moderate - high VTE Device Contraindication: Treatment Not Indicated VTE Drug Contraindication: N/A - Med Ordered
[2024-04-07 19:29] VITALS: BP 96/62; PULSE 80; RESP 18; TEMP 36.5; O2SAT 96
[2024-04-07] MEDS: Donepezil HCl 10 MG TABLET PO (21:33)
[2024-04-07] MEDS: Enoxaparin Sodium 40 MG/0.4 ML SYRINGE SUBCUT (21:33)
[2024-04-08 04:00] VITALS: BP 115/67; PULSE 68; RESP 16; TEMP 36.1; O2SAT 95
[2024-04-08] MEDS: FLUoxetine HCl 20 MG CAPSULE PO (07:48)
[2024-04-08] MEDS: Memantine HCl 10 MG TABLET PO ×2 (07:48→20:07)
[2024-04-08] MEDS: Folic Acid 1 MG TABLET PO (07:48)
[2024-04-08 07:52] VITALS: BP 115/57; PULSE 78; RESP 18; TEMP 36.7; O2SAT 95
--- NOTE | 2024-04-08 10:35 | MHC.CM.PN ---
Patient awaiting LTC placement. No bed offers at this time. No behavioral concerns noted, nursing continues to document. CM will continue to update referrals on behavior.
--- NOTE | 2024-04-08 11:43 | PC.NURSE ---
Pt alert, Pt compliant with medications, ambulates independently in room, no behaviors noted.
[2024-04-08 15:28] VITALS: BP 100/66; PULSE 74; RESP 18; TEMP 36.5; O2SAT 96
--- NOTE | 2024-04-08 15:53 | P.PNIM_ITS ---
Subjective Subjective Date of Service: 04/08/24 Interval History: Doing well, no pain Physical Exam 2 Vital Signs: Vital Signs: Last Vital Signs Temp 97.7 F 04/08/24 15:28 Pulse 74 04/08/24 15:28 Resp 18 04/08/24 15:28 BP 100/66 04/08/24 15:28 Pulse Ox 96 04/08/24 15:28 O2 Del Method Room Air 04/08/24 15:28 BMI result Body Mass Index 19.8 Const: Other: Constitutional : Awake, interactive, not in distress Neck : Normal inspection, Supple Cardiovascular : RRR, no JVP, no lower extremity edema Respiratory : bilateral air entry, basal fine crackles more on right side, no wheezes or rhonchi Gastrointestinal: soft, lax, Normal bowel sounds, Non tender Skin : Warm, Dry MSK: no swelling, redness or tenderness of the knee Neurological : Alert & oriented x1, No focal deficit Objective Data Active Medications Acetaminophen (Acetaminophen 325 Mg Tablet) 650 mg PO Q6H PRN PRN Reason: Headache/Pain Mild Scale (1-3) Last Admin: 03/27/24 08:24 Dose: 650 mg Documented By: JASWINDER Al Hydroxide/Mg Hydroxide (Magnesium Hydrox/Alum Hydrox 30 Ml Oral.Susp) 30 ml PO Q6H PRN PRN Reason: Heartburn/Nausea Donepezil HCl (Donepezil Hcl 10 Mg Tablet) 10 mg PO BEDTIME [facility] Last Admin: 04/07/24 21:33 Dose: 10 mg Documented By: NAGA Enoxaparin Sodium (Enoxaparin Sodium 40 Mg/0.4 Ml Syringe) 40 mg SUBCUT Q24H [facility] Last Admin: 04/07/24 21:33 Dose: 40 mg Documented By: NAGA Fluoxetine HCl (Fluoxetine Hcl 20 Mg Capsule) 20 mg PO DAILY [facility] Last Admin: 04/08/24 07:48 Dose: 20 mg Documented By: MARION Folic Acid (Folic Acid 1 Mg Tablet) 1 mg PO DAILY [facility] Last Admin: 04/08/24 07:48 Dose: 1 mg Documented By: MARION Magnesium Hydroxide (Milk Of Magnesia 30 Ml Oral.Susp) 30 ml PO DAILY PRN PRN Reason: Constipation Memantine (Memantine Hcl 10 Mg Tablet) 10 mg PO BID [facility] Last Admin: 04/08/24 07:48 Dose: 10 mg Documented By: MARION Olanzapine (Olanzapine 2.5 Mg Tablet) 2.5 mg PO TID PRN PRN Reason: agitation Ondansetron HCl (Ondansetron Hcl 4 Mg/2 Ml Vial) 4 mg IVPUSH Q8H PRN PRN Reason: Nausea and Vomiting Simethicone (Simethicone 80 Mg Tab.Chew) 80 mg PO QIDWMHS PRN PRN Reason: Gas Last Admin: 03/20/24 22:30 Dose: 80 mg Documented By: YULIET Sodium Chloride (0.9 % Sodium Chloride Flush 3 Ml Syringe) 3 ml IVFLUSH QSHIFT [facility] Last Admin: 04/08/24 15:36 Dose: Not Given Documented By: MARION Non-Admin Reason: No Access Labs 04/06/24 05:54 04/06/24 05:54 Assessment and Plan (1) Pneumonia: Status: Acute (2) Dementia: Status: Acute (3) Acute metabolic encephalopathy: Status: Acute Plan 79yo M with Alzheimer's dementia + behavioral admitted to telemetry from for AMS, found to have sepsis from multifocal PNA pt on hospitalist service since 03/01/24 pt originally admitted to [facility] 01/02/24 but then sent to for sexual inappropriateness. Now awaiting prison placement essentially no change Resolved issues during hospitalization: Sepsis d/t PNA, resolved. BCx negative, MRSA swab negative, given vanco + pip- shayne 03/01-03/04, finished ABX course with cefuroxime + azithro 03/04-03/08 for total of 7d Metabolic encephalopathy d/t above, resolved, back to baseline cognitive impairment. Abdominal pain-- resolved Sore throat- resolved, strep A, covid/flu/rsv--negative 5 cm epididymal cyst on R scrotum per Urology no intervention or further workup needed Alzheimer's dementia without behavioral disturbance continue fluoxetine, donepezil, memantine, prn olanzapine Knee pain--likely osteoarthritis resolved, tramadol PRN [place] need for inpatient: awaiting placement CBC/ BMP, last checked 03/27 were stable ambulate in [place] encourage staff to walk several times a day dispo Psychiatry will not take pt back stating that no further inpt psychiatric care is necessary so now he becomes a LTC placement is VTE ppx LMWH Quality Stroke Does the patient have a stroke diagnosis?: No VTE Prior VTE?: No VTE Risk Level:: Medical - moderate - high VTE Device Contraindication: Treatment Not Indicated VTE Drug Contraindication: N/A - Med Ordered
[2024-04-08 19:01] VITALS: BP 130/61; PULSE 85; RESP 18; TEMP 36.6; O2SAT 97
[2024-04-08] MEDS: Donepezil HCl 10 MG TABLET PO (20:08)
[2024-04-08] MEDS: Enoxaparin Sodium 40 MG/0.4 ML SYRINGE SUBCUT (21:30)
[2024-04-09 03:30] VITALS: BP 99/57; PULSE 55; RESP 20; TEMP 36.8; O2SAT 93
[2024-04-09 07:05] VITALS: BP 119/72; PULSE 77; RESP 17; TEMP 36.6; O2SAT 94
[2024-04-09] MEDS: Folic Acid 1 MG TABLET PO (08:59)
[2024-04-09] MEDS: FLUoxetine HCl 20 MG CAPSULE PO (08:59)
[2024-04-09] MEDS: Memantine HCl 10 MG TABLET PO ×2 (08:59→20:48)
--- NOTE | 2024-04-09 13:10 | HO.PM.IMPN ---
Subjective Subjective Date of Service: 04/09/24 Interval History: Pt seen and examined and discussed with RN, pt voices no new issues, and no new concern from nursing Physical Exam Vital Signs: Vital Signs: Last Vital Signs Temp 98 F 04/09/24 07:05 Pulse 77 04/09/24 07:05 Resp 17 04/09/24 07:05 BP 119/72 04/09/24 07:05 Pulse Ox 94 04/09/24 07:05 O2 Del Method Room Air 04/09/24 07:05 BMI result Body Mass Index 19.8 Const: Other: Constitutional : Awake, interactive, not in distress Neck : Normal inspection, Supple Cardiovascular : RRR, no JVP, no lower extremity edema Respiratory : bilateral air entry, basal fine crackles more on right side, no wheezes or rhonchi Gastrointestinal: soft, lax, Normal bowel sounds, Non tender Skin : Warm, Dry MSK: no swelling, redness or tenderness of the knee Neurological : Alert & oriented x1, No focal deficit Objective Data Active Medications Acetaminophen (Acetaminophen 325 Mg Tablet) 650 mg PO Q6H PRN PRN Reason: Headache/Pain Mild Scale (1-3) Last Admin: 03/27/24 08:24 Dose: 650 mg Documented By: JASWINDER Al Hydroxide/Mg Hydroxide (Magnesium Hydrox/Alum Hydrox 30 Ml Oral.Susp) 30 ml PO Q6H PRN PRN Reason: Heartburn/Nausea Donepezil HCl (Donepezil Hcl 10 Mg Tablet) 10 mg PO BEDTIME [facility] Last Admin: 04/08/24 20:08 Dose: 10 mg Documented By: JACQUI Enoxaparin Sodium (Enoxaparin Sodium 40 Mg/0.4 Ml Syringe) 40 mg SUBCUT Q24H [facility] Last Admin: 04/08/24 21:30 Dose: 40 mg Documented By: JACQUI Fluoxetine HCl (Fluoxetine Hcl 20 Mg Capsule) 20 mg PO DAILY [facility] Last Admin: 04/09/24 08:59 Dose: 20 mg Documented By: ANTON Folic Acid (Folic Acid 1 Mg Tablet) 1 mg PO DAILY [facility] Last Admin: 04/09/24 08:59 Dose: 1 mg Documented By: ANTON Magnesium Hydroxide (Milk Of Magnesia 30 Ml Oral.Susp) 30 ml PO DAILY PRN PRN Reason: Constipation Memantine (Memantine Hcl 10 Mg Tablet) 10 mg PO BID [facility] Last Admin: 04/09/24 08:59 Dose: 10 mg Documented By: ANTON Olanzapine (Olanzapine 2.5 Mg Tablet) 2.5 mg PO TID PRN PRN Reason: agitation Ondansetron HCl (Ondansetron Hcl 4 Mg/2 Ml Vial) 4 mg IVPUSH Q8H PRN PRN Reason: Nausea and Vomiting Simethicone (Simethicone 80 Mg Tab.Chew) 80 mg PO QIDWMHS PRN PRN Reason: Gas Last Admin: 03/20/24 22:30 Dose: 80 mg Documented By: YULIET Sodium Chloride (0.9 % Sodium Chloride Flush 3 Ml Syringe) 3 ml IVFLUSH QSHIFT [facility] Last Admin: 04/09/24 08:59 Dose: Not Given Documented By: ANTON Non-Admin Reason: No Access Labs 04/06/24 05:54 04/06/24 05:54 Assessment and Plan (1) Pneumonia: Status: Acute (2) Dementia: Status: Acute (3) Acute metabolic encephalopathy: Status: Acute Plan 79yo M with Alzheimer's dementia + behavioral admitted to telemetry from for AMS, found to have sepsis from multifocal PNA pt on hospitalist service since 03/01/24 pt originally admitted to [facility] 01/02/24 but then sent to for sexual inappropriateness. Now awaiting shelter placement essentially no change Resolved issues during hospitalization: Sepsis d/t PNA, resolved. BCx negative, MRSA swab negative, given vanco + pip-shayne 03/01-03/04, finished ABX course with cefuroxime + azithro 03/04-03/08 for total of 7d Metabolic encephalopathy d/t above, resolved, back to baseline cognitive impairment. Abdominal pain-- resolved Sore throat- resolved, strep A, covid/flu/rsv--negative 5 cm epididymal cyst on R scrotum per Urology no intervention or further workup needed Alzheimer's dementia without behavioral disturbance continue fluoxetine, donepezil, memantine, prn olanzapine Knee pain--likely osteoarthritis resolved, tramadol PRN [place]. need for inpatient: awaiting placement CBC/ BMP, last checked 04/06 were stable ambulate in [place] encourage staff to walk several times a day Monitor with camera dispo Psychiatry will not take pt back stating that no further inpt psychiatric care is necessary so now he becomes a LTC placement is VTE ppx LMWH Quality Stroke Does the patient have a stroke diagnosis?: No VTE Prior VTE?: No VTE Risk Level:: Medical - moderate - high VTE Device Contraindication: Treatment Not Indicated VTE Drug Contraindication: N/A - Med Ordered
--- NOTE | 2024-04-09 13:57 | PC.NURSE ---
Pt alert and pleasant. Pt compliant with medications. ambulates independently in room. Pt sitting by window, no behaviors noted.
[2024-04-09 15:35] VITALS: BP 108/63; PULSE 68; RESP 18; TEMP 36.5; O2SAT 94
[2024-04-09 19:54] VITALS: BP 115/66; PULSE 65; RESP 18; TEMP 36.2; O2SAT 96
[2024-04-09] MEDS: Donepezil HCl 10 MG TABLET PO (20:48)
[2024-04-09] MEDS: Enoxaparin Sodium 40 MG/0.4 ML SYRINGE SUBCUT (22:11)
[2024-04-10 03:21] VITALS: BP 137/66; PULSE 74; RESP 16; TEMP 36.8; O2SAT 94
--- NOTE | 2024-04-10 05:34 | PC.NURSE ---
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
[2024-04-10 07:15] VITALS: BP 105/68; PULSE 59; RESP 16; TEMP 36.6; O2SAT 95
[2024-04-10] MEDS: Memantine HCl 10 MG TABLET PO ×2 (09:10→20:56)
[2024-04-10] MEDS: Folic Acid 1 MG TABLET PO (09:10)
[2024-04-10] MEDS: FLUoxetine HCl 20 MG CAPSULE PO (09:10)
--- NOTE | 2024-04-10 12:53 | P.PNIM_ITS ---
Subjective Subjective Date of Service: 04/10/24 Interval History: Pt seen and examined and discussed with RN, pt voices no new issues, and no new concern from nursing. Very pleasant, cooperative Physical Exam 2 Vital Signs: Vital Signs: Last Vital Signs Temp 98 F 04/10/24 07:15 Pulse 59 04/10/24 07:15 Resp 16 04/10/24 07:15 BP 105/68 04/10/24 07:15 Pulse Ox 95 04/10/24 07:15 O2 Del Method Room Air 04/10/24 07:15 BMI result Body Mass Index 19.8 Const: Other: Constitutional : Awake, interactive, not in distress Neck : Normal inspection, Supple Cardiovascular : RRR, no JVP, no lower extremity edema Respiratory : bilateral air entry, basal fine crackles more on right side, no wheezes or rhonchi Gastrointestinal: soft, lax, Normal bowel sounds, Non tender Skin : Warm, Dry MSK: no swelling, redness or tenderness of the knee Neurological : Alert & oriented x1, No focal deficit Objective Data Active Medications Acetaminophen (Acetaminophen 325 Mg Tablet) 650 mg PO Q6H PRN PRN Reason: Headache/Pain Mild Scale (1-3) Last Admin: 03/27/24 08:24 Dose: 650 mg Documented By: JASWINDER Al Hydroxide/Mg Hydroxide (Magnesium Hydrox/Alum Hydrox 30 Ml Oral.Susp) 30 ml PO Q6H PRN PRN Reason: Heartburn/Nausea Donepezil HCl (Donepezil Hcl 10 Mg Tablet) 10 mg PO BEDTIME [facility] Last Admin: 04/09/24 20:48 Dose: 10 mg Documented By: JAM Enoxaparin Sodium (Enoxaparin Sodium 40 Mg/0.4 Ml Syringe) 40 mg SUBCUT Q24H [facility] Last Admin: 04/09/24 22:11 Dose: 40 mg Documented By: JAM Fluoxetine HCl (Fluoxetine Hcl 20 Mg Capsule) 20 mg PO DAILY [facility] Last Admin: 04/10/24 09:10 Dose: 20 mg Documented By: ANTON Folic Acid (Folic Acid 1 Mg Tablet) 1 mg PO DAILY [facility] Last Admin: 04/10/24 09:10 Dose: 1 mg Documented By: ANTON Magnesium Hydroxide (Milk Of Magnesia 30 Ml Oral.Susp) 30 ml PO DAILY PRN PRN Reason: Constipation Memantine (Memantine Hcl 10 Mg Tablet) 10 mg PO BID [facility] Last Admin: 04/10/24 09:10 Dose: 10 mg Documented By: ANTON Olanzapine (Olanzapine 2.5 Mg Tablet) 2.5 mg PO TID PRN PRN Reason: agitation Ondansetron HCl (Ondansetron Hcl 4 Mg/2 Ml Vial) 4 mg IVPUSH Q8H PRN PRN Reason: Nausea and Vomiting Simethicone (Simethicone 80 Mg Tab.Chew) 80 mg PO QIDWMHS PRN PRN Reason: Gas Last Admin: 03/20/24 22:30 Dose: 80 mg Documented By: YULIET Sodium Chloride (0.9 % Sodium Chloride Flush 3 Ml Syringe) 3 ml IVFLUSH QSHIFT [facility] Last Admin: 04/10/24 09:08 Dose: Not Given Documented By: ANTON Non-Admin Reason: No Access Labs 04/06/24 05:54 04/06/24 05:54 Assessment and Plan (1) Pneumonia: Status: Acute (2) Dementia: Status: Acute (3) Acute metabolic encephalopathy: Status: Acute Plan 79yo M with Alzheimer's dementia + behavioral admitted to telemetry from for AMS, found to have sepsis from multifocal PNA pt on hospitalist service since 03/01/24 pt originally admitted to [facility] 01/02/24 but then sent to for sexual inappropriateness. 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 BCx negative, MRSA swab negative, given vanco + pip- shayne 03/01-03/04, finished ABX course with cefuroxime + azithro 03/04-03/08 for total of 7d Metabolic encephalopathy d/t above, resolved, back to baseline cognitive impairment. Abdominal pain-- resolved Sore throat- resolved, strep A, covid/flu/rsv--negative 5 cm epididymal cyst on R scrotum per Urology no intervention or further workup needed Alzheimer's dementia without behavioral disturbance continue fluoxetine, donepezil, memantine, prn olanzapine Knee pain--likely osteoarthritis resolved, tramadol PRN need for inpatient: awaiting placement CBC/ BMP, last checked 04/06 were stable ambulate in [place] encourage staff to walk several times a day Monitor with camera dispo Psychiatry will not take pt back stating that no further inpt psychiatric care is necessary so now he becomes a LTC placement is VTE ppx LMWH Quality Stroke Does the patient have a stroke diagnosis?: No VTE Prior VTE?: No VTE Risk Level:: Medical - moderate - high VTE Device Contraindication: Treatment Not Indicated VTE Drug Contraindication: N/A - Med Ordered
[2024-04-10 16:00] VITALS: BP 99/61; PULSE 73; RESP 18; TEMP 36.1; O2SAT 93
[2024-04-10 20:00] VITALS: BP 96/68; PULSE 61; RESP 18; TEMP 36.4; O2SAT 94
[2024-04-10] MEDS: Donepezil HCl 10 MG TABLET PO (20:56)
[2024-04-10] MEDS: Enoxaparin Sodium 40 MG/0.4 ML SYRINGE SUBCUT (21:45)
[2024-04-11 04:00] VITALS: BP 110/65; PULSE 70; RESP 16; TEMP 36.5; O2SAT 94
--- NOTE | 2024-04-11 05:20 | PC.NURSE ---
Pt seen on bed alert and oriented x2, pleasant and compliant to care and meds, slept fairly.
[2024-04-11 07:49] VITALS: BP 125/65; PULSE 64; RESP 18; TEMP 36.7; O2SAT 94
[2024-04-11] MEDS: Memantine HCl 10 MG TABLET PO ×2 (07:56→21:35)
[2024-04-11] MEDS: Folic Acid 1 MG TABLET PO (07:56)
[2024-04-11] MEDS: FLUoxetine HCl 20 MG CAPSULE PO (07:56)
--- NOTE | 2024-04-11 10:45 | PC.NURSE ---
Ptt calm cooperative, took meds . intependent in room offered no complaint A&O.
--- NOTE | 2024-04-11 11:12 | MHC.CM.PN ---
Patient awaiting LTC placement. [facility] is interested. Updated RN notes sent. No behavioral concerns. Awaiting response. CM will continue to follow.
--- NOTE | 2024-04-11 11:54 | HO.PM.IMPN ---
Subjective Subjective Date of Service: 04/11/24 Interval History: doing well,no new issues Physical Exam Vital Signs: Vital Signs: Last Vital Signs Temp 98.0 F 04/11/24 07:49 Pulse 64 04/11/24 07:49 Resp 18 04/11/24 07:49 BP 125/65 04/11/24 07:49 Pulse Ox 94 04/11/24 07:49 O2 Del Method Room Air 04/11/24 07:49 BMI result Body Mass Index 19.8 Const: Other: Constitutional : Awake, interactive, not in distress Neck : Normal inspection, Supple Cardiovascular : RRR, no JVP, no lower extremity edema Respiratory : bilateral air entry, basal fine crackles more on right side, no wheezes or rhonchi Gastrointestinal: soft, lax, Normal bowel sounds, Non tender Skin : Warm, Dry MSK: no swelling, redness or tenderness of the knee Neurological : Alert & oriented x1, No focal deficit Objective Data Active Medications Acetaminophen (Acetaminophen 325 Mg Tablet) 650 mg PO Q6H PRN PRN Reason: Headache/Pain Mild Scale (1-3) Last Admin: 03/27/24 08:24 Dose: 650 mg Documented By: JASWINDER Al Hydroxide/Mg Hydroxide (Magnesium Hydrox/Alum Hydrox 30 Ml Oral.Susp) 30 ml PO Q6H PRN PRN Reason: Heartburn/Nausea Donepezil HCl (Donepezil Hcl 10 Mg Tablet) 10 mg PO BEDTIME COUNTS INCLUDE 234 BEDS AT THE [facility] Last Admin: 04/10/24 20:56 Dose: 10 mg Documented By: ROQUE Enoxaparin Sodium (Enoxaparin Sodium 40 Mg/0.4 Ml Syringe) 40 mg SUBCUT Q24H COUNTS INCLUDE 234 BEDS AT THE [facility] Last Admin: 04/10/24 21:45 Dose: 40 mg Documented By: ROQUE Fluoxetine HCl (Fluoxetine Hcl 20 Mg Capsule) 20 mg PO DAILY COUNTS INCLUDE 234 BEDS AT THE [facility] Last Admin: 04/11/24 07:56 Dose: 20 mg Documented By: KARON Folic Acid (Folic Acid 1 Mg Tablet) 1 mg PO DAILY COUNTS INCLUDE 234 BEDS AT THE [facility] Last Admin: 04/11/24 07:56 Dose: 1 mg Documented By: KARON Magnesium Hydroxide (Milk Of Magnesia 30 Ml Oral.Susp) 30 ml PO DAILY PRN PRN Reason: Constipation Memantine (Memantine Hcl 10 Mg Tablet) 10 mg PO BID COUNTS INCLUDE 234 BEDS AT THE [facility] Last Admin: 04/11/24 07:56 Dose: 10 mg Documented By: KARON Olanzapine (Olanzapine 2.5 Mg Tablet) 2.5 mg PO TID PRN PRN Reason: agitation Ondansetron HCl (Ondansetron Hcl 4 Mg/2 Ml Vial) 4 mg IVPUSH Q8H PRN PRN Reason: Nausea and Vomiting Simethicone (Simethicone 80 Mg Tab.Chew) 80 mg PO QIDWMHS PRN PRN Reason: Gas Last Admin: 03/20/24 22:30 Dose: 80 mg Documented By: YULIET Sodium Chloride (0.9 % Sodium Chloride Flush 3 Ml Syringe) 3 ml IVFLUSH QSHIFT COUNTS INCLUDE 234 BEDS AT THE [facility] Last Admin: 04/11/24 07:56 Dose: Not Given Documented By: KARON Non-Admin Reason: No Access Labs 04/06/24 05:54 04/06/24 05:54 Assessment and Plan (1) Pneumonia: Status: Acute (2) Dementia: Status: Acute (3) Acute metabolic encephalopathy: Status: Acute Plan 79yo M with Alzheimer's dementia + behavioral admitted to telemetry from for AMS, found to have sepsis from multifocal PNA pt on hospitalist service since 03/01/24 pt originally admitted to [facility] 01/02/24 but then sent to for sexual inappropriateness. 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 BCx negative, MRSA swab negative, given vanco + pip-shayne 03/01-03/04, finished ABX course with cefuroxime + azithro 03/04-03/08 for total of 7d Metabolic encephalopathy d/t above, resolved, back to baseline cognitive impairment. Abdominal pain-- resolved Sore throat- resolved, strep A, covid/flu/rsv--negative 5 cm epididymal cyst on R scrotum per Urology no intervention or further workup needed Alzheimer's dementia without behavioral disturbance continue fluoxetine, donepezil, memantine, prn olanzapine Knee pain--likely osteoarthritis resolved, tramadol PRN need for inpatient: awaiting placement CBC/ BMP, last checked 04/06 were stable, check it ambulate in peres encourage staff to walk several times a day Monitor with camera dispo Psychiatry will not take pt back stating that no further inpt psychiatric care is necessary so now he becomes a LTC placement is VTE ppx LMWH Quality Stroke Does the patient have a stroke diagnosis?: No VTE Prior VTE?: No VTE Risk Level:: Medical - moderate - high VTE Device Contraindication: Treatment Not Indicated VTE Drug Contraindication: N/A - Med Ordered
[2024-04-11 15:31] VITALS: BP 96/59; PULSE 68; RESP 16; TEMP 36.6; O2SAT 93
--- NOTE | 2024-04-11 19:02 | PC.NURSE ---
Assumed care of patient at 15:30. Patient is alert and oriented x3. Patient remain on room air and lung sounds clear throughout. Patient is continent. Patient ambulates in room independently with good steady gait. Patient verbalized last BM as 04/11/24. Patient denied having pain. Patient was compliant with medications and care. No behaviors noted this shift. Frequent rounding performed and safety maintained throughout shift.
[2024-04-11 19:39] VITALS: BP 119/70; PULSE 80; RESP 14; TEMP 36.3; O2SAT 94
[2024-04-11] MEDS: Enoxaparin Sodium 40 MG/0.4 ML SYRINGE SUBCUT (21:35)
[2024-04-11] MEDS: Donepezil HCl 10 MG TABLET PO (21:35)
[2024-04-12] MEDS: Memantine HCl 10 MG TABLET PO ×2 (07:47→21:28)
[2024-04-12] MEDS: Folic Acid 1 MG TABLET PO (07:47)
[2024-04-12] MEDS: FLUoxetine HCl 20 MG CAPSULE PO (07:47)
[2024-04-12 07:57] VITALS: BP 105/70; PULSE 68; RESP 16; TEMP 36.6; O2SAT 92
--- NOTE | 2024-04-12 11:33 | HO.PM.IMPN ---
Subjective Subjective Date of Service: 04/12/24 Interval History: doing well,no new issues Physical Exam Vital Signs: Vital Signs: Last Vital Signs Temp 97.9 F 04/12/24 07:57 Pulse 68 04/12/24 07:57 Resp 16 04/12/24 07:57 BP 105/70 04/12/24 07:57 Pulse Ox 92 04/12/24 07:57 O2 Del Method Room Air 04/12/24 07:57 BMI result Body Mass Index 19.8 Const: Other: Constitutional : Awake, interactive, not in distress Neck : Normal inspection, Supple Cardiovascular : RRR, no JVP, no lower extremity edema Respiratory : bilateral air entry, basal fine crackles more on right side, no wheezes or rhonchi Gastrointestinal: soft, lax, Normal bowel sounds, Non tender Skin : Warm, Dry MSK: no swelling, redness or tenderness of the knee Neurological : Alert & oriented x1, No focal deficit Objective Data Active Medications Acetaminophen (Acetaminophen 325 Mg Tablet) 650 mg PO Q6H PRN PRN Reason: Headache/Pain Mild Scale (1-3) Last Admin: 03/27/24 08:24 Dose: 650 mg Documented By: JASWINDER Al Hydroxide/Mg Hydroxide (Magnesium Hydrox/Alum Hydrox 30 Ml Oral.Susp) 30 ml PO Q6H PRN PRN Reason: Heartburn/Nausea Donepezil HCl (Donepezil Hcl 10 Mg Tablet) 10 mg PO BEDTIME [facility] Last Admin: 04/11/24 21:35 Dose: 10 mg Documented By: JUANITO Enoxaparin Sodium (Enoxaparin Sodium 40 Mg/0.4 Ml Syringe) 40 mg SUBCUT Q24H [facility] Last Admin: 04/11/24 21:35 Dose: 40 mg Documented By: JUANITO Fluoxetine HCl (Fluoxetine Hcl 20 Mg Capsule) 20 mg PO DAILY [facility] Last Admin: 04/12/24 07:47 Dose: 20 mg Documented By: JOSEF Folic Acid (Folic Acid 1 Mg Tablet) 1 mg PO DAILY [facility] Last Admin: 04/12/24 07:47 Dose: 1 mg Documented By: JOSEF Magnesium Hydroxide (Milk Of Magnesia 30 Ml Oral.Susp) 30 ml PO DAILY PRN PRN Reason: Constipation Memantine (Memantine Hcl 10 Mg Tablet) 10 mg PO BID [facility] Last Admin: 04/12/24 07:47 Dose: 10 mg Documented By: JOSEF Olanzapine (Olanzapine 2.5 Mg Tablet) 2.5 mg PO TID PRN PRN Reason: agitation Ondansetron HCl (Ondansetron Hcl 4 Mg/2 Ml Vial) 4 mg IVPUSH Q8H PRN PRN Reason: Nausea and Vomiting Simethicone (Simethicone 80 Mg Tab.Chew) 80 mg PO QIDWMHS PRN PRN Reason: Gas Last Admin: 03/20/24 22:30 Dose: 80 mg Documented By: YULIET Sodium Chloride (0.9 % Sodium Chloride Flush 3 Ml Syringe) 3 ml IVFLUSH QSHIFT [facility] Last Admin: 04/12/24 06:59 Dose: Not Given Documented By: JOSEF Non-Admin Reason: No Access Labs 04/06/24 05:54 04/06/24 05:54 Assessment and Plan (1) Pneumonia: Status: Acute (2) Dementia: Status: Acute (3) Acute metabolic encephalopathy: Status: Acute Plan 79yo M with Alzheimer's dementia + behavioral admitted to telemetry from for AMS, found to have sepsis from multifocal PNA pt on hospitalist service since 03/01/24 pt originally admitted to [facility] 01/02/24 but then sent to for sexual inappropriateness. Now awaiting long-term placement essentially no change Resolved issues during hospitalization: Sepsis d/t PNA, resolved. BCx negative, MRSA swab negative, given vanco + pip-shayne 03/01-03/04, finished ABX course with cefuroxime + azithro 03/04-03/08 for total of 7d Metabolic encephalopathy d/t above, resolved, back to baseline cognitive impairment. Abdominal pain-- resolved Sore throat- resolved, strep A, covid/flu/rsv--negative 5 cm epididymal cyst on R scrotum per Urology no intervention or further workup needed Alzheimer's dementia without behavioral disturbance continue fluoxetine, donepezil, memantine, prn olanzapine Knee pain--likely osteoarthritis resolved, tramadol PRN need for inpatient: awaiting placement CBC/ BMP, last checked 04/06 were stable, weekly to 2 monthly labs, unless new cinical change ambulate in peres encourage staff to walk several times a day Monitor with camera dispo Psychiatry will not take pt back stating that no further inpt psychiatric care is necessary so now he becomes a LTC placement is VTE ppx LMWH Quality Stroke Does the patient have a stroke diagnosis?: No VTE Prior VTE?: No VTE Risk Level:: Medical - moderate - high VTE Device Contraindication: Treatment Not Indicated VTE Drug Contraindication: N/A - Med Ordered
--- NOTE | 2024-04-12 12:10 | PC.NURSE ---
Pt sitting up in bed , assessment done , pt cooperative , offers no complaints . Took meds as directed , no issues .
[2024-04-12 15:14] VITALS: BP 96/58; PULSE 62; RESP 16; TEMP 36.6; O2SAT 95
[2024-04-12 19:44] VITALS: BP 113/58; PULSE 61; RESP 16; TEMP 36.3; O2SAT 94
[2024-04-12] MEDS: Donepezil HCl 10 MG TABLET PO (21:28)
[2024-04-12] MEDS: Enoxaparin Sodium 40 MG/0.4 ML SYRINGE SUBCUT (21:29)
--- NOTE | 2024-04-13 01:20 | PC.NURSE ---
pt awaiting LTC placement. alert and cooperative, no behavioral issues noted at this time. will cont to clarke
[2024-04-13 07:16] VITALS: BP 104/66; PULSE 60; RESP 20; TEMP 36.6; O2SAT 92
[2024-04-13] MEDS: FLUoxetine HCl 20 MG CAPSULE PO (07:26)
[2024-04-13] MEDS: Memantine HCl 10 MG TABLET PO ×2 (07:26→21:31)
[2024-04-13] MEDS: Folic Acid 1 MG TABLET PO (07:26)
--- NOTE | 2024-04-13 09:49 | P.PNIM_ITS ---
Subjective Subjective Date of Service: 04/13/24 Interval History: Offers no new complaint Physical Exam 2 Vital Signs: Vital Signs: Last Vital Signs Temp 97.8 F 04/13/24 07:16 Pulse 60 04/13/24 07:16 Resp 20 04/13/24 07:16 BP 104/66 04/13/24 07:16 Pulse Ox 92 04/13/24 07:16 O2 Del Method Room Air 04/13/24 07:16 BMI result Body Mass Index 19.8 Const: Other: Constitutional : Awake, interactive, not in distress Neck : Normal inspection, Supple Cardiovascular : RRR, no JVP, no lower extremity edema Respiratory : bilateral air entry, basal fine crackles more on right side, no wheezes or rhonchi Gastrointestinal: soft, lax, Normal bowel sounds, Non tender Skin : Warm, Dry MSK: no swelling, redness or tenderness of the knee Neurological : Alert & oriented x1, No focal deficit Objective Data Active Medications Acetaminophen (Acetaminophen 325 Mg Tablet) 650 mg PO Q6H PRN PRN Reason: Headache/Pain Mild Scale (1-3) Last Admin: 03/27/24 08:24 Dose: 650 mg Documented By: JASWINDER Al Hydroxide/Mg Hydroxide (Magnesium Hydrox/Alum Hydrox 30 Ml Oral.Susp) 30 ml PO Q6H PRN PRN Reason: Heartburn/Nausea Donepezil HCl (Donepezil Hcl 10 Mg Tablet) 10 mg PO BEDTIME [facility] Last Admin: 04/12/24 21:28 Dose: 10 mg Documented By: JUANITO Enoxaparin Sodium (Enoxaparin Sodium 40 Mg/0.4 Ml Syringe) 40 mg SUBCUT Q24H [facility] Last Admin: 04/12/24 21:29 Dose: 40 mg Documented By: JUANITO Fluoxetine HCl (Fluoxetine Hcl 20 Mg Capsule) 20 mg PO DAILY [facility] Last Admin: 04/13/24 07:26 Dose: 20 mg Documented By: JSOEF Folic Acid (Folic Acid 1 Mg Tablet) 1 mg PO DAILY [facility] Last Admin: 04/13/24 07:26 Dose: 1 mg Documented By: JOSEF Magnesium Hydroxide (Milk Of Magnesia 30 Ml Oral.Susp) 30 ml PO DAILY PRN PRN Reason: Constipation Memantine (Memantine Hcl 10 Mg Tablet) 10 mg PO BID [facility] Last Admin: 04/13/24 07:26 Dose: 10 mg Documented By: JOSEF Olanzapine (Olanzapine 2.5 Mg Tablet) 2.5 mg PO TID PRN PRN Reason: agitation Ondansetron HCl (Ondansetron Hcl 4 Mg/2 Ml Vial) 4 mg IVPUSH Q8H PRN PRN Reason: Nausea and Vomiting Simethicone (Simethicone 80 Mg Tab.Chew) 80 mg PO QIDWMHS PRN PRN Reason: Gas Last Admin: 03/20/24 22:30 Dose: 80 mg Documented By: YULIET Sodium Chloride (0.9 % Sodium Chloride Flush 3 Ml Syringe) 3 ml IVFLUSH QSHIFT [facility] Last Admin: 04/13/24 06:27 Dose: Not Given Documented By: JOSEF Non-Admin Reason: No Access Labs 04/06/24 05:54 04/06/24 05:54 Assessment and Plan (1) Pneumonia: Status: Acute (2) Dementia: Status: Acute (3) Acute metabolic encephalopathy: Status: Acute Plan 79yo M with Alzheimer's dementia + behavioral admitted to telemetry from for AMS, found to have sepsis from multifocal PNA pt on hospitalist service since 03/01/24 pt originally admitted to [facility] 01/02/24 but then sent to for sexual inappropriateness. 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 BCx negative, MRSA swab negative, given vanco + pip- shayne 03/01-03/04, finished ABX course with cefuroxime + azithro 03/04-03/08 for total of 7d Metabolic encephalopathy d/t above, resolved, back to baseline cognitive impairment. Abdominal pain-- resolved Sore throat- resolved, strep A, covid/flu/rsv--negative 5 cm epididymal cyst on R scrotum per Urology no intervention or further workup needed Alzheimer's dementia without behavioral disturbance continue fluoxetine, donepezil, memantine, prn olanzapine Knee pain--likely osteoarthritis resolved, tramadol PRN need for inpatient: awaiting placement CBC/ BMP, last checked 04/06 were stable, weekly to twice monthly labs, unless new cinical change ambulate in peres encourage staff to walk several times a day Monitor with camera dispo Psychiatry will not take pt back stating that no further inpt psychiatric care is necessary so now he becomes a LTC placement is VTE ppx LMWH Quality Stroke Does the patient have a stroke diagnosis?: No VTE Prior VTE?: No VTE Risk Level:: Medical - moderate - high VTE Device Contraindication: Treatment Not Indicated VTE Drug Contraindication: N/A - Med Ordered
--- NOTE | 2024-04-13 10:54 | MHC.CM.PN ---
Patient continues to await LTC placement. No bed offers at this time. Referral expanded. No behavioral concerns per nursing. CM continues to send updates to referrals. Attempted to contact HCP Olga to discuss, no answer and no VM.
--- NOTE | 2024-04-13 11:27 | MHC.CLN ---
F/U DIET=REGULAR-APPROPRIATE. RECEIVING ENSURE BID TO INCREASE CALORIC INTAKE. PROVIDES 700 KCALS, 40 G PROTEIN. CONTINUES WITH PO 100% MANY MEALS. MONITOR PO INTAKE AND ENCOURAGE SUPPLEMENT. AWAITING SNF PLACEMENT.
[2024-04-13 12:06] VITALS: BMI 18.4
[2024-04-13 12:22] LABS: Hematocrit 40.8 % (42.0-52.0); Mean Corpuscular HGB Conc 34.3 g/dl (31.0-36.0); Mean Corpuscular Hemoglobin 32.3 pg (27.0-33.0); Mean Platelet Volume 10.4 fL (9.4-12.4); Platelet Count 234 X10*3/uL (160-400); Red Blood Count 4.34 X10*6/uL (4.60-5.80); White Blood Count 5.6 X10*3/uL (4.8-10.8)
[2024-04-13 13:11] LABS: Anion Gap 12 (12-20); Blood Urea Nitrogen 24 mg/dL (9-16); Calcium 8.6 mg/dL (8.4-10.2); Carbon Dioxide 23 mmol/L (22-29); Chloride 107 mmol/L (96-108); Creatinine Clr Calc Pharmacy 53.5; Estimated Glomerular Filt Rate > 60; Glucose Random 112 mg/dL (60-115); Sodium 138 mmol/L (135-145)
[2024-04-13 15:48] VITALS: BP 119/69; PULSE 84; RESP 16; TEMP 36.4; O2SAT 93
[2024-04-13 20:00] VITALS: BP 103/57; PULSE 67; RESP 18; TEMP 36.9; O2SAT 94
[2024-04-13] MEDS: Donepezil HCl 10 MG TABLET PO (21:31)
[2024-04-13] MEDS: Enoxaparin Sodium 40 MG/0.4 ML SYRINGE SUBCUT (21:31)
[2024-04-14 03:39] VITALS: BP 125/64; PULSE 75; RESP 18; TEMP 36.4; O2SAT 93
[2024-04-14 07:54] VITALS: BP 113/65; PULSE 65; RESP 18; TEMP 36.6; O2SAT 94
[2024-04-14] MEDS: FLUoxetine HCl 20 MG CAPSULE PO (08:07)
[2024-04-14] MEDS: Memantine HCl 10 MG TABLET PO ×2 (08:07→20:58)
[2024-04-14] MEDS: Folic Acid 1 MG TABLET PO (08:07)
--- NOTE | 2024-04-14 09:38 | PC.NURSE ---
pt alert , pt cooperative with morning assessment , pt sitting by window , pt offers no complaints .
--- NOTE | 2024-04-14 14:34 | P.PNIM_ITS ---
Subjective Subjective Date of Service: 04/14/24 Interval History: seen and evalauted this morning in good mood tolerating diet Review of Systems Review of Systems: Yes all other systems are reviewed and are negative Physical Exam 2 Vital Signs: Vital Signs: Last Vital Signs Temp 97.8 F 04/14/24 07:54 Pulse 65 04/14/24 07:54 Resp 18 04/14/24 07:54 BP 113/65 04/14/24 07:54 Pulse Ox 94 04/14/24 07:54 O2 Del Method Room Air 04/14/24 07:54 BMI result Body Mass Index 18.4 Const: Other: Constitutional : Awake, interactive, not in distress Neck : Normal inspection, Supple Cardiovascular : RRR, no JVP, no lower extremity edema Respiratory : bilateral air entry, basal fine crackles more on right side, no wheezes or rhonchi Gastrointestinal: soft, lax, Normal bowel sounds, Non tender Skin : Warm, Dry Neurological : Alert & oriented x1, No focal deficit Objective Data Active Medications Acetaminophen (Acetaminophen 325 Mg Tablet) 650 mg PO Q6H PRN PRN Reason: Headache/Pain Mild Scale (1-3) Last Admin: 03/27/24 08:24 Dose: 650 mg Documented By: JASWINDER Al Hydroxide/Mg Hydroxide (Magnesium Hydrox/Alum Hydrox 30 Ml Oral.Susp) 30 ml PO Q6H PRN PRN Reason: Heartburn/Nausea Donepezil HCl (Donepezil Hcl 10 Mg Tablet) 10 mg PO BEDTIME [facility] Last Admin: 04/13/24 21:31 Dose: 10 mg Documented By: PRISCILLA Enoxaparin Sodium (Enoxaparin Sodium 40 Mg/0.4 Ml Syringe) 40 mg SUBCUT Q24H [facility] Last Admin: 04/13/24 21:31 Dose: 40 mg Documented By: PRISCILLA Fluoxetine HCl (Fluoxetine Hcl 20 Mg Capsule) 20 mg PO DAILY [facility] Last Admin: 04/14/24 08:07 Dose: 20 mg Documented By: DABLani Folic Acid (Folic Acid 1 Mg Tablet) 1 mg PO DAILY [facility] Last Admin: 04/14/24 08:07 Dose: 1 mg Documented By: JOSEF Magnesium Hydroxide (Milk Of Magnesia 30 Ml Oral.Susp) 30 ml PO DAILY PRN PRN Reason: Constipation Memantine (Memantine Hcl 10 Mg Tablet) 10 mg PO BID [facility] Last Admin: 04/14/24 08:07 Dose: 10 mg Documented By: JOSEF Olanzapine (Olanzapine 2.5 Mg Tablet) 2.5 mg PO TID PRN PRN Reason: agitation Ondansetron HCl (Ondansetron Hcl 4 Mg/2 Ml Vial) 4 mg IVPUSH Q8H PRN PRN Reason: Nausea and Vomiting Simethicone (Simethicone 80 Mg Tab.Chew) 80 mg PO QIDWMHS PRN PRN Reason: Gas Last Admin: 03/20/24 22:30 Dose: 80 mg Documented By: YULIET Sodium Chloride (0.9 % Sodium Chloride Flush 3 Ml Syringe) 3 ml IVFLUSH QSHIFT [facility] Last Admin: 04/14/24 13:44 Dose: Not Given Documented By: JOSEF Non-Admin Reason: No Access Labs 04/13/24 12:09 04/13/24 12:09 Assessment and Plan (1) Dementia: Status: Acute Plan 79yo M with Alzheimer's dementia + behavioral admitted to telemetry from for AMS, found to have sepsis from multifocal PNA pt on hospitalist service since 03/01/24 pt originally admitted to [facility] 01/02/24 but then sent to for sexual inappropriateness. Now awaiting long-term placement No acute medical issues Resolved issues during hospitalization: - Sepsis d/t PNA, resolved. BCx negative, MRSA swab negative, given vanco + pip-shayne 03/01-03/04, finished ABX course with cefuroxime + azithro 03/04-03/08 for total of 7d - Metabolic encephalopathy d/t above, resolved, back to baseline cognitive impairment. - Abdominal pain-- resolved - Sore throat- resolved, strep A, covid/flu/rsv--negative - 5 cm epididymal cyst on R scrotum, per Urology no intervention or further workup needed - Alzheimer's dementia without behavioral disturbance, continue fluoxetine, donepezil, memantine, prn olanzapine - Knee pain--likely osteoarthritis resolved, tramadol PRN need for inpatient: awaiting placement CBC/ BMP, last checked 04/06 were stable, weekly to twice monthly labs, unless new cinical change ambulate in peres, encourage staff to walk several times a day Monitor with camera Psychiatry will not take pt back stating that no further inpt psychiatric care is necessary so now he becomes a pending LTC placement VTE ppx LMWH Quality Stroke Does the patient have a stroke diagnosis?: No VTE Prior VTE?: No VTE Risk Level:: Medical - moderate - high VTE Device Contraindication: Treatment Not Indicated VTE Drug Contraindication: N/A - Med Ordered
[2024-04-14 15:18] VITALS: BP 94/60; PULSE 79; RESP 18; TEMP 37.1; O2SAT 95
[2024-04-14 19:15] VITALS: BP 123/74; PULSE 62; RESP 18; TEMP 36.9; O2SAT 93
[2024-04-14] MEDS: Donepezil HCl 10 MG TABLET PO (20:58)
[2024-04-14] MEDS: Enoxaparin Sodium 40 MG/0.4 ML SYRINGE SUBCUT (21:01)
[2024-04-15 02:43] VITALS: BP 119/71; PULSE 83; RESP 16; TEMP 36.7; O2SAT 93
[2024-04-15 07:19] VITALS: BP 116/72; PULSE 73; RESP 18; TEMP 36.7; O2SAT 93
[2024-04-15] MEDS: FLUoxetine HCl 20 MG CAPSULE PO (08:11)
[2024-04-15] MEDS: Memantine HCl 10 MG TABLET PO ×2 (08:11→20:19)
[2024-04-15] MEDS: Folic Acid 1 MG TABLET PO (08:11)
--- NOTE | 2024-04-15 10:35 | MHC.CLN ---
F/U DIET=REGULAR-APPROPRIATE. RECEIVING ENSURE BID TO INCREASE CALORIC INTAKE. PROVIDES 700 KCALS, 40 G PROTEIN. CONTINUES WITH PO 100% MANY MEALS. WEIGHTS REVIEWED. 04/13=60 KG; 03/01=64.4 KG, 01/13=54.5 KG. SHOWS SIGNIFICANT FAVORABLE WEIGHT GAIN X 3 MONTHS OF +10%. WEIGHT ON 03/01 IS PATIENT'S HIGHEST WEIGHT DURING ADM. SHOWS -6.8% WEIGHT LOSS X ONE MONTH. NO ADDITIONAL NUTRITION INTERVENTIONS BASED ON OVERALL FAVORABLE WEIGHT GAIN AND GOOD PO INTAKE. MONITOR PO INTAKE AND ENCOURAGE SUPPLEMENT. AWAITING SNF PLACEMENT.
--- NOTE | 2024-04-15 11:19 | MHC.CM.PN ---
Addendum entered by Suzy Nieto RN 04/15/24 12:47: CM spoke w/ [facility] HCP. Updated on lack of bed offers. Yuliana continues to seek [facility] placement. [facility] requires proof of 1 yr of payments in liquid assets. Yuliana will be listing home soon, has an appt scheduled for title V for septic and then can list. CM will continue to follow. Original Note: Patient awaiting LTC placement. No bed offers at this time. No behavioral concerns. Nursing notes sent to facilities. Attempted to contact HCP x2, no answer and no VM. Per last conversation w/ HCP, she will continue to pursue [facility]. CM will continue to follow.
--- NOTE | 2024-04-15 12:10 | P.PNIM_ITS ---
Subjective Subjective Date of Service: 04/15/24 Interval History: seen and evalauted this morning in good mood tolerating diet Review of Systems Review of Systems: Yes all other systems are reviewed and are negative Physical Exam 2 Vital Signs: Vital Signs: Last Vital Signs Temp 98.0 F 04/15/24 07:19 Pulse 73 04/15/24 07:19 Resp 18 04/15/24 07:19 BP 116/72 04/15/24 07:19 Pulse Ox 93 04/15/24 07:19 O2 Del Method Room Air 04/15/24 07:19 BMI result Body Mass Index 18.4 Const: Other: Constitutional : Awake, interactive, not in distress Neck : Normal inspection, Supple Cardiovascular : RRR, no JVP, no lower extremity edema Respiratory : bilateral air entry, basal fine crackles more on right side, no wheezes or rhonchi Gastrointestinal: soft, lax, Normal bowel sounds, Non tender Skin : Warm, Dry Neurological : Alert & oriented x1, No focal deficit Objective Data Active Medications Acetaminophen (Acetaminophen 325 Mg Tablet) 650 mg PO Q6H PRN PRN Reason: Headache/Pain Mild Scale (1-3) Last Admin: 03/27/24 08:24 Dose: 650 mg Documented By: JASWINDER Al Hydroxide/Mg Hydroxide (Magnesium Hydrox/Alum Hydrox 30 Ml Oral.Susp) 30 ml PO Q6H PRN PRN Reason: Heartburn/Nausea Donepezil HCl (Donepezil Hcl 10 Mg Tablet) 10 mg PO BEDTIME [facility] Last Admin: 04/14/24 20:58 Dose: 10 mg Documented By: JACQUI Enoxaparin Sodium (Enoxaparin Sodium 40 Mg/0.4 Ml Syringe) 40 mg SUBCUT Q24H [facility] Last Admin: 04/14/24 21:01 Dose: 40 mg Documented By: JACQUI Fluoxetine HCl (Fluoxetine Hcl 20 Mg Capsule) 20 mg PO DAILY [facility] Last Admin: 04/15/24 08:11 Dose: 20 mg Documented By: TOMI Folic Acid (Folic Acid 1 Mg Tablet) 1 mg PO DAILY [facility] Last Admin: 04/15/24 08:11 Dose: 1 mg Documented By: TOMI Magnesium Hydroxide (Milk Of Magnesia 30 Ml Oral.Susp) 30 ml PO DAILY PRN PRN Reason: Constipation Memantine (Memantine Hcl 10 Mg Tablet) 10 mg PO BID [facility] Last Admin: 04/15/24 08:11 Dose: 10 mg Documented By: TOMI Olanzapine (Olanzapine 2.5 Mg Tablet) 2.5 mg PO TID PRN PRN Reason: agitation Ondansetron HCl (Ondansetron Hcl 4 Mg/2 Ml Vial) 4 mg IVPUSH Q8H PRN PRN Reason: Nausea and Vomiting Simethicone (Simethicone 80 Mg Tab.Chew) 80 mg PO QIDWMHS PRN PRN Reason: Gas Last Admin: 03/20/24 22:30 Dose: 80 mg Documented By: YULIET Sodium Chloride (0.9 % Sodium Chloride Flush 3 Ml Syringe) 3 ml IVFLUSH QSHIFT [facility] Last Admin: 04/15/24 08:11 Dose: Not Given Documented By: TOMI Non-Admin Reason: No Access Labs 04/13/24 12:09 04/13/24 12:09 Assessment and Plan (1) Dementia: Status: Acute Plan 79yo M with Alzheimer's dementia + behavioral admitted to telemetry from for AMS, found to have sepsis from multifocal PNA pt on hospitalist service since 03/01/24 pt originally admitted to [facility] 01/02/24 but then sent to for sexual inappropriateness. 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 BCx negative, MRSA swab negative, given vanco + pip-shayne 03/01-03/04, finished ABX course with cefuroxime + azithro 03/04-03/08 for total of 7d - Metabolic encephalopathy d/t above, resolved, back to baseline cognitive impairment. - Abdominal pain-- resolved - Sore throat- resolved, strep A, covid/flu/rsv--negative - 5 cm epididymal cyst on R scrotum, per Urology no intervention or further workup needed - Alzheimer's dementia without behavioral disturbance, continue fluoxetine, donepezil, memantine, prn olanzapine - Knee pain--likely osteoarthritis resolved, tramadol PRN need for inpatient: awaiting placement CBC/ BMP, last checked 04/06 were stable, weekly to twice monthly labs, unless new cinical change ambulate in [place], encourage staff to walk several times a day Monitor with camera Psychiatry will not take pt back stating that no further inpt psychiatric care is necessary so now he becomes a pending LTC placement VTE ppx LMWH Quality Stroke Does the patient have a stroke diagnosis?: No VTE Prior VTE?: No VTE Risk Level:: Medical - moderate - high VTE Device Contraindication: Treatment Not Indicated VTE Drug Contraindication: N/A - Med Ordered
[2024-04-15 15:35] VITALS: BP 98/57; PULSE 72; RESP 18; TEMP 36.2; O2SAT 95
[2024-04-15 19:13] VITALS: BP 115/74; PULSE 79; RESP 18; TEMP 36.4; O2SAT 94
[2024-04-15] MEDS: Donepezil HCl 10 MG TABLET PO (20:19)
[2024-04-15] MEDS: Enoxaparin Sodium 40 MG/0.4 ML SYRINGE SUBCUT (20:20)
[2024-04-16 03:41] VITALS: BP 101/59; PULSE 65; RESP 16; TEMP 36.2; O2SAT 93
[2024-04-16 07:31] VITALS: BP 113/62; PULSE 64; RESP 18; TEMP 36.6; O2SAT 91
[2024-04-16] MEDS: FLUoxetine HCl 20 MG CAPSULE PO (09:22)
[2024-04-16] MEDS: Memantine HCl 10 MG TABLET PO ×2 (09:22→20:31)
[2024-04-16] MEDS: Folic Acid 1 MG TABLET PO (09:22)
--- NOTE | 2024-04-16 13:19 | P.PNIM_ITS ---
Subjective Subjective Date of Service: 04/16/24 Interval History: seen and evalauted this morning in good mood, having breakfast tolerating diet Review of Systems Review of Systems: Yes all other systems are reviewed and are negative Physical Exam 2 Vital Signs: Vital Signs: Last Vital Signs Temp 97.9 F 04/16/24 07:31 Pulse 64 04/16/24 07:31 Resp 18 04/16/24 07:31 BP 113/62 04/16/24 07:31 Pulse Ox 91 L 04/16/24 07:31 O2 Del Method Room Air 04/16/24 07:31 BMI result Body Mass Index 18.4 Const: Other: Constitutional : Awake, interactive, not in distress Neck : Normal inspection, Supple Cardiovascular : RRR, no JVP, no lower extremity edema Respiratory : bilateral air entry, no crackles , no wheezes or rhonchi Gastrointestinal: soft, lax, Normal bowel sounds, Non tender Skin : Warm, Dry Neurological : Alert & oriented x1, No focal deficit Objective Data Active Medications Acetaminophen (Acetaminophen 325 Mg Tablet) 650 mg PO Q6H PRN PRN Reason: Headache/Pain Mild Scale (1-3) Last Admin: 03/27/24 08:24 Dose: 650 mg Documented By: JASWINDER Al Hydroxide/Mg Hydroxide (Magnesium Hydrox/Alum Hydrox 30 Ml Oral.Susp) 30 ml PO Q6H PRN PRN Reason: Heartburn/Nausea Donepezil HCl (Donepezil Hcl 10 Mg Tablet) 10 mg PO BEDTIME [facility] Last Admin: 04/15/24 20:19 Dose: 10 mg Documented By: JACQUI Enoxaparin Sodium (Enoxaparin Sodium 40 Mg/0.4 Ml Syringe) 40 mg SUBCUT Q24H [facility] Last Admin: 04/15/24 20:20 Dose: 40 mg Documented By: JACQUI Fluoxetine HCl (Fluoxetine Hcl 20 Mg Capsule) 20 mg PO DAILY [facility] Last Admin: 04/16/24 09:22 Dose: 20 mg Documented By: MANDA Folic Acid (Folic Acid 1 Mg Tablet) 1 mg PO DAILY [facility] Last Admin: 04/16/24 09:22 Dose: 1 mg Documented By: MANDA Magnesium Hydroxide (Milk Of Magnesia 30 Ml Oral.Susp) 30 ml PO DAILY PRN PRN Reason: Constipation Memantine (Memantine Hcl 10 Mg Tablet) 10 mg PO BID [facility] Last Admin: 04/16/24 09:22 Dose: 10 mg Documented By: MANDA Olanzapine (Olanzapine 2.5 Mg Tablet) 2.5 mg PO TID PRN PRN Reason: agitation Ondansetron HCl (Ondansetron Hcl 4 Mg/2 Ml Vial) 4 mg IVPUSH Q8H PRN PRN Reason: Nausea and Vomiting Simethicone (Simethicone 80 Mg Tab.Chew) 80 mg PO QIDWMHS PRN PRN Reason: Gas Last Admin: 03/20/24 22:30 Dose: 80 mg Documented By: YULIET Labs 04/13/24 12:09 04/13/24 12:09 Assessment and Plan (1) Dementia: Status: Acute Plan 79yo M with Alzheimer's dementia + behavioral admitted to telemetry from for AMS, found to have sepsis from multifocal PNA pt on hospitalist service since 03/01/24 pt originally admitted to [facility] 01/02/24 but then sent to for sexual inappropriateness. Now awaiting prison placement No acute medical issues Resolved issues during hospitalization: - Sepsis d/t PNA, resolved. BCx negative, MRSA swab negative, given vanco + pip-shayne 03/01-03/04, finished ABX course with cefuroxime + azithro 03/04-03/08 for total of 7d - Metabolic encephalopathy d/t above, resolved, back to baseline cognitive impairment. - Abdominal pain-- resolved - Sore throat- resolved, strep A, covid/flu/rsv--negative - 5 cm epididymal cyst on R scrotum, per Urology no intervention or further workup needed - Alzheimer's dementia without behavioral disturbance, continue fluoxetine, donepezil, memantine, prn olanzapine - Knee pain--likely osteoarthritis resolved, tramadol PRN need for inpatient: awaiting placement CBC/ BMP, last checked 04/06 were stable, weekly to twice monthly labs, unless new cinical change ambulate in [place], encourage staff to walk several times a day Monitor with camera Psychiatry will not take pt back stating that no further inpt psychiatric care is necessary so now he becomes a pending LTC placement VTE ppx LMWH Quality Stroke Does the patient have a stroke diagnosis?: No VTE Prior VTE?: No VTE Risk Level:: Medical - moderate - high VTE Device Contraindication: Treatment Not Indicated VTE Drug Contraindication: N/A - Med Ordered
[2024-04-16 15:06] VITALS: BP 104/64; PULSE 72; RESP 18; TEMP 36.4; O2SAT 95
[2024-04-16 19:37] VITALS: BP 109/59; PULSE 54; RESP 18; TEMP 36.6; O2SAT 94
[2024-04-16] MEDS: Enoxaparin Sodium 40 MG/0.4 ML SYRINGE SUBCUT (20:31)
[2024-04-16] MEDS: Donepezil HCl 10 MG TABLET PO (20:31)
[2024-04-17 03:15] VITALS: BP 97/53; PULSE 69; RESP 16; TEMP 36; O2SAT 95
[2024-04-17 07:13] VITALS: BP 110/67; PULSE 61; RESP 16; TEMP 36.7; O2SAT 93
[2024-04-17] MEDS: FLUoxetine HCl 20 MG CAPSULE PO (08:09)
[2024-04-17] MEDS: Folic Acid 1 MG TABLET PO (08:09)
[2024-04-17] MEDS: Memantine HCl 10 MG TABLET PO ×2 (08:09→21:00)
--- NOTE | 2024-04-17 08:11 | PC.NURSE ---
Pt is pleasant, alert and oriented to self, place, and time. Took morning medications whole with water. Pt denies pain at this time. Rings appropriately. Sitting up for breakfast. Needs met at this time.
--- NOTE | 2024-04-17 09:39 | HO.PM.IMPN ---
Subjective Subjective Date of Service: 04/17/24 Interval History: seen and evaluated this morning comfortable in his bed tolerating diet Review of Systems Review of Systems: Yes all other systems are reviewed and are negative Physical Exam Vital Signs: Vital Signs: Last Vital Signs Temp 98.0 F 04/17/24 07:13 Pulse 61 04/17/24 07:13 Resp 16 04/17/24 07:13 BP 110/67 04/17/24 07:13 Pulse Ox 93 04/17/24 07:13 O2 Del Method Room Air 04/17/24 07:13 BMI result Body Mass Index 18.4 Const: Other: Constitutional : Awake, interactive, not in distress Neck : Normal inspection, Supple Cardiovascular : RRR, no JVP, no lower extremity edema Respiratory : bilateral air entry, no crackles , no wheezes or rhonchi Gastrointestinal: soft, lax, Normal bowel sounds, Non tender Skin : Warm, Dry Neurological : Alert & oriented x1, No focal deficit Objective Data Active Medications Acetaminophen (Acetaminophen 325 Mg Tablet) 650 mg PO Q6H PRN PRN Reason: Headache/Pain Mild Scale (1-3) Last Admin: 03/27/24 08:24 Dose: 650 mg Documented By: JASWINDER Al Hydroxide/Mg Hydroxide (Magnesium Hydrox/Alum Hydrox 30 Ml Oral.Susp) 30 ml PO Q6H PRN PRN Reason: Heartburn/Nausea Donepezil HCl (Donepezil Hcl 10 Mg Tablet) 10 mg PO BEDTIME [facility] Last Admin: 04/16/24 20:31 Dose: 10 mg Documented By: JACQUI Enoxaparin Sodium (Enoxaparin Sodium 40 Mg/0.4 Ml Syringe) 40 mg SUBCUT Q24H [facility] Last Admin: 04/16/24 20:31 Dose: 40 mg Documented By: JACQUI Fluoxetine HCl (Fluoxetine Hcl 20 Mg Capsule) 20 mg PO DAILY [facility] Last Admin: 04/17/24 08:09 Dose: 20 mg Documented By: MANDA Folic Acid (Folic Acid 1 Mg Tablet) 1 mg PO DAILY [facility] Last Admin: 04/17/24 08:09 Dose: 1 mg Documented By: MANDA Magnesium Hydroxide (Milk Of Magnesia 30 Ml Oral.Susp) 30 ml PO DAILY PRN PRN Reason: Constipation Memantine (Memantine Hcl 10 Mg Tablet) 10 mg PO BID [facility] Last Admin: 04/17/24 08:09 Dose: 10 mg Documented By: MANDA Olanzapine (Olanzapine 2.5 Mg Tablet) 2.5 mg PO TID PRN PRN Reason: agitation Ondansetron HCl (Ondansetron Hcl 4 Mg/2 Ml Vial) 4 mg IVPUSH Q8H PRN PRN Reason: Nausea and Vomiting Simethicone (Simethicone 80 Mg Tab.Chew) 80 mg PO QIDWMHS PRN PRN Reason: Gas Last Admin: 03/20/24 22:30 Dose: 80 mg Documented By: YULIET Labs 04/13/24 12:09 04/13/24 12:09 Assessment and Plan (1) Dementia: Status: Acute Plan 79yo M with Alzheimer's dementia + behavioral admitted to telemetry from for AMS, found to have sepsis from multifocal PNA pt on hospitalist service since 03/01/24 pt originally admitted to [facility] 01/02/24 but then sent to for sexual inappropriateness. 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 BCx negative, MRSA swab negative, given vanco + pip-shayne 03/01-03/04, finished ABX course with cefuroxime + azithro 03/04-03/08 for total of 7d - Metabolic encephalopathy d/t above, resolved, back to baseline cognitive impairment. - Abdominal pain-- resolved - Sore throat- resolved, strep A, covid/flu/rsv--negative - 5 cm epididymal cyst on R scrotum, per Urology no intervention or further workup needed - Alzheimer's dementia without behavioral disturbance, continue fluoxetine, donepezil, memantine, prn olanzapine - Knee pain--likely osteoarthritis resolved, tramadol PRN need for inpatient: awaiting placement CBC/ BMP, last checked 04/06 were stable, weekly to twice monthly labs, unless new cinical change ambulate in [place], encourage staff to walk several times a day Monitor with camera Psychiatry will not take pt back stating that no further inpt psychiatric care is necessary so now he becomes a pending LTC placement VTE ppx LMWH Quality Stroke Does the patient have a stroke diagnosis?: No VTE Prior VTE?: No VTE Risk Level:: Medical - moderate - high VTE Device Contraindication: Treatment Not Indicated VTE Drug Contraindication: N/A - Med Ordered
[2024-04-17 15:24] VITALS: BP 107/61; PULSE 81; RESP 18; TEMP 36.5; O2SAT 95
[2024-04-17 19:50] VITALS: BP 126/62; PULSE 67; RESP 16; TEMP 36.5; O2SAT 95
[2024-04-17] MEDS: Enoxaparin Sodium 40 MG/0.4 ML SYRINGE SUBCUT (21:00)
[2024-04-17] MEDS: Donepezil HCl 10 MG TABLET PO (21:00)
[2024-04-18 04:00] VITALS: BP 99/69; PULSE 70; RESP 16; TEMP 36.3; O2SAT 93
[2024-04-18] MEDS: FLUoxetine HCl 20 MG CAPSULE PO (07:45)
[2024-04-18] MEDS: Memantine HCl 10 MG TABLET PO ×2 (07:45→20:56)
[2024-04-18] MEDS: Folic Acid 1 MG TABLET PO (07:45)
[2024-04-18 07:52] VITALS: BP 108/63; PULSE 56; RESP 18; TEMP 36.5; O2SAT 94
--- NOTE | 2024-04-18 11:36 | HO.PM.IMPN ---
Subjective Subjective Date of Service: 04/18/24 Interval History: seen and evaluated this morning comfortable in his chair tolerating diet Review of Systems Review of Systems: Yes all other systems are reviewed and are negative Physical Exam Vital Signs: Vital Signs: Last Vital Signs Temp 97.7 F 04/18/24 07:52 Pulse 56 04/18/24 07:52 Resp 18 04/18/24 07:52 BP 108/63 04/18/24 07:52 Pulse Ox 94 04/18/24 07:52 O2 Del Method Room Air 04/18/24 07:52 BMI result Body Mass Index 18.4 Const: Other: Constitutional : Awake, interactive, not in distress Neck : Normal inspection, Supple Cardiovascular : RRR, no JVP, no lower extremity edema Respiratory : bilateral air entry, no crackles , no wheezes or rhonchi Gastrointestinal: soft, lax, Normal bowel sounds, Non tender Skin : Warm, Dry Neurological : Alert & oriented x1, No focal deficit Objective Data Active Medications Acetaminophen (Acetaminophen 325 Mg Tablet) 650 mg PO Q6H PRN PRN Reason: Headache/Pain Mild Scale (1-3) Last Admin: 03/27/24 08:24 Dose: 650 mg Documented By: JASWINDER Al Hydroxide/Mg Hydroxide (Magnesium Hydrox/Alum Hydrox 30 Ml Oral.Susp) 30 ml PO Q6H PRN PRN Reason: Heartburn/Nausea Donepezil HCl (Donepezil Hcl 10 Mg Tablet) 10 mg PO BEDTIME [facility] Last Admin: 04/17/24 21:00 Dose: 10 mg Documented By: JACQUI Enoxaparin Sodium (Enoxaparin Sodium 40 Mg/0.4 Ml Syringe) 40 mg SUBCUT Q24H [facility] Last Admin: 04/17/24 21:00 Dose: 40 mg Documented By: JACQUI Fluoxetine HCl (Fluoxetine Hcl 20 Mg Capsule) 20 mg PO DAILY [facility] Last Admin: 04/18/24 07:45 Dose: 20 mg Documented By: JANEY Folic Acid (Folic Acid 1 Mg Tablet) 1 mg PO DAILY [facility] Last Admin: 04/18/24 07:45 Dose: 1 mg Documented By: JANEY Magnesium Hydroxide (Milk Of Magnesia 30 Ml Oral.Susp) 30 ml PO DAILY PRN PRN Reason: Constipation Memantine (Memantine Hcl 10 Mg Tablet) 10 mg PO BID [facility] Last Admin: 04/18/24 07:45 Dose: 10 mg Documented By: JANEY Olanzapine (Olanzapine 2.5 Mg Tablet) 2.5 mg PO TID PRN PRN Reason: agitation Ondansetron HCl (Ondansetron Hcl 4 Mg/2 Ml Vial) 4 mg IVPUSH Q8H PRN PRN Reason: Nausea and Vomiting Simethicone (Simethicone 80 Mg Tab.Chew) 80 mg PO QIDWMHS PRN PRN Reason: Gas Last Admin: 03/20/24 22:30 Dose: 80 mg Documented By: YULIET Labs 04/13/24 12:09 04/13/24 12:09 Assessment and Plan (1) Dementia: Status: Acute Plan 79yo M with Alzheimer's dementia + behavioral admitted to telemetry from for AMS, found to have sepsis from multifocal PNA pt on hospitalist service since 03/01/24 pt originally admitted to [facility] 01/02/24 but then sent to for sexual inappropriateness. 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 BCx negative, MRSA swab negative, given vanco + pip-shayne 03/01-03/04, finished ABX course with cefuroxime + azithro 03/04-03/08 for total of 7d - Metabolic encephalopathy d/t above, resolved, back to baseline cognitive impairment. - Abdominal pain-- resolved - Sore throat- resolved, strep A, covid/flu/rsv--negative - 5 cm epididymal cyst on R scrotum, per Urology no intervention or further workup needed - Alzheimer's dementia without behavioral disturbance, continue fluoxetine, donepezil, memantine, prn olanzapine - Knee pain--likely osteoarthritis resolved, tramadol PRN need for inpatient: awaiting placement CBC/ BMP, last checked 04/06 were stable, weekly to twice monthly labs, unless new cinical change ambulate in [place], encourage staff to walk several times a day Monitor with camera Psychiatry will not take pt back stating that no further inpt psychiatric care is necessary so now he becomes a pending LTC placement VTE ppx LMWH Quality Stroke Does the patient have a stroke diagnosis?: No VTE Prior VTE?: No VTE Risk Level:: Medical - moderate - high VTE Device Contraindication: Treatment Not Indicated VTE Drug Contraindication: N/A - Med Ordered
--- NOTE | 2024-04-18 13:17 | MHC.CM.PN ---
Patient continues to await LTC. No bed offers at this time. CM attempted to call HCP, no answer. Will continue to follow.
[2024-04-18 15:36] VITALS: BP 101/58; PULSE 77; RESP 18; TEMP 36.6; O2SAT 96
[2024-04-18 19:35] VITALS: BP 100/68; PULSE 59; RESP 20; TEMP 36.5; O2SAT 95
[2024-04-18] MEDS: Donepezil HCl 10 MG TABLET PO (20:56)
[2024-04-18] MEDS: Enoxaparin Sodium 40 MG/0.4 ML SYRINGE SUBCUT (20:57)
[2024-04-19 03:50] VITALS: BP 108/59; PULSE 61; RESP 16; TEMP 36.3; O2SAT 94
[2024-04-19 07:26] VITALS: BP 108/63; PULSE 63; RESP 18; TEMP 36; O2SAT 94
[2024-04-19] MEDS: Folic Acid 1 MG TABLET PO (08:21)
[2024-04-19] MEDS: FLUoxetine HCl 20 MG CAPSULE PO (08:22)
[2024-04-19] MEDS: Memantine HCl 10 MG TABLET PO ×2 (08:22→20:41)
--- NOTE | 2024-04-19 09:34 | PC.NURSE ---
pt alert , pt took all meds as directed , pt cooperative with assessment , pt watching [employer] which is [place] where he comes from , pt excited watching them preform and talking about where he is from . no issues
--- NOTE | 2024-04-19 12:45 | P.PNIM_ITS ---
Subjective Subjective Date of Service: 04/19/24 Interval History: seen and evaluated this morning comfortable in his chair tolerating diet Review of Systems Review of Systems: Yes all other systems are reviewed and are negative Physical Exam 2 Vital Signs: Vital Signs: Last Vital Signs Temp 96.8 F 04/19/24 07:26 Pulse 63 04/19/24 07:26 Resp 18 04/19/24 07:26 BP 108/63 04/19/24 07:26 Pulse Ox 94 04/19/24 07:26 O2 Del Method Room Air 04/19/24 07:26 BMI result Body Mass Index 18.4 Const: Other: Constitutional : Awake, interactive, not in distress Neck : Normal inspection, Supple Cardiovascular : RRR, no JVP, no lower extremity edema Respiratory : bilateral air entry, no crackles , no wheezes or rhonchi Gastrointestinal: soft, lax, Normal bowel sounds, Non tender Skin : Warm, Dry Neurological : Alert & oriented x1, No focal deficit Objective Data Active Medications Acetaminophen (Acetaminophen 325 Mg Tablet) 650 mg PO Q6H PRN PRN Reason: Headache/Pain Mild Scale (1-3) Last Admin: 03/27/24 08:24 Dose: 650 mg Documented By: JASWINDER Al Hydroxide/Mg Hydroxide (Magnesium Hydrox/Alum Hydrox 30 Ml Oral.Susp) 30 ml PO Q6H PRN PRN Reason: Heartburn/Nausea Donepezil HCl (Donepezil Hcl 10 Mg Tablet) 10 mg PO BEDTIME [facility] Last Admin: 04/18/24 20:56 Dose: 10 mg Documented By: ROSI Enoxaparin Sodium (Enoxaparin Sodium 40 Mg/0.4 Ml Syringe) 40 mg SUBCUT Q24H [facility] Last Admin: 04/18/24 20:57 Dose: 40 mg Documented By: ROSI Fluoxetine HCl (Fluoxetine Hcl 20 Mg Capsule) 20 mg PO DAILY [facility] Last Admin: 04/19/24 08:22 Dose: 20 mg Documented By: JOSEF Folic Acid (Folic Acid 1 Mg Tablet) 1 mg PO DAILY [facility] Last Admin: 04/19/24 08:21 Dose: 1 mg Documented By: JOSEF Magnesium Hydroxide (Milk Of Magnesia 30 Ml Oral.Susp) 30 ml PO DAILY PRN PRN Reason: Constipation Memantine (Memantine Hcl 10 Mg Tablet) 10 mg PO BID [facility] Last Admin: 04/19/24 08:22 Dose: 10 mg Documented By: JOSEF Olanzapine (Olanzapine 2.5 Mg Tablet) 2.5 mg PO TID PRN PRN Reason: agitation Ondansetron HCl (Ondansetron Hcl 4 Mg/2 Ml Vial) 4 mg IVPUSH Q8H PRN PRN Reason: Nausea and Vomiting Simethicone (Simethicone 80 Mg Tab.Chew) 80 mg PO QIDWMHS PRN PRN Reason: Gas Last Admin: 03/20/24 22:30 Dose: 80 mg Documented By: YULIET Labs 04/13/24 12:09 04/13/24 12:09 Assessment and Plan (1) Dementia: Status: Acute Plan 79yo M with Alzheimer's dementia + behavioral admitted to telemetry from for AMS, found to have sepsis from multifocal PNA pt on hospitalist service since 03/01/24 [facility] then [facility] to for sexual inappropriateness. 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 BCx negative, MRSA swab negative, given vanco + pip-shayne 03/01-03/04, finished ABX course with cefuroxime + azithro 03/04-03/08 for total of 7d - Metabolic encephalopathy d/t above, resolved, back to baseline cognitive impairment. - Abdominal pain-- resolved - Sore throat- resolved, strep A, covid/flu/rsv--negative - 5 cm epididymal cyst on R scrotum, per Urology no intervention or further workup needed - Alzheimer's dementia without behavioral disturbance, continue fluoxetine, donepezil, memantine, prn olanzapine - Knee pain--likely osteoarthritis resolved, tramadol PRN need for inpatient: awaiting placement CBC/ BMP, last checked 04/06 were stable, weekly to twice monthly labs, unless new cinical change ambulate in [place], encourage staff to walk several times a day Monitor with camera Psychiatry will not take pt back stating that no further inpt psychiatric care is necessary so now he becomes a pending LTC placement VTE ppx LMWH Quality Stroke Does the patient have a stroke diagnosis?: No VTE Prior VTE?: No VTE Risk Level:: Medical - moderate - high VTE Device Contraindication: Treatment Not Indicated VTE Drug Contraindication: N/A - Med Ordered
[2024-04-19 15:19] VITALS: BP 114/66; PULSE 64; RESP 20; TEMP 36.8; O2SAT 95
[2024-04-19 19:20] VITALS: BP 102/57; PULSE 66; RESP 20; TEMP 36.6; O2SAT 94
[2024-04-19] MEDS: Donepezil HCl 10 MG TABLET PO (20:41)
[2024-04-19] MEDS: Enoxaparin Sodium 40 MG/0.4 ML SYRINGE SUBCUT (21:16)
[2024-04-20 03:27] VITALS: BP 125/76; PULSE 81; RESP 18; TEMP 36.6; O2SAT 95
[2024-04-20] MEDS: Memantine HCl 10 MG TABLET PO ×2 (07:15→20:14)
[2024-04-20] MEDS: Folic Acid 1 MG TABLET PO (07:15)
[2024-04-20] MEDS: FLUoxetine HCl 20 MG CAPSULE PO (07:15)
[2024-04-20 07:20] VITALS: BP 109/63; PULSE 61; RESP 18; TEMP 36.2; O2SAT 92
--- NOTE | 2024-04-20 10:51 | PC.NURSE ---
pt a&ox3, on RA, calm and cooperative, no c/o of pain/discomfort; good appetite, OOB for meals,pleasant; independent, up to toilet.
--- NOTE | 2024-04-20 11:03 | HO.PM.IMPN ---
Subjective Subjective Date of Service: 04/20/24 Interval History: seen and evaluated this morning laying comfortable in his bed no reported events Review of Systems Review of Systems: Yes all other systems are reviewed and are negative Physical Exam Vital Signs: Vital Signs: Last Vital Signs Temp 97.2 F 04/20/24 07:20 Pulse 61 04/20/24 07:20 Resp 18 04/20/24 07:20 BP 109/63 04/20/24 07:20 Pulse Ox 92 04/20/24 07:20 O2 Del Method Room Air 04/20/24 07:20 BMI result Body Mass Index 18.4 Const: Other: Constitutional : interactive, not in distress Cardiovascular : no lower extremity edema Respiratory : bilateral chest movement, not in resp distress Gastrointestinal: soft, lax Skin : Warm, Dry Neurological : Alert & oriented to self and place, No focal deficit Objective Data Active Medications Acetaminophen (Acetaminophen 325 Mg Tablet) 650 mg PO Q6H PRN PRN Reason: Headache/Pain Mild Scale (1-3) Last Admin: 03/27/24 08:24 Dose: 650 mg Documented By: JASWINDER Al Hydroxide/Mg Hydroxide (Magnesium Hydrox/Alum Hydrox 30 Ml Oral.Susp) 30 ml PO Q6H PRN PRN Reason: Heartburn/Nausea Donepezil HCl (Donepezil Hcl 10 Mg Tablet) 10 mg PO BEDTIME [facility] Last Admin: 04/19/24 20:41 Dose: 10 mg Documented By: TYSHAWN Enoxaparin Sodium (Enoxaparin Sodium 40 Mg/0.4 Ml Syringe) 40 mg SUBCUT Q24H [facility] Last Admin: 04/19/24 21:16 Dose: 40 mg Documented By: TYSHAWN Fluoxetine HCl (Fluoxetine Hcl 20 Mg Capsule) 20 mg PO DAILY [facility] Last Admin: 04/20/24 07:15 Dose: 20 mg Documented By: PARDEEP Folic Acid (Folic Acid 1 Mg Tablet) 1 mg PO DAILY [facility] Last Admin: 04/20/24 07:15 Dose: 1 mg Documented By: PARDEEP Magnesium Hydroxide (Milk Of Magnesia 30 Ml Oral.Susp) 30 ml PO DAILY PRN PRN Reason: Constipation Memantine (Memantine Hcl 10 Mg Tablet) 10 mg PO BID [facility] Last Admin: 04/20/24 07:15 Dose: 10 mg Documented By: PARDEEP Olanzapine (Olanzapine 2.5 Mg Tablet) 2.5 mg PO TID PRN PRN Reason: agitation Ondansetron HCl (Ondansetron Hcl 4 Mg/2 Ml Vial) 4 mg IVPUSH Q8H PRN PRN Reason: Nausea and Vomiting Simethicone (Simethicone 80 Mg Tab.Chew) 80 mg PO QIDWMHS PRN PRN Reason: Gas Last Admin: 03/20/24 22:30 Dose: 80 mg Documented By: YULIET Labs 04/13/24 12:09 04/13/24 12:09 Assessment and Plan (1) Dementia: Status: Acute Plan 79yo M with Alzheimer's dementia + behavioral admitted to telemetry from for AMS, found to have sepsis from multifocal PNA pt on hospitalist service since 03/01/24 pt originally admitted to [facility] 01/02/24 but then sent to for sexual inappropriateness. 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 BCx negative, MRSA swab negative, given vanco + pip-shayne 03/01-03/04, finished ABX course with cefuroxime + azithro 03/04-03/08 for total of 7d - Metabolic encephalopathy d/t above, resolved, back to baseline cognitive impairment. - Abdominal pain-- resolved - Sore throat- resolved, strep A, covid/flu/rsv--negative - 5 cm epididymal cyst on R scrotum, per Urology no intervention or further workup needed - Alzheimer's dementia without behavioral disturbance, continue fluoxetine, donepezil, memantine, prn olanzapine - Knee pain--likely osteoarthritis resolved, tramadol PRN need for inpatient: awaiting placement CBC/ BMP, last checked 04/06 were stable, weekly to twice monthly labs, unless new cinical change ambulate in peres, encourage staff to walk several times a day Monitor with camera Psychiatry will not take pt back stating that no further inpt psychiatric care is necessary so now he becomes a pending LTC placement VTE ppx LMWH Quality Stroke Does the patient have a stroke diagnosis?: No VTE Prior VTE?: No VTE Risk Level:: Medical - moderate - high VTE Device Contraindication: Treatment Not Indicated VTE Drug Contraindication: N/A - Med Ordered
--- NOTE | 2024-04-20 13:01 | MHC.CM.PN ---
Patient continues to await safe dc plan LTC vs RESIDENTIAL. No behaviors notes, but no bed offers for LTC at this time. Reviewed w/ HCP Olga. Discussed potential plan for Olga to take patient home, as patient is ambulatory and w/o behaviors. Olga not agreeable to this plan and does not feel she can manage patient's care safely. Olga continues to work on clearing out patient's house (reports there was a hoarding issue) in preparation for selling to pay for RESIDENTIAL. CM spoke w/ Sy Daily in admissions @ [facility]. They are still able to take patient on 04/29, but need medical documentation, financial information (including proof of home being listed for sale), and their nurse needs to complete in person screening. This CM faxed over medical documentation. Olga to call w/ jose. Sy will call this CM to schedule screening. Sy Daily: phone [phone], fax [phone]
[2024-04-20 15:08] VITALS: BP 100/62; PULSE 69; RESP 18; TEMP 36.6; O2SAT 94
[2024-04-20 19:27] VITALS: BP 110/67; PULSE 74; RESP 18; TEMP 37.1; O2SAT 94
[2024-04-20] MEDS: Donepezil HCl 10 MG TABLET PO (20:14)
[2024-04-20] MEDS: Enoxaparin Sodium 40 MG/0.4 ML SYRINGE SUBCUT (20:15)
[2024-04-21 04:00] VITALS: BP 115/64; PULSE 66; RESP 18; TEMP 36.8; O2SAT 95
[2024-04-21] MEDS: FLUoxetine HCl 20 MG CAPSULE PO (07:43)
[2024-04-21] MEDS: Folic Acid 1 MG TABLET PO (07:44)
[2024-04-21] MEDS: Memantine HCl 10 MG TABLET PO ×2 (07:44→20:50)
[2024-04-21 07:54] VITALS: BP 109/62; PULSE 72; RESP 18; TEMP 36.7; O2SAT 92
--- NOTE | 2024-04-21 09:37 | P.PNIM_ITS ---
Subjective Subjective Date of Service: 04/21/24 Interval History: seen and evaluated this morning Offers no new complaint, vitals stable Review of Systems Review of Systems: Yes all other systems are reviewed and are negative Physical Exam 2 Vital Signs: Vital Signs: Last Vital Signs Temp 98.0 F 04/21/24 07:54 Pulse 72 04/21/24 07:54 Resp 18 04/21/24 07:54 BP 109/62 04/21/24 07:54 Pulse Ox 92 04/21/24 07:54 O2 Del Method Room Air 04/21/24 07:54 BMI result Body Mass Index 18.4 Objective Data Active Medications Acetaminophen (Acetaminophen 325 Mg Tablet) 650 mg PO Q6H PRN PRN Reason: Headache/Pain Mild Scale (1-3) Last Admin: 03/27/24 08:24 Dose: 650 mg Documented By: JASWINDER Al Hydroxide/Mg Hydroxide (Magnesium Hydrox/Alum Hydrox 30 Ml Oral.Susp) 30 ml PO Q6H PRN PRN Reason: Heartburn/Nausea Donepezil HCl (Donepezil Hcl 10 Mg Tablet) 10 mg PO BEDTIME [facility] Last Admin: 04/20/24 20:14 Dose: 10 mg Documented By: JACQUI Enoxaparin Sodium (Enoxaparin Sodium 40 Mg/0.4 Ml Syringe) 40 mg SUBCUT Q24H [facility] Last Admin: 04/20/24 20:15 Dose: 40 mg Documented By: JACQUI Fluoxetine HCl (Fluoxetine Hcl 20 Mg Capsule) 20 mg PO DAILY [facility] Last Admin: 04/21/24 07:43 Dose: 20 mg Documented By: PARDEEP Folic Acid (Folic Acid 1 Mg Tablet) 1 mg PO DAILY [facility] Last Admin: 04/21/24 07:44 Dose: 1 mg Documented By: PARDEEP Magnesium Hydroxide (Milk Of Magnesia 30 Ml Oral.Susp) 30 ml PO DAILY PRN PRN Reason: Constipation Memantine (Memantine Hcl 10 Mg Tablet) 10 mg PO BID [facility] Last Admin: 04/21/24 07:44 Dose: 10 mg Documented By: PARDEEP Olanzapine (Olanzapine 2.5 Mg Tablet) 2.5 mg PO TID PRN PRN Reason: agitation Ondansetron HCl (Ondansetron Hcl 4 Mg/2 Ml Vial) 4 mg IVPUSH Q8H PRN PRN Reason: Nausea and Vomiting Simethicone (Simethicone 80 Mg Tab.Chew) 80 mg PO QIDWMHS PRN PRN Reason: Gas Last Admin: 03/20/24 22:30 Dose: 80 mg Documented By: YULIET Labs 04/13/24 12:09 04/13/24 12:09 Assessment and Plan (1) Dementia: Status: Acute Plan 79yo M with Alzheimer's dementia + behavioral admitted to telemetry from for AMS, found to have sepsis from multifocal PNApt on hospitalist service since 03/01/24 pt originally admitted to [facility] 01/02/24 but then sent to for sexual inappropriateness. 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 BCx negative, MRSA swab negative, given vanco + pip-shayne 03/01-03/04, finished ABX course with cefuroxime + azithro 03/04-03/08 for total of 7d - Metabolic encephalopathy d/t above, resolved, back to baseline cognitive impairment. - Abdominal pain-- resolved - Sore throat- resolved, strep A, covid/flu/rsv--negative - 5 cm epididymal cyst on R scrotum, per Urology no intervention or further workup needed - Alzheimer's dementia without behavioral disturbance, continue fluoxetine, donepezil, memantine, prn olanzapine - Knee pain--likely osteoarthritis resolved, tramadol PRN need for inpatient: awaiting placement CBC/ BMP, last checked 04/13 were stable, weekly to twice monthly labs, unless new clinical change ambulate in peres, encourage staff to walk several times a day Monitor with camera Awaiting residential placement VTE ppx LMWH Quality Stroke Does the patient have a stroke diagnosis?: No VTE Prior VTE?: No VTE Risk Level:: Medical - moderate - high VTE Device Contraindication: Treatment Not Indicated VTE Drug Contraindication: N/A - Med Ordered
--- NOTE | 2024-04-21 13:34 | MHC.CM.PN ---
Addendum entered by Suzy Nieto RN 04/21/24 14:55: Yuliana applied to [facility]. Per their sales service coordinator, Cinda, they can take patient as early as 04/25 or 04/26. Clinicals sent to Cinda per Yuliana's request. Cinda will schedule intake assessment for 04/[address] [facility]. Will call back with time. MINERVA toth. Cinda @ [facility] - phone [phone], fax [phone] Addendum entered by Suzy Nieto RN 04/21/24 13:45: Rec'd call back from Yuliana, who will follow up w/ [facility] and apply @ [facility]. CM also LM for son/primary HCP to discuss situation. Original Note: T/W called [facility] to follow up. Per Sy in admissions, they are unable to accept patient and suggested this CM further discuss w/ account executive. LM and awaiting response. Attempted to call Yuliana/HCP to discuss, LM. [facility] referrals expanded and updated. No behavioral concerns at this time per RN. CM will continue to follow.
[2024-04-21 15:18] VITALS: BP 102/61; PULSE 64; RESP 18; TEMP 36.6; O2SAT 94
--- NOTE | 2024-04-21 17:02 | PC.NURSE ---
Pt is calm and cooperative, pleasant, participating in care. No c/o of pain. plan of care is ongoing.
[2024-04-21 19:33] VITALS: BP 102/66; PULSE 70; RESP 18; TEMP 36.5; O2SAT 94
[2024-04-21] MEDS: Donepezil HCl 10 MG TABLET PO (20:50)
[2024-04-21] MEDS: Enoxaparin Sodium 40 MG/0.4 ML SYRINGE SUBCUT (20:50)
[2024-04-22 03:36] VITALS: BP 122/64; PULSE 61; RESP 18; TEMP 36.4; O2SAT 94
[2024-04-22 07:24] VITALS: BP 114/64; PULSE 69; RESP 12; TEMP 36.6; O2SAT 94
[2024-04-22] MEDS: Folic Acid 1 MG TABLET PO (08:23)
[2024-04-22] MEDS: Memantine HCl 10 MG TABLET PO ×2 (08:23→19:42)
[2024-04-22] MEDS: FLUoxetine HCl 20 MG CAPSULE PO (08:23)
--- NOTE | 2024-04-22 12:21 | MHC.CLN ---
F/U PO INTAKE 75-100% DIET RX:REGULAR-APPROPRIATE PT RECEIVING ENSURE BID TO INCREASE CALORIC INTAKE PROVIDES 700 KCALS, 40 G PROTEIN MONITOR PO INTAKE AND ENCOURAGE SUPPLEMENT AWAITING SNF PLACEMENT
--- NOTE | 2024-04-22 13:13 | HO.PM.IMPN ---
Subjective Subjective Date of Service: 04/22/24 Interval History: Evaluated this morning, awake, alert and has no specific complaint, vitals stable. Physical Exam Vital Signs: Vital Signs: Last Vital Signs Temp 98 F 04/22/24 07:24 Pulse 69 04/22/24 07:24 Resp 12 04/22/24 07:24 BP 114/64 04/22/24 07:24 Pulse Ox 94 04/22/24 07:24 O2 Del Method Room Air 04/22/24 07:24 BMI result Body Mass Index 18.4 Const: Other: Constitutional : interactive, not in distress Cardiovascular : no lower extremity edema Respiratory : bilateral chest movement, not in resp distress Gastrointestinal: soft, lax Skin : Warm, Dry Neurological : Alert & oriented to self and place, No focal deficit Objective Data Active Medications Acetaminophen (Acetaminophen 325 Mg Tablet) 650 mg PO Q6H PRN PRN Reason: Headache/Pain Mild Scale (1-3) Last Admin: 03/27/24 08:24 Dose: 650 mg Documented By: JASWINDER Al Hydroxide/Mg Hydroxide (Magnesium Hydrox/Alum Hydrox 30 Ml Oral.Susp) 30 ml PO Q6H PRN PRN Reason: Heartburn/Nausea Donepezil HCl (Donepezil Hcl 10 Mg Tablet) 10 mg PO BEDTIME [facility] Last Admin: 04/21/24 20:50 Dose: 10 mg Documented By: JACQUI Enoxaparin Sodium (Enoxaparin Sodium 40 Mg/0.4 Ml Syringe) 40 mg SUBCUT Q24H [facility] Last Admin: 04/21/24 20:50 Dose: 40 mg Documented By: JACQUI Fluoxetine HCl (Fluoxetine Hcl 20 Mg Capsule) 20 mg PO DAILY [facility] Last Admin: 04/22/24 08:23 Dose: 20 mg Documented By: JEAN PAUL Folic Acid (Folic Acid 1 Mg Tablet) 1 mg PO DAILY [facility] Last Admin: 04/22/24 08:23 Dose: 1 mg Documented By: JEAN PAUL Magnesium Hydroxide (Milk Of Magnesia 30 Ml Oral.Susp) 30 ml PO DAILY PRN PRN Reason: Constipation Memantine (Memantine Hcl 10 Mg Tablet) 10 mg PO BID [facility] Last Admin: 04/22/24 08:23 Dose: 10 mg Documented By: JEAN PAUL Olanzapine (Olanzapine 2.5 Mg Tablet) 2.5 mg PO TID PRN PRN Reason: agitation Ondansetron HCl (Ondansetron Hcl 4 Mg/2 Ml Vial) 4 mg IVPUSH Q8H PRN PRN Reason: Nausea and Vomiting Simethicone (Simethicone 80 Mg Tab.Chew) 80 mg PO QIDWMHS PRN PRN Reason: Gas Last Admin: 03/20/24 22:30 Dose: 80 mg Documented By: YULIET Labs 04/13/24 12:09 04/13/24 12:09 Assessment and Plan (1) Dementia: Status: Acute Plan 79yo M with Alzheimer's dementia + behavioral admitted to telemetry from for AMS, found to have sepsis from multifocal PNApt on hospitalist service since 03/01/24 pt originally admitted to [facility] 01/02/24 but then sent to for sexual inappropriateness. Now awaiting [facility] No acute medical issues Resolved issues during hospitalization: - Sepsis d/t PNA, resolved. BCx negative, MRSA swab negative, given vanco + pip-shayne 03/01-03/04, finished ABX course with cefuroxime + azithro 03/04-03/08 for total of 7d - Metabolic encephalopathy d/t above, resolved, back to baseline cognitive impairment. - Abdominal pain-- resolved - Sore throat- resolved, strep A, covid/flu/rsv--negative - 5 cm epididymal cyst on R scrotum, per Urology no intervention or further workup needed - Alzheimer's dementia without behavioral disturbance, continue fluoxetine, donepezil, memantine, prn olanzapine - Knee pain--likely osteoarthritis resolved, tramadol PRN need for inpatient: awaiting placement CBC/ BMP, last checked 04/13 were stable, weekly to twice monthly labs, unless new clinical change ambulate in peres, encourage staff to walk several times a day Monitor with camera Awaiting nursing home placement VTE ppx LMWH Quality Stroke Does the patient have a stroke diagnosis?: No VTE Prior VTE?: No VTE Risk Level:: Medical - moderate - high VTE Device Contraindication: Treatment Not Indicated VTE Drug Contraindication: N/A - Med Ordered
--- NOTE | 2024-04-22 13:23 | PC.NURSE ---
Pt alert and pleasant. Pt compliant with medications/care. ambulating independently in room. no behavioral concerns w this RN
--- NOTE | 2024-04-22 14:13 | MHC.CM.PN ---
This CM called admissions liaison Cinda from the [facility] for an update. Per Cinda, they were able to meet with the pt this morning and have spoken to his spouse Olga and they would like to move forward with the plan of having him move to the [facility]. The [facility] has given Olga admission paperwork to complete including a consent form to complete in order for [facility] to complete/submit the MD clearance form. Cinda will fax the MD clearance form to CM office. Cinda will let CM know once she has the consent form from Olga. Per Cinda their goal is to complete paperwork by Wednesday 04/25 and obtain furniture for the patient, in order to admit him to their facility on Thursday 04/26.
[2024-04-22 15:56] VITALS: BP 123/70; PULSE 89; RESP 12; TEMP 36.1; O2SAT 94
[2024-04-22 19:39] VITALS: BP 95/57; PULSE 70; RESP 12; TEMP 36.8; O2SAT 93
[2024-04-22] MEDS: Donepezil HCl 10 MG TABLET PO (19:42)
[2024-04-22] MEDS: Enoxaparin Sodium 40 MG/0.4 ML SYRINGE SUBCUT (21:42)
[2024-04-23 03:58] VITALS: BP 121/68; PULSE 75; RESP 16; TEMP 36.3; O2SAT 93
[2024-04-23 07:54] VITALS: BP 113/55; PULSE 60; RESP 14; TEMP 36.3; O2SAT 93
[2024-04-23] MEDS: Memantine HCl 10 MG TABLET PO ×2 (08:30→21:13)
[2024-04-23] MEDS: Folic Acid 1 MG TABLET PO (08:30)
[2024-04-23] MEDS: FLUoxetine HCl 20 MG CAPSULE PO (08:30)
--- NOTE | 2024-04-23 10:30 | HO.PM.IMPN ---
Subjective Subjective Date of Service: 04/23/24 Interval History: Doing well, sitting by the window and eating his breakfast and has no complaint Physical Exam Vital Signs: Vital Signs: Last Vital Signs Temp 97.4 F 04/23/24 07:54 Pulse 60 04/23/24 07:54 Resp 14 04/23/24 07:54 BP 113/55 L 04/23/24 07:54 Pulse Ox 93 04/23/24 07:54 O2 Del Method Room Air 04/23/24 07:54 BMI result Body Mass Index 18.4 Const: Other: Constitutional : interactive, not in distress Cardiovascular : no lower extremity edema Respiratory : bilateral chest movement, not in resp distress Gastrointestinal: soft, lax Skin : Warm, Dry Neurological : Alert & oriented to self and place, No focal deficit Objective Data Active Medications Acetaminophen (Acetaminophen 325 Mg Tablet) 650 mg PO Q6H PRN PRN Reason: Headache/Pain Mild Scale (1-3) Last Admin: 03/27/24 08:24 Dose: 650 mg Documented By: JASWINDER Al Hydroxide/Mg Hydroxide (Magnesium Hydrox/Alum Hydrox 30 Ml Oral.Susp) 30 ml PO Q6H PRN PRN Reason: Heartburn/Nausea Donepezil HCl (Donepezil Hcl 10 Mg Tablet) 10 mg PO BEDTIME [facility] Last Admin: 04/22/24 19:42 Dose: 10 mg Documented By: SALVATORE Enoxaparin Sodium (Enoxaparin Sodium 40 Mg/0.4 Ml Syringe) 40 mg SUBCUT Q24H [facility] Last Admin: 04/22/24 21:42 Dose: 40 mg Documented By: SALVATORE Fluoxetine HCl (Fluoxetine Hcl 20 Mg Capsule) 20 mg PO DAILY [facility] Last Admin: 04/23/24 08:30 Dose: 20 mg Documented By: JEAN PAUL Folic Acid (Folic Acid 1 Mg Tablet) 1 mg PO DAILY [facility] Last Admin: 04/23/24 08:30 Dose: 1 mg Documented By: JEAN PAUL Magnesium Hydroxide (Milk Of Magnesia 30 Ml Oral.Susp) 30 ml PO DAILY PRN PRN Reason: Constipation Memantine (Memantine Hcl 10 Mg Tablet) 10 mg PO BID [facility] Last Admin: 04/23/24 08:30 Dose: 10 mg Documented By: JEAN PAUL Olanzapine (Olanzapine 2.5 Mg Tablet) 2.5 mg PO TID PRN PRN Reason: agitation Ondansetron HCl (Ondansetron Hcl 4 Mg/2 Ml Vial) 4 mg IVPUSH Q8H PRN PRN Reason: Nausea and Vomiting Simethicone (Simethicone 80 Mg Tab.Chew) 80 mg PO QIDWMHS PRN PRN Reason: Gas Last Admin: 03/20/24 22:30 Dose: 80 mg Documented By: YULIET Labs 04/13/24 12:09 04/13/24 12:09 Assessment and Plan (1) Dementia: Status: Acute Plan 79yo M with Alzheimer's dementia + behavioral admitted to telemetry from for AMS, found to have sepsis from multifocal PNApt on hospitalist service since 03/01/24 pt originally admitted to [facility] 01/02/24 but then sent to for sexual inappropriateness. Now awaiting correction placement No acute medical issues Resolved issues : - Sepsis d/t PNA, resolved. BCx negative, MRSA swab negative, given vanco + pip-shayne 03/01-03/04, finished ABX course with cefuroxime + azithro 03/04-03/08 for total of 7d - Metabolic encephalopathy d/t above, resolved, back to baseline cognitive impairment. - Abdominal pain-- resolved - Sore throat- resolved, strep A, covid/flu/rsv--negative - 5 cm epididymal cyst on R scrotum, per Urology no intervention or further workup needed - Alzheimer's dementia without behavioral disturbance, continue fluoxetine, donepezil, memantine, prn olanzapine - Knee pain--likely osteoarthritis resolved, tramadol PRN need for inpatient: awaiting placement CBC/ BMP, last checked 04/13 were stable, weekly to twice monthly labs, unless new clinical change ambulate in peres, encourage staff to walk several times a day Monitor with camera Awaiting nursing home placement VTE ppx LMWH Quality Stroke Does the patient have a stroke diagnosis?: No VTE Prior VTE?: No VTE Risk Level:: Medical - moderate - high VTE Device Contraindication: Treatment Not Indicated VTE Drug Contraindication: N/A - Med Ordered
[2024-04-23 15:30] VITALS: BP 107/65; PULSE 61; RESP 14; TEMP 36.3; O2SAT 95
[2024-04-23 19:41] VITALS: BP 122/64; PULSE 78; RESP 18; TEMP 36.4; O2SAT 95
[2024-04-23] MEDS: Donepezil HCl 10 MG TABLET PO (21:13)
[2024-04-23] MEDS: Enoxaparin Sodium 40 MG/0.4 ML SYRINGE SUBCUT (21:14)
[2024-04-24 03:28] VITALS: BP 120/60; PULSE 87; RESP 20; TEMP 36.3; O2SAT 94
[2024-04-24 07:44] VITALS: BP 107/76; PULSE 65; RESP 18; TEMP 36.2; O2SAT 94
[2024-04-24] MEDS: Memantine HCl 10 MG TABLET PO ×2 (08:04→20:51)
[2024-04-24] MEDS: FLUoxetine HCl 20 MG CAPSULE PO (08:04)
[2024-04-24] MEDS: Folic Acid 1 MG TABLET PO (08:04)
--- NOTE | 2024-04-24 09:56 | HO.PM.IMPN ---
Subjective Subjective Date of Service: 04/24/24 Interval History: Pt is awake, in bed, no distress, has no complaint, cooperative Physical Exam Vital Signs: Vital Signs: Last Vital Signs Temp 97.2 F 04/24/24 07:44 Pulse 65 04/24/24 07:44 Resp 18 04/24/24 07:44 BP 107/76 04/24/24 07:44 Pulse Ox 94 04/24/24 07:44 O2 Del Method Room Air 04/24/24 07:44 BMI result Body Mass Index 18.4 Const: Other: Constitutional : interactive, not in distress Cardiovascular : no lower extremity edema Respiratory : bilateral chest movement, not in resp distress Gastrointestinal: soft, lax Skin : Warm, Dry Neurological : Alert & oriented to self and place, No focal deficit Objective Data Active Medications Acetaminophen (Acetaminophen 325 Mg Tablet) 650 mg PO Q6H PRN PRN Reason: Headache/Pain Mild Scale (1-3) Last Admin: 03/27/24 08:24 Dose: 650 mg Documented By: JASWINDER Al Hydroxide/Mg Hydroxide (Magnesium Hydrox/Alum Hydrox 30 Ml Oral.Susp) 30 ml PO Q6H PRN PRN Reason: Heartburn/Nausea Donepezil HCl (Donepezil Hcl 10 Mg Tablet) 10 mg PO BEDTIME [facility] Last Admin: 04/23/24 21:13 Dose: 10 mg Documented By: KAI Enoxaparin Sodium (Enoxaparin Sodium 40 Mg/0.4 Ml Syringe) 40 mg SUBCUT Q24H [facility] Last Admin: 04/23/24 21:14 Dose: 40 mg Documented By: KAI Fluoxetine HCl (Fluoxetine Hcl 20 Mg Capsule) 20 mg PO DAILY [facility] Last Admin: 04/24/24 08:04 Dose: 20 mg Documented By: JEAN PAUL Folic Acid (Folic Acid 1 Mg Tablet) 1 mg PO DAILY [facility] Last Admin: 04/24/24 08:04 Dose: 1 mg Documented By: JEAN PAUL Magnesium Hydroxide (Milk Of Magnesia 30 Ml Oral.Susp) 30 ml PO DAILY PRN PRN Reason: Constipation Memantine (Memantine Hcl 10 Mg Tablet) 10 mg PO BID [facility] Last Admin: 04/24/24 08:04 Dose: 10 mg Documented By: JEAN PAUL Olanzapine (Olanzapine 2.5 Mg Tablet) 2.5 mg PO TID PRN PRN Reason: agitation Ondansetron HCl (Ondansetron Hcl 4 Mg/2 Ml Vial) 4 mg IVPUSH Q8H PRN PRN Reason: Nausea and Vomiting Simethicone (Simethicone 80 Mg Tab.Chew) 80 mg PO QIDWMHS PRN PRN Reason: Gas Last Admin: 03/20/24 22:30 Dose: 80 mg Documented By: YULIET Labs 04/13/24 12:09 04/13/24 12:09 Assessment and Plan (1) Dementia: Status: Acute Plan 79yo M with Alzheimer's dementia + behavioral admitted to telemetry from for AMS, found to have sepsis from multifocal PNApt on hospitalist service since 03/01/24 pt originally admitted to [facility] 01/02/24 but then sent to for sexual inappropriateness. Now awaiting fpc placement No acute medical issues Resolved issues : - Sepsis d/t PNA, resolved. BCx negative, MRSA swab negative, given vanco + pip-shayne 03/01-03/04, finished ABX course with cefuroxime + azithro 03/04-03/08 for total of 7d - Metabolic encephalopathy d/t above, resolved, back to baseline cognitive impairment. - Abdominal pain-- resolved - Sore throat- resolved, strep A, covid/flu/rsv--negative - 5 cm epididymal cyst on R scrotum, per Urology no intervention or further workup needed - Alzheimer's dementia without behavioral disturbance, continue fluoxetine, donepezil, memantine, prn olanzapine - Knee pain--likely osteoarthritis resolved, tramadol PRN need for inpatient: awaiting placement CBC/ BMP, last checked 04/13 were stable, weekly to twice monthly labs, unless new clinical change ambulate in peres, encourage staff to walk several times a day Monitor with camera Awaiting [facility] placement VTE ppx LMWH Quality Stroke Does the patient have a stroke diagnosis?: No VTE Prior VTE?: No VTE Risk Level:: Medical - moderate - high VTE Device Contraindication: Treatment Not Indicated VTE Drug Contraindication: N/A - Med Ordered
[2024-04-24 15:35] VITALS: BP 113/60; PULSE 80; RESP 14; TEMP 36.2; O2SAT 94
--- NOTE | 2024-04-24 17:03 | PC.NURSE ---
Pt alert and pleasant. Pt compliant with medications/care. ambulating independently in room. occasionally in peres. no behavioral concerns w this RN
[2024-04-24 20:00] VITALS: BP 107/59; PULSE 73; RESP 20; TEMP 36.6; O2SAT 94
[2024-04-24] MEDS: Enoxaparin Sodium 40 MG/0.4 ML SYRINGE SUBCUT (20:50)
[2024-04-24] MEDS: Donepezil HCl 10 MG TABLET PO (20:51)
[2024-04-25 00:09] VITALS: BP 120/75; PULSE 77; RESP 18; TEMP 36.3; O2SAT 92
[2024-04-25 07:22] LABS: Hematocrit 40.9 % (42.0-52.0); Hemoglobin 14.2 g/dl (14.0-18.0); Mean Corpuscular HGB Conc 34.7 g/dl (31.0-36.0); Mean Corpuscular Hemoglobin 32.6 pg (27.0-33.0); Mean Platelet Volume 11.1 fL (9.4-12.4); Platelet Count 210 X10*3/uL (160-400); Red Blood Count 4.35 X10*6/uL (4.60-5.80); Red Cell Distribution Width 13.5 % (11.0-16.0); White Blood Count 5.7 X10*3/uL (4.8-10.8)
[2024-04-25 07:26] VITALS: BP 123/68; PULSE 65; RESP 16; TEMP 36.2; O2SAT 97
[2024-04-25 07:42] LABS: Anion Gap 11 (12-20); Blood Urea Nitrogen 18 mg/dL (9-16); Calcium 8.9 mg/dL (8.4-10.2); Carbon Dioxide 27 mmol/L (22-29); Chloride 105 mmol/L (96-108); Creatinine Clr Calc Pharmacy 58.4; Estimated Glomerular Filt Rate > 60; Glucose Random 94 mg/dL (60-115); Potassium 4.1 mmol/L (3.3-5.1); Sodium 139 mmol/L (135-145)
[2024-04-25] MEDS: FLUoxetine HCl 20 MG CAPSULE PO (08:18)
[2024-04-25] MEDS: Folic Acid 1 MG TABLET PO (08:18)
[2024-04-25] MEDS: Memantine HCl 10 MG TABLET PO ×2 (08:18→20:09)
--- NOTE | 2024-04-25 11:08 | MHC.CLN ---
F/U PO INTAKE 25-100%, WITH MOST MEALS GREATER THAN 50%. DIET RX:REGULAR-APPROPRIATE. PT RECEIVING ENSURE BID TO INCREASE CALORIC INTAKE PROVIDES 700 KCALS, 40 G PROTEIN. MONITOR PO INTAKE AND ENCOURAGE SUPPLEMENT. AWAITING SNF PLACEMENT. RD TO FOLLOW WEEKLY.
--- NOTE | 2024-04-25 11:30 | HO.PM.IMPN ---
Subjective Subjective Date of Service: 04/25/24 Interval History: awake, alert, has no complaint, and no new concerns from nursing Physical Exam Vital Signs: Vital Signs: Last Vital Signs Temp 97.1 F 04/25/24 07:26 Pulse 65 04/25/24 07:26 Resp 16 04/25/24 07:26 BP 123/68 04/25/24 07:26 Pulse Ox 97 04/25/24 07:26 O2 Del Method Room Air 04/25/24 07:26 BMI result Body Mass Index 18.4 Const: Other: Constitutional : interactive, not in distress Cardiovascular : no lower extremity edema Respiratory : bilateral chest movement, not in resp distress Gastrointestinal: soft, lax Skin : Warm, Dry Neurological : Alert & oriented to self and place, No focal deficit Objective Data Active Medications Acetaminophen (Acetaminophen 325 Mg Tablet) 650 mg PO Q6H PRN PRN Reason: Headache/Pain Mild Scale (1-3) Last Admin: 03/27/24 08:24 Dose: 650 mg Documented By: JASWINDER Al Hydroxide/Mg Hydroxide (Magnesium Hydrox/Alum Hydrox 30 Ml Oral.Susp) 30 ml PO Q6H PRN PRN Reason: Heartburn/Nausea Donepezil HCl (Donepezil Hcl 10 Mg Tablet) 10 mg PO BEDTIME [facility] Last Admin: 04/24/24 20:51 Dose: 10 mg Documented By: KAI Enoxaparin Sodium (Enoxaparin Sodium 40 Mg/0.4 Ml Syringe) 40 mg SUBCUT Q24H [facility] Last Admin: 04/24/24 20:50 Dose: 40 mg Documented By: KAI Fluoxetine HCl (Fluoxetine Hcl 20 Mg Capsule) 20 mg PO DAILY [facility] Last Admin: 04/25/24 08:18 Dose: 20 mg Documented By: MANDA Folic Acid (Folic Acid 1 Mg Tablet) 1 mg PO DAILY [facility] Last Admin: 04/25/24 08:18 Dose: 1 mg Documented By: MANDA Magnesium Hydroxide (Milk Of Magnesia 30 Ml Oral.Susp) 30 ml PO DAILY PRN PRN Reason: Constipation Memantine (Memantine Hcl 10 Mg Tablet) 10 mg PO BID [facility] Last Admin: 04/25/24 08:18 Dose: 10 mg Documented By: MANDA Olanzapine (Olanzapine 2.5 Mg Tablet) 2.5 mg PO TID PRN PRN Reason: agitation Ondansetron HCl (Ondansetron Hcl 4 Mg/2 Ml Vial) 4 mg IVPUSH Q8H PRN PRN Reason: Nausea and Vomiting Simethicone (Simethicone 80 Mg Tab.Chew) 80 mg PO QIDWMHS PRN PRN Reason: Gas Last Admin: 03/20/24 22:30 Dose: 80 mg Documented By: YULIET Labs 04/25/24 06:12 04/25/24 06:12 Labs: Laboratory Results - last 24 hr 04/25/24 06:12 MCV 94.0 MCH 32.6 MCHC 34.7 RDW 13.5 Plt Count 210 MPV 11.1 Absolute Nucleated RBC 0.000 Nucleated RBC % (auto) 0.0 Anion Gap 11 L Estim Creat Clear Calc 58.4 Estimated GFR > 60 Random Glucose 94 Calcium 8.9 Assessment and Plan (1) Dementia: Status: Acute Plan 79yo M with Alzheimer's dementia + behavioral admitted to telemetry from for AMS, found to have sepsis from multifocal PNApt on hospitalist service since 03/01/24 pt originally admitted to [facility] 01/02/24 but then sent to for sexual inappropriateness. 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 BCx negative, MRSA swab negative, given vanco + pip-shayne 03/01-03/04, finished ABX course with cefuroxime + azithro 03/04-03/08 for total of 7d - Metabolic encephalopathy d/t above, resolved, back to baseline cognitive impairment. - Abdominal pain-- resolved - Sore throat- resolved, strep A, covid/flu/rsv--negative - 5 cm epididymal cyst on R scrotum, per Urology no intervention or further workup needed - Alzheimer's dementia without behavioral disturbance, continue fluoxetine, donepezil, memantine, prn olanzapine - Knee pain--likely osteoarthritis resolved, tramadol PRN need for inpatient: awaiting placement CBC/ BMP, last checked 04/25 were stable, weekly to twice monthly labs, unless new clinical change ambulate in peres, encourage staff to walk several times a day Monitor with camera Awaiting senior living placement, possibly to assisted living soon VTE ppx LMWH Quality Stroke Does the patient have a stroke diagnosis?: No VTE Prior VTE?: No VTE Risk Level:: Medical - moderate - high VTE Device Contraindication: Treatment Not Indicated VTE Drug Contraindication: N/A - Med Ordered
--- NOTE | 2024-04-25 11:33 | MHC.CM.PN ---
DARIUSZ SPOKE TO VARSHA FROM THE [facility], SHE REPORTS LONG THE FORMS SENT TO THE HOSPITALIST ARE RETURNED TODAY, THE PT WILL BE ABLE TO MOVE IN TOMORROW. SHE ALSO REQUESTED A REFERRAL TO A VNA FOR PT IN CASE THE PT HAS ISSUES IN HIS NEW ENVIRONMENT. REFERRAL SENT TO [facility] THE [facility] THEY USE MOST FREQUENTLY. SHE WILL CALL BACK THIS AFTERNOON TO CONFIRM WHETHER [facility] FOR ALL OF HIS MEDS SHOULD BE SENT, OR IF THEY CAN BE E-FAXED TO [facility]
--- NOTE | 2024-04-25 14:45 | MHC.CM.PN ---
Patient will DC to [facility] tomorrow morning at 11, scripts for med to be sent to [facility] in [place].
[2024-04-25 15:11] VITALS: BP 100/57; PULSE 75; RESP 20; TEMP 36.6; O2SAT 96
--- NOTE | 2024-04-25 15:30 | P.DS_ITS ---
DS: Providers Provider Date of Service: 04/26/24 Date of admission: 03/01/24 20:19 Date of discharge: 04/26/24 Primary care physician: COLTON LAMRA MD Consults: 03/01/24 21:05 Consult to Urology Routine Consulting Provider: Francisco Koch Reason for consultation: large epididymal cyst, ?epididymitis- unable to actually view epididymis 03/04/24 07:34 Consult to Care Team Routine Comment: Reason for consultation: Medically clear, for placement evaluation. DS: Diagnosis Discharge Diagnosis (1) Dementia: Status: Acute DS: Summary Hospital Course Hospital Course: admission hpi Chief Complaint: dizziness, confusion 79-year-old male with 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 admitted to med/tele from for evaluation of altered mental status. Per nursing report, the patient was reporting dizziness earlier this afternoon and has been in bed most of the day. Rapid response was called around 730 this evening as patient was found confused in the bathroom with his pants around his ankles which is atypical for the patient. He was requiring frequent prompting and cues to perform tasks. Stroke alert was called given concerns. Head CT was ordered which was negative for any acute intracranial abnormality. There are no focal nerve neuro deficits noted on exam so further imaging was not pursued as patient was also febrile to 100.1, tachycardic with elevated white blood cell count of 15. Chest x-ray performed on the unit with final radiology read pending but does appear to have right lower lobe infiltrate, question possible aspiration. Per unit staff, the patient has been sneezing and coughing. The patient himself has no complaints and was oriented to self and place on unit, sitting up in bed without any imbalance noted. Of note, he was also complaining of right scrotal/testicular discomfort 3 days ago and urinalysis was negative. Gonorrhea and chlamydia PCR was negative. Ultrasound of the scrotum revealed a 5 cm right-sided epididymal cyst largely obscuring visual of epididymis. He is being transferred to the medical floors for further evaluation and management of acute metabolic encephalopathy likely secondary to probable aspiration pneumonia with sepsis. Hospital course: The patient was admitted from inpatient Psychiatry unit on 2023 for management of sepsis due to multifocal pneumonia and acute metabolic encephalopathy. He was treated with Zosyn for 4 days and Cefuroxime and Azithro for 4 days for a total of 7 days of antibiotics. He has made a good recovery, sepsis and his respiratory status has been stable since. He also had a metabolic encephalopathy associated with the pneumonia and this also resolved. 5 cm epididymal cyst on Right scrotum, per Urology no intervention or further workup is needed Alzheimer's dementia without behavioral disturbance, continue fluoxetine, donepezil, memantine. He was prescribed Olanzapine PRN but never needed. Patient is very polite, calm and very cooperative during his stay. He has very good correction memory but diminished short term memory. He is able to feed himself, cloth himself, and staff gives him his meds. While there is report history of sexual inappropriateness, there has not been such report during his stay here. Osteoarthritis of the knee-Tyelenol PRN, doesn't affect his ambulation Time Attestation Discharge Coordination Time (in mins): 45 Quality: Safe Use of Opioids Does Pt have an Active Cancer Diagnosis on the Problem List?: No Quality: Stroke Does the patient have a stroke diagnosis?: No Physical Exam Vital Signs: Vital Signs: Selected Entries 04/26/24 07:56 Temperature 97.7 F Pulse Rate 66 Respiratory Rate 17 Blood Pressure 108/54 L Pulse Oximetry 94 Oxygen Delivery Me thod Room Air Const: Other: Constitutional : interactive, not in distress Cardiovascular : no lower extremity edema Respiratory : bilateral chest movement, not in resp distress Gastrointestinal: soft, lax Skin : Warm, Dry Neurological : Alert & oriented to self and place, No focal deficit , alert to self, place and Date DS: Data Data Completed and Pending Labs on day of discharge: Laboratory Results - last 24 hr 04/25/24 06:12 WBC 5.7 RBC 4.35 L Hgb 14.2 Hct 40.9 L MCV 94.0 MCH 32.6 MCHC 34.7 RDW 13.5 Plt Count 210 MPV 11.1 Absolute Nucleated RBC 0.000 Nucleated RBC % (auto) 0.0 Sodium 139 Potassium 4.1 Chloride 105 Carbon Dioxide 27 Anion Gap 11 L BUN 18 H Creatinine 0.87 Estim Creat Clear Calc 58.4 Estimated GFR > 60 Random Glucose 94 Calcium 8.9 Discharge Plan Discharge Anticipated Discharge Date/Time: 04/26/24 09:17 Patient Disposition: Home Health Service Discharge Diagnosis: Dementia, Pneumonia Referrals: [facility] [Outside] - 3-5 Days Koppenheffer,Peter, MD [Primary Care Provider] - 1 Week Discharge Medications: New acetaminophen 325 mg Tablet 650 mg PO Q6H PRN (Reason: Headache/Pain Mild Scale (1-3)) Qty: 60 0RF donepezil 10 mg Tablet 10 mg PO BEDTIME Qty: 90 0RF fluoxetine 20 mg Capsule 20 mg PO DAILY Qty: 90 0RF memantine 10 mg Tablet 10 mg PO BID Qty: 90 0RF folic acid 1 mg Tablet 1 mg PO DAILY Qty: 90 0RF Discontinued folic acid 1 mg PO DAILY fluoxetine 40 mg PO DAILY melatonin 3 mg PO BEDTIME Discharge Orders: Discharge Order (Routine); Ordered 04/26/24 Ordered By: Shoaib Pink Diet: Advance to usual diet Activity on Discharge: As tolerated Stand Alone Forms: Patient Portal Discharge page Print Language: Bolivian Care Plan Goals: To be safe in an assisted living facility Health Concerns: dementia without behavioral disturbance, short term memoery impairment Plan of Treatment: To assisted living facility Assessment: see above
[2024-04-25 19:09] VITALS: BP 109/55; PULSE 97; RESP 20; TEMP 36.5; O2SAT 95
[2024-04-25] MEDS: Enoxaparin Sodium 40 MG/0.4 ML SYRINGE SUBCUT (20:09)
[2024-04-25] MEDS: Donepezil HCl 10 MG TABLET PO (20:09)
[2024-04-26 03:37] VITALS: BP 107/64; PULSE 60; RESP 16; TEMP 36.2; O2SAT 94
[2024-04-26] MEDS: Memantine HCl 10 MG TABLET PO (07:33)
[2024-04-26] MEDS: Folic Acid 1 MG TABLET PO (07:33)
[2024-04-26] MEDS: FLUoxetine HCl 20 MG CAPSULE PO (07:33)
[2024-04-26 07:56] VITALS: BP 108/54; PULSE 66; RESP 17; TEMP 36.5; O2SAT 94
--- NOTE | 2024-04-26 09:17 | MHC.CM.PN ---
Patient will dc via BLS at 11am to [facility] w/ VNA through [facility]. HCP Yuliana aware of dc. IMM delivered. Confirmed w/ Earnest & Aasd - heraclio's received.
--- NOTE | 2024-04-26 09:35 | W.MHC.F2F ---
Service Date Service Date: 04/26/24 Encounter Date of encounter: 04/26/24 Reasons for Services Signs and symptoms assessed: Memory issues Reason for penitentiary: medication management and medication treatment Homebound: Leaving the home is medically contraindicated at this time without the asist of a device and/or another person due th the listed conditions above and below. Reason homebound: psychologically impaired / unsafe Homebound supporting statement: Homebound ddue to dementia with short term memory and needs assistance of another person for his care Certification: Based on the above findings, I certify that this patient is confined to the home and needs intermittent penitentiary care, physical therapy and/or speech therapy, or continues to need occupational therapy. The patient is under my care, and I have initiated the establishment of the plan of care. The patient will be followed by a physician who will periodically review the plan of care. Time Spent With Patient Time: Total time managing care of this patient today ____ minutes.
== END 2024-04-26 11:19 | disposition home health service (06) | DRG 871 ==
LOC: HO.IMC 04-03 13:04 → HO.S3 04-05 14:19
PROVIDERS: Family Medicine; Physician Assistant; Student in an Organized Health Care Education/Training Program; Admitting Provider Internal Medicine; PCP Family Medicine; Visit Provider Internal Medicine
DX: A41.9 Sepsis, unspecified organism (principal); G93.41 Metabolic encephalopathy; J18.9 Pneumonia, unspecified organism; F02.818 Dementia in other diseases classified elsewhere, unspecified severity, with other behavioral disturbance; J02.9 Acute pharyngitis, unspecified; M17.0 Bilateral primary osteoarthritis of knee; N50.3 Cyst of epididymis; R10.9 Unspecified abdominal pain; G30.9 Alzheimer's disease, unspecified; Z20.822 Contact with and (suspected) exposure to COVID-19; Z75.1 Person awaiting admission to adequate facility elsewhere; Z79.899 Other long term (current) drug therapy
CPT/HCPCS: 0241U; 36415; 80048; 80202; 81003; 82565; 83605; 84145; 85025; 85027; 87040; 87449; 87640; 87641; 87651; 87899; 92526; 92610; 93005; 97116; 97162; J1650; J2543; J3370; J3371; S9485

== ENCOUNTER → 2024-03-01 20:19 | Outpatient (BNV) | payer MEDICARE, MEDICAID, SELFPAY | PROVIDERS: Admitting Provider Internal Medicine; Visit Provider Student in an Organized Health Care Education/Training Program | DX: F03.90 Unspecified dementia, unspecified severity, without behavioral disturbance, psychotic disturbance, mood disturbance, and anxiety (principal) | CPT/HCPCS: 99223; 99231; 99232; 99233; 99239; G0180 ==

== ENCOUNTER → 2024-03-01 20:19 | Outpatient (BNV) | payer MEDICARE, MEDICAID, SELFPAY | PROVIDERS: Admitting Provider Internal Medicine; PCP Family Medicine; Visit Provider Urology | DX: N50.3 Cyst of epididymis (principal) | CPT/HCPCS: 99222 ==

== ENCOUNTER 2024-08-29 09:41 | Emergency (ER) | payer MEDICARE, MEDICAID, SELFPAY ==
[2024-08-29 09:49] VITALS: BP 110/64; BP 125/78; PULSE 60; RESP 18; TEMP 36.5; O2SAT 96; BMI 21.0
[2024-08-29 10:14] LABS: MANUAL DIFF FLAG NO
[2024-08-29 10:15] LABS: Basophils Absolute Auto 0.1 X10*3/uL (0.0-0.2); Basophils Percent Auto 0.7 % (0-2); Eosinophils Absolute Auto 0.1 X10*3/uL (0.0-0.4); Eosinophils Percent Auto 1.4 % (0-4); Hematocrit 39.9 % (42.0-52.0); Hemoglobin 13.5 g/dl (14.0-18.0); Imm Gran Abs Auto 0.02 X10*3/uL (0.00-0.03); Imm Gran Pct Auto 0.3 % (0.0-0.4); Lymphocytes Absolute Auto 2.1 X10*3/uL (1.2-4.9); Lymphocytes Percent Auto 29.6 % (20-40); Mean Corpuscular HGB Conc 33.8 g/dl (31.0-36.0); Mean Corpuscular Hemoglobin 32.2 pg (27.0-33.0); Mean Corpuscular Volume 95.2 fL (80.0-98.0); Mean Platelet Volume 9.4 fL (9.4-12.4); Monocytes Absolute Auto 0.7 X10*3/uL (0.1-1.2); Monocytes Percent Auto 9.3 % (2-11); Neutrophils Absolute Auto 4.2 x10*3/uL (2.0-8.3); Neutrophils Percent Auto 58.7 % (45-73); Platelet Count 255 X10*3/uL (160-400); Red Blood Count 4.19 X10*6/uL (4.60-5.80); Red Cell Distribution Width 13.5 % (11.0-16.0); White Blood Count 7.1 X10*3/uL (4.8-10.8)
[2024-08-29 10:17] LABS: Appearance Urine Clear; Color Urine Yellow; Glucose Urine UA Negative (Negative); Leukocyte Esterase Urine Negative (Negative); Nitrite Urine Negative (Negative); PH 6.5 (5.0-9.0); Urine Blood Negative (Negative); Urine Ketones Negative (Negative); Urine Protein Negative (Neg-Trace)
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
[2024-08-29 10:20] LABS: Bacteria Urine None Seen (None Seen); Hyaline Casts Urine 0-2 /LPF (0-2); RBC Urine 0-2 /HPF (0-2); Squamous Epithelial Cell Urine 0-2 /HPF (0-2); WBC Urine 0-5 /HPF (0-5)
[2024-08-29 10:35] LABS: Alanine Aminotransferase 20 U/L (0-40); Albumin Level 3.6 g/dL (3.5-5.0); Alkaline Phosphatase 97 U/L (39-117); Anion Gap 9 (12-20); Aspartate Amino Transferase 20 U/L (5-37); Bilirubin Total 0.4 mg/dL (0.0-1.0); Blood Urea Nitrogen 17 mg/dL (9-16); Calcium 8.6 mg/dL (8.4-10.2); Carbon Dioxide 29 mmol/L (22-29); Chloride 102 mmol/L (96-108); Creatinine Clr Calc Pharmacy 67.6; Estimated Glomerular Filt Rate > 60; Glucose Random 102 mg/dL (60-115); Potassium 3.3 mmol/L (3.3-5.1); Sodium 137 mmol/L (135-145); Total Protein 6.6 g/dL (6.5-8.0)
[2024-08-29] MEDS: risperiDONE 1 MG TABLET PO (10:37)
--- NOTE | 2024-08-29 10:37 | PC.NURSE ---
medication administered per provider order. pt continues to remain calm/cooperative.
--- NOTE | 2024-08-29 11:21 | PC.NURSE ---
report given to MINERVA Stubbs at [facility] in [place] at this time. [facility] agent notified/aware that transportation is needed at this time. ETA unknown. will update pt when able.
[2024-08-29 12:18] VITALS: BP 105/69; PULSE 84; RESP 16; TEMP 36.7; O2SAT 93
--- NOTE | 2024-08-29 13:36 | PC.NURSE ---
Olga Hanson HCP called for status update on patient. update given to HCP. pt continues to wait for transfer back to facility at this time. plan of care ongoing.
[2024-08-29 17:05] VITALS: BP 112/76; PULSE 66; RESP 14; TEMP 36.8; O2SAT 95
[2024-08-29 17:07] VITALS: BP 112/76; PULSE 66; RESP 20; TEMP 36.8; O2SAT 95
--- OUTSIDE RECORDS SUMMARY | 2024-08-31 14:25 | XMS_ITS | Clinical Summary ---
Author Organization Unknown Care Team Providers Care Planning Division Superintendent Name Role Phone WILLARD WOODY, COLTON Unavailable Unavailab martha HUTCHINS RN, CANDELARIO Unavailable Unavailable PENDRISS PAPER PLATE MACHINE TENDER, TYLOR Unavailable Unavailable DU DONALD ST, ZEYAD Unavailable Unavailable JIMMY PT, GATITO Unavailable Unavailable LINGTEALBERT INDUSTRY SEGMENT SPECIALIST, NELLY Unavailable Unavailable Payers Payer Name Policy Type Policy Number Effective Date Expira tion Date MEDICARE.NGS.PDGM [id number] Problems Condition Name Condition Details Condition Category Status Onset Date Resolution Date Last Treatment Date Treating Clinician Comments PNEUMONIA, UNSPECIFIED ORGANISM Active 12-15 00:00: 00 ALZHEIMER'S DISEASE, UNSPECIFIED Active 12-15 00:00: 00 DEM IN OTH DIS CLASSD ELSWHR, UNSP SEV, WITH OTH BEH DISTRB Active 12-15 00:00: 00 DEM IN OTHER DIS CLASSD ELSWHR, UNSP SEVERITY, WITH ANXIETY Active 12-15 00:00: 00 DEPRESSION, UNSPECIFIED Active 09-21 00:00: 00 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 Ordering Clinician Indication Dosage Frequency Signature (SIG) Comments Components azithromyci n 500 mg tablet 12-13 00:00: 00 2024- 03-29 23:59 :00 No [id number] PNA 1 tablet 2 TIMES DAILY 1 tablet 2 TIMES DAILY (route: oral) Med Classific ation: Anti-Infe ctive Agents cefdinir 300 mg capsule 3 00:00: 00 12-19 23:59 :00 No [id number] PNA 1 capsule 2 TIMES DAILY 1 capsule 2 TIMES DAILY (route: oral) Med Classific ation: Anti-Infe ctive Agents fluoxetine 20 mg capsule 12-15 00:00: 00 Yes [id number] COPD 2 capsule DAILY 2 capsule DAILY (route: oral) Med Classific ation: Central Nervous System Agents Vital Signs Vital Name Observation Time Observation Value Commen ts Temperature 2023-12-21 10:24:00.000 97.5 [degF] Temperature 2023-12-18 10:36:00.000 97.4 [degF] Temperature 2023-12-17 13:08:00.000 98.6 [degF] Temperature 2023-12-16 11:46:00.000 97.3 [degF] BMI (%) 2023-12-16 11:46:00.000 18 kg/m2 Height 2023-12-16 11:46:00.000 68 [in_us] Pulse 2023-12-21 10:24:00.000 72 /min Pulse 2023-12-18 10:36:00.000 74 /min Pulse 2023-12-17 13:08:00.000 95 /min Pulse 2023-12-16 11:46:00.000 98 /min O2 Saturation (%) 2023-12-21 10:24:00.000 95 % O2 Saturation (%) 2023-12-18 10:36:00.000 97 % O2 Saturation (%) 2023-12-17 13:08:00.000 95 % O2 Saturation (%) 2023-12-16 11:46:00.000 98 % Respirations 2023-12-21 10:24:00.000 18 /min Respirations 2023-12-18 10:36:00.000 18 /min Respirations 2023-12-17 13:08:00.000 18 /min Respirations 2023-12-16 11:46:00.000 18 /min Weight (lbs) 2023-12-16 11:46:00.000 123 [lb_av] Systolic Blood Pressure 2023-12-21 10:24:00.000 102 mm [Hg] Systolic Blood Pressure 2023-12-18 10:36:00.000 116 mm [Hg] Systolic Blood Pressure 2023-12-17 13:08:00.000 94 mm[ Hg] Systolic Blood Pressure 2023-12-16 11:46:00.000 118 mm [Hg] Diastolic Blood Pressure 2023-12-21 10:24:00.000 58 mm [Hg] Diastolic Blood Pressure 2023-12-18 10:36:00.000 72 mm [Hg] Diastolic Blood Pressure 2023-12-17 13:08:00.000 60 mm [Hg] Diastolic Blood Pressure 2023-12-16 11:46:00.000 64 mm [Hg] Plan of Treatment Planned Activity Planned Date Details Comments Future Scheduled Test RN TO OBSE RVE, ASSESS, EVALUATE, AND DEVELOP AN INDIVIDUALIZED PLAN OF CARE. AGENCY MAY ACCEPT ORDERS FROM CONSULTING PHYSICIANS. REGISTERED NURSETO OBSERVE AND ASSESS/LICENSED PRACTICAL NURSE TO OBSERVE FOR RISK FOR FALLS AND INSTRUCT IN FALL PREVENTION, HOME SAFETY, MEDICATION MANAGEMENT, INFECTION PREVENTION, AND NUTRITION MANAGEMENT. REGISTERED NURSE/LICENSED PRACTICAL NURSE MAY PERFORM O2 SATURATION LEVEL ON ADMISSION AND PRN FOR RN TO ASSESS/PAPER PLATE MACHINE TENDER TO OBSERVE PATIENT, WITH NOTIFICATION TO THE PHYSICIAN IF SATURATION IS 90% IN THE ABSENCE OF MORE SPECIFIC PARAMETERS FROM THE PHYSICIAN. AGENCY MAY PERFORM A RESUMPTION OF CARE VISIT FOLLOWING ANY HOSPITAL ADMISSION. REGISTERED NURSE/LICENSED PRACTICAL NURSE TO MONITOR CO-MORBID CONDITIONS LISTED ON THE PLAN OF CARE AND ANY NEW CONDITIONS THAT PRESENT THEMSELVES DURING THIS EPISODE TO IDENTIFY CHANGES AND INTERVENE TO MINIMIZE COMPLICATIONS. [code = RN TO OBSERVE, ASSESS, EVALUATE, AND DEVELOP AN INDIVIDUALIZED PLAN OF CARE. AGENCY MAY ACCEPT ORDERS FROM CONSULTING PHYSICIANS. REGISTERED NURSETO OBSERVE AND ASSESS/LICENSED PRACTICAL NURSE TO OBSERVE FOR RISK FOR FALLS AND INSTRUCT IN FALL PREVENTION, HOME SAFETY, MEDICATION MANAGEMENT, INFECTION PREVENTION, AND NUTRITION MANAGEMENT. REGISTERED NURSE/LICENSED PRACTICAL NURSE MAY PERFORM O2 SATURATION LEVEL ON ADMISSION AND PRN FOR RN TO ASSESS/PAPER PLATE MACHINE TENDER TO OBSERVE PATIENT, WITH NOTIFICATION TO THE PHYSICIAN IF SATURATION IS 90% IN THE ABSENCE OF MORE SPECIFIC PARAMETERS FROM THE PHYSICIAN. AGENCY MAY PERFORM A RESUMPTION OF CARE VISIT FOLLOWING ANY HOSPITAL ADMISSION. REGISTERED NURSE/LICENSED PRACTICAL NURSE TO MONITOR CO-MORBID CONDITIONS LISTED ON THE PLAN OF CARE AND ANY NEW CONDITIONS THAT PRESENT THEMSELVES DURING THIS EPISODE TO IDENTIFY CHANGES AND INTERVENE TO MINIMIZE COMPLICATIONS.] Future Scheduled Test MEDICATION MANAGEMENT; REGISTERED NURSE/LICENSED PRACTICAL NURSE TO REVIEW MEDICATIONS FOR INTERACTIONS, EFFECTIVENESS OF DRUG THERAPY, AND SIGNS/SYMPTOMS OF ADVERSE REACTIONS. MAY INSTRUCT AND REINFORCE MEDICATION TEACHING RELATED TO THE USE OF MEDICATIONS, DOSAGE, FREQUENCY, PURPOSE, SIDE EFFECTS, AND TO REPORT COMPLICATIONS. [code = MEDICATION MANAGEMENT; REGISTERED NURSE/LICENSED PRACTICAL NURSE TO REVIEW MEDICATIONS FOR INTERACTIONS, EFFECTIVENESS OF DRUG THERAPY, AND SIGNS/SYMPTOMS OF ADVERSE REACTIONS. MAY INSTRUCT AND REINFORCE MEDICATION TEACHING RELATED TO THE USE OF MEDICATIONS, DOSAGE, FREQUENCY, PURPOSE, SIDE EFFECTS, AND TO REPORT COMPLICATIONS.] Future Scheduled Test RISK FOR H OSPITALIZATION; REGISTERED NURSE TO ASSESS /TEACH, LICENSED PRACTICAL NURSE TO OBSERVE/TEACH PATIENT/CAREGIVER ON RISK FOR HOSPITALIZATION/EMERGENCY ROOM VISITS, TEACH SIGNS AND SYMPTOMS THAT PUT PATIENT AT RISK, WHEN TO NOTIFY NURSE/PHYSICIAN OF COMPLICATIONS/DECLINE, AND WHEN TO CALL 911. [code = RISK FOR HOSPITALIZATION; REGISTERED NURSE TO ASSESS /TEACH, LICENSED PRACTICAL NURSE TO OBSERVE/TEACH PATIENT/CAREGIVER ON RISK FOR HOSPITALIZATION/EMERGENCY ROOM VISITS, TEACH SIGNS AND SYMPTOMS THAT PUT PATIENT AT RISK, WHEN TO NOTIFY NURSE/PHYSICIAN OF COMPLICATIONS/DECLINE, AND WHEN TO CALL 911.] Future Scheduled Test RESPIRATOR Y SYSTEM MANAGEMENT; REGISTERED NURSE TO ASSESS AND TEACH/LICENSED PRACTICAL NURSE TO OBSERVE AND TEACH RELATED TO ALTERED RESPIRATORY STATUS TO MINIMIZE COMPLICATIONS AND REDUCE HOSPITALIZATION. [code = RESPIRATORY SYSTEM MANAGEMENT; REGISTERED NURSE TO ASSESS AND TEACH/LICENSED PRACTICAL NURSE TO OBSERVE AND TEACH RELATED TO ALTERED RESPIRATORY STATUS TO MINIMIZE COMPLICATIONS AND REDUCE HOSPITALIZATION.] Future Scheduled Test PNEUMONIA MANAGEMENT; REGISTERED NURSE TO ASSESS AND TEACH/LICENSED PRACTICAL NURSE TO OBSERVE AND TEACH SIGNS OF PNEUMONIA EXACERBATION AND PROVIDE EARLY INTERVENTIONS TO MINIMIZE RISK OF HOSPITALIZATION. [code = PNEUMONIA MANAGEMENT; REGISTERED NURSE TO ASSESS AND TEACH/LICENSED PRACTICAL NURSE TO OBSERVE AND TEACH SIGNS OF PNEUMONIA EXACERBATION AND PROVIDE EARLY INTERVENTIONS TO MINIMIZE RISK OF HOSPITALIZATION.] Future Scheduled Test PAIN MANAG EMENT; REGISTERED NURSE TO ASSESS AND TEACH/LICENSED PRACTICAL NURSE TO OBSERVE AND TEACH AND PROVIDE EDUCATION ON PAIN MANAGEMENT TECHNIQUES. [code = PAIN MANAGEMENT; REGISTERED NURSE TO ASSESS AND TEACH/LICENSED PRACTICAL NURSE TO OBSERVE AND TEACH AND PROVIDE EDUCATION ON PAIN MANAGEMENT TECHNIQUES.] Future Scheduled Test FALL REDUC TION MANAGEMENT; REGISTERED NURSE TO ASSESS AND TEACH/LICENSED PRACTICAL NURSE TO OBSERVE AND TEACH ON EDUCATION AND INTERVENTION TO IDENTIFY FALL RISK FACTORS SUCH MEDICATIONS THAT MAY CAUSE DIZZINESS, CHRONIC DISEASES, PSYCHOLOGICAL FACTORS, AND EMPOWER/EDUCATE PATIENT/CAREGIVER TO MINIMIZE FALL RISK. [code = FALL REDUCTION MANAGEMENT; REGISTERED NURSE TO ASSESS AND TEACH/LICENSED PRACTICAL NURSE TO OBSERVE AND TEACH ON EDUCATION AND INTERVENTION TO IDENTIFY FALL RISK FACTORS SUCH MEDICATIONS THAT MAY CAUSE DIZZINESS, CHRONIC DISEASES, PSYCHOLOGICAL FACTORS, AND EMPOWER/EDUCATE PATIENT/CAREGIVER TO MINIMIZE FALL RISK.] Future Scheduled Test PHYSICAL T HERAPIST TO EVALUATE [code = PHYSICAL THERAPIST TO EVALUATE ] Future Scheduled Test AGENCY MAY PERFORM A RESUMPTION OF CARE VISIT FOLLOWING ANY HOSPITAL ADMISSION. SPEECH THERAPY TO EVALUATE, ASSESS AND MONITOR, PROVIDE SKILLED THERAPEUTIC INTERVENTION, ACTIVITY, EDUCATION, AND TRAINING TO ADDRESS: DIET TOLERANCE/TRIALS (ST) COMPENSATORY STRATEGIES (ST) THERAPEUTIC EXERCISES (ST) DYSPHAGIA ? EDUCATE PATIENT/CAREGIVER ON COMPENSATORY STRATEGIES FOR INCREASED SAFETY DURING ORAL INTAKE AND ESTABLISH ORAL MOTOR HOME EXERCISE PROGRAM. RESPIRATORY MUSCLE STRENGTH PLUG MACHINE OPERATOR FOR IMPROVED SWALLOW AND/OR VOCAL FUNCTION.? (ST) FALL REDUCTION SELF-MANAGEMENT (ST); PNEUMONIA SELF-MANAGEMENT (ST) PAIN MANAGEMENT (ST) [code = AGENCY MAY PERFORM A RESUMPTION OF CARE VISIT FOLLOWING ANY HOSPITAL ADMISSION. SPEECH THERAPY TO EVALUATE, ASSESS AND MONITOR, PROVIDE SKILLED THERAPEUTIC INTERVENTION, ACTIVITY, EDUCATION, AND TRAINING TO ADDRESS: DIET TOLERANCE/TRIALS (ST) COMPENSATORY STRATEGIES (ST) THERAPEUTIC EXERCISES (ST) DYSPHAGIA ? EDUCATE PATIENT/CAREGIVER ON COMPENSATORY STRATEGIES FOR INCREASED SAFETY DURING ORAL INTAKE AND ESTABLISH ORAL MOTOR HOME EXERCISE PROGRAM. RESPIRATORY MUSCLE STRENGTH PLUG MACHINE OPERATOR FOR IMPROVED SWALLOW AND/OR VOCAL FUNCTION.? (ST) FALL REDUCTION SELF-MANAGEMENT (ST); PNEUMONIA SELF-MANAGEMENT (ST) PAIN MANAGEMENT (ST)] Future Scheduled Test AGENCY MAY PERFORM A RESUMPTION OF CARE VISIT FOLLOWING ANY HOSPITAL ADMISSION. PHYSICAL THERAPY TO EVALUATE, ASSESS AND MONITOR, PROVIDE SKILLED THERAPEUTIC INTERVENTION, ACTIVITY, EDUCATION, AND TRAINING TO ADDRESS: TRANSFER TRAINING (PT) GAIT TRAINING (PT) NEUROMUSCULAR RE-EDUCATION / BALANCE RETRAINING (PT) THERAPEUTIC EXERCISES (PT) STAIR TRAINING (PT) OXYGEN SATURATION (PT). NOTIFY MD IF 02SATS BELOW 90% AFTER 10 MIN OF REST. PNEUMONIA SELF-MANAGEMENT (PT) IDENTIFY FALL RISK FACTORS AND ESTABLISH HOME EXERCISE PROGRAM TO MINIMIZE FALL RISK. MAY TEACH THE PATIENT FLOOR RECOVERY WHEN CLINICALLY APPROPRIATE (PT) PAIN MANAGEMENT (PT) [code = AGENCY MAY PERFORM A RESUMPTION OF CARE VISIT FOLLOWING ANY HOSPITAL ADMISSION. PHYSICAL THERAPY TO EVALUATE, ASSESS AND MONITOR, PROVIDE SKILLED THERAPEUTIC INTERVENTION, ACTIVITY, EDUCATION, AND TRAINING TO ADDRESS: TRANSFER TRAINING (PT) GAIT TRAINING (PT) NEUROMUSCULAR RE-EDUCATION / BALANCE RETRAINING (PT) THERAPEUTIC EXERCISES (PT) STAIR TRAINING (PT) OXYGEN SATURATION (PT). NOTIFY MD IF 02SATS BELOW 90% AFTER 10 MIN OF REST. PNEUMONIA SELF-MANAGEMENT (PT) IDENTIFY FALL RISK FACTORS AND ESTABLISH HOME EXERCISE PROGRAM TO MINIMIZE FALL RISK. MAY TEACH THE PATIENT FLOOR RECOVERY WHEN CLINICALLY APPROPRIATE (PT) PAIN MANAGEMENT (PT) ] Goal 2024-01-01 Patient Goal - T O REGAIN STRENGTH AND HAVE HIM STOP FALLING AND GAIN WEIGHT BECAUSE HES BEEN LOSING Goal Provider Goal - A PLAN OF CARE WILL BE ESTABLISHED THAT MEETS THE PATIENTS NEEDS. PATIENT WILL DEMONSTRATE OXYGEN SATURATION WITHIN NORMAL LIMITS OR PATIENTS OPTIMAL LEVEL ESTABLISHED BY THE PHYSICIAN THROUGHOUT CARE. CHANGES TO CO-MORBID CONDITIONS AND ANY NEW CONDITIONS WILL BE IDENTIFIED AND REPORTED TO THE PHYSICIAN. Goal Provider Goal - PATIENT/CAREGIVER TO VERBALIZE, AND CONSISTENTLY DEMONSTRATE EFFECTIVE, SAFE MANAGEMENT OF MEDICATION INCLUDING KNOWLEDGE OF EFFECTIVENESS, POTENTIAL SIDE EFFECTS AND DRUG REACTIONS AND WHEN TO CONTACT THE APPROPRIATE CARE PROVIDER. PATIENT/CAREGIVER WILL BE ABLE TO VERBALIZE UNDERSTANDING OF MEDICATION REGIMEN AND ACCURATELY TAKE MEDICATIONS PRESCRIBED WITHOUT ADVERSE EFFECTS BY 02/11 Goal Provider Goal - PATIENT/CAREGIVER WILL VERBALIZE UNDERSTANDING OF SIGNS AND SYMPTOMS THAT PUT THE PATIENT AT RISK FOR HOSPITALIZATION /EMERGENCY ROOM VISITS, WHEN TO NOTIFY NURSE/PHYSICIAN OF COMPLICATIONS/DECLINE AND WHEN TO CALL 911. Goal Provider Goal - PATIENT / CAREGIVER WILL VERBALIZE/DEMONSTRATE UNDERSTANDING OF MEASURES TO MANAGE ALTERED RESPIRATORY STATUS BY END OF EPISODE. Goal Provider Goal - PATIENT / CAREGIVER WILL VERBALIZE/DEMONSTRATE AN ABILITY TO ADHERE TO PNEUMONIA SELF-MANAGEMENT TO MINIMIZE COMPLICATIONS AND AVOID HOSPITALIZATION BY END OF EPISODE. Goal Provider Goal - PATIENT / CAREGIVER WILL VERBALIZE / DEMONSTRATE UNDERSTANDING OF PAIN CONTROL MEASURES BY 02/11 Goal Provider Goal - PATIENT/CAREGIVER ABLE TO IDENTIFY FALL RISK FACTORS AND IMPLEMENT STRATEGIES TO MINIMIZE FALL RISK. PATIENT/CAREGIVER WILL VERBALIZE/DEMONSTRATE AN ABILITY TO ADHERE TO FALL REDUCTION SELF MANAGEMENT AND LIFE-STYLE CHANGES AT DISCHARGE. PERSONAL GOAL(S) STATED BY PATIENT/CAREGIVER WILL BE MET BY 02/11 Goal Provider Goal - Goal Provider Goal - ST STG: PATIENT WILL IMPROVE DIET TEXTURE SAFETY FROM MIN TO MOD I WITHIN [address] LTG: PATIENT WILL INCREASE DIET TEXTURE SAFETY FROM MIN TO WFL WITHIN [address] STG: PATIENT WILL UTILIZE SWALLOW STRATEGIES IN 80% OF TRIALS WITHIN [address] LTG: PATIENT/CAREGIVER INCREASED USE OF COMPENSATORY STRATEGIES FROM 0% TO 100% WITHIN [address] STG: PATIENT WILL COMPLETE SWALLOW EXERCISES FOR IMPROVED SAFETY OF PHARYNGEAL STAGE OF SWALLOW FROM MIN TO MOD I WITHIN [address] LTG: PATIENT/CAREGIVER WILL BE ABLE TO RETURN DEMONSTRATE THERAPEUTIC EXERCISES FOR IMPROVED SAFETY OF PHARYNGEAL STAGE OF SWALLOW FROM MIN TO WFL WITHIN 8 WEEKS. PATIENT/CAREGIVER WILL BE ABLE TO IMPLEMENT COMPENSATORY STRATEGIES FOR INCREASED SAFETY DURING ORAL INTAKE AND WILL BE ABLE TO COMPLETE ORAL MOTOR HOME EXERCISE PROGRAM AT DISCHARGE. ST STG: PATIENT WILL COMPLETE SWALLOW EXERCISES ON LEVEL 2/[address] LTG: PATIENT WILL RETURN DEMONSTRATE INDEPENDENT USE OF RESPIRATORY BREATHER BY END OF EPISODE. STG: PATIENT/CAREGIVER WILL DEMONSTRATE ADHERENCE TO FALL REDUCTION SELF MANAGEMENT TO MINIMIZE FALL RISK BY END OF EPISODE. PATIENT / CAREGIVER WILL DEMONSTRATE ADHERENCE TO PNEUMONIA SELF-MANAGEMENT BY END OF EPISODE. ST GOAL: PATIENT / CAREGIVER WILL VERBALIZE UNDERSTANDING OF PAIN MANAGEMENT BY END OF EPISODE. Goal Provider Goal - PT LTG: PATIENT WILL DEMONSTRATE IMPROVED TRANSFERS FROM SBA TO INDEPENDENT WITHIN 5 WEEKS PT LTG: PATIENT WILL DEMONSTRATE IMPROVED AMBULATION FROM SBA TO INDEPENDENT WITHIN 5 WEEKS PT LTG: PATIENT WILL DEMONSTRATE REDUCED FALL RISK EVIDENCED BY TINETTI IMPROVING FROM 20/28 TO 28/28 WITHIN 5 WEEKS PT STG: PATIENT WILL DEMONSTRATE INDEPENDENCE WITH BLE HEP WITHIN 2 WEEKS PT LTG: PATIENT WILL DEMONSTRATE INCREASED STRENGTH OF BLE FROM 3+/5 TO 4+/5 WITHIN 5 WEEKS IN ORDER TO IMPROVE GAIT AND TRANSFERS PT LTG: PATIENT WILL DEMONSTRATE IMPROVED ABILITY TO SAFELY NEGOTIATE STAIRS FROM SBA TO INDEPENDENT WITHIN 5 WEEKS PATIENT WILL MAINTAIN OXYGEN SATURATION WITHIN PHYSICIAN ORDERED PARAMETERS THROUGHOUT EPISODE OF CARE PATIENT / CAREGIVER WILL DEMONSTRATE ADHERENCE TO PNEUMONIA SELF-MANAGEMENT BY END OF EPISODE. PATIENT/CAREGIVER WILL DEMONSTRATE ADHERENCE TO FALL REDUCTION SELF MANAGEMENT TO MINIMIZE FALL BY END OF EPISODE. PT GOAL: PATIENT/CAREGIVER WILL VERBALIZE UNDERSTANDING OF PAIN MANAGEMENT BY END OF EPISODE. Reason for Visit MODERATE ASSIST WITH TRANSFER/AMBULATION/ADLS Encounters Start Date/Time End Date/Time Encounter Type Admission Type Attending [facility] Care Facility Care Department Encounter ID Discharge Date Discharge Status Discharge Condition Discharge Reason Percent Goals Met 2023-12-16 00:00:00 2024-01-01 00:00:00 Outpatient NEW ADMISSION CANDELARIO HUTCHINS [facility] [id number] 2024-01-01 00:00:00 DISCHARGED /TRANSFERR ED TO A SHORT-[facility] FOR [facility] MODERATE ASSIST WITH TRANSFER/A MBULATION/ ADLS HH ONLY - TRANSFER TO HOSPITAL 46.67
== END 2024-08-29 17:08 ==
PROVIDERS: Emergency Provider Emergency Medicine; PCP Family Medicine
DX: F03.911 Unspecified dementia, unspecified severity, with agitation (principal); R41.82 Altered mental status, unspecified; Z79.899 Other long term (current) drug therapy
CPT/HCPCS: 36415; 80053; 81001; 85025; 99283; 99284

== ENCOUNTER 2024-09-02 04:20 | Emergency (ER) | payer MEDICARE, MEDICAID, SELFPAY ==
[2024-09-02 04:26] VITALS: BP 122/78; PULSE 78; O2SAT 98
[2024-09-02 04:33] VITALS: BP 121/67; PULSE 66; RESP 18; TEMP 36.5; O2SAT 93; BMI 25.8
--- OUTSIDE RECORDS SUMMARY | 2024-09-02 04:49 | XMS_ITS | Clinical Summary ---
Author Organization Unknown Care Team Providers Care Industrial Gas Servicer Name Role Phone WILLARD WOODY, COLOTN Unavailable Unavailab martha HUTCHINS RN, CANDELARIO Unavailable Unavailable PENDRISS FILM PRINTER, TYLOR Unavailable Unavailable DU DONALD ST, ZEYAD Unavailable Unavailable JIMMY PT, GATITO Unavailable Unavailable LINGTEALBERT ELECTRO MECHANICAL SOLAR TECHNICIAN, NELLY Unavailable Unavailable Payers Payer Name Policy Type Policy Number Effective Date Expira tion Date MEDICARE.NGS.PDGM [id number] Problems Condition Name Condition Details Condition Category [...] 00:00: 00 2024- 03-29 23:59 :00 No [id number] PNA 1 tablet 2 TIMES DAILY 1 tablet 2 TIMES DAILY (route: oral) Med Classific ation: Anti-Infe ctive Agents cefdinir 300 mg capsule 3 00:00: 00 12-19 23:59 :00 No [id number] PNA 1 capsule 2 TIMES DAILY 1 capsule 2 TIMES DAILY (route: oral) Med Classific ation: Anti-Infe ctive Agents fluoxetine 20 mg capsule 12-15 00:00: 00 Yes [id number] COPD 2 capsule DAILY 2 capsule DAILY [...] ON ADMISSION AND PRN FOR RN TO ASSESS/FILM PRINTER TO OBSERVE PATIENT, WITH NOTIFICATION TO THE [...] ON ADMISSION AND PRN FOR RN TO ASSESS/FILM PRINTER TO OBSERVE PATIENT, WITH NOTIFICATION TO THE [...] MOTOR HOME EXERCISE PROGRAM. RESPIRATORY MUSCLE STRENGTH CARPET FLOOR LAYER APPRENTICE FOR IMPROVED SWALLOW AND/OR VOCAL FUNCTION.? (ST) [...] MOTOR HOME EXERCISE PROGRAM. RESPIRATORY MUSCLE STRENGTH CARPET FLOOR LAYER APPRENTICE FOR IMPROVED SWALLOW AND/OR VOCAL FUNCTION.? (ST) [...] End Date/Time Encounter Type Admission Type Attending [facility] Care Facility Care Department Encounter ID Discharge Date Discharge Status Discharge Condition Discharge Reason Percent Goals Met 2023-12-16 00:00:00 2024-01-01 00:00:00 Outpatient NEW ADMISSION CANDELARIO HUTCHINS [facility] [id number] 2024-01-01 00:00:00 DISCHARGED /TRANSFERR ED TO A SHORT-[facility] FOR [facility]PATIENT CARE MODERATE ASSIST WITH TRANSFER/A MBULATION/ ADLS HH ONLY - TRANSFER TO HOSPITAL 46.67
--- OUTSIDE RECORDS SUMMARY | 2024-09-02 04:49 | XMS_ITS | Clinical Summary ---
Author Organization Unknown Care Team Providers Care Drill Press Operator Numerical Control Name Role Phone WILLARD WOODY, COLTON Unavailable Unavailab martha HUTCHINS RN, CANDELARIO Unavailable Unavailable PENDRISS ROUGH RICE GRADER, TYLOR Unavailable Unavailable DU DONALD ST, ZEYAD Unavailable Unavailable JIMMY PT, GATITO Unavailable Unavailable LINGTEALBERT SLATE PICKER, NELLY Unavailable Unavailable Payers Payer Name Policy Type Policy Number Effective Date Expira tion Date MEDICARE.NGS.PDGM [id number] Problems Condition Name Condition Details Condition Category [...] 00:00: 00 2024- 03-29 23:59 :00 No [id number] PNA 1 tablet 2 TIMES DAILY 1 tablet 2 TIMES DAILY (route: oral) Med Classific ation: Anti-Infe ctive Agents cefdinir 300 mg capsule 3 00:00: 00 12-19 23:59 :00 No [id number] PNA 1 capsule 2 TIMES DAILY 1 capsule 2 TIMES DAILY (route: oral) Med Classific ation: Anti-Infe ctive Agents fluoxetine 20 mg capsule 12-15 00:00: 00 Yes [id number] COPD 2 capsule DAILY 2 capsule DAILY [...] ON ADMISSION AND PRN FOR RN TO ASSESS/ROUGH RICE GRADER TO OBSERVE PATIENT, WITH NOTIFICATION TO THE [...] ON ADMISSION AND PRN FOR RN TO ASSESS/ROUGH RICE GRADER TO OBSERVE PATIENT, WITH NOTIFICATION TO THE [...] MOTOR HOME EXERCISE PROGRAM. RESPIRATORY MUSCLE STRENGTH MEDICAL ASSISTANT PRN FOR IMPROVED SWALLOW AND/OR VOCAL FUNCTION.? (ST) [...] MOTOR HOME EXERCISE PROGRAM. RESPIRATORY MUSCLE STRENGTH MEDICAL ASSISTANT PRN FOR IMPROVED SWALLOW AND/OR VOCAL FUNCTION.? (ST) [...] End Date/Time Encounter Type Admission Type Attending [facility] Care Facility Care Department Encounter ID Discharge Date Discharge Status Discharge Condition Discharge Reason Percent Goals Met 2023-12-16 00:00:00 2024-01-01 00:00:00 Outpatient NEW ADMISSION CANDELARIO HUTCHINS [facility] [id number] 2024-01-01 00:00:00 DISCHARGED /TRANSFERR ED TO A SHORT-[facility] FOR INPATIENT CARE MODERATE ASSIST WITH TRANSFER/A MBULATION/ ADLS HH ONLY - TRANSFER TO HOSPITAL 46.67
[2024-09-02 06:00] VITALS: BP 120/64; PULSE 66; RESP 12; TEMP 36.6; O2SAT 95
[2024-09-02 07:42] LABS: MANUAL DIFF FLAG NO
[2024-09-02 07:43] LABS: Basophils Percent Auto 0.4 % (0-2); Eosinophils Absolute Auto 0.1 X10*3/uL (0.0-0.4); Eosinophils Percent Auto 1.2 % (0-4); Hematocrit 36.9 % (42.0-52.0); Hemoglobin 12.8 g/dl (14.0-18.0); Imm Gran Abs Auto 0.02 X10*3/uL (0.00-0.03); Imm Gran Pct Auto 0.3 % (0.0-0.4); Lymphocytes Percent Auto 12.6 % (20-40); Mean Corpuscular HGB Conc 34.7 g/dl (31.0-36.0); Mean Corpuscular Hemoglobin 32.2 pg (27.0-33.0); Mean Corpuscular Volume 92.9 fL (80.0-98.0); Mean Platelet Volume 9.1 fL (9.4-12.4); Monocytes Absolute Auto 0.7 X10*3/uL (0.1-1.2); Monocytes Percent Auto 9.1 % (2-11); Neutrophils Absolute Auto 5.8 x10*3/uL (2.0-8.3); Neutrophils Percent Auto 76.4 % (45-73); Platelet Count 247 X10*3/uL (160-400); Red Blood Count 3.97 X10*6/uL (4.60-5.80); Red Cell Distribution Width 13.3 % (11.0-16.0); White Blood Count 7.6 X10*3/uL (4.8-10.8)
[2024-09-02 07:55] LABS: Alanine Aminotransferase 9 U/L (0-40); Albumin Level 3.4 g/dL (3.5-5.0); Alkaline Phosphatase 97 U/L (39-117); Anion Gap 8 (12-20); Aspartate Amino Transferase 24 U/L (5-37); Bilirubin Total 0.5 mg/dL (0.0-1.0); Blood Urea Nitrogen 19 mg/dL (9-16); Calcium 8.1 mg/dL (8.4-10.2); Carbon Dioxide 27 mmol/L (22-29); Chloride 107 mmol/L (96-108); Creatinine Clr Calc Pharmacy 69.8; Estimated Glomerular Filt Rate > 60; Glucose Random 96 mg/dL (60-115); Potassium 3.8 mmol/L (3.3-5.1); Sodium 138 mmol/L (135-145)
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
[2024-09-02 08:10] VITALS: BP 130/67; PULSE 65; RESP 14; TEMP 36.6; O2SAT 95
[2024-09-02 09:39] LABS: Appearance Urine Clear; Color Urine Yellow; Glucose Urine UA Negative (Negative); Leukocyte Esterase Urine Negative (Negative); Nitrite Urine Negative (Negative); Urine Blood Negative (Negative); Urine Ketones Negative (Negative); Urine Protein Negative (Neg-Trace)
--- NOTE | 2024-09-02 10:44 | PC.NURSE ---
spoke with [facility] staff [facility]. called to give nurse to nurse for patients return to facility. staff informed this RN they do not feel comfortable taking patient back with out a psych eval. this was discussed with provider but patient has a psychiatric social worker already at facility. this RN called psychiatric social worker but no answer, message left fo [employer]GR[employer]HER [facility] to return call but have not heard form her as of yet. plan is still to return patient to facility. patient has been clam and cooperative during his stay in ED. ems being booked for transport.
[2024-09-02 11:01] VITALS: BP 109/62; PULSE 65; RESP 16; TEMP 36.6; O2SAT 94
[2024-09-02 13:32] VITALS: BP 109/62; PULSE 65; RESP 16; TEMP 36.6; O2SAT 94
== END 2024-09-02 13:33 | disposition skilled nursing facility (03) ==
PROVIDERS: Emergency Provider Student in an Organized Health Care Education/Training Program; PCP Family Medicine
DX: F03.90 Unspecified dementia, unspecified severity, without behavioral disturbance, psychotic disturbance, mood disturbance, and anxiety (principal); F63.81 Intermittent explosive disorder
CPT/HCPCS: 36415; 80053; 81003; 85025; 99283; 99284

== ENCOUNTER 2024-09-04 14:15 | Emergency (ER) | payer MEDICARE, MEDICAID, SELFPAY ==
[2024-09-04 14:41] VITALS: BP 126/68; BP 128/64; PULSE 84; PULSE 86; RESP 16; TEMP 36.4; O2SAT 96; O2SAT 98; BMI 17.0
[2024-09-04 14:55] VITALS: BP 126/68; PULSE 86; RESP 16; TEMP 36.4; O2SAT 96
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
--- OUTSIDE RECORDS SUMMARY | 2024-09-04 15:39 | XMS_ITS | Clinical Summary ---
Author Organization Unknown Care Team Providers Care Assembler Faucets Name Role Phone WILLARD WOODY, COLTON Unavailable Unavailab martha HUTCHINS RN, CANDELARIO Unavailable Unavailable PENDRISS OUTSOLE BEVELER, TYLOR Unavailable Unavailable DU DONALD ST, ZEYAD Unavailable Unavailable JIMMY PT, GATITO Unavailable Unavailable LINGTEALBERT HEMMER [employer], NELLY Unavailable Unavailable Payers Payer Name Policy Type Policy Number Effective Date Expira tion Date MEDICARE.NGS.PDGM [id number] Problems Condition Name Condition Details Condition Category [...] 00:00: 00 2024- 03-29 23:59 :00 No [id number] PNA 1 tablet 2 TIMES DAILY 1 tablet 2 TIMES DAILY (route: oral) Med Classific ation: Anti-Infe ctive Agents cefdinir 300 mg capsule 3 00:00: 00 12-19 23:59 :00 No [id number] PNA 1 capsule 2 TIMES DAILY 1 capsule 2 TIMES DAILY (route: oral) Med Classific ation: Anti-Infe ctive Agents fluoxetine 20 mg capsule 12-15 00:00: 00 Yes [id number] COPD 2 capsule DAILY 2 capsule DAILY [...] ON ADMISSION AND PRN FOR RN TO ASSESS/OUTSOLE BEVELER TO OBSERVE PATIENT, WITH NOTIFICATION TO THE [...] ON ADMISSION AND PRN FOR RN TO ASSESS/OUTSOLE BEVELER TO OBSERVE PATIENT, WITH NOTIFICATION TO THE [...] MOTOR HOME EXERCISE PROGRAM. RESPIRATORY MUSCLE STRENGTH MIGRATORY FARM HAND FOR IMPROVED SWALLOW AND/OR VOCAL FUNCTION.? (ST) [...] MOTOR HOME EXERCISE PROGRAM. RESPIRATORY MUSCLE STRENGTH MIGRATORY FARM HAND FOR IMPROVED SWALLOW AND/OR VOCAL FUNCTION.? (ST) [...] End Date/Time Encounter Type Admission Type Attending [facility] Care Facility Care Department Encounter ID Discharge Date Discharge Status Discharge Condition Discharge Reason Percent Goals Met 2023-12-16 00:00:00 2024-01-01 00:00:00 Outpatient NEW ADMISSION CANDELARIO HUTCHINS [facility] [id number] 2024-01-01 00:00:00 DISCHARGED /TRANSFERR ED TO A SHORT-[facility] FOR INPATIENT CARE MODERATE ASSIST WITH TRANSFER/A MBULATION/ [facility] ONLY - TRANSFER TO HOSPITAL 46.67
--- OUTSIDE RECORDS SUMMARY | 2024-09-04 15:39 | XMS_ITS | Clinical Summary ---
Author Organization Unknown Care Team Providers Care Ski Patrol Name Role Phone WILLARD WOODY, COLTON Unavailable Unavailab martha HUTCHINS RN, CANDELARIO Unavailable Unavailable PENDRISS BELT SPLICER, TYLOR Unavailable Unavailable DU DONALD ST, ZEYAD Unavailable Unavailable JIMMY PT, GATITO Unavailable Unavailable LINGTEALBERT GAS DISTRIBUTION AND EMERGENCY CLERK, NELLY Unavailable Unavailable Payers Payer Name Policy Type Policy Number Effective Date Expira tion Date MEDICARE.NGS.PDGM [id number] Problems Condition Name Condition Details Condition Category [...] 00:00: 00 2024- 03-29 23:59 :00 No [id number] PNA 1 tablet 2 TIMES DAILY 1 tablet 2 TIMES DAILY (route: oral) Med Classific ation: Anti-Infe ctive Agents cefdinir 300 mg capsule 3 00:00: 00 12-19 23:59 :00 No [id number] PNA 1 capsule 2 TIMES DAILY 1 capsule 2 TIMES DAILY (route: oral) Med Classific ation: Anti-Infe ctive Agents fluoxetine 20 mg capsule 12-15 00:00: 00 Yes [id number] COPD 2 capsule DAILY 2 capsule DAILY [...] ON ADMISSION AND PRN FOR RN TO ASSESS/BELT SPLICER TO OBSERVE PATIENT, WITH NOTIFICATION TO THE [...] ON ADMISSION AND PRN FOR RN TO ASSESS/BELT SPLICER TO OBSERVE PATIENT, WITH NOTIFICATION TO THE [...] MOTOR HOME EXERCISE PROGRAM. RESPIRATORY MUSCLE STRENGTH ANGULAR DEVELOPER FOR IMPROVED SWALLOW AND/OR VOCAL FUNCTION.? (ST) [...] MOTOR HOME EXERCISE PROGRAM. RESPIRATORY MUSCLE STRENGTH ANGULAR DEVELOPER FOR IMPROVED SWALLOW AND/OR VOCAL FUNCTION.? (ST) [...] End Date/Time Encounter Type Admission Type Attending [facility] Care Facility Care Department Encounter ID Discharge Date Discharge Status Discharge Condition Discharge Reason Percent Goals Met 2023-12-16 00:00:00 2024-01-01 00:00:00 Outpatient NEW ADMISSION CANDELARIO HUTCHINS [facility] [id number] 2024-01-01 00:00:00 DISCHARGED /TRANSFERR ED TO A SHORT-[facility] FOR INPATIENT CARE MODERATE ASSIST WITH TRANSFER/A MBULATION/ [facility] HH ONLY - TRANSFER TO HOSPITAL 46.67
[2024-09-04 15:56] LABS: Appearance Urine Clear; Color Urine Yellow; Glucose Urine UA Negative (Negative); Leukocyte Esterase Urine Negative (Negative); Nitrite Urine Negative (Negative); Specific Gravity - Urine 1.025 (1.005-1.025); Urine Blood Negative (Negative); Urine Ketones Negative (Negative); Urine Protein Negative (Neg-Trace)
[2024-09-04 15:58] LABS: Bacteria Urine None Seen (None Seen); Hyaline Casts Urine 0-2 /LPF (0-2); RBC Urine 0-2 /HPF (0-2); Squamous Epithelial Cell Urine 0-2 /HPF (0-2); WBC Urine 0-5 /HPF (0-5)
[2024-09-04 16:58] LABS: MANUAL DIFF FLAG NO
[2024-09-04 16:59] LABS: Basophils Percent Auto 0.5 % (0-2); Eosinophils Absolute Auto 0.2 X10*3/uL (0.0-0.4); Eosinophils Percent Auto 2.6 % (0-4); Hemoglobin 12.7 g/dl (14.0-18.0); Imm Gran Abs Auto 0.01 X10*3/uL (0.00-0.03); Imm Gran Pct Auto 0.2 % (0.0-0.4); Lymphocytes Absolute Auto 1.6 X10*3/uL (1.2-4.9); Lymphocytes Percent Auto 27.5 % (20-40); Mean Corpuscular HGB Conc 34.3 g/dl (31.0-36.0); Mean Corpuscular Hemoglobin 32.5 pg (27.0-33.0); Mean Corpuscular Volume 94.6 fL (80.0-98.0); Mean Platelet Volume 9.4 fL (9.4-12.4); Monocytes Absolute Auto 0.7 X10*3/uL (0.1-1.2); Monocytes Percent Auto 11.5 % (2-11); Neutrophils Absolute Auto 3.4 x10*3/uL (2.0-8.3); Neutrophils Percent Auto 57.7 % (45-73); Platelet Count 225 X10*3/uL (160-400); Red Blood Count 3.91 X10*6/uL (4.60-5.80); Red Cell Distribution Width 13.5 % (11.0-16.0); White Blood Count 5.8 X10*3/uL (4.8-10.8)
[2024-09-04 17:17] LABS: Alanine Aminotransferase 12 U/L (0-40); Albumin Level 3.3 g/dL (3.5-5.0); Alkaline Phosphatase 106 U/L (39-117); Anion Gap 9 (12-20); Aspartate Amino Transferase 24 U/L (5-37); Bilirubin Total 0.2 mg/dL (0.0-1.0); Blood Urea Nitrogen 17 mg/dL (9-16); Carbon Dioxide 29 mmol/L (22-29); Chloride 102 mmol/L (96-108); Creatinine Clr Calc Pharmacy 66.5; Estimated Glomerular Filt Rate > 60; Glucose Random 96 mg/dL (60-115); Lipase 25 U/L (8-78); Magnesium 2.1 mg/dL (1.6-2.6); Potassium 3.9 mmol/L (3.3-5.1); Sodium 136 mmol/L (135-145); Total Protein 5.9 g/dL (6.5-8.0)
[2024-09-04 18:50] VITALS: BP 108/69; PULSE 61; RESP 16; TEMP 36.3; O2SAT 97
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
--- NOTE | 2024-09-04 19:25 | MHC.EDTECH ---
this tech assumed care @1900, at this time the pt is restng in his stretcher and no needs made aware at this time.
[2024-09-04 19:55] VITALS: BP 108/69; PULSE 61; RESP 16; TEMP 36.3; O2SAT 97
== END 2024-09-04 20:00 | disposition home or self-care (01) ==
PROVIDERS: Physician Assistant Medical; Emergency Provider Internal Medicine; PCP Family Medicine
DX: F03.911 Unspecified dementia, unspecified severity, with agitation (principal); R41.82 Altered mental status, unspecified; Z79.899 Other long term (current) drug therapy
CPT/HCPCS: 36415; 80053; 81001; 83690; 83735; 85025; 99284

== ENCOUNTER 2024-11-24 23:05 | Emergency (ER) | payer MEDICARE, MEDICAID, SELFPAY ==
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
[2024-11-24 23:32] VITALS: BP 120/63; BP 120/80; PULSE 60; PULSE 65; RESP 16; TEMP 36.6; O2SAT 93; O2SAT 98; BMI 20.4
[2024-11-24 23:43] VITALS: BP 120/63; PULSE 65; RESP 16; TEMP 36.6; O2SAT 93
[2024-11-24 23:50] LABS: Appearance Urine Clear; Color Urine Dark Yellow; Glucose Urine UA Negative (Negative); Leukocyte Esterase Urine Negative (Negative); Nitrite Urine Negative (Negative); PH 5.5 (5.0-9.0); Specific Gravity - Urine 1.025 (1.005-1.025); UMIC TRIGGER UACC YES; Urine Blood Negative (Negative); Urine Ketones Trace mg/dL (Negative); Urine Protein 30 (1+) mg/dL (Neg-Trace)
[2024-11-24 23:54] LABS: Bacteria Urine None Seen (None Seen); Hyaline Casts Urine 0-2 /LPF (0-2); RBC Urine 0-2 /HPF (0-2); Squamous Epithelial Cell Urine 0-2 /HPF (0-2); WBC Urine 0-5 /HPF (0-5)
--- NOTE | 2024-11-25 00:17 | MHC.EDTECH ---
Patient was biba ,vitals taken ,urine sample collected and sent to lab ,Patient up for discharged ,Patient was re vital .
[2024-11-25 00:18] VITALS: BP 103/71; PULSE 69; RESP 16; TEMP 36.8; O2SAT 93
[2024-11-25 01:26] VITALS: BP 103/71; PULSE 69; RESP 16; TEMP 36.8; O2SAT 93
== END 2024-11-25 01:33 | disposition home or self-care (01) ==
PROVIDERS: Emergency Provider Emergency Medicine
DX: F03.90 Unspecified dementia, unspecified severity, without behavioral disturbance, psychotic disturbance, mood disturbance, and anxiety (principal)
CPT/HCPCS: 81001; 99282; 99284